=== PATIENT | female | born 1950 | race Caucasian/White ===

== ENCOUNTER 2016-09-12 06:23 | Day surgery (SDC) | payer MEDICARE ==
[2016-09-11 16:41] LABS: BASOPHILS 0.3 % (0.0-2.0); HEMATOCRIT 38.6 % (36.0-48.0); HEMOGLOBIN 12.9 g/dL (12-16); IMMATURE GRANULOCYTES 0.1 % (0-5); LYMPHOCYTES 25.6 % (15-50); MCH 30.5 pg (26.0-34.0); MCHC 33.4 g/dL (31.0-37.0); MCV 91.3 fL (80.0-100.0); MEAN PLATELET VOLUME 10.3 fL (7.4-10.4); MONOCYTES 8.1 % (2-11); NEUTROPHILS 63.9 % (40-80); PLATELET COUNT 200 10x3/uL (130-400); RBC 4.23 10x6/uL (4.00-5.40); RDW 13.9 % (11.5-14.5); WBC 8.6 10x3/uL (4.8-10.8)
[2016-09-11 16:49] LABS: ANION GAP 11.1 mmol/L (8-16); APTT 33.6 SECONDS (22.8-39.4); CALCIUM 8.8 mg/dL (8.5-10.1); CARBON DIOXIDE 30.8 mmol/L (21.0-32.0); CREATININE - SERUM 1.7 mg/dL (0.6-1.3); INR 1.04 (0.85-1.17); POTASSIUM - SERUM 3.9 mmol/L (3.5-5.1); PROTIME 13.5 SECONDS (11.6-15.0)
[~2016-09-12] VITALS: Ht 162.6 cm; Wt 61.7 kg
[2016-09-12] MEDS ORDERED: LIPITOR80 MG PO (09:09)
[2016-09-12] MEDS ORDERED: PENTOXIFYLLINE400 MG PO (09:09)
[2016-09-12] MEDS ORDERED: XANAX0.5 MG PO (09:10)
[2016-09-12] MEDS ORDERED: PRINIVIL20 MG PO (09:11)
[2016-09-12] MEDS ORDERED: COREG6.25 MG (09:11)
[2016-09-12] MEDS ORDERED: LANTUS INSULIN10 ML SC (09:12)
[2016-09-12] MEDS ORDERED: HYDROCODONE-APA1 TAB PO (09:12)
[2016-09-12] MEDS ORDERED: HUMALOG MIX 50/53 ML SC (09:13)
[2016-09-12] MEDS ORDERED: NEURONTIN600 MG PO (09:15)
[2016-09-12] MEDS ORDERED: FUROSEMIDE40 MG PO (09:16)
[2016-09-12] MEDS ORDERED: ISOSORBIDE DINI30 MG PO (09:16)
[2016-09-12 09:32] VITALS: Ht 162.6 cm; Wt 61.7 kg
--- NOTE | 2016-09-19 10:18 | OP ---
PATIENT NAME: BRI BEAN MEDICAL RECORD: [id number] :50 LOCATION:D.OPS ADMISSION DATE: SURGEON: SHARRON TREJO MD DATE OF OPERATION: 09/12/2016 REFERRING PHYSICIAN: Dr. Perez and Dr. Sands. POSTOPERATIVE DIAGNOSIS: Ischemic steal syndrome, left upper extremity secondary to a patent brachiocephalic AV fistula. POSTOPERATIVE DIAGNOSIS: Ischemic steal syndrome, left upper extremity secondary to a patent brachiocephalic AV fistula. OPERATION PERFORMED: Ultrasound-guided access times 1, fistulogram, retrograde brachial artery arteriogram, an open Glasgow banding procedure with placement of 2-0 Prolene ties spaced 1 cm apart, primary both tied around the cephalic vein over an endoluminal 4 mm diameter angioplasty balloon and also coiling of a large diverting tributary at the mid arm level. SURGEON: Sharron Trejo MD ANESTHESIA: General with LMA per DERRICK MAN. PREOPERATIVE NOTE: Ms. Bean is an unfortunate 65-year-old woman, who unfortunately addicted to tobacco and continues to smoke a pack of cigarettes daily. She had a left distal brachial artery to cephalic vein AV fistula created in May of another hospital and that fistula has remained patent and it is not being used and she has ischemic pain in the left hand and appears very diminished radial artery Doppler flow signals and ulnar artery flow signals, which do increase with occlusion of the AV fistula. The patient was brought to the operating room at this time with plans to do a fistulogram and retrograde brachial arteriogram and most likely a banding procedure, though I will possibly consider a major open revision by extending the arterial anastomosis proximally with the PTFE graft up on to the axillary artery. PROCEDURE IN DETAIL: Under general anesthesia in supine position, the patient was prepped and draped in sterile manner. The fistula was accessed near the shoulder directed in retrograde direction peripherally. This was done with ultrasound guidance and micropuncture technique and this led up to placement of a 6-Kuwaiti introducer. Contrast injection through the introducer with and without the fistula occluded proximally demonstrated a wide open fistula with no impairment to venous runoff and a large arterial anastomosis and essentially no flow distally into the forearm. I was then able to pass a guidewire and an angled glide catheter distally through the arterial anastomosis and then to the brachial artery and directing the catheter in a retrograde manner proximally in the brachial artery. I was unable to inject contrast and demonstrated the brachial artery and runoff anatomy with and without occlusion of the fistula and again, I demonstrated that there was very little flow into the forearm and hand with the fistula open and there is flow into the hand with the fistula occluded, although the vessels, radial and ulnar artery and palmar arches are very small. I noted that the arterial anastomosis was quite long relative to the arterial diameter and this is a pretty high flow fistula considering the size of the patient's vessels. I then made an incision just above the antecubital space and exposed the cephalic vein fistula and dissected it circumferentially. I placed a 4 mm diameter 4 cm long angioplasty balloon in that portion of the fistula OPERATIVE REPORT [id number] BRI BEAN over a Glidewire and I placed two 2-0 Prolene ligatures around the fistula and around the 4-mm diameter balloon. These were tied snugly and then the balloon removed. Repeat contrast studies demonstrated an approximately 2 cm length of the fistula to be narrowed to a diameter of 4 mm and a significant improvement inflow into the distal brachial and proximal radial and ulnar arteries. I also noted a large tributary about mid humeral level which seemed to be causing some significant diversion and I opted to go ahead and occlude that tributary with coils. I placed a 5 and the 6 tornado coil and then injected contrast, which demonstrated a complete occlusion of the tributary. At this point, I terminated the operation, removed the introducer sheath and obtained hemostasis with 4-0 Prolene [id number] suture. The incision exposing the fistula just above the antecubital space was irrigated with saline and infiltrated with 0.25% Marcaine without epinephrine. The skin incision was closed with running intracuticular 4-0 Monocryl and Dermabond glue and both sites were then dressed with Maxorb Ag, Tegaderm and Cavilon skin prep. There was an area has slight skin tear over the distal forearm and this area was carefully dressed also with a Tegaderm with some Cavilon skin prep. The patient's radial and ulnar arteries were again examined with Doppler and I found disappointingly that there did not seem to be a great deal of improvement nor significant improvement by then in the color and temperature of her hand. We went ahead then and awakened her and took her to the recovery room in stable condition. Blood loss during the procedure was insignificant and unreplaced and all sponges, instruments, and needles were accounted for. No drain was used and no surgical specimen was submitted for histopathology. The patient will be discharged home today. She will continue her home medications, which include topical verapamil cream b.i.d. to the base of the fingers on the left hand and Trental 400 mg p.o. t.i.d. She is again encouraged to abstain from the use of tobacco of all times. She will continue her other home medications, which I believe included a 10 mg hydrocodone tablets. I have not given her a prescription for any more narcotics today. I see her back in my office next week and we will decide whether additional surgery is necessary. I am hopeful that we are still be some clinical improvement in her pain symptoms from what we accomplish today. If not, I think the next option is to go ahead with a PTFE graft from the axillary artery proximally and tie it in probably in to in to the cephalic vein and the arm just above the area of the vein that are banded today. TRANSINT:[id number] Voice Confirmation ID: [id number] DOCUMENT ID: [id number] SHARRON TREJO MD at 1018 CC: ISABEL PEREZ MD, MARLENA UP and DEAN SANDS MD [id number] DICTATION DATE: 09/12/16 1259 CULINARY DIRECTOR: 09/12/16 194 [facility] 09/12/16 [facility] [address] [place] [address]
== END 2016-09-12 14:00 | disposition home or self-care (01) ==
LOC: D.OPS 06:23
PROVIDERS: Surgery
DX: T82.898A Other specified complication of vascular prosthetic devices, implants and grafts, initial encounter (principal); F17.219 Nicotine dependence, cigarettes, with unspecified nicotine-induced disorders

== ENCOUNTER → 2018-01-11 12:38 | Outpatient (CLI) | payer MEDICARE ==
[2016-09-12 09:32] VITALS: BMI 23.4
[~2018-01-11 12:38] MED LIST: COREG6.25 MG; FUROSEMIDE40 MG PO; HUMALOG MIX 50/53 ML SC; HYDROCODONE-APA1 TAB PO; ISOSORBIDE DINI30 MG PO; LANTUS INSULIN10 ML SC; LIPITOR80 MG PO; NEURONTIN600 MG PO; PENTOXIFYLLINE400 MG PO; PRINIVIL20 MG PO; XANAX0.5 MG PO
== END | disposition home or self-care (01) ==
LOC: D.CT 12:00
DX: G51.0 Bell's palsy (principal)

== ENCOUNTER → 2019-01-04 09:21 | Outpatient (CLI) | payer MEDICARE ==
[2016-09-12 09:32] VITALS: BMI 23.4
--- NOTE | 2019-01-10 15:03 | EC ---
PATIENT:BRI HERNANDEZ DATE OF SERVICE: 01/04/19 SEX: F MEDICAL RECORD: [id number] DATE OF : 50 LOCATION:D.FORMERLY [facility] AGE OF PATIENT: 68 ADMISSION DATE: 01/04/19 REFERRING PHYSICIAN: INTERPRETING PHYSICIAN: JAZZMINE HARVEY MD ECHOCARDIOGRAM REPORT ECHO CHARGES 4 ECHO COMPLETE Date: 01/04/19 CLINICAL DIAGNOSIS: CARDIOMYOPATHY/DYSPNEA H/O PVD/HTN ECHOCARDIOGRAPHIC MEASUREMENTS (adult normal given) AC root (d.<3.7cm) 2.7 cm LV Septum d (<1.2 cm> 1.2 cm Valve Excursion 1.8 cm LV Septum (systole) 1.4 cm Left Atria (s.<4.0cm> 5.3 cm LVPW d(<1.2cm) 1.0 cm RV (d.<2.3cm) 2.7 cm LVPW (sytole) 1.2 cm LV diastole(<5.6CM) 7.4 cm MV E-F(>70mm/sec) cm LV systole 6.3 cm LVOT Diameter 1.7 cm MV exc.(>10mm) cm Est.ejection fraction (50-75%) % DOPPLER: LVIT cm/sec A 172 cm/sec E 157 cm/sec LA cm/sec RVSP 47.0 mmHg LVOT 77.0 cm/sec AOP1/2T m/s Asc. Ao 152 cm/sec RVOT 52.0 cm/sec RA cm/sec PA 83.0 cm/sec AV Gradient Peak 9.2 mmHg AV Mean 4.5 mmHg AV Area 1.3 cm MV Gradient Peak 11.2 mmHg MV Mean 3.8 mmHg MV Area cm COMMENTS: OP - HC Event Planning Intern: 1 ISA LIS Stock Preparation Operator: 3 Dr. Diaz TAPE# PACS Pericardial Effusion N DATE OF SERVICE: Adequate 2D, color flow imaging, spectral Doppler, and M-Mode LVH is present. LV internal dimensions are dilated. LV is globally hypokinetic with reduced EF, estimated EF at 20% to 25%. Aortic valve sclerosis is without stenosis by Doppler interrogation. Left atrium is likewise dilated at 5.3 cm. Mitral valve shows no prolapse. Pjge-yw-qotlqghd MR. Right-sided chambers are grossly normal. Mild TR. ECHOCARDIOGRAM REPORT [id number] BRI HERNANDEZ TRANSINT:[id number] Voice Confirmation ID: [id number] DOCUMENT ID: [id number] JAZZMINE HARVEY MD at 1503 CC: [id number] DICTATION DATE: 01/06/19 1304 JAWBONE PULLER: 01/06/19 1343 DEP CLI 01/04/19 [place] [id number] [place] [id number]
== END | disposition home or self-care (01) ==
LOC: D.HCCARDIO 09:21
PROVIDERS: ATTEND Internal Medicine Interventional Cardiology
DX: I25.10 Atherosclerotic heart disease of native coronary artery without angina pectoris (principal)

== ENCOUNTER 2019-09-13 15:54 | Inpatient (IN) | payer MEDICARE ==
[~2019-09-13] VITALS: Ht 165.1 cm; Wt 77.6 kg
[~2019-09-13 15:54] MED LIST changes: -COREG6.25 MG; +COREG6.25 MG PO
[2019-09-13 17:24] VITALS: BP 122/71
[2019-09-13 17:33] VITALS: BP 122/71
[2019-09-13 17:33] LABS: HEMATOCRIT 37.3 % (36.0-48.0); HEMOGLOBIN 12.2 g/dL (12-16); MCH 30.7 pg (26.0-34.0); MCHC 32.7 g/dL (31.0-37.0); PLATELET COUNT 182 10x3/uL (130-400); RBC 3.97 10x6/uL (4.00-5.40); RDW 14.5 % (11.5-14.5)
[2019-09-13 17:50] LABS: CALCIUM 8.9 mg/dL (8.5-10.1); CARBON DIOXIDE 22.6 mmol/L (21.0-32.0); CREATININE - SERUM 3.8 mg/dL (0.6-1.3); POTASSIUM - SERUM 4.6 mmol/L (3.5-5.1)
[2019-09-13 17:56] LABS: LYMPHOCYTES 3 % (15-50); MONOCYTES 2 % (2-11); NEUTROPHILS 90 % (40-80); PLATELET ESTIMATE NORMAL
[2019-09-13 18:18] LABS: BILIRUBIN - TOTAL 1.01 mg/dL (0.2-1.3); MAGNESIUM - SERUM 1.8 mg/dL (1.8-2.4); PHOSPHOROUS 4.8 mg/dL (2.5-4.9)
--- NOTE | 2019-09-13 18:55 | NUR ---
I CONCUR WITH THE PEDIATRIC SOCIAL WORKER ASSESSMENT OF THIS PATIENT.
--- NOTE | 2019-09-13 19:26 | NUR ---
EVENING ROUNDS COMPLETE. PT LAYING IN BED. AROUSES TO VOICE. FAMILY AT BEDSIDE. NO SIGNS OF DISTRESS. PT DENIES ANY NEEDS AT THIS TIME. CL IN REACH, BED IN LOWEST POSITION.
[2019-09-13 20:00] VITALS: BP 133/73
--- NOTE | 2019-09-13 23:15 | NUR ---
THIS NURSE NOTED THAT PT WAS ONLY HAVING 4 BREATHS PER MINUTE. VSS STABLE WITH BP 148/75, HR 86, O2 SAT 98% ON 3 L NC.
--- NOTE | 2019-09-13 23:36 | NUR ---
FOLLOWED THROUGH WITH NARCAN ORDER DIRECTED. PT HAD NO RESPONSE TO NARCAN. PT IS STILL JUST LETHARGIC. WITH RESP AT 4 BPM. PAGED AMADO ADVERTISING STRATEGIST AT THIS TIME. ABG COMPLETE. PT APPEARS TO BE IN RESPIRATORY ACIDOSIS.
[2019-09-14] VITALS: BP 149/70
[2019-09-14 04:00] VITALS: BP 135/65
--- NOTE | 2019-09-14 04:10 | NUR ---
INCREASED FIO2 TO 60% PER ABG
--- NOTE | 2019-09-14 07:43 | NUR ---
REPORT RECIEVED. PT SITTING SEMI FOWLERS CURRENTLY WEARING BIPAP. PT IS CURRENTLY LETHARGIC. PT HAS A R FA PIV INFUSING NS @ 50. SHE IS A L ARM RESERVE DUE TO A L AV FISTULA. BED LOCKED AND IN LOWEST POSITION. WILL CTM
[2019-09-14 09:24] VITALS: BP 124/67
[2019-09-14 09:31] VITALS: BP 124/67
--- NOTE | 2019-09-14 13:16 | NUR ---
RIGHT LOWER LEG HAS 2CM X 4CM BLISTER AND NUMEROUS OTHER RUPTURED BLISTERS. THE LEG IS EDEMATOUS, RED AND SHINY. THERE IS A MODERATE SEROUS DRAINAGE WITHOUT ODOR. RECOMMENDED KEEPING CLEAN, DRY AND ELEVATED. WOUND CARE WILL MONITOR.
[2019-09-14 13:39] VITALS: Ht 165.1 cm; Wt 77.6 kg
--- NOTE | 2019-09-14 16:14 | NUR ---
RESP UL ON CONT PUSE OX SHOWS 97%. CALL LIGHT IN REACH. WILL MONITOR NEEDS.
--- NOTE | 2019-09-14 19:37 | NUR ---
EVENING ROUNDS COMPLETE. PT SITTING UP IN BED, ALERT. FAMILY AT BEDSIDE. PT C/O PAIN IN R LEG 05/05. PT DOES NOT APPEAR TO BE IN DISTRESS. WILL REVIEW EMAR. PT DENIES ANY OTHER NEEDS AT THIS TIME CL IN REACH, BED IN LOWEST POSITION.
[2019-09-14 20:00] VITALS: BP 135/64
[2019-09-15] VITALS (7 sets, daily range): BP systolic 135–150; BP diastolic 45–74
[2019-09-15 05:35] LABS: BASOPHILS 0.2 % (0-2); EOSINOPHILS 1.3 % (0-7); HEMATOCRIT 33.9 % (36.0-48.0); HEMOGLOBIN 10.8 g/dL (12-16); IMMATURE GRANULOCYTES 0.2 % (0-5); LYMPHOCYTES 10.6 % (15-50); MCH 30.4 pg (26.0-34.0); MCHC 31.9 g/dL (31.0-37.0); MCV 95.5 fL (80.0-100.0); MEAN PLATELET VOLUME 11.9 fL (7.4-10.4); MONOCYTES 5.1 % (2-11); NEUTROPHILS 82.6 % (40-80); PLATELET COUNT 172 10x3/uL (130-400); RBC 3.55 10x6/uL (4.00-5.40); RDW 14.8 % (11.5-14.5)
[2019-09-15 05:58] LABS: ALBUMIN 2.5 g/dL (3.4-5.0); ANION GAP 17.6 mmol/L (8-16); BILIRUBIN - TOTAL 0.62 mg/dL (0.2-1.3); CALCIUM 8.6 mg/dL (8.5-10.1); CARBON DIOXIDE 21.8 mmol/L (21.0-32.0); CREATININE - SERUM 4.1 mg/dL (0.6-1.3); POTASSIUM - SERUM 4.4 mmol/L (3.5-5.1); PROTEIN - SERUM 6.1 g/dL (6.4-8.2); VANCOMYCIN - RANDOM 19.3 ug/mL (10.0-20.0)
[2019-09-15 06:21] LABS: WBC 9.5 10x3/uL (4.8-10.8)
[2019-09-15 11:28] LABS: BILIRUBIN NEGATIVE (NEGATIVE); GLUCOSE NEGATIVE (NEGATIVE); KETONE NEGATIVE (NEGATIVE); NITRITE NEGATIVE (NEGATIVE); SPECIFIC GRAVITY 1.015 (1.005-1.020); UROBILINOGEN NORMAL (NORMAL)
[2019-09-15 11:29] LABS: BACTERIA MODERATE /hpf (NEGATIVE); EPITHELIAL CELLS 0-5 /hpf (0-5); RED CELLS - URINE 0-5 /hpf (0-5); TALC POWDER CRYSTALS 0-5 /hpf (NONE SEEN)
--- NOTE | 2019-09-15 19:40 | NUR ---
REPORT RECIEVED AND ROUNDIGN COMPLETE. PATIENT LATYING IN BED IN HIGH FOWLERS, PATIENT HAS EYES CLOSED BUT EASILY AROUSED. PATIENT IS WEARING NASAL CANNULA AT THIS TIME WITH O2 AT 3L. PATIENT STATES SHE HAS NO NEEDS AT THIS TIME. PATIENT HAS A RIGHT FOREARM PIV THAT IS RUNNING FLUIDS AT KVO, PIV IS PATENT AND SHOWS NO S/SX OF INFILTRATION OR INFECTION. PATIENT SHOWS NO S/SX OF DISTRESS AND STATES SHE HAS NO NEEDS, CALL LIGHT WITHIN REACH AND BED IN LOWEST LOCKED POSITION.
--- NOTE | 2019-09-15 23:52 | NUR ---
WHILE PUTTING PATIENT ON BED OWENS SHE COMPLAINED OF N/V, TREATED PER SEP.
[2019-09-16 01:18] VITALS: BP 135/68
--- NOTE | 2019-09-16 01:56 | NUR ---
TALKED WITH JENNI FROM RENAL ABOUT PAIN MEDICATION SHE SAID TO CHANGE ORDER WILL PUT NEW ORDER IN AND FOLLOW IT WITH PATIENT.
--- NOTE | 2019-09-16 03:45 | NUR ---
I have reviewed this patient and I concur with the Shift Assessment completed by the Licensed Practical Nurse today this shift.
[2019-09-16 04:21] LABS: BASOPHILS 0.2 % (0-2); EOSINOPHILS 0.4 % (0-7); HEMATOCRIT 35.3 % (36.0-48.0); HEMOGLOBIN 11.2 g/dL (12-16); IMMATURE GRANULOCYTES 0.2 % (0-5); LYMPHOCYTES 6.9 % (15-50); MCH 30.5 pg (26.0-34.0); MCHC 31.7 g/dL (31.0-37.0); MCV 96.2 fL (80.0-100.0); MEAN PLATELET VOLUME 11.4 fL (7.4-10.4); MONOCYTES 3.6 % (2-11); NEUTROPHILS 88.7 % (40-80); PLATELET COUNT 179 10x3/uL (130-400); RBC 3.67 10x6/uL (4.00-5.40); RDW 14.4 % (11.5-14.5); WBC 8.5 10x3/uL (4.8-10.8)
[2019-09-16 04:42] VITALS: BP 150/81
[2019-09-16 04:51] LABS: ALBUMIN 2.5 g/dL (3.4-5.0); ANION GAP 17.8 mmol/L (8-16); BILIRUBIN - TOTAL 0.78 mg/dL (0.2-1.3); CARBON DIOXIDE 22.8 mmol/L (21.0-32.0); CREATININE - SERUM 4.1 mg/dL (0.6-1.3); POTASSIUM - SERUM 4.6 mmol/L (3.5-5.1); PROTEIN - SERUM 6.8 g/dL (6.4-8.2)
--- NOTE | 2019-09-16 07:45 | NUR ---
AM ROUNDS COMPLETED. INTRODUCED MYSELF TO PT PRIMARY RN FOR TODAYS SHIFT. PT IS A&O SITTING UP IN BED RESTING QUIETLY. PT NEEDING TO USE BR. ASSISTED HER ONTO BEDPAN AND SHE ROLLED VERY WELL ON HER OWN AND DID NOT NEED ASSISTANCE. VOIDED 450ML CLEAR YELLOW URINE. REPOSITIONED PT UP IN BED FOR COMFORT AND WILL CPOC.
[2019-09-16 08:00] VITALS: BP 149/86
[2019-09-16] MEDS ORDERED: INSULIN LISPRO (10:01)
[2019-09-16] MEDS ORDERED: BUMEX2 MG PO (10:01)
[2019-09-16] MEDS ORDERED: LASIX80 MG PO (10:02)
--- NOTE | 2019-09-16 10:19 | NUR ---
PT IS VOMITING YELLOWISH WITH FOOD PARTICLES LIQUID. PROVIDED WASH CLOTHES AND EMESIS BAGS. ALREADY PROVIDED PT WITH SEYMOUR CLAY EARLIER, DISCUSSED WITH JAZMINE BRAUN AT BEDSIDE AND WILL GET SOMETHING EXTRA TO HELP.
[2019-09-16 12:00] VITALS: BP 134/74
--- NOTE | 2019-09-16 12:39 | NUR ---
PT CALLED NEEDING TO USE BEDPAN. ASSISTED PT AND SHE WAS ABLE TO VOID 350CC CLEAR YELLOW URINE. REPOSITIONED PT UP IN BED AND SAT HER UP SO SHE COULD EAT. PTS R.LEG IS WEEPING BUT ALSO REALLY DRY AND CRACKING ON HER FOOT SO I PROVIDED HER WITH SOME BARRIER SPRAY WITH SKIN HEALING PROPERTIES AND RUBBED IT ON HER ARMS WELL TO HELP WITH DRY SKIN. PT VOICED THANKS AND STATES IT ALREADY FEELS A LITTLE BETTER. PT STATES HER NAUSEA HAS WENT AWAY AFTER SHE VOMITED THAT ONE TIME. NO CURRENT NEEDS AT THIS TIME. CL IN REACH, BED IN LOWEST, SIDE RAILS X2. WILL CTM.
--- NOTE | 2019-09-16 13:29 | NUR ---
Nutrition Follow-up: Pt reports poor appetite. Observed small amt of lunch eaten. Vomited this AM but no N/V at time of visit. C/o dry mouth. Agreed to try Nepro. Diet: Renal ADA No new wt; last wt: 171# (09/14) Last BM: 09/11 per pt Labs noted: K+ 4.6, Glu 152, Alb 2.5 Meds noted: Pepcid, Bumex, Humalog, Zofran -Will send Nepro with dinner tonight for pt trial. - may consider appetite stimulant. -RD following.
[2019-09-16 16:00] VITALS: BP 144/77
--- NOTE | 2019-09-16 16:29 | NUR ---
FSBS 181 PROVIDED PT WITH INSULIN PER SS. PT SITTING UP IN BED RESTING QUIETLY AND STATES SHE IS FEELING PRETTY GOOD OVERALL AND HAS HAD A GOOD DAY. PT WAITING PATIENTLY ON DINNER. NO CURRENT NEEDS. WILL CTM.
--- NOTE | 2019-09-16 16:42 | NUR ---
Rehab Note- Acute Inpatient Rehab prescreen order received. The patient has [facility] insurance and will require a PreAuth prior to an inpatient acute rehab stay. The patient has a pending OT Eval that will be needed for the PreAUth process. Will follow at this time. Thank you for this referral! Lidia Chaudhari RN Clinical Liaison, [facility] Rehab
--- NOTE | 2019-09-16 18:45 | NUR ---
PT C/O PAIN REQUESTING PRN PAIN MEDICATION. WILL PROVIDE HER WITH ONE. PT STATES SHE HAD A GOOD DAY OVERALL. PT IS CURRENTLY RESTING WITH HER NC OFF AND PULSE OX IS 92%. PT DENIES ANY FURTHER NEEDS AT THIS TIME. WILL PASS ON IN SHIFT REPORT.
--- NOTE | 2019-09-16 18:53 | MORECARE ---
CASE MANAGEMENT DISCHARGE SUMMARY PATIENT: BRI HERNANDEZ UNIT: [id number] ADM DATE: 09/13/19 AGE: 68 : 50 SEX: F ROOM/BED: D.2103 AUTHOR: ISABELLE SANCHEZ PHYSICIAN: REFERRING PHYSICIAN: CRISTINO KNOTT MD DATE OF SERVICE: 09/16/19 Discharge Plan Patient Name: BRI HERNANDEZ Facility: [facility]:[place] : 1950 Planned Disposition: Inpatient Rehab Anticipated Discharge Date: 09/19/19 Discharge Date: Expected LOS: 6 Initial Reviewer: [email or web address] Initial Review Date: 09/16/2019 Generated: 09/16/19 7:53 pm DCPIA - Discharge Planning Initial Assessment Updated by [email or web address]: Angel George on 09/16/19 6:49 pm * Is the patient Alert and Oriented? Yes * How many steps to enter\exit or inside your home? NONE * PCP DR. RHOADES * Pharmacy [facility] * Preadmission Environment Home with Family * ADLs Independent * Equipment Bedside Commode Oxygen Rolling Walker Wheelchair * Other Equipment HOME OXYGEN ONLY [place] * List name and contact numbers for known caregivers / representatives who currently or will assist patient after discharge: KRISTIE HERNANDEZ, SPOUSE, * Verbal permission to speak to the caregivers and representatives has been obtained from the patient. N/A * Community resources currently utilized None * Please name any agencies selected above. NONE * Additional services required to return to the preadmission environment? No * Can the patient safely return to the preadmission environment? Yes * Has this patient been hospitalized within the prior 30 days at any hospital? No External Providers External Provider: [facility] Next Contact Date: 09/16/2019 Service Request Date: Service Type: Resolution: Reviewer: Comments: Patient Name: BRI HERNANDEZ Page [phone] at 1853 All edits/amendments must be made on the electronic document DICTATION DATE: 09/16/191852 PRODUCTION HARDENER: IRAM 09/16/191852 RPT#: [id number] DC DATE: STATUS: ADM IN [facility] [address] [place] [address] END OF REPORT
--- NOTE | 2019-09-16 19:07 | MORECARE ---
CASE MANAGEMENT DISCHARGE SUMMARY PATIENT: BRI HERNANDEZ UNIT: [id number] ADM DATE: 09/13/19 AGE: 68 : 50 SEX: F ROOM/BED: D.2103 AUTHOR: LAURA,DOC PHYSICIAN: REFERRING PHYSICIAN: CRISTINO KNOTT MD DATE OF SERVICE: 09/16/19 Discharge Plan Patient Name: BRI HERNANDEZ [facility] [facility] 1950 Planned Disposition: Inpatient Rehab Anticipated Discharge Date: 09/19/19 Discharge Date: Expected LOS: 6 Initial Reviewer: [email or web address] Initial Review Date: 09/16/2019 Generated: 09/16/19 8:06 pm Comments DCP- Discharge Planning Updated by [email or web address]: Angel George on 09/16/19 6:[address] Patient Name: BRI HERNANDEZ Admission Status: Urgent Accout number: [id number] Admission Date: 09-13-2019 : 1950 Admission Diagnosis: Attending: CRISTINO KNOTT Current LOS: 3 Anticipated DC Date: 09-19-2019 Planned Disposition: Inpatient Rehab Primary Insurance: [facility] MEDICARE SOLUTIONS PLANNED EXTERNAL PROVIDER: [facility] Discharge Planning Comments: CM RECEIVED ORDE FOR NIPPV AND OXYGEN TESTING. ORDER FOR WALK TESTING FOR HOME OXYGEN RECEIVED. CM MET WITH PT IN ROOM TO DISCUSS DISCHARGE PLANNING AND NEEDS. PT REPORTS LIVING AT HOME INDEPENDENTLY WITH HER SPOUSE. PT HAS BEDSIDE COMMODE, HOME OXYGEN FROM [facility], ROLLING WALKER AND SHOWER CHAIR. PT HAS NO OUTSIDE SERVICES ASSISTING IN THE HOME. CM DISCUSSED AVAILABILITY OF HOME HEALTH, REHAB SERVICES AND MEDICAL EQUIPMENT. PT WANTS REHAB AT [facility] AND IF DECLINED, [facility]. PT WANTS HER NIPPV FROM [facility]. CHOICE COMPLETED. CM OBTAINED ORDER FOR INPATIENT REHAB PRESCREENING. CM FAXED REFERRAL TO [facility] FOR NIPPV, FAX [phone]. CM WAITING INPATIENT REHAB PRESCREENING FOR [facility] IN[facility] WELL INSURANCE AUTHORIZATION FOR REHAB SERVICES. CM WAITING PROCESSING AND INSURANCE APPROVAL FOR NIPPV FROM [facility]. Spring Forger: Angel George DCPIA - Discharge Planning Initial Assessment Updated by [id number]: Angel George on 09/16/19 6:49 pm * Is the patient Alert and Oriented? Yes * How many steps to enter\exit or inside your home? NONE * PCP DR. RHOADES * Pharmacy [facility] * Preadmission Environment Home with Family * ADLs Independent * Equipment Bedside Commode Oxygen Rolling Walker Wheelchair * Other Equipment HOME OXYGEN ONLY [place] * List name and contact numbers for known caregivers / representatives who currently or will assist patient after discharge: KRISTIE HERNANDEZ, SPOUSE, * Verbal permission to speak to the caregivers and representatives has been obtained from the patient. N/A * Community resources currently utilized None * Please name any agencies selected above. NONE * Additional services required to return to the preadmission environment? No * Can the patient safely return to the preadmission environment? Yes * Has this patient been hospitalized within the prior 30 days at any hospital? No Coverage Notice Reviewer: [email or web address] - Angel George Notice Issued Date-Time: 09/16/2019 15:55 Notice Type: Patient Choice Letter Notice Delivered To: Patient Relationship to Patient: Power Saw Operator Name: Delivery Method: HAND - Hand Delivered Faye Days: Prior Verbal Notification: Recipient Understood Notice: Yes Recipient Signature: Yes Med Rec Note Co-signed by Attending: Coverage Notice Comment: OJSE E FOR DME 1-[facility] INPT [facility]HAB 2-[facility] Last DP export: 09/16/19 5:53 p Patient Name: BRI HERNANDEZ Page [phone] at 1907 All edits/amendments must be made on the electronic document DICTATION DATE: 09/16/191905 BUILDING CODE INSPECTOR: IRAM 09/16/191905 RPT#: [id number] DC DATE: STATUS: ADM IN [facility] [address] [place] [address] END OF REPORT
[2019-09-16 20:30] VITALS: BP 122/69
[2019-09-17 00:30] VITALS: BP 138/67
[2019-09-17 04:30] VITALS: BP 136/67
[2019-09-17 04:56] LABS: BASOPHILS 0.2 % (0-2); EOSINOPHILS 1.9 % (0-7); HEMATOCRIT 33.8 % (36.0-48.0); HEMOGLOBIN 10.8 g/dL (12-16); IMMATURE GRANULOCYTES 0.2 % (0-5); LYMPHOCYTES 12.5 % (15-50); MCH 30.3 pg (26.0-34.0); MCV 94.9 fL (80.0-100.0); MEAN PLATELET VOLUME 11.3 fL (7.4-10.4); MONOCYTES 6.3 % (2-11); NEUTROPHILS 78.9 % (40-80); PLATELET COUNT 183 10x3/uL (130-400); RBC 3.56 10x6/uL (4.00-5.40); RDW 14.2 % (11.5-14.5); WBC 8.2 10x3/uL (4.8-10.8)
[2019-09-17 05:26] LABS: ALBUMIN 2.3 g/dL (3.4-5.0); ANION GAP 14.7 mmol/L (8-16); BILIRUBIN - TOTAL 0.6 mg/dL (0.2-1.3); CALCIUM 8.7 mg/dL (8.5-10.1); CARBON DIOXIDE 23.3 mmol/L (21.0-32.0); CREATININE - SERUM 4.2 mg/dL (0.6-1.3); PROTEIN - SERUM 6.5 g/dL (6.4-8.2); VANCOMYCIN - RANDOM 28.5 ug/mL (10.0-20.0)
[2019-09-17 08:00] VITALS: BP 146/72
--- NOTE | 2019-09-17 09:24 | NUR ---
PT AWAKE AND ORIENTED, FALLS ASLEEP EASILY. UP TO SIDE SIDE OF BED WITH MINIMAL ASSIST, PT STATES SHE CAN'T SEEM TO BARE WEIGHT ON HER LEG/FOOT/ CL IN REACHH, SRX2.
--- NOTE | 2019-09-17 11:23 | NUR ---
I have reviewed this patient and I concur with the Shift Assessment completed by the Licensed Practical Nurse today this shift.
[2019-09-17 16:00] VITALS: BP 126/75
[2019-09-17 21:30] VITALS: BP 156/74
[2019-09-18 04:30] VITALS: BP 148/72
[2019-09-18 05:02] LABS: BASOPHILS 0.5 % (0-2); EOSINOPHILS 4.2 % (0-7); HEMATOCRIT 32.9 % (36.0-48.0); HEMOGLOBIN 10.5 g/dL (12-16); IMMATURE GRANULOCYTES 0.3 % (0-5); LYMPHOCYTES 16.2 % (15-50); MCH 30.3 pg (26.0-34.0); MCHC 31.9 g/dL (31.0-37.0); MCV 94.8 fL (80.0-100.0); MEAN PLATELET VOLUME 11.3 fL (7.4-10.4); MONOCYTES 9.4 % (2-11); NEUTROPHILS 69.4 % (40-80); PLATELET COUNT 174 10x3/uL (130-400); RBC 3.47 10x6/uL (4.00-5.40); RDW 14.5 % (11.5-14.5); WBC 6.5 10x3/uL (4.8-10.8)
[2019-09-18 05:30] LABS: ALBUMIN 2.3 g/dL (3.4-5.0); ANION GAP 13.3 mmol/L (8-16); BILIRUBIN - TOTAL 0.56 mg/dL (0.2-1.3); CALCIUM 8.4 mg/dL (8.5-10.1); CARBON DIOXIDE 25.7 mmol/L (21.0-32.0); CREATININE - SERUM 4.1 mg/dL (0.6-1.3); PROTEIN - SERUM 6.1 g/dL (6.4-8.2)
[2019-09-18 08:00] VITALS: BP 150/65
--- NOTE | 2019-09-18 09:27 | NUR ---
PT AWAKE AND OREINTED, USED BEDPAN. LEG LOOKS WORSE THAN YESTERDAY. SHINNY AND GREEN DRAINAGE IS MORE PRESENT. PT DOES STATE THAT THE LEG DOES NOT HURT MORE AND IS EASIER TO MOVE. CL IN REACH, SRX2, NO FAMILY AT BEDSIDE.
[2019-09-18 16:00] VITALS: BP 153/70
--- NOTE | 2019-09-18 19:22 | NUR ---
REPROT RECEIVED. PT UP IN BED WATCHING TV. ASSISTED PT TO PUT O2 BACK ON. RR EVEN AND UNLABORED. NO S/SX OF DISTRESS OBSERVED. PT DENIES NEEDS AT THIS TIME. SRX2, WILL CTM.
[2019-09-18 20:30] VITALS: BP 148/66
[2019-09-19 00:30] VITALS: BP 143/68
[2019-09-19 04:30] VITALS: BP 144/73
[2019-09-19 05:59] LABS: BASOPHILS 0.3 % (0-2); EOSINOPHILS 3.2 % (0-7); HEMATOCRIT 33.8 % (36.0-48.0); HEMOGLOBIN 10.9 g/dL (12-16); IMMATURE GRANULOCYTES 0.3 % (0-5); LYMPHOCYTES 13.3 % (15-50); MCH 30.2 pg (26.0-34.0); MCHC 32.2 g/dL (31.0-37.0); MCV 93.6 fL (80.0-100.0); MEAN PLATELET VOLUME 11.2 fL (7.4-10.4); MONOCYTES 8.7 % (2-11); NEUTROPHILS 74.2 % (40-80); PLATELET COUNT 177 10x3/uL (130-400); RBC 3.61 10x6/uL (4.00-5.40); RDW 14.3 % (11.5-14.5); WBC 6.5 10x3/uL (4.8-10.8)
[2019-09-19 06:41] LABS: ALBUMIN 2.5 g/dL (3.4-5.0); ANION GAP 15.3 mmol/L (8-16); BILIRUBIN - TOTAL 0.72 mg/dL (0.2-1.3); CARBON DIOXIDE 24.6 mmol/L (21.0-32.0); CREATININE - SERUM 3.6 mg/dL (0.6-1.3); POTASSIUM - SERUM 3.9 mmol/L (3.5-5.1); PROTEIN - SERUM 6.6 g/dL (6.4-8.2); VANCOMYCIN - RANDOM 21.8 ug/mL (10.0-20.0)
--- NOTE | 2019-09-19 07:35 | NUR ---
PT RESTING PEACEFULLY, EYES CLOSED, BREATHS EVEN REGULAR AND UNALBORED. NO SIGNS OR SYMPTOMS OF ACUTE DISTRESS NOTED AT THIS TIME. CL IN REACH, SRX2.
[2019-09-19 10:26] VITALS: BP 144/62
--- NOTE | 2019-09-19 10:29 | NUR ---
PT AWAKE AND ORIENTED, FALLS ASLEEP EASILY PER HER TYPICAL. AT BEDSIDE. CL IN REACH, SRX2. NO COMPLAINTS OR CONCERNS AT THIS TIME. RIGHT LEG LOOKS MUCH BETTER THAN PREVIOUS DAYS, LESS RED/SWELLING.
--- NOTE | 2019-09-19 11:42 | NUR ---
I have reviewed this patient and I concur with the Shift Assessment completed by the Licensed Practical Nurse today this shift.
--- NOTE | 2019-09-19 12:19 | NUR ---
PT AWAKE AND ORIENTED, SITTING IN RECLINER BY BEDSIDE. STATES SHE FEELS A LOT BETTER WHEN SHE GETS TO MOVE AROUND. AT BEDSIDE. NO COMPLAINTS OR CONCERNS AT THIS TIME. CL IN REACH, SRX2.
[2019-09-19 14:55] VITALS: BP 148/67
--- NOTE | 2019-09-19 15:32 | NUR ---
Rehab Note- PreAuth initiated and clinicals faxed in for review for possible inpatient acute rehab stay. Will continue to follow at this time. Thank you for this referral! Jennifer Chaudhari RN Clinical Liaison, [facility] Rehab
--- NOTE | 2019-09-19 17:33 | NUR ---
PT AWAKE AND ORIENTED, LYING IN BED EATING SUPPER. SON EXPRESSED CONCERNS ABOUT HER MENTAL STATE AND SOMEWHAT CHRONIC CONFUSION. THEY SPOKE TO DR. SMALL. ASSISTED PT WITH SITTING UP IN BED, THEN SHE SPILLED HER TEA. CLEAN AND DRY AT THIST IEM. CL IN REACH,S RX2.
--- NOTE | 2019-09-19 17:52 | NUR ---
OT NOTE: PT COMPLETED SUPINE TO SIT WITH MIN A. PT COMPLETED SIT TO STAND WITH MOD A. PT COMPLETED BED TO CHAIR TRANSFER WITH MOD A WITH RW. PT COMPLETED HAIR GROOMING WITH SETUP. [phone] THANK YOU, MUNIR ALBARRAN
--- NOTE | 2019-09-19 20:00 | NUR ---
INTRODUCE MYSELF TO PT. ASSIST PT ON A BED OWENS. LEFT AKA NOTED. PT ON RA. SPO2 94. VSS, AAOX3. PT DENIES ANY FURTHER NEEDS AT THIS TIME. CL WITHIN REACH.
[2019-09-19 20:36] VITALS: BP 144/71
[2019-09-20 00:28] VITALS: BP 155/75
[2019-09-20 05:36] LABS: BASOPHILS 0.4 % (0-2); EOSINOPHILS 2.2 % (0-7); HEMATOCRIT 33.2 % (36.0-48.0); HEMOGLOBIN 10.9 g/dL (12-16); IMMATURE GRANULOCYTES 0.3 % (0-5); LYMPHOCYTES 15.1 % (15-50); MCH 30.7 pg (26.0-34.0); MCHC 32.8 g/dL (31.0-37.0); MCV 93.5 fL (80.0-100.0); MEAN PLATELET VOLUME 11.5 fL (7.4-10.4); MONOCYTES 6.7 % (2-11); NEUTROPHILS 75.3 % (40-80); PLATELET COUNT 182 10x3/uL (130-400); RBC 3.55 10x6/uL (4.00-5.40); RDW 14.2 % (11.5-14.5); WBC 6.7 10x3/uL (4.8-10.8)
[2019-09-20 05:59] LABS: ALBUMIN 2.5 g/dL (3.4-5.0); ANION GAP 14.7 mmol/L (8-16); BILIRUBIN - TOTAL 0.63 mg/dL (0.2-1.3); CALCIUM 8.6 mg/dL (8.5-10.1); CARBON DIOXIDE 25.1 mmol/L (21.0-32.0); CREATININE - SERUM 3.4 mg/dL (0.6-1.3); POTASSIUM - SERUM 3.8 mmol/L (3.5-5.1); PROTEIN - SERUM 6.4 g/dL (6.4-8.2); VANCOMYCIN - RANDOM 17.5 ug/mL (10.0-20.0)
[2019-09-20 06:30] VITALS: BP 151/72
--- NOTE | 2019-09-20 06:45 | NUR ---
PT RECEIVED AWAKE AND ALERT IN BED. NO COMPLAINTS.
[2019-09-20 08:34] VITALS: BP 151/67
--- NOTE | 2019-09-20 10:45 | NUR ---
PT SITTING UP IN CHAIR. BED LINENS CHANGED. RLE WITH REDNESS AND WEEPING, SWELLING NOTED.
[2019-09-20 11:50] VITALS: BP 146/60
--- NOTE | 2019-09-20 13:12 | NUR ---
Nutrition Follow-up: Pt reports improvement in appetite/PO intake. Ate majority of breakfast this AM. Drinking Nepro PRN (~1/day). Pt and family report that she needs assistance sitting up to eat. Denies N/V. Reports last BM was 09/11. Diet: Renal ADA PO intake: 53% avg x 4 meals No new wt; last wt: 171# (09/14) Labs noted: K+ 3.8, Glu 144, Alb 2.5 Meds noted: Protonix, Pepcid, Humalog -Continue current diet as tolerated. -MD may consider GI motility agent; last BM 09/11 per pt. -Monitor wt. -Spoke with nurse child welfare manager Echo re: pt needing assistance sitting up to eat. -RD following.
[2019-09-20 16:04] VITALS: BP 119/56
--- NOTE | 2019-09-20 17:06 | NUR ---
OT NOTE: PT COMPLETED BED MOBILITY TASKS WITH MIN A. PT REQUIRED MIN A FOR SUPINE TO SIT. PT REQUIRED MOD/MAX A FOR BED TO CHAIR TRANSFER. PT COMPLETED HAIR GROOMING WITH SET UP AT EOB. PT IS ABLE TO SIT AT EOB WITH STATIC BALANCE WITH SBA. [phone] THANK YOU,MUNIR ALBARRAN
--- NOTE | 2019-09-20 19:20 | NUR ---
RESTING WITH EYES CLOSED O2 IN PLACE BED LOW AND LOCKED SR X2 AND CALL LIGHT IS WITH PT
--- NOTE | 2019-09-20 20:04 | NUR ---
ASSISTED WITH BED OWENS AND DID SAFTY CHECK
[2019-09-20 21:03] VITALS: BP 149/81
[2019-09-21 01:51] VITALS: BP 137/74
--- NOTE | 2019-09-21 02:10 | NUR ---
I have reviewed this patient and I concur with the Shift Assessment completed by the Licensed Practical Nurse today this shift.
[2019-09-21 05:21] LABS: BASOPHILS 0.6 % (0-2); EOSINOPHILS 2.6 % (0-7); HEMATOCRIT 33.6 % (36.0-48.0); HEMOGLOBIN 10.8 g/dL (12-16); IMMATURE GRANULOCYTES 0.7 % (0-5); LYMPHOCYTES 13.7 % (15-50); MCH 30.3 pg (26.0-34.0); MCHC 32.1 g/dL (31.0-37.0); MCV 94.4 fL (80.0-100.0); MEAN PLATELET VOLUME 11.2 fL (7.4-10.4); MONOCYTES 9.1 % (2-11); NEUTROPHILS 73.3 % (40-80); PLATELET COUNT 186 10x3/uL (130-400); RBC 3.56 10x6/uL (4.00-5.40); RDW 14.1 % (11.5-14.5); WBC 6.8 10x3/uL (4.8-10.8)
[2019-09-21 05:45] LABS: ALBUMIN 2.5 g/dL (3.4-5.0); BILIRUBIN - TOTAL 0.6 mg/dL (0.2-1.3); CALCIUM 8.6 mg/dL (8.5-10.1); CARBON DIOXIDE 23.5 mmol/L (21.0-32.0); CREATININE - SERUM 3.2 mg/dL (0.6-1.3); POTASSIUM - SERUM 3.5 mmol/L (3.5-5.1); PROTEIN - SERUM 6.4 g/dL (6.4-8.2); VANCOMYCIN - RANDOM 25.1 ug/mL (10.0-20.0)
[2019-09-21 06:34] VITALS: BP 132/78
--- NOTE | 2019-09-21 08:09 | NUR ---
RESTING IN BED, NO DISTRESS NOTED, SL IN PLACE, CONT TO MONITOR SUGARS, R LOWER LEG WITH REDDNESS AND WOUNDS CONTINUOUS WELD PIPE MILL SUPERVISOR
[2019-09-21 08:33] VITALS: BP 154/79
--- NOTE | 2019-09-21 09:30 | NUR ---
PT IN ISOLATION FOR ESBL IN URINE
[2019-09-21 11:37] VITALS: BP 144/73
[2019-09-21 15:39] VITALS: BP 144/74
--- NOTE | 2019-09-21 16:48 | NUR ---
Rehab Note- Received a call from Kristy with [facility] stating that the patient has approved for an acute inpatient rehab stay with clinical updates due 7 days after admit. Plan for admit on 09/22/2019, Auth #[id number]. CLinical update review will by Adriano Thorpe at [phone] Ext [phone]. Spoke with PHIL Muller. Thank you for this referral! Lidia Chaudhari RN Clinical Liaison, [facility] Rehab
--- NOTE | 2019-09-21 19:26 | NUR ---
OT NOTE: PT COMPLETED BED MOB TASKS WITH MIN/MOD A. PT COMPLETED BUE AROM EXS FOR INCREASED AX TOLERANCE WITH FUNCTIONAL AX . [phone] THANK YOU, MUNIR ALBARRAN
[2019-09-21 20:00] VITALS: BP 139/72
[2019-09-22] VITALS: BP 148/80
[2019-09-22 04:00] VITALS: BP 143/78
[2019-09-22 05:12] LABS: BASOPHILS 0.3 % (0-2); EOSINOPHILS 3.3 % (0-7); HEMATOCRIT 34.1 % (36.0-48.0); HEMOGLOBIN 10.7 g/dL (12-16); IMMATURE GRANULOCYTES 0.8 % (0-5); MCH 29.7 pg (26.0-34.0); MCHC 31.4 g/dL (31.0-37.0); MCV 94.7 fL (80.0-100.0); MEAN PLATELET VOLUME 11.4 fL (7.4-10.4); MONOCYTES 6.4 % (2-11); NEUTROPHILS 75.2 % (40-80); PLATELET COUNT 188 10x3/uL (130-400); RDW 14.4 % (11.5-14.5); WBC 6.6 10x3/uL (4.8-10.8)
[2019-09-22 05:35] LABS: ALBUMIN 2.7 g/dL (3.4-5.0); ANION GAP 13.6 mmol/L (8-16); BILIRUBIN - TOTAL 0.57 mg/dL (0.2-1.3); CALCIUM 8.7 mg/dL (8.5-10.1); CARBON DIOXIDE 25.2 mmol/L (21.0-32.0); CREATININE - SERUM 3.4 mg/dL (0.6-1.3); POTASSIUM - SERUM 3.8 mmol/L (3.5-5.1); PROTEIN - SERUM 6.6 g/dL (6.4-8.2)
--- NOTE | 2019-09-22 06:01 | NUR ---
BLOOD SUGAR 169. PER SLIDING SCALE, SHE WOULD GET 8 UNITS OF HUMALOG. SHE STATES SHE IS AFRAID THAT IS TOO MUCH AND HER SUGAR WILL DROP. SHE SAID SHE WOULD BE OK WITH 4 UNITS.
[2019-09-22 10:59] VITALS: BP 139/64
[2019-09-22] MEDS ORDERED: LEVOFLOXACIN500 MG PO (11:50)
--- NOTE | 2019-09-22 12:26 | MORECARE ---
CASE MANAGEMENT DISCHARGE SUMMARY PATIENT: BRI HERNANDEZ UNIT: [id number] ADM DATE: 09/13/19 AGE: 68 : 50 SEX: F ROOM/BED: D.2103 AUTHOR: LAURA,DOC PHYSICIAN: REFERRING PHYSICIAN: CRISTINO KNOTT MD DATE OF SERVICE: 09/22/19 Discharge Plan Patient Name: BRI HERNANDEZ [facility] [facility] 1950 Planned Disposition: Inpatient Rehab Anticipated Discharge Date: 09/19/19 Discharge Date: Expected LOS: 6 Initial Reviewer: [email or web address] Initial Review Date: 09/16/2019 Generated: 09/22/19 1:25 pm Comments DCP- Discharge Planning Updated by [id number]: Kamryn Bravo on 09/22/19 11:[address] INSURER HAS APPROVED 7 DAYS. PLAN TRANSFER TO ACUTE REHAB TODAY. DCP- Discharge Planning Updated by [id number]: Angel George on 09/16/19 6:[address] Patient Name: BRI HERNANDEZ Admission Status: Urgent Accout number: [id number] Admission Date: 09-13-2019 : 1950 Admission Diagnosis: Attending: CRISTINO KNOTT Current LOS: 3 Anticipated DC Date: 09-19-2019 Planned Disposition: Inpatient Rehab Primary Insurance: [facility] MEDICARE SOLUTIONS PLANNED EXTERNAL PROVIDER: [facility] INPATIENT REHAB Discharge Planning Comments: CM RECEIVED ORDE FOR NIPPV AND OXYGEN TESTING. ORDER FOR WALK TESTING FOR HOME OXYGEN RECEIVED. CM MET WITH PT IN ROOM TO DISCUSS DISCHARGE PLANNING AND NEEDS. PT REPORTS LIVING AT HOME INDEPENDENTLY WITH HER SPOUSE. PT HAS BEDSIDE COMMODE, HOME OXYGEN FROM [facility], ROLLING WALKER AND SHOWER CHAIR. PT HAS NO OUTSIDE SERVICES ASSISTING IN THE HOME. CM DISCUSSED AVAILABILITY OF HOME HEALTH, REHAB SERVICES AND MEDICAL EQUIPMENT. PT WANTS REHAB AT [facility] AND IF DECLINED, [facility]. PT WANTS HER NIPPV FROM [facility]. CHOICE COMPLETED. CM OBTAINED ORDER FOR INPATIENT REHAB PRESCREENING. CM FAXED REFERRAL TO [facility] FOR NIPPV, FAX [phone]. CM WAITING INPATIENT REHAB PRESCREENING FOR [facility] INPATIENT REHAB WELL INSURANCE AUTHORIZATION FOR REHAB SERVICES. CM WAITING PROCESSING AND INSURANCE APPROVAL FOR NIPPV FROM [facility]. Purchasing Specialist: Angel George DCPIA - Discharge Planning Initial Assessment Updated by [email or web address]: Angel George on 09/16/19 6:49 pm * Is the patient Alert and Oriented? Yes * How many steps to enter\exit or inside your home? NONE * PCP DR. RHOADES * Pharmacy [facility] * Preadmission Environment Home with Family * ADLs Independent * Equipment Bedside Commode Oxygen Rolling Walker Wheelchair * Other Equipment HOME OXYGEN ONLY [facility] * List name and contact numbers for known caregivers / representatives who currently or will assist patient after discharge: KRISTIE HERNANDEZ, SPOUSE, * Verbal permission to speak to the caregivers and representatives has been obtained from the patient. N/A * Community resources currently utilized None * Please name any agencies selected above. NONE * Additional services required to return to the preadmission environment? No * Can the patient safely return to the preadmission environment? Yes * Has this patient been hospitalized within the prior 30 days at any hospital? No Coverage Notice Reviewer: [id number] - Angel George Notice Issued Date-Time: 09/16/2019 15:55 Notice Type: Patient Choice Letter Notice Delivered To: Patient Relationship to Patient: Dairy Products Maker Name: Delivery Method: HAND - Hand Delivered Faye Days: Prior Verbal Notification: Recipient Understood Notice: Yes Recipient Signature: Yes Med Rec Note Co-signed by Attending: Coverage Notice Comment: JOSE E FOR DME 1-[facility] INPT REHAB 2-[facility] Last DP export: 09/16/19 6:07 p Patient Name: BRI HERNANDEZ Page [id number] at 1226 All edits/amendments must be made on the electronic document DICTATION DATE: 09/22/19 1225 WATER REGULATOR AND VALVE REPAIRER: IRAM 09/22/19 1225 RPT#: [id number] [place] DATE: STATUS: ADM IN [facility] [address] [place] [address] END OF REPORT
--- NOTE | 2019-09-22 17:46 | NUR ---
OT NOTE: PT COMPLETED SUPINE TO SIT WITH SBA. PT COMPLETED EOB SITTING BALANCE WITH SBA. PT COMPLETED BUE AROM EXS AT EOB WITH SBA. PT COMPLETED GROOMING TASKS WITH SET UP . [phone] THANK CONY SWAIN COTA
[2019-09-22 20:00] VITALS: BP 144/77
[2019-09-23] VITALS: BP 137/71
[2019-09-23 04:00] VITALS: BP 141/74
[2019-09-23 04:20] LABS: BASOPHILS 0.4 % (0-2); EOSINOPHILS 2.6 % (0-7); HEMATOCRIT 33.9 % (36.0-48.0); HEMOGLOBIN 10.7 g/dL (12-16); IMMATURE GRANULOCYTES 0.5 % (0-5); LYMPHOCYTES 15.6 % (15-50); MCH 30.1 pg (26.0-34.0); MCHC 31.6 g/dL (31.0-37.0); MCV 95.2 fL (80.0-100.0); MEAN PLATELET VOLUME 11.4 fL (7.4-10.4); MONOCYTES 6.8 % (2-11); NEUTROPHILS 74.1 % (40-80); PLATELET COUNT 187 10x3/uL (130-400); RBC 3.56 10x6/uL (4.00-5.40); RDW 14.2 % (11.5-14.5); WBC 5.7 10x3/uL (4.8-10.8)
[2019-09-23 04:44] LABS: ALBUMIN 2.5 g/dL (3.4-5.0); ANION GAP 14.3 mmol/L (8-16); BILIRUBIN - TOTAL 0.66 mg/dL (0.2-1.3); CALCIUM 8.8 mg/dL (8.5-10.1); CARBON DIOXIDE 24.7 mmol/L (21.0-32.0); CREATININE - SERUM 3.4 mg/dL (0.6-1.3); PROTEIN - SERUM 6.5 g/dL (6.4-8.2)
[2019-09-23 10:03] VITALS: BP 113/82; BP 151/72
--- NOTE | 2019-09-23 13:11 | NUR ---
PT NOT WANTING INFO REGARDING SOS TOBACCO LINE STATED ON ADMISSION.
--- NOTE | 2019-09-23 18:20 | MORECARE ---
CASE MANAGEMENT DISCHARGE SUMMARY PATIENT: BRI HERNANDEZ UNIT: [id number] ADM DATE: 09/13/19 AGE: 68 : 50 SEX: F ROOM/BED: D.2103 AUTHOR: LAURA,DOC PHYSICIAN: REFERRING PHYSICIAN: CRISTINO KNOTT MD DATE OF SERVICE: 09/23/19 Discharge Plan Patient Name: [facility]RI [facility]DE[facility] [facility] 1950 Planned Disposition: Inpatient Rehab Anticipated Discharge Date: 09/19/19 Discharge Date: 09/23/2019 Expected LOS: 6 Initial Reviewer: [email or web address] Initial Review Date: 09/16/2019 Generated: 09/23/19 7:19 pm Comments DCP- Discharge Planning Updated by [email or web address]: Kamryn Bravo on 09/22/19 11:[address] INSURER HAS APPROVED 7 DAYS. PLAN TRANSFER TO ACUTE REHAB TODAY. DCP- Discharge Planning Updated by [id number]: Angel George on 09/16/19 6:[address] Patient Name: BRI HERNANDEZ Admission Status: Urgent Accout number: [id number] Admission Date: 09-13-2019 : 1950 Admission Diagnosis: Attending: CRISTINO KNOTT Current LOS: 3 Anticipated DC Date: 09-19-2019 Planned Disposition: Inpatient Rehab Primary Insurance: [facility] MEDICARE SOLUTIONS PLANNED EXTERNAL PROVIDER: [facility] INPATIENT REHAB Discharge Planning Comments: CM RECEIVED ORDE FOR NIPPV AND OXYGEN TESTING. ORDER FOR WALK TESTING FOR HOME OXYGEN RECEIVED. CM MET WITH PT IN ROOM TO DISCUSS DISCHARGE PLANNING AND NEEDS. PT REPORTS LIVING AT HOME INDEPENDENTLY WITH HER SPOUSE. PT HAS BEDSIDE COMMODE, HOME OXYGEN FROM [facility], [place], ROLLING WALKER AND SHOWER CHAIR. PT HAS NO OUTSIDE SERVICES ASSISTING IN THE HOME. CM DISCUSSED AVAILABILITY OF HOME HEALTH, REHAB SERVICES AND MEDICAL EQUIPMENT. PT WANTS REHAB AT [facility] AND IF DECLINED, [facility]. PT WANTS HER NIPPV FROM [facility] [place]. CHOICE COMPLETED. CM OBTAINED ORDER FOR INPATIENT REHAB PRESCREENING. CM FAXED REFERRAL TO [facility] [place] FOR NIPPV, FAX [phone]. CM WAITING INPATIENT REHAB PRESCREENING FOR [facility] INPATIENT REHAB WELL INSURANCE AUTHORIZATION FOR REHAB SERVICES. CM WAITING PROCESSING AND INSURANCE APPROVAL FOR NIPPV FROM [facility] [place]. Computer Programmer Chief: Angel George DCPIA - Discharge Planning Initial Assessment Updated by [id number]: Angel George on 09/16/19 6:49 pm * Is the patient Alert and Oriented? Yes * How many steps to enter\exit or inside your home? NONE * PCP DR. RHOADES * Pharmacy [facility] * Preadmission Environment Home with Family * ADLs Independent * Equipment Bedside Commode Oxygen Rolling Walker Wheelchair * Other Equipment HOME OXYGEN ONLY [place] * List name and contact numbers for known caregivers / representatives who currently or will assist patient after discharge: KRISTIE HERNANDEZ, SPOUSE, * Verbal permission to speak to the caregivers and representatives has been obtained from the patient. N/A * Community resources currently utilized None * Please name any agencies selected above. NONE * Additional services required to return to the preadmission environment? No * Can the patient safely return to the preadmission environment? Yes * Has this patient been hospitalized within the prior 30 days at any hospital? No Coverage Notice Reviewer: [id number] - Angel George Notice Issued Date-Time: 09/16/2019 15:55 Notice Type: Patient Choice Letter Notice Delivered To: Patient Relationship to Patient: Lead Web Developer Name: Delivery Method: HAND - Hand Delivered Faye Days: Prior Verbal Notification: Recipient Understood Notice: Yes Recipient Signature: Yes Med Rec Note Co-signed by Attending: Coverage Notice Comment: JOSE E FOR DME 1-[facility] 2-[facility] Reviewer: [id number] Breanna Aldridge Notice Issued Date-Time: 09/23/2019 12:28 Notice Type: IM Discharge Notice Notice Delivered To: Patient Relationship to Patient: Lead Web Developer Name: Delivery Method: HAND - Hand Delivered Faye Days: Prior Verbal Notification: Recipient Understood Notice: Yes Recipient Signature: Yes Med Rec Note Co-signed by Attending: Coverage Notice Comment: Last DP export: 09/22/19 11:26 a Patient Name: BRI HERNANDEZ Page [id number] at 1820 All edits/amendments must be made on the electronic document DICTATION DATE: 09/23/191818 GANG BORE OPERATOR: IRAM 09/23/191818 RPT#: [id number] DC DATE:09/23/19 STATUS: DIS IN [facility] [address] [place] [address] END OF REPORT
--- NOTE | 2019-09-25 14:00 | NUR ---
OT NOTE: (DOS 09/23/19) PT COMPLETED SUPINE TO SIT WITH CGA/MIN A. PT COMPLETED SIT TO STAND WITH MIN/MOD USING RW FOR BALANCE ON LE. PT COMPLETED BUE AROM EXS AT EOB. 3--828 THANK YOU,MUNIR ALBARRAN
== END 2019-09-23 14:12 | DRG 637 ==
LOC: D.M2 15:54
PROVIDERS: Internal Medicine; ADMIT Family Medicine; ATTEND Family Medicine
DX: E11.628 Type 2 diabetes mellitus with other skin complications (principal); G93.41 Metabolic encephalopathy; L03.115 Cellulitis of right lower limb; I13.2 Hypertensive heart and chronic kidney disease with heart failure and with stage 5 chronic kidney disease, or end stage renal disease; I50.22 Chronic systolic (congestive) heart failure; F17.213 Nicotine dependence, cigarettes, with withdrawal; E87.1 Hypo-osmolality and hyponatremia; J44.1 Chronic obstructive pulmonary disease with (acute) exacerbation; N39.0 Urinary tract infection, site not specified; N18.6 End stage renal disease; E11.65 Type 2 diabetes mellitus with hyperglycemia; E11.51 Type 2 diabetes mellitus with diabetic peripheral angiopathy without gangrene; E11.22 Type 2 diabetes mellitus with diabetic chronic kidney disease; I25.10 Atherosclerotic heart disease of native coronary artery without angina pectoris; I08.1 Rheumatic disorders of both mitral and tricuspid valves; E78.5 Hyperlipidemia, unspecified; B96.89 Other specified bacterial agents as the cause of diseases classified elsewhere

== ENCOUNTER 2019-09-23 13:23 | Inpatient (IN) | payer MEDICARE ==
[~2019-09-23] VITALS: Ht 165.1 cm; Wt 77.1 kg
[~2019-09-23 13:23] MED LIST changes: +BUMEX2 MG PO; +INSULIN LISPRO; +LASIX80 MG PO; +LEVOFLOXACIN500 MG PO
--- NOTE | 2019-09-23 19:05 | NUR ---
BEDSIDE REPORT COMPLETE. PT SITTING UP IN W/C. ALERT AND ORIENTED X4. DENIES ANY NEEDS OR PAIN. NO SIGNS OF ACUTE DISTRESS NOTED. OLD LT AKA. LT UPPER ARM FISTULA THRILL AND BRUIT NOTED. CL IN REACH. RT LEG TIGHT AND SCALY. OPEN WOUNDS X2 WEEPING WILL CLEAN AND APPLY DRESSING. CL IN REACH. FALL PRECAUTIONS IN PLACE
--- NOTE | 2019-09-23 23:08 | NUR ---
PT LYING IN BED ON LEFT SIDE EYES CLOSED RESTING, RR EVEN AND UNLABORED. CL IN REACH
[2019-09-24 00:09] VITALS: BP 142/81; BMI 28.3
[2019-09-24 00:36] VITALS: BP 142/81
--- NOTE | 2019-09-24 03:15 | NUR ---
ASSISTED PT TO RESTROOM WITH MOD ASSIST. PT BACK IN BED, HOB 15 DEGREES. DENIES ANY NEEDS OR PAIN. CL IN REACH
[2019-09-24 07:15] LABS: BASOPHILS 0.5 % (0-2); EOSINOPHILS 2.8 % (0-7); HEMATOCRIT 34.1 % (36.0-48.0); HEMOGLOBIN 10.9 g/dL (12-16); IMMATURE GRANULOCYTES 0.3 % (0-5); LYMPHOCYTES 15.7 % (15-50); MCH 30.4 pg (26.0-34.0); MCV 95.3 fL (80.0-100.0); MONOCYTES 7.9 % (2-11); NEUTROPHILS 72.8 % (40-80); PLATELET COUNT 197 10x3/uL (130-400); RBC 3.58 10x6/uL (4.00-5.40); RDW 14.4 % (11.5-14.5); WBC 6.2 10x3/uL (4.8-10.8)
[2019-09-24 07:16] LABS: ANION GAP 14.4 mmol/L (8-16); CALCIUM 8.8 mg/dL (8.5-10.1); CARBON DIOXIDE 23.6 mmol/L (21.0-32.0); CREATININE - SERUM 3.4 mg/dL (0.6-1.3)
[2019-09-24 08:00] VITALS: BP 147/72
--- NOTE | 2019-09-24 09:25 | NUR ---
PHYSICAL THERAPIST HAS PATIENT OUT IN THE HALLWAY. PATIENT YELLING AT AMPARO, PHYSICAL THERAPIST, TELLING HIM THAT HE CAN NOT TELL HERE WHAT TO DO. AMPARO STATED THAT HE IS JUST TRYING TO KEEP HER SAFE AND THAT IS SHE DOES NOT WANT TO PARTICAPATE IN THERAPY HE WILL HELP HE BACK TO BED. THIS NURSE INTERVENED. TALKED TO PATIENT IN REGARDS TO THE NEED FOR THERAPY. PATIENT AGREED TO THERAPY AFTER SITTING UP IN HALLWAY FOR ABOUT TEN MINUTES.
--- NOTE | 2019-09-24 10:14 | NUR ---
PATIENT IS ALERT/ORIENT. REAMAINS IN CONTACT ISOLATION FOR ESVL IN CONTACT ISOLATION. SITTING UP IN A WHEELCHAIR AFTER WORKING WITH PHYSICAL THERAPIST. CALL LIGHT WITHIN REACH. VOICES NO NEEDS AT THIS TIME. WILL CONTINUE WITH PLAN OF CARE
[2019-09-24 11:42] VITALS: Ht 165.1 cm; Wt 77.1 kg
--- NOTE | 2019-09-24 13:53 | NUR ---
PATIENT DOWN IN REHAB ROOM. WORKING WITH PHYSICAL THERAPIST. DENIES ANY PAIN/DISC AT THIS TIME.
--- NOTE | 2019-09-24 15:56 | NUR ---
PAXTON MCDERMOTT APN. CALLED IN REGARDS OF PATIENT NOT HAVING A BOWEL MOVEMENT IN OVER A WEEK. PATIENT WAS ADMITTED TO REHAB UNIT LATE YESTERDAY. NEW ORDER FOR [facility]ONIA.
--- NOTE | 2019-09-24 18:58 | NUR ---
BEDSIDE REPORT COMPLETE. PT SITTING UP IN W/C ALERT AND ORIENTED X4. DENIES ANY NEEDS. C/O MILD DISCOMFORT LOWER BACK REQUEST TYLENOL INSTEAD OF NORCO WILL GET ORDER FOR TYLENOL. CL IN REACH. FALL PRECAUTIONS IN PLACE. WILL CONTINUE TO MONITOR
[2019-09-24 21:00] VITALS: BP 133/73
--- NOTE | 2019-09-25 00:34 | NUR ---
PT LYING IN BED EYES CLOSED RESTING. RR EVEN AND UNLABORED. CL IN REACH
--- NOTE | 2019-09-25 04:25 | NUR ---
PT STATES SHE IS FEELING NAUSEATED CHECKED FSBS 77, PT REPORTS WHEN BS GET BELOW 90'S IT MAKES HER FEEL NAUSEA. PT REQUESTED VANILLA WAFERS AND MILK.
--- NOTE | 2019-09-25 05:10 | NUR ---
PT REPORTS SHE IS FEELING BETTER. ASSISTED TO RESTROOM AND BACK TO BED WITH MOD ASSIST. CL IN REACH
[2019-09-25 08:00] VITALS: BP 134/69
--- NOTE | 2019-09-25 10:30 | NUR ---
PATIENT REMAINS IN CONTACT ISOLATION. SITTING UP IN BED WATCHING TV. CALL LIGHT WITHIN REACH. VOICES NO NEEDS AT THIS TIME. WILL CONTINUE WITH PLAN OF CARE
--- NOTE | 2019-09-25 18:45 | NUR ---
BEDSIDE REPORT COMPLETE. PT SITTING UP IN W/C WATCHING TV. DENIES ANY NEEDS OR PAIN. RR EVEN AND UNLABORED. CL IN REACH. FALL PRECAUTIONS IN PLACE. WILL CONTINUE TO MONITOR
[2019-09-25 20:00] VITALS: BP 133/70
--- NOTE | 2019-09-26 00:07 | NUR ---
PT LYING IN BED ON LEFT SIDE EYES CLOSED RESTING. RR EVEN AND UNLABORED. CL IN REACH
--- NOTE | 2019-09-26 03:21 | NUR ---
PT LYING IN BED ON RIGHT SIDE EYES CLOSED RESTING. NO SIGNS OF ACUTE DISTRESS NOTED. CL IN REACH
--- NOTE | 2019-09-26 06:15 | NUR ---
RT FOREARM SALINE LOCK REMOVED WITH CATH TIP INTACT. PRESSURE HELD AND BANDAID APPLIED.
[2019-09-26 06:43] LABS: BASOPHILS 0.4 % (0-2); EOSINOPHILS 1.8 % (0-7); HEMATOCRIT 31.9 % (36.0-48.0); HEMOGLOBIN 10.4 g/dL (12-16); IMMATURE GRANULOCYTES 0.2 % (0-5); LYMPHOCYTES 24.8 % (15-50); MCH 30.4 pg (26.0-34.0); MCHC 32.6 g/dL (31.0-37.0); MEAN PLATELET VOLUME 11.5 fL (7.4-10.4); NEUTROPHILS 61.8 % (40-80); RBC 3.42 10x6/uL (4.00-5.40); RDW 14.4 % (11.5-14.5); WBC 5.4 10x3/uL (4.8-10.8)
[2019-09-26 06:50] LABS: ANION GAP 14.5 mmol/L (8-16); CALCIUM 8.7 mg/dL (8.5-10.1); CARBON DIOXIDE 24.1 mmol/L (21.0-32.0); CREATININE - SERUM 3.6 mg/dL (0.6-1.3); MCV 93.3 fL (80.0-100.0); PLATELET COUNT 247 10x3/uL (130-400); POTASSIUM - SERUM 3.6 mmol/L (3.5-5.1)
--- NOTE | 2019-09-26 07:08 | NUR ---
POSITIONED ON BACK WITH EYES CLOSED AND RESP EVEN AND UNLAOBRED. NO APPARENT PAIN OR PROBLEMS. SIDERAILS UP X 2, BED IN LOW LOCKED POSITION AND CALL LIGHT WITHIN REACH.
[2019-09-26 09:48] VITALS: BP 142/72
--- NOTE | 2019-09-26 14:23 | NUR ---
PATIENT ADMITTED TO REHAB FROM ACUTE FLOOR. HER PCP IS DR. RHOADES. DME AT HOME IS BEDSIDE COMMODE, WALKER, WHEELCHAIR SHOWER CHAIR AND O2 FROM [facility]. DISCHARGE PLANS ARE FOR HER TO RETURN HOME. WILL CONTINUE TO FOLLOW WITH PATIENT.
--- NOTE | 2019-09-26 16:47 | RHP ---
PATIENT: BRI HERNANDEZ MEDICAL RECORD: [id number] ACCOUNT: [id number] LOCATION:[facility] D.1110 : [birth year] ADMISSION DATE: 09/23/19 REHABILITATION HISTORY AND PHYSICAL EXAMINATION POST ADMISSION PHYSICIAN EXAMINATION ADMITTING DIAGNOSIS: Uremic myopathy. HISTORY OF PRESENT ILLNESS: The patient was initially admitted to the [facility] from her PCP office Dr. Taylor with diabetes, hypertension, coronary artery disease, congestive heart failure, peripheral arterial disease with left yqkro-vxf-agmh amputation, chronic kidney disease. She had refused dialysis in the past. Dr. Bagley has placed a left upper extremity AV fistula at some point. Her baseline creatinine is 3.5. She continues to smoke, has osteoarthritis, anxiety disorder. She was admitted with right lower extremity cellulitis. She had a decreased level of consciousness. On admission, she has received Narcan and has been receiving Buprenex for pain control. The patient has also required some DuoNeb updrafts and budesonide. She has COPD with an acute exacerbation, got a history of UTI, ESBL sensitive. She has been on contact isolation, has peripheral neuropathy. The patient continues to smoke. The patient has chronic history of shortness of breath, dyspnea on exertion, and occasional wheezing. The patient has chronic rhinitis and sinus congestion during her acute stay. She was placed on DVT and GI prophylaxis, CHF treatment and nephrology consultation. She has got stage V renal disease according to nephrology. She has had a CTA to assess her peripheral vascular disease, she needs one actually to look at her peripheral vascular disease, but the patient has stage V kidney disease and her kidneys cannot handle the dye. The patient has wound cultures that showed Pseudomonas putida sensitive to Cipro. The patient has been on Ancef and vancomycin intermittently and Levaquin. She still refuses hemodialysis at this time. She is admitted to rehab on p.o. Levaquin and nephrology will continue her vancomycin and assist in the management of this prior to hospitalization. She was living with her spouse and was completely independent with ADLs and use a rolling walker for transfers. She is now mid-to-mod assist with ADLs, max assist for transfers [id number]. She has been monitored closely for her lab values. She has medication adjustments, monitoring her pain control. She has got decreased activity tolerance, balance deficits, decreased range of motion, decreased strength, impaired mobility, dyspnea on exertion. She is a high fall risk and self-care deficits. These are barriers to her discharge home. She will require intensive inpatient therapy with PT, OT, speech therapy to get her back to her prior level of functioning. COMORBIDITIES: Include coronary artery disease, cellulitis, chronic kidney disease, COPD, diabetes, end-stage renal disease, essential hypertension, hyperglycemia, neuropathy, peripheral vascular disease, safety awareness problems. She has got peripheral neuropathy. PAST MEDICAL HISTORY: Significant for neuropathy. She has got diabetes, known coronary artery disease, hypertension, EF of approximately 15%. She has got arthritis. She has got anxiety. PAST SURGICAL HISTORY: Includes gallbladder surgery. She has had a fistula placed, . She has had pptrt-szh-pnmr amputation and a tubal ligation. ALLERGIES: PRAVACHOL. HISTORY AND PHYSICAL [id number] BRI HERNANDEZ CURRENT MEDICATIONS: Include Bumex 2 mg daily, atorvastatin 80 mg daily, Zofran 4 mg every 4 hours p.r.n., she is on Lantus 10 units subQ at bedtime, Lasix 80 mg b.i.d., Coreg 3.125 mg b.i.d. with meals. She is on a high resistant sliding scale with Humalog. She is on Shawnee 10/325 one tab every 6 hours p.r.n. and Neurontin 600 mg t.i.d. HABITS: Does have a history of tobacco use. FAMILY HISTORY: Noncontributory. SOCIAL HISTORY: The patient hopes to return back home and get back to her prior level of functioning. REVIEW OF SYSTEMS: GENERAL: Does complain of weakness and fatigue. HEENT: Denies cold, cough, or congestion. CARDIOVASCULAR: Denies any chest pain. PHYSICAL EXAMINATION: VITAL SIGNS: Stable, afebrile. GENERAL: A somewhat obese female, in no acute distress upon exam. HEENT: Normocephalic and atraumatic. Mucosa moist. NECK: Supple. No lymphadenopathy. LUNGS: Clear in upper giraldo. No wheezing, rhonchi or rales. HEART: Regular rate and rhythm. No murmurs, rubs or gallops. ABDOMEN: Soft, benign and nontender, and positive bowel sounds times 4. EXTREMITIES: She is noted to have an mwjoj-xlm-vdza amputation on the left and she does have some noted changes consistent with cellulitis on the right. NEUROLOGIC: She does have some noted weakness. LABORATORY DATA: White count is 6.2, H&H of 10.9 and 34.1 and platelet count is 197. Her sodium is 135, potassium 4.0, BUN and creatinine of 65 and 3.4 and blood sugar is noted to be 125. ASSESSMENT: This is a 68-year-old female patient admitted to rehab with a working diagnosis of uremic myopathy. The patient has potential to make improvement. We instituted the following multidisciplinary therapies include, but not limited to physical, occupational, respiratory, speech, nutritional services, prosthetics and orthotics. Given her complex medical condition and risk for more complications, rehabilitation services cannot be provided at a low level of care such as snf facility. PLAN: 1. Admit to [facility] for intensive inpatient therapy to include the following disciplines; A. Physical therapy to improve gait, all transfer skills and bed mobility to a modified independent level. B. Occupational therapy to a modified independent level. C. Case management to assist with discharge planning and placement options. D. Nutrition to assist with nutritional needs. E. Rehabilitation nursing to assist in monitoring the patient's underlying medical condition and to assist with any type of bowel or bladder management. 2. The patient's current medication and medical care will be continued. 3. The patient will be placed on standard fall precautions. 4. We will watch her blood sugars closely and treat appropriately. HISTORY AND PHYSICAL [id number] BRI HERNANDEZ 5. We will see again in the a.m. either on Thursday or Thursday. TRANSINT:[id number] Voice Confirmation ID: [id number] DOCUMENT ID: [id number] BISMARK notes whether there has been none or any medical/functional change since admission: - No change since the PAS BISMARK attests patient continues to be appropriate for IRF: - Remains appropriate for the [facility] MD at 1647 CC: [id number] DICTATION DATE: 09/24/1959 RAIL TRACK MAINTAINER: 09/24/1955 ADM IN [place] [id number] [place] [id number]
--- NOTE | 2019-09-26 19:15 | NUR ---
GREETED PATIENTS AND INTRODUCED MYSELF HER NURSE. PATIENT IS RESTING IN BED AT THIS TIME. RESPIRATIONS EVEN. NO S/S OF DISTRESS. CALL LIGHT IN REACH. BEDSIDE SHIFT REPORT COMPLETE FROM OFF GOING NURSE.
[2019-09-26 20:41] VITALS: BP 165/60
--- NOTE | 2019-09-27 02:24 | NUR ---
PT. RESTING QUIETLY WITH EYES CLOSED. RESPIRATIONS EVEN. NO S/S OF DISTRESS. CALL LIGHT IN REACH.
[2019-09-27 15:02] VITALS: BP 126/66
--- NOTE | 2019-09-27 18:03 | NUR ---
PT SITTING UP IN WHEELCHAIR, DENIES NEEDS. WCTM.
--- NOTE | 2019-09-27 19:25 | NUR ---
GREETED PATIENT AND INTRODUCED MYSELF HER NURSE. PATIENT IS SITTING IN WHEELCHAIR AT THIS TIME WATCHING TV. RESPIRATIONS EVEN. NO S/S OF DISTRESS. DENIES ANY NEEDS AT THIS TIME. CALL LIGHT IN REACH.
--- NOTE | 2019-09-27 22:15 | NUR ---
REMOVED OLD DRESSING FROM RIGHT LOWER LEG. CLEANED WOUND AND REDRESSED WITH ADAPTIC, 4X4'S AND CURLIX. PT. TOLERATED PROCEDURE. REPOSITIONED FOR COMFORT. CALL LIGHT IN REACH.
[2019-09-28 00:07] VITALS: BP 145/70
--- NOTE | 2019-09-28 01:59 | NUR ---
PT. RESTING QUIETLY WITH EYES CLOSED. RESPIRATIONS EVEN. NO S/S OF DISTRESS. CALL LIGHT IN REACH.
[2019-09-28 08:54] LABS: BASOPHILS 0.7 % (0-2); HEMATOCRIT 33.5 % (36.0-48.0); HEMOGLOBIN 10.7 g/dL (12-16); IMMATURE GRANULOCYTES 0.2 % (0-5); LYMPHOCYTES 13.6 % (15-50); MCH 30.1 pg (26.0-34.0); MCHC 31.9 g/dL (31.0-37.0); MCV 94.1 fL (80.0-100.0); MEAN PLATELET VOLUME 11.3 fL (7.4-10.4); MONOCYTES 11.9 % (2-11); NEUTROPHILS 71.6 % (40-80); PLATELET COUNT 294 10x3/uL (130-400); RBC 3.56 10x6/uL (4.00-5.40); RDW 14.5 % (11.5-14.5)
[2019-09-28 09:00] LABS: ANION GAP 12.2 mmol/L (8-16); CALCIUM 8.7 mg/dL (8.5-10.1); CARBON DIOXIDE 26.3 mmol/L (21.0-32.0); CREATININE - SERUM 3.6 mg/dL (0.6-1.3); POTASSIUM - SERUM 3.5 mmol/L (3.5-5.1)
--- NOTE | 2019-09-28 16:02 | NUR ---
Nutrition Follow-up: Diet: Renal ADA PO intake: ~72% average x last 9 meals. She reports that she has not had a BM in almost 3 weeks. She feels that her decreased appetite is 2/2 constipation. States that she is getting Linzess but that she does not feel that it is helping. She would like to receive a protein supplement. Last BM: none recorded since admit. WT: 170# (09/24/19) Meds noted: linzess, bumex, lasix, lantus, SSI Labs noted: Glu 153(H), GFR 13(L), Cr 3.6(H), BUN 72(H) Will add Suplena renal (non-HD) oral nutrition supplement for added calories. Due to her low GFR she will need a low protein oral nutrition supplement at this time. Consider liberalizing diet to Cardiac/ADA if her K and PO4 remain WNL. Consider adding/increasing bowel regimen to help with BM regularity and hopefully help increase appetite. Encouraged patient to discuss this with MD. ENCARNACION following.
--- NOTE | 2019-09-28 16:28 | NUR ---
CARE TEAM MEETING: PATIENT IS PROGRESSING IN THERAPY , TENATIVE DISCHARGE DTAE IS 10/07/2019. WILL CONTINUE TO FOLLOW WITH PATIENT.
--- NOTE | 2019-09-28 18:51 | NUR ---
GREETED PATIENT AND INTRODUCE MYSELF HER NURSE. PATIENT IS CURRENTLY SITTING IN WHEELCHAIR WATCHING TV. DENIES ANY FURTHER NEEDS AT THIS TIME. RESPIRAITONS EVEN. NO S/S OF DISTRESS. CALL LIGHT IN REACH.
[2019-09-28 21:20] VITALS: BP 129/69
--- NOTE | 2019-09-29 01:23 | NUR ---
PT. RESTING QUIETLY WITH EYES CLOSED. RESPIRATIONS EVEN. NO S/S OF DISTRESS. CALL LIGHT IN REACH.
--- NOTE | 2019-09-29 04:06 | NUR ---
PT RESTING QUIETLY WITH EYES CLOSED. RESPIRATIONS EVEN. NO S/S OF DISTRESS. CALL LIGHT IN REACH.
--- NOTE | 2019-09-29 08:06 | NUR ---
PER PT REQUEST, NEURONTIN CHANGED TO 600 MG QHS.
--- NOTE | 2019-09-29 08:10 | NUR ---
PT AM MEDS ADMINISTERD. PT DENIES NEEDS. WCTM.
[2019-09-29 09:21] VITALS: BP 128/59
--- NOTE | 2019-09-29 14:53 | NUR ---
Pt has hx of cellulitis of right lower leg. There are 2 open areas on lateral side of right lower leg. They have no depth. Recommended applying betadine soaked adaptic, covering with 4x4s and securing with kerlix. Right heel has a scab that appears to be from her shoe rubbing. It is being protected with mepilex. Wound care continues to monitor.
--- NOTE | 2019-09-29 16:18 | NUR ---
CLINICAL UPDATES FAXED TO LAURA CABRERA AT [facility] , AUTH. # [id number] WITH CONFORMATION RECIEVED. WILL CONTINUE TO FOLLOW WITH PATIENT.
--- NOTE | 2019-09-29 17:57 | NUR ---
PT SITTING UP IN WHEELCHAIR EATING DINNER, DENIES NEEDS. WCTM.
[2019-09-29 22:57] VITALS: BP 143/74
--- NOTE | 2019-09-30 00:31 | NUR ---
PT RESTING QUIETLY WITH EYES CLOSED. RESPIRATIONS EVEN. NO S/S OF DISTRESS. CALL LIGHT IN REACH.
--- NOTE | 2019-09-30 03:31 | NUR ---
PT. RESTING QUIETLY WITH EYES CLOSED. RESPIRATIONS EVEN. NO S/S OF DISTRESS. CALL LIGHT IN REACH.
[2019-09-30 07:44] LABS: BASOPHILS 0.8 % (0-2); EOSINOPHILS 2.7 % (0-7); HEMATOCRIT 31.9 % (36.0-48.0); HEMOGLOBIN 10.3 g/dL (12-16); IMMATURE GRANULOCYTES 0.2 % (0-5); LYMPHOCYTES 19.4 % (15-50); MCH 30.3 pg (26.0-34.0); MCHC 32.3 g/dL (31.0-37.0); MCV 93.8 fL (80.0-100.0); MEAN PLATELET VOLUME 11.1 fL (7.4-10.4); MONOCYTES 12.7 % (2-11); NEUTROPHILS 64.2 % (40-80); PLATELET COUNT 261 10x3/uL (130-400); RDW 14.7 % (11.5-14.5); WBC 5.2 10x3/uL (4.8-10.8)
--- NOTE | 2019-09-30 08:00 | NUR ---
PATIENT SITTING UP IN A WHEELCHAIR BY BED TO EAT BREAKFAST. REAMAINS IN CONTACT ISOLATION FOR ESVL. CALL LIGHT WITHIN REACH. VOICES NO NEEDS AT THIS TIME. WILL CONTINUE WITH PLAN OF CARE
[2019-09-30 08:09] LABS: ANION GAP 13.8 mmol/L (8-16); CALCIUM 8.4 mg/dL (8.5-10.1); CARBON DIOXIDE 24.7 mmol/L (21.0-32.0); CREATININE - SERUM 3.6 mg/dL (0.6-1.3); POTASSIUM - SERUM 3.5 mmol/L (3.5-5.1)
[2019-09-30 09:52] VITALS: BP 130/65
--- NOTE | 2019-09-30 10:15 | NUR ---
PATIENT IS IN REHAB ROOM. WORKING WITH PHYSICAL THERAPIST. DENIES ANY PAIN/DISC AT THIS TIME.
--- NOTE | 2019-09-30 14:58 | NUR ---
TWO ASST FOR TRANSFER FROM WHEELCHAIR ONTO TOILET. PATIENT UNABLE TO PULL UP OR DOWN PANTS
--- NOTE | 2019-09-30 19:38 | NUR ---
PT IS RESTING IN BED WITH EYES OPEN. ALERT AND ORIENTED X 3. DENIES ACUTE DISCOMFORT AT THIS TIME. NO NEEDS VOICED. CONTACT ISOLATION OBSERVED. SR'S ARE UP X 2 IN BED. CALL LIGHT AND BEDSIDE TABLE ARE WITHIN EASY REACH.
--- NOTE | 2019-09-30 22:00 | NUR ---
PT RESTING IN BED WITH EYES OPEN. NO NEEDS VOICED.
--- NOTE | 2019-10-01 00:01 | NUR ---
RESTING IN BED WITH EYES CLOSED.
[2019-10-01 02:18] VITALS: BP 136/63
--- NOTE | 2019-10-01 02:18 | NUR ---
I have reviewed this patient and I concur with the Shift Assessment completed by the Licensed Practical Nurse today this shift.
--- NOTE | 2019-10-01 04:52 | NUR ---
RESTING IN BED WITH EYES CLOSED.
[2019-10-01 08:00] VITALS: BP 125/41
--- NOTE | 2019-10-01 09:00 | NUR ---
PATIENT REMAINS IN CONTACT ISOLATION. ALERT/ORIENT. SITTING UP IN BED TO EAT BREAKFAST. CALL LIGHT WITHIN REACH. VOICE NO NEEDS AT THIS TIME. WILL CONTINUE WITH PLAN OF CARE
--- NOTE | 2019-10-01 11:00 | NUR ---
I have reviewed this patient and I concur with the Shift Assessment completed by the Licensed Practical Nurse today this shift.
--- NOTE | 2019-10-01 18:52 | NUR ---
GREETED PATIENT AND INTRODUCED MYSELF HER PATIENT. IS CURRENTLY SITTING IN WHEELCHAIR AT THIS TIME. RESPIRATIONS EVEN. NO S/S OF DISTRESS. DENIES ANY NEEDS AT THIS TIME. CALL LIGHT IN REACH.
[2019-10-01 20:13] VITALS: BP 141/68
--- NOTE | 2019-10-02 01:13 | NUR ---
PT. RESTING QUIETLY WITH EYES CLOSED. RESPIRATIONS EVEN. NO S/S OF DISTRESS. CALL LIGHT IN REACH.
--- NOTE | 2019-10-02 08:50 | NUR ---
PT AM MEDS ADMINISTERED. PT DENIES NEEDS. WCTM.
[2019-10-02 15:44] VITALS: BP 122/47
--- NOTE | 2019-10-02 18:00 | NUR ---
GREETED PATIENT AND INTRODUCED MYSELF HER NURSE. PATIENT IS CURRENTLY SITTING IN WHEELCHAIR AT THIS TIME WATCHING TV. RESPIRATIONS EVEN. NO S/S OF DISTRESS. DENIES ANY NEEDS AT THIS TIME. CALL LIGHT IN REACH.
--- NOTE | 2019-10-02 18:18 | NUR ---
PTSITTING UP IN WHEELCHAIR, DENIES NEEDS. WCTM.
[2019-10-02 19:41] VITALS: BP 139/62
--- NOTE | 2019-10-02 23:57 | NUR ---
PT. RESTING QUIETLY WITH EYES CLOSED. RESPIRATIONS EVEN. NO S/S OF DISTRESS. CALL LIGHT IN REACH.
--- NOTE | 2019-10-03 03:40 | NUR ---
PT RESTING QUIETLY WITH EYES CLOSED. RESPIRATIONS EVEN. NO S/S OF DISTRESS. CALL LIGHT IN REACH.
[2019-10-03 06:48] LABS: BASOPHILS 0.6 % (0-2); EOSINOPHILS 3.4 % (0-7); HEMATOCRIT 32.8 % (36.0-48.0); HEMOGLOBIN 10.5 g/dL (12-16); IMMATURE GRANULOCYTES 0.2 % (0-5); LYMPHOCYTES 22.8 % (15-50); MCH 30.2 pg (26.0-34.0); MCV 94.3 fL (80.0-100.0); MEAN PLATELET VOLUME 11.5 fL (7.4-10.4); MONOCYTES 9.9 % (2-11); NEUTROPHILS 63.1 % (40-80); PLATELET COUNT 239 10x3/uL (130-400); RBC 3.48 10x6/uL (4.00-5.40); RDW 14.8 % (11.5-14.5); WBC 4.7 10x3/uL (4.8-10.8)
[2019-10-03 08:00] VITALS: BP 132/64
--- NOTE | 2019-10-03 08:00 | NUR ---
PT RESTING IN BED WITH EYES OPEN CALL LIGHT IN REACH WILL SANG
[2019-10-03 08:42] LABS: ANION GAP 15.4 mmol/L (8-16); CALCIUM 8.3 mg/dL (8.5-10.1); CARBON DIOXIDE 25.1 mmol/L (21.0-32.0); CREATININE - SERUM 3.7 mg/dL (0.6-1.3); PHOSPHOROUS 5.4 mg/dL (2.5-4.9); POTASSIUM - SERUM 3.5 mmol/L (3.5-5.1)
[2019-10-03 08:54] LABS: % SATURATION 17 % (15-55); IRON 42 ug/dl (35-150); TOTAL IRON BIND CAPACITY 246 ug/dl (260-445); UNSAT IRON BIND CAPACITY 204 ug/dl (150-375)
--- NOTE | 2019-10-03 16:40 | NUR ---
PT RESTING IN WHEELCHAIR BESIDE OF BED CALL LIGHT IN REACH WILL MONITER
[2019-10-03 19:00] VITALS: BP 137/69
--- NOTE | 2019-10-03 19:08 | NUR ---
GREETED PATIENT AND INTRODUCED MYSELF HER NURSE. PATIENT IS LAYING IN BED RESTING AT THIS TIME. RESPIRATIONS EVEN. NO S/S OF DISTRESS. CALL LIGHT IN REACH.
--- NOTE | 2019-10-04 01:06 | NUR ---
PT RESTING QUIETLY WITH EYES CLOSED. RESPIRATIONS EVEN. NO S/S OF DISTRESS. CALL LIGHT IN REACH.
--- NOTE | 2019-10-04 03:50 | NUR ---
PT AWAKE LAYING IN BED WATCHING TV. RESPIRATIONS EVEN. NO S/S OF DISTRESS. DENIES ANY NEEDS AT THIS TIME. CALL LIGHT IN REACH.
[2019-10-04 05:52] LABS: BASOPHILS 1.1 % (0-2); EOSINOPHILS 3.8 % (0-7); HEMATOCRIT 31.6 % (36.0-48.0); HEMOGLOBIN 10.2 g/dL (12-16); IMMATURE GRANULOCYTES 0.2 % (0-5); LYMPHOCYTES 23.1 % (15-50); MCH 29.9 pg (26.0-34.0); MCHC 32.3 g/dL (31.0-37.0); MCV 92.7 fL (80.0-100.0); MEAN PLATELET VOLUME 11.1 fL (7.4-10.4); MONOCYTES 10.3 % (2-11); NEUTROPHILS 61.5 % (40-80); PLATELET COUNT 216 10x3/uL (130-400); RBC 3.41 10x6/uL (4.00-5.40); RDW 14.6 % (11.5-14.5); WBC 4.5 10x3/uL (4.8-10.8)
[2019-10-04 06:28] LABS: CALCIUM 8.6 mg/dL (8.5-10.1); CARBON DIOXIDE 23.5 mmol/L (21.0-32.0); CREATININE - SERUM 3.8 mg/dL (0.6-1.3); POTASSIUM - SERUM 3.5 mmol/L (3.5-5.1)
[2019-10-04 08:03] VITALS: BP 135/60
--- NOTE | 2019-10-04 08:20 | NUR ---
PT AM MEDS ADMINISTERED. PT SITTING UP EATING BREAKFAST. PT STATES SHE HAS A HEADACHE AND IS NAUSEOUS. WILL PROVIDE PT WITH TYLENOL AND ZOFRAN.
--- NOTE | 2019-10-04 14:46 | NUR ---
Nutrition Follow-up: Diet: Renal ADA + Suplena TID PO intake: ~63% average x last 12 meals; She reports that her appetite is "not good." States that last BM was last Monday 08/28 getting laxative but states that "they had to stop the meds" because it was giving her diarrhea. She states that she is drinking the Suplena being sent on meal trays. Last BM: 10/03/19 (per nursing flowsheets). WT: 170# (09/24/19), no new WT Meds noted: bumex, lasix, lantus, SSI Labs noted: Na 135(L), BUN 68(H), Cr 3.8(H), GFR 12(L), POC Glu 238(H), PO4 5.4(H) Skin: blisters/reddened area to RLL. Left AKA amputation scar healed. Recommend continue current diet for low phos diet. Continue Suplena oral nutrition supplement. RD following.
--- NOTE | 2019-10-04 18:05 | NUR ---
PT SITTING UP IN WHEELCHAIR EATING DINNER, DENIES NEEDS. WCTM.
--- NOTE | 2019-10-04 18:52 | NUR ---
BEDSIDE REPORT COMPLETE. PT SITTING UP IN W/C WATCHING TV. ALERT AND ORIENTED X4. DENIES ANY NEEDS OR PAIN. RLE DRESSING C/D/I. CL AND WATER WITHIN REACH. FALL PRECAUTIONS IN PLACE. WILL CONTINUE TO MONITOR
[2019-10-04 20:16] VITALS: BP 135/62
--- NOTE | 2019-10-04 23:16 | NUR ---
PT LYING IN BED ON LEFT SIDE EYES CLOSED RESTING. RR EVEN AND UNLABORED. CL IN REACH
--- NOTE | 2019-10-05 01:18 | NUR ---
PT LYING IN BED ON RIGHT SIDE EYES CLOSED RESTING. RR EVEN AND UNLABORED. CL IN REACH
--- NOTE | 2019-10-05 03:00 | NUR ---
ASSISTED PT TO RESTROOM WITH MOD ASSIST. PT STILL CONTINUES TO C/O BEING NAUSEATED AND SICK TO HER STOMACH. OFFERED ZOFRAN PT DECLINED.
--- NOTE | 2019-10-05 04:25 | NUR ---
PT LYING IN BED SUPINE EYES CLOSED RESTING. CL IN REACH
--- NOTE | 2019-10-05 06:15 | NUR ---
REMOVED OLD DRESSING RLE, NO DRAINAGE NOTED. CLEANSED SITE WITH WOUND CLEANSER PATTED DRY WITH 4X4. APPLIED ADAPTIC WITH BETADINE, COVERED WITH 4X4 AND WRAPPED WITH KERLIX. TIME, DATE, AND INITIALED. PT TOLERATED WELL
[2019-10-05 07:52] LABS: BASOPHILS 0.6 % (0-2); HEMATOCRIT 32.3 % (36.0-48.0); HEMOGLOBIN 10.4 g/dL (12-16); IMMATURE GRANULOCYTES 0.2 % (0-5); LYMPHOCYTES 19.1 % (15-50); MCHC 32.2 g/dL (31.0-37.0); MCV 93.1 fL (80.0-100.0); MEAN PLATELET VOLUME 11.3 fL (7.4-10.4); MONOCYTES 11.3 % (2-11); NEUTROPHILS 65.8 % (40-80); PLATELET COUNT 215 10x3/uL (130-400); RBC 3.47 10x6/uL (4.00-5.40); RDW 14.5 % (11.5-14.5)
[2019-10-05 08:09] LABS: ANION GAP 15.8 mmol/L (8-16); CALCIUM 8.8 mg/dL (8.5-10.1); CARBON DIOXIDE 25.6 mmol/L (21.0-32.0); CREATININE - SERUM 3.9 mg/dL (0.6-1.3); POTASSIUM - SERUM 3.4 mmol/L (3.5-5.1)
--- NOTE | 2019-10-05 10:30 | NUR ---
CONTACT ISOLATION ESBL. NO C/O PAIN. RESP EVEN AND UNLABORED. ASSISTED TO WC. CL IN REACH.
--- NOTE | 2019-10-05 14:24 | NUR ---
CARE TEAM MEETING: PATIENT IS DOING WELL IN THERAPY. HER TENATIVE DISCHARGE DATE 09/08/19. SHE HAS CHOSEN [employer]. WILL CONTINUE TO FOLLOW WITH PATIENT.
--- NOTE | 2019-10-05 18:47 | NUR ---
BEDSIDE REPORT COMPLETE. PT SITTING UP IN W/C WATCHING TV. ALERT AND ORIENTED X4. DENIES ANY NEEDS OR PAIN. RLE DRESSING C/D/I. NO SIGNS OF ACUTE DISTRESS NOTED. CL IN REACH. FALL PRECAUTIONS IN PLACE. WILL CONTINUE TO MONITOR
[2019-10-05 21:00] VITALS: BP 135/62
--- NOTE | 2019-10-06 01:06 | NUR ---
PT LYING IN BED ON LEFT SIDE EYES CLOSED RESTING. RR EVEN AND UNLABORED. CL IN REACH
--- NOTE | 2019-10-06 04:34 | NUR ---
PT LYING IN BED ON RIGHT SIDE EYES CLOSED RESTING. RR EVEN AND UNLABORED. CL IN REACH
--- NOTE | 2019-10-06 05:15 | NUR ---
REMOVED OLD DRESSING FROM RLE NO DRAINAGE OR EXUDATE NOTED. CLEANSED EXTREMITY WITH WOUND CLEANSER AND PATTED DRY WITH 4X4. APPLIED ADAPTIC WITH BETADINE, 4X4 AND COVERED WITH KERLIX. APPLIED LOTION TO RIGHT FOOT D/T DRY AND SCALY. CLEAN SKID SOCK WAS PUT ON. PT RESTING COMFORTABLY. CL IN REACH
[2019-10-06 06:25] LABS: BASOPHILS 0.7 % (0-2); EOSINOPHILS 3.7 % (0-7); HEMATOCRIT 33.1 % (36.0-48.0); HEMOGLOBIN 10.6 g/dL (12-16); IMMATURE GRANULOCYTES 0.4 % (0-5); LYMPHOCYTES 15.8 % (15-50); MCH 29.7 pg (26.0-34.0); MCV 92.7 fL (80.0-100.0); MEAN PLATELET VOLUME 11.4 fL (7.4-10.4); MONOCYTES 11.5 % (2-11); NEUTROPHILS 67.9 % (40-80); PLATELET COUNT 220 10x3/uL (130-400); RBC 3.57 10x6/uL (4.00-5.40); RDW 14.4 % (11.5-14.5); WBC 5.4 10x3/uL (4.8-10.8)
[2019-10-06 06:47] LABS: ANION GAP 13.7 mmol/L (8-16); CALCIUM 8.8 mg/dL (8.5-10.1); CARBON DIOXIDE 25.9 mmol/L (21.0-32.0); POTASSIUM - SERUM 3.6 mmol/L (3.5-5.1)
[2019-10-06 07:37] VITALS: BP 129/62
--- NOTE | 2019-10-06 07:55 | NUR ---
PATIENT CONTINUES IN CONTACT ISOLATION. ALERT/ORIENT. SITTING UP IN WHEELCHAIR TO EAT BREAKFAST. CALL LIGHT WITHIN REACH. VOICES NO NEEDS. WILL CONTINUE WITH PLAN OF CARE
--- OUTSIDE RECORDS SUMMARY | 2019-10-06 10:45 | XMS Report ---
Demographics + + + | Address | [address] [place] [address] | | | [place] [phone] | + + + | Home Phone | [phone] | + + + | Preferred Language | Unknown | + + + | Marital Status | | + + + | Spiritism Affiliation | NO PREFERENCE | + + + | Race | White | + + + | Ethnic Group | Not or | + + + Author + + + | Author | [facility] | + + + | Organization | [facility] | + + + | Address | Unknown | + + + | Phone | Unavailable | + + + Support + + + + + | Name | Relationship | Address | Phone | + + + + + | KRISTIE BEAN | Next Of Jony | [place] | [phone] | | | | [place] | | | | | [phone] | | + + + + + | SMITH BEAN | Next Of Jony | [place] | [phone] | + + + + + Care Team Providers + + + + | Care State Game Protector Name | Role | Phone | + + + + Unavailable | Unavailable | + + + + Unavailable | Unavailable | + + + + Unavailable | Unavailable | + + + + Unavailable | Unavailable | + + + + Unavailable | Unavailable | + + + + Unavailable | Unavailable | + + + + Unavailable | Unavailable | + + + + Unavailable | Unavailable | + + + + Unavailable | Unavailable | + + + + Unavailable | Unavailable | + + + + Unavailable | Unavailable | + + + + Unavailable | Unavailable | + + + + Unavailable | Unavailable | + + + + Unavailable | Unavailable | + + + + Unavailable | Unavailable | + + + + Unavailable | Unavailable | + + + + Unavailable | Unavailable | + + + + Unavailable | Unavailable | + + + + Unavailable | Unavailable | + + + + Unavailable | Unavailable | + + + + Unavailable | Unavailable | + + + + Unavailable | Unavailable | + + + + Unavailable | Unavailable | + + + + Unavailable | Unavailable | + + + + Unavailable | Unavailable | + + + + Unavailable | Unavailable | + + + + Unavailable | Unavailable | + + + + Unavailable | Unavailable | + + + + Unavailable | Unavailable | + + + + Unavailable | Unavailable | + + + + Unavailable | Unavailable | + + + + Unavailable | Unavailable | + + + + Unavailable | Unavailable | + + + + Unavailable | Unavailable | + + + + Unavailable | Unavailable | + + + + Unavailable | Unavailable | + + + + Unavailable | Unavailable | + + + + Unavailable | Unavailable | + + + + Unavailable | Unavailable | + + + + Unavailable | Unavailable | + + + + Unavailable | Unavailable | + + + + Unavailable | Unavailable | + + + + Unavailable | Unavailable | + + + + Unavailable | Unavailable | + + + + Unavailable | Unavailable | + + + + Unavailable | Unavailable | + + + + Unavailable | Unavailable | + + + + Unavailable | Unavailable | + + + + Unavailable | Unavailable | + + + + Unavailable | Unavailable | + + + + Unavailable | Unavailable | + + + + Unavailable | Unavailable | + + + + Unavailable | Unavailable | + + + + Unavailable | Unavailable | + + + + Unavailable | Unavailable | + + + + Unavailable | Unavailable | + + + + Unavailable | Unavailable | + + + + Unavailable | Unavailable | + + + + Unavailable | Unavailable | + + + + Unavailable | Unavailable | + + + + Unavailable | Unavailable | + + + + Unavailable | Unavailable | + + + + Unavailable | Unavailable | + + + + Unavailable | Unavailable | + + + + Unavailable | Unavailable | + + + + Unavailable | Unavailable | + + + + Unavailable | Unavailable | + + + + Unavailable | Unavailable | + + + + Unavailable | Unavailable | + + + + Unavailable | Unavailable | + + + + Unavailable | Unavailable | + + + + Unavailable | Unavailable | + + + + Unavailable | Unavailable | + + + + Unavailable | Unavailable | + + + + Unavailable | Unavailable | + + + + Unavailable | Unavailable | + + + + Unavailable | Unavailable | + + + + Unavailable | Unavailable | + + + + Unavailable | Unavailable | + + + + Unavailable | Unavailable | + + + + Unavailable | Unavailable | + + + + Unavailable | Unavailable | + + + + Unavailable | Unavailable | + + + + Unavailable | Unavailable | + + + + Unavailable | Unavailable | + + + + Unavailable | Unavailable | + + + + Unavailable | Unavailable | + + + + Unavailable | Unavailable | + + + + Unavailable | Unavailable | + + + + Unavailable | Unavailable | + + + + Unavailable | Unavailable | + + + + Unavailable | Unavailable | + + + + Unavailable | Unavailable | + + + + Unavailable | Unavailable | + + + + Unavailable | Unavailable | + + + + Unavailable | Unavailable | + + + + Unavailable | Unavailable | + + + + Unavailable | Unavailable | + + + + Unavailable | Unavailable | + + + + Unavailable | Unavailable | + + + + Unavailable | Unavailable | + + + + Unavailable | Unavailable | + + + + Unavailable | Unavailable | + + + + Unavailable | Unavailable | + + + + Unavailable | Unavailable | + + + + Unavailable | Unavailable | + + + + Unavailable | Unavailable | + + + + Unavailable | Unavailable | + + + + Unavailable | Unavailable | + + + + Unavailable | Unavailable | + + + + Unavailable | Unavailable | + + + + Unavailable | Unavailable | + + + + Unavailable | Unavailable | + + + + Unavailable | Unavailable | + + + + Unavailable | Unavailable | + + + + Unavailable | Unavailable | + + + + Unavailable | Unavailable | + + + + Unavailable | Unavailable | + + + + Unavailable | Unavailable | + + + + Unavailable | Unavailable | + + + + Unavailable | Unavailable | + + + + Unavailable | Unavailable | + + + + Unavailable | Unavailable | + + + + Unavailable | Unavailable | + + + + Unavailable | Unavailable | + + + + Unavailable | Unavailable | + + + + Unavailable | Unavailable | + + + + Unavailable | Unavailable | + + + + Unavailable | Unavailable | + + + + Unavailable | Unavailable | + + + + Unavailable | Unavailable | + + + + Unavailable | Unavailable | + + + + Unavailable | Unavailable | + + + + Unavailable | Unavailable | + + + + Unavailable | Unavailable | + + + + Unavailable | Unavailable | + + + + Unavailable | Unavailable | + + + + Unavailable | Unavailable | + + + + Unavailable | Unavailable | + + + + Unavailable | Unavailable | + + + + Unavailable | Unavailable | + + + + Unavailable | Unavailable | + + + + Unavailable | Unavailable | + + + + Unavailable | Unavailable | + + + + Unavailable | Unavailable | + + + + Unavailable | Unavailable | + + + + Unavailable | Unavailable | + + + + Unavailable | Unavailable | + + + + Unavailable | Unavailable | + + + + Unavailable | Unavailable | + + + + Unavailable | Unavailable | + + + + Unavailable | Unavailable | + + + + Unavailable | Unavailable | + + + + Unavailable | Unavailable | + + + + Unavailable | Unavailable | + + + + Unavailable | Unavailable | + + + + Unavailable | Unavailable | + + + + Unavailable | Unavailable | + + + + Unavailable | Unavailable | + + + + Unavailable | Unavailable | + + + + Unavailable | Unavailable | + + + + Unavailable | Unavailable | + + + + Unavailable | Unavailable | + + + + Unavailable | Unavailable | + + + + Unavailable | Unavailable | + + + + Unavailable | Unavailable | + + + + Unavailable | Unavailable | + + + + Unavailable | Unavailable | + + + + Unavailable | Unavailable | + + + + Unavailable | Unavailable | + + + + Unavailable | Unavailable | + + + + Unavailable | Unavailable | + + + + Unavailable | Unavailable | + + + + Unavailable | Unavailable | + + + + Unavailable | Unavailable | + + + + Unavailable | Unavailable | + + + + Unavailable | Unavailable | + + + + Unavailable | Unavailable | + + + + Unavailable | Unavailable | + + + + Unavailable | Unavailable | + + + + Unavailable | Unavailable | + + + + Unavailable | Unavailable | + + + + Unavailable | Unavailable | + + + + Unavailable | Unavailable | + + + + Unavailable | Unavailable | + + + + Unavailable | Unavailable | + + + + Unavailable | Unavailable | + + + + Unavailable | Unavailable | + + + + Unavailable | Unavailable | + + + + Unavailable | Unavailable | + + + + Unavailable | Unavailable | + + + + Unavailable | Unavailable | + + + + Unavailable | Unavailable | + + + + Unavailable | Unavailable | + + + + Unavailable | Unavailable | + + + + Unavailable | Unavailable | + + + + Unavailable | Unavailable | + + + + Unavailable | Unavailable | + + + + Unavailable | Unavailable | + + + + Unavailable | Unavailable | + + + + Unavailable | Unavailable | + + + + Unavailable | Unavailable | + + + + Unavailable | Unavailable | + + + + Unavailable | Unavailable | + + + + Unavailable | Unavailable | + + + + Unavailable | Unavailable | + + + + Unavailable | Unavailable | + + + + Unavailable | Unavailable | + + + + Unavailable | Unavailable | + + + + Unavailable | Unavailable | + + + + Unavailable | Unavailable | + + + + Unavailable | Unavailable | + + + + Unavailable | Unavailable | + + + + | Jono Rhoades | PP | Unavailable | + + + + | MARLENA UP | PP | Unavailable | + + + + | Emeka GERBER MD | PP | Unavailable | + + + + | Shell CLARK | PP | Unavailable | | MD | | | + + + + Allergies and Adverse Reactions + + + + +--------+ + | Type | Descripti | Substance | Reaction | Status | Data | | | on | | | | Source(s) | + + + + +--------+ + | Drug | pravastat | pravastat | . U | | National | | allergy | in | in | | | [facility] | | | | | | | Medical | | | | | | | [place] | | | | | | | ([facility]) | | | | | | | Hospital | + + + + +--------+ + | Allergy | Allergy | pravastat | . Unknown | | National | | to | to | in | | | [facility] | | substance | substance | | | | Medical | | | | | | | Center | | | | | | | ([facility]) | | | | | | | Hospital | + + + + +--------+ + +---------+ | Unknown | +---------+ + + + +---+---+ + | Drug | No Known | No Known | | | National | | allergy | Allergies | Allergies | | | [facility] | | | | | | | Medical | | | | | | | Center | | | | | | | ([facility]) | | | | | | | Hospital | + + + +---+---+ + | Drug | NO KNOWN | NO KNOWN | | | [facility] | | Class_CIM | ALLERGIES | ALLERGIES | | | [facility] | | | | | | | Hot | | | | | | | [facility] | | | | | | | [facility] | + + + +---+---+ + | Allergy | Allergy | Allergy | | | National | | to | to | to | | | [facility] | | Substance | Substance | Substance | | | Medical | | | | | | | Center | | | | | | | (NP) | | | | | | | Hospital | + + + +---+---+ + | Allergy | Allergy | Allergy | | | National | | to | to | to | | | [facility] | | Substance | Substance | Substance | | | Medical | | | | | | | Center | | | | | | | (NP) | | | | | | | Hospital | + + + +---+---+ + | Drug | NO KNOWN | NO KNOWN | | | [facility] | | Class_CIM | ALLERGIES | ALLERGIES | | | [facility] | | | | | | Clinics | + + + +---+---+ + | Drug | NO KNOWN | NO KNOWN | | | [facility] | | Class_CIM | ALLERGIES | ALLERGIES | | | [facility] | | | | | | | Clinic | | | | | | | Family | | | | | | | Medicine | | | | | | | - | | | | | | | [facility] | | | | | | | raman | + + + +---+---+ + Encounters + + + + + + + | Encounter | Providers | Location | Date | Indicatio | Data | | | | | | ns | Source(s) | + + + + + + + | OUTPATIEN | Admitter: | [facility] | | T | SHARI | Family | 0 | | r | | | AALIYAH | Medicine | 10:07:00 | | Physician | | | | | AM CDT | | s Hot | | | | | | | [facility] | | | | | | | [place] | + + + + + + + | OUTPATIEN | Admitter: | [facility] | [facility] | | T | SHARI | Family | 0 | | r | | | AALIYAH | Medicine | 11:44:00 | | Physician | | | | | 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 | | s Hot | | | | | | | [facility] | | | | | | | [facility] | + + + + + + + | OUTPATIEN | | [facility] | | | National | | T | | paedic | 0 | | [facility] | | | | Center of | 02:27:00 | | Medical | | | | Hot | 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 | | Center | | | | [facility] | | | Clinics | + + + + + + + | OUTPATIEN | | [facility] | | | National | | T | | paedic | 0 | | [facility] | | | | Center of | 02:25:00 | | Medical | | | | Hot | 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 | | Center | | | | [facility] | | | Clinics | + + + + + + + | Inpatient | Attender: | | | | National | | | [place] | | 0 | | [facility] | | | [facility] | | 01:23:00 | | Medical | | | MDAdmitte | | 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 | | Center | | | r: [place] | | | | ([facility]) | | | [facility]OY[facility] | | | | Hospital | | | MDConsult | | | | | | | ant: | | | | | | | [facility]o | | | | | | | Jf | | | | | + + + + + + + | OUTPATIEN | Attender: | [facility] | | | National | | T | Roberto | paedic | 0 | | [facility] | | | [facility] | Center of | 03::00 | | Medical | | | | Hot | 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 | | Center | | | | [facility] | | | Clinics | + + + + + + + | OUTPATIEN | Attender: | [facility] | | | National | | T | Roberto | paedic | 0 | | [facility] | | | Ben | Center of | 03:27:00 | | Medical | | | | Hot | 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 | | Center | | | | [facility] | | | Clinics | + + + + + + + | OUTPATIEN | Attender: | [facility] | | | National | | T | Roberto | paedic | 0 | | [facility] | | | Ben | Center of | 03:27:00 | | Medical | | | | Hot | 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 | | Center | | | | [facility] | | | Clinics | + + + + + + + | OUTPATIEN | Attender: | [facility] | | | National | | T | Roberto | paedic | 0 | | [facility] | | | Ben | Center of | 03:19:00 | | Medical | | | | Hot | 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 | | Center | | | | [facility] | | | Clinics | + + + + + + + | OUTPATIEN | Attender: | [facility] | | | National | | T | Roberto | paedic | 0 | | [facility] | | | Ben | Center of | :19:00 | | Medical | | | | Hot | 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 | | Center | | | | [facility] | | | Clinics | + + + + + + + | OUTPATIEN | Attender: | [facility] | | | National | | T | Roberto | paedic | 0 | | Park | | | Ben | Center of | 03:19:00 | | Medical | | | | Hot | 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 | | Center | | | | [facility] | | | Clinics | + + + + + + + | OUTPATIEN | | [facility] | | | National | | T | | paedic | 0 | | [facility] | | | | Center of | : | | Medical | | | | Hot | 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 | | Center | | | | [facility] | | | Clinics | + + + + + + + | OUTPATIEN | Attender: | [facility] | [facility] | | T | [facility] | Family | 0 | | r | | | Annmarie PEDROZA | Medicine | : | | Physician | | | | | 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 | | s Hot | | | | | | | [facility] | | | | | | | [facility] | + + + + + + + | OUTPATIEN | Attender: | [facility] | [facility] | [facility] | | T | Hernán | Family | 0 | | r | | | Annmarie PEDROZA | Medicine | : | | Physician | | | | | 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 | | s Hot | | | | | | | [facility] | | | | | | | [facility] | + + + + + + + | OUTPATIEN | Attender: | [place] | | | [facility] | | T | Hernán | Family | 0 | | r | | | Annmarie PEDROZA | Medicine | 10:13:00 | | Physician | | | | | 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 | | s Hot | | | | | | | [facility] | | | | | | | [place] | + + + + + + + | OUTPATIEN | Attender: | [facility] | | | [facility] | | T | Hernán | Family | 0 | | r | | | Annmarie PEDROZA | Medicine | ::00 | | Physician | | | | | 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 | | s Hot | | | | | | | [facility] | | | | | | | [facility] | + + + + + + + | OUTPATIEN | Attender: | [facility] | | | [facility] | | T | Hernán | Family | 0 | | r | | | Annmarie PEDROZA | Medicine | 06:22:00 | | Physician | | | | | 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 | | s Hot | | | | | | | [facility] | | | | | | | [place] | + + + + + + + | OUTPATIEN | Admitter: | [place] | | | [facility] | | T | SHARI | Family | 0 | | r | | | AALIYAH | Medicine | 03:12:00 | | Physician | | | | | 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 | | s Hot | | | | | | | [facility] | | | | | | | [facility] | + + + + + + + | OUTPATIEN | Attender: | [facility] | | | [facility] | | T | Jono | Family | 0 | | r | | | Jf | Medicine | 01:36:00 | | Physician | | | | | 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 | | s Hot | | | | | | | [facility] | | | | | | | [place] | + + + + + + + | OUTPATIEN | Attender: | [facility] | | | [facility] | | T | Jono | Family | 0 | | r | | | Jf | Medicine | 01:36:00 | | Physician | | | | | 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 | | s Hot | | | | | | | [facility] | | | | | | | [place] | + + + + + + + | OUTPATIEN | Attender: | [facility] | | | [facility] | | T | Jono | Family | 0 | | r | | | Jf | Medicine | 06:00:00 | | Physician | | | | | 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 | | s Hot | | | | | | | [facility] | | | | | | | [place] | + + + + + + + | OUTPATIEN | Attender: | [place] | | | [facility] | | T | Jono | Family | 0 | | r | | | Jf | Medicine | 06:00:00 | | Physician | | | | | 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 | | s Hot | | | | | | | [facility] | | | | | | | [place] | + + + + + + + | Outpatien | | [facility] | | | [facility] t | | [facility] | 0 | | [facility] | | | | | 12:00:00 | | Hot | | | | | 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 | | [facility] | | | | | | | Hospital | + + + + + + + + + | AGE TIME PATIENT REPORTED: 68FACILITY / VISIT TYPE: [id number] | + + + + + + +---+ + | OUTPATIEN | Admitter: | [facility] | | | [facility] | | T | SHARI | Family | 0 | | r | | | [place] | [facility] | 04:24:00 | | Physician | | | | | 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 | | s Hot | | | | | | | [facility] | | | | | | | [place] | + + + + +---+ + | OUTPATIEN | Admitter: | [facility] | | | [facility] | | T | SHARI | Family | 0 | | r | | | [place] | [facility] | 04:24:00 | | Physician | | | | | 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 | | s Hot | | | | | | | [facility] | | | | | | | [place] | + + + + +---+ + | Inpatient | Attender: | -Surgical | | | | | | [facility] | Day Care | 0 | | [facility] | | | [place] | | 03:54:00 | | Medical | | | MDAdmitte | (EA)-D.M2 | 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 - | | Center | | | r: Hern[facility] | | | | ([facility]) | | | [place] | | 0 | | Hospital | | | MDReferre | | 02:12:00 | | | | | r: | | 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 | | | | | [facility]o | | | | | | | [facility] | | | | | | | sultant: | | | | | | | Jono | | | | | | | Jf | | | | | + + + + +---+ + | OUTPATIEN | Admitter: | [facility] | | | [facility] | | T | SHARI | Family | 0 | | r | | | [place] | [facility] | 01:58:00 | | Physician | | | | | 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 | | s Hot | | | | | | | [facility] | | | | | | | [facility] | + + + + +---+ + | OUTPATIEN | Admitter: | [facility] | | | [facility] | | T | SHARI | Family | 0 | | r | | | [place] | [facility] | 12:35:00 | | Physician | | | | | 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 | | s Hot | | | | | | | [facility] | | | | | | | [place] | + + + + +---+ + | Outpatien | Attender: | [facility] | | | [facility] | | t | Jono | Family | 0 | | r | | | JfAdm | Medicine | 11:35:00 | | Physician | | | itter: | | 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 - | | s Hot | | | [facility] | | | | [facility] | | | AALIYAH | | 0 | | [place] | | | | | 12:58:00 | | | | | | | 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 | | | + + + + +---+ + + + | PatientName : ANDIE BEAN (68yo, F) ID# [id number]. Date/Time : | | 09/13/2019 11:45AMDOB : 1Service Dept. : [facility] | | MedicineProvider : JONO RHOADES DOIshonnaMed Primary: UNITED | | HEALTHCARE (MEDICARE REPLACEMENT/ADVANTAGE - PPO)Insurance # : | | [id number]/Group # : [id number] : JONO RHOADESReferring Provider | | Name : JONO RHOADESPrescription: OPTUMRX - Member is eligible. | | detailsChief ComplaintFollowup: TremorPatient's Care TeamPrimary Care | | Provider (Primary Insurance): JONO RHOADES: [place], | | [place] [address], , Referring Provider | | (Primary Insurance): JONO RHOADES: [place] [address], | | , Nurse Practitioner: SHARI | | [facility]URHAMashe [facility] hospitalry Care Provider: Arthur SOFIA | | [facility] ([facility]): [address] [place] [address] [address], | | [place] [address], , VitalsHt:5 ft 5 | | in (165.1 cm) 09/13/2019 12:27 pmWt:173 lbs (78.47 kg) 09/13/2019 | | 12:27 pmBMI:28.8 09/13/2019 12:27 pmBP:122/76 sitting R arm 09/13/2019 | | 12:28 lwS6Guv:98% Room Air at Rest 09/13/2019 12:28 pmPulse:75 bpm | | regular 09/13/2019 12:28 pmRR:12 09/13/2019 12:28 pmT:99.4 F? ear | | (37.44 C) 09/13/2019 12:29 pmAllergiesReviewed AllergiesPRAVACHOL: | | Myalgias (muscle pain), Other - FatigueMedicationsReviewed | | MedicationsName: Adult Aspirin Regimen 81 mg tablet,delayed release | | Take 1 tablet(s) every day by oral route.Date: 09/03/18 | | enteredSource: Kathy Hopkins RT(R)(Ct)-MaName: Anoro Ellipta 62.5 | | mcg-25 mcg/actuation powder for inhalation INHALE 1 PUFF ONCE EACH DAY | | THANK YOU Date: 10/22/18 filledSource: PRESCRIPTION | | SOLUTIONSName: atorvastatin 40 mg tablet Take 1 tablet(s) every day by | | oral route. THANK YOU Date: 09/12/19 renewedSource: SHARI | | AALIYAH CNSName: carvediloL 3.125 mg tablet Take 1 tablet(s) twice a | | day by oral route.Date: 08/16/19 enteredSource: SHARI DURHAM, | | CNSName: clotrimazole-betamethasone 1 %-0.05 % topical creamDate: | | 08/24/19 filledSource: PRESCRIPTION SOLUTIONSName: furosemide 40 mg | | tabletDate: 08/31/19 filledSource: PRESCRIPTION SOLUTIONSName: | | furosemide 80 mg tablet Take 1 tablet(s) twice a day by oral | | route.Date: 08/16/19 filledSource: PRESCRIPTION SOLUTIONSName: | | gabapentin 600 mg dailyDate: 08/12/19 enteredSource: SHARI DURHAM, | | CNSName: insulin lispro (U-100) 100 unit/mL subcutaneous pen sliding | | scale with 5 units with mealsDate: 08/30/19 filledSource: | | PRESCRIPTION SOLUTIONSName: Lantus Solostar U-100 Insulin 100 unit/mL | | (3 mL) subcutaneous pen Inject 15 unit(s) every day by subcutaneous | | route.Date: 03/21/19 filledSource: PRESCRIPTION SOLUTIONSName: Lantus | | U-100 Insulin 100 unit/mL subcutaneous solutionDate: 04/20/19 | | filledSource: PRESCRIPTION SOLUTIONSName: omeprazole 20 mg | | capsule,delayed release Take 1 capsule(s) every day by oral route.Date: | | 08/31/19 filledSource: PRESCRIPTION SOLUTIONSName: ProAir HFA 90 | | mcg/actuation aerosol inhaler Inhale 2 puff(s) every 4 hours by | | inhalation route.Date: 08/17/19 filledSource: PRESCRIPTION | | SOLUTIONSName: Questran 4 gram oral powder Take 1 scoop(s) every day by | | oral route.Note: for diarrheaDate: 09/17/18 prescribedSource: | | Ellen SOFIA: TRUEplus Pen Needle 31 gauge x 10/09"Date: | | 03/03/17 filledSource: PRESCRIPTION SOLUTIONSName: Tums 2 - 400mg | | tabs with every mealDate: 04/12/19 enteredSource: Meghan Shoemaker | | Bsrt(R)-MaName: Vitamin D2 1,250 mcg (50,000 unit) capsule Take 1 | | capsule(s) every week by oral route.Date: 08/03/19 renewedSource: | | SHALA JAIN, CNPVaccinesVaccines not reviewed (last reviewed | | 05/24/2019)Vaccine Type: influenza, high dose seasonalDate: | | 04/12/19Amt.: 0.5 mLRoute: IntramuscularSite: Deltoid, RightNDC: | | [id number] #: [id number].: Sanofi PasteurExp. Date: 11/08/19Date on | | VIS: 03/10/19VIS Given: 04/12/19Vaccinator: Meghan Shoemaker | | BSRT(R)-MAVaccine Type: influenza, high dose seasonalDate: | | 04/21/18Amt.: 0.5 mLRoute: IntramuscularSite: Deltoid, RightNDC:Lot #: | | [id number].: Sanofi PasteurExp. Date: 10/23/18Date on VIS: 03/02/15VIS | | Given: 04/21/18Vaccinator: Sahri Durham CNSVaccine Type: influenza, | | high dose seasonalDate: 06/02/17mt.:Route:Site:NDC:Lot #:Mfr.:Exp. | | Date:Date on VIS:VIS Given:Account Solutions Analyst:Vaccine Type: influenza, | | injectable, quadrivalentDate: 06/02/17mt.:Route:Site: Deltoid, | | RightNDC:Lot #: [id number].: SeqirusExp. Date: 01/23/18Date on | | VIS:VIS Given: 06/02/17Vaccinator:Vaccine Type: pneumococcal conjugate | | PCV 13Date: 11/09/17Amt.: 0.5 mLRoute: IntramuscularSite: Deltoid, | | RightNDC:Lot #: [id number].: Other manufacturerExp. Date: 09/25/19Date | | on VIS: 05/31/15VIS Given: 11/09/17Vaccinator: Meghan Shoemaker | | BSRT(R)-MAVaccine Type: pneumococcal polysaccharide [id number]: | | 05/27/16Amt.:Route:Site:NDC:Lot #:Mfr.:Exp. Date:Date on VIS:VIS | | Given:Account Solutions Analyst:ProblemsReviewed Problems* Chronic kidney disease | | stage 5 - Onset: 08/12/2019* Tremor* Vitamin D deficiency - Onset: | | 06/16/2018* Hepatitis C antibody test positive - Onset: 12/28/2017* | | Essential hypertension* Postmenopausal osteoporosis* Lumbar | | radiculopathy* Diabetic neuropathy* Cardiomyopathy - Onset: 2017* | | Stasis dermatitis - Onset: 2017* Mixed hyperlipidemia - Onset: | | 10/03/2017* Tobacco user - Onset: 10/03/2017* Type II diabetes mellitus | | uncontrolled - Onset: 10/03/2017* Amputated below knee - Onset: | | 10/03/2017* Chronic obstructive lung disease - Onset: 08/27/2017Family | | HistoryFamily History not reviewed (last reviewed 05/24/2019)Brother- | | Heart disease- all 3 of this- Type 2 diabetes mellitusMother- | | Pulmonary emphysema- Disorder of thyroid glandPaternal Grandmother- | | Malignant tumor of breastSister- Malignant tumor of breast- Type 2 | | diabetes mellitusSocial HistorySocial History not reviewed (last | | reviewed 05/24/2019)Family Medicine and Medical Wellness Visit/IPPEAble | | to Care for Self: NLive alone or with others?: with othersAdvance | | directive: Marycruz you currently employed?: NEducation: 12Occupation: | | DisabledNumber of children: 3Guns present in home: NAlcohol intake: | | NoneCaffeine intake: OccasionalIllicit drugs: NODiet: DiabeticExercise | | level: NoneHard of hearing or deaf in one or both ears?: NLegally blind | | in one or both eyes?: NSexual orientation: HeterosexualSmoke alarm in | | home: YTobacco Smoking Status: Current every day smokerChewing tobacco: | | noneSmoker (1 /2 PPD)Has smoked since age: 25Tobacco-years of use: | | 25Passive smoke exposure?: YSeat belts used routinely: YSunscreen used | | routinely: NIs the patient ambulatory?: Yes: limited self-mobility with | | assistive device(s); generally relies on wheeled mobilityMost Recent | | Tobacco Use Screenin12/15/2018Tobacco cessation counseling provided | | date: 12/15/2018Single or multi-level home/work?: single level | | homeMarital status: MarriedSurgical HistorySurgical History not | | reviewed (last reviewed 05/24/2019)* Cholecystectomy* Amputation - | | 02/25/2016 - LT leg amputation above the knee* Colonoscopy - | | 02/24/2014* Stent - 07/27/2006 - cardiac stent* delivery - | | 07/27/1975GYN HistoryGYN History not reviewed (last reviewed | | 05/24/2019)Most Recent Mammogram: (Notes: never had).Obstetric | | HistoryObstetric History not reviewed (last reviewed 05/24/2019)TOTAL: | | 3FULL: 3PRE:AB. I:AB. S:ECTOPICS:MULTIPLE:LIVINPast Medical | | HistoryPast Medical History not reviewed (last reviewed | | 05/24/2019)Other: Y - Dialysis from 02/2016 to 10/2016 with fistula in | | LT armStent: Y - cardiac stentNotes: Broke LT leg on 01/21/2016 and had | | internal fixation performed but after she was discharged, she was | | admitted back into the hospital 2 weeks later with severe infection. | | Her LT leg (from knee down) amputated 03/03/2016 from severe infection | | while in [facility].HPICellulitisReported by | | patient.Location: right legsQuality: painful; red; raised; warm; | | drainingSeverity: severe; worseningDuration: has been seeing wound care | | for 3 months. She was unable to go to wound care for the last 2 weeks | | due to being sick, and states that her pain is unbearable now and new | | areas coming upSymptoms: fever; swellingROSConstitutional: | | Constitutional: fever.Cardiovascular: Cardiovascular: no chest | | pain.Respiratory: Respiratory: shortness of breath | | (BASELINE).Gastrointestinal: Gastrointestinal: no nausea, vomiting, | | constipation, diarrhea, or abdominal pain.Musculoskeletal: | | Musculoskeletal: RIGHT LEG PAIN.Integumentary: Skin: REDDNESS,WARMTH | | AND PAIN OF RIGHT LOWER LEG.Endocrine: Endocrine: no fatigue.Physical | | ExamPatient is a 68-year-old female.Constitutional: General Appearance: | | well-developed. Level of Distress: acutely ill and chronically ill. | | Ambulation: in wheelchair.Psychiatric: Mental Status: active and | | alert.Eyes: Pupils: PERRLA. EOM: EOMI.ENMT: Ears: no lesions on | | external ear and TMs clear. Hearing: no hearing loss.Lungs: | | Auscultation: decreased breath sounds.Cardiovascular: Heart | | Auscultation: RRR and CARLIE (3/6).Abdomen: Bowel Sounds: normal. | | Inspection and Palpation: soft and no tenderness. Liver: non-tender and | | no hepatomegaly. Spleen: non-tender.Musculoskeletal:: Extremities: | | left BKA, RLE WITH MARKED REDDNESS AND SWELLING.Neurologic: Sensation | | Right Foot: right facial weakness with + [place] sign-improved.Foot | | Exam:: Right Foot: right foot toes were examined and digital hair | | absent right; Marked swelling and loss of sensation. Left Foot: | | amputated.Assessment / Plan1. Cellulitis of lower limb -ADMIT [facility]. SHE | | ALREADY HAS A LEFT BKA. SHE MAY LOOSE RIGHT LEG. REFUSES DIALYSIS. | | PROGNOSIS IS POOR. CONT TO SMOKE. GIVE ONE DOSE OF VANC TODAY. CALLED | | AND NOTIFIED PIN DRAFTING MACHINE TENDER AND Julia BUTLER OF HOSPTIAL TEAM. ORDERS | | WRITTEN AND SENTL03.119: Cellulitis of unspecified part of limb* | | COMPLETE BLOOD COUNT W/DIFF -Specimen source: Blood venous2. Chronic | | kidney disease stage 5 -REFUSES FJRMBXAWQ07.5: Chronic kidney disease, | | stage 53. Dependence on wheel wvypoA20.3: Dependence on wheelchair4. | | Chronic obstructive lung disease -CONTINUES TO YWWSAO25.9: Chronic | | obstructive pulmonary disease, unspecified5. Cardiomyopathy -I42.9: | | Cardiomyopathy, unspecified6. Diabetic neuropathy -E11.40: Type 2 | | diabetes mellitus with diabetic neuropathy, unspecified7. Type II | | diabetes mellitus uncontrolled -E11.65: Type 2 diabetes mellitus with | | hyperglycemia8. Essential hypertension -I10: Essential (primary) | | hypertension9. Hepatitis C antibody test positive -Z86.19: Personal | | history of other infectious and parasitic uozjvpzq29. Mixed | | hyperlipidemia -E78.2: Mixed ndtxkupqgvzhua53. Postmenopausal | | osteoporosis -M81.0: Age-related osteoporosis without current | | pathological eyuoejgr61. Stasis dermatitis -I87.2: Venous insufficiency | | (chronic) (peripheral)13. Tobacco user -Z72.0: Tobacco use14. Tremor | | -R25.1: Tremor, eloghuoiznk80. Vitamin D deficiency -E55.9: Vitamin D | | deficiency, unspecifiedReturn to Office* to see TRAVIS OMALLEY for | | LAB 10 at [facility] on or around 09/23/2019* to see | | [facility] for ANY 15 at [facility] on or around | | 11/23/2019* to see [facility] for ANY 15 at [facility] | | on or around 11/24/2019* to see TRAVIS OMALLEY for Medicare | | Wellness at [facility] on or around 12/17/2019Encounter | | Sign-OffEncounter signed-off by JONO RHOADES DO, 09/13/2019. | + + + + + + +---+ + | OUTPATIEN | Admitter: | [facility] | | | National | | T | DR Thais Weaver | 0 | | Shirley | | | JAZZMINE | Cardiolog | 09:07:00 | | Medical | | | [facility] | y | 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 | | Center | | | | Associate | | | Clinics | | | | s | | | | + + + + +---+ + | Outpatien | Attender: | CLARISSA-SJZayda | | | [facility] | | t | [facility] | OPHYPWC | 0 | | Vincent | | | LILY | | 12:00:00 | | Hot | | | APNAdmitt | | 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 | | [facility] | | | er: | | | | Hospital | | | [facility] | | | | | | | LILY | | | | | | | APNReferr | | | | | | | er: | | | | | | | JESÚS | | | | | | | KLEINHENZ | | | | | + + + + +---+ + + + | AGE TIME PATIENT REPORTED: 68FACILITY / VISIT TYPE: [id number] | | COMPLAINT:FIND:PT:PATIENT:NOM:REPORTED: | + + + + + + +---+ + | OUTPATIEN | Admitter: | [place] | | | [facility] | | T | SHARI | Family | 0 | | r | | | AALIYAH | Medicine | 04:49:00 | | Physician | | | | | 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 | | s Hot | | | | | | | [facility] | | | | | | | Sadaf | + + + + +---+ + | OUTPATIEN | Attender: | [place] | | | [facility] | | T | SHARI | Family | 0 | | r | | | [facility] | Medicine | 04:45:00 | | Physician | | | | | 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 | | s Hot | | | | | | | [place] | | | | | | | [place] | + + + + +---+ + | OUTPATIEN | Attender: | [place] | | | [facility] | | T | SHARI | Family | 0 | | r | | | AALIYAH | Medicine | 04:56:00 | | Physician | | | | | 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 | | s Hot | | | | | | | [facility] | | | | | | | Sadaf | + + + + +---+ + | OUTPATIEN | Admitter: | [place] | | | [facility] | | T | SHARI | Family | 0 | | r | | | AALIYAH | Medicine | 03:06: | | Physician | | | | | 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 | | s Hot | | | | | | | [place] | | | | | | | [place] | + + + + +---+ + | OUTPATIEN | Attender: | [place] | | | [facility] | | T | SHARI | Family | 0 | | r | | | [facility] | Medicine | : | | Physician | | | | | 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 | | s Hot | | | | | | | [place] | | | | | | | Sadaf | + + + + +---+ + | OUTPATIEN | Attender: | [place] | | | [facility] | | T | SHARI | Family | 0 | | r | | | AALIYAH | Medicine | : | | Physician | | | | | 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 | | s Hot | | | | | | | [place] | | | | | | | [place] | + + + + +---+ + | OUTPATIEN | Attender: | [place] | | | [facility] | | T | SHARI | Family | 0 | | r | | | AALIYAH | Medicine | : | | Physician | | | | | 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 | | s Hot | | | | | | | [place] | | | | | | | [place] | + + + + +---+ + | OUTPATIEN | Attender: | [place] | | | [facility] | | T | SHARI | Family | 0 | | r | | | [facility] | Medicine | 03:43:00 | | Physician | | | | | 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 | | s Hot | | | | | | | [place] | | | | | | | [place] | + + + + +---+ + | OUTPATIEN | Admitter: | [facility] | | | [facility] | | T | SHARI | Family | 0 | | r | | | AALIYAH | Medicine | 03:40:00 | | Physician | | | | | 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 | | s Hot | | | | | | | [place] | | | | | | | Sad[facility] | + + + + +---+ + | OUTPATIEN | Admitter: | [facility] | | | [facility] | | T | SHARI | Family | 0 | | r | | | [facility] | Medicine | 02:50:00 | | Physician | | | | | 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 | | s Hot | | | | | | | [place] | | | | | | | Sadaf | + + + + +---+ + | OUTPATIEN | Admitter: | [facility] | | | [facility] | | T | SHARI | Family | 0 | | r | | | AALIYAH | Medicine | 02:49:00 | | Physician | | | | | 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 | | s Hot | | | | | | | [place] | | | | | | | [place] | + + + + +---+ + | Outpatien | Attender: | [place] | | | [facility] | | t | SHARI | Family | 0 | | r | | | [facility] Medicine | 01:50:00 | | Physician | | | dmitter: | | 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 - | | s Hot | | | SHARI | | | | [place] | | | AALIYAH | | 0 | | Sadaf | | | | | 02:40:00 | | | | | | | 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 | | | + + + + +---+ + + + | PatientName : DAVID ANDIE (68yo, F) ID# [id number]. Date/Time : | | 08/23/2019 02:00PMDOB : ervice Dept. : [facility] | | MedicineProvider : SHARI DURHAM CNSInsuranceMed Primary: UNITED | | HEALTHCARE (MEDICARE REPLACEMENT/ADVANTAGE - PPO)Insurance # : | | [id number]/Group # : [id number] : JONO RHOADESReferrdaniel Provider | | Name : JONO RHOADESPrescription: OPTUMRX - Member is eligible. | | detailsChief ComplaintFollow-UpPatient's Care TeamPrimary Care Provider | | (Primary Insurance): JONO RHOADES: [address], [place] [address], | | , Referring Provider (Primary | | Insurance): JONO RHOADES: [address], [place] [address], Ph [phone] | | [phone], Nurse Practitioner: SHARI DURHAM, | | CNSPrimary Care Provider: JONO RHOADES, [facility] | | [facility] ([facility]): [address] [place] [address] [address], [place] | | [phone], , VitalsHt:5 ft 5 in (165.1 | | cm) 08/23/2019 01:56 pmWt:Not Performed - Not tolerated 08/23/2019 | | 01:56 pmBP:104/66 sitting R arm 08/23/2019 01:58 hcX6Iwc:99% Room Air | | at Rest 08/23/2019 01:57 pmPulse:63 bpm 08/23/2019 01:57 | | pmAllergiesReviewed AllergiesPRAVACHOL: Myalgias (muscle pain), Other - | | FatigueMedicationsReviewed MedicationsName: Adult Aspirin Regimen 81 | | mg tablet,delayed release Take 1 tablet(s) every day by oral | | route.Date: 09/03/18 enteredSource: Kathy Hopkins RT(R)(Ct)-MaName: | | Anoro Ellipta 62.5 mcg-25 mcg/actuation powder for inhalation INHALE 1 | | PUFF ONCE EACH DAY THANK YOU Date: 10/22/18 filledSource: | | PRESCRIPTION SOLUTIONSName: atorvastatin 40 mg tablet Take 1 tablet(s) | | every day by oral route.Date: 03/14/19 filledSource: PRESCRIPTION | | SOLUTIONSName: carvediloL 3.125 mg tablet Take 1 tablet(s) twice a day | | by oral route.Date: 08/16/19 enteredSource: SHARI DURHAM, CNSName: | | furosemide 80 mg tablet Take 1 tablet(s) twice a day by oral | | route.Date: 08/16/19 prescribedSource: SHARI DURHAM CNSName: | | gabapentin 600 mg dailyDate: 08/12/19 enteredSource: SHARI DURHAM, | | CNSName: HumaLOG KwikPen (U-100) Insulin 100 unit/mL subcutaneous | | sliding scale with 5 units with mealsDate: 06/01/17 filledSource: | | PRESCRIPTION SOLUTIONSName: Lantus Solostar U-100 Insulin 100 unit/mL | | (3 mL) subcutaneous pen Inject 15 unit(s) every day by subcutaneous | | route.Date: 03/21/19 filledSource: PRESCRIPTION SOLUTIONSName: Lantus | | U-100 Insulin 100 unit/mL subcutaneous solutionDate: 04/20/19 | | filledSource: PRESCRIPTION SOLUTIONSName: omeprazole 20 mg | | capsule,delayed release Take 1 capsule(s) every day by oral route.Date: | | 08/04/19 filledSource: PRESCRIPTION SOLUTIONSName: ProAir HFA 90 | | mcg/actuation aerosol inhaler Inhale 2 puff(s) every 4 hours by | | inhalation route.Date: 08/17/19 changedSource: SHARI DURHAM, | | CNSName: Questran 4 gram oral powder Take 1 scoop(s) every day by oral | | route.Note: for diarrheaDate: 09/17/18 prescribedSource: JONO | | Ellen RHOADES: TRUEplus Pen Needle 31 gauge x 3/16"Date: 03/03/17 | | filledSource: PRESCRIPTION SOLUTIONSName: Tums 2 - 400mg tabs with | | every mealDate: 04/12/19 enteredSource: Meghan Shoemaker | | Bsrt(R)-MaName: Vitamin D2 1,250 mcg (50,000 unit) capsule Take 1 | | capsule(s) every week by oral route.Date: 08/03/19 renewedSource: | | SHALA JAIN, CNPVaccinesVaccines not reviewed (last reviewed | | 05/24/2019)Vaccine Type: influenza, high dose seasonalDate: | | 04/12/19Amt.: 0.5 mLRoute: IntramuscularSite: Deltoid, RightNDC: | | [id number] #: [id number].: Sanofi PasteurExp. Date: 11/08/19Date on | | VIS: 03/10/19VIS Given: 04/12/19Vaccinator: Meghan Shoemaker | | BSRT(R)-MAVaccine Type: influenza, high dose seasonalDate: | | 04/21/18Amt.: 0.5 mLRoute: IntramuscularSite: Deltoid, RightNDC:Lot #: | | [id number].: Sanofi PasteurExp. Date: 10/23/18Date on VIS: 03/02/15VIS | | Given: 04/21/18Vaccinator: TRAVIS OmalleyVaccine Type: influenza, | | high dose seasonalDate: 06/02/17mt.:Route:Site:[facility]:Lot #:[id number].:Exp. | | Date:Date on VIS:VIS Given:Account Solutions Analyst:Vaccine Type: influenza, | | injectable, quadrivalentDate: 06/02/17mt.:Route:Site: Deltoid, | | RightNDC:Lot #: [id number].: SeqirusExp. Date: 01/23/18Date on | | VIS:VIS Given: 06/02/17Vaccinator:Vaccine Type: pneumococcal conjugate | | PCV 13Date: 11/09/17Amt.: 0.5 mLRoute: IntramuscularSite: Deltoid, | | RightNDC:Lot #: [id number].: Other manufacturerExp. Date: 09/25/19Date | | on VIS: 05/31/15VIS Given: 11/09/17Vaccinator: Meghan Shoemaker | | BSRT(R)-MAVaccine Type: pneumococcal polysaccharide [id number]: | | 05/27/16Amt.:Route:Site:[facility]:Lot #:[id number].:Exp. Date:Date on VIS:VIS | | Given:Account Solutions Analyst:ProblemsReviewed Problems* Type II diabetes mellitus | | uncontrolled - Onset: 10/03/2017* Diabetic neuropathy* Vitamin D | | deficiency - Onset: 06/16/2018* Mixed hyperlipidemia - Onset: | | 10/03/2017* Tobacco user - Onset: 10/03/2017* Essential hypertension* | | Cardiomyopathy - Onset: 2017* Stasis dermatitis - Onset: | | 2017* Chronic obstructive lung disease - Onset: 08/27/2017* | | Chronic kidney disease stage 4 - Onset: 09/10/2018* Chronic kidney | | disease stage 5 - Onset: 08/12/2019* Lumbar radiculopathy* | | Postmenopausal osteoporosis* Tremor* Hepatitis C antibody test positive | | - Onset: 12/28/2017* Amputated below knee - Onset: 10/03/2017Family | | HistoryFamily History not reviewed (last reviewed 05/24/2019)Brother- | | Heart disease- all 3 of this- Type 2 diabetes mellitusMother- | | Pulmonary emphysema- Disorder of thyroid glandPaternal Grandmother- | | Malignant tumor of breastSister- Malignant tumor of breast- Type 2 | | diabetes mellitusSocial HistorySocial History not reviewed (last | | reviewed 05/24/2019)Family Medicine and Medical Wellness Visit/IPPEAble | | to Care for Self: NLive alone or with others?: with othersAdvance | | directive: Jose Antonioe you currently employed?: NEducation: 12Occupation: | | DisabledNumber of children: 3Guns present in home: NAlcohol intake: | | NoneCaffeine intake: OccasionalIllicit drugs: NODiet: DiabeticExercise | | level: NoneHard of hearing or deaf in one or both ears?: NLegally blind | | in one or both eyes?: NSexual orientation: HeterosexualSmoke alarm in | | home: YTobacco Smoking Status: Current every day smokerChewing tobacco: | | noneSmoker (1 07/28 PPD)Has smoked since age: 25Tobacco-years of use: | | 25Passive smoke exposure?: YSeat belts used routinely: YSunscreen used | | routinely: NIs the patient ambulatory?: Yes: limited self-mobility with | | assistive device(s); generally relies on wheeled mobilityMost Recent | | Tobacco Use Screenin12/15/2018Tobacco cessation counseling provided | | date: 12/15/2018Single or multi-level home/work?: single level | | homeMarital status: MarriedSurgical HistorySurgical History not | | reviewed (last reviewed 05/24/2019)* Cholecystectomy* Amputation - | | 02/25/2016 - LT leg amputation above the knee* Colonoscopy - | | 02/24/2014* Stent - 07/27/2006 - cardiac stent* delivery - | | 07/27/1975GYN HistoryGYN History not reviewed (last reviewed | | 05/24/2019)Most Recent Mammogram: (Notes: never had).Obstetric | | HistoryObstetric History not reviewed (last reviewed 05/24/2019)TOTAL: | | 3FULL: 3PRE:AB. I:AB. S:ECTOPICS:MULTIPLE:LIVINPast Medical | | HistoryPast Medical History not reviewed (last reviewed | | 05/24/2019)Other: Y - Dialysis from 02/2016 to 10/2016 with fistula in | | LT armStent: Y - cardiac stentNotes: Broke LT leg on 01/21/2016 and had | | internal fixation performed but after she was discharged, she was | | admitted back into the hospital 2 weeks later with severe infection. | | Her LT leg (from knee down) amputated 03/03/2016 from severe infection | | while in [facility].HPIEdemaReported by patient.Location: | | RLE, ABDDuration: constantOnset/Timing: started 3 months agoContext: | | prior history of edemaNotes:Pt states she believes her edema is | | improving. The weeping has improved. She just came from the wound | | clinic and had a new dressing applied.ROSPatient reports no chest pain | | and no palpitations; edema bilateral lowe rextremity- improving. She | | reports shortness of breath (baseline) but reports no cough, no | | wheezing, and no coughing up blood. She reports arthralgias/joint pain, | | back pain, and neck pain; left amputee- in wheelchair. Skin:: | | cellulitis right lower extremity- better and being treated at Wound | | Clinic. She reports tremor. She reports fatigue. She reports no fever, | | no significant weight gain, and no significant weight loss. She reports | | no abdominal pain, no nausea, no vomiting, no constipation, and no | | diarrhea. She reports no swollen glands.ROS as noted in the HPIPhysical | | ExamPatient is a 68-year-old female.Constitutional: General | | Appearance: well-nourished and well-developed. Level of Distress: | | chronically ill. Ambulation: in wheelchair.Psychiatric: Mental Status: | | active and alert.ENMT: Ears: EACs clear. Nose: nasal passages clear. | | Oropharynx: moist mucous membranes.Neck: Neck: supple. Lymph Nodes: no | | cervical LAD or supraclavicular LAD. Thyroid: non-tender and no | | enlargement.Lungs: Respiratory effort: dyspneic; basaeline. | | Auscultation: decreased breath sounds. Lungs: clear to auscultation | | bilaterally.Cardiovascular: Heart Auscultation: RRR. Right Pulses: | | diminished dorsalis pedis pulse and posterior tibial pulse.Abdomen: | | Bowel Sounds: normal bowel sounds and bowel sounds present. Inspection | | and Palpation: no tenderness or guarding and soft and non-distended. | | Liver: non-tender. Spleen: non-tender.Musculoskeletal:: Extremities: | | left BKA, RLE with edema 1+ with cellulitis.Skin: Lesion Type: | | location: RLE. Color: pink. Location/Description: well demarcated. | | Infectious signs: no warmth, fluctuance, or induration and erythema, | | swelling, and tenderness; weeping again and more tender to touch and | | more edema- not warm to touch.Foot Exam:: Right Foot: right foot toes | | were examined and digital hair absent right; Marked swelling and loss | | of sensation. Left Foot: amputated.Assessment / Plan1. Chronic kidney | | disease stage 5 -N18.5: Chronic kidney disease, stage 5* COMPREHENSIVE | | METABOLIC PANEL2. Congestive heart fgkvaasA24.9: Heart failure, | | unspecified3. Chronic obstructive lung disease -J44.9: Chronic | | obstructive pulmonary disease, unspecified4. Stasis dermatitis | | -followed by Wound FlhqrhH17.2: Venous insufficiency (chronic) | | (peripheral)5. Type II diabetes mellitus uncontrolled -E11.40: Type 2 | | diabetes mellitus with diabetic neuropathy, unspecified* HEMOGLOBIN | | A1C6. Essential hypertension -I10: Essential (primary) hypertension* | | COMPLETE BLOOD COUNT WITH AUTO DIFFPatient InstructionsCall for | | appointment or go to ER or FCW if symptoms worsenReturn to Office* to | | see TRAVIS OMALLEY for LAB 10 at [facility] on or | | around 09/23/2019* to see [place] [facility] for ANY 15 at [facility] on or around 11/23/2019* to see [facility] for ANY 15 at | | [facility] on or around 11/24/2019* to see SHARI | | TRAVIS DURHAM for Medicare Wellness at [facility] on or | | around 12/17/2019Encounter Sign-OffEncounter signed-off by SHARI | | TRAVIS DURHAM, 08/29/2019. | + + + + + + +---+ + | Outpatien | Attender: | [facility] | | | [facility] | | t | ANDREA | OPHYPWC | 0 | | Ever | | | ARMINEYAdmi | | 12:00:00 | | Hot | | | tter: | | 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 - | | Meg | | | ANDREA | | | | Hospital | | | RICKRefe | | 0 | | | | | rrer: | | 11:59:00 | | | | | MARLENA | | 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 | | | | | JEOVANNY | | | | | + + + + +---+ + + + | READMISSION RISK SCORE: 3AGE TIME PATIENT REPORTED: 68FACILITY / VISIT | | TYPE: [id number] COMPLAINT:FIND:PT:PATIENT:NOM:REPORTED: | + + + + + + +---+ + | OUTPATIEN | Admitter: | [facility] | | | [facility] | | T | SHARI | Family | 0 | | r | | | [facility] | [facility] | 02:53:00 | | Physician | | | | | 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 | | s Hot | | | | | | | Meg | | | | | | | [place] | + + + + +---+ + | OUTPATIEN | Attender: | [facility] | | | [facility] | | T | SHARI | Family | 0 | | r | | | AALIYAH | Medicine | 09:55:00 | | Physician | | | | | 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 | | s Hot | | | | | | | [facility] | | | | | | | [place] | + + + + +---+ + | Outpatien | Attender: | [facility] | | | [facility] | | t | [facility] | OPHYPWC | 0 | | Vincent | | | LILY | | 09:13:34 | | Hot | | | APNAdmitt | | 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 - | | [facility] | | | er: | | | | Hospital | | | [place] | | 0 | | | | | LILY | | 11:59:00 | | | | | APNReferr | | 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 | | | | | er: MARLENA | | | | | | | JEOVANNY | | | | | + + + + +---+ + + + | READMISSION RISK SCORE: 3AGE TIME PATIENT REPORTED: 68FACILITY / VISIT | | TYPE: [id number] COMPLAINT:FIND:PT:PATIENT:NOM:REPORTED: | + + + + + + +---+ + | OUTPATIEN | Admitter: | [place] | | | [facility] | | T | SHARI | Family | 0 | | r | | | AALIYAH | Medicine | 09:49:00 | | Physician | | | | | 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 | | s Hot | | | | | | | [place] | | | | | | | [place] | + + + + +---+ + | OUTPATIEN | Attender: | [place] | | | [facility] | | T | SHARI | Family | 0 | | r | | | AALIYAH | Medicine | 09:42:00 | | Physician | | | | | 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 | | s Hot | | | | | | | [place] | | | | | | | [place] | + + + + +---+ + | OUTPATIEN | Admitter: | [place] | | | [facility] | | T | SHARI | Family | 0 | | r | | | AALIYAH | Medicine | 04:42:00 | | Physician | | | | | 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 | | s Hot | | | | | | | [place] | | | | | | | Sadaf | + + + + +---+ + | OUTPATIEN | Admitter: | [place] | | | [facility] | | T | SHARI | Family | 0 | | r | | | AALIYAH | Medicine | 04:40:00 | | Physician | | | | | 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 | | s Hot | | | | | | | [place] | | | | | | | [place] | + + + + +---+ + | OUTPATIEN | Admitter: | [place] | | | [facility] | | T | SHARI | Family | 0 | | r | | | [place] [place] | Medicine | 03:36:00 | | Physician | | | | | 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 | | s Hot | | | | | | | [place] | | | | | | | [place] | + + + + +---+ + | OUTPATIEN | Admitter: | [place] | | | [facility] | | T | SHARI | Family | 0 | | r | | | AALIYAH | Medicine | 03:17:00 | | Physician | | | | | 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 | | s Hot | | | | | | | [facility] | | | | | | | Sadaf | + + + + +---+ + | OUTPATIEN | Admitter: | [place] [facility] | | T | SHARI | Family | 0 | | r | | | AALIYAH | Medicine | 02:16:00 | | Physician | | | | | 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 | | s Hot | | | | | | | [facility] | | | | | | | Sadaf | + + + + +---+ + | OUTPATIEN | Admitter: | [place] | | [facility] | | T | SHARI | Family | 0 | | r | | | AALIYAH | Medicine | 02:16:00 | | Physician | | | | | 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 Date/Time : | | 08/12/2019 01:15PMDOB : 1950[facility] | | MedicineProvider : SHARI DURHAM CNSInsuranceMed Primary: UNITED | | HEALTHCARE (MEDICARE REPLACEMENT/ADVANTAGE - PPO)Insurance # : | | [id number]/Group # : [id number] : JONO RHOADESRefkiki Provider | | Name : JONO RHOADESPrescription: OPTUMRX - Member is eligible. | | detailsChief ComplaintEdema, Care PlanPatient's Care TeamPrimary Care | | Provider (Primary Insurance): JONO RHOADES: [address], [place], | | [place] [address], , Referring Provider | | (Primary Insurance): JONO RHOADES: [address], [place] [address], | | , Nurse Practitioner: SHARI | | AALIYAH, [facility] Provider: JONO RHOADES DOPatient's | | [facility] ([facility]): [address] [place] [address] [address], | | [place] [address], , VitalsHt:5 ft 5 | | in (165.1 cm) 08/12/2019 01:20 pmWt:Not Performed - Not tolerated | | 08/12/2019 01:20 pmBP:112/68 sitting R arm 08/12/2019 01:22 zmK2Yre:99% | | Room Air at Rest 08/12/2019 01:21 pmPulse:64 bpm 08/12/2019 01:21 | | pmT:97.4 F? ear (36.33 C) 08/12/2019 01:21 pmAllergiesReviewed | | AllergiesPRAVACHOL: Myalgias (muscle pain), Other - | | FatigueMedicationsReviewed MedicationsName: Adult Aspirin Regimen 81 mg | | tablet,delayed release Take 1 tablet(s) every day by oral route.Date: | | 09/03/18 enteredSource: Kathy Hopkins RT(R)(Ct)-MaName: Anoro Ellipta | | 62.5 mcg-25 mcg/actuation powder for inhalation INHALE 1 PUFF ONCE | | EACH DAY THANK YOU Date: 10/22/18 filledSource: PRESCRIPTION | | SOLUTIONSName: atorvastatin 40 mg tablet Take 1 tablet(s) every day by | | oral route.Date: 03/14/19 filledSource: PRESCRIPTION SOLUTIONSName: | | carvediloL 3.125 mg tablet Take 1 tablet(s) twice a day by oral | | route.Date: 08/16/19 enteredSource: SHARI DURHAM, CNSName: | | furosemide 80 mg tablet Take 1 tablet(s) twice a day by oral | | route.Date: 08/16/19 prescribedSource: SHARI DURHAM, CNSName: | | gabapentin 600 mg dailyDate: 08/12/19 enteredSource: SHARI DURHAM, | | CNSName: HumaLOG KwikPen (U-100) Insulin 100 unit/mL subcutaneous | | sliding scale with 5 units with mealsDate: 06/01/17 filledSource: | | PRESCRIPTION SOLUTIONSName: Lantus Solostar U-100 Insulin 100 unit/mL | | (3 mL) subcutaneous pen Inject 15 unit(s) every day by subcutaneous | | route.Date: 03/21/19 filledSource: PRESCRIPTION SOLUTIONSName: Lantus | | U-100 Insulin 100 unit/mL subcutaneous solutionDate: 04/20/19 | | filledSource: PRESCRIPTION SOLUTIONSName: omeprazole 20 mg | | capsule,delayed release Take 1 capsule(s) every day by oral route.Date: | | 08/04/19 filledSource: PRESCRIPTION SOLUTIONSName: ProAir HFA 90 | | mcg/actuation aerosol inhaler Inhale 2 puff(s) every 4 hours by | | inhalation route.Date: 08/17/19 changedSource: SHARI DURHAM, | | CNSName: Questran 4 gram oral powder Take 1 scoop(s) every day by oral | | route.Note: for diarrheaDate: 09/17/18 prescribedSource: JONO | | Ellen RHOADES: TRUEplus Pen Needle 31 gauge x 10/09"Date: 03/03/17 | | filledSource: PRESCRIPTION SOLUTIONSName: Tums 2 - 400mg tabs with | | every mealDate: 04/12/19 enteredSource: Meghan Shoemaker | | Bsrt(R)-MaName: Vitamin D2 1,250 mcg (50,000 unit) capsule Take 1 | | capsule(s) every week by oral route.Date: 08/03/19 renewedSource: | | SHALA JAIN, CNPVaccinesVaccines not reviewed (last reviewed | | 05/24/2019)Vaccine Type: influenza, high dose seasonalDate: | | 04/12/19Amt.: 0.5 mLRoute: IntramuscularSite: Deltoid, RightNDC: | | [id number] #: [id number].: Sanofi PasteurExp. Date: 11/08/19Date on | | VIS: 03/10/19VIS Given: 04/12/19Vaccinator: Meghan Shoemaker | | BSRT(R)-MAVaccine Type: influenza, high dose seasonalDate: | | 04/21/18Amt.: 0.5 mLRoute: IntramuscularSite: Deltoid, RightNDC:Lot #: | | [id number].: Sanofi PasteurExp. Date: 10/23/18Date on VIS: 03/02/15VIS | | Given: 04/21/18Vaccinator: TRAVIS OmalleyVaccine Type: influenza, | | high dose seasonalDate: 06/02/17mt.:Route:Site:DCC:Lot #:Mfr.:Exp. | | Date:Date on VIS:VIS Given:Account Solutions Analyst:Vaccine Type: influenza, | | injectable, quadrivalentDate: 06/02/17mt.:Route:Site: Deltoid, | | RightNDC:Lot #: [id number].: SeqirusExp. Date: 01/23/18Date on | | VIS:VIS Given: 06/02/17Vaccinator:Vaccine Type: pneumococcal conjugate | | PCV 13Date: 11/09/17Amt.: 0.5 mLRoute: IntramuscularSite: Deltoid, | | RightNDC:Lot #: [id number].: Other manufacturerExp. Date: 09/25/19Date | | on VIS: 05/31/15VIS Given: 11/09/17Vaccinator: Meghan Shoemaker | | BSRT(R)-MAVaccine Type: pneumococcal polysaccharide IHR90Aqdw: | | 05/27/16Amt.:Route:Site:NDC:Lot #:Mfr.:Exp. Date:Date on VIS:VIS | | Given:Account Solutions Analyst:ProblemsReviewed Problems* Type II diabetes mellitus | | uncontrolled - Onset: 10/03/2017* Diabetic neuropathy* Vitamin D | | deficiency - Onset: 06/16/2018* Mixed hyperlipidemia - Onset: | | 10/03/2017* Tobacco user - Onset: 10/03/2017* Essential hypertension* | | Cardiomyopathy - Onset: 2017* Stasis dermatitis - Onset: | | 2017* Chronic obstructive lung disease - Onset: 08/27/2017* | | Chronic kidney disease stage 4 - Onset: 09/10/2018* Chronic kidney | | disease stage 5 - Onset: 08/12/2019* Lumbar radiculopathy* | | Postmenopausal osteoporosis* Tremor* Hepatitis C antibody test positive | | - Onset: 12/28/2017* Amputated below knee - Onset: 10/03/2017Family | | HistoryFamily History not reviewed (last reviewed 05/24/2019)Brother- | | Heart disease- all 3 of this- Type 2 diabetes mellitusMother- | | Pulmonary emphysema- Disorder of thyroid glandPaternal Grandmother- | | Malignant tumor of breastSister- Malignant tumor of breast- Type 2 | | diabetes mellitusSocial HistorySocial History not reviewed (last | | reviewed 05/24/2019)Family Medicine and Medical Wellness Visit/IPPEAble | | to Care for Self: NLive alone or with others?: with othersAdvance | | directive: NAre you currently employed?: NEducation: 12Occupation: | | DisabledNumber of children: 3Guns present in home: NAlcohol intake: | | NoneCaffeine intake: OccasionalIllicit drugs: NODiet: DiabeticExercise | | level: NoneHard of hearing or deaf in one or both ears?: NLegally blind | | in one or both eyes?: NSexual orientation: HeterosexualSmoke alarm in | | home: YTobacco Smoking Status: Current every day smokerChewing tobacco: | | noneSmoker (1 / PPD)Has smoked since age: 25Tobacco-years of use: | | 25Passive smoke exposure?: YSeat belts used routinely: YSunscreen used | | routinely: NIs the patient ambulatory?: Yes: limited self-mobility with | | assistive device(s); generally relies on wheeled mobilityMost Recent | | Tobacco Use Screenin12/15/2018Tobacco cessation counseling provided | | date: 12/15/2018Single or multi-level home/work?: single level | | homeMarital status: MarriedSurgical HistorySurgical History not | | reviewed (last reviewed 05/24/2019)* Cholecystectomy* Amputation - | | 02/25/2016 - LT leg amputation above the knee* Colonoscopy - | | 02/24/2014* Stent - 07/27/2006 - cardiac stent* delivery - | | 07/27/1975GYN HistoryGYN History not reviewed (last reviewed | | 05/24/2019)Most Recent Mammogram: (Notes: never had).Obstetric | | HistoryObstetric History not reviewed (last reviewed 05/24/2019)TOTAL: | | 3FULL: 3PRE:AB. I:AB. S:ECTOPICS:MULTIPLE:LIVINPast Medical | | HistoryPast Medical History not reviewed (last reviewed | | 05/24/2019)Other: Y - Dialysis from 02/2016 to 10/2016 with fistula in | | LT armStent: Y - cardiac stentNotes: Broke LT leg on 01/21/2016 and had | | internal fixation performed but after she was discharged, she was | | admitted back into the hospital 2 weeks later with severe infection. | | Her LT leg (from knee down) amputated 03/03/2016 from severe infection | | while in [facility].HPIEdemaReported by patient.Location: | | RLE, ABDDuration: constantOnset/Timing: started 3 months agoContext: | | prior history of edemaNotes:Getting some worse she thinks but she | | stopped her Bumex and restarted her furosemide and thinks it has helped | | and restarted her coreg at 6.25 mg bid and had been advised to | | decrease the dose.ROSPatient reports no chest pain and no palpitations; | | edema bilateral lowe rextremity. She reports shortness of breath | | (baseline) but reports no cough, no wheezing, and no coughing up blood. | | She reports arthralgias/joint pain, back pain, and neck pain; left | | amputee- in wheelchair. Skin:: cellulitis right lower extremity- better | | and [facility]. She reports tremor. She reports | | fatigue. She reports no fever, no significant weight gain, and no | | significant weight loss. She reports no abdominal pain, no nausea, no | | vomiting, no constipation, and no diarrhea. She reports no swollen | | glands.ROS as noted in the HPIPhysical ExamPatient is a 68-year-old | | female.Constitutional: General Appearance: well-nourished and | | well-developed. Level of Distress: chronically ill. Ambulation: in | | wheelchair.Psychiatric: Mental Status: active and alert.ENMT: Ears: | | EACs clear. Nose: nasal passages clear. Oropharynx: moist mucous | | membranes.Neck: Neck: supple. Lymph Nodes: no cervical LAD or | | supraclavicular LAD. Thyroid: non-tender and no enlargement.Lungs: | | Respiratory effort: dyspneic; basaeline. Auscultation: decreased breath | | sounds. Lungs: clear to auscultation bilaterally.Cardiovascular: Heart | | Auscultation: RRR. Right Pulses: diminished dorsalis pedis pulse and | | posterior tibial pulse.Abdomen: Bowel Sounds: normal bowel sounds and | | bowel sounds present. Inspection and Palpation: no tenderness or | | guarding and soft and distended. Liver: non-tender. Spleen: | | non-tender.Musculoskeletal:: Extremities: left BKA, RLE with edema 2+ | | with cellulitis.Skin: Lesion Type: location: RLE. Color: pink. | | Location/Description: well demarcated. Infectious signs: no warmth, | | fluctuance, or induration and erythema, swelling, and tenderness; | | weeping again and more tender to touch and more edema- not warm to | | touch.Foot Exam:: Right Foot: right foot toes were examined and digital | | hair absent right; Marked swelling and loss of sensation. Left Foot: | | amputated.Assessment / Plan1. Chronic kidney disease stage 5 -This care | | plan was designed by your provider to assist in improving your overall | | health and well being.Assessment: Chronic Kidney DiseaseCondition | | Status: StableGOALS for better health: achieve healthy weight, be more | | active, lower blood pressure, lower cholesterol, stress reduction, and | | modify eating habits. If you are a smoker, your physician highly | | recommends you to STOP smoking. If you need help with quitting and | | smoking cessation, talk to your physician in regards to the best | | options for you.WEIGHT should be monitored to achieve optimal | | health.EXERCISE is an important factor to attaining optimal | | health.CARDIO at low intensity. Examples of low intensity exercise | | include: walking, swimming, and stretching.NUTRITION Your provider | | advises lowering salt levels in your diet: limit packaged foods like | | pretzels, chips, pickled foods, cured meats like hawley and salami, | | canned soups, cheeses, and soy sauce. Limiting foods that taste sweet | | including: soda, candy, cake, pie, jam, canned fruit in syrup and | | cookies, limiting foods high in fat like processed meats (sausage), | | nuts, cheeses, butter, and packaged foods with hydrogenated oils. Limit | | foods high in carbs like baked goods, low fat packaged foods, | | potatoes, pizza, and sugary cereals.BLOOD PRESSURE your provider | | recommends 140 or below systolic and 90 or below diastolic as your goal | | BP. Be sure to check your BP with your home blood pressure monitor and | | record your readings in a journal to take to your doctor visits for | | them to be reviewed by your physician.REMINDERS: Check your body, | | especially legs/ankles for excess swelling (edema) and report it to | | your doctor, check your weight daily and record it in your journal to | | take with you to your doctor visits so it can be reviewed with you, | | perform routine monitoring of your blood pressure, decrease salt | | intake, regular exercise (at least 3-5 days per week and 30-45 mins per | | session), inform all physicians along with health career law clerk | | involved in your health care of your chronic kidney disease diagnosis, | | take all medications as prescribed, and try your best not to miss any | | doses. Continue to have fasting blood work performed every 3-6 months | | as directed by your physician and schedule any necessary follow up | | appointments. Report any new or worsening symptoms to your | | physician.Follow up: 3 segaleE53.5: Chronic kidney disease, stage 52. | | GwniuA17.9: Edema, unspecified* PRO BNP* [place], | | ECHOCARDIOGRAMAuthorization #: NO PA required per optum ID, case | | #[id number].Authorization Notes: This member's benefit plan did not | | require a prior authorization for this request.3. Congestive heart | | [id number]: Heart failure, unspecified4. Peripheral circulatory | | disorder associated with type 2 diabetes lymewhnsS62.9: Peripheral | | vascular disease, unspecified5. Dependence on wheel rwsiuV68.3: | | Dependence on wheelchair6. Stasis dermatitis -This Care Plan was | | designed by your provider to assist in your overall health & well | | being.Assessment: Stasis DermatitisCondition Status: stableGoals: Wear | | a wide-brimmed hat and long sleeves and pants if you are going to be | | outdoors for a long time.Avoid the sun between 10 a.m. and 4 p.m., | | which is the peak time for UV rays.Wear sunscreen on exposed skin. Make | | sure to use a broad-spectrum sunscreen that has a sun protection | | factor (SPF) of 30 or higher. Use it every day, even when it is | | cloudy.Do not use tanning booths or sunlamps.Use lip balm or cream that | | has sun protection factor (SPF) to protect your lips from getting | | sunburned.Wear sunglasses that block UV rays.Follow up: Yearly for skin | | bswroS14.2: Venous insufficiency (chronic) (peripheral)7. Amputated | | below knee -This care plan was designed by your provider to assist in | | improving your overall health and well being.Assessment: Amputated | | Below KneeCondition Status: StableGOALS for better health: achieve | | healthy weight, be more active, lower blood pressure, lower | | cholesterol, stress reduction, and modify eating habits.WEIGHT should | | be monitored to achieve optimal health.EXERCISE is an important factor | | to attaining optimal health.NUTRITION Your provider advises lowering | | salt levels in your diet: limit packaged foods like pretzels, chips, | | pickled foods, cured meats like hawley and salami, canned soups, | | cheeses, and soy sauce. Limiting foods that taste sweet including: | | soda, candy, cake, pie, jam, canned fruit in syrup and cookies, | | limiting foods high in fat like processed meats (sausage), nuts, | | cheeses, butter, and packaged foods with hydrogenated oils. Limit foods | | high in carbs like baked goods, low fat packaged foods, potatoes, | | pizza, and sugary cereals.BLOOD PRESSURE your provider recommends 140 | | or below systolic and 90 or below diastolic as your goal BP. Be sure to | | check your BP with your home blood pressure monitor and record your | | readings in a journal to take to your doctor visits for them to be | | reviewed by your physician.REMINDERS: Perform routine monitoring of | | your blood pressure, regular exercise, take all medications as | | prescribed, and try your best not to miss any doses. Continue to have | | fasting blood work performed every 3-6 months as directed by your | | physician and schedule any necessary follow up appointments. Report any | | new or worsening symptoms to your physician.Follow up: 6 | | [id number]: Acquired absence of left leg above knee8. Cardiomyopathy | | -This care plan was designed by your provider to assist in improving | | your overall health and well being.Assessment: CardiomyopathyCondition | | Status: StableGOALS for better health: achieve healthy weight, be more | | active, lower blood pressure, lower cholesterol, stress reduction, and | | modify eating habits.WEIGHT should be monitored to achieve optimal | | health.EXERCISE is an important factor to attaining optimal | | health.NUTRITION Your provider advises lowering salt levels in your | | diet: limit packaged foods like pretzels, chips, pickled foods, cured | | meats like hawley and salami, canned soups, cheeses, and soy sauce. | | Limiting foods that taste sweet including: soda, candy, cake, pie, jam, | | canned fruit in syrup and cookies, limiting foods high in fat like | | processed meats (sausage), nuts, cheeses, butter, and packaged foods | | with hydrogenated oils. Limit foods high in carbs like baked goods, low | | fat packaged foods, potatoes, pizza, and sugary cereals.BLOOD PRESSURE | | your provider recommends 140 or below systolic and 90 or below | | diastolic as your goal BP. Be sure to check your BP with your home | | blood pressure monitor and record your readings in a journal to take to | | your doctor visits for them to be reviewed by your | | physician.REMINDERS: Perform routine monitoring of your blood pressure, | | regular exercise, take all medications as prescribed, and try your | | best not to miss any doses. Continue to have fasting blood work | | performed every 3-6 months as directed by your physician and schedule | | any necessary follow up appointments. Report any new or worsening | | symptoms to your physician.Follow up: 6 sorzfoB62.9: Cardiomyopathy, | | unspecified9. Chronic obstructive lung disease -This care plan was | | designed by your provider to assist in improving your overall health | | and well being.Assessment: Chronic Obstructive Pulmonary Disease | | (COPD)Condition Status: StableGOALS for better health: achieve healthy | | weight, be more active, lower blood pressure, lower cholesterol, stress | | reduction, modify eating habits, and if you smoke, your physician | | highly advises you to QUIT SMOKING. If you need extra help with smoking | | cessation, talk to your physician regarding your options. COPD puts a | | heavy strain on your body which makes you more vulnerable to infections | | so it is of the utmost importance to stay current with your | | immunizations such as your yearly flu shot, pneumonia (Pneumo 23 & | | Prevnar 13), and shingles (Shingrix).WEIGHT should be monitored to | | achieve optimal health.EXERCISE is an important factor in obtaining | | your optimal health.NUTRITION Your provider advises a low sodium diet | | so it is very important to lower the salt levels in your diet. Limit | | packaged foods like pretzels, chips, pickled foods, cured meats like | | hawley and salami, canned soups, cheeses, and soy sauce. Excess sugar is | | not good for your overall health. Limit foods that taste sweet | | including: soda, candy, cake, pie, jam, canned fruit in syrup and | | cookies, limiting foods high in fat like processed meats (sausage), | | nuts, cheeses, butter, and packaged foods with hydrogenated oils. It is | | also very important to limit foods high in carbs like baked goods, low | | fat packaged foods, potatoes, pizza, and sugary cereals to obtain your | | optimal health.BLOOD PRESSURE your provider recommends 140 or below | | systolic and 90 or below diastolic as your goal BP. Be sure to check | | your BP with your home blood pressure monitor and record your readings | | in a journal to take to your doctor visits for them to be reviewed by | | your physician.REMINDERS: Try your best to avoid cold, hot, or humid | | weather and avoid breathing dust, fumes, perfumes/cologne and smoke | | because your COPD symptoms may be worsened (exacerbated). Exercise on a | | regular basis when your physically able to, take all your medication | | (including your inhalers and nebulizer treatments) as prescribed by | | your physician, and try your best not to miss any doses. Continue to | | have fasting blood work performed every 3-6 months as directed by your | | physician and schedule any necessary follow up appointments. Report any | | new or worsening symptoms to your physician.Follow up: 6 igjatzW12.9: | | Chronic obstructive pulmonary disease, [id number]. Diabetic | | neuropathy -This care plan was designed by your provider to assist in | | improving your overall health and well being.Assessment: Diabetic | | NeuropathyCondition Status: StableGOALS for better health: achieve | | healthy weight, be more active, improve mobility, lower blood pressure, | | lower cholesterol, and modify eating habits.WEIGHT should be monitored | | to achieve optimal health.EXERCISE is an important factor to attaining | | optimal health.CARDIO at low intensity. Examples of low intensity | | exercise include: walking, swimming, and stretching.NUTRITION Your | | provider advises lowering salt levels in your diet: limit packaged | | foods like pretzels, chips, pickled foods, cured meats like hawley and | | salami, canned soups, cheeses, and soy sauce. Limiting foods that taste | | sweet including: soda, candy, cake, pie, jam, canned fruit in syrup | | and cookies, limiting foods high in fat like processed meats (sausage), | | nuts, cheeses, butter, and packaged foods with hydrogenated oils. | | Limit foods high in carbs like baked goods, low fat packaged foods, | | potatoes, pizza, and sugary cereals.BLOOD PRESSURE your provider | | recommends 140 or below systolic and 90 or below diastolic as your goal | | BP.RECOMMENDATIONS: Instructed in the correct use of a glucometer, | | advised to check fasting glucose once daily, follow a low cholesterol | | diet, get yearly flu shots before flu season, stay current on your | | other immunizations such as pneumonia (Pneumo 23 and Prevnar 13) & | | shingles (Shingrix), perform routine monitoring of your blood pressure | | with your home blood pressure cuff, exercise regularly, take medication | | as prescribed, and try your best not to miss any medication doses. | | Continue to have your HgA1c checked every 3 months and fasting blood | | work performed every 3-6 months as directed by your physician and | | schedule any necessary follow up appointments.Follow up: 6 | | [id number]: Type 2 diabetes mellitus with diabetic neuropathy, | | [id number]. Essential hypertension -This care plan was designed by | | your provider to assist in improving your overall health and well | | being.Assessment: HypertensionCondition Status: StableGOALS for better | | health: achieve healthy weight, be more active, lower blood pressure, | | lower cholesterol, stress reduction, and modify eating habits.WEIGHT | | should be monitored to achieve optimal health.EXERCISE is an important | | factor to attaining optimal health.NUTRITION Your provider advises | | lowering salt levels in your diet: limit packaged foods like pretzels, | | chips, pickled foods, cured meats like hawley and salami, canned soups, | | cheeses, and soy sauce. Limiting foods that taste sweet including: | | soda, candy, cake, pie, jam, canned fruit in syrup and cookies, | | limiting foods high in fat like processed meats (sausage), nuts, | | cheeses, butter, and packaged foods with hydrogenated oils. Limit foods | | high in carbs like baked goods, low fat packaged foods, potatoes, | | pizza, and sugary cereals.BLOOD PRESSURE your provider recommends 140 | | or below systolic and 90 or below diastolic as your goal BP. Be sure to | | check your BP with your home blood pressure monitor and record your | | readings in a journal to take to your doctor visits for them to be | | reviewed by your physician.REMINDERS: Perform routine monitoring of | | your blood pressure, regular exercise, take all medications as | | prescribed, and try your best not to miss any doses. Continue to have | | fasting blood work performed every 3-6 months as directed by your | | physician and schedule any necessary follow up appointments. Report any | | new or worsening symptoms to your physician.Follow up: 6 iluvpsF91: | | Essential (primary) zhrgirjapsvh88. Hepatitis C antibody test positive | | -This Care Plan was designed by your Provider to assist in improving | | your overall health & well beingAssessment: Hepatitis CCondition | | Status: stableGOALS: Be safe with medicines. If your doctor prescribes | | antiviral medicine, take it exactly as prescribed. Call your doctor if | | you think you are having a problem with your medicine.Do not drink | | alcohol. Alcohol can damage the liver. Tell your doctor if you need | | help to quit. Counseling, support groups, and sometimes medicines can | | help you stay sober.Do not take drugs or herbal medicines. They can | | make liver problems worse.Make sure your doctor knows all of the | | medicines you take. Some medicines, such as acetaminophen (Tylenol), | | can make liver problems worse. Do not take any new medicines unless | | your doctor tells you to. This includes vhji-ros-upsncrr | | medicines.Maintain a healthy lifestyle. Get plenty of exercise if you | | feel up to it. Eat a healthy diet.Drink plenty of fluids, enough so | | that your urine is light yellow or clear like water. If you have | | kidney, heart, or liver disease and have to limit fluids, talk with | | your doctor before you increase the amount of fluids you drink.Get the | | vaccines (if you have not already) to protect yourself from hepatitis A | | and hepatitis B, influenza, and pneumococcus.The infection can make | | you itch. Keep cool and stay out of the sun. Try to wear cotton | | clothing. Talk to your doctor about using ibpj-mhg-fshdyvk medicines | | for itching. These include diphenhydramine (Benadryl) and | | chlorpheniramine (Chlor-Trimeton). Follow the instructions on the | | label.If you feel depressed, talk to your doctor about treatment. Many | | people who have long-term illnesses get depressed. Keep in mind that | | antiviral medicine can make depression worse.Follow up: 6 ooqlkfP95.19: | | Personal history of other infectious and parasitic grmthuiz98. Lumbar | | radiculopathy -This care plan was designed by your provider to assist | | in improving your overall health and well being.Assessment: lumbar | | radiculopathyCondition Status: StableGOALS for better health: achieve | | healthy weight, be more active, improve mobility, lower blood pressure, | | lower cholesterol, and modify eating habits.WEIGHT should be monitored | | to achieve optimal health.EXERCISE is an important factor to attaining | | optimal health.CARDIO at low intensity. Some examples of low intensity | | exercise include: walking, swimming, and stretching.NUTRITION Your | | provider advises staying hydrated. The [place] [employer] determined | | men need roughly 3 liters (about 13 cups) of total beverages per day | | and women need about 2.2 liters (about 9 cups) of total beverages per | | day. Your provider also advises lowering salt levels in your diet.BLOOD | | PRESSURE your provider recommends 140 or below systolic and 90 or | | below diastolic as your goal BP.REMINDERS: Alternate heat & ice as | | needed for pain, rest when necessary, try not to exceed your | | limitations, exercise when possible, and take medication as prescribed, | | try your best not to miss any doses. Try to get the recommended amount | | of sleep which is 7-8 hours per night.Follow up: 3 pqguloJ39.16: | | Radiculopathy, lumbar oviijf49. Mixed hyperlipidemia -This care plan | | was designed by your provider to assist in improving your overall | | health and well being.Assessment: HyperlipidemiaCondition Status: | | StableGOALS for better health: achieve healthy weight, be more active, | | lower blood pressure, lower cholesterol, and modify eating | | habits.WEIGHT should be monitored to achieve optimal health.EXERCISE is | | an important factor to attaining optimal health.NUTRITION Your | | provider advises lowering salt levels in your diet: limit packaged | | foods like pretzels, chips, pickled foods, cured meats like hawley and | | salami, canned soups, cheeses, and soy sauce. Limiting foods that taste | | sweet including: soda, candy, cake, pie, jam, canned fruit in syrup | | and cookies, limiting foods high in fat like processed meats (sausage), | | nuts, cheeses, butter, and packaged foods with hydrogenated oils. | | Limit foods high in carbs like backed goods, low fat packaged foods, | | potatoes, pizza, and sugary cereals.REMINDERS: Continue to have fasting | | blood work performed every 3-6 months as directed by your physician. | | Take your medications as directed by your physician trying your best | | not to miss any doses and schedule any necessary follow up | | appointments.Follow up: 6 yosieoK16.2: Mixed qgvqooyrycwdhq87. | | Postmenopausal osteoporosis -This care plan was designed by your | | provider to assist in improving your overall health and well | | being.Assessment: Postmenopausal OsteoporosisCondition Status: | | StableGOALS for better health: achieve healthy weight, be more active, | | lower blood pressure, lower cholesterol, and modify eating | | habits.WEIGHT should be monitored to achieve optimal health.EXERCISE is | | an important factor to attaining optimal health.NUTRITION Your | | provider advises lowering salt levels in your diet: limit packaged | | foods like pretzels, chips, pickled foods, cured meats like hawley and | | salami, canned soups, cheeses, and soy sauce. Limiting foods that taste | | sweet including: soda, candy, cake, pie, jam, canned fruit in syrup | | and cookies, limiting foods high in fat like processed meats (sausage), | | nuts, cheeses, butter, and packaged foods with hydrogenated oils. | | Limit foods high in carbs like baked goods, low fat packaged foods, | | potatoes, pizza, and sugary cereals.BLOOD PRESSURE your provider | | recommends 140 or below systolic and 90 or below diastolic as your goal | | BP.RECOMMENDATIONS given include: continue to have Bone Density test | | performed every 2 years, perform weight-bearing exercise (i.e. walking) | | 3-5 days a week for at least 30 mins at a time, Vitamin D | | supplementation, avoid alcohol, take medications as directed by your | | physician trying not to miss any doses, follow up with physician as | | directed, and report any new or worsening symptoms to your physician as | | soon as possible.Follow up: 6 qcfjjsV20.0: Age-related osteoporosis | | without current pathological psfazcby55. Tobacco userZ72.0: Tobacco | | use17. Tremor -This care plan was designed by your provider to assist | | in improving your overall health and well being.Assessment: | | TremorCondition Status: StableGOALS for better health: achieve healthy | | weight, be more active, lower blood pressure, lower cholesterol, and | | modify eating habits.WEIGHT should be monitored to achieve optimal | | health.EXERCISE is an important factor to attaining optimal | | health.NUTRITION Your provider advises lowering salt levels in your | | diet: limit packaged foods like pretzels, chips, pickled foods, cured | | meats like hawley and salami, canned soups, cheeses, and soy sauce. | | Limiting foods that taste sweet including: soda, candy, cake, pie, jam, | | canned fruit in syrup and cookies, limiting foods high in fat like | | processed meats (sausage), nuts, cheeses, butter, and packaged foods | | with hydrogenated oils. Limit foods high in carbs like backed goods, | | low fat packaged foods, potatoes, pizza, and sugary cereals.REMINDERS: | | Continue to have fasting blood work performed every 3-6 months as | | directed by your physician. Take your medications as directed by your | | physician trying your best not to miss any doses and schedule any | | necessary follow up appointments.Follow up: 6 cqlfzwQ65.1: Tremor, | | ddncbjutvpm00. Type II diabetes mellitus uncontrolled -This care plan | | was designed by your provider to assist in improving your overall | | health and well being.Assessment: Type 2 DMCondition Status: | | StableGOALS for better health: achieve healthy weight, be more active, | | improve mobility, lower blood pressure, lower cholesterol, and modify | | eating habits.WEIGHT should be monitored to achieve optimal | | health.EXERCISE is an important factor to attaining optimal | | health.CARDIO at low intensity. Examples of low intensity exercise | | include: walking, swimming, and stretching.NUTRITION Your provider | | advises lowering salt levels in your diet: limit packaged foods like | | pretzels, chips, pickled foods, cured meats like hawley and salami, | | canned soups, cheeses, and soy sauce. Limiting foods that taste sweet | | including: soda, candy, cake, pie, jam, canned fruit in syrup and | | cookies, limiting foods high in fat like processed meats (sausage), | | nuts, cheeses, butter, and packaged foods with hydrogenated oils. Limit | | foods high in carbs like baked goods, low fat packaged foods, | | potatoes, pizza, and sugary cereals.BLOOD PRESSURE your provider | | recommends 140 or below systolic and 90 or below diastolic as your goal | | BP.RECOMMENDATIONS: Instructed in the correct use of a glucometer, | | advised to check fasting glucose once daily, follow a low cholesterol | | diet, get yearly flu shots before flu season, stay current on your | | other immunizations such as pneumonia (Pneumo 23 and Prevnar 13) & | | shingles (Shingrix), perform routine monitoring of your blood pressure | | with your home blood pressure cuff, exercise regularly, take medication | | as prescribed, and try your best not to miss any medication doses. | | Continue to have your HgA1c checked every 3 months and fasting blood | | work performed every 3-6 months as directed by your physician and | | schedule any necessary follow up appointments.Follow up: 6 | | dfoatzK19.40: Type 2 diabetes mellitus with diabetic neuropathy, | | rixxbofredb40. Vitamin D deficiency -This care plan was designed by | | your provider to assist in improving your overall health and well | | being.Assessment: Vitamin DeficiencyCondition Status: StableGOALS for | | better health: achieve healthy weight, be more active, lower blood | | pressure, lower cholesterol, and modify eating habits.WEIGHT should be | | monitored to achieve optimal health.EXERCISE is an important factor to | | attaining optimal health.NUTRITION Your provider advises increases your | | intake of vitamin rich foods such as chicken liver, greens (such as | | beans, broccoli, etc). Limit foods high in carbs like baked goods, low | | fat packaged foods, potatoes, pizza, and sugary cereals.REMINDERS: | | Continue to have fasting blood work performed every 3-6 months as | | directed by your physician. Take your medications or OTC suppliments as | | directed by your physician trying your best not to miss any doses and | | schedule any necessary follow up appointments. Report any new or | | worsening symptoms to your doctor.Follow up: 6 ytpxlcY57.9: Vitamin D | | deficiency, unspecifiedPatient InstructionsCall for appointment or go | | to ER or [facility] if symptoms worsenReturn to Office* to see SHARI DURHAM, | | TRAVIS for Medicare Wellness at [facility] on or around | | 12/17/2019Amendment Sign-OffEncounter signed-off by SHARI DURHAM, | | TRAVIS, 08/17/2019. | + + + +---+ + +---+ + | Outpatien | | [facility] | | | [facility] | t | | [facility] | 0 | | [facility] | | | | | 12:00:00 | | Hot | | | | | 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 | | [facility] | | | | | | | Hospital | + +---+ + +---+ + + + | AGE TIME PATIENT REPORTED: 68FACILITY / VISIT TYPE: [id number] | + + + + + + +---+ + | OUTPATIEN | Admitter: | [facility] | | | National | | T | DR Thais Weaver | 0 | | [facility] | | | JAZZMINE | Cardiolog | 09:05:00 | | Medical | | | WES | y | 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 | | Center | | | | Associate | | | Clinics | | | | s | | | | + + + + +---+ + | Outpatien | Attender: | [facility] | | | [facility] | | t | JON[facility] | [facility] | 0 | | [facility] | | | HARDINAdm | | 12:00:00 | | Hot | | | itter: | | 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 - | | [facility] | | | JONO | | | | Hospital | | | HARDINRef | | 0 | | | | | errer: | | 11:59:00 | | | | | [place] | | 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 | | | | | [facility] | | | | | + + + + +---+ + + + | READMISSION RISK SCORE: 3AGE TIME PATIENT REPORTED: 68FACILITY / VISIT | | TYPE: [id number] COMPLAINT:FIND:PT:PATIENT:NOM:REPORTED: | + + + + + + +---+ + | Outpatien | Attender: | [facility] | | | [facility] | | t | JON[facility] | [facility] | 9 | | [facility] | | | HARDINAdm | | 12:00:00 | | Hot | | | itter: | | 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 - | | [facility] | | | JONO | | | | Hospital | | | HARDINRef | | 9 | | | | | errer: | | 11:59:00 | | | | | MARLENA | | 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 | | | | | JEOVANNY | | | | | + + + + +---+ + + + | READMISSION RISK SCORE: 3AGE TIME PATIENT REPORTED: 68FACILITY / VISIT | | TYPE: [id number] COMPLAINT:FIND:PT:PATIENT:NOM:REPORTED: | + + + + + + +---+ + | Outpatien | Attender: | [facility] | | | [facility] | | t | JON[facility] | [facility] | 9 | | [facility] | | | HARDINAdm | | 12:00:00 | | Hot | | | itter: | | 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 - | | [facility] | | | JONO | | | | Hospital | | | GARCIA | | 9 | | | | | | | 11:59:00 | | | | | | | 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 | | | + + + + +---+ + + + | READMISSION RISK SCORE: 3AGE TIME PATIENT REPORTED: 68FACILITY / VISIT | | TYPE: [id number] COMPLAINT:FIND:PT:PATIENT:NOM:REPORTED: | + + + + + + +---+ + | Outpatien | Attender: | [facility] | | | [facility] | | t | JON[facility] | [facility] | 9 | | [facility] | | | HARDINAdm | | 12:00:00 | | Hot | | | itter: | | 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 - | | [facility] | | | J[facility] | | | | Hospital | | | GARCIA | | 9 | | | | | | | 11:59:00 | | | | | | | 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 | | | + + + + +---+ + + + | READMISSION RISK SCORE: 3AGE TIME PATIENT REPORTED: 68FACILITY / VISIT | | TYPE: [id number] COMPLAINT:FIND:PT:PATIENT:NOM:REPORTED: | + + +-----+ + + +---+ + | 102 | Attender: | [phone] | | | [facility] | | | JONO | [phone] | 9 | | [facility] | | | HARDINAdm | 232 | 12:00:00 | | Hot | | | itter: | | ADENIKE SHEAR GRINDER OPERATOR - | | [facility] | | | JON[facility] | | | | Hospital | | | HARDINRef | | 9 | | | | | errer: | | 11:59:00 | | | | | MARLENA | | 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 | | | | | JEOVANNY | | | | | +-----+ + + +---+ + + + | [facility] [address] [place] [address] | | [place] [address]Nwlzwnm Name: ANDIE BEAN RCSN: [id number]: | | [id number]: 1Provider: ELVIE HerrmannOUND AND | | HYPERBARIC CLINIC NOTEDate of Service: 06/08/2019HISTORY:The patient | | is here for followup of chronic venous ulceration on right lowerleg. | | The patient's leg looks much better than it did last week. There is | | lesserythema.The patient's wound was debrided today with a #15 | | disposable scalpel goingthrough the epidermal and dermal layers, | | removing fibrinous exudate over an areaof 1.6 sq cm. The patient has | | numerous satellite lesions as well.PLAN:1. At this time is to continue | | to dress her wounds with mupirocin. The patientis to offload and | | elevate as much as possible.2. The patient is to follow up with us in 1 | | week. She is to call if she has anyconcerns in the | | meantime.Measurements and photographs are in the [employer] | | Record and Iagree with the nursing documentation from this date of | | service.DIAGNOSES:1. Chronic venous ulcer, right medial lower leg with | | multiple satellite lesions,limited to breakdown of skin.2. Chronic | | venous hypertension with secondary lymphedema and swelling, rightleg.3. | | Cellulitis, right leg.4. Status post left xnvjm-kzj-qmwi amputation.5. | | Congestive heart failure.6. Hypertension.7. Coronary artery disease.8. | | Myocardial infarction.9. Chronic obstructive pulmonary disease, | | requiring oxygen at night.10. Chronic kidney disease.11. Tobacco | | abuse.12. Diabetic peripheral neuropathy.13. Type 2 diabetes.Jono Zapata | | Alma MDmedq D: | | [id number] V: [id number] | + + + + + + +---+ + | OUTPATIEN | Admitter: | [facility] | | | [facility] | | T | SAHRI | [facility] | 9 | | r | | | [place] | [facility] | 06:06:00 | | Physician | | | | | 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 | | s Hot | | | | | | | [place] | | | | | | | [place] | + + + + +---+ + | OUTPATIEN | Admitter: | Owen | | | [facility] | | T | SHARI | Family | 9 | | r | | | AALIYAH | Medicine | 04:25:00 | | Physician | | | | | 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 | | s Hot | | | | | | | [place] | | | | | | | [place] | + + + + +---+ + | Outpatien | | [facility] | | | [facility] | | t | | [facility] | 9 | | [facility] | | | | | 12:00:00 | | Hot | | | | | 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 | | [facility] | | | | | | | Hospital | + + + + +---+ + + + | AGE TIME PATIENT REPORTED: 68FACILITY / VISIT TYPE: [id number] | + + + + + + +---+ + | OUTPATIEN | Admitter: | [facility] | | | [facility] | | T | SHARI | Family | 9 | | r | | | AALIYAH | Medicine | 12:48:00 | | Physician | | | | | PM CDT | | s Hot | | | | | | | [place] | | | | | | | [facility] | + + + + +---+ + | OUTPATIEN | Admitter: | [place] | | | [facility] | | T | SHARI | Family | 9 | | r | | | [place] | Medicine | 02:39:00 | | Physician | | | | | PM CDT | | s Hot | | | | | | | [place] | | | | | | | [place] | + + + + +---+ + | OUTPATIEN | Admitter: | [place] | | | [facility] | | T | SHARI | Family | 9 | | r | | | [place] | [facility] | 02:39:00 | | Physician | | | | | PM CDT | | s Hot | | | | | | | [place] | | | | | | | [facility] | + + + + +---+ + | OUTPATIEN | Admitter: | [place] | | | [facility] | | T | SHARI | Family | 9 | | r | | | [place] | [facility] | 02:27:00 | | Physician | | | | | PM CDT | | s Hot | | | | | | | [place] | | | | | | | [place] | + + + + +---+ + | Outpatien | Attender: | [facility] | | | [facility] | | t | JON[facility] | [facility] | 9 | | [facility] | | | HARDKRISTELdm | | 12:00:00 | | Hot | | | itter: | | ADENIKE WHITNEYT - | | Meg | | | JONO | | | | Hospital | | | HARDINRef | | 9 | | | | | errer: | | 11:59:00 | | | | | MARLENA | | PM CDT | | | | | [place]NY | | | | | + + + + +---+ + + + | READMISSION RISK SCORE: 3AGE TIME PATIENT REPORTED: 68FACILITY / VISIT | | TYPE: [id number] COMPLAINT:FIND:PT:PATIENT:NOM:REPORTED: | + + + + + + +---+ + | OUTPATIEN | Admitter: | [facility] | | | [place] | | T | SHARI | Family | 9 | | r | | | AALIYAH | Medicine | 12:29:00 | | Physician | | | | | PM CDT | | s Ezio | | | | | | | Meg | | | | | | | Sadaf | + + + + +---+ + | OUTPATIEN | Admitter: | [place] | | | [facility] | | T | SHARI | Family | 9 | | r | | | AALIYAH | Medicine | 12:28:00 | | Physician | | | | | PM CDT | | s Hot | | | | | | | [place] | | | | | | | [place] | + + + + +---+ + | OUTPATIEN | Admitter: | [place] | | | [facility] | | T | SHARI | Family | 9 | | r | | | [place] | [facility] | 12:07:00 | | Physician | | | | | PM CDT | | s Hot | | | | | | | [place] | | | | | | | Sadaf | + + + + +---+ + | OUTPATIEN | Admitter: | [place] | | | [facility] | | T | SHARI | Family | 9 | | r | | | AALIYAH | Medicine | 10:57:00 | | Physician | | | | | AM CDT | | s Hot | | | | | | | [place] | | | | | | | [place] | + + + + +---+ + | OUTPATIEN | Admitter: | [place] | | | [facility] | | T | SHARI | Family | 9 | | r | | | AALIYAH | Medicine | 10:57:00 | | Physician | | | | | AM CDT | | s Hot | | | | | | | [place] | | | | | | | [place] | + + + + +---+ + | OUTPATIEN | Admitter: | [place] | | | [facility] | | T | SHARI | Family | 9 | | r | | | [place] | Medicine | :01: | | Physician | | | | | AM CDT | | s Hot | | | | | | | [place] | | | | | | | [place] | + + + + +---+ + | OUTPATIEN | Admitter: | [place] | | | [facility] | | T | SHARI | Family | 9 | | r | | | [place] | Medicine | 09:05:00 | | Physician | | | | | AM CDT | | s Hot | | | | | | | [place] | | | | | | | Sadaf | + + + + +---+ + | Outpatien | Attender: | [place] | | | [facility] | | t | SHARI | Family | 9 | | r | | | [facility] | Medicine | 09:01:00 | | Physician | | | dmitter: | | AM CDT - | | s Hot | | | SHARI | | | | Meg | | | AALIYAH | | 9 | | Sadaf | | | | | 09:57:00 | | | | | | | AM CDT | | | + + + + +---+ + + + | PatientName : ANDIE BEAN (68yo, F) ID# [id number]. Date/Time : | | 05/24/2019 09:00AMDOB : [facility] : [facility] | | MedicineProvider : TRAVIS OMALLEYInsuranceMed Primary: UNITED | | HEALTHCARE (MEDICARE REPLACEMENT/ADVANTAGE - PPO)Insurance # : | | [id number]/Group # : [id number] : JONO RHOADESReferrdaniel Provider | | Name : JONO RHOADESPrescription: OPTUMRX - Member is eligible. | | detailsChief ComplaintRight leg pain, Follow-UpPatient's Care | | TeamPrimary Care Provider (Primary Insurance): JONO RHOADES: [address], [place] [address], , Fax ([phone] | | [phone] Provider (Primary Insurance): JONO RHOADES: [address], [place] [address], , Nurse | | Practitioner: SHARI DURHAM CNSPrimary Care Provider: JONO | | Adonis RHOADES's [facility] | | (ERX): [address], [place] [address], , Fax | | VitalsHt:5 ft 5 in (165.1 cm) 05/24/2019 09:08 amWt:Not | | Performed - Not tolerated 05/24/2019 09:08 amBP:126/78 sitting R arm | | 05/24/2019 09:09 muK4Dll:98% Room Air at Rest 05/24/2019 09:08 | | amPulse:85 bpm 05/24/2019 09:08 amAllergiesReviewed AllergiesPRAVACHOL: | | Myalgias (muscle pain), Other - FatigueMedicationsReviewed | | MedicationsName: Adult Aspirin Regimen 81 mg tablet,delayed release | | Take 1 tablet(s) every day by oral route.Date: 09/03/18 | | enteredSource: Kathy ConnerName: Anoro Ellipta 62.5 mcg-25 | | mcg/actuation powder for inhalation INHALE 1 PUFF ONCE EACH DAY | | THANK YOU Date: 10/22/18 filledSource: PRESCRIPTION SOLUTIONSName: | | atorvastatin 40 mg tablet Take 1 tablet(s) every day by oral | | route.Date: 03/14/19 filledSource: PRESCRIPTION SOLUTIONSName: | | Bactrim 400 mg-80 mg tablet Take 1 tablet(s) every 12 hours by oral | | route for 10 days.Date: 05/03/19 prescribedSource: SHARI DURHAM, | | CNSName: carvedilol 6.25 mg tablet Take 1 tablet(s) twice a day by oral | | route.Date: 04/26/19 filledSource: PRESCRIPTION SOLUTIONSName: | | ergocalciferol (vitamin D2) 50,000 unit capsule Take 1 capsule(s) every | | week by oral route.Date: 05/09/19 changedSource: SHALA JAIN, | | CNPName: furosemide 40 mg tablet Take 1 tablet(s) twice a day by oral | | route.Date: 05/09/19 filledSource: PRESCRIPTION SOLUTIONSName: | | gabapentin 600 mg tablet Take 2 tablet(s) 3 times a day by oral | | route.Date: 05/10/19 filledSource: PRESCRIPTION SOLUTIONSName: | | HumaLOG KwikPen (U-100) Insulin 100 unit/mL subcutaneous sliding scale | | with 5 units being most injected PRNDate: 06/01/17 filledSource: | | PRESCRIPTION SOLUTIONSName: Lantus Solostar U-100 Insulin 100 unit/mL | | (3 mL) subcutaneous pen Inject 15 unit(s) every day by subcutaneous | | route.Date: 03/21/19 filledSource: PRESCRIPTION SOLUTIONSName: Lantus | | U-100 Insulin 100 unit/mL subcutaneous solutionDate: 04/20/19 | | filledSource: PRESCRIPTION SOLUTIONSName: omeprazole 20 mg | | capsule,delayed release Take 1 capsule(s) every day by oral route.Date: | | 05/09/19 filledSource: PRESCRIPTION SOLUTIONSName: ProAir HFA 90 | | mcg/actuation aerosol inhaler Inhale 2 puff(s) every 4 hours by | | inhalation route.Date: 08/27/17 filledSource: PRESCRIPTION | | SOLUTIONSName: Questran 4 gram oral powder Take 1 scoop(s) every day by | | oral route.Note: for diarrheaDate: 09/17/18 prescribedSource: | | Ellen SOFIA: sodium bicarbonate 650 mg tablet Take 1 | | tablet(s) every day by oral route.Date: 04/12/19 enteredSource: | | Meghan MorillordName: sulfamethoxazole 800 mg-trimethoprim 160 mg | | tabletDate: 05/03/19 filledSource: PRESCRIPTION SOLUTIONSName: | | TRUEplus Pen Needle 31 gauge x 10/09"Date: 03/03/17 filledSource: | | PRESCRIPTION SOLUTIONSName: Tums 2 - 400mg tabs with every mealDate: | | 04/12/19 enteredSource: Meghan ShoemakerVaccinesReviewed | | VaccinesVaccine Type: influenza, high dose seasonalDate: 04/12/19Amt.: | | 0.5 mLRoute: IntramuscularSite: Deltoid, RightNDC: [id number] #: | | [id number].: Sanofi PasteurExp. Date: 11/08/19Date on VIS: 03/10/19VIS | | Given: 04/12/19Vaccinator: Meghan MolnairdVaccine Type: influenza, | | high dose seasonalDate: 04/21/18Amt.: 0.5 mLRoute: IntramuscularSite: | | Deltoid, RightNDC:Lot #: [id number].: Sanofi PasteurExp. Date: | | 10/23/18Date on VIS: 03/02/15VIS Given: 04/21/18Vaccinator: Shari | | Aaliyah, CNSVaccine Type: influenza, high dose seasonalDate: | | 06/02/17mt.:Route:Site:NDC:Lot #:[id number].:Exp. Date:Date on VIS:VIS | | Given:Account Solutions Analyst:Vaccine Type: influenza, injectable, quadrivalentDate: | | 06/02/17mt.:Route:Site: [facility], RightNDC:Lot #: [id number].: | | SeqirusExp. Date: 01/23/18Date on VIS:VIS Given: | | 06/02/17Vaccinator:Vaccine Type: pneumococcal conjugate PCV 13Date: | | 11/09/17Amt.: 0.5 mLRoute: IntramuscularSite: Deltoid, RightNDC:Lot #: | | [id number].: Other manufacturerExp. Date: 09/25/19Date on VIS: | | 05/31/15VIS Given: 11/09/17Vaccinator: Meghan MolnairdVaccine Type: | | pneumococcal polysaccharide [id number]: 05/27/16Amt.:Route:Site:NDC:Lot | | #:Mfr.:Exp. Date:Date on VIS:VIS Given:Account Solutions Analyst:ProblemsReviewed | | Problems* Type II diabetes mellitus uncontrolled - Onset: 10/03/2017* | | Diabetic neuropathy* Vitamin D deficiency - Onset: 06/16/2018* Mixed | | hyperlipidemia - Onset: 10/03/2017* Tobacco user - Onset: 10/03/2017* | | Essential hypertension* Cardiomyopathy - Onset: 2017* Stasis | | dermatitis - Onset: 2017* Chronic obstructive lung disease - | | Onset: 08/27/2017* Chronic kidney disease stage 4 - Onset: 09/10/2018* | | Lumbar radiculopathy* Postmenopausal osteoporosis* Tremor* Hepatitis C | | antibody test positive - Onset: 12/28/2017* Amputated below knee - | | Onset: 10/03/2017Family HistoryReviewed Family HistoryBrother- Heart | | disease- all 3 of this- Type 2 diabetes mellitusMother- Pulmonary | | emphysema- Disorder of thyroid glandPaternal Grandmother- Malignant | | tumor of breastSister- Malignant tumor of breast- Type 2 diabetes | | mellitusSocial HistoryDiscussed Social HistoryFamily Medicine and | | Medical Wellness Visit/IPPEAble to Care for Self: NLive alone or with | | others?: with othersAdvance directive: Marycruz you currently employed?: | | NEducation: 12Occupation: DisabledNumber of children: 3Guns present in | | home: NAlcohol intake: NoneCaffeine intake: OccasionalIllicit drugs: | | NODiet: DiabeticExercise level: NoneHard of hearing or deaf in one or | | both ears?: NLegally blind in one or both eyes?: NSexual orientation: | | HeterosexualSmoke alarm in home: YTobacco Smoking Status: Current every | | day smokerChewing tobacco: noneSmoker (1 /2 PPD)Has smoked since age: | | 25Tobacco-years of use: 25Passive smoke exposure?: YSeat belts used | | routinely: YSunscreen used routinely: NIs the patient ambulatory?: Yes: | | limited self-mobility with assistive device(s); generally relies on | | wheeled mobilityMost Recent Tobacco Use Screenin12/15/2018Tobacco | | cessation counseling provided date: 12/15/2018Single or multi-level | | home/work?: single level homeMarital status: MarriedSurgical | | HistoryReviewed Surgical History* Cholecystectomy* Amputation - | | 02/25/2016 - LT leg amputation above the knee* Colonoscopy - | | 02/24/2014* Stent - 07/27/2006 - cardiac stent* delivery - | | 07/27/1975GYN 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 I:AB. S:ECTOPICS:MULTIPLE:LIVINPast Medical | | HistoryReviewed Past Medical HistoryOther: Y - Dialysis from 02/2016 to | | 10/2016 with fistula in LT armStent: Y - cardiac stentNotes: Broke LT | | leg on 01/21/2016 and had internal fixation performed but after she was | | discharged, she was admitted back into the hospital 2 weeks later with | | severe infection. Her LT leg (from knee down) amputated 03/03/2016 | | from severe infection while in [place] | | Hospital.HPICellulitisReported by patient.Location: right legsQuality: | | painful; red; drainingSeverity: improvingDuration: [id number]: | | abrupt onsetAggravating factors: nothing makes it worseSymptoms: no | | fever; no nausea; no vomiting; swellingWandas swelling has improved but | | the sores on her leg have worsened and so has the pain. She is getting | | very little sleep at nightROSPatient reports shortness of breath | | (baseline). She reports arthralgias/joint pain, back pain, neck pain, | | and difficulty walking; left amputee. Skin:: cellulitis right lower | | extremity- a little less red and less weeping-but more painful to touch | | and slighly more edema. She reports tremor. She reports fatigue. She | | reports no fever, no significant weight gain, and no significant weight | | loss. She reports no chest pain. She reports no swollen glands.ROS as | | noted in the HPIPhysical ExamPatient is a 68-year-old | | female.Constitutional: General Appearance: well-nourished and | | well-developed. Level of Distress: chronically ill. Ambulation: in | | wheelchair.Psychiatric: Mental Status: active and alert.Lungs: | | Auscultation: decreased breath sounds.Cardiovascular: Heart | | Auscultation: RRR. Right Pulses: diminished dorsalis pedis pulse and | | posterior tibial pulse.Musculoskeletal:: Extremities: left BKA, RLE | | with edema 2+ with cellulitis.Neurologic: Sensation Right Foot: right | | facial weakness with + [place] sign-improved.Skin: Lesion Type: location: | | RLE. Color: pink. Location/Description: well demarcated. Infectious | | signs: no warmth, fluctuance, induration, or lymphangitic streaking and | | erythema, swelling, and tenderness; weeping again and more tender to | | touch and more edema- not warm to touch.Foot Exam:: Right Foot: right | | foot toes were examined and digital hair absent right; Marked swelling | | and loss of sensation. Left Foot: amputated.Assessment / Plan1. Pain in | | right lower limbM79.604: Pain in right leg* US, DUPLEX, VENOUS, | | EXTREMITY, UNILATERAL* WOUND CARE REFERRAL -Schedule Within: provider's | | discretion2. Poor peripheral uznqsdaamkxQ08.9: Peripheral vascular | | disease, unspecified* (DHARA) ANKLE BRACHIAL INDEXPatient | | Instructionssent for venous doppler now and DHARA in am as well as appt | | with Diabetic wound clinic in am- advised her to take her to | | FCW or ER if symptoms worsened before going to Wound ClinicReturn to | | Office* ultrasound for Ultrasound at [facility] on | | 06/01/2019 at 01:45 [facility] Sign-OffEncounter signed-off by SHARI | | TRAVIS DURHAM, 05/27/2019. | + + + + + + +---+ + | OUTPATIEN | Admitter: | [place] | | [facility] | | T | SHARI | Family | 9 | | r | | | [place] | Medicine | 09:20:00 | | Physician | | | | | AM CDT | | [facility] | | | | | | | [place] | | | | | | | [place] | + + + + +---+ + | OUTPATIEN | Admitter: | [place] | | | [facility] | | T | SHARI | Family | 9 | | r | | | [place] | Medicine | 04:35:00 | | Physician | | | | | PM CDT | | s Hot | | | | | | | [place] | | | | | | | [place] | + + + + +---+ + | OUTPATIEN | Admitter: | [place] | | | [facility] | | T | SHARI | Family | 9 | | r | | | [place] | Medicine | 11:25: | | Physician | | | | | AM CDT | | s Hot | | | | | | | [place] | | | | | | | [place] | + + + + +---+ + | OUTPATIEN | Admitter: | [place] | | | [facility] | | T | SHARI | Family | 9 | | r | | | [place] | Medicine | 10:33:00 | | Physician | | | | | AM CDT | | s Hot | | | | | | | [place] | | | | | | | [place] | + + + + +---+ + | OUTPATIEN | Admitter: | [place] | | | [facility] | | T | SHARI | Family | 9 | | r | | | [facility] | Medicine | :: | | Physician | | | | | AM CDT | | s Hot | | | | | | | [place] | | | | | | | [place] | + + + + +---+ + | OUTPATIEN | Admitter: | [place] | | | [facility] | | T | SHARI | Family | 9 | | r | | | [facility] | Medicine | :: | | Physician | | | | | AM CDT | | s Hot | | | | | | | [place] | | | | | | | [place] | + + + + +---+ + | Outpatien | Attender: | [place] | | | [facility] | | t | SHARI | Family | 9 | | r | | | [place] | Medicine | :31:00 | | Physician | | | dmitter: | | AM CDT - | | s Hot | | | SHARI | | | | [place] | | | AALIYAH | | 9 | | [place] | | | | | :: | | | | | | | AM CDT | | | + + + + +---+ + + + | PatientName : ANDIE BEAN (68yo, F) ID# [id number]. Date/Time : | | 05/12/2019 09:30AMDOB : 1Service Dept. : [facility] | | MedicineProvider : TRAVIS OMALLEYInsuranceMed Primary: UNITED | | HEALTHCARE (MEDICARE REPLACEMENT/ADVANTAGE - PPO)Insurance # : | | [id number]/Group # : [id number] : JONO RHOADESRefkiki Provider | | Name : JONO RHOADESPrescription: OPTUMRX - Member is eligible. | | detailsChief ComplaintFollow-Up, Right EdemaPatient's Care TeamPrimary | | Care Provider (Primary Insurance): JONO RHOADES: [address], | | [place] [address], , Referring | | Provider (Primary Insurance): JONO RHOADES: [address], [place], | | [place] [address], , Nurse Practitioner: | | TRAVIS OMALLEYPrimary Care Provider: JONO RHOADES DOPatient's | | [facility] [place] ([place]): [address] [place] [address] [address], | | [place] [address], , VitalsHt:5 ft 5 | | in (165.1 cm) 05/12/2019 09:49 amBP:118/66 sitting R arm 05/12/2019 | | 09:51 wpK3Dfn:98% Room Air at Rest 05/12/2019 09:50 amPulse:71 bpm | | 05/12/2019 09:50 amAllergiesReviewed AllergiesPRAVACHOL: Myalgias | | (muscle pain), Other - FatigueMedicationsReviewed MedicationsName: | | Adult Aspirin Regimen 81 mg tablet,delayed release Take 1 tablet(s) | | every day by oral route.Date: 09/03/18 enteredSource: Kathy | | ConnerName: Anoro Ellipta 62.5 mcg-25 mcg/actuation powder for | | inhalation INHALE 1 PUFF ONCE EACH DAY THANK YOU Date: 10/22/18 | | filledSource: PRESCRIPTION SOLUTIONSName: atorvastatin 40 mg tablet | | Take 1 tablet(s) every day by oral route.Date: 03/14/19 filledSource: | | PRESCRIPTION SOLUTIONSName: Bactrim 400 mg-80 mg tablet Take 1 | | tablet(s) every 12 hours by oral route for 10 days.Date: 05/03/19 | | prescribedSource: SHARI DURHAM CNSName: carvedilol 6.25 mg tablet | | Take 1 tablet(s) twice a day by oral route.Date: 04/26/19 | | filledSource: PRESCRIPTION SOLUTIONSName: ergocalciferol (vitamin D2) | | 50,000 unit capsule Take 1 capsule(s) every week by oral route.Date: | | 05/09/19 changedSource: SHALA JAIN CNPName: furosemide 40 mg | | tablet Take 1 tablet(s) twice a day by oral route.Date: 05/09/19 | | filledSource: PRESCRIPTION SOLUTIONSName: gabapentin 600 mg tablet Take | | 2 tablet(s) 3 times a day by oral route.Date: 05/10/19 | | renewedSource: SHALA JAIN CNPName: HumaLOG KwikPen (U-100) Insulin | | 100 unit/mL subcutaneous sliding scale with 5 units being most injected | | PRNDate: 06/01/17 filledSource: PRESCRIPTION SOLUTIONSName: Lantus | | Solostar U-100 Insulin 100 unit/mL (3 mL) subcutaneous pen Inject 15 | | unit(s) every day by subcutaneous route.Date: 03/21/19 filledSource: | | PRESCRIPTION SOLUTIONSName: Lantus U-100 Insulin 100 unit/mL | | subcutaneous solutionDate: 04/20/19 filledSource: PRESCRIPTION | | SOLUTIONSName: omeprazole 20 mg capsule,delayed release Take 1 | | capsule(s) every day by oral route.Date: 05/09/19 filledSource: | | PRESCRIPTION SOLUTIONSName: ProAir HFA 90 mcg/actuation aerosol inhaler | | Inhale 2 puff(s) every 4 hours by inhalation route.Date: 08/27/17 | | filledSource: PRESCRIPTION SOLUTIONSName: Questran 4 gram oral powder | | Take 1 scoop(s) every day by oral route.Note: for diarrheaDate: | | 09/17/18 prescribedSource: JONO RHOADES, DOName: sodium bicarbonate | | 650 mg tablet Take 1 tablet(s) every day by oral route.Date: 04/12/19 | | enteredSource: Meghan CrystalnairdName: sulfamethoxazole 800 | | mg-trimethoprim 160 mg tabletDate: 05/03/19 filledSource: | | PRESCRIPTION SOLUTIONSName: TRUEplus Pen Needle 31 gauge x 3/16"Date: | | 03/03/17 filledSource: PRESCRIPTION SOLUTIONSName: Tums 2 - 400mg | | tabs with every mealDate: 04/12/19 enteredSource: Meghan | | BonillanairdVaccinesReviewed VaccinesVaccine Type: influenza, high dose | | seasonalDate: 04/12/19Amt.: 0.5 mLRoute: IntramuscularSite: Deltoid, | | RightND: [id number] #: [id number].: Sanofi PasteurExp. Date: | | 11/08/19Date on VIS: 03/10/19VIS Given: 04/12/19Vaccinator: Meghan | | MolnairdVaccine Type: influenza, high dose seasonalDate: 04/21/18Amt.: | | 0.5 mLRoute: IntramuscularSite: Deltoid, RightNDC:Lot #: [id number].: | | Sanofi PasteurExp. Date: 10/23/18Date on VIS: 03/02/15VIS Given: | | 04/21/18Vaccinator: Shari [place], CNSVaccine Type: influenza, high | | dose seasonalDate: 06/02/17mt.:Route:Site:[facility]:Lot #:[id number].:Exp. | | Date:Date on VIS:VIS Given:Account Solutions Analyst:Vaccine Type: influenza, | | injectable, quadrivalentDate: 06/02/17mt.:Route:Site: [place], | | RightNDC:Lot #: [id number].: SeqirusExp. Date: 01/23/18Date on | | VIS:VIS Given: 06/02/17Vaccinator:Vaccine Type: pneumococcal conjugate | | PCV 13Date: 11/09/17Amt.: 0.5 mLRoute: IntramuscularSite: Deltoid, | | RightNDC:Lot #: [id number].: Other manufacturerExp. Date: 09/25/19Date | | on VIS: 05/31/15VIS Given: 11/09/17Vaccinator: Meghan MolnairdVaccine | | Type: pneumococcal polysaccharide [id number]: | | 05/27/16Amt.:Route:Site:[facility]:Lot #:[id number].:Exp. Date:Date on VIS:VIS | | Given:Account Solutions Analyst:ProblemsReviewed Problems* Type II diabetes mellitus | | uncontrolled - Onset: 10/03/2017* Diabetic neuropathy* Vitamin D | | deficiency - Onset: 06/16/2018* Mixed hyperlipidemia - Onset: | | 10/03/2017* Tobacco user - Onset: 10/03/2017* Essential hypertension* | | Cardiomyopathy - Onset: 2017* Stasis dermatitis - Onset: | | 2017* Chronic obstructive lung disease - Onset: 08/27/2017* | | Chronic kidney disease stage 4 - Onset: 09/10/2018* Lumbar | | radiculopathy* Postmenopausal osteoporosis* Tremor* Hepatitis C | | antibody test positive - Onset: 12/28/2017* Amputated below knee - | | Onset: 10/03/2017Family HistoryReviewed Family HistoryBrother- Heart | | disease- all 3 of this- Type 2 diabetes mellitusMother- Pulmonary | | emphysema- Disorder of thyroid glandPaternal Grandmother- Malignant | | tumor of breastSister- Malignant tumor of breast- Type 2 diabetes | | mellitusSocial HistoryReviewed Social HistoryFamily Medicine and | | Medical Wellness Visit/IPPEAble to Care for Self: NLive alone or with | | others?: with othersAdvance directive: Marycruz you currently employed?: | | NEducation: 12Occupation: DisabledNumber of children: 3Guns present in | | home: NAlcohol intake: NoneCaffeine intake: OccasionalIllicit drugs: | | NODiet: DiabeticExercise level: NoneHard of hearing or deaf in one or | | both ears?: NLegally blind in one or both eyes?: NSexual orientation: | | HeterosexualSmoke alarm in home: YTobacco Smoking Status: Current every | | day smokerChewing tobacco: noneSmoker (1 07/28 PPD)Has smoked since age: | | 25Tobacco-years of use: 25Passive smoke exposure?: YSeat belts used | | routinely: YSunscreen used routinely: NIs the patient ambulatory?: Yes: | | limited self-mobility with assistive device(s); generally relies on | | wheeled mobilityMost Recent Tobacco Use Screenin12/15/[facility] | | cessation counseling provided date: 12/15/2018Single or multi-level | | home/work?: single level homeMarital status: MarriedSurgical | | HistoryReviewed Surgical History* Cholecystectomy* Amputation - | | 02/25/2016 - LT leg amputation above the knee* Colonoscopy - | | 02/24/2014* Stent - 07/27/2006 - cardiac stent* delivery - | | 07/27/1975GYN 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 I:AB. S:ECTOPICS:MULTIPLE:LIVINPast Medical | | HistoryReviewed Past Medical HistoryOther: Y - Dialysis from 02/2016 to | | 10/2016 with fistula in LT armStent: Y - cardiac stentNotes: Broke LT | | leg on 01/21/2016 and had internal fixation performed but after she was | | discharged, she was admitted back into the hospital 2 weeks later with | | severe infection. Her LT leg (from knee down) amputated 03/03/2016 | | from severe infection while in [place] | | Hospital.HPICellulitisReported by patient.Location: right legsQuality: | | painful; redSeverity: improvingDuration: Pt was seen 05/03/2019 and | | started RX Bactrim.Onset: abrupt onsetAggravating factors: nothing | | makes it worseSymptoms: no fever; no nausea; no vomiting; swellingWanda | | is here today for a F/U on her cellulitis and danilo boot removal. Her | | swelling has improved.ROSPatient reports shortness of breath | | (baseline). She reports arthralgias/joint pain, back pain, neck pain, | | and difficulty walking; left amputee. Skin:: cellulitis right lower | | extremity- a little less red and less weeping- much better today. She | | reports tremor. She reports fatigue. She reports no fever, no | | significant weight gain, and no significant weight loss. She reports no | | chest pain. She reports no swollen glands.ROS as noted in the | | HPIPhysical ExamPatient is a 68-year-old female.Constitutional: General | | Appearance: well-nourished and well-developed. Level of Distress: | | chronically ill. Ambulation: in wheelchair.Psychiatric: Mental Status: | | active and alert.Lungs: Auscultation: decreased breath | | sounds.Cardiovascular: Heart Auscultation: RRR.Musculoskeletal:: | | Extremities: left BKA, RLE with edema 2+ with cellulitis.Neurologic: | | Sensation Right Foot: right facial weakness with + [place] | | sign-improved.Skin: Lesion Type: location: RLE. Color: pink. | | Location/Description: well demarcated. Infectious signs: no warmth, | | fluctuance, induration, or lymphangitic streaking and erythema, | | swelling, and tenderness; no more weeping- much improvement.Foot Exam:: | | Right Foot: right foot toes were examined and digital hair absent | | right; Marked swelling and loss of sensation. Left Foot: | | amputated.Assessment / Plan1. Cellulitis of lower limb | | -aqgumsbniZ42.119: Cellulitis of unspecified part of limb* APPLICATION | | OF UNNA BOOT WRAP (PROC)Patient Instructionshusband will remove in 3 | | days and follow up as needed.Return to OfficeNone recorded.Encounter | | Sign-OffEncounter signed-off by TRAVIS OMALLEY, 05/18/2019. | + + + + + + +---+ + | OUTPATIEN | Admitter: | [place] | | | [facility] | | T | SHARI [place] | 9 | | r | | | AALYIAH [facility] | 12:08:00 | | Physician | | | | | PM CDT | | s Hot | | | | | | | [place] | | | | | | | [place] | + + + + +---+ + | OUTPATIEN | Admitter: | [place] | | | [facility] | | T | SHARI [facility] | 9 | | r | | | AALIYAH | Medicine | 02:33:00 | | Physician | | | | | PM CDT | | s Hot | | | | | | | [place] | | | | | | | [place] | + + + + +---+ + | OUTPATIEN | Admitter: | [place] | | [facility] | | T | SHARI | Family | 9 | | r | | | [place] | Medicine | 12:47:00 | | Physician | | | | | PM CDT | | s Hot | | | | | | | [place] | | | | | | | [place] | + + + + +---+ + | OUTPATIEN | Admitter: | [place] | | | [facility] | | T | SHARI | Family | 9 | | r | | | AALIYAH | Medicine | 11:58:00 | | Physician | | | | | AM CDT | | s Hot | | | | | | | [place] | | | | | | | [place] | + + + + +---+ + | OUTPATIEN | Admitter: | [place] | | | [facility] | | T | SHARI | Family | 9 | | r | | | AALIYAH | Medicine | 11:53:00 | | Physician | | | | | AM CDT | | s Hot | | | | | | | [place] | | | | | | | [place] | + + + + +---+ + | OUTPATIEN | Admitter: | [place] | | | [facility] | | T | SHARI | Family | 9 | | r | | | AALIYAH | Medicine | 11:49:00 | | Physician | | | | | AM CDT | | s Hot | | | | | | | [place] | | | | | | | [place] | + + + + +---+ + | Outpatien | Attender: | [place] | | | [facility] | | t | SHARI | Family | 9 | | r | | | [place] | Medicine | 10:58:00 | | Physician | | | dmitter: | | AM CDT - | | s Hot | | | SHARI | | | | [place] | | | AALIYAH | | 9 | | [place] | | | | | 01:33:00 | | | | | | | PM CDT | | | + + + + +---+ + + + | PatientName : ANDIE BEAN (68yo, F) ID# [id number]. Date/Time : | | 05/10/2019 11:00AMDOB : [address] [place] [address] Dept. : [facility] | | MedicineProvider : TRAVIS OMALLEYInsuranceMed Primary: UNITED | | HEALTHCARE (MEDICARE REPLACEMENT/ADVANTAGE - PPO)Insurance # : | | [id number]/Group # : [id number] : JONO RHOADESReferrdaniel Provider | | Name : JONO RHOADESPrescription: OPTUMRX - Member is eligible. | | detailsChief ComplaintFollow-UpcellulitisPatient's Care TeamPrimary | | Care Provider (Primary Insurance): JONO RHOADES: [address], | | [facility] [place] [address], , Referring | | Provider (Primary Insurance): JONO RHOADES: [address], [place], | | [place] [address], , Nurse Practitioner: | | TRAVIS OMALLEYPrimary Care Provider: Adonis SOFIA'yolande | | [facility] [place] (ERX): [address] [place], [place] [address], | | [place] [address], , VitalsHt:5 ft 5 | | in (165.1 cm) 05/10/2019 11:24 amWt:Not Performed 05/10/2019 11:24 | | amBP:116/80 sitting R arm 05/10/2019 11:26 kfR5Pcy:99% Room Air at Rest | | 05/10/2019 11:25 amPulse:71 bpm 05/10/2019 11:25 amAllergiesReviewed | | AllergiesPRAVACHOL: Myalgias (muscle pain), Other - | | FatigueMedicationsReviewed MedicationsName: Adult Aspirin Regimen 81 mg | | tablet,delayed release Take 1 tablet(s) every day by oral route.Date: | | 09/03/18 enteredSource: Kathy ConnerName: Anoro Ellipta 62.5 mcg-25 | | mcg/actuation powder for inhalation INHALE 1 PUFF ONCE EACH DAY | | THANK YOU Date: 10/22/18 filledSource: PRESCRIPTION SOLUTIONSName: | | atorvastatin 40 mg tablet Take 1 tablet(s) every day by oral | | route.Date: 03/14/19 filledSource: PRESCRIPTION SOLUTIONSName: | | Bactrim 400 mg-80 mg tablet Take 1 tablet(s) every 12 hours by oral | | route for 10 days.Date: 05/03/19 prescribedSource: SHARI DURHAM, | | CNSName: carvedilol 6.25 mg tablet Take 1 tablet(s) twice a day by oral | | route.Date: 04/26/19 filledSource: PRESCRIPTION SOLUTIONSName: | | ergocalciferol (vitamin D2) 50,000 unit capsule Take 1 capsule(s) every | | week by oral route.Date: 05/09/19 changedSource: SHALA JAIN, | | CNPName: furosemide 40 mg tablet Take 1 tablet(s) twice a day by oral | | route.Date: 05/09/19 filledSource: PRESCRIPTION SOLUTIONSName: | | gabapentin 600 mg tablet Take 2 tablet(s) 3 times a day by oral | | route.Date: 05/10/19 renewedSource: SHALA JAIN, CNPName: HumaLOG | | KwikPen (U-100) Insulin 100 unit/mL subcutaneous sliding scale with 5 | | units being most injected PRNDate: 06/01/17 filledSource: | | PRESCRIPTION SOLUTIONSName: Lantus Solostar U-100 Insulin 100 unit/mL | | (3 mL) subcutaneous pen Inject 15 unit(s) every day by subcutaneous | | route.Date: 03/21/19 filledSource: PRESCRIPTION SOLUTIONSName: Lantus | | U-100 Insulin 100 unit/mL subcutaneous solutionDate: 04/20/19 | | filledSource: PRESCRIPTION SOLUTIONSName: omeprazole 20 mg | | capsule,delayed release Take 1 capsule(s) every day by oral route.Date: | | 05/09/19 filledSource: PRESCRIPTION SOLUTIONSName: ProAir HFA 90 | | mcg/actuation aerosol inhaler Inhale 2 puff(s) every 4 hours by | | inhalation route.Date: 08/27/17 filledSource: PRESCRIPTION | | SOLUTIONSName: Questran 4 gram oral powder Take 1 scoop(s) every day by | | oral route.Note: for diarrheaDate: 09/17/18 prescribedSource: | | EMIGDIO SOFIAame: sodium bicarbonate 650 mg tablet Take 1 | | tablet(s) every day by oral route.Date: 04/12/19 enteredSource: | | Meghan CrystalnairdName: sulfamethoxazole 800 mg-trimethoprim 160 mg | | tabletDate: 05/03/19 filledSource: PRESCRIPTION SOLUTIONSName: | | TRUEplus Pen Needle 31 gauge x /16"Date: 03/03/17 filledSource: | | PRESCRIPTION SOLUTIONSName: Tums 2 - 400mg tabs with every mealDate: | | 04/12/19 enteredSource: Meghan ShoemakerVaccinesReviewed | | VaccinesVaccine Type: influenza, high dose seasonalDate: 04/12/19Amt.: | | 0.5 mLRoute: IntramuscularSite: Deltoid, RightND: [id number] #: | | [id number].: Sanofi PasteurExp. Date: 11/08/19Date on VIS: 03/10/19VIS | | Given: 04/12/19Vaccinator: Meghan ShoemakerVaccine Type: influenza, | | high dose seasonalDate: 04/21/18Amt.: 0.5 mLRoute: IntramuscularSite: | | [facility], [facility]:Lot #: [id number].: Sanofi PasteurExp. Date: | | 10/23/18Date on VIS: 03/02/15VIS Given: 04/21/18Vaccinator: Shari | | Aaliyah CNSVaccine Type: influenza, high dose seasonalDate: | | 06/02/17mt.:Route:Site:NDC:Lot #:Mfr.:Exp. Date:Date on VIS:VIS | | Given:Account Solutions Analyst:Vaccine Type: influenza, injectable, quadrivalentDate: | | 06/02/17mt.:Route:Site: Deltoid, RightND:Lot #: [id number].: | | SeqirusExp. Date: 01/23/18Date on VIS:VIS Given: | | 06/02/17Vaccinator:Vaccine Type: pneumococcal conjugate PCV 13Date: | | 11/09/17Amt.: 0.5 mLRoute: IntramuscularSite: Deltoid, RightNDC:Lot #: | | [id number].: Other manufacturerExp. Date: 09/25/19Date on VIS: | | 05/31/15VIS Given: 11/09/17Vaccinator: Meghan MolnairdVaccine Type: | | pneumococcal polysaccharide [id number]: 05/27/16Amt.:Route:Site:NDC:Lot | | #:Mfr.:Exp. Date:Date on VIS:VIS Given:Account Solutions Analyst:ProblemsReviewed | | Problems* Type II diabetes mellitus uncontrolled - Onset: 10/03/2017* | | Diabetic neuropathy* Vitamin D deficiency - Onset: 06/16/2018* Mixed | | hyperlipidemia - Onset: 10/03/2017* Tobacco user - Onset: 10/03/2017* | | Essential hypertension* Cardiomyopathy - Onset: 2017* Stasis | | dermatitis - Onset: 2017* Chronic obstructive lung disease - | | Onset: 08/27/2017* Chronic kidney disease stage 4 - Onset: 09/10/2018* | | Lumbar radiculopathy* Postmenopausal osteoporosis* Tremor* Hepatitis C | | antibody test positive - Onset: 12/28/2017* Amputated below knee - | | Onset: 10/03/2017Family HistoryReviewed Family HistoryBrother- Heart | | disease- all 3 of this- Type 2 diabetes mellitusMother- Pulmonary | | emphysema- Disorder of thyroid glandPaternal Grandmother- Malignant | | tumor of breastSister- Malignant tumor of breast- Type 2 diabetes | | mellitusSocial HistoryReviewed Social HistoryFamily Medicine and | | Medical Wellness Visit/IPPEAble to Care for Self: NLive alone or with | | others?: with othersAdvance directive: Marycruz you currently employed?: | | NEducation: 12Occupation: DisabledNumber of children: 3Guns present in | | home: NAlcohol intake: NoneCaffeine intake: OccasionalIllicit drugs: | | NODiet: DiabeticExercise level: NoneHard of hearing or deaf in one or | | both ears?: NLegally blind in one or both eyes?: NSexual orientation: | | HeterosexualSmoke alarm in home: YTobacco Smoking Status: Current every | | day smokerChewing tobacco: noneSmoker (1 07/28 PPD)Has smoked since age: | | 25Tobacco-years of use: 25Passive smoke exposure?: YSeat belts used | | routinely: YSunscreen used routinely: NIs the patient ambulatory?: Yes: | | limited self-mobility with assistive device(s); generally relies on | | wheeled mobilityMost Recent Tobacco Use Screenin12/15/2018Tobacco | | cessation counseling provided date: 12/15/2018Single or multi-level | | home/work?: single level homeMarital status: MarriedSurgical | | HistoryReviewed Surgical History* Cholecystectomy* Amputation - | | 02/25/2016 - LT leg amputation above the knee* Colonoscopy - | | 02/24/2014* Stent - 07/27/2006 - cardiac stent* delivery - | | 07/27/1975GYN 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 I:AB. S:ECTOPICS:MULTIPLE:LIVINPast Medical | | HistoryReviewed Past Medical HistoryOther: Y - Dialysis from 02/2016 to | | 10/2016 with fistula in LT armStent: Y - cardiac stentNotes: Broke LT | | leg on 01/21/2016 and had internal fixation performed but after she was | | discharged, she was admitted back into the hospital 2 weeks later with | | severe infection. Her LT leg (from knee down) amputated 03/03/2016 | | from severe infection while in [place] | | [facility].HPICellulitisReported by patient.Location: right legsQuality: | | painful; red; drainingSeverity: improvingDuration: Pt was seen | | 05/03/2019 and was RX Bactrim. She is still taking it. She has 3 days | | leftOnset: abrupt onsetAggravating factors: nothing makes it | | worseSymptoms: no fever; no nausea; no vomiting; swellingWanda is here | | for a F/U on her cellulitis. Her edema has improved. It began to drain | | much more than before 2 days ago with less redness and painROSPatient | | reports no fever, no significant weight gain, and no significant weight | | loss; + drowsiness. She reports shortness of breath (baseline). She | | reports arthralgias/joint pain, back pain, neck pain, and difficulty | | walking; left amputee. Skin:: cellulitis right lower extremity- a | | little less red and less weeping. She reports tremor. She reports | | fatigue. She reports no chest pain. She reports no swollen glands.ROS | | as noted in the HPIPhysical ExamPatient is a 68-year-old | | female.Constitutional: General Appearance: well-nourished and | | well-developed. Level of Distress: chronically ill. Ambulation: in | | wheelchair.Psychiatric: Mental Status: active and alert.Lungs: | | Auscultation: decreased breath sounds.Cardiovascular: Heart | | Auscultation: RRR.Musculoskeletal:: Extremities: left BKA, RLE with | | edema 2+ with cellulitis.Neurologic: Sensation Right Foot: right facial | | weakness with + [place] sign-improved.Skin: Lesion Type: location: RLE. | | Color: pink. Location/Description: well demarcated. Infectious signs: | | no warmth, fluctuance, induration, or lymphangitic streaking and | | erythema, swelling, and tenderness; weaping- little improvement.Foot | | Exam:: Right Foot: right foot toes were examined and digital hair | | absent right; Marked swelling and loss of sensation. Left Foot: | | amputated.Assessment / Plan1. Cellulitis of lower limbL03.119: | | Cellulitis of unspecified part of limb* APPLICATION OF UNNA BOOT WRAP | | (PROC)Patient Instructionsadvised to continue same meds - elevate leg | | when possible - applied Unna Boot- will see back in 2 daysReturn to | | Office* TRAVIS OMALLEY for ANY 15 at [facility] on | | 05/12/2019 at 09:30 Heather Sign-OffEncounter signed-off by SHARI | | TRAVIS DURHAM, 05/12/2019. | + + + + + + +---+ + | OUTPATIEN | Admitter: | Owen | | | [facility] | | T | SHARI Dupont | 9 | | r | | | AALIYAH | [facility] | 01:50:00 | | Physician | | | | | PM CDT | | s Hot | | | | | | | [place] | | | | | | | Sadaf | + + + + +---+ + | OUTPATIEN | Admitter: | Owen | | | [facility] | | T | SHARI | [facility] | 9 | | r | | | [place] | [facility] | 10:39:00 | | Physician | | | | | AM CDT | | s Hot | | | | | | | [place] | | | | | | | Sadaf | + + + + +---+ + | OUTPATIEN | Admitter: | [place] | | | [facility] | | T | SHARI | Family | 9 | | r | | | AALIYAH | Medicine | 10:19:00 | | Physician | | | | | AM CDT | | s Hot | | | | | | | [place] | | | | | | | [place] | + + + + +---+ + | Outpatien | Attender: | Owen | | | [facility] | | t | SHARI | Family | 9 | | r | | | SHERI | Medicine | 09:19:00 | | Physician | | | dmitter: | | AM CDT - | | s Hot | | | SHARI | | | | [place] | | | AALIYAH | | 9 | | Sadaf | | | | | 12:50:00 | | | | | | | PM CDT | | | + + + + +---+ + + + | PatientName : SEBASTIAN BEANDA (68yo, F) ID# [id number]. Date/Time : | | 05/06/2019 09:15AMDOB : 1Service Dept. : Owen Dupont | | MedicineProvider : SHARI DURHAM CNSInsuranceMed Primary: UNITED | | HEALTHCARE (MEDICARE REPLACEMENT/ADVANTAGE - PPO)Insurance # : | | [id number]/Group # : [id number] : Wilbert RHOADES Provider | | Name : JF JONOPrescription: OPTUMRX - Member is eligible. | | detailsChief ComplaintFollow-Up, Right EdemaPatient's Care TeamPrimary | | Care Provider (Primary Insurance): JFJONO: [address], | | [place] [address], , Referring | | Provider (Primary Insurance): JONO RHOADES: [address], [facility] [place] | | [place] [address], , Nurse Practitioner: | | SHARI DURHAM CNSPrimary Care Provider: Adonis SOFIA'yolande | | [facility] [place] (ERX): [address] [place] [address] [address], | | [place] [address], , VitalsHt:5 ft 5 | | in (165.1 cm) 05/06/2019 09:27 amWt:Not Performed 05/06/2019 09:27 | | amBP:118/62 sitting R arm 05/06/2019 09:28 [id number]:99% Room Air at Rest | | 05/06/2019 09:27 amPulse:66 bpm 05/06/2019 09:28 amAllergiesReviewed | | AllergiesPRAVACHOL: Myalgias (muscle pain), Other - | | FatigueMedicationsReviewed MedicationsName: Adult Aspirin Regimen 81 mg | | tablet,delayed release Take 1 tablet(s) every day by oral route.Date: | | 09/03/18 enteredSource: Kathy ConnerName: Anoro Ellipta 62.5 mcg-25 | | mcg/actuation powder for inhalation INHALE 1 PUFF ONCE EACH DAY | | THANK YOU Date: 10/22/18 filledSource: PRESCRIPTION SOLUTIONSName: | | atorvastatin 40 mg tablet Take 1 tablet(s) every day by oral | | route.Date: 03/14/19 filledSource: PRESCRIPTION SOLUTIONSName: | | Bactrim 400 mg-80 mg tablet Take 1 tablet(s) every 12 hours by oral | | route for 10 days.Date: 05/03/19 prescribedSource: SHARI DURHAM, | | CNSName: carvedilol 6.25 mg tablet Take 1 tablet(s) twice a day by oral | | route.Date: 04/26/19 filledSource: PRESCRIPTION SOLUTIONSName: | | ergocalciferol (vitamin D2) 50,000 unit capsule Take 1 capsule(s) every | | week by oral route.Date: 05/09/19 changedSource: SHALA JAIN, | | CNPName: furosemide 40 mg tablet Take 1 tablet(s) twice a day by oral | | route.Date: 05/09/19 filledSource: PRESCRIPTION SOLUTIONSName: | | gabapentin 600 mg tablet Take 2 tablet(s) 3 times a day by oral | | route.Date: 05/10/19 renewedSource: SHALA JAIN, CNPName: HumaLOG | | KwikPen (U-100) Insulin 100 unit/mL subcutaneous sliding scale with 5 | | units being most injected PRNDate: 06/01/17 filledSource: | | PRESCRIPTION SOLUTIONSName: Lantus Solostar U-100 Insulin 100 unit/mL | | (3 mL) subcutaneous pen Inject 15 unit(s) every day by subcutaneous | | route.Date: 03/21/19 filledSource: PRESCRIPTION SOLUTIONSName: Lantus | | U-100 Insulin 100 unit/mL subcutaneous solutionDate: 04/20/19 | | filledSource: PRESCRIPTION SOLUTIONSName: omeprazole 20 mg | | capsule,delayed release Take 1 capsule(s) every day by oral route.Date: | | 05/09/19 filledSource: PRESCRIPTION SOLUTIONSName: ProAir HFA 90 | | mcg/actuation aerosol inhaler Inhale 2 puff(s) every 4 hours by | | inhalation route.Date: 08/27/17 filledSource: PRESCRIPTION | | SOLUTIONSName: Questran 4 gram oral powder Take 1 scoop(s) every day by | | oral route.Note: for diarrheaDate: 09/17/18 prescribedSource: | | Ellen SOFIA: sodium bicarbonate 650 mg tablet Take 1 | | tablet(s) every day by oral route.Date: 04/12/19 enteredSource: | | Meghan ShoemakerName: sulfamethoxazole 800 mg-trimethoprim 160 mg | | tabletDate: 05/03/19 filledSource: PRESCRIPTION SOLUTIONSName: | | TRUEplus Pen Needle 31 gauge x 10/09"Date: 03/03/17 filledSource: | | PRESCRIPTION SOLUTIONSName: Tums 2 - 400mg tabs with every mealDate: | | 04/12/19 enteredSource: Meghan ShoemakerVaccinesReviewed | | VaccinesVaccine Type: influenza, high dose seasonalDate: 04/12/19Amt.: | | 0.5 mLRoute: IntramuscularSite: Deltoid, [facility]: [id number] #: | | [id number].: Sanofi PasteurExp. Date: 11/08/19Date on VIS: 03/10/19VIS | | Given: 04/12/19Vaccinator: Meghan ShoemakerVaccine Type: influenza, | | high dose seasonalDate: 04/21/18Amt.: 0.5 mLRoute: IntramuscularSite: | | [facility]:Lot #: [id number].: Sanofi PasteurExp. Date: | | 10/23/18Date on VIS: 03/02/15VIS Given: 04/21/18Vaccinator: Shari | | Aaliyah, CNSVaccine Type: influenza, high dose seasonalDate: | | 06/02/17mt.:Route:Site:[facility]:Lot #:[id number].:Exp. Date:Date on VIS:VIS | | Given:Account Solutions Analyst:Vaccine Type: influenza, injectable, quadrivalentDate: | | 06/02/17mt.:Route:Site: Deltoid, [facility]:Lot #: [id number].: | | SeqirusExp. Date: 01/23/18Date on VIS:VIS Given: | | 06/02/17Vaccinator:Vaccine Type: pneumococcal conjugate PCV 13Date: | | 11/09/17Amt.: 0.5 mLRoute: IntramuscularSite: Deltoid, RightNDC:Lot #: | | [id number].: Other manufacturerExp. Date: 09/25/19Date on VIS: | | 05/31/15VIS Given: 11/09/17Vaccinator: Meghan ShoemakerVaccine Type: | | pneumococcal polysaccharide [id number]: 05/27/16Amt.:Route:Site:NDC:Lot | | #:Mfr.:Exp. Date:Date on VIS:VIS Given:Account Solutions Analyst:ProblemsReviewed | | Problems* Type II diabetes mellitus uncontrolled - Onset: 10/03/2017* | | Diabetic neuropathy* Vitamin D deficiency - Onset: 06/16/2018* Mixed | | hyperlipidemia - Onset: 10/03/2017* Tobacco user - Onset: 10/03/2017* | | Essential hypertension* Cardiomyopathy - Onset: 2017* Stasis | | dermatitis - Onset: 2017* Chronic obstructive lung disease - | | Onset: 08/27/2017* Chronic kidney disease stage 4 - Onset: 09/10/2018* | | Lumbar radiculopathy* Postmenopausal osteoporosis* Tremor* Hepatitis C | | antibody test positive - Onset: 12/28/2017* Amputated below knee - | | Onset: 10/03/2017Family HistoryReviewed Family HistoryBrother- Heart | | disease- all 3 of this- Type 2 diabetes mellitusMother- Pulmonary | | emphysema- Disorder of thyroid glandPaternal Grandmother- Malignant | | tumor of breastSister- Malignant tumor of breast- Type 2 diabetes | | mellitusSocial HistoryReviewed Social HistoryFamily Medicine and | | Medical Wellness Visit/IPPEAble to Care for Self: NLive alone or with | | others?: with othersAdvance directive: NAre you currently employed?: | | NEducation: 12Occupation: DisabledNumber of children: 3Guns present in | | home: NAlcohol intake: NoneCaffeine intake: OccasionalIllicit drugs: | | NODiet: DiabeticExercise level: NoneHard of hearing or deaf in one or | | both ears?: NLegally blind in one or both eyes?: NSexual orientation: | | HeterosexualSmoke alarm in home: YTobacco Smoking Status: Current every | | day smokerChewing tobacco: noneSmoker (1 07/28 PPD)Has smoked since age: | | 25Tobacco-years of use: 25Passive smoke exposure?: YSeat belts used | | routinely: YSunscreen used routinely: NIs the patient ambulatory?: Yes: | | limited self-mobility with assistive device(s); generally relies on | | wheeled mobilityMost Recent Tobacco Use Screenin12/15/2018Tobacco | | cessation counseling provided date: 12/15/2018Single or multi-level | | home/work?: single level homeMarital status: MarriedSurgical | | HistoryReviewed Surgical History* Cholecystectomy* Amputation - | | 02/25/2016 - LT leg amputation above the knee* Colonoscopy - | | 02/24/2014* Stent - 07/27/2006 - cardiac stent* delivery - | | 07/27/1975GYN 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 I:AB. S:ECTOPICS:MULTIPLE:LIVINPast Medical | | HistoryReviewed Past Medical HistoryOther: Y - Dialysis from 02/2016 to | | 10/2016 with fistula in LT armStent: Y - cardiac stentNotes: Broke LT | | leg on 01/21/2016 and had internal fixation performed but after she was | | discharged, she was admitted back into the hospital 2 weeks later with | | severe infection. Her LT leg (from knee down) amputated 03/03/2016 | | from severe infection while in [place] | | [facility].HPICellulitisReported by patient.Location: right legsQuality: | | painful; red; drainingSeverity: improvingDuration: Pt was seen | | 05/03/2019 and was RX Bactrim. She is still taking it.Onset: abrupt | | onsetAggravating factors: nothing makes it worseSymptoms: no fever; no | | nausea; no vomiting; swellingWanda is here for a F/U on her | | cellulitis.ROSPatient reports no fever, no significant weight gain, and | | no significant weight loss; + drowsiness. She reports shortness of | | breath (baseline). She reports arthralgias/joint pain, back pain, neck | | pain, and difficulty walking; left amputee. Skin:: cellulitis right | | lower extremity- a little less red and less weeping. She reports | | tremor. She reports fatigue. She reports no chest pain. She reports no | | swollen glands.ROS as noted in the HPIPhysical ExamPatient is a | | 68-year-old female.Constitutional: General Appearance: well-nourished | | and well-developed. Level of Distress: chronically ill. Ambulation: in | | wheelchair.Psychiatric: Mental Status: active and alert.Eyes: Pupils: | | PERRLA. EOM: EOMI.ENMT: Ears: no lesions on external ear and TMs clear. | | Hearing: no hearing loss.Lungs: Auscultation: decreased breath | | sounds.Cardiovascular: Heart Auscultation: RRR.Abdomen: Bowel Sounds: | | normal. Inspection and Palpation: soft and epigastric tenderness. | | Liver: non-tender and no hepatomegaly. Spleen: | | non-tender.Musculoskeletal:: Extremities: left BKA, RLE with edema 2+ | | with cellulitis.Neurologic: Sensation Right Foot: right facial weakness | | with + [place] sign-improved.Skin: Lesion Type: location: RLE. Color: | | pink. Location/Description: well demarcated. Infectious signs: no | | fluctuance, induration, or lymphangitic streaking and warmth, erythema, | | swelling, and tenderness; weaping- little improvement.Foot Exam:: | | Right Foot: right foot toes were examined and digital hair absent | | right; Marked swelling and loss of sensation. Left Foot: | | amputated.Assessment / Plan1. Cellulitis of lower limbL03.119: | | Cellulitis of unspecified part of limb2. Postmenopausal osteoporosis | | -This care plan was designed by your provider to assist in improving | | your overall health and well being.Assessment: Postmenopausal | | OsteoporosisCondition Status: StableGOALS for better health: achieve | | healthy weight, be more active, lower blood pressure, lower | | cholesterol, and modify eating habits.WEIGHT should be monitored to | | achieve optimal health.EXERCISE is an important factor to attaining | | optimal health.NUTRITION Your provider advises lowering salt levels in | | your diet: limit packaged foods like pretzels, chips, pickled foods, | | cured meats like hawley and salami, canned soups, cheeses, and soy | | sauce. Limiting foods that taste sweet including: soda, candy, cake, | | pie, jam, canned fruit in syrup and cookies, limiting foods high in fat | | like processed meats (sausage), nuts, cheeses, butter, and packaged | | foods with hydrogenated oils. Limit foods high in carbs like baked | | goods, low fat packaged foods, potatoes, pizza, and sugary | | cereals.BLOOD PRESSURE your provider recommends 140 or below systolic | | and 90 or below diastolic as your goal BP.RECOMMENDATIONS given | | include: continue to have Bone Density test performed every 2 years, | | perform weight-bearing exercise (i.e. walking) 3-5 days a week for at | | least 30 mins at a time, Vitamin D supplementation, avoid alcohol, take | | medications as directed by your physician trying not to miss any | | doses, follow up with physician as directed, and report any new or | | worsening symptoms to your physician as soon as possible.Follow up: 6 | | iblvtdF39.0: Age-related osteoporosis without current pathological | | fracture3. Tobacco userZ72.0: Tobacco use4. Lumbar radiculopathy -This | | care plan was designed by your provider to assist in improving your | | overall health and well being.Assessment: lumbar radiculopathyCondition | | Status: StableGOALS for better health: achieve healthy weight, be more | | active, improve mobility, lower blood pressure, lower cholesterol, and | | modify eating habits.WEIGHT should be monitored to achieve optimal | | health.EXERCISE is an important factor to attaining optimal | | health.CARDIO at low intensity. Some examples of low intensity exercise | | include: walking, swimming, and stretching.NUTRITION Your provider | | advises staying hydrated. The [place] of Medicine determined men need | | roughly 3 liters (about 13 cups) of total beverages per day and women | | need about 2.2 liters (about 9 cups) of total beverages per day. Your | | provider also advises lowering salt levels in your diet.BLOOD PRESSURE | | your provider recommends 140 or below systolic and 90 or below | | diastolic as your goal BP.REMINDERS: Alternate heat & ice as needed for | | pain, rest when necessary, try not to exceed your limitations, | | exercise when possible, and take medication as prescribed, try your | | best not to miss any doses. Try to get the recommended amount of sleep | | which is 7-8 hours per night.Follow up: 3 [id number]: Radiculopathy, | | lumbar region5. Chronic obstructive lung disease -This care plan was | | designed by your provider to assist in improving your overall health | | and well being.Assessment: Chronic Obstructive Pulmonary Disease | | (COPD)Condition Status: StableGOALS for better health: achieve healthy | | weight, be more active, lower blood pressure, lower cholesterol, stress | | reduction, modify eating habits, and if you smoke, your physician | | highly advises you to QUIT SMOKING. If you need extra help with smoking | | cessation, talk to your physician regarding your options. COPD puts a | | heavy strain on your body which makes you more vulnerable to infections | | so it is of the utmost importance to stay current with your | | immunizations such as your yearly flu shot, pneumonia (Pneumo 23 & | | Prevnar 13), and shingles (Shingrix).WEIGHT should be monitored to | | achieve optimal health.EXERCISE is an important factor in obtaining | | your optimal health.NUTRITION Your provider advises a low sodium diet | | so it is very important to lower the salt levels in your diet. Limit | | packaged foods like pretzels, chips, pickled foods, cured meats like | | hawley and salami, canned soups, cheeses, and soy sauce. Excess sugar is | | not good for your overall health. Limit foods that taste sweet | | including: soda, candy, cake, pie, jam, canned fruit in syrup and | | cookies, limiting foods high in fat like processed meats (sausage), | | nuts, cheeses, butter, and packaged foods with hydrogenated oils. It is | | also very important to limit foods high in carbs like baked goods, low | | fat packaged foods, potatoes, pizza, and sugary cereals to obtain your | | optimal health.BLOOD PRESSURE your provider recommends 140 or below | | systolic and 90 or below diastolic as your goal BP. Be sure to check | | your BP with your home blood pressure monitor and record your readings | | in a journal to take to your doctor visits for them to be reviewed by | | your physician.REMINDERS: Try your best to avoid cold, hot, or humid | | weather and avoid breathing dust, fumes, perfumes/cologne and smoke | | because your COPD symptoms may be worsened (exacerbated). Exercise on a | | regular basis when your physically able to, take all your medication | | (including your inhalers and nebulizer treatments) as prescribed by | | your physician, and try your best not to miss any doses. Continue to | | have fasting blood work performed every 3-6 months as directed by your | | physician and schedule any necessary follow up appointments. Report any | | new or worsening symptoms to your physician.Follow up: 6 wiffqrF05.9: | | Chronic obstructive pulmonary disease, unspecified6. Diabetic | | neuropathy -This care plan was designed by your provider to assist in | | improving your overall health and well being.Assessment: Diabetic | | NeuropathyCondition Status: StableGOALS for better health: achieve | | healthy weight, be more active, improve mobility, lower blood pressure, | | lower cholesterol, and modify eating habits.WEIGHT should be monitored | | to achieve optimal health.EXERCISE is an important factor to attaining | | optimal health.CARDIO at low intensity. Examples of low intensity | | exercise include: walking, swimming, and stretching.NUTRITION Your | | provider advises lowering salt levels in your diet: limit packaged | | foods like pretzels, chips, pickled foods, cured meats like hawley and | | salami, canned soups, cheeses, and soy sauce. Limiting foods that taste | | sweet including: soda, candy, cake, pie, jam, canned fruit in syrup | | and cookies, limiting foods high in fat like processed meats (sausage), | | nuts, cheeses, butter, and packaged foods with hydrogenated oils. | | Limit foods high in carbs like baked goods, low fat packaged foods, | | potatoes, pizza, and sugary cereals.BLOOD PRESSURE your provider | | recommends 140 or below systolic and 90 or below diastolic as your goal | | BP.RECOMMENDATIONS: Instructed in the correct use of a glucometer, | | advised to check fasting glucose once daily, follow a low cholesterol | | diet, get yearly flu shots before flu season, stay current on your | | other immunizations such as pneumonia (Pneumo 23 and Prevnar 13) & | | shingles (Shingrix), perform routine monitoring of your blood pressure | | with your home blood pressure cuff, exercise regularly, take medication | | as prescribed, and try your best not to miss any medication doses. | | Continue to have your HgA1c checked every 3 months and fasting blood | | work performed every 3-6 months as directed by your physician and | | schedule any necessary follow up appointments.Follow up: 6 | | [id number]: Type 2 diabetes mellitus with diabetic neuropathy, | | unspecified7. Tremor -This care plan was designed by your provider to | | assist in improving your overall health and well being.Assessment: | | TremorCondition Status: StableGOALS for better health: achieve healthy | | weight, be more active, lower blood pressure, lower cholesterol, and | | modify eating habits.WEIGHT should be monitored to achieve optimal | | health.EXERCISE is an important factor to attaining optimal | | health.NUTRITION Your provider advises lowering salt levels in your | | diet: limit packaged foods like pretzels, chips, pickled foods, cured | | meats like hawley and salami, canned soups, cheeses, and soy sauce. | | Limiting foods that taste sweet including: soda, candy, cake, pie, jam, | | canned fruit in syrup and cookies, limiting foods high in fat like | | processed meats (sausage), nuts, cheeses, butter, and packaged foods | | with hydrogenated oils. Limit foods high in carbs like backed goods, | | low fat packaged foods, potatoes, pizza, and sugary cereals.REMINDERS: | | Continue to have fasting blood work performed every 3-6 months as | | directed by your physician. Take your medications as directed by your | | physician trying your best not to miss any doses and schedule any | | necessary follow up appointments.Follow up: 6 tbaywsC16.1: Tremor, | | unspecified8. Mixed hyperlipidemia -This care plan was designed by your | | provider to assist in improving your overall health and well | | being.Assessment: HyperlipidemiaCondition Status: StableGOALS for | | better health: achieve healthy weight, be more active, lower blood | | pressure, lower cholesterol, and modify eating habits.WEIGHT should be | | monitored to achieve optimal health.EXERCISE is an important factor to | | attaining optimal health.NUTRITION Your provider advises lowering salt | | levels in your diet: limit packaged foods like pretzels, chips, pickled | | foods, cured meats like hawley and salami, canned soups, cheeses, and | | soy sauce. Limiting foods that taste sweet including: soda, candy, | | cake, pie, jam, canned fruit in syrup and cookies, limiting foods high | | in fat like processed meats (sausage), nuts, cheeses, butter, and | | packaged foods with hydrogenated oils. Limit foods high in carbs like | | backed goods, low fat packaged foods, potatoes, pizza, and sugary | | cereals.REMINDERS: Continue to have fasting blood work performed every | | 3-6 months as directed by your physician. Take your medications as | | directed by your physician trying your best not to miss any doses and | | schedule any necessary follow up appointments.Follow up: 6 lxnyuqF19.2: | | Mixed hyperlipidemia9. Amputated below knee -This care plan was | | designed by your provider to assist in improving your overall health | | and well being.Assessment: Amputated Below KneeCondition Status: | | StableGOALS for better health: achieve healthy weight, be more active, | | lower blood pressure, lower cholesterol, stress reduction, and modify | | eating habits.WEIGHT should be monitored to achieve optimal | | health.EXERCISE is an important factor to attaining optimal | | health.NUTRITION Your provider advises lowering salt levels in your | | diet: limit packaged foods like pretzels, chips, pickled foods, cured | | meats like hawley and salami, canned soups, cheeses, and soy sauce. | | Limiting foods that taste sweet including: soda, candy, cake, pie, jam, | | canned fruit in syrup and cookies, limiting foods high in fat like | | processed meats (sausage), nuts, cheeses, butter, and packaged foods | | with hydrogenated oils. Limit foods high in carbs like baked goods, low | | fat packaged foods, potatoes, pizza, and sugary cereals.BLOOD PRESSURE | | your provider recommends 140 or below systolic and 90 or below | | diastolic as your goal BP. Be sure to check your BP with your home | | blood pressure monitor and record your readings in a journal to take to | | your doctor visits for them to be reviewed by your | | physician.REMINDERS: Perform routine monitoring of your blood pressure, | | regular exercise, take all medications as prescribed, and try your | | best not to miss any doses. Continue to have fasting blood work | | performed every 3-6 months as directed by your physician and schedule | | any necessary follow up appointments. Report any new or worsening | | symptoms to your physician.Follow up: 6 [id number]: Acquired absence | | of left leg above knee10. Hepatitis C antibody test positive -This | | Care Plan was designed by your Provider to assist in improving your | | overall health & well beingAssessment: Hepatitis CCondition Status: | | stableGOALS: Be safe with medicines. If your doctor prescribes | | antiviral medicine, take it exactly as prescribed. Call your doctor if | | you think you are having a problem with your medicine.Do not drink | | alcohol. Alcohol can damage the liver. Tell your doctor if you need | | help to quit. Counseling, support groups, and sometimes medicines can | | help you stay sober.Do not take drugs or herbal medicines. They can | | make liver problems worse.Make sure your doctor knows all of the | | medicines you take. Some medicines, such as acetaminophen (Tylenol), | | can make liver problems worse. Do not take any new medicines unless | | your doctor tells you to. This includes vino-usc-msuqjzi | | medicines.Maintain a healthy lifestyle. Get plenty of exercise if you | | feel up to it. Eat a healthy diet.Drink plenty of fluids, enough so | | that your urine is light yellow or clear like water. If you have | | kidney, heart, or liver disease and have to limit fluids, talk with | | your doctor before you increase the amount of fluids you drink.Get the | | vaccines (if you have not already) to protect yourself from hepatitis A | | and hepatitis B, influenza, and pneumococcus.The infection can make | | you itch. Keep cool and stay out of the sun. Try to wear cotton | | clothing. Talk to your doctor about using igar-qnt-xymscgc medicines | | for itching. These include diphenhydramine (Benadryl) and | | chlorpheniramine (Chlor-Trimeton). Follow the instructions on the | | label.If you feel depressed, talk to your doctor about treatment. Many | | people who have long-term illnesses get depressed. Keep in mind that | | antiviral medicine can make depression worse.Follow up: 6 sytbgqA77.19: | | Personal history of other infectious and parasitic iugusxtg86. Vitamin | | D deficiency -This care plan was designed by your provider to assist | | in improving your overall health and well being.Assessment: Vitamin | | DeficiencyCondition Status: StableGOALS for better health: achieve | | healthy weight, be more active, lower blood pressure, lower | | cholesterol, and modify eating habits.WEIGHT should be monitored to | | achieve optimal health.EXERCISE is an important factor to attaining | | optimal health.NUTRITION Your provider advises increases your intake of | | vitamin rich foods such as chicken liver, greens (such as beans, | | broccoli, etc). Limit foods high in carbs like baked goods, low fat | | packaged foods, potatoes, pizza, and sugary cereals.REMINDERS: Continue | | to have fasting blood work performed every 3-6 months as directed by | | your physician. Take your medications or OTC suppliments as directed by | | your physician trying your best not to miss any doses and schedule any | | necessary follow up appointments. Report any new or worsening symptoms | | to your doctor.Follow up: 6 hnsftyC08.9: Vitamin D deficiency, | | [id number]. Stasis dermatitis -This Care Plan was designed by your | | provider to assist in your overall health & well being.Assessment: | | Stasis DermatitisCondition Status: stableGoals: Wear a wide-brimmed hat | | and long sleeves and pants if you are going to be outdoors for a long | | time.Avoid the sun between 10 a.m. and 4 p.m., which is the peak time | | for UV rays.Wear sunscreen on exposed skin. Make sure to use a | | broad-spectrum sunscreen that has a sun protection factor (SPF) of 30 | | or higher. Use it every day, even when it is cloudy.Do not use tanning | | booths or sunlamps.Use lip balm or cream that has sun protection factor | | (SPF) to protect your lips from getting sunburned.Wear sunglasses that | | block UV rays.Follow up: Yearly for skin ttvqcM38.2: Venous | | insufficiency (chronic) (peripheral)13. Chronic kidney disease stage 4 | | -This care plan was designed by your provider to assist in improving | | your overall health and well being.Assessment: Chronic Kidney | | DiseaseCondition Status: StableGOALS for better health: achieve healthy | | weight, be more active, lower blood pressure, lower cholesterol, | | stress reduction, and modify eating habits. If you are a smoker, your | | physician highly recommends you to STOP smoking. If you need help with | | quitting and smoking cessation, talk to your physician in regards to | | the best options for you.WEIGHT should be monitored to achieve optimal | | health.EXERCISE is an important factor to attaining optimal | | health.CARDIO at low intensity. Examples of low intensity exercise | | include: walking, swimming, and stretching.NUTRITION Your provider | | advises lowering salt levels in your diet: limit packaged foods like | | pretzels, chips, pickled foods, cured meats like hawley and salami, | | canned soups, cheeses, and soy sauce. Limiting foods that taste sweet | | including: soda, candy, cake, pie, jam, canned fruit in syrup and | | cookies, limiting foods high in fat like processed meats (sausage), | | nuts, cheeses, butter, and packaged foods with hydrogenated oils. Limit | | foods high in carbs like baked goods, low fat packaged foods, | | potatoes, pizza, and sugary cereals.BLOOD PRESSURE your provider | | recommends 140 or below systolic and 90 or below diastolic as your goal | | BP. Be sure to check your BP with your home blood pressure monitor and | | record your readings in a journal to take to your doctor visits for | | them to be reviewed by your physician.REMINDERS: Check your body, | | especially legs/ankles for excess swelling (edema) and report it to | | your doctor, check your weight daily and record it in your journal to | | take with you to your doctor visits so it can be reviewed with you, | | perform routine monitoring of your blood pressure, decrease salt | | intake, regular exercise (at least 3-5 days per week and 30-45 mins per | | session), inform all physicians along with health career law clerk | | involved in your health care of your chronic kidney disease diagnosis, | | take all medications as prescribed, and try your best not to miss any | | doses. Continue to have fasting blood work performed every 3-6 months | | as directed by your physician and schedule any necessary follow up | | appointments. Report any new or worsening symptoms to your | | physician.Follow up: 3 qtxnznD52.4: Chronic kidney disease, stage 4 | | (severe)14. Type II diabetes mellitus uncontrolled -This care plan was | | designed by your provider to assist in improving your overall health | | and well being.Assessment: Type 2 DMCondition Status: StableGOALS for | | better health: achieve healthy weight, be more active, improve | | mobility, lower blood pressure, lower cholesterol, and modify eating | | habits.WEIGHT should be monitored to achieve optimal health.EXERCISE is | | an important factor to attaining optimal health.CARDIO at low | | intensity. Examples of low intensity exercise include: walking, | | swimming, and stretching.NUTRITION Your provider advises lowering salt | | levels in your diet: limit packaged foods like pretzels, chips, pickled | | foods, cured meats like hawley and salami, canned soups, cheeses, and | | soy sauce. Limiting foods that taste sweet including: soda, candy, | | cake, pie, jam, canned fruit in syrup and cookies, limiting foods high | | in fat like processed meats (sausage), nuts, cheeses, butter, and | | packaged foods with hydrogenated oils. Limit foods high in carbs like | | baked goods, low fat packaged foods, potatoes, pizza, and sugary | | cereals.BLOOD PRESSURE your provider recommends 140 or below systolic | | and 90 or below diastolic as your goal BP.RECOMMENDATIONS: Instructed | | in the correct use of a glucometer, advised to check fasting glucose | | once daily, follow a low cholesterol diet, get yearly flu shots before | | flu season, stay current on your other immunizations such as pneumonia | | (Pneumo 23 and Prevnar 13) & shingles (Shingrix), perform routine | | monitoring of your blood pressure with your home blood pressure cuff, | | exercise regularly, take medication as prescribed, and try your best | | not to miss any medication doses. Continue to have your HgA1c checked | | every 3 months and fasting blood work performed every 3-6 months as | | directed by your physician and schedule any necessary follow up | | appointments.Follow up: 6 [id number]: Type 2 diabetes mellitus with | | diabetic neuropathy, [id number]. Essential hypertension -This care | | plan was designed by your provider to assist in improving your overall | | health and well being.Assessment: HypertensionCondition Status: | | StableGOALS for better health: achieve healthy weight, be more active, | | lower blood pressure, lower cholesterol, stress reduction, and modify | | eating habits.WEIGHT should be monitored to achieve optimal | | health.EXERCISE is an important factor to attaining optimal | | health.NUTRITION Your provider advises lowering salt levels in your | | diet: limit packaged foods like pretzels, chips, pickled foods, cured | | meats like hawley and salami, canned soups, cheeses, and soy sauce. | | Limiting foods that taste sweet including: soda, candy, cake, pie, jam, | | canned fruit in syrup and cookies, limiting foods high in fat like | | processed meats (sausage), nuts, cheeses, butter, and packaged foods | | with hydrogenated oils. Limit foods high in carbs like baked goods, low | | fat packaged foods, potatoes, pizza, and sugary cereals.BLOOD PRESSURE | | your provider recommends 140 or below systolic and 90 or below | | diastolic as your goal BP. Be sure to check your BP with your home | | blood pressure monitor and record your readings in a journal to take to | | your doctor visits for them to be reviewed by your | | physician.REMINDERS: Perform routine monitoring of your blood pressure, | | regular exercise, take all medications as prescribed, and try your | | best not to miss any doses. Continue to have fasting blood work | | performed every 3-6 months as directed by your physician and schedule | | any necessary follow up appointments. Report any new or worsening | | symptoms to your physician.Follow up: 6 [id number]: Essential (primary) | | [id number]. Cardiomyopathy -This care plan was designed by your | | provider to assist in improving your overall health and well | | being.Assessment: CardiomyopathyCondition Status: StableGOALS for | | better health: achieve healthy weight, be more active, lower blood | | pressure, lower cholesterol, stress reduction, and modify eating | | habits.WEIGHT should be monitored to achieve optimal health.EXERCISE is | | an important factor to attaining optimal health.NUTRITION Your | | provider advises lowering salt levels in your diet: limit packaged | | foods like pretzels, chips, pickled foods, cured meats like hawley and | | salami, canned soups, cheeses, and soy sauce. Limiting foods that taste | | sweet including: soda, candy, cake, pie, jam, canned fruit in syrup | | and cookies, limiting foods high in fat like processed meats (sausage), | | nuts, cheeses, butter, and packaged foods with hydrogenated oils. | | Limit foods high in carbs like baked goods, low fat packaged foods, | | potatoes, pizza, and sugary cereals.BLOOD PRESSURE your provider | | recommends 140 or below systolic and 90 or below diastolic as your goal | | BP. Be sure to check your BP with your home blood pressure monitor and | | record your readings in a journal to take to your doctor visits for | | them to be reviewed by your physician.REMINDERS: Perform routine | | monitoring of your blood pressure, regular exercise, take all | | medications as prescribed, and try your best not to miss any doses. | | Continue to have fasting blood work performed every 3-6 months as | | directed by your physician and schedule any necessary follow up | | appointments. Report any new or worsening symptoms to your | | physician.Follow up: 6 [id number]: Cardiomyopathy, unspecifiedPatient | | Instructionscontinue present treatment - go to ER or [facility] if symptoms | | worsenReturn to Office* TRAVIS OMALLEY for ANY 15 at [facility] | | [facility] on 05/12/2019 at 09:30 Heather Sign-OffEncounter | | signed-off by TRAVIS OMALLEY, 05/11/2019. | + + + + + + +---+ + | OUTPATIEN | Admitter: | DOMI_Hot | | | | | T | | Meg | 9 | | Shirley | | | JAZZMINE | Cardiolog | 12:06:00 | | Medical | | | [facility] | y | PM CDT | | Center | | | | Associate | | | Clinics | | | | s | | | | + + + + +---+ + | OUTPATIEN | Admitter: | [facility] | | | [facility] | | T | SHARI | | 9 | | r | | | AALIYAH | Medicine | 04:26:00 | | Physician | | | | | PM CDT | | s Hot | | | | | | | [facility] | | | | | | | [place] | + + + + +---+ + | OUTPATIEN | Admitter: | [facility] | | | [facility] | | T | SHARI | Family | 9 | | r | | | AALIYAH | Medicine | :30:00 | | Physician | | | | | PM CDT | | s Hot | | | | | | | [facility] | | | | | | | [place] | + + + + +---+ + | OUTPATIEN | Admitter: | [facility] | | | [facility] | | T | SHARI | Family | 9 | | r | | | [facility] | Medicine | :: | | Physician | | | | | PM CDT | | s Hot | | | | | | | [facility] | | | | | | | [place] | + + + + +---+ + | OUTPATIEN | Admitter: | [facility] | | | [facility] | | T | SHARI | Family | 9 | | r | | | AALIYAH | Medicine | :28: | | Physician | | | | | PM CDT | | s Hot | | | | | | | [facility] | | | | | | | [facility] | + + + + +---+ + | Outpatien | Attender: | [facility] | | | [facility] | | t | SHARI | Family | 9 | | r | | [facility] Medicine | 02:30:00 | | Physician | | | dmitter: | | PM CDT - | | s Hot | | | SHARI | | | | Meg | | | AALIYAH | | 9 | | [facility] | | | | | 03:26:00 | | | | | | | PM CDT | | | + + + + +---+ + + + | PatientName : ANDIE BEAN (68yo, F) ID# [id number]. Date/Time : | | 05/03/2019 02:30PMDOB : 1950ervice Dept. [facility] | | MedicineProvider : TRAVIS OMALLEYInsuranceMed Primary: UNITED | | HEALTHCARE (MEDICARE REPLACEMENT/ADVANTAGE - PPO)Insurance # : | | [id number]/Group # : [id number] : Wilbert RHOADES Provider | | Name : JONO RHOADESPrescription: OPTUMRX - Member is eligible. | | detailsChief ComplaintRight EdemaPatient's Care TeamPrimary Care | | Provider (Primary Insurance): JONO RHOADES: [address], [place], | | [place] [address], , Referring Provider | | (Primary Insurance): JONO RHOADES: [address], [place] [address], | | , Nurse Practitioner: SHARI | | AALIYAH CNSPrimary Care Provider: Neris SOFIAtient's | | [facility] [place] (ERX): [facility] [address], | | [place] [address], , VitalsHt:5 ft 5 | | in (165.1 cm) 05/03/2019 02:32 pmWt:Not Performed 05/03/2019 02:33 | | pmBP:132/60 sitting R arm 05/03/2019 02:34 dlS4Xur:99% Room Air at Rest | | 05/03/2019 02:33 pmPulse:82 bpm 05/03/2019 02:33 pmAllergiesReviewed | | AllergiesPRAVACHOL: Myalgias (muscle pain), Other - | | FatigueMedicationsReviewed MedicationsName: Adult Aspirin Regimen 81 mg | | tablet,delayed release Take 1 tablet(s) every day by oral route.Date: | | 09/03/18 enteredSource: Kathy ConnerName: Anoro Ellipta 62.5 mcg-25 | | mcg/actuation powder for inhalation INHALE 1 PUFF ONCE EACH DAY | | THANK YOU Date: 10/22/18 filledSource: PRESCRIPTION SOLUTIONSName: | | atorvastatin 40 mg tablet Take 1 tablet(s) every day by oral | | route.Date: 03/14/19 filledSource: PRESCRIPTION SOLUTIONSName: | | Bactrim 400 mg-80 mg tablet Take 1 tablet(s) every 12 hours by oral | | route for 10 days.Date: 05/03/19 prescribedSource: SHARI DURHAM, | | CNSName: carvedilol 6.25 mg tablet Take 1 tablet(s) twice a day by oral | | route.Date: 04/26/19 filledSource: PRESCRIPTION SOLUTIONSName: | | furosemide 40 mg tablet Take 1 tablet(s) twice a day by oral | | route.Date: 04/05/19 filledSource: PRESCRIPTION SOLUTIONSName: | | gabapentin 600 mg tablet Take 1 tablet(s) every day by oral route.Date: | | 12/15/18 enteredSource: Pilar Law: HumaLOG KwikPen (U-100) | | Insulin 100 unit/mL subcutaneous sliding scale with 5 units being most | | injected PRNDate: 06/01/17 filledSource: PRESCRIPTION SOLUTIONSName: | | Lantus Solostar U-100 Insulin 100 unit/mL (3 mL) subcutaneous pen | | Inject 15 unit(s) every day by subcutaneous route.Date: 03/21/19 | | filledSource: PRESCRIPTION SOLUTIONSName: Lantus U-100 Insulin 100 | | unit/mL subcutaneous solutionDate: 04/20/19 filledSource: | | PRESCRIPTION SOLUTIONSName: omeprazole 20 mg capsule,delayed release | | Take 1 capsule(s) every day by oral route.Date: 04/12/19 | | filledSource: PRESCRIPTION SOLUTIONSName: ProAir HFA 90 mcg/actuation | | aerosol inhaler Inhale 2 puff(s) every 4 hours by inhalation | | route.Date: 08/27/17 filledSource: PRESCRIPTION SOLUTIONSName: | | Questran 4 gram oral powder Take 1 scoop(s) every day by oral | | route.Note: for diarrheaDate: 09/17/18 prescribedSource: JONO | | Ellen RHOADES: sodium bicarbonate 650 mg tablet Take 1 tablet(s) every | | day by oral route.Date: 04/12/19 enteredSource: Meghan | | MolnairdName: sulfamethoxazole 800 mg-trimethoprim 160 mg tabletDate: | | 05/03/19 filledSource: PRESCRIPTION SOLUTIONSName: TRUEplus Pen | | Needle 31 gauge x 3/16"Date: 03/03/17 filledSource: PRESCRIPTION | | SOLUTIONSName: Tums 2 - 400mg tabs with every mealDate: 04/12/19 | | enteredSource: Meghan MolnairdName: Vitamin D2 50,000 unit capsule | | Take 1 capsule(s) every week by oral route.Date: 11/22/18 | | renewedSource: JONO RHOADES DOVaccinesReviewed VaccinesVaccine Type: | | influenza, high dose seasonalDate: 04/12/19Amt.: 0.5 mLRoute: | | IntramuscularSite: Deltoid, RightNDC: [id number] #: [id number].: | | Sanofi PasteurExp. Date: 11/08/19Date on VIS: 03/10/19VIS Given: | | 04/12/19Vaccinator: Meghan MolnairdVaccine Type: influenza, high dose | | seasonalDate: 04/21/18Amt.: 0.5 mLRoute: IntramuscularSite: Deltoid, | | RightNDC:Lot #: [id number].: Sanofi PasteurExp. Date: 10/23/18Date on | | VIS: 03/02/15VIS Given: 04/21/18Vaccinator: Shari Durham, CNSVaccine | | Type: influenza, high dose seasonalDate: | | 06/02/17mt.:Route:Site:NDC:Lot #:[id number].:Exp. Date:Date on VIS:VIS | | Given:Account Solutions Analyst:Vaccine Type: influenza, injectable, quadrivalentDate: | | 06/02/17mt.:Route:Site: Deltoid, RightNDC:Lot #: [id number].: | | SeqirusExp. Date: 01/23/18Date on VIS:VIS Given: | | 06/02/17Vaccinator:Vaccine Type: pneumococcal conjugate PCV 13Date: | | 11/09/17Amt.: 0.5 mLRoute: IntramuscularSite: Deltoid, RightDCC:Lot #: | | [id number].: Other manufacturerExp. Date: 09/25/19Date on VIS: | | 05/31/15VIS Given: 11/09/17Vaccinator: Meghan MolisrraelrdVaccine Type: | | pneumococcal polysaccharide [id number]: 05/27/16Amt.:Route:Site:NDC:Lot | | #:Mfr.:Exp. Date:Date on VIS:VIS Given:Account Solutions Analyst:ProblemsReviewed | | Problems* Type II diabetes mellitus uncontrolled - Onset: 10/03/2017* | | Diabetic neuropathy* Vitamin D deficiency - Onset: 06/16/2018* Mixed | | hyperlipidemia - Onset: 10/03/2017* Tobacco user - Onset: 10/03/2017* | | Essential hypertension* Cardiomyopathy - Onset: 2017* Stasis | | dermatitis - Onset: 2017* Chronic obstructive lung disease - | | Onset: 08/27/2017* Chronic kidney disease stage 4 - Onset: 09/10/2018* | | Lumbar radiculopathy* Postmenopausal osteoporosis* Tremor* Hepatitis C | | antibody test positive - Onset: 12/28/2017* Amputated below knee - | | Onset: 10/03/2017Family HistoryReviewed Family HistoryBrother- Heart | | disease- all 3 of this- Type 2 diabetes mellitusMother- Pulmonary | | emphysema- Disorder of thyroid glandPaternal Grandmother- Malignant | | tumor of breastSister- Malignant tumor of breast- Type 2 diabetes | | mellitusSocial HistoryDiscussed Social HistoryFamily Medicine and | | Medical Wellness Visit/IPPEAble to Care for Self: NLive alone or with | | others?: with othersAdvance directive: Marycruz you currently employed?: | | NEducation: 12Occupation: DisabledNumber of children: 3Guns present in | | home: NAlcohol intake: NoneCaffeine intake: OccasionalIllicit drugs: | | NODiet: DiabeticExercise level: NoneHard of hearing or deaf in one or | | both ears?: NLegally blind in one or both eyes?: NSexual orientation: | | HeterosexualSmoke alarm in home: YTobacco Smoking Status: Current every | | day smokerChewing tobacco: noneSmoker (1 07/28 PPD)Has smoked since age: | | 25Tobacco-years of use: 25Passive smoke exposure?: YSeat belts used | | routinely: YSunscreen used routinely: NIs the patient ambulatory?: Yes: | | limited self-mobility with assistive device(s); generally relies on | | wheeled mobilityMost Recent Tobacco Use Screenin12/15/2018Tobacco | | cessation counseling provided date: 12/15/2018Single or multi-level | | home/work?: single level homeMarital status: MarriedSurgical | | HistoryReviewed Surgical History* Cholecystectomy* Amputation - | | 02/25/2016 - LT leg amputation above the knee* Colonoscopy - | | 02/24/2014* Stent - 07/27/2006 - cardiac stent* delivery - | | 07/27/1975GYN 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 I:AB. S:ECTOPICS:MULTIPLE:LIVINPast Medical | | HistoryReviewed Past Medical HistoryOther: Y - Dialysis from 02/2016 to | | 10/2016 with fistula in LT armStent: Y - cardiac stentNotes: Broke LT | | leg on 01/21/2016 and had internal fixation performed but after she was | | discharged, she was admitted back into the hospital 2 weeks later with | | severe infection. Her LT leg (from knee down) amputated 03/03/2016 | | from severe infection while in [facility].HPIEdemaReported by | | patient.Location: right leg up to kneeQuality: painful (to | | stand)Duration: constantOnset/Timing: abrupt onset; started 1 weeks | | agoContext: no prior history of deep vein thrombosis; no new | | medications; normal salt intake; prior history of edemaModifying | | Factors: relieved by position (elevating legs)Associated Symptoms: no | | shortness of breath; no cough; red and weeping up to middle of lower | | leg.Notes:She was seen by Dr. Hillman this week and started her on Cipro - | | on 04-20-19 and was seen on 04-29-19 by Nephrology and was told to stop | | her abx. Lab done on 04-25-19 by Nephrology. SHe is end stage KD but | | refuses dialysisROSPatient reports no fever, no significant weight | | gain, and no significant weight loss; + drowsiness. She reports | | shortness of breath (baseline). She reports arthralgias/joint pain, | | back pain, neck pain, and difficulty walking; left amputee. Skin:: | | cellulitis right lower extremity. She reports tremor. She reports | | fatigue. She reports no chest pain. She reports no swollen glands.ROS | | as noted in the HPIPhysical ExamPatient is a 68-year-old | | female.Constitutional: General Appearance: well-nourished and | | well-developed. Level of Distress: chronically ill. Ambulation: in | | wheelchair.Psychiatric: Mental Status: active and alert.Eyes: Pupils: | | PERRLA. EOM: EOMI.ENMT: Ears: no lesions on external ear and TMs clear. | | Hearing: no hearing loss.Lungs: Auscultation: decreased breath | | sounds.Cardiovascular: Heart Auscultation: RRR.Abdomen: Bowel Sounds: | | normal. Inspection and Palpation: soft and epigastric tenderness. | | Liver: non-tender and no hepatomegaly. Spleen: | | non-tender.Musculoskeletal:: Extremities: left BKA, RLE with edema 2+ | | with cellulitis.Neurologic: Sensation Right Foot: right facial weakness | | with + [place] sign-improved.Skin: Lesion Type: location: RLE. Color: | | pink. Location/Description: well demarcated. Infectious signs: no | | fluctuance, induration, or lymphangitic streaking and warmth, erythema, | | swelling, and tenderness; weaping.Foot Exam:: Right Foot: right foot | | toes were examined and digital hair absent right; Marked swelling and | | loss of sensation. Left Foot: amputated.Assessment / Plan1. Cellulitis | | of lower limbL03.119: Cellulitis of unspecified part of limb* Bactrim | | 400 mg-80 mg tablet -Take 1 tablet(s) every 12 hours by oral route for | | 10 days. Qty: 20 tablet(s) Refills: 0 Pharmacy: [facility] | [facility] [place] [facility]Patient Instructionsadvised to elevate her foot - | | use warm compresses- take meds as prescribed- discussed plan and meds | | with Dr. Rhoades in light of her KFDiscussion Notesadvised to go to ER | | or FC[facility] or call for earlier appt if symptoms worsened. Discussed risk of | | treatment due to KFReturn to Office* to see TRAVIS OMALLEY at | | [facility] on or around 05/11/2019Encounter | | Sign-OffEncounter signed-off by TRAVIS OMALLEY, 05/08/2019. | + + + + + + +---+ + | OUTPATIEN | Admitter: | [facility] | | | [facility] | | T | SHARI | Family | 9 | | r | | | AALIYAH | Medicine | 05:04:00 | | Physician | | | | | PM CDT | | s Hot | | | | | | | [place] | | | | | | | Sadaf | + + + + +---+ + | OUTPATIEN | Attender: | Owen | | | [facility] | | T | Jono | Family | 9 | | r | | | Jf | Medicine | 03:50:00 | | Physician | | | | | PM CDT | | s Hot | | | | | | | [place] | | | | | | | [place] | + + + + +---+ + | OUTPATIEN | Attender: | [place] | | | [facility] | | T | Jono | Family | 9 | | r | | | Jf | Medicine | 03:50:00 | | Physician | | | | | PM CDT | | s Hot | | | | | | | [place] | | | | | | | Sadaf | + + + + +---+ + | OUTPATIEN | Attender: | [place] | | | [facility] | | T | Jono | Family | 9 | | r | | | Jf | Medicine | 03:50:00 | | Physician | | | | | PM CDT | | s Hot | | | | | | | [place] | | | | | | | [place] | + + + + +---+ + | OUTPATIEN | Attender: | Owen | | | [facility] | | T | Jono | Family | 9 | | r | | | Jf | Medicine | 03:50:00 | | Physician | | | | | PM CDT | | s Hot | | | | | | | [place] | | | | | | | Sadaf | + + + + +---+ + | OUTPATIEN | Attender: | [place] | | | [facility] | | T | Jono | Family | 9 | | r | | | Jf | Medicine | 08:55:00 | | Physician | | | | | PM CDT | | s Hot | | | | | | | [place] | | | | | | | Sadaf | + + + + +---+ + | OUTPATIEN | Attender: | [place] | | | [facility] | | T | Jono | Family | 9 | | r | | | Jf | Medicine | 08:53:00 | | Physician | | | | | PM CDT | | s Hot | | | | | | | [place] | | | | | | | [place] | + + + + +---+ + | OUTPATIEN | Attender: | [place] | | | [facility] | | T | Jono | Family | 9 | | r | | | Jf | Medicine | 08:53:00 | | Physician | | | | | PM CDT | | s Hot | | | | | | | [place] | | | | | | | [place] | + + + + +---+ + | OUTPATIEN | Admitter: | [place] | | | [facility] | | T | SHARI | Family | 9 | | r | | | AALIYAH | Medicine | :27:00 | | Physician | | | | | PM CDT | | s Hot | | | | | | | [place] | | | | | | | [place] | + + + + +---+ + | OUTPATIEN | Attender: | [facility] | | | [facility] | | T | Jono | Family | 9 | | r | | | Jf | Medicine | 01:04: | | Physician | | | | | PM CDT | | s Hot | | | | | | | [place] | | | | | | | [place] | + + + + +---+ + | OUTPATIEN | Admitter: | [facility] | | | [facility] | | T | SHARI | Family | 9 | | r | | | AALIYAH | Medicine | : | | Physician | | | | | PM CDT | | s Hot | | | | | | | [place] | | | | | | | Sadaf | + + + + +---+ + | OUTPATIEN | Admitter: | Owen | | | [facility] | | T | SHARI | Family | 9 | | r | | | AALIYAH | Medicine | : | | Physician | | | | | AM CDT | | s Hot | | | | | | | [place] | | | | | | | Sadaf | + + + + +---+ + | Outpatien | Attender: | [facility] | | | [facility] | | t | Jono | Family | 9 | | r | | | GlynneyAdm | Medicine | :46: | | Physician | | | itter: | | AM CDT - | | s Hot | | | SHARI | | | | [place] | | | AALIYAH | | 9 | | [place] | | | | | 12:27:00 | | | | | | | PM CDT | | | + + + + +---+ + + + | PatientName : ANDIE BEAN (68yo, F) ID# [id number]. Date/Time : | | 04/12/2019 10:30AMD[facility] : [facility] : [facility] | | MedicineProvider : Shea SOFIAcritical access hospitalMed Primary: [place] | | HEALTHCARE (MEDICARE REPLACEMENT/ADVANTAGE - PPO)Insurance # : | | [id number]/Group # : [id number]: [id number] - Member is | | eligible. detailsChief Complaintabdominal painFollowup: Type II | | diabetes mellitus uncontrolledFollowup: TremorPatient's Care TeamNurse | | Practitioner: SHARI DURHAM [facility] Care Provider: JONO RHOADES, | | DOPatient's PharmaciesCOPPER SPRINGS [facility] ([facility]): [address] | | [address] [place] [address], , Fax ([phone]) | | [phone]:5 ft 5 in (165.1 cm) 04/12/2019 11:17 amWt:151 lbs | | With clothes (68.49 kg) 04/12/2019 11:17 amBMI:25.1 04/12/2019 11:17 | | amBP:128/78 sitting R arm 04/12/2019 11:18 nuL8Sve:98% Room Air at Rest | | 04/12/2019 11:18 amPain Scale:8 04/12/2019 11:19 amPulse:70 bpm | | 04/12/2019 11:18 amRR:12 04/12/2019 11:18 amT:97.6 F? ear (36.44 C) | | 04/12/2019 11:19 amAllergiesReviewed AllergiesPRAVACHOL: Myalgias | | (muscle pain), Other - FatigueMedicationsReviewed MedicationsName: | | Adult Aspirin Regimen 81 mg tablet,delayed release Take 1 tablet(s) | | every day by oral route.Date: 09/03/18 enteredSource: Kathy | | ConnerName: Anoro Ellipta 62.5 mcg-25 mcg/actuation powder for | | inhalation INHALE 1 PUFF ONCE EACH DAY THANK YOU Date: 10/22/18 | | filledSource: PRESCRIPTION SOLUTIONSName: atorvastatin 40 mg tablet | | Take 1 tablet(s) every day by oral route.Date: 03/14/19 filledSource: | | PRESCRIPTION SOLUTIONSName: carvedilol 6.25 mg tablet Take 1 tablet(s) | | twice a day by oral route.Date: 03/29/19 filledSource: PRESCRIPTION | | SOLUTIONSName: furosemide 40 mg tablet Take 1 tablet(s) twice a day by | | oral route.Date: 04/05/19 filledSource: PRESCRIPTION SOLUTIONSName: | | gabapentin 600 mg tablet Take 1 tablet(s) every day by oral route.Date: | | 12/15/18 enteredSource: Pilar Law: HumaLOG KwsantaPen (U-100) | | Insulin 100 unit/mL subcutaneous sliding scale with 5 units being most | | injected PRNDate: 06/01/17 filledSource: PRESCRIPTION SOLUTIONSName: | | Lantus Solostar U-100 Insulin 100 unit/mL (3 mL) subcutaneous pen | | Inject 15 unit(s) every day by subcutaneous route.Date: 03/21/19 | | filledSource: PRESCRIPTION SOLUTIONSName: omeprazole 20 mg | | capsule,delayed release Take 1 capsule(s) every day by oral route.Date: | | 04/12/19 prescribedSource: Ellen SOFIA: ProAir HFA 90 | | mcg/actuation aerosol inhaler Inhale 2 puff(s) every 4 hours by | | inhalation route.Date: 08/27/17 filledSource: PRESCRIPTION | | SOLUTIONSName: Questran 4 gram oral powder Take 1 scoop(s) every day by | | oral route.Note: for diarrheaDate: 09/17/18 prescribedSource: | | Ellen SOFIA: sodium bicarbonate 650 mg tablet Take 1 | | tablet(s) every day by oral route.Date: 04/12/19 enteredSource: | | Meghan MolnairdName: TRUEplus Pen Needle 31 gauge x 10/09"Date: | | 03/03/17 filledSource: PRESCRIPTION SOLUTIONSName: Tums 2 - 400mg | | tabs with every mealDate: 04/12/19 enteredSource: Meghan | | MolnairdName: Vitamin D2 50,000 unit capsule Take 1 capsule(s) every | | week by oral route.Date: 11/22/18 renewedSource: JONO RHOADES, | | DOVaccinesReviewed VaccinesVaccine Type: influenza, high dose | | seasonalDate: 04/12/19Amt.: 0.5 mLRoute: IntramuscularSite: Deltoid, | | RightND: [id number] #: [id number].: Sanofi PasteurExp. Date: | | 11/08/19Date on VIS: 03/10/19VIS Given: 04/12/19Vaccinator: Meghan | | MolnairdVaccine Type: influenza, high dose seasonalDate: 04/21/18Amt.: | | 0.5 mLRoute: IntramuscularSite: Deltoid, RightNDC:Lot #: [id number].: | | Sanofi PasteurExp. Date: 10/23/18Date on VIS: 03/02/15VIS Given: | | 04/21/18Vaccinator: Shari Durham, CNSVaccine Type: influenza, high | | dose seasonalDate: 06/02/17mt.:Route:Site:[facility]:Lot #:[id number].:Exp. | | Date:Date on VIS:VIS Given:Account Solutions Analyst:Vaccine Type: influenza, | | injectable, quadrivalentDate: 06/02/17mt.:Route:Site: Deltoid, | | RightNDC:Lot #: [id number].: SeqirusExp. Date: 01/23/18Date on | | VIS:VIS Given: 06/02/17Vaccinator:Vaccine Type: pneumococcal conjugate | | PCV 13Date: 11/09/17Amt.: 0.5 mLRoute: IntramuscularSite: Deltoid, | | RightNDC:Lot #: [id number].: Other manufacturerExp. Date: 09/25/19Date | | on VIS: 05/31/15VIS Given: 11/09/17Vaccinator: Meghan MolnairdVaccine | | Type: pneumococcal polysaccharide [id number]: | | 05/27/16Amt.:Route:Site:NDC:Lot #:[id number].:Exp. Date:Date on VIS:VIS | | Given:Account Solutions Analyst:ProblemsReviewed Problems* Tremor* Vitamin D | | deficiency - Onset: 06/16/2018* Hepatitis C antibody test positive - | | Onset: 12/28/2017* Essential hypertension* Postmenopausal osteoporosis* | | Lumbar radiculopathy* Diabetic neuropathy* Cardiomyopathy - Onset: | | 2017* Stasis dermatitis - Onset: 2017* Mixed hyperlipidemia | | - Onset: 10/03/2017* Tobacco user - Onset: 10/03/2017* Type II | | diabetes mellitus uncontrolled - Onset: 10/03/2017* Amputated below | | knee - Onset: 10/03/2017* Chronic obstructive lung disease - Onset: | | 08/27/2017* Chronic kidney disease stage 4 - Onset: 09/10/2018Family | | HistoryReviewed Family HistoryBrother- Heart disease- all 3 of | | this- Type 2 diabetes mellitusMother- Pulmonary emphysema- Disorder of | | thyroid glandPaternal Grandmother- Malignant tumor of breastSister- | | Malignant tumor of breast- Type 2 diabetes mellitusSocial HistorySocial | | History not reviewed (last reviewed 12/15/2018)Family Medicine and | | Medical Wellness Visit/IPPEAble to Care for Self: NLive alone or with | | others?: with othersAdvance directive: Marycruz you currently employed?: | | NEducation: 12Occupation: DisabledNumber of children: 3Guns present in | | home: NAlcohol intake: NoneCaffeine intake: OccasionalIllicit drugs: | | NODiet: DiabeticExercise level: NoneHard of hearing or deaf in one or | | both ears?: NLegally blind in one or both eyes?: NSexual orientation: | | HeterosexualSmoke alarm in home: YTobacco Smoking Status: Current every | | day smokerChewing tobacco: noneSmoker (1 07/28 PPD)Has smoked since age: | | 25Tobacco-years of use: 25Passive smoke exposure?: YSeat belts used | | routinely: YSunscreen used routinely: NIs the patient ambulatory?: Yes: | | limited self-mobility with assistive device(s); generally relies on | | wheeled mobilityMost Recent Tobacco Use Screenin12/15/2018Tobacco | | cessation counseling provided date: 12/15/2018Single or multi-level | | home/work?: single level homeMarital status: MarriedSurgical | | HistoryReviewed Surgical History* Cholecystectomy* Amputation - | | 02/25/2016 - LT leg amputation above the knee* Colonoscopy - | | 02/24/2014* Stent - 07/27/2006 - cardiac stent* delivery - | | 07/27/1975GYN 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 I:AB. | | S:ECTOPICS:MULTIPLE:LIVINPast Medical HistoryPast Medical History | | not reviewed (last reviewed 12/15/2018)Other: Y - Dialysis from 02/2016 | | to 10/2016 with fistula in LT armStent: Y - cardiac stentNotes: Broke | | LT leg on 01/21/2016 and had internal fixation performed but after she | | was discharged, she was admitted back into the hospital 2 weeks later | | with severe infection. Her LT leg (from knee down) amputated 03/03/2016 | | from severe infection while in [facility].HPIAbdominal | | PainReported by patient.Location: epigastricQuality: pain; | | bloatingSeverity: moderateDuration: intermittentOnset/Timing: | | suddenAssociated Symptoms: no feverDiabetes F/UReported by | | patient.Review finger sticks: 180Labs: last A1C result: 9.5 on | | 01.10.2019Context: home blood sugar range highAssociated Symptoms: no | | dizziness; no headaches; no increased thirst; no increased | | urinationNotes:TremorsReported by patient.Hand Dominance: | | rightLocation: in changing locations (bilateral hands but not at same | | time)Quality: no patternsSeverity: mildDuration: started: (back about a | | month ago)Onset/Timing: worseAssociated Symptoms: fatiguePatient will | | be due A1c tomorrow.ROSConstitutional: Constitutional: no significant | | weight gain or loss and no fever; + drowsiness.Cardiovascular: | | Cardiovascular: no chest pain.Respiratory: Respiratory: shortness of | | breath (baseline).Musculoskeletal: Musculoskeletal: arthralgias/joint | | pain, back pain, neck pain, and difficulty walking.Neurologic: | | Neurologic: tremor.Endocrine: Endocrine: fatigue.ROS as noted in the | | HPIPhysical ExamPatient is a 68-year-old female.Constitutional: General | | Appearance: well-nourished and well-developed. Level of Distress: | | chronically ill. Ambulation: in wheelchair.Psychiatric: Mental Status: | | active and alert.Eyes: Pupils: PERRLA. EOM: EOMI.ENMT: Ears: no lesions | | on external ear and TMs clear. Hearing: no hearing loss.Lungs: | | Auscultation: decreased breath sounds.Cardiovascular: Heart | | Auscultation: RRR and CARLIE (3/6).Abdomen: Bowel Sounds: normal. | | Inspection and Palpation: soft and epigastric tenderness. Liver: | | non-tender and no hepatomegaly. Spleen: non-tender.Musculoskeletal:: | | Extremities: left BKA, RLE with 2+ edema up into thigh.Neurologic: | | Sensation Right Foot: right facial weakness with + [place] | | sign-improved.Skin: Lesion Type: location: RLE. Color: pink. | | Location/Description: well demarcated. Infectious signs: no warmth, | | swelling, tenderness, fluctuance, induration, or lymphangitic | | streaking; serous drainage.Foot Exam:: Right Foot: right foot toes were | | examined and digital hair absent right; Marked swelling and loss of | | sensation. Left Foot: amputated.Procedure DocumentationCare | | Coordination- Initial Visit:Per provider suggestion, patient received | | care coordination due to diagnosis identified.Assessment / Plan1. | | Abdominal pain -Abdominal Pain: Care InstructionsStableYour Care | | InstructionsAbdominal pain has many possible causes. Some aren't | | serious and get better on their own in a few days. Others need more | | testing and treatment. If your pain continues or gets worse, you need | | to be rechecked and may need more tests to find out what is wrong. You | | may need surgery to correct the problem. Don't ignore new symptoms, | | such as fever, nausea and vomiting, urination problems, pain that gets | | worse, and dizziness. These may be signs of a more serious problem. | | Your doctor may have recommended a follow-up visit in the next 8 to 12 | | hours. If you are not getting better, you may need more tests or | | treatment. The doctor has checked you carefully, but problems can | | develop later. If you notice any problems or new symptoms, get medical | | treatment right away.Follow-up care is a fung part of your treatment and | | safety. Be sure to make and go to all appointments, and call your | | doctor if you are having problems. It's also a good idea to know your | | test results and keep a list of the medicines you take.How can you care | | for yourself at home? Rest until you feel better. To prevent | | dehydration, drink plenty of fluids, enough so that your urine is light | | yellow or clear like water. Choose water and other caffeine-free clear | | liquids until you feel better. If you have kidney, heart, or liver | | disease and have to limit fluids, talk with your doctor before you | | increase the amount of fluids you drink. If your stomach is upset, eat | | mild foods, such as rice, dry toast or crackers, bananas, and | | applesauce. Try eating several small meals instead of two or three | | large ones. Wait until 48 hours after all symptoms have gone away | | before you have spicy foods, alcohol, and drinks that contain caffeine. | | Do not eat foods that are high in fat. Avoid | | anti-inflammatorymedicines such as aspirin, ibuprofen (Advil, Motrin), | | and naproxen (Aleve). These can cause stomach upset. Talk to your | | doctor if you take daily aspirin for another health problem.Follow uP 6 | | [id number]: Unspecified abdominal pain* XR, ABDOMEN* ABDOMINAL PAIN: | | CARE INSTRUCTIONS* COMPLETE BLOOD COUNT WITH AUTO DIFF* omeprazole 20 | | mg capsule,delayed release -Take 1 capsule(s) every day by oral route. | | Qty: 30 capsule(s) Refills: 5 Pharmacy: [facility] - | | OWEN* COMPREHENSIVE METABOLIC PANEL* AMYLASE* LIPASE2. Type II | | diabetes mellitus uncontrolled -This care plan was designed by your | | provider to assist in improving your overall health and well | | being.Assessment: Type 2 DMCondition Status: StableGOALS for better | | health: achieve healthy weight, be more active, improve mobility, lower | | blood pressure, lower cholesterol, and modify eating habits.WEIGHT | | should be monitored to achieve optimal health.EXERCISE is an important | | factor to attaining optimal health.CARDIO at low intensity. Examples of | | low intensity exercise include: walking, swimming, and | | stretching.NUTRITION Your provider advises lowering salt levels in your | | diet: limit packaged foods like pretzels, chips, pickled foods, cured | | meats like hawley and salami, canned soups, cheeses, and soy sauce. | | Limiting foods that taste sweet including: soda, candy, cake, pie, jam, | | canned fruit in syrup and cookies, limiting foods high in fat like | | processed meats (sausage), nuts, cheeses, butter, and packaged foods | | with hydrogenated oils. Limit foods high in carbs like baked goods, low | | fat packaged foods, potatoes, pizza, and sugary cereals.BLOOD PRESSURE | | your provider recommends 140 or below systolic and 90 or below | | diastolic as your goal BP.RECOMMENDATIONS: Instructed in the correct | | use of a glucometer, advised to check fasting glucose once daily, | | follow a low cholesterol diet, get yearly flu shots before flu season, | | stay current on your other immunizations such as pneumonia (Pneumo 23 | | and Prevnar 13) & shingles (Shingrix), perform routine monitoring of | | your blood pressure with your home blood pressure cuff, exercise | | regularly, take medication as prescribed, and try your best not to miss | | any medication doses. Continue to have your HgA1c checked every 3 | | months and fasting blood work performed every 3-6 months as directed by | | your physician and schedule any necessary follow up | | appointments.Follow up: 6 [id number]: Type 2 diabetes mellitus with | | hyperglycemia* TYPE 2 DIABETES: CARE INSTRUCTIONS3. Influenza | | [id number]: Encounter for immunization* INFLUENZA (FLU) VACCINE: | | CARE INSTRUCTIONS* FLUZONE HIGH-DOSE 2019-20 (PF) 180 MCG/0.5 ML | | INTRAMUSCULAR SYRINGE -.5ml IM injection x once influenza, high | | dose seasonal Site: Deltoid, Right Qty: 0.5 mL Administered | | 04/12/2019 Perform Date: 04/12/20194. Essential hypertension -This | | care plan was designed by your provider to assist in improving your | | overall health and well being.Assessment: HypertensionCondition Status: | | StableGOALS for better health: achieve healthy weight, be more active, | | lower blood pressure, lower cholesterol, stress reduction, and modify | | eating habits.WEIGHT should be monitored to achieve optimal | | health.EXERCISE is an important factor to attaining optimal | | health.NUTRITION Your provider advises lowering salt levels in your | | diet: limit packaged foods like pretzels, chips, pickled foods, cured | | meats like hawley and salami, canned soups, cheeses, and soy sauce. | | Limiting foods that taste sweet including: soda, candy, cake, pie, jam, | | canned fruit in syrup and cookies, limiting foods high in fat like | | processed meats (sausage), nuts, cheeses, butter, and packaged foods | | with hydrogenated oils. Limit foods high in carbs like baked goods, low | | fat packaged foods, potatoes, pizza, and sugary cereals.BLOOD PRESSURE | | your provider recommends 140 or below systolic and 90 or below | | diastolic as your goal BP. Be sure to check your BP with your home | | blood pressure monitor and record your readings in a journal to take to | | your doctor visits for them to be reviewed by your | | physician.REMINDERS: Perform routine monitoring of your blood pressure, | | regular exercise, take all medications as prescribed, and try your | | best not to miss any doses. Continue to have fasting blood work | | performed every 3-6 months as directed by your physician and schedule | | any necessary follow up appointments. Report any new or worsening | | symptoms to your physician.Follow up: 6 [id number]: Essential (primary) | | hypertension* HIGH BLOOD PRESSURE: CARE INSTRUCTIONS* LEARNING ABOUT | | HIGH BLOOD PRESSURE5. Tremor -Benign Essential Tremor: Care | | Instructions Your Care | | InstructionsBenign essential tremor is a medical term for shaking that | | you can't control. Your hand or fingers may shake when you lift a cup | | or point at something. Or your voice may shake when you speak. This | | type of tremor is not harmful. It is not caused by a stroke or | | Parkinson's disease.Some things can affect how much you shake. For | | example, drinking or eating something with caffeine may make tremors | | worse for a while. Some medicines also can increase tremors. These | | include antidepressants and too much thyroid replacement. Talk to your | | doctor if you think one of your medicines makes your tremors worse. If | | you are self-conscious about your tremors, there are some things you | | can do to reduce them or make them less noticeable. This includes | | taking medicine.Follow-up care is a fung part of your treatment and | | safety. Be sure to make and go to all appointments, and call your | | doctor if you are having problems. It's also a good idea to know your | | test results and keep a list of the medicines you take. How can you | | care for yourself at home? Take your medicines exactly as prescribed. | | Call your doctor if you think you are having a problem with your | | medicine. Some medicines that help control tremors have to be taken | | every day, even if you are not having tremors. You will get more | | details on the specific medicines your doctor prescribes. Get plenty of | | rest.* Eat a balanced, healthy diet.* Try to reduce stress. Regular | | exercise and massages may help. Limit alcohol. Heavy drinking can make | | your tremors worse. Avoid drinks or foods with caffeine if they make | | your tremors worse. These include tea, cola, coffee, and chocolate. | | Wear a heavy bracelet or watch. This adds a little weight to your hand. | | The extra weight may reduce tremors. Drink from cups or glasses that | | are only half full. You may also want to try drinking with a straw. | | When should you call for help?Watch closely for changes in your health, | | and be sure to contact your doctor if:* You notice your tremors are | | getting worse. You can't do your everyday activities because of your | | tremors.* You are sad and embarrassed about your shaking.R25.1: Tremor, | | unspecified6. Vitamin D deficiency -This care plan was designed by | | your provider to assist in improving your overall health and well | | being.Assessment: Vitamin DeficiencyCondition Status: StableGOALS for | | better health: achieve healthy weight, be more active, lower blood | | pressure, lower cholesterol, and modify eating habits.WEIGHT should be | | monitored to achieve optimal health.EXERCISE is an important factor to | | attaining optimal health.NUTRITION Your provider advises increases your | | intake of vitamin rich foods such as chicken liver, greens (such as | | beans, broccoli, etc). Limit foods high in carbs like baked goods, low | | fat packaged foods, potatoes, pizza, and sugary cereals.REMINDERS: | | Continue to have fasting blood work performed every 3-6 months as | | directed by your physician. Take your medications or OTC suppliments as | | directed by your physician trying your best not to miss any doses and | | schedule any necessary follow up appointments. Report any new or | | worsening symptoms to your doctor.Follow up: 6 [id number]: Vitamin D | | deficiency, unspecified7. Hepatitis C antibody test positive -This Care | | Plan was designed by your Provider to assist in improving your overall | | health & well beingAssessment: Hepatitis CCondition Status: | | stableGOALS: Be safe with medicines. If your doctor prescribes | | antiviral medicine, take it exactly as prescribed. Call your doctor if | | you think you are having a problem with your medicine.Do not drink | | alcohol. Alcohol can damage the liver. Tell your doctor if you need | | help to quit. Counseling, support groups, and sometimes medicines can | | help you stay sober.Do not take drugs or herbal medicines. They can | | make liver problems worse.Make sure your doctor knows all of the | | medicines you take. Some medicines, such as acetaminophen (Tylenol), | | can make liver problems worse. Do not take any new medicines unless | | your doctor tells you to. This includes bgpb-ttc-kfqonxf | | medicines.Maintain a healthy lifestyle. Get plenty of exercise if you | | feel up to it. Eat a healthy diet.Drink plenty of fluids, enough so | | that your urine is light yellow or clear like water. If you have | | kidney, heart, or liver disease and have to limit fluids, talk with | | your doctor before you increase the amount of fluids you drink.Get the | | vaccines (if you have not already) to protect yourself from hepatitis A | | and hepatitis B, influenza, and pneumococcus.The infection can make | | you itch. Keep cool and stay out of the sun. Try to wear cotton | | clothing. Talk to your doctor about using unue-ucx-oxadfnd medicines | | for itching. These include diphenhydramine (Benadryl) and | | chlorpheniramine (Chlor-Trimeton). Follow the instructions on the | | label.If you feel depressed, talk to your doctor about treatment. Many | | people who have long-term illnesses get depressed. Keep in mind that | | antiviral medicine can make depression worse.Follow up: 6 [id number]: | | Personal history of other infectious and parasitic diseases8. | | Postmenopausal osteoporosis -This care plan was designed by your | | provider to assist in improving your overall health and well | | being.Assessment: OsteoporosisCondition Status: StableGOALS for better | | health: achieve healthy weight, be more active, lower blood pressure, | | lower cholesterol, and modify eating habits.WEIGHT should be monitored | | to achieve optimal health.EXERCISE is an important factor to attaining | | optimal health.NUTRITION Your provider advises lowering salt levels in | | your diet: limit packaged foods like pretzels, chips, pickled foods, | | cured meats like hawley and salami, canned soups, cheeses, and soy | | sauce. Limiting foods that taste sweet including: soda, candy, cake, | | pie, jam, canned fruit in syrup and cookies, limiting foods high in fat | | like processed meats (sausage), nuts, cheeses, butter, and packaged | | foods with hydrogenated oils. Limit foods high in carbs like baked | | goods, low fat packaged foods, potatoes, pizza, and sugary | | cereals.BLOOD PRESSURE your provider recommends 140 or below systolic | | and 90 or below diastolic as your goal BP.RECOMMENDATIONS given | | include: continue to have Bone Density test performed every 2 years, | | perform weight-bearing exercise (i.e. walking) 3-5 days a week for at | | least 30 mins at a time, Vitamin D supplementation, avoid alcohol, take | | medications as directed by your physician trying not to miss any | | doses, follow up with physician as directed, and report any new or | | worsening symptoms to your physician as soon as possible.Follow up: 6 | | [id number]: Age-related osteoporosis without current pathological | | fracture9. Lumbar radiculopathy -This care plan was designed by your | | provider to assist in improving your overall health and well | | being.Assessment: Chronic Low Back PainCondition Status: StableGOALS | | for better health: achieve healthy weight, be more active, improve | | mobility, lower blood pressure, lower cholesterol, and modify eating | | habits.WEIGHT should be monitored to achieve optimal health.EXERCISE is | | an important factor to attaining optimal health.CARDIO at low | | intensity. Some examples of low intensity exercise include: walking, | | swimming, and stretching.NUTRITION Your provider advises staying | | hydrated. The [employer] [employer] determined men need roughly 3 | | liters (about 13 cups) of total beverages per day and women need about | | 2.2 liters (about 9 cups) of total beverages per day. Your provider | | also advises lowering salt levels in your diet: limit packaged foods | | like pretzels, chips, pickled foods, cured meats like hawley and salami, | | canned soups, cheeses, and soy sauce. Limiting foods that taste sweet | | including: soda, candy, cake, pie, jam, canned fruit in syrup and | | cookies, limiting foods high in fat like processed meats (sausage), | | nuts, cheeses, butter, and packaged foods with hydrogenated oils. Limit | | foods high in carbs like baked goods, low fat packaged foods, | | potatoes, pizza, and sugary cereals.BLOOD PRESSURE your provider | | recommends 140 or below systolic and 90 or below diastolic as your goal | | BP.REMINDERS: Alternate heat & ice as needed for pain, rest when | | necessary, try not to exceed your limitations, exercise when possible, | | and take medication as prescribed, try your best not to miss any doses. | | Try to get the recommended amount of sleep which is 7-8 hours per | | night.Follow up: 3 [id number]: Radiculopathy, lumbar [id number]. | | Diabetic neuropathy -Diabetic Neuropathy: Care | | Instructions Your Care | | InstructionsWhen you have diabetes, your blood sugar level may get too | | high. Over time, high blood sugar levels can damage nerves. This is | | called diabetic neuropathy. Nerve damage can cause pain, burning, | | tingling, and numbness and may leave you feeling weak. The feet are | | often affected. When you have nerve damage in your feet, you cannot | | feel your feet and toes as well as normal and may not notice cuts or | | sores. Even a small injury can lead to a serious infection. It is very | | important that you follow your doctor's advice on foot care.Sometimes | | diabetes damages nerves that help the body function. If this happens, | | your blood pressure, sweating, digestion, and urination might be | | affected. Your doctor may give you a target blood sugar level that is | | higher or lower than you are used to. Try to keep your blood sugar very | | close to this target level to prevent more damage.Follow-up care is a | | fung part of your treatment and safety. Be sure to make and go to all | | appointments, and call your doctor if you are having problems. It's | | also a good idea to know your test results and keep a list of the | | medicines you take.Take your medicines exactly as prescribed. Call your | | doctor if you think you are having a problem with your medicine. It is | | very important that you take your insulin or diabetes pills as your | | doctor tells you.* Eat a variety of healthy foods, with carbohydrate | | spread out in your meals. A dietitian can help you plan meals.* Try to | | get at least 30 minutes of exercise on most days.* Check your blood | | sugar as many times each day as your doctor recommends.Take pain | | medicines exactly as directed. If the doctor gave you a prescription | | medicine for pain, take it as prescribed. If you are not taking a | | prescription pain medicine, ask your doctor if you can take an | | fxpi-hxf-hemsmrw medicine. Do not smoke. Smoking can increase your | | chance for a heart attack or stroke. If you need help quitting, talk to | | your doctor about stop-smoking programs and medicines. These can | | increase your chances of quitting for good. Limit alcohol to 2 drinks a | | day for men and 1 drink a day for women. Too much alcohol can cause | | health problems. To care for your feet* Prevent injury by wearing shoes | | at all times, even when you are indoors. Do foot care as part of your | | daily routine. Wash your feet and then rub lotion on your feet, but not | | between your toes. Use a handheld mirror or magnifying mirror to | | inspect your feet for blisters, cuts, cracks, or sores.* Have your | | toenails trimmed and filed straight across.* Wear shoes and socks that | | fit well. Soft shoes that have good support and that fit well (such as | | tennis shoes) are best for your feet.* Check your shoes for any loose | | objects or rough edges before you put them on.* Ask your doctor to | | check your feet during each visit. Your doctor may notice a foot | | problem you have missed.* Get early treatment for any foot problem, | | even a minor one.E11.40: Type 2 diabetes mellitus with diabetic | | neuropathy, [id number]. Cardiomyopathy -Cardiomyopathy: Care | | Instructions Your Care | | InstructionsHypertrophic cardiomyopathy is a disease in which the heart | | muscle grows too thick. The thickened heart muscle can make it hard | | for the heart to pump blood well. This can cause shortness of breath, | | chest pain, dizziness, fainting, and fatigue. It also can affect the | | heart's electrical system. This increases the risk for life-threatening | | abnormal heartbeats. Your doctor may recommend a device called an ICD | | (implantable cardioverter-defibrillator) to stop these abnormal | | heartbeats.Good care at home can help you cope with symptoms and get | | the best results from your medications. It is very important that you | | follow up with your doctor.Follow-up care is a fung part of your | | treatment and safety. Be sure to make and go to all appointments, and | | call your doctor if you are having problems. It's also a good idea to | | know your test results and keep a list of the medicines you take.Take | | your medicines exactly as prescribed. Call your doctor if you think you | | are having a problem with your medicine. You will get more details on | | the specific medicines your doctor prescribes.Talk to your doctor about | | what level of exercise and what kinds of activities are safe for you. | | You may need to avoid too much strenuous activity.Have your family | | members tested for hypertrophic cardiomyopathy. The condition runs in | | families, and regular testing can identify it before it causes | | symptoms.* Do not smoke. Smoking can make this condition worse. If you | | need help quitting, talk to your doctor about stop-smoking programs and | | medicines. These can increase your chances of quitting for good.Call | | 911 anytime you think you may need emergency care. For example, call | | if:* You have symptoms of a heart attack. These may include:* Chest | | pain or pressure, or a strange feeling in the chest.* | | Sweating.Shortness of breath.* Nausea or vomiting.Pain, pressure, or a | | strange feeling in the back, neck, jaw, or upper belly or in one or | | both shoulders or arms. Lightheadedness or sudden weakness.ait for an | | ambulance. Do not try to drive yourself.* You have severe trouble | | breathing. You cough up pink, foamy mucus and you have trouble | | breathing. You passed out (lost consciousness).Call your doctor now or | | seek immediate medical care if:* You have new or increased shortness of | | breath. You are dizzy or lightheaded, or you feel like you may faint.* | | You have sudden weight gain, such as more than 2 to 3 pounds in a day | | or 5 pounds in a week. (Your doctor may suggest a different range of | | weight gain.) You have increased swelling in your legs, ankles, or | | feet. You have an ICD and you have signs of infection, such as: | | Increased pain, swelling, warmth, or redness. Red streaks leading from | | the cut (incision).You have a sudden episode of a skipping heartbeat or | | a very fast heartbeat.I42.9: Cardiomyopathy, [id number]. Stasis | | dermatitis -Dermatitis: Care | | Instructions Your Care | | InstructionsDermatitis is the general name used for any rash or | | inflammation of the skin. Different kinds of dermatitis cause different | | kinds of rashes. Common causes of a rash include new medicines, plants | | (such as poison oak or poison vielka), heat, and stress. Certain | | illnesses can also cause a rash.An allergic reaction to something that | | touches your skin, such as latex, nickel, or poison vielka, is called | | contact dermatitis. Contact dermatitis may also be caused by something | | that irritates the skin, such as bleach, a chemical, or soap. These | | types of rashes cannot be spread from person to person. How long your | | rash will last depends on what caused it. Rashes may last a few days or | | months. Follow-up care is a fung part of your treatment and safety. Be | | sure to make and go to all appointments, and call your doctor if you | | are having problems. It's also a good idea to know your test results | | and keep a list of the medicines you take. Do not scratch the rash. Cut | | your nails short, and file them smooth. Or wear gloves if this helps | | keep you from scratching. Wash the area with water only. Pat dry.* Put | | cold, wet cloths on the rash to reduce itching. Keep cool, and stay out | | of the sun.* Leave the rash open to the air as much as possible.* If | | the rash itches, use hydrocortisone cream. Follow the directions on the | | label. Calamine lotion may help for plant rashes. Take an | | fgtv-afl-vaqoslx antihistamine, such as diphenhydramine (Benadryl) or | | loratadine (Claritin), to help calm the itching. Read and follow all | | instructions on the label. If your doctor prescribed a cream, use it as | | directed. If your doctor prescribed medicine, take it exactly as | | directed. Call your doctor now or seek immediate medical care if: You | | have symptoms of infection, such as: Increased pain, swelling, warmth, | | or redness. Red streaks leading from the area. Pus draining from the | | area. A fever.* You have joint pain along with the rash. Watch closely | | for changes in your health, and be sure to contact your doctor if:* | | Your rash is changing or getting worse.I87.2: Venous insufficiency | | (chronic) (peripheral)13. Mixed hyperlipidemia -This care plan was | | designed by your provider to assist in improving your overall health | | and well being.Assessment: HyperlipidemiaCondition Status: StableGOALS | | for better health: achieve healthy weight, be more active, lower blood | | pressure, lower cholesterol, and modify eating habits.WEIGHT should be | | monitored to achieve optimal health.EXERCISE is an important factor to | | attaining optimal health.NUTRITION Your provider advises lowering salt | | levels in your diet: limit packaged foods like pretzels, chips, pickled | | foods, cured meats like hawley and salami, canned soups, cheeses, and | | soy sauce. Limiting foods that taste sweet including: soda, candy, | | cake, pie, jam, canned fruit in syrup and cookies, limiting foods high | | in fat like processed meats (sausage), nuts, cheeses, butter, and | | packaged foods with hydrogenated oils. Limit foods high in carbs like | | backed goods, low fat packaged foods, potatoes, pizza, and sugary | | cereals.REMINDERS: Continue to have fasting blood work performed every | | 3-6 months as directed by your physician. Take your medications as | | directed by your physician trying your best not to miss any doses and | | schedule any necessary follow up appointments.Follow up: 6 [id number]: | | Mixed [id number]. Tobacco user -Continues to smokeThis care plan | | was designed by your provider to assist in improving your overall | | health and well being. Assessment: Tobacco use Condition Status: Stable | | Cigarette smokers crave the nicotine in cigarettes. Giving it up is | | much harder than simply changing a habit. Your body has to stop craving | | the nicotine. It is hard to quit, but you can do it. There are many | | tools that people use to quit smoking. You may find that combining | | tools works best for you. There are several steps to quitting. After | | that, you learn new skills and behaviors to become a nonsmoker. For | | many people, a necessary step is getting and using medicine. Your | | doctor will help you set up the plan that best meets your needs. You | | may want to attend a smoking cessation program to help you quit | | smoking. Some of the changes you feel when you first quit tobacco are | | uncomfortable. Your body will miss the nicotine at first, and you may | | feel short-tempered. Set a quit date. Pick your date carefully so that | | it is not right in themiddle of a big deadline or stressful time. Once | | you quit, do not even take a puff. Get rid of all ashtrays and lighters | | after your last cigarette. Clean your house and your clothes so that | | they do not smell of smoke. Think about ways you can avoid those things | | that make you reach for a cigarette. Avoid situations that put you at | | greatest risk for smoking. For some people, it is hard to have a drink | | with friends without smoking. For others, they might skip a coffee | | break with coworkers who smoke. Change your daily routine. Take a | | different route to work or eat a meal in a different place. Cut down on | | stress. Calm yourself or release tension by doing an activity you | | enjoy, such as reading a book, taking a hot bath, or gardening. Talk to | | your doctor or pharmacist about nicotine replacement therapy, which | | replaces the nicotine in your body. You still get nicotine but you do | | not use tobacco. Nicotine replacement products help you slowly reduce | | the amount of nicotine you need. These productscome in several forms, | | many of them available [id number]-ohhlgcu: Nicotine patches Nicotine gum | | and lozenges Nicotine inhaler Ask your doctor about bupropion | | (Wellbutrin) or varenicline (Chantix), which are prescription | | medicines. They do not contain nicotine. They help you by reducing | | withdrawal symptoms, such as stress and anxiety. Some people find | | hypnosis, acupuncture, and massage helpful for ending the smoking | | habit. Eat a healthy diet and get regular exercise. Having healthy | | habits will help your body move past its craving for nicotine. Be | | prepared to keep trying. Most people are not successful the first few | | times they try to quit. Do not get mad at yourself if you smoke | | again.Z72.0: Tobacco use* STOPPING SMOKING: CARE [id number]. | | Amputated below knee -Preventing Falls: Care | | Instructions Your Care | | InstructionsGetting around your home safely can be a challenge if you | | have injuries or health problems that make it easy for you to fall. | | Loose rugs and furniture in walkways are among the dangers for many | | older people who have problems walking or who have poor eyesight. | | People who have conditions such as arthritis, osteoporosis, or dementia | | also have to be careful not to fall.You can make your home safer with | | a few simple measures.Follow-up care is a fung part of your treatment | | and safety. Be sure to make and go to all appointments, and call your | | doctor if you are having problems. It's also a good idea to know your | | test results and keep a list of the medicines you take. How can you | | care for yourself at home? Taking care of yourself. You may get dizzy | | if you do not drink enough water. To prevent dehydration, drink plenty | | of fluids, enough so that your urine is light yellow or clear like | | water. Choose water and other caffeine-free clear liquids. If you have | | kidney, heart, or liver disease and have to limit fluids, talk with | | your doctor before you increase the amount of fluids you drink.* | | Exercise regularly to improve your strength, muscle tone, and balance. | | Walk if you can. Swimming may be a good choice if you cannot walk | | easily.* Have your vision and hearing checked each year or any time you | | notice a change. If you have trouble seeing and hearing, you might not | | be able to avoid objects and could lose your balance. Know the side | | effects of the medicines you take. Ask your doctor or pharmacist | | whether the medicines you take can affect your balance. Sleeping pills | | or sedatives can affect your balance. Limit the amount of alcohol you | | drink. Alcohol can impair your balance and other senses. Ask Talk to | | your doctor if you have numbness in your feet. Preventing falls at | | home* Remove raised doorway thresholds, throw rugs, and clutter. Repair | | loose carpet or raised areas in the floor.* Move furniture and | | electrical cords to keep them out of walking paths. Use nonskid floor | | wax, and wipe up spills right away, especially on ceramic tile floors.* | | If you use a walker or cane, put rubber tips on it. If you use | | crutches, clean the bottoms of them regularly with an abrasive pad, | | such as steel wool. Keep your house well lit, especially stairways, | | porches, and outside walkways. Use night-lights in areas such as | | hallways and bathrooms. Install sturdy handrails on stairways.* Move | | items in your cabinets so that the things you use a lot are on the | | lower shelves (about waist level). Keep a cordless phone and a | | flashlight with new batteries by your bed. If possible, put a phone in | | each of the main rooms of your house, or carry a cell phone in case you | | fall and cannot reach a phone. Or, you can wear a device around your | | neck or wrist. You push a button that sends a signal for help. Wear | | low-heeled shoes that fit well and give your feet good support. Use | | footwear with nonskid soles. Check the heels and soles of your shoes | | for wear. Repair or replace worn heels or soles.* Do not wear socks | | without shoes on wood floors. Walk on the grass when the sidewalks are | | slippery. If you live in an area that gets snow and ice in the winter, | | sprinkle salt on slippery steps and sidewalks. Preventing falls in the | | bath* Install grab bars and nonskid mats inside and outside your shower | | or tub and near the toilet and sinks. Use shower chairs and bath | | benches.* Use a hand-held shower head that will allow you to sit while | | showering. Get into a tub or shower by putting the weaker leg in first. | | Get out of a tub or shower with your strong side first. Repair loose | | toilet seats and consider installing a raised toilet seat to make | | getting on and off the toilet easier. 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 Chronic | | obstructive lung disease -Stop smokingThis care plan was designed by | | your provider to assist in improving your overall health and well | | being.Assessment: Chronic Obstructive Pulmonary Disease (COPD)Condition | | Status: StableGOALS for better health: achieve healthy weight, be more | | active, lower blood pressure, lower cholesterol, stress reduction, | | modify eating habits, and if you smoke, your physician highly advises | | you to QUIT SMOKING. If you need extra help with smoking cessation, | | talk to your physician regarding your options. COPD puts a heavy strain | | on your body which makes you more vulnerable to infections so it is of | | the utmost importance to stay current with your immunizations such as | | your yearly flu shot, pneumonia (Pneumo 23 & Prevnar 13), and shingles | | (Shingrix).WEIGHT should be monitored to achieve optimal | | health.EXERCISE is an important factor in obtaining your optimal | | health.NUTRITION Your provider advises a low sodium diet so it is very | | important to lower the salt levels in your diet. Limit packaged foods | | like pretzels, chips, pickled foods, cured meats like hawley and salami, | | canned soups, cheeses, and soy sauce. Excess sugar is not good for | | your overall health. Limit foods that taste sweet including: soda, | | candy, cake, pie, jam, canned fruit in syrup and cookies, limiting | | foods high in fat like processed meats (sausage), nuts, cheeses, | | butter, and packaged foods with hydrogenated oils. It is also very | | important to limit foods high in carbs like baked goods, low fat | | packaged foods, potatoes, pizza, and sugary cereals to obtain your | | optimal health.BLOOD PRESSURE your provider recommends 140 or below | | systolic and 90 or below diastolic as your goal BP. Be sure to check | | your BP with your home blood pressure monitor and record your readings | | in a journal to take to your doctor visits for them to be reviewed by | | your physician.REMINDERS: Try your best to avoid cold, hot, or humid | | weather and avoid breathing dust, fumes, perfumes/cologne and smoke | | because your COPD symptoms may be worsened (exacerbated). Exercise on a | | regular basis when your physically able to, take all your medication | | (including your inhalers and nebulizer treatments) as prescribed by | | your physician, and try your best not to miss any doses. Continue to | | have fasting blood work performed every 3-6 months as directed by your | | physician and schedule any necessary follow up appointments. Report any | | new or worsening symptoms to your physician.Follow up: 6 kiktqtK05.9: | | Chronic obstructive pulmonary disease, [id number]. Chronic kidney | | disease stage 4 -This care plan was designed by your provider to assist | | in improving your overall health and well being.Assessment: Chronic | | Kidney DiseaseCondition Status: StableGOALS for better health: achieve | | healthy weight, be more active, lower blood pressure, lower | | cholesterol, stress reduction, and modify eating habits. If you are a | | smoker, your physician highly recommends you to STOP smoking. If you | | need help with quitting and smoking cessation, talk to your physician | | in regards to the best options for you.WEIGHT should be monitored to | | achieve optimal health.EXERCISE is an important factor to attaining | | optimal health.CARDIO at low intensity. Examples of low intensity | | exercise include: walking, swimming, and stretching.NUTRITION Your | | provider advises lowering salt levels in your diet: limit packaged | | foods like pretzels, chips, pickled foods, cured meats like hawley and | | salami, canned soups, cheeses, and soy sauce. Limiting foods that taste | | sweet including: soda, candy, cake, pie, jam, canned fruit in syrup | | and cookies, limiting foods high in fat like processed meats (sausage), | | nuts, cheeses, butter, and packaged foods with hydrogenated oils. | | Limit foods high in carbs like baked goods, low fat packaged foods, | | potatoes, pizza, and sugary cereals.BLOOD PRESSURE your provider | | recommends 140 or below systolic and 90 or below diastolic as your goal | | BP. Be sure to check your BP with your home blood pressure monitor and | | record your readings in a journal to take to your doctor visits for | | them to be reviewed by your physician.REMINDERS: Check your body, | | especially legs/ankles for excess swelling (edema) and report it to | | your doctor, check your weight daily and record it in your journal to | | take with you to your doctor visits so it can be reviewed with you, | | perform routine monitoring of your blood pressure, decrease salt | | intake, regular exercise (at least 3-5 days per week and 30-45 mins per | | session), inform all physicians along with health career law clerk | | involved in your health care of your chronic kidney disease diagnosis, | | take all medications as prescribed, and try your best not to miss any | | doses. Continue to have fasting blood work performed every 3-6 months | | as directed by your physician and schedule any necessary follow up | | appointments. Report any new or worsening symptoms to your | | physician.Follow up: 3 monthspatient will continue to have lab drawn to | | monitor kidney eeflfmfuE30.4: Chronic kidney disease, stage 4 | | (severe)Return to Office* to see JONO RHOADES DO at [facility] | | Medicine on or around 04/26/2019Encounter Sign-OffEncounter signed-off | | by JONO RHOADES DO, 04/12/2019. | + + + + + + +---+ + | OUTPATIEN | Admitter: | Owen | | | [facility] | | T | SHARI | Family | 9 | | r | | | [facility] [place] | Medicine | 09:06:00 | | Physician | | | | | PM CDT | | s Hot | | | | | | | [facility] | | | | | | | [place] | + + + + +---+ + | OUTPATIEN | Attender: | [facility] | [facility] SH[facility]I | Family | 9 | | r | | | AALIYAH | Medicine | 05:30:00 | | Physician | | | | | PM CDT | | s Hot | | | | | | | [facility] | | | | | | | [place] | + + + + +---+ + | OUTPATIEN | Admitter: | [facility] | | | National | | T | | Meg | 9 | | Park | | | JAZZMINE | Cardiolog | 12:42:00 | | Medical | | | [facility] | y | PM CDT | | Center | | | | Associate | | | Clinics | | | | s | | | | + + + + +---+ + | OUTPATIEN | Admitter: | [facility] | | | National | | T | DR | Meg | 9 | | [place] | | | JAZZMINE | Cardiolog | 12:33:00 | | Medical | | | [facility] | y | PM CDT | | Center | | | | Associate | | | Clinics | | | | s | | | | + + + + +---+ + | OUTPATIEN | Admitter: | [facility] | | | National | | T | DR | [facility] | 9 | | Park | | | JAZZMINE | Cardiolog | 12:33:00 | | Medical | | | W[facility] | y | PM CDT | | Center | | | | Associate | | | Clinics | | | | s | | | | + + + + +---+ + | OUTPATIEN | Admitter: | [facility] | | | National | | T | MRI | SPRINGS | 9 | | Park | | | | IMAGING | 12::00 | | Medical | | | | CENTER | PM CDT | | Center | | | | | | | Clinics | + + + + +---+ + | OUTPATIEN | Admitter: | [facility] | | | National | | T | MRI | SPRINGS | 9 | | Park | | | | IMAGING | 12:01:00 | | Medical | | | | CENTER | PM CDT | | Center | | | | | | | Clinics | + + + + +---+ + | OUTPATIEN | Admitter: | [facility] | | | National | | T | MRI | SPRINGS | 9 | | Park | | | | IMAGING | 12:01:00 | | Medical | | | | CENTER | PM CDT | | Center | | | | | | | Clinics | + + + + +---+ + | OUTPATIEN | Admitter: | [facility] | | | National | | T | MRI | SPRINGS | 9 | | Park | | | | IMAGING | 12:01:00 | | Medical | | | | CENTER | PM CDT | | Center | | | | | | | Clinics | + + + + +---+ + | OUTPATIEN | Admitter: | [facility] | | | National | | T | DR | Meg | 9 | | Park | | | JAZZMINE | Cardiolog | 11:57:00 | | Medical | | | W[facility] | y | AM CDT | | Center | | | | Associate | | | Clinics | | | | s | | | | + + + + +---+ + | Outpatien | Attender: | [facility] | | | National | | t | DR | Mge | 9 | | [place] | | | JAZZMINE | Cardiolog | 10:57:00 | | Medical | | | ST | y | AM CDT - | | Center | | | JOHNit | Associate | | | Clinics | | | ter: | s | 9 | | | | | JAZZMINE | | 11:34:00 | | | | | [facility] | | AM CDT | | | + + + + +---+ + + + | PatientName : ANDIE BEAN (68yo, F) ID# [id number]. Date/Time : | | 01/26/2019 11:15AMDOB : 1950ervice Dept. : [facility] | | Cardiology AssociatesProvider : JAZZMINE HARVEY MDInsuranceMed | | Primary: [facility] (MEDICARE REPLACEMENT/ADVANTAGE - | | PPO)Insurance # : [id number]/Group # : [id number] Name : | | UNKNOWNPrescription: [employer] - Member is eligible. detailsChief | | ComplaintCoronary artery diseasePatient's Care TeamPrimary Care | | Provider: JONO RHOADES DO: [address] , [facility] [place] [address], Ph | | , NPI: [id number] | | [facility] ([facility]): [address], | | [facility] [id number], , VitalsHt:5 ft | | 4.5 in 01/26/2019 11:02 amWt:141 lbs 01/26/2019 11:08 amBMI:23.8 | | 01/26/2019 11:08 amBP:112/60 01/26/2019 11:09 amPulse:75 bpm 01/26/2019 | | 11:09 amAllergiesReviewed AllergiesNKDAMedicationsReviewed | | MedicationsName: Anoro ElliptaDate: 01/26/19 enteredSource: Ann | | RostanName: Aspir-81Date: 01/26/19 enteredSource: Ann | | RostanName: atorvastatin 40 mg tablet Take 1 tablet(s) every day by | | oral route.Date: 01/26/19 enteredSource: Ann Watersme: Coreg | | 6.25mg bidDate: 11/02/17 enteredSource: Emeka HuddlestonName: gabapentin 600 | | mg tablet Take 2 tablet(s) 3 times a day by oral route.Date: 11/02/17 | | enteredSource: Emeka HuddlestonName: HumaLOG KwikPen InsulinDate: 01/26/19 | | enteredSource: Ann Watersme: HYDROcodone 10 mg-acetaminophen 325 | | mg tablet Take 1 tablet(s) as needed by oral route.Date: 11/02/17 | | enteredSource: Emeka HuddlestonName: Lantus U-100 InsulinDate: 01/26/19 | | enteredSource: Ann Watersme: Prevalite 4 gram oral powder Take 1 | | scoop(s) 3 times a day by oral route.Date: 01/26/19 enteredSource: | | Ann Schwab: ProAir HFADate: 01/26/19 enteredSource: Ann | | RostanName: Questran 4 gram oral powder Take 1 scoop(s) twice a day by | | oral route.Date: 01/26/19 enteredSource: Ann Watersme: | | Vitamin D2 50,000 unit capsule Take 1 capsule(s) every week by oral | | route.Date: 01/26/19 enteredSource: Ann FunezProblemsReviewed | | Problems* Peripheral vascular disease - Onset: 01/26/2019* Chronic | | obstructive lung disease - Onset: 01/26/2019* Essential hypertension - | | Onset: 01/26/2019* Coronary arteriosclerosis - Onset: 01/26/2019* Edema | | - Onset: 11/02/2017Family HistoryReviewed Family Historybrothers and | | sisterSocial HistoryReviewed Social HistorySmoking Status: Current | | every day smokerSmoker (1 2 PPD)Surgical HistoryReviewed Surgical | | HistoryPast Medical HistoryReviewed Past Medical HistoryAngioplasty | | (balloon): YCardiomyopathy: YHeart Disease: YHeart cath: YHeart stents: | | YHigh Blood Pressure: YHigh Cholesterol: YDocuments for | | DiscussionN/AScreeningNone recorded.HPINone recorded.ROSPatient reports | | shortness of breath when walking but reports no chest pain, no arm | | pain on exertion, no shortness of breath when lying down, no | | palpitations, and no known heart murmur. She reports no fever, no night | | sweats, no significant weight gain, no significant weight loss, and no | | exercise intolerance. She reports no dry eyes, no irritation, and no | | vision change. She reports no difficulty hearing and no ear pain. She | | reports no frequent nosebleeds and no nose/sinus problems. She reports | | no sore throat, no bleeding gums, no snoring, no dry mouth, no mouth | | ulcers, no oral abnormalities, and no teeth problems. She reports no | | jugular vein distension and no swollen glands. She reports no cough, no | | wheezing, no shortness of breath, and no coughing up blood. She | | reports no abdominal pain, no vomiting, normal appetite, no diarrhea, | | not vomiting blood, no nausea, and no constipation. She reports no | | incontinence, no difficulty urinating, no hematuria, and no increased | | frequency. She reportsno muscle aches, no muscle weakness, no | | arthralgias/joint pain, no back pain, and no swelling in the | | extremities. She reports no abnormal mole, no jaundice, and no rashes. | | She reports no loss of consciousness, no weakness, no numbness, no | | seizures, no dizziness, and no headaches. She reports no depression, no | | sleep disturbances, feeling safe in relationship, and no alcohol | | abuse. She reports no fatigue. She reports no swollen glands and no | | bruising. She reports no runny nose, no sinus pressure, no itching, no | | hives, and no frequent sneezing.ROS as noted in the HPIPhysical | | ExamPatient is a 68-year-old female.Constitutional: General Appearance: | | well-nourished, well-developed, and appears stated age. Level of | | Distress: comfortable.Psychiatric: Mental Status: alert and normal | | affect. Orientation: oriented to time, place, and person.Eyes: Lids and | | Conjunctivae: no discharge, pallor, xanthelasma, or arcus senilis and | | non-injected and anicteric.ENMT: Lips, Teeth, and Gums: normal | | dentition. Oropharynx: no cyanosis or pallor.Neck: Carotid Arteries: no | | bruits or thrills and bilateral normal upstroke. Jugular Veins: normal | | jugular venous pressure. Cervical Lymph Nodes: non tender or not | | enlarged. Thyroid: not enlarged, non tender, or no nodules.Lungs: | | Respiratory Effort: unlabored. Chest Exam: no thoracic deformity or | | chest wall tenderness and normal curvature. Percussion: resonant. | | Auscultation: no wheezing, rales, or rhonchi and clear.Cardiovascular: | | Precordial Exam: no heaves or precordial thrills and non displaced | | focal PMI. Rate And Rhythm: regular. Heart Sounds: no rub, gallop, or | | click and normal S1 and physiologically split S2. Systolic Murmur: | | grade 2/6 at the apex. Diastolic Murmur: not heard. Extremities: no | | cyanosis or edema.Peripheral Pulses: Pulses: full and equal in all | | extremities except if noted and no bruits appreciated.Abdomen: | | Inspection and Palpation: non distended or tender, no bruit or masses, | | and soft and normal aorta. Liver: non tender or no hepatomegaly. | | Spleen: non tender or no splenomegaly.Musculoskeletal: Inspection: no | | joint tenderness or swelling and no erythema.Neurologic: Gait: normal | | gait. Motor: normal strength and tone.Skin: Inspection and Palpation: | | warm and dry. Nails: no clubbing.Assessment / Plan1. Coronary | | arteriosclerosis in [place] gzfdwaS15.10: Atherosclerotic heart disease | | of [place] coronary artery without angina pectoris* CORONARY ARTERY | | DISEASE: CARE INSTRUCTIONS2. Primary fcvxjnjpavanybI08.9: | | Cardiomyopathy, unspecified3. Essential fkikdljikarmI72: Essential | | (primary) hypertension* HIGH BLOOD PRESSURE: CARE INSTRUCTIONS* | | LEARNING ABOUT HIGH BLOOD PRESSURE4. XwzyngajbpdcfsO39.5: | | Hyperlipidemia, unspecified* HIGH CHOLESTEROL: CARE INSTRUCTIONSReturn | | to Office* JAZZMINE HARVEY MD for Office Visit 15 at [facility] | | [facility] on 06/01/2019 at 10:45 AMEncounter | | Sign-OffEncounter signed-off by JAZZMINE HARVEY MD, 01/26/2019. | + + + + + + +---+ + | OUTPATIEN | Admitter: | Owen | | | [facility] | | T | SHARI | Family | 9 | | r | | | AALIYAH | Medicine | 06:11:00 | | Physician | | | | | PM CDT | | s Hot | | | | | | | [place] | | | | | | | [facility] | + + + + +---+ + | OUTPATIEN | Admitter: | Owen | | | [facility] | | T | SHARI | Family | 9 | | r | | | AALIYAH | Medicine | 03:58:00 | | Physician | | | | | PM CDT | | s Hot | | | | | | | [place] | | | | | | | [facility] | + + + + +---+ + | OUTPATIEN | Attender: | [place] | | | [facility] | | T | Jono | Family | 9 | | r | | | Jf | Medicine | 02:46:00 | | Physician | | | | | PM CDT | | s Hot | | | | | | | [place] | | | | | | | [place] | + + + + +---+ + | OUTPATIEN | Attender: | Owen | | | [facility] | | T | Jono | Family | 9 | | r | | | Jf | Medicine | 02:46:00 | | Physician | | | | | PM CDT | | s Hot | | | | | | | [place] | | | | | | | [facility] | + + + + +---+ + | OUTPATIEN | Attender: | Owen | | | [facility] | | T | Jono | Family | 9 | | r | | | Jf | Medicine | 02:46:00 | | Physician | | | | | PM CDT | | s Hot | | | | | | | [facility] | | | | | | | [place] | + + + + +---+ + | OUTPATIEN | Attender: | Owen | | | [facility] | | T | Jono | Family | 9 | | r | | | Jf | Medicine | 02:44:00 | | Physician | | | | | PM CDT | | s Hot | | | | | | | [place] | | | | | | | [facility] | + + + + +---+ + | OUTPATIEN | Attender: | [place] | | | [facility] | | T | Jono | Family | 9 | | r | | | Jf | Medicine | 08:04: | | Physician | | | | | AM CDT | | s Hot | | | | | | | [place] | | | | | | | [facility] | + + + + +---+ + | OUTPATIEN | Attender: | [place] | | | [facility] | | T | Jono | Family | 9 | | r | | | Jf | Medicine | 08:03:00 | | Physician | | | | | AM CDT | | s Hot | | | | | | | [facility] | | | | | | | [place] | + + + + +---+ + | OUTPATIEN | Attender: | [place] | | | [facility] | | T | Jono | Family | 9 | | r | | | Jf | Medicine | 08:02:00 | | Physician | | | | | AM CDT | | s Hot | | | | | | | [facility] | | | | | | | [place] | + + + + +---+ + | OUTPATIEN | Admitter: | [facility] | | | National | | T | DR | Meg | 9 | | Park | | | JAZZMINE | Cardiolog | 09:01:00 | | Medical | | | [facility] | y | AM CDT | | Center | | | | Associate | | | Clinics | | | | s | | | | + + + + +---+ + | OUTPATIEN | Attender: | [facility] | | | [facility] | | T | Jono | Family | 9 | | r | | | Jf | Medicine | 06:56:00 | | Physician | | | | | PM CDT | | s Hot | | | | | | | [place] | | | | | | | [place] | + + + + +---+ + | OUTPATIEN | Admitter: | Owen | | | [facility] | | T | SHARI | Family | 9 | | r | | | AALIYAH | Medicine | 06:49:00 | | Physician | | | | | PM CDT | | s Hot | | | | | | | [place] | | | | | | | [place] | + + + + +---+ + | OUTPATIEN | Admitter: | [place] | | | [facility] | | T | SHARI | Family | 9 | | r | | | AALIYAH | Medicine | 06:14:00 | | Physician | | | | | PM CDT | | s Hot | | | | | | | [place] | | | | | | | [place] | + + + + +---+ + | OUTPATIEN | Admitter: | [place] | | | [facility] | | T | SHARI | Family | 9 | | r | | | AALIYAH | Medicine | 05:30:00 | | Physician | | | | | PM CDT | | s Hot | | | | | | | [facility] | | | | | | | [place] | + + + + +---+ + | Outpatien | Attender: | Owen | | | [facility] | | t | Jono | Family | 9 | | r | | | [place] | Medicine | 04:30:00 | | Physician | | | itter: | | PM CDT - | | s Hot | | | SHARI | | | | [facility] | | | AALIYAH | | 9 | | [place] | | | | | 05:49:00 | | | | | | | PM CDT | | | + + + + +---+ + + + | PatientName : ANDIE BEAN (68yo, F) ID# [id number]. Date/Time : | | 01/10/2019 04:30PMDOB : 1950ervice Dept. : [facility] | | MedicineProvider : JONO RHOADES [facility] Primary: [employer] | | [employer] (MEDICARE REPLACEMENT/ADVANTAGE - PPO)Insurance # : | | [id number]/Group # : [id number]: [employer] - Member is | | eligible. detailsChief Complaintconsult for new prosthesisPatient's | | Care TeamNurse Practitioner: SHARI DURHAM [facility]Pr[facility]al[facility] Care Provider: | | JONO RHOADES [facility] - | | [place] ([place]): [address] [place] [address] [address] [place] [place] [id number], , | | VitalsHt:5 ft 5 in (165.1 cm) 01/10/2019 05:25 | | pmWt:151 lbs (68.49 kg) 01/10/2019 05:26 pmBMI:25.1 01/10/2019 05:26 | | pmBP:150/80 sitting R arm 01/10/2019 05:26 ddC2Pjz:98% Room Air at Rest | | 01/10/2019 05:26 pmPulse:72 bpm 01/10/2019 05:26 pmRR:18 01/10/2019 | | 05:26 pmT:97.5 F? ear (36.39 C) 01/10/2019 05:26 pmAllergiesReviewed | | AllergiesPRAVACHOL: Myalgias (muscle pain), Other - | | FatigueMedicationsReviewed MedicationsName: Adult Aspirin Regimen 81 mg | | tablet,delayed release Take 1 tablet(s) every day by oral route.Date: | | 09/03/18 enteredSource: Kathy ConnerName: Anoro Ellipta 62.5 mcg-25 | | mcg/actuation powder for inhalation INHALE 1 PUFF ONCE EACH DAY | | THANK YOU Date: 10/22/18 filledSource: PRESCRIPTION SOLUTIONSName: | | atorvastatin 40 mg tablet Take 1 tablet(s) every day by oral | | route.Date: 12/09/18 filledSource: PRESCRIPTION SOLUTIONSName: | | carvedilol 6.25 mg tablet Take 1 tablet(s) twice a day by oral | | route.Date: 12/23/18 filledSource: PRESCRIPTION SOLUTIONSName: | | furosemide 40 mg tablet Take 1 tablet(s) twice a day by oral | | route.Date: 12/08/18 filledSource: PRESCRIPTION SOLUTIONSName: | | gabapentin 600 mg tablet Take 1 tablet(s) every day by oral route.Date: | | 12/15/18 enteredSource: Pilar Law: HumaLOG KwikPen (U-100) | | Insulin 100 unit/mL subcutaneous sliding scale with 5 units being most | | injected PRNDate: 06/01/17 filledSource: PRESCRIPTION SOLUTIONSName: | | Lantus U-100 Insulin 100 unit/mL subcutaneous solution Inject 15 | | unit(s) every day by subcutaneous route.Date: 01/12/19 enteredSource: | | Ellen SOFIA: Prevalite 4 gram oral powderDate: 09/17/18 | | filledSource: PRESCRIPTION SOLUTIONSName: ProAir HFA 90 mcg/actuation | | aerosol inhaler Inhale 2 puff(s) every 4 hours by inhalation | | route.Date: 08/27/17 filledSource: PRESCRIPTION SOLUTIONSName: | | Questran 4 gram oral powder Take 1 scoop(s) every day by oral | | route.Note: for diarrheaDate: 09/17/18 prescribedSource: JONO | | Ellen RHOADES: TRUEplus Pen Needle 31 gauge x 10/09"Date: 03/03/17 | | filledSource: PRESCRIPTION SOLUTIONSName: Vitamin D2 50,000 unit | | capsule Take 1 capsule(s) every week by oral route.Date: 11/22/18 | | renewedSource: JONO RHOADES, DOVaccinesVaccines not reviewed (last | | reviewed 12/15/2018)Vaccine Type: influenza, high dose seasonalDate: | | 04/21/18Amt.: 0.5 mLRoute: IntramuscularSite: Deltoid, RightNDC:Lot #: | | [id number].: Sanofi PasteurExp. Date: 10/23/18Date on VIS: 03/02/15VIS | | Given: 04/21/18Vaccinator: SAMANTHA OmalleyPVaccine Type: influenza, | | high dose seasonalDate: 06/02/17mt.:Route:Site:[facility]:Lot #:Mfr.:Exp. | | Date:Date on VIS:VIS Given:Account Solutions Analyst:Vaccine Type: influenza, | | injectable, quadrivalentDate: 06/02/17mt.:Route:Site: Deltoid, | | RightNDC:Lot #: [id number].: SeqirusExp. Date: 01/23/18Date on | | VIS:VIS Given: 06/02/17Vaccinator:Vaccine Type: pneumococcal conjugate | | PCV 13Date: 11/09/17Amt.: 0.5 mLRoute: IntramuscularSite: Deltoid, | | RightNDC:Lot #: [id number].: Other manufacturerExp. Date: 09/25/19Date | | on VIS: 05/31/15VIS Given: 11/09/17Vaccinator: Meghan MolnairdVaccine | | Type: pneumococcal polysaccharide [id number]: | | 05/27/16Amt.:Route:Site:NDC:Lot #:Mfr.:Exp. Date:Date on VIS:VIS | | Given:Account Solutions Analyst:ProblemsReviewed Problems* Vitamin D deficiency - | | Onset: 06/16/2018* Hepatitis C antibody test positive - Onset: | | 12/28/2017* Essential hypertension* Postmenopausal osteoporosis* Lumbar | | radiculopathy* Diabetic neuropathy* Cardiomyopathy - Onset: | | 2017* Stasis dermatitis - Onset: 2017* Mixed hyperlipidemia | | - Onset: 10/03/2017* Tobacco user - Onset: 10/03/2017* Type II | | diabetes mellitus uncontrolled - Onset: 10/03/2017* Amputated below | | knee - Onset: 10/03/2017* Chronic obstructive lung disease - Onset: | | 08/27/2017* Chronic kidney disease stage 4 - Onset: 09/10/2018Family | | HistoryReviewed Family HistoryBrother- Heart disease- all 3 of | | this- Type 2 diabetes mellitusMother- Pulmonary emphysema- Disorder of | | thyroid glandPaternal Grandmother- Malignant tumor of breastSister- | | Malignant tumor of breast- Type 2 diabetes mellitusSocial HistorySocial | | History not reviewed (last reviewed 12/15/2018)Family Medicine and | | Medical Wellness Visit/IPPEAble to Care for Self: NLive alone or with | | others?: with othersAdvance directive: Marycruz you currently employed?: | | NEducation: 12Occupation: DisabledNumber of children: 3Guns present in | | home: NAlcohol intake: NoneCaffeine intake: OccasionalIllicit drugs: | | NODiet: DiabeticExercise level: NoneHard of hearing or deaf in one or | | both ears?: NLegally blind in one or both eyes?: NSexual orientation: | | HeterosexualSmoke alarm in home: YSmoking Status: Current every day | | smokerChewing tobacco: noneSmoker (1 07/28 PPD)Has smoked since age: | | 25Tobacco-years of use: 25Passive smoke exposure?: YSeat belts used | | routinely: YSunscreen used routinely: NIs the patient ambulatory?: Yes: | | limited self-mobility with assistive device(s); generally relies on | | wheeled mobilityTobacco cessation counseling provided?: YSingle or | | multi-level home/work?: single level homeMarital status: | | MarriedSurgical HistorySurgical History not reviewed (last reviewed | | 12/15/2018)* Cholecystectomy* Amputation - 02/25/2016 - LT leg | | amputation above the knee* Colonoscopy - 02/24/2014* Stent - 07/27/2006 | | - cardiac stent* delivery - 07/27/1975GYN HistoryGYN History | | not reviewed (last reviewed 12/15/2018)Most Recent Mammogram: (Notes: | | never had).Obstetric HistoryObstetric History not reviewed (last | | reviewed 12/15/2018)TOTAL: 3FULL: 3PRE:AB. I:AB. | | S:ECTOPICS:MULTIPLE:LIVINPast Medical HistoryPast Medical History | | not reviewed (last reviewed 12/15/2018)Other: Y - Dialysis from 02/2016 | | to 10/2016 with fistula in LT armStent: Y - cardiac stentNotes: Broke | | LT leg on 01/21/2016 and had internal fixation performed but after she | | was discharged, she was admitted back into the hospital 2 weeks later | | with severe infection. Her LT leg (from knee down) amputated 03/03/2016 | | from severe infection while in [facility].HPIHxo Left AKA. | | pt requesting a consult for new prosthesisthe one she currently has is | | causing right hip pain .ROSConstitutional: Constitutional: no | | significant weight gain or loss and no fever; + | | drowsiness.Cardiovascular: Cardiovascular: no chest pain.Respiratory: | | Respiratory: shortness of breath (baseline).Musculoskeletal: | | Musculoskeletal: arthralgias/joint pain, back pain, neck pain, and | | difficulty walking.Neurologic: Neurologic: tremor.Endocrine: Endocrine: | | fatigue.Physical ExamPatient is a 68-year-old female.Constitutional: | | General Appearance: well-nourished and well-developed. Level of | | Distress: chronically ill. Ambulation: in wheelchair.Psychiatric: | | Mental Status: active and alert.Eyes: Pupils: PERRLA. EOM: EOMI.ENMT: | | Ears: no lesions on external ear and TMs clear. Hearing: no hearing | | loss.Lungs: Auscultation: decreased breath sounds.Cardiovascular: Heart | | Auscultation: RRR and CARLIE (3/6).Abdomen: Bowel Sounds: normal. | | Inspection and Palpation: soft.Musculoskeletal:: Extremities: left BKA, | | RLE with 2+ edema up into thigh.Neurologic: Sensation Right Foot: | | right facial weakness with + [place] sign-improved.Skin: Lesion Type: | | location: RLE. Color: pink. Location/Description: well demarcated. | | Infectious signs: no warmth, swelling, tenderness, fluctuance, | | induration, or lymphangitic streaking; serous drainage.Foot Exam:: | | Right Foot: right foot toes were examined and digital hair absent | | right; Marked swelling and loss of sensation. Left Foot: | | amputated.Assessment / Plan1. Amputated above knee - Left -Pt is | | experiencing a rash with her prosethesis. She is also having a hard | | time getting it on and it takes her an hour and 1/2 to get it on by | | herself. When she is able to get it on, it causes her right leg (good | | leg) to hurt Her prosthesis needs pvdayumkhdclT86.612: Acquired absence | | of left leg above knee2. Body mass index 25-29 - ewqaqahqpkG15.26: | | Body mass index (BMI) 26.0-26.9, adult* LEARNING ABOUT HEALTHY WEIGHT3. | | Type II diabetes mellitus uncontrolled -Medications are reviewed with | | patient. Any issues where discussed. No current changes are made at | | this timeE11.65: Type 2 diabetes mellitus with hyperglycemia* TYPE 2 | | DIABETES: CARE INSTRUCTIONS* HEMOGLOBIN A1C* COMPREHENSIVE METABOLIC | | PANEL* COMPLETE BLOOD COUNT WITH AUTO DIFF* LIPID PANEL4. Chronic | | kidney disease stage 4 -N18.4: Chronic kidney disease, stage 4 | | (severe)5. Chronic obstructive lung disease -Stop tyzzuciW31.9: Chronic | | obstructive pulmonary disease, unspecified6. Tobacco user -Continues | | to oofqoM93.0: Tobacco use* STOPPING SMOKING: CARE INSTRUCTIONS7. Mixed | | hyperlipidemia -E78.2: Mixed hyperlipidemia8. Cardiomyopathy -I42.9: | | Cardiomyopathy, unspecified9. Diabetic neuropathy -E11.40: Type 2 | | diabetes mellitus with diabetic neuropathy, qnlvqtdekyt48. Essential | | hypertension -I10: Essential (primary) hypertension* HIGH BLOOD | | PRESSURE: CARE INSTRUCTIONS* LEARNING ABOUT HIGH BLOOD | | PRESSUREGoalsReturn to Office* to see JONO RHOADES DO at [place] | | Family Medicine on or around 04/12/2019Encounter Sign-OffEncounter | | signed-off by JONO RHOADES DO, 01/14/2019. | + + + + + + +---+ + | Outpatien | Attender: | | | | National | | t | | | 9 | | [facility] | | | JAZZMINE | | 10:00:00 | | Medical | | | ST | | AM CDT - | | Center | | | JOHNAtten | | | | ([facility]) | | | kelsie: | | 9 | | Hospital | | | JAZZMINE | | 09:21:00 | | | | | ST [facility] | | AM CDT | | | | | MDConsult | | | | | | | ant: | | | | | | | Jono | | | | | | | Jf | | | | | + + + + +---+ + | OUTPATIEN | Admitter: | NPC_Hot | | | National | | T | DR Thais Weaver | 9 | | [facility] | | | JAZZMINE | Cardiolog | 04:31:00 | | Medical | | | ST [facility] | y | PM CDT | | Center | | | | Associate | | | Clinics | | | | s | | | | + + + + +---+ + | OUTPATIEN | Admitter: | Owen | | | [facility] | | T | SHARI | Family | 9 | | r | | | AALIYAH | Medicine | 06:01:00 | | Physician | | | | | PM CDT | | s Hot | | | | | | | [place] | | | | | | | Sadaf | + + + + +---+ + | OUTPATIEN | Admitter: | NPC_[facility] | | | National | | T | | Meg | 9 | | Park | | | JAZZMINE | Cardiolog | :52:00 | | Medical | | | WES | y | AM CDT | | Center | | | | Associate | | | Clinics | | | | s | | | | + + + + +---+ + | OUTPATIEN | Admitter: | [facility] | | | National | | T | | Meg | 9 | | Park | | | JAZZMINE | Cardiolog | 09:52:00 | | Medical | | | ST [facility] | y | AM CDT | | Center | | | | Associate | | | Clinics | | | | s | | | | + + + + +---+ + | OUTPATIEN | Admitter: | NPC_[facility] | | | National | | T | DR | Regan | 9 | | Park | | | JAZZMINE | Cardiolog | :52:00 | | Medical | | | ST [facility] | y | AM CDT | | Center | | | | Associate | | | Clinics | | | | s | | | | + + + + +---+ + | OUTPATIEN | Admitter: | NPC_Hot | | | National | | T | DR | Regan | 9 | | Park | | | JAZZMINE | Cardiolog | : | | Medical | | | WES | y | AM CDT | | Center | | | | Associate | | | Clinics | | | | s | | | | + + + + +---+ + | OUTPATIEN | Admitter: | Owen | | | [facility] | | T | SHARI | Family | 9 | | r | | | [place] | Medicine | 11:55:00 | | Physician | | | | | AM CDT | | s Hot | | | | | | | [place] | | | | | | | [place] | + + + + +---+ + | OUTPATIEN | Admitter: | Owen | | | [facility] | | T | SHARI | Family | 9 | | r | | | AALIYAH | Medicine | 10:24:00 | | Physician | | | | | AM CDT | | s Hot | | | | | | | [place] | | | | | | | [place] | + + + + +---+ + | OUTPATIEN | Admitter: | [place] | | | [facility]sta | | T | SHARI | Family | 9 | | r | | | AALIYAH | Medicine | 10:24:00 | | Physician | | | | | AM CDT | | s Hot | | | | | | | [place] | | | | | | | [place] | + + + + +---+ + | Outpatien | Attender: | [place] | | | [facility] | | t | SHARI | Family | 9 | | r | | | MORELANDA | Medicine | 09:24:00 | | Physician | | | dmitter: | | AM CDT - | | s Hot | | | SHARI | | | | [place] | | | AALIYAH | | 9 | | [place] | | | | | 10:55:00 | | | | | | | AM CDT | | | + + + + +---+ + + + | PatientName : ANDIE BEAN (68yo, F) ID# [id number]. Date/Time : | | 12/15/2018 09:30AMDOB : 1950ervice Dept. : [facility] | | MedicineProvider : TRAVIS OMALLEYInsuranceMed Primary: UNITED | | HEALTHCARE (MEDICARE REPLACEMENT/ADVANTAGE - PPO)Insurance # : | | [id number]/Group # : [id number]: [id number] - Member is | | eligible. detailsChief ComplaintMedicare annual wellness visit- | | femaleMsEssence Bean is here for a Medicare Wellness Visit. Over the last 4 | | weeks she states that things have been going pretty good, rates her | | health as very good and is very confident that he can control or manage | | most of her health problems. She is at minimal risk for falls with no | | falls in the last 12 months. Her physical and emotional health do not | | affect her activites of daily living. No hospitalizations, ER or urgent | | care clinic visits in the last 12 months.Patient's Care TeamNurse | | Practitioner: TRAVIS OMALLEYPrbaptist medical center south Care Provider: JONO RHOADES, | | [facility] ([facility]): [phone] | | [facility] [address] [place] [address], , Fax [phone] | | [phone]:5 ft 5 in (165.1 cm) 12/15/2018 09:37 amWt:151 lbs | | (68.49 kg) 12/15/2018 09:38 amBMI:25.1 12/15/2018 09:38 amBP:140/82 | | sitting R arm 12/15/2018 09:39 am136/84 sitting L arm 12/22/2018 02:25 | | meX9Hdx:98% Room Air at Rest 12/15/2018 09:38 amPulse:79 bpm 12/15/2018 | | 09:38 amT:96.9 F? ear (36.06 C) 12/15/2018 09:38 amAllergiesReviewed | | AllergiesPRAVACHOL: Myalgias (muscle pain), Other - | | FatigueMedicationsReviewed MedicationsName: Adult Aspirin Regimen 81 mg | | tablet,delayed release Take 1 tablet(s) every day by oral route.Date: | | 09/03/18 enteredSource: Kathy ConnerName: Anoro Ellipta 62.5 mcg-25 | | mcg/actuation powder for inhalation INHALE 1 PUFF ONCE EACH DAY | | THANK YOU Date: 10/22/18 filledSource: PRESCRIPTION SOLUTIONSName: | | atorvastatin 40 mg tablet Take 1 tablet(s) every day by oral | | route.Date: 12/09/18 filledSource: PRESCRIPTION SOLUTIONSName: | | carvedilol 6.25 mg tablet Take 1 tablet(s) twice a day by oral | | route.Date: 11/30/18 filledSource: PRESCRIPTION SOLUTIONSName: | | furosemide 40 mg tablet Take 1 tablet(s) twice a day by oral | | route.Date: 12/08/18 filledSource: PRESCRIPTION SOLUTIONSName: | | gabapentin 600 mg tablet Take 1 tablet(s) every day by oral route.Date: | | 12/15/18 enteredSource: Pilar Mendezame: HumaLOG KwikPen (U-100) | | Insulin 100 unit/mL subcutaneous sliding scale with 5 units being most | | injected PRNDate: 06/01/17 filledSource: PRESCRIPTION SOLUTIONSName: | | Lantus U-100 Insulin 100 unit/mL subcutaneous solution 10 UNITS | | SUBCUTANEOUSLY ONCE EACH DAYInternal Note: pt states taking per sliding | | scale.Date: 12/14/18 renewedSource: Ellen SOFIA: | | Prevalite 4 gram oral powderDate: 09/17/18 filledSource: PRESCRIPTION | | SOLUTIONSName: ProAir HFA 90 mcg/actuation aerosol inhaler Inhale 2 | | puff(s) every 4 hours by inhalation route.Date: 08/27/17 | | filledSource: PRESCRIPTION SOLUTIONSName: Questran 4 gram oral powder | | Take 1 scoop(s) every day by oral route.Note: for diarrheaDate: | | 09/17/18 prescribedSource: Ellen SOFIA: TRUEplus Pen | | Needle 31 gauge x 10/09"Date: 03/03/17 filledSource: PRESCRIPTION | | SOLUTIONSName: Vitamin D2 50,000 unit capsule Take 1 capsule(s) every | | week by oral route.Date: 11/22/18 renewedSource: JONO RHOADES, | | DOVaccinesReviewed VaccinesVaccine Type: influenza, high dose | | seasonalDate: 04/21/18Amt.: 0.5 mLRoute: IntramuscularSite: Deltoid, | | RightND:Lot #: [id number].: Sanofi PasteurExp. Date: 10/23/18Date on | | VIS: 03/02/15VIS Given: 04/21/18Vaccinator: SAMANTHA OmalleyPVvelia | | Type: influenza, high dose seasonalDate: | | 06/02/17mt.:Route:Site:DCC:Lot #:Mfr.:Exp. Date:Date on VIS:VIS | | Given:Account Solutions Analyst:Vaccine Type: influenza, injectable, quadrivalentDate: | | 06/02/17mt.:Route:[facility], RightNDC:Lot #: [id number].: | | SeqirusExp. Date: 01/23/18Date on VIS:VIS Given: | | 06/02/17Vaccinator:Vaccine Type: pneumococcal conjugate PCV 13Date: | | 11/09/17Amt.: 0.5 mLRoute: IntramuscularSite: Deltoid, RightNDC:Lot #: | | [id number].: Other manufacturerExp. Date: 09/25/19Date on VIS: | | 05/31/15VIS Given: 11/09/17Vaccinator: Meghan MolnairdVaccine Type: | | pneumococcal polysaccharide [id number]: 05/27/16Amt.:Route:Site:NDC:Lot | | #:Mfr.:Exp. Date:Date on VIS:VIS Given:Account Solutions Analyst:ProblemsReviewed | | Problems* Type II diabetes mellitus uncontrolled - Onset: 10/03/2017* | | Diabetic neuropathy* Vitamin D deficiency - Onset: 06/16/2018* Mixed | | hyperlipidemia - Onset: 10/03/2017* Tobacco user - Onset: 10/03/2017* | | Essential hypertension* Cardiomyopathy - Onset: 2017* Stasis | | dermatitis - Onset: 2017* Chronic obstructive lung disease - | | Onset: 08/27/2017* Chronic kidney disease stage 4 - Onset: 09/10/2018* | | Lumbar radiculopathy* Postmenopausal osteoporosis* Hepatitis C antibody | | test positive - Onset: 12/28/2017* Amputated below knee - Onset: | | 10/03/2017Family HistoryReviewed Family HistoryBrother- Heart disease- | | all 3 of this- Type 2 diabetes mellitusMother- Pulmonary | | emphysema- Disorder of thyroid glandPaternal Grandmother- Malignant | | tumor of breastSister- Malignant tumor of breast- Type 2 diabetes | | mellitusSocial HistoryReviewed Social HistoryFamily Medicine and | | Medical Wellness Visit/IPPEAble to Care for Self: NLive alone or with | | others?: with othersAdvance directive: Marycruz you currently employed?: | | NEducation: 12Occupation: DisabledNumber of children: 3Guns present in | | home: NAlcohol intake: NoneCaffeine intake: OccasionalIllicit drugs: | | NODiet: DiabeticExercise level: NoneHard of hearing or deaf in one or | | both ears?: NLegally blind in one or both eyes?: NSexual orientation: | | HeterosexualSmoke alarm in home: YSmoking Status: Current every day | | smokerChewing tobacco: noneSmoker (1 07/28 PPD)Has smoked since age: | | 25Tobacco-years of use: 25Passive smoke exposure?: YSeat belts used | | routinely: YSunscreen used routinely: NIs the patient ambulatory?: Yes: | | limited self-mobility with assistive device(s); generally relies on | | wheeled mobilityTobacco cessation counseling provided?: YSingle or | | multi-level home/work?: single level homeMarital status: | | MarriedSurgical HistoryReviewed Surgical History* Cholecystectomy* | | Amputation - 02/25/2016 - LT leg amputation above the knee* Colonoscopy | | - 02/24/2014* Stent - 07/27/2006 - cardiac stent* delivery - | | 07/27/1975GYN 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 I:AB. S:ECTOPICS:MULTIPLE:LIVINPast Medical | | HistoryReviewed Past Medical HistoryOther: Y - Dialysis from 02/2016 to | | 10/2016 with fistula in LT armStent: Y - cardiac stentNotes: Broke LT | | leg on 01/21/2016 and had internal fixation performed but after she was | | discharged, she was admitted back into the hospital 2 weeks later with | | severe infection. Her LT leg (from knee down) amputated 03/03/2016 | | from severe infection while in [place] | [facility].ScreeningHPIMedicare Annual Wellness VisitReported by | | patient.Diet and Nutrition: healthy diet; discussed portion | | controlFracture Risk: no history of fractures; no recent explained | | fracture; no sudden unexplained fractures; no previous musculoskeletal | | injuriesPhysical Activity: does not exercise on a regular basis; poor | | physical conditionDepression Risk: never feels sad, empty, or | | tearfulOrientation: no disorientation to time; no disorientation to | | date; no disorientation to placeConcentration and Memory: no decreased | | concentrating ability; no memory lapses or loss; does not forget | | wordsSpeech/Motor difficulties: no speech difficulties; no difficulty | | expressing formulated concepts; no difficulty with fine manipulative | | tasks; no difficulty writing/copying; no slowed reaction timeHearing: | | no loss of hearingVision: no vision problemsActivities of Daily Living: | | able to bathe with limited or no assistance; able to contol urination | | and bowels; able to dress with limited or no assistance; able to feed | | self with limited or no assistance; able to get out of chair or bed | | with limited or no assistance; able to groom with limited or no | | assistance; able to toilet with limited or no assistanceInstrumental | | Activities of Daily Living: able to do house work with limited or no | | assistance; able to manage medications with limited or no assistance; | | able to manage money with limited or no assistance; able to prepare | | meals with limited or no assistance; able to use the phone with limited | | or no assistance; unable to grocery shop without assistance; pt is a | | below the knee amputee, states she is able to some pad cutter | | while using her walker but tires out quickly.Falls Risk Assessment: | | fall(s) in the past year 2Home Safety: no unsafe dustin hazzards; no | | unsafe stairs; working smoke/CO detectors; use of seatbelts; no vision | | or hearing loss while driving; has hand bars in the bathroom/shower; | | good lighting in the homeNotes:living will on fileROSPatient reports | | muscle aches, muscle weakness, arthralgias/joint pain, and back pain | | but reports no cramps. She reports no incontinence, no difficulty | | urinating, no hematuria, and no increased frequency.Physical | | ExamPatient is a 68-year-old female.Skin: Right Lower Extremity: | | callus(es) and corns.Vascular:: Right Pulses: normal dorsalis pedis | | pulse and posterior tibial pulse and no varicosities.Neurological:: | | Gait And Stance abnormal gait and stance; amputee left. Motor Right: | | normal motor strength. Sensation Right Foot: no pain/temperature | | decrease on the lateral leg and dorsum of foot (L5), the dorsum of the | | foot, or the sole of the foot; no pain/temperature decrease of the | | toes; no tactile decrease on the lateral leg and dorsum of the foot | | (L5), the sole of the foot, or the sole of the foot and posterior leg | | (S1); no vibration-perception threshold decrease; sensation | | diminished/absent, abnormal monofilament wire test, decreased sensation | | on the dorsum of the foot, and loss of protective sensation; and | | normal tuning fork test and ankle reflex intact. Sensation Left Foot: | | no pain/temperature decrease on the lateral leg and dorsum of foot | | (L5), the dorsum of the foot, or the sole of the foot; no | | pain/temperature decrease of the toes; no tactile decrease on the | | lateral leg and dorsum of the foot (L5), the sole of the foot, or the | | sole of the foot and posterior leg (S1); novibration-perception | | threshold decrease; and normal tuning fork test and ankle reflex | | intact.Assessment / Plan1. Adult health examination -Z00.00: Encounter | | for general adult medical examination without abnormal findings* | | WELLNESS EDUCATION2. Alcohol consumption screening - 8 min screening | | and discussion completed with wyzwmjqK41.89: Encounter for screening | | for other disorder3. Depression screening - 8 min screening and | | discussion completed with aophchdR55.89: Encounter for screening for | | other disorder4. Advance care planning - 16 min ACP discussion | | completed with patient. Discussed living will and POA. Packet provided | | and questions answered. If desired may return completed forms to PCP | | for discussion and to scan in EHR.Z71.89: Other specified counseling* | | ADVANCE DIRECTIVE EDUCATION* ADVANCE CARE PLANNING: CARE INSTRUCTIONS5. | | Screening for malignant neoplasm of fjjnpI63.11: Encounter for | | screening for malignant neoplasm of colon6. Postmenopausal pekleI75.0: | | Asymptomatic menopausal state7. Screening for disorder -after | | 12-19Z13.9: Encounter for screening, unspecified* BONE DENSITY8. | | Advance directive discussed with nbyystoM65.89: Other specified | | counseling* ADVANCE DIRECTIVE EDUCATION* ADVANCE DIRECTIVES: CARE | | INSTRUCTIONS9. Body mass index 25-29 - dytdfedvbxX02.25: Body mass | | index (BMI) 25.0-25.9, adult10. Cigarette hmiryaY52.210: Nicotine | | dependence, cigarettes, uncomplicated* SMOKING CESSATION COUNSELING, | | 3-10 IQATQHI53. Type II diabetes mellitus rfmgvtiwkpqxA13.40: Type 2 | | diabetes mellitus with diabetic neuropathy, . Chronic | | obstructive lung cweenkuK52.9: Chronic obstructive pulmonary disease, | | wqnhjpinjxg91. Amputated below kneeZ89.612: Acquired absence of left | | leg above kneeGoalsDiscussion NotesMedications reviewed. No changes to | | medications. List of medications given to patient. Counseling was | | provided today re: healthy eating habits and regular exercises, alcohol | | and tobacco use. Goals for better health discussed. Immunizations | | reviewed. Screenings discussed. Discussed Advanced Directives. Copy | | given to patient today. Results of cognitive exam, fall screen, | | incontinence screen, and pain severity discussed with patient. All most | | recent labs reviewed. Discussed recent systolic and diastolic blood | | pressure readings. Questions answered and provided patient with a copy | | of all current screenings and services.Return to Office* JONO | | DO JF for Established Patient 15 at [facility] on | | 01/10/2019 at 04:30 [facility] Sign-OffEncounter signed-off by SHARI | | TRAVIS DURHAM, 01/04/2019. 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 | | s Hot | | | | | | | [place] | | | | | | | [place] | + + + + +---+ + | OUTPATIEN | Admitter: | [place] | | | [facility] | | T | SHARI | [facility] | 9 | | r | | | [facility] | 05:17:00 | | Physician | | | | | 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 | | s Hot | | | | | | | [place] | | | | | | | [place] | + + + + +---+ + | OUTPATIEN | Admitter: | [place] | | | [facility] | | T | SHARI | Family | 9 | | r | | | [place] | Medicine | 02:44:00 | | Physician | | | | | 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 | | s Hot | | | | | | | [place] | | | | | | | [place] | + + + + +---+ + | OUTPATIEN | Admitter: | [place] | | | [facility] | | T | SHARI | Family | 9 | | r | | | [place] | Medicine | 12:36:00 | | Physician | | | | | 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 | | s Hot | | | | | | | [place] | | | | | | | [place] | + + + + +---+ + | Outpatien | Attender: | [facility] | | | [facility] | | t | Jono | Family | 9 | | r | | | [facility] | Medicine | 11:36:00 | | Physician | | | itter: | | 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 - | | s Hot | | | SHARI | | | | [place] | | | AALIYAH | | 9 | | [place] | | | | | 01:44:00 | | | | | | | 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 | | | + + + + +---+ + + + | PatientName : ANDIE BEAN (67yo, F) ID# [id number]. Date/Time : | | 09/17/2018 10:30AMD[facility] : 1950[facility] Dept[facility] : [facility] | | MedicineProvider : [facility] Primary: UNITED | | HEALTHCARE (MEDICARE REPLACEMENT/ADVANTAGE - PPO)Insurance # : | | [id number]/Group # : [id number]: ORX - Member is eligible. | | detailsChief ComplaintRight Knee PainFollow up Tremors.Patient's Care | | TeamNurse Practitioner: SHARI DURHAM CNSPrimary Care Provider: | | JONO RHOADES [facility] - | | [place] ([place]): [address] [place] [address] [address], [place] [address], , | | VitalsHt:5 ft 5 in (165.1 cm) 09/17/2018 11:41 | | amWt:160 lbs (72.57 kg) 09/17/2018 11:41 amBMI:26.6 09/17/2018 11:41 | | amBP:138/66 sitting L arm 09/17/2018 11:42 hkN9Kcv:97% Room Air at Rest | | 09/17/2018 11:42 amPulse:79 bpm regular 09/17/2018 11:42 | | amAllergiesAllergies not reviewed (last reviewed 07/06/2018)PRAVACHOL: | | Myalgias (muscle pain), Other - FatigueMedicationsReviewed | | MedicationsName: Adult Aspirin Regimen 81 mg tablet,delayed release | | Take 1 tablet(s) every day by oral route.Date: 09/03/18 | | enteredSource: Kathy ConnerName: Anoro Ellipta 62.5 mcg-25 | | mcg/actuation powder for inhalation PRNDate: 10/19/17 filledSource: | | PRESCRIPTION SOLUTIONSName: atorvastatin 40 mg tablet Take 1 tablet(s) | | every day by oral route.Date: 09/13/18 filledSource: PRESCRIPTION | | SOLUTIONSName: carvedilol 6.25 mg tablet Take 1 tablet(s) twice a day | | by oral route.Date: 09/13/18 filledSource: PRESCRIPTION | | SOLUTIONSName: furosemide 40 mg tablet Take 1 tablet(s) twice a day by | | oral route.Date: 09/08/18 filledSource: PRESCRIPTION SOLUTIONSName: | | gabapentin 600 mg tablet Take 2 tablet(s) 3 times a day by oral | | route.Date: 06/01/18 filledSource: PRESCRIPTION SOLUTIONSName: | | HumaLOG KwikPen (U-100) Insulin 100 unit/mL subcutaneous sliding scale | | with 5 units being most injected PRNDate: 06/01/17 filledSource: | | PRESCRIPTION SOLUTIONSName: Lantus U-100 Insulin 100 unit/mL | | subcutaneous solution 10 units subq dailyDate: 05/10/18 filledSource: | | PRESCRIPTION SOLUTIONSName: ProAir HFA 90 mcg/actuation aerosol | | inhaler Inhale 2 puff(s) every 4 hours by inhalation route.Date: | | 08/27/17 filledSource: PRESCRIPTION SOLUTIONSName: Questran 4 gram | | oral powder Take 1 scoop(s) every day by oral route.Note: for | | diarrheaDate: 09/17/18 prescribedSource: Ellen SOFIA: | | TRUEplus Pen Needle 31 gauge x 10/09"Date: 03/03/17 filledSource: | | PRESCRIPTION SOLUTIONSName: Vitamin D2 50,000 unit capsule Take 1 | | capsule(s) every week by oral route.Date: 06/16/18 prescribedSource: | | JONO RHOADES DOVaccinesVaccines not reviewed (last reviewed | | 09/03/2018)Vaccine Type: influenza, high dose seasonalDate: | | 04/21/18Amt.: 0.5 mLRoute: IntramuscularSite: Deltoid, RightNDC:Lot #: | | [id number].: Sanofi PasteurExp. Date: 10/23/18Date on VIS: 03/02/15VIS | | Given: 04/21/18Vaccinator: Shari Durham, CNSVaccine Type: influenza, | | high dose seasonalDate: 06/02/17mt.:Route:Site:[facility]:Lot #:Mfr.:Exp. | | Date:Date on VIS:VIS Given:Account Solutions Analyst:Vaccine Type: influenza, | | injectable, quadrivalentDate: 06/02/17mt.:Route:Site: Deltoid, | | RightNDC:Lot #: [id number].: SeqirusExp. Date: 01/23/18Date on | | VIS:VIS Given: 06/02/17Vaccinator:Vaccine Type: pneumococcal conjugate | | PCV 13Date: 11/09/17Amt.: 0.5 mLRoute: IntramuscularSite: Deltoid, | | RightNDC:Lot #: [id number].: Other manufacturerExp. Date: 09/25/19Date | | on VIS: 05/31/15VIS Given: 11/09/17Vaccinator: Meghan MolnairdVaccine | | Type: pneumococcal polysaccharide [id number]: | | 05/27/16Amt.:Route:Site:[facility]:Lot #:Mfr.:Exp. Date:Date on VIS:VIS | | Given:Account Solutions Analyst:ProblemsReviewed Problems* Vitamin D deficiency - | | Onset: 06/16/2018* Hepatitis C antibody test positive - Onset: | | 12/28/2017* Essential hypertension* Postmenopausal osteoporosis* Lumbar | | radiculopathy* Diabetic neuropathy* Cardiomyopathy - Onset: | | 2017* Stasis dermatitis - Onset: 2017* Mixed hyperlipidemia | | - Onset: 10/03/2017* Tobacco user - Onset: 10/03/2017* Type II | | diabetes mellitus uncontrolled - Onset: 10/03/2017* Amputated below | | knee - Onset: 10/03/2017* Chronic obstructive lung disease - Onset: | | 08/27/2017* Chronic kidney disease stage 4 - Onset: 09/10/2018Family | | HistoryFamily History not reviewed (last reviewed 04/21/2018)Brother- | | Heart disease- all 3 of this- Type 2 diabetes mellitusMother- | | Pulmonary emphysema- Disorder of thyroid glandPaternal Grandmother- | | Malignant tumor of breastSister- Malignant tumor of breast- Type 2 | | diabetes mellitusSocial HistorySocial History not reviewed (last | | reviewed 04/21/2018)Family Medicine and Medical Wellness Visit/IPPEAble | | to Care for Self: NLive alone or with others?: with othersAdvance | | directive: NAre you currently employed?: NEducation: 12Occupation: | | DisabledNumber of children: 3Guns present in home: NAlcohol intake: | | NoneCaffeine intake: OccasionalIllicit drugs: NODiet: DiabeticExercise | | level: NoneHard of hearing or deaf in one or both ears?: NLegally blind | | in one or both eyes?: NSexual orientation: HeterosexualSmoke alarm in | | home: YSmoking Status: Current every day smokerChewing tobacco: | | noneSmoker (1 1/2 PPD)Has smoked since age: 25Tobacco-years of use: | | 25Passive smoke exposure?: YSeat belts used routinely: YSunscreen used | | routinely: NIs the patient ambulatory?: Yes: limited self-mobility with | | assistive device(s); generally relies on wheeled mobilityTobacco | | cessation counseling provided?: YSingle or multi-level home/work?: | | single level homeMarital status: MarriedSurgical HistorySurgical | | History not reviewed (last reviewed 04/21/2018)* Cholecystectomy* | | Amputation - 02/25/2016 - LT leg amputation above the knee* Colonoscopy | | - 02/24/2014* Stent - 07/27/2006 - cardiac stent* delivery - | | 07/27/1975GYN HistoryGYN History not reviewed (last reviewed | | 04/21/2018)Most Recent Mammogram: (Notes: never had).Obstetric | | HistoryObstetric History not reviewed (last reviewed 04/21/2018)TOTAL: | | 3FULL: 3PRE:AB. I:AB. S:ECTOPICS:MULTIPLE:LIVINPast Medical | | HistoryPast Medical History not reviewed (last reviewed | | 04/21/2018)Other: Y - Dialysis from 02/2016 to 10/2016 with fistula in | | LT armStent: Y - cardiac stentNotes: Broke LT leg on 01/21/2016 and had | | internal fixation performed but after she was discharged, she was | | admitted back into the hospital 2 weeks later with severe infection. | | Her LT leg (from knee down) amputated 03/03/2016 from severe infection | | while in [facility].HPIExtremity Pain/InjuryReported by | | patient.Location: right kneeTiming: intermittentContext: | | overuseAssociated Symptoms: weak limbsNotes:Andie states that her knee | | has to do so much twisting having to get on the toilet often that it | | has started locking/giving away with her causing her to fall. She would | | like to discuss options for a brace.TremorsReported by patient.Hand | | Dominance: rightLocation: She states that since her last visit she has | | not had another episode of tremors.Onset/Timing: gone | | nowROSConstitutional: Constitutional: no significant weight gain or | | loss and no fever.ENMT: Ears: no difficulty hearing. Nose: no sinus | | problems.Cardiovascular: Cardiovascular: no chest pain.Respiratory: | | Respiratory: no cough or shortness of breath.Gastrointestinal: | | Gastrointestinal: frequent diarrhea.Genitourinary: Genitourinary: no | | incontinence or difficulty urinating; no dysuria.Musculoskeletal: | | Musculoskeletal: Right anterior knee pain left about knee | | amputation.Integumentary: Skin: no rashes.Neurologic: Neurologic: no | | weakness, numbness, or headaches.Psychiatric: Psych: no | | depression.Endocrine: Endocrine: no fatigue.Hematologic/Lymphatic: | | Hematologic/Lymphatic no swollen glands.ROS as noted in the HPIPhysical | | ExamPatient is a 67-year-old female.Constitutional: General | | Appearance: well-nourished and well-developed. Level of Distress: | | chronically ill. Ambulation: in wheelchair.Psychiatric: Mental Status: | | active and alert.Lungs: Auscultation: decreased breath | | sounds.Cardiovascular: Heart Auscultation: RRR and CARLIE (/).Abdomen: | | Bowel Sounds: normal. Inspection and Palpation: soft.Musculoskeletal:: | | Extremities: left BKA, RLE With mild edema. Separation over anterior | | patella Tenderness along joint line.Procedure DocumentationJoint | | Injection - Major Joint:After discussion of the risks and benefits, the | | patient elected to proceed with a kenalog injection into the right | | knee. Informed consent was obtained. Confirmed that the patient does | | not have history of prior adverse reactions, active infections, or | | relevant allergies. There was no effusion, erythema, or warmth, and the | | skin was clear.The skin was prepped in the sterile fashion. Topical | | anesthesia was achieved with ethyl chloride. A 22 gauge needle was | | inserted into the joint via a approach. The site was injected with a | | mixture of 40 mg Kenalog and 1% lidocaine. The injection was completed | | without complication, and a bandage was applied. The patient tolerated | | the procedure well and was instructed to avoid strenuous activity for | | the next 24-48 hours and to use ice, NSAIDs, or Tylenol for pain as | | needed. The patient will call immediately with any signs of infection | | or allergic reaction.The patient will return as needed.Assessment / | | Plan1. Diarrhea -R19.7: Diarrhea, unspecified* Questran 4 gram oral | | powder -Take 1 scoop(s) every day by oral route. Qty: 1 378 gm can(s) | | Refills: 0 Pharmacy: [facility] [place]. Knee pain - | | Right -Arthrotcentesis--see note Discuss strengthening of right leg | | muscles.Discuss standing up out of chair with help of Walker. Go to do | | 10 reps twice today X-ray reveals no obvious fracture Surprisingly only | | minimal arthritic change in medial compartment of kneeM25.561: Pain in | | right knee* XR, KNEE, 1 OR 2 VIEW3. Diabetic neuropathy -E11.40: Type | | 2 diabetes mellitus with diabetic neuropathy, unspecified4. | | Cardiomyopathy -I42.9: Cardiomyopathy, unspecified5. Type II diabetes | | mellitus uncontrolled -Horned blood pressure may go up after | | ohzviodcpI33.65: Type 2 diabetes mellitus with hyperglycemia* TYPE 2 | | DIABETES: CARE INSTRUCTIONS6. Amputated below knee -Z89.519: Acquired | | absence of unspecified leg below kneeGoalsDiscussion NotesFollow up | | with know better one weekReturn to OfficeNone recorded.Encounter | | Sign-OffEncounter signed-off by JONO RHOADES DO, 09/18/2018. | + + + + + + +---+ + | OUTPATIEN | Attender: | [place] | | | [facility] | | T | Jono | | 9 | | r | | | Jf | Medicine | 12:27:00 | | Physician | | | | | 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 | | s Hot | | | | | | | [place] | | | | | | | [place] | + + + + +---+ + | OUTPATIEN | Attender: | [place] | | | [facility] | | T | [facility] [place] | 9 | | r | | | Jf | Medicine | 07:02:00 | | Physician | | | | | 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 | | s Hot | | | | | | | [place] | | | | | | | [place] | + + + + +---+ + | OUTPATIEN | Attender: | [place] | | | [facility] | | T | Jono | Family | 9 | | r | | | Jf | Medicine | 10:45:00 | | Physician | | | | | 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 | | s Hot | | | | | | | [place] | | | | | | | [place] | + + + + +---+ + | OUTPATIEN | Attender: | [place] | | | [facility] | | T | Jono | Family | 9 | | r | | | Jf | Medicine | 10:45:00 | | Physician | | | | | 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 | | s Hot | | | | | | | [place] | | | | | | | [place] | + + + + +---+ + | OUTPATIEN | Attender: | [place] | | | [facility] | | T | Jono | Family | 9 | | r | | | Jf | Medicine | 10:45:00 | | Physician | | | | | 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 | | s Hot | | | | | | | [place] | | | | | | | [place] | + + + + +---+ + | OUTPATIEN | Attender: | [place] | | | [facility] | | T | Jono | Family | 9 | | r | | | Jf | Medicine | 10:45:00 | | Physician | | | | | 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 | | s Hot | | | | | | | [place] | | | | | | | [place] | + + + + +---+ + | OUTPATIEN | Attender: | [place] | | | [facility] | | T | Jono | Family | 9 | | r | | | Jf | Medicine | 10:45:00 | | Physician | | | | | 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 | | s Hot | | | | | | | [place] | | | | | | | [place] | + + + + +---+ + | OUTPATIEN | Attender: | [place] | | | [facility] | | T | Jono | Family | 9 | | r | | | Jf | Medicine | 10:45:00 | | Physician | | | | | 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 | | s Hot | | | | | | | [place] | | | | | | | [place] | + + + + +---+ + | OUTPATIEN | Attender: | [place] | | | [facility] | | T | Jono | Family | 9 | | r | | | Jf | Medicine | 10:45:00 | | Physician | | | | | 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 | | s Hot | | | | | | | [place] | | | | | | | [place] | + + + + +---+ + | OUTPATIEN | Attender: | [place] | | | [facility] | | T | Jono | Family | 9 | | r | | | Jf | Medicine | 10:45:00 | | Physician | | | | | 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 | | s Hot | | | | | | | [place] | | | | | | | [place] | + + + + +---+ + | OUTPATIEN | Attender: | [place] | | | [facility] | | T | Jono | Family | 9 | | r | | | Fj | Medicine | 07:59:00 | | Physician | | | | | 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 | | s Hot | | | | | | | [place] | | | | | | | [place] | + + + + +---+ + | OUTPATIEN | Attender: | [place] | | | [facility] | | T | Jono | Family | 9 | | r | | | Jf | Medicine | 07:59:00 | | Physician | | | | | 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 | | s Hot | | | | | | | [place] | | | | | | | [place] | + + + + +---+ + | OUTPATIEN | Attender: | [place] | | | [facility] | | T | Jono | Family | 9 | | r | | | Jf | Medicine | 07:59:00 | | Physician | | | | | 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 | | s Hot | | | | | | | [place] | | | | | | | [place] | + + + + +---+ + | OUTPATIEN | Attender: | [place] | | | [facility] | | T | Jono | Family | 9 | | r | | | Jf | Medicine | 10:19:00 | | Physician | | | | | 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 | | s Hot | | | | | | | [place] | | | | | | | [place] | + + + + +---+ + | OUTPATIEN | Attender: | [place] | | | [facility] | | T | Jono | Family | 9 | | r | | | Jf | Medicine | 09:49:00 | | Physician | | | | | 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 | | s Hot | | | | | | | [place] | | | | | | | [place] | + + + + +---+ + | OUTPATIEN | Attender: | [place] | | | [facility] | | T | Jono | Family | 9 | | r | | | Jf | Medicine | 09:12:00 | | Physician | | | | | 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 | | s Hot | | | | | | | [place] | | | | | | | [place] | + + + + +---+ + | OUTPATIEN | Attender: | [place] | | | [facility] | | T | Jono | Family | 9 | | r | | | Jf | Medicine | 08:52:00 | | Physician | | | | | 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 | | s Hot | | | | | | | [place] | | | | | | | [place] | + + + + +---+ + | OUTPATIEN | Attender: | [place] | | | [facility] | | T | Jono | Family | 9 | | r | | | Jf | Medicine | 08:52:00 | | Physician | | | | | 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 | | s Hot | | | | | | | [place] | | | | | | | [place] | + + + + +---+ + | OUTPATIEN | Attender: | [place] | | | [facility] | | T | Jono | Family | 9 | | r | | | Jf | Medicine | 06:10:00 | | Physician | | | | | 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 | | s Hot | | | | | | | [place] | | | | | | | [place] | + + + + +---+ + | OUTPATIEN | Admitter: | [place] | | | [facility] | | T | SHARI | Family | 9 | | r | | | AALIYAH | Medicine | 05:23:00 | | Physician | | | | | 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 | | s Hot | | | | | | | [place] | | | | | | | [place] | + + + + +---+ + | OUTPATIEN | Attender: | [place] | | | [facility] | | T | Jono | Family | 9 | | r | | | Jf | Medicine | 05:16:00 | | Physician | | | | | 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 | | s Hot | | | | | | | [place] | | | | | | | [place] | + + + + +---+ + | OUTPATIEN | Admitter: | [place] | | | [facility] | | T | SHARI | Family | 9 | | r | | | AALIYAH | Medicine | 05:07:00 | | Physician | | | | | 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 | | s Hot | | | | | | | [place] | | | | | | | [place] | + + + + +---+ + | OUTPATIEN | Admitter: | [place] | | | [facility] | | T | SHARI | Family | 9 | | r | | | [place] | [facility] | 05:07:00 | | Physician | | | | | 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 | | s Hot | | | | | | | [place] | | | | | | | [place] | + + + + +---+ + | OUTPATIEN | Admitter: | [place] | | | [facility] | | T | SHARI | Family | 9 | | r | | | [place] | [facility] | 03:49:00 | | Physician | | | | | 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 | | s Hot | | | | | | | [place] | | | | | | | [place] | + + + + +---+ + | OUTPATIEN | Admitter: | [place] | | | [facility] | | T | SHARI | Family | 9 | | r | | | [place] | [facility] | 03:47:00 | | Physician | | | | | 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 | | s Hot | | | | | | | [place] | | | | | | | [place] | + + + + +---+ + | OUTPATIEN | Admitter: | [place] | | | [facility] | | T | SHARI | Family | 9 | | r | | | AALIYAH | Medicine | 03:43:00 | | Physician | | | | | 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 | | s Hot | | | | | | | [place] | | | | | | | [place] | + + + + +---+ + | Outpatien | Attender: | [place] | | | [facility] | | t | Jono | | 9 | | r | | | JfAdm | Medicine | 02:43:00 | | Physician | | | itter: | | 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 - | | s Hot | | | [place]AR[place] | | | | [place] | | | [place]AH | | 9 | | [place] | | | | | 04:23:00 | | | | | | | 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 | | | + + + + +---+ + + + | PatientName : ANDIE BEAN (67yo, F) ID# [id number]. Date/Time : | | 09/10/2018 02:45PMDOB : 1Service Dept. : [facility] | | MedicineProvider : JONO RHOADES, [facility] Primary: UNITED | | HEALTHCARE (MEDICARE REPLACEMENT/ADVANTAGE - PPO)Insurance # : | | [id number]/Group # : [id number]: ORX - Member is eligible. | | detailsChief ComplainttremorsPatient's Care TeamNurse Practitioner: | | SHARI DURHAM, CNSPrimary Care Provider: Arthur SOFIA | | [facility] ([place]): [facility] [address], | | [place] [address], , VitalsHt:5 ft 5 | | in (165.1 cm) 09/10/2018 03:13 pmWt:160 lbs (72.57 kg) 09/10/2018 | | 03:13 pmBMI:26.6 09/10/2018 03:13 pmBP:98/60 sitting L arm 09/10/2018 | | 03:14 pgZ0Ttw:96% Room Air at Rest 09/10/2018 03:14 pmPulse:79 bpm | | regular 09/10/2018 03:14 pmAllergiesAllergies not reviewed (last | | reviewed 07/06/2018)PRAVACHOL: Myalgias (muscle pain), Other - | | FatigueMedicationsReviewed MedicationsName: Adult Aspirin Regimen 81 mg | | tablet,delayed release Take 1 tablet(s) every day by oral route.Date: | | 09/03/18 enteredSource: Kathy ConnerName: Anoro Ellipta 62.5 mcg-25 | | mcg/actuation powder for inhalation PRNDate: 10/19/17 filledSource: | | PRESCRIPTION SOLUTIONSName: atorvastatin 40 mg tablet Take 1 tablet(s) | | every day by oral route.Date: 09/13/18 filledSource: PRESCRIPTION | | SOLUTIONSName: carvedilol 6.25 mg tablet Take 1 tablet(s) twice a day | | by oral route.Date: 09/13/18 filledSource: PRESCRIPTION | | SOLUTIONSName: furosemide 40 mg tablet Take 1 tablet(s) twice a day by | | oral route.Date: 09/08/18 filledSource: PRESCRIPTION SOLUTIONSName: | | gabapentin 600 mg tablet Take 2 tablet(s) 3 times a day by oral | | route.Date: 06/01/18 filledSource: PRESCRIPTION SOLUTIONSName: | | HumaLOG KwikPen (U-100) Insulin 100 unit/mL subcutaneous sliding scale | | with 5 units being most injected PRNDate: 06/01/17 filledSource: | | PRESCRIPTION SOLUTIONSName: Lantus U-100 Insulin 100 unit/mL | | subcutaneous solution 10 units subq dailyDate: 05/10/18 filledSource: | | PRESCRIPTION SOLUTIONSName: ProAir HFA 90 mcg/actuation aerosol | | inhaler Inhale 2 puff(s) every 4 hours by inhalation route.Date: | | 08/27/17 filledSource: PRESCRIPTION SOLUTIONSName: Questran 4 gram | | oral powder Take 1 scoop(s) every day by oral route.Note: for | | diarrheaDate: 09/17/18 prescribedSource: Ellen SOFIA: | | TRUEplus Pen Needle 31 gauge x 10/09"Date: 03/03/17 filledSource: | | PRESCRIPTION SOLUTIONSName: Vitamin D2 50,000 unit capsule Take 1 | | capsule(s) every week by oral route.Date: 06/16/18 prescribedSource: | | JONO RHOADES, DOVaccinesVaccines not reviewed (last reviewed | | 09/03/2018)Vaccine Type: influenza, high dose seasonalDate: | | 04/21/18Amt.: 0.5 mLRoute: IntramuscularSite: Deltoid, RightNDC:Lot #: | | [id number].: Sanofi PasteurExp. Date: 10/23/18Date on VIS: 03/02/15VIS | | Given: 04/21/18Vaccinator: TRAVIS OmalleyVaccine Type: influenza, | | high dose seasonalDate: 06/02/17mt.:Route:Site:NDC:Lot #:Mfr.:Exp. | | Date:Date on VIS:VIS Given:Account Solutions Analyst:Vaccine Type: influenza, | | injectable, quadrivalentDate: 06/02/17mt.:Route:Site: Deltoid, | | RightNDC:Lot #: [id number].: SeqirusExp. Date: 01/23/18Date on | | VIS:VIS Given: 06/02/17Vaccinator:Vaccine Type: pneumococcal conjugate | | PCV 13Date: 11/09/17Amt.: 0.5 mLRoute: IntramuscularSite: Deltoid, | | RightNDC:Lot #: [id number].: Other manufacturerExp. Date: 09/25/19Date | | on VIS: 05/31/15VIS Given: 11/09/17Vaccinator: Meghan MolnairdVaccine | | Type: pneumococcal polysaccharide [id number]: | | 05/27/16Amt.:Route:Site:[facility]:Lot #:Mfr.:Exp. Date:Date on VIS:VIS | | Given:Account Solutions Analyst:ProblemsReviewed Problems* Vitamin D deficiency - | | Onset: 06/16/2018* Hepatitis C antibody test positive - Onset: | | 12/28/2017* Essential hypertension* Postmenopausal osteoporosis* Lumbar | | radiculopathy* Diabetic neuropathy* Cardiomyopathy - Onset: | | 2017* Stasis dermatitis - Onset: 2017* Mixed hyperlipidemia | | - Onset: 10/03/2017* Tobacco user - Onset: 10/03/2017* Type II | | diabetes mellitus uncontrolled - Onset: 10/03/2017* Amputated below | | knee - Onset: 10/03/2017* Chronic obstructive lung disease - Onset: | | 08/27/2017* Chronic kidney disease stage 4 - Onset: 09/10/2018Family | | HistoryReviewed Family HistoryBrother- Heart disease- all 3 of | | this- Type 2 diabetes mellitusMother- Pulmonary emphysema- Disorder of | | thyroid glandPaternal Grandmother- Malignant tumor of breastSister- | | Malignant tumor of breast- Type 2 diabetes mellitusSocial HistorySocial | | History not reviewed (last reviewed 04/21/2018)Family Medicine and | | Medical Wellness Visit/IPPEAble to Care for Self: NLive alone or with | | others?: with othersAdvance directive: Marycruz you currently employed?: | | NEducation: 12Occupation: DisabledNumber of children: 3Guns present in | | home: NAlcohol intake: NoneCaffeine intake: OccasionalIllicit drugs: | | NODiet: DiabeticExercise level: NoneHard of hearing or deaf in one or | | both ears?: NLegally blind in one or both eyes?: NSexual orientation: | | HeterosexualSmoke alarm in home: YSmoking Status: Current every day | | smokerChewing tobacco: noneSmoker (1 /2 PPD)Has smoked since age: | | 25Tobacco-years of use: 25Passive smoke exposure?: YSeat belts used | | routinely: YSunscreen used routinely: NIs the patient ambulatory?: Yes: | | limited self-mobility with assistive device(s); generally relies on | | wheeled mobilityTobacco cessation counseling provided?: YSingle or | | multi-level home/work?: single level homeMarital status: | | MarriedSurgical HistorySurgical History not reviewed (last reviewed | | 04/21/2018)* Cholecystectomy* Amputation - 02/25/2016 - LT leg | | amputation above the knee* Colonoscopy - 02/24/2014* Stent - 07/27/2006 | | - cardiac stent* delivery - 07/27/1975GYN HistoryGYN History | | not reviewed (last reviewed 04/21/2018)Most Recent Mammogram: (Notes: | | never had).Obstetric HistoryObstetric History not reviewed (last | | reviewed 04/21/2018)TOTAL: 3FULL: 3PRE:AB. I:AB. | | S:ECTOPICS:MULTIPLE:LIVINPast Medical HistoryPast Medical History | | not reviewed (last reviewed 04/21/2018)Other: Y - Dialysis from 02/2016 | | to 10/2016 with fistula in LT armStent: Y - cardiac stentNotes: Broke | | LT leg on 01/21/2016 and had internal fixation performed but after she | | was discharged, she was admitted back into the hospital 2 weeks later | | with severe infection. Her LT leg (from knee down) amputated 03/03/2016 | | from severe infection while in [facility].HPITremorsReported | | by patient.Hand Dominance: rightLocation: entire bodySeverity: | | severeDuration: Happened yesterday for 1.5 hours. Has not had any | | sinceOnset/Timing: gone nowROSConstitutional: Constitutional: no | | significant weight gain or loss and no fever; + | | drowsiness.Cardiovascular: Cardiovascular: no chest pain.Respiratory: | | Respiratory: shortness of breath (baseline).Neurologic: Neurologic: | | tremor.Endocrine: Endocrine: fatigue.ROS as noted in the HPIPhysical | | ExamPatient is a 67-year-old female.Constitutional: General Appearance: | | well-nourished and well-developed. Level of Distress: chronically ill. | | Ambulation: in wheelchair.Psychiatric: Mental Status: active and | | alert.Eyes: Pupils: PERRLA. EOM: EOMI.ENMT: Ears: no lesions on | | external ear and TMs clear. Hearing: no hearing loss.Lungs: | | Auscultation: decreased breath sounds.Cardiovascular: Heart | | Auscultation: RRR and CARLIE (09/29).Abdomen: Bowel Sounds: normal. | | Inspection and Palpation: soft.Musculoskeletal:: Extremities: left BKA, | | RLE with 2+ edema up into thigh.Neurologic: Sensation Right Foot: | | right facial weakness with + [place] sign-improved.Skin: Lesion Type: | | location: RLE. Color: pink. Location/Description: well demarcated. | | Infectious signs: no warmth, swelling, tenderness, fluctuance, | | induration, or lymphangitic streaking; serous drainage.Foot Exam:: | | Right Foot: right foot toes were examined and digital hair absent | | right; Marked swelling and loss of sensation. Left Foot: | | amputated.Assessment / Plan1. Hypersomnia -Decrease gabapentin to 600mg | | BID--has only been taking 1200mg BIDG47.10: Hypersomnia, unspecified* | | COMPREHENSIVE METABOLIC PANEL2. ZlggnzP83.1: Tremor, unspecified3. Body | | mass index 25-29 - zvtgrabedgP25.26: Body mass index (BMI) 26.0-26.9, | | adult* LEARNING ABOUT HEALTHY WEIGHT4. Chronic obstructive lung disease | | -J44.9: Chronic obstructive pulmonary disease, unspecified* OVERNIGHT | | PULSE OXIMETRY REFERRAL -Schedule Within: provider's discretion5. | | VgebqteK60.83: Other fatigue* TSH* COMPLETE BLOOD COUNT WITH AUTO | | DIFF6. Type II diabetes mellitus uncontrolled -E11.65: Type 2 diabetes | | mellitus with hyperglycemia* TYPE 2 DIABETES: CARE INSTRUCTIONS7. | | Amputated below knee -added to note due to risk score gapZ89.519: | | Acquired absence of unspecified leg below knee8. Chronic kidney disease | | stage 4 -N18.4: Chronic kidney disease, stage 4 (severe)* PHOSPHORUS* | | MAGNESIUM* VITAMIN D, 25 HYDROXYGoalsReturn to OfficeNone | | recorded.Encounter Sign-OffEncounter signed-off by JONO RHOADES DO, | | 09/19/2018. | + + + + + + +---+ + | OUTPATIEN | Attender: | [facility] | | | [facility] | | T | Jono | | 9 | | r | | | Jf | Medicine | 02:34:00 | | Physician | | | | | 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 | | s Hot | | | | | | | [place] | | | | | | | Sadaf | + + + + +---+ + | OUTPATIEN | Attender: | [facility] | | | [facility] | | T | [facility]o [facility] | 9 | | r | | | Jf | Medicine | 02:34:00 | | Physician | | | | | 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 | | s Hot | | | | | | | [place] | | | | | | | Sadaf | + + + + +---+ + | OUTPATIEN | Attender: | [facility] | | | [facility] | | T | Jono | Family | 9 | | r | | | Jf | Medicine | 02:34:00 | | Physician | | | | | 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 | | s Hot | | | | | | | [place] | | | | | | | Sadaf | + + + + +---+ + | OUTPATIEN | Attender: | [place] | | | [facility] | | T | Jono | Family | 9 | | r | | | Jf | Medicine | 11:23:00 | | Physician | | | | | 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 | | s Hot | | | | | | | [place] | | | | | | | [place] | + + + + +---+ + | OUTPATIEN | Attender: | [place] | | | [facility] | | T | Jono | Family | 9 | | r | | | Jf | Medicine | 09:50:00 | | Physician | | | | | 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 | | s Hot | | | | | | | [place] | | | | | | | Sadaf | + + + + +---+ + | OUTPATIEN | Attender: | [place] | | | [facility] | | T | Jono | Family | 9 | | r | | | Jf | Medicine | 09:50:00 | | Physician | | | | | 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 | | s Hot | | | | | | | [place] | | | | | | | [place] | + + + + +---+ + | OUTPATIEN | Attender: | [place] | | | [facility] | | T | Jono | Family | 9 | | r | | | Jf | Medicine | 08:36:00 | | Physician | | | | | 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 | | s Hot | | | | | | | [place] | | | | | | | Sadaf | + + + + +---+ + | OUTPATIEN | Attender: | [place] | | | [facility] | | T | Jono | Family | 9 | | r | | | Jf | Medicine | 10:39:00 | | Physician | | | | | 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 | | s Hot | | | | | | | [place] | | | | | | | [place] | + + + + +---+ + | OUTPATIEN | Attender: | [place] | | | [facility] | | T | Jono | Family | 9 | | r | | | Jf | Medicine | 08:08:00 | | Physician | | | | | 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 | | s Hot | | | | | | | [place] | | | | | | | [place] | + + + + +---+ + | OUTPATIEN | Admitter: | [place] | | | [facility] | | T | SHARI | Family | 9 | | r | | | AALIYAH | Medicine | 12:50:00 | | Physician | | | | | 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 | | s Hot | | | | | | | [place] | | | | | | | [place] | + + + + +---+ + | OUTPATIEN | Admitter: | [place] | | | [facility] | | T | SHARI | Family | 9 | | r | | | AALIYAH | Medicine | 12:25:00 | | Physician | | | | | 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 | | s Hot | | | | | | | [place] | | | | | | | [place] | + + + + +---+ + | OUTPATIEN | Admitter: | [place] | | | [facility] | | T | SHARI | Family | 9 | | r | | | AALIYAH | Medicine | 12:39:00 | | Physician | | | | | 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 | | s Hot | | | | | | | [place] | | | | | | | Sadaf | + + + + +---+ + | OUTPATIEN | Admitter: | [place] | | | [facility] | | T | SHARI | Family | 9 | | r | | | AALIYAH | Medicine | 12:06:00 | | Physician | | | | | 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 | | s Hot | | | | | | | [place] | | | | | | | [place] | + + + + +---+ + | Outpatien | Attender: | [place] | | | [facility] | | t | OWEN | Family | 9 | | r | | | | Medicine | 11:06:00 | | Physician | | | LABAdmitt | | 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 | | s Hot | | | er: SHARI | | | | [place] | | | AALIYAH | | | | Sadaf | + + + + +---+ + + + | PatientName : ANDIE BEAN (67yo, Katya) ID# [id number]. Date/Time : | | 09/06/2018 11:00AMDOB : [address] [place] [address] Dept. : [facility] | | MedicineProvider : Shea SOFIAcritical access hospitalMed Primary: [place] | | HEALTHCARE (MEDICARE REPLACEMENT/ADVANTAGE - PPO)Insurance # : | | [id number]/Group # : [id number]: ORX - Member is eligible. | | detailsChief ComplaintLabPatient's Care TeamNurse Practitioner: SHARI | | TRAVIS DURHAMPrimary Care Provider: Tanner SOFIAnt's | | [facility] ([facility]): [facility] [address], | | [place] [address], , VitalsNone | | recorded.AllergiesAllergies not reviewed (last reviewed | | 07/06/2018)PRAVACHOL: Myalgias (muscle pain), Other - | | FatigueMedicationsReviewed MedicationsName: Adult Aspirin Regimen 81 mg | | tablet,delayed release Take 1 tablet(s) every day by oral route.Date: | | 09/03/18 enteredSource: Kathy ConnerName: Anoro Ellipta 62.5 mcg-25 | | mcg/actuation powder for inhalation PRNDate: 10/19/17 filledSource: | | PRESCRIPTION SOLUTIONSName: atorvastatin 40 mg tablet Take 1 tablet(s) | | every day by oral route.Date: 06/28/18 filledSource: PRESCRIPTION | | SOLUTIONSName: carvedilol 6.25 mg tablet Take 1 tablet(s) twice a day | | by oral route.Date: 08/20/18 filledSource: PRESCRIPTION | | SOLUTIONSName: furosemide 40 mg tablet Take 1 tablet(s) twice a day by | | oral route.Date: 08/16/18 filledSource: PRESCRIPTION SOLUTIONSName: | | gabapentin 600 mg tablet Take 2 tablet(s) 3 times a day by oral | | route.Date: 06/01/18 filledSource: PRESCRIPTION SOLUTIONSName: | | HumaLOG KwikPen (U-100) Insulin 100 unit/mL subcutaneous sliding scale | | with 5 units being most injected PRNDate: 06/01/17 filledSource: | | PRESCRIPTION SOLUTIONSName: HYDROcodone 10 mg-acetaminophen 325 mg | | tablet 1/2 -1 po TID prn painDate: 12/28/17 filledSource: | | PRESCRIPTION SOLUTIONSName: Lantus U-100 Insulin 100 unit/mL | | subcutaneous solution 10 units subq dailyDate: 05/10/18 filledSource: | | PRESCRIPTION SOLUTIONSName: ProAir HFA 90 mcg/actuation aerosol | | inhaler Inhale 2 puff(s) every 4 hours by inhalation route.Date: | | 08/27/17 filledSource: PRESCRIPTION SOLUTIONSName: TRUEplus Pen | | Needle 31 gauge x 10/09"Date: 03/03/17 filledSource: PRESCRIPTION | | SOLUTIONSName: Vitamin D2 50,000 unit capsule Take 1 capsule(s) every | | week by oral route.Date: 06/16/18 prescribedSource: JONO RHOADES, | | DOVaccinesVaccines not reviewed (last reviewed 09/03/2018)Vaccine Type: | | influenza, high dose seasonalDate: 04/21/18Amt.: 0.5 mLRoute: | | IntramuscularSite: Deltoid, RightNDC:Lot #: [id number].: Sanofi | | PasteurExp. Date: 10/23/18Date on VIS: 03/02/15VIS Given: | | 04/21/18Vaccinator: TRAVIS OmalleyVaccine Type: influenza, high | | dose seasonalDate: 06/02/17mt.:Route:Site:NDC:Lot #:[id number].:Exp. | | Date:Date on VIS:VIS Given:Account Solutions Analyst:Vaccine Type: influenza, | | injectable, quadrivalentDate: 06/02/17mt.:Route:Site: Deltoid, | | RightNDC:Lot #: [id number].: SeqirusExp. Date: 01/23/18Date on | | VIS:VIS Given: 06/02/17Vaccinator:Vaccine Type: pneumococcal conjugate | | PCV 13Date: 11/09/17Amt.: 0.5 mLRoute: IntramuscularSite: Deltoid, | | RightNDC:Lot #: [id number].: Other manufacturerExp. Date: 09/25/19Date | | on VIS: 05/31/15VIS Given: 04/16/18Vaccinator: Meghan Cliffordlakia | | Type: pneumococcal polysaccharide [id number]: | | 05/27/16Amt.:Route:Site:[facility]:Lot #:Mfr.:Exp. Date:Date on VIS:VIS | | Given:Account Solutions Analyst:ProblemsReviewed Problems* Vitamin D deficiency - | | Onset: 06/16/2018* Hepatitis C antibody test positive - Onset: | | 12/28/2017* Essential hypertension* Postmenopausal osteoporosis* Lumbar | | radiculopathy* Diabetic neuropathy* Cardiomyopathy - Onset: | | 2017* Stasis dermatitis - Onset: 2017* Mixed hyperlipidemia | | - Onset: 10/03/2017* Tobacco user - Onset: 10/03/2017* Type II | | diabetes mellitus uncontrolled - Onset: 10/03/2017* Amputated below | | knee - Onset: 10/03/2017* Chronic obstructive lung disease - Onset: | | 08/27/2017Family HistoryFamily History not reviewed (last reviewed | | 04/21/2018)Brother- Heart disease- all 3 of this- Type 2 diabetes | | mellitusMother- Pulmonary emphysema- Disorder of thyroid glandPaternal | | Grandmother- Malignant tumor of breastSister- Malignant tumor of | | breast- Type 2 diabetes mellitusSocial HistorySocial History not | | reviewed (last reviewed 04/21/2018)Family Medicine and Medical Wellness | | Visit/IPPEAble to Care for Self: NLive alone or with others?: with | | othersAdvance directive: Jose Antonioe you currently employed?: NEducation: | | 12Occupation: DisabledNumber of children: 3Guns present in home: | | NAlcohol intake: NoneCaffeine intake: OccasionalIllicit drugs: NODiet: | | DiabeticExercise level: NoneHard of hearing or deaf in one or both | | ears?: NLegally blind in one or both eyes?: NSexual orientation: | | HeterosexualSmoke alarm in home: YSmoking Status: Current every day | | smokerChewing tobacco: noneSmoker (07/28 PPD)Has smoked since age: | | 25Tobacco-years of use: 25Passive smoke exposure?: YSeat belts used | | routinely: YSunscreen used routinely: NIs the patient ambulatory?: Yes: | | limited self-mobility with assistive device(s); generally relies on | | wheeled mobilityTobacco cessation counseling provided?: YSingle or | | multi-level home/work?: single level homeMarital status: | | MarriedSurgical HistorySurgical History not reviewed (last reviewed | | 04/21/2018)* Cholecystectomy* Amputation - 02/25/2016 - LT leg | | amputation above the knee* Colonoscopy - 02/24/2014* Stent - 07/27/2006 | | - cardiac stent* delivery - 07/27/1975GYN HistoryGYN History | | not reviewed (last reviewed 04/21/2018)Most Recent Mammogram: (Notes: | | never had).Obstetric HistoryObstetric History not reviewed (last | | reviewed 04/21/2018)TOTAL: 3FULL: 3PRE:AB. I:AB. | | S:ECTOPICS:MULTIPLE:LIVINPast Medical HistoryPast Medical History | | not reviewed (last reviewed 04/21/2018)Other: Y - Dialysis from 02/2016 | | to 10/2016 with fistula in LT armStent: Y - cardiac stentNotes: Broke | | LT leg on 01/21/2016 and had internal fixation performed but after she | | was discharged, she was admitted back into the hospital 2 weeks later | | with severe infection. Her LT leg (from knee down) amputated 03/03/2016 | | from severe infection while in [facility].Assessment / | | Plan1. Diarrhea -R19.7: Diarrhea, unspecified* STOOL CULTURE -Specimen | | source: StoolSpecimen Type: STOOL* OVA & PARASITES -Specimen source: | | StoolSource: STOOL* CLOSTRIDIUM DIFFICILE TOXIN -Specimen source: | | Stool2. Diabetic neuropathy -added to note due to risk score gapE11.40: | | Type 2 diabetes mellitus with diabetic neuropathy, unspecified3. | | Cardiomyopathy -added to note due to risk score gapI42.9: | | Cardiomyopathy, unspecified4. Peripheral circulatory disorder | | associated with type 2 diabetes mellitus -added to note due to risk | | score gapE11.51: Type 2 diabetes mellitus with diabetic peripheral | | angiopathy without gangrene5. Acute exacerbation of chronic obstructive | | airways disease -added to note due to risk score gapJ44.1: Chronic | | obstructive pulmonary disease with (acute) exacerbation6. Chronic | | kidney disease stage 5 -added to note due to risk score gapN18.5: | | Chronic kidney disease, stage 57. Amputated below knee -added to note | | due to risk score gapZ89.519: Acquired absence of unspecified leg below | | kneeGoalsReturn to Office* JONO RHOADES DO for Established Patient | | [facility] at [facility] on 09/17/2018 at 10:30 AMEncounter | | Sign-OffEncounter signed-off by JONO RHOADES DO, 09/06/2018. | + + + + + + +---+ + | OUTPATIEN | Admitter: | [place] | | | [facility] | | T | SHARI | [facility] | 9 | | r | | | [place] | [facility] | 11:33:00 | | Physician | | | | | 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 | | s Hot | | | | | | | [place] | | | | | | | [place] | + + + + +---+ + | OUTPATIEN | Admitter: | [place] | | | [facility] | | T | SHARI | [facility] | 9 | | r | | | [place] | [facility] | 05:28:00 | | Physician | | | | | 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 | | s Hot | | | | | | | [place] | | | | | | | [place] | + + + + +---+ + | OUTPATIEN | Admitter: | [facility] | | | [facility] | | T | SHARI | Family | 9 | | r | | | AALIYAH | Medicine | 05:27:00 | | Physician | | | | | 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 | | s Hot | | | | | | | [place] | | | | | | | [place] | + + + + +---+ + | OUTPATIEN | Admitter: | [place] | | | [facility] | | T | SHARI | Family | 9 | | r | | | AALIYAH | Medicine | 05:06:00 | | Physician | | | | | 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 | | s Hot | | | | | | | [place] | | | | | | | Sadaf | + + + + +---+ + | OUTPATIEN | Admitter: | [place] | | | [facility] | | T | SHARI | Family | 9 | | r | | | AALIYAH | Medicine | 05:04:00 | | Physician | | | | | 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 | | s Hot | | | | | | | [place] | | | | | | | Sadaf | + + + + +---+ + | OUTPATIEN | Admitter: | [place] | | | [facility] | | T | SHARI | Family | 9 | | r | | | [place] | [facility] | 05:04:00 | | Physician | | | | | 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 | | s Hot | | | | | | | [place] | | | | | | | [place] | + + + + +---+ + | OUTPATIEN | Admitter: | [place] | | | [facility] | | T | SHARI | Family | 9 | | r | | | [place] | [facility] | 05:03:00 | | Physician | | | | | 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 | | s Hot | | | | | | | [place] | | | | | | | [place] | + + + + +---+ + | OUTPATIEN | Admitter: | [facility] | | | [facility] | | T | SHARI | Family | 9 | | r | | | [place] | [facility] | 05:03:00 | | Physician | | | | | 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 | | s Hot | | | | | | | [place] | | | | | | | [place] | + + + + +---+ + | OUTPATIEN | Admitter: | [place] | | | [facility] | | T | SHARI | Family | 9 | | r | | | AALIYAH | Medicine | 05:03:00 | | Physician | | | | | 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 | | s Hot | | | | | | | [place] | | | | | | | Sadaf | + + + + +---+ + | Outpatien | Attender: | [facility] | | | [facility] | | t | Jono | Family | 9 | | r | | | JfAdm | Medicine | 10:03:00 | | Physician | | | itter: | | 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 - | | s Hot | | | SHARI | | | | [place] | | | AALIYAH | | 9 | | Sadaf | | | | | 12:04:00 | | | | | | | 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 | | | + + + + +---+ + + + | PatientName : ANDIE BEAN (67yo, F) ID# [id number]. Date/Time : | | 09/03/2018 10:15AMDOB : 1950ervice Dept. : [facility] | | MedicineProvider : JONO RHOADES, BurkeMed Primary: [place] | | HEALTHCARE (MEDICARE REPLACEMENT/ADVANTAGE - PPO)Insurance # : | | [id number]/Group # : [id number]: ORX - Member is eligible. | | detailsChief ComplaintdiarrheaPatient's Care TeamNurse Practitioner: | | SHARI DURHAM, CNSPrimary Care Provider: Arthur SOFIA | | [facility] [place] ([place]): [address], | | [place] [address], , VitalsHt:5 ft 5 | | in (165.1 cm) 09/03/2018 10:22 amWt:160 lbs (72.57 kg) 09/03/2018 | | 10:23 amBMI:26.6 09/03/2018 10:23 amBP:138/78 sitting L arm 09/03/2018 | | 10:23 dtY1Vub:97% Room Air at Rest 09/03/2018 10:23 amPulse:70 bpm | | regular 09/03/2018 10:23 amAllergiesAllergies not reviewed (last | | reviewed 07/06/2018)PRAVACHOL: Myalgias (muscle pain), Other - | | FatigueMedicationsReviewed MedicationsName: Adult Aspirin Regimen 81 mg | | tablet,delayed release Take 1 tablet(s) every day by oral route.Date: | | 09/03/18 enteredSource: Kathy ConnerName: Anoro Ellipta 62.5 mcg-25 | | mcg/actuation powder for inhalation PRNDate: 10/19/17 filledSource: | | PRESCRIPTION SOLUTIONSName: atorvastatin 40 mg tablet Take 1 tablet(s) | | every day by oral route.Date: 06/28/18 filledSource: PRESCRIPTION | | SOLUTIONSName: carvedilol 6.25 mg tablet Take 1 tablet(s) twice a day | | by oral route.Date: 08/20/18 filledSource: PRESCRIPTION | | SOLUTIONSName: furosemide 40 mg tablet Take 1 tablet(s) twice a day by | | oral route.Date: 08/16/18 filledSource: PRESCRIPTION SOLUTIONSName: | | gabapentin 600 mg tablet Take 2 tablet(s) 3 times a day by oral | | route.Date: 06/01/18 filledSource: PRESCRIPTION SOLUTIONSName: | | HumaLOG KwikPen (U-100) Insulin 100 unit/mL subcutaneous sliding scale | | with 5 units being most injected PRNDate: 06/01/17 filledSource: | | PRESCRIPTION SOLUTIONSName: HYDROcodone 10 mg-acetaminophen 325 mg | | tablet 1/2 -1 po TID prn painDate: 12/28/17 filledSource: | | PRESCRIPTION SOLUTIONSName: Lantus U-100 Insulin 100 unit/mL | | subcutaneous solution 10 units subq dailyDate: 05/10/18 filledSource: | | PRESCRIPTION SOLUTIONSName: ProAir HFA 90 mcg/actuation aerosol | | inhaler Inhale 2 puff(s) every 4 hours by inhalation route.Date: | | 08/27/17 filledSource: PRESCRIPTION SOLUTIONSName: TRUEplus Pen | | Needle 31 gauge x 10/09"Date: 03/03/17 filledSource: PRESCRIPTION | | SOLUTIONSName: Vitamin D2 50,000 unit capsule Take 1 capsule(s) every | | week by oral route.Date: 06/16/18 prescribedSource: JONO RHOADES, | | DOVaccinesReviewed VaccinesVaccine Type: influenza, high dose | | seasonalDate: 04/21/18Amt.: 0.5 mLRoute: IntramuscularSite: Deltoid, | | RightND:Lot #: [id number].: Sanofi PasteurExp. Date: 10/23/18Date on | | VIS: 03/02/15VIS Given: 04/21/18Vaccinator: Mukul Omalley | | Type: influenza, high dose seasonalDate: | | 06/02/17mt.:Route:Site:[facility]:Lot #:Mfr.:Exp. Date:Date on VIS:VIS | | Given:Account Solutions Analyst:Vaccine Type: influenza, injectable, quadrivalentDate: | | 06/02/17mt.:Route:Site: Deltoid, RightNDC:Lot #: [id number].: | | SeqirusExp. Date: 01/23/18Date on VIS:VIS Given: | | 06/02/17Vaccinator:Vaccine Type: pneumococcal conjugate PCV 13Date: | | 11/09/17Amt.: 0.5 mLRoute: IntramuscularSite: Deltoid, RightNDC:Lot #: | | [id number].: Other manufacturerExp. Date: 09/25/19Date on VIS: | | 05/31/15VIS Given: 11/09/17Vaccinator: Meghan NavidVaccine Type: | | pneumococcal polysaccharide [id number]: 05/27/16Amt.:Route:Site:NDC:Lot | | #:Mfr.:Exp. Date:Date on VIS:VIS Given:Account Solutions Analyst:ProblemsReviewed | | Problems* Vitamin D deficiency - Onset: 06/16/2018* Hepatitis C | | antibody test positive - Onset: 12/28/2017* Essential hypertension* | | Postmenopausal osteoporosis* Lumbar radiculopathy* Diabetic neuropathy* | | Cardiomyopathy - Onset: 2017* Stasis dermatitis - Onset: | | 2017* Mixed hyperlipidemia - Onset: 10/03/2017* Tobacco user - | | Onset: 10/03/2017* Type II diabetes mellitus uncontrolled - Onset: | | 10/03/2017* Amputated below knee - Onset: 10/03/2017* Chronic kidney | | disease stage 4 - Onset: 10/03/2017* Chronic obstructive lung disease - | | Onset: 08/27/2017Family HistoryFamily History not reviewed (last | | reviewed 04/21/2018)Brother- Heart disease- all 3 of this- Type 2 | | diabetes mellitusMother- Pulmonary emphysema- Disorder of thyroid | | glandPaternal Grandmother- Malignant tumor of breastSister- Malignant | | tumor of breast- Type 2 diabetes mellitusSocial HistorySocial History | | not reviewed (last reviewed 04/21/2018)Family Medicine and Medical | | Wellness Visit/IPPEAble to Care for Self: NLive alone or with others?: | | with othersAdvance directive: Marycruz you currently employed?: NEducation: | | 12Occupation: DisabledNumber of children: 3Guns present in home: | | NAlcohol intake: NoneCaffeine intake: OccasionalIllicit drugs: NODiet: | | DiabeticExercise level: NoneHard of hearing or deaf in one or both | | ears?: NLegally blind in one or both eyes?: NSexual orientation: | | HeterosexualSmoke alarm in home: YSmoking Status: Current every day | | smokerChewing tobacco: noneSmoker (1 1/2 PPD)Has smoked since age: | | 25Tobacco-years of use: 25Passive smoke exposure?: YSeat belts used | | routinely: YSunscreen used routinely: NIs the patient ambulatory?: Yes: | | limited self-mobility with assistive device(s); generally relies on | | wheeled mobilityTobacco cessation counseling provided?: YSingle or | | multi-level home/work?: single level homeMarital status: | | MarriedSurgical HistorySurgical History not reviewed (last reviewed | | 04/21/2018)* Cholecystectomy* Amputation - 02/25/2016 - LT leg | | amputation above the knee* Colonoscopy - 02/24/2014* Stent - 07/27/2006 | | - cardiac stent* delivery - 07/27/1975GYN HistoryGYN History | | not reviewed (last reviewed 04/21/2018)Most Recent Mammogram: (Notes: | | never had).Obstetric HistoryObstetric History not reviewed (last | | reviewed 04/21/2018)TOTAL: 3FULL: 3PRE:AB. I:AB. | | S:ECTOPICS:MULTIPLE:LIVINPast Medical HistoryPast Medical History | | not reviewed (last reviewed 04/21/2018)Other: Y - Dialysis from 02/2016 | | to 10/2016 with fistula in LT armStent: Y - cardiac stentNotes: Broke | | LT leg on 01/21/2016 and had internal fixation performed but after she | | was discharged, she was admitted back into the hospital 2 weeks later | | with severe infection. Her LT leg (from knee down) amputated 03/03/2016 | | from severe infection while in [place] [facility].HPIDiarrheaReported by patient.Quality: frequent; watery (if | | she doesn't take pepto); looseSeverity: severeDuration: | | chronicOnset/Timing: worse in the morning; worse in the evening; worse | | in the afternoon; worse with meals; nocturnal diarrheaContext: no one | | else with similar symptomsAlleviating Factors: OTC medication | | (Pepto)Associated Symptoms: abdominal pain; crampingNotes:She states | | immodium causes her to be constipated. She states there is no in | | between and she can't leave the house due to frequent | | accidents.ROSConstitutional: Constitutional: no significant weight gain | | or loss and no fever.ENMT: Ears: no difficulty hearing. Nose: no sinus | | problems.Cardiovascular: Cardiovascular: no chest pain.Respiratory: | | Respiratory: no cough or shortness of breath.Gastrointestinal: | | Gastrointestinal: nausea, vomiting, constipation, abdominal pain, | | change in appetite, and frequent diarrhea.Genitourinary: Genitourinary: | | no incontinence or difficulty urinating; no dysuria.Musculoskeletal: | | Musculoskeletal: no muscle aches.Integumentary: Skin: no | | rashes.Neurologic: Neurologic: no weakness, numbness, or | | headaches.Psychiatric: Psych: no depression.Endocrine: Endocrine: no | | fatigue.Hematologic/Lymphatic: Hematologic/Lymphatic no swollen | | glands.ROS as noted in the HPIPhysical ExamPatient is a 67-year-old | | female.Constitutional: General Appearance: well-nourished and | | well-developed. Level of Distress: chronically ill. Ambulation: in | | wheelchair.Psychiatric: Mental Status: active and alert.Lungs: | | Auscultation: decreased breath sounds.Cardiovascular: Heart | | Auscultation: RRR and CARLIE (3/6).Abdomen: Bowel Sounds: normal. | | Inspection and Palpation: soft.Musculoskeletal:: Extremities: left BKA, | | RLE with 2+ edema up into thigh.Assessment / Plan1. Diarrhea -Stool | | hllmfslB80.7: Diarrhea, unspecified* DIARRHEA: CARE INSTRUCTIONS* XR, | | ABDOMEN2. Body mass index 25-29 - kbkatdljnaG25.26: Body mass index | | (BMI) 26.0-26.9, adult3. Diabetic neuropathy -E11.40: Type 2 diabetes | | mellitus with diabetic neuropathy, unspecified4. Cardiomyopathy -I42.9: | | Cardiomyopathy, unspecified5. Peripheral circulatory disorder | | associated with type 2 diabetes ibcnolsjA06.51: Type 2 diabetes | | mellitus with diabetic peripheral angiopathy without gangrene6. Acute | | exacerbation of chronic obstructive airways disease -J44.1: Chronic | | obstructive pulmonary disease with (acute) exacerbation7. Chronic | | kidney disease stage 5N18.5: Chronic kidney disease, stage 5* CHRONIC | | KIDNEY DISEASE: CARE INSTRUCTIONS* END-STAGE RENAL DISEASE: CARE | | INSTRUCTIONS8. Amputated below knee -Z89.519: Acquired absence of | | unspecified leg below knee9. Chronic kidney disease stage 4 -N18.4: | | Chronic kidney disease, stage 4 (severe)10. Constipation -K59.00: | | Constipation, mattsqzbftm15. Hepatitis C antibody test positive | | -Z86.19: Personal history of other infectious and parasitic nkuolodn83. | | Essential hypertension -I10: Essential (primary) dnvwejjvdpjc13. | | Postmenopausal osteoporosis -M81.0: Age-related osteoporosis without | | current pathological . Lumbar radiculopathy -M54.16: | | Radiculopathy, lumbar . Mixed hyperlipidemia -E78.2: Mixed | | vhvoohgztkkczk47. Tobacco user -Continues to qoabmG59.0: Tobacco use* | | STOPPING SMOKING: CARE GGPLLIBXCKAL50. Type II diabetes mellitus | | uncontrolled -E11.65: Type 2 diabetes mellitus with zxghjdowwkwyt29. | | Chronic obstructive lung disease -J44.9: Chronic obstructive pulmonary | | disease, unspecifiedGoalsReturn to Office* to see JONO RHOADES DO at | | [facility] on or around 09/17/2018Encounter | | Sign-OffEncounter signed-off by JONO RHOADES DO, 09/05/2018. | + + + + + + +---+ + | OUTPATIEN | Admitter: | [place] | | [facility] | | T | SHARI | Family | 9 | | r | | | [facility] | Medicine | 01:06:00 | | Physician | | | | | 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 | | s Hot | | | | | | | [place] | | | | | | | [place] | + + + + +---+ + | OUTPATIEN | Admitter: | [facility] | | | National | | T | DR | [facility] | 8 | | Park | | | [facility] | Cardiolog | 08:36:00 | | Medical | | | [facility] | y | 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 | | Center | | | | Associate | | | Clinics | | | | s | | | | + + + + +---+ + | OUTPATIEN | Admitter: | [place] | | | [facility] | | T | SHARI | Family | 8 | | r | | | [facility] [place] | [facility] | 12:39:00 | | Physician | | | | | 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 | | s Hot | | | | | | | [place] | | | | | | | [facility] | + + + + +---+ + | OUTPATIEN | Admitter: | [place] | | | [facility] | | T | SHARI | Family | 8 | | r | | | [place] [place] | Medicine | 12:34:00 | | Physician | | | | | 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 | | s Hot | | | | | | | [place] | | | | | | | [place] | + + + + +---+ + | OUTPATIEN | Admitter: | [place] | | | [facility] | | T | SHARI | Family | 8 | | r | | | [facility] | Medicine | 01:18:00 | | Physician | | | | | 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 | | s Hot | | | | | | | [place] | | | | | | | [place] | + + + + +---+ + | Outpatien | Attender: | [facility] | | | [facility] | | t | Jono | Family | 8 | | r | | | [facility] | Medicine | 12:18:00 | | Physician | | | itter: | | 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 | | s Hot | | | [facility] | | | | [place] | | | [facility] | | | | [facility] | + + + + +---+ + + + | PatientName : ANDIE BEAN (67yo, F) ID# [id number]. Date/Time : | | 07/06/2018 11:15AMDOB : 1950ervice Dept. : [facility] | | MedicineProvider : Sagrario SOFIA Primary: [place] | | HEALTHCARE (MEDICARE REPLACEMENT/ADVANTAGE - PPO)Insurance # : | | [id number]/Group # : [id number]: [facility] MEDICAID | | ADMINISTRATION - Member is ineligible. Patient found on payor's files, | | but not covered on date of inquiry. detailsPrescription: ORX - Member | | is eligible. detailsChief ComplaintRight Edema, sinus symptomsPatient's | | Care TeamNurse Practitioner: TRAVIS OMALLEYPrashe memorial hospitalalaina Care Provider: | | Adonis SOFIA'yolande [facility] - | | [place] (ERX): [address] [place] [address] [address], [place] [address], , | | VitalsHt:5 ft 5 in (165.1 cm) 07/06/2018 11:37 | | amWt:160 lbs (72.57 kg) 07/06/2018 11:39 amBMI:26.6 07/06/2018 11:39 | | amBP:110/74 sitting R arm 07/06/2018 11:39 amAllergiesReviewed | | AllergiesPRAVACHOL: Myalgias (muscle pain), Other - | | FatigueMedicationsReviewed MedicationsName: Anoro Ellipta 62.5 mcg-25 | | mcg/actuation powder for inhalation PRNDate: 10/19/17 filledSource: | | PRESCRIPTION SOLUTIONSName: aspirin 325 mg tablet Take 1 tablet(s) | | every day by oral route in the morning.Date: 11/09/17 enteredSource: | | Irais ColulaName: atorvastatin 40 mg tablet Take 1 tablet(s) every day by | | oral route.Date: 06/28/18 filledSource: PRESCRIPTION SOLUTIONSName: | | betamethasone acetate and sodium phos 6 mg/mL suspension for injection | | imDate: 07/06/18 administeredSource: EMIGDIO SOFIAame: | | carvedilol 6.25 mg tablet Take 1 tablet(s) twice a day by oral | | route.Date: 06/01/18 filledSource: PRESCRIPTION SOLUTIONSName: | | cefUROXime axetil 250 mg tablet Take 1 tablet(s) every 12 hours by oral | | route.Date: 07/06/18 prescribedSource: Ellen SOFIA: | | furosemide 40 mg tablet Take 1 tablet(s) twice a day by oral | | route.Date: 06/28/18 filledSource: PRESCRIPTION SOLUTIONSName: | | gabapentin 600 mg tablet Take 2 tablet(s) 3 times a day by oral | | route.Date: 06/01/18 filledSource: PRESCRIPTION SOLUTIONSName: | | HumaLOG KwikPen (U-100) Insulin 100 unit/mL subcutaneous sliding scale | | with 5 units being most injected PRNDate: 06/01/17 filledSource: | | PRESCRIPTION SOLUTIONSName: HYDROcodone 10 mg-acetaminophen 325 mg | | tablet 1/2 -1 po TID prn painDate: 12/28/17 filledSource: | | PRESCRIPTION SOLUTIONSName: Lantus U-100 Insulin 100 unit/mL | | subcutaneous solution 10 units subq dailyDate: 05/10/18 filledSource: | | PRESCRIPTION SOLUTIONSName: ProAir HFA 90 mcg/actuation aerosol | | inhaler Inhale 2 puff(s) every 4 hours by inhalation route.Date: | | 08/27/17 filledSource: PRESCRIPTION SOLUTIONSName: TRUEplus Pen | | Needle 31 gauge x 10/09"Date: 03/03/17 filledSource: PRESCRIPTION | | SOLUTIONSName: Vitamin D2 50,000 unit capsule Take 1 capsule(s) every | | week by oral route.Date: 06/16/18 prescribedSource: JONO RHOADES, | | DOVaccinesReviewed VaccinesVaccine Type: influenza, high dose | | seasonalDate: 04/21/18Amt.: 0.5 mLRoute: IntramuscularSite: Deltoid, | | RightNDC:Lot #: [id number].: Sanofi PasteurExp. Date: 10/23/18Date on | | VIS: 03/02/15VIS Given: 04/21/18Vaccinator: Shari Durham, CNSVaccine | | Type: influenza, high dose seasonalDate: | | 06/02/17mt.:Route:Site:ND:Lot #:Mfr.:Exp. Date:Date on VIS:VIS | | Given:Account Solutions Analyst:Vaccine Type: influenza, injectable, quadrivalentDate: | | 06/02/17mt.:Route:Site: Deltoid, RightNDC:Lot #: [id number].: | | SeqirusExp. Date: 01/23/18Date on VIS:VIS Given: | | 06/02/17Vaccinator:Vaccine Type: pneumococcal conjugate PCV 13Date: | | 11/09/17Amt.: 0.5 mLRoute: IntramuscularSite: Deltoid, RightND:Lot #: | | [id number].: Other manufacturerExp. Date: 09/25/19Date on VIS: | | 05/31/15VIS Given: 11/09/17Vaccinator: Meghan MolnairdVaccine Type: | | pneumococcal polysaccharide RFC12Etun: 05/27/16Amt.:Route:Site:NDC:Lot | | #:Mfr.:Exp. Date:Date on VIS:VIS Given:Account Solutions Analyst:ProblemsReviewed | | Problems* Vitamin D deficiency - Onset: 06/16/2018* Hepatitis C | | antibody test positive - Onset: 12/28/2017* Essential hypertension* | | Postmenopausal osteoporosis* Lumbar radiculopathy* Diabetic neuropathy* | | Low back pain* Cardiomyopathy - Onset: 2017* Stasis dermatitis - | | Onset: 2017* Mixed hyperlipidemia - Onset: 10/03/2017* Tobacco | | user - Onset: 10/03/2017* Type II diabetes mellitus uncontrolled - | | Onset: 10/03/2017* Amputated below knee - Onset: 10/03/2017* Chronic | | kidney disease stage 4 - Onset: 10/03/2017* Chronic obstructive lung | | disease - Onset: 08/27/2017Family HistoryFamily History not reviewed | | (last reviewed 04/21/2018)Brother- Heart disease- all 3 of this- | | Type 2 diabetes mellitusMother- Pulmonary emphysema- Disorder of | | thyroid glandPaternal Grandmother- Malignant tumor of breastSister- | | Malignant tumor of breast- Type 2 diabetes mellitusSocial HistorySocial | | History not reviewed (last reviewed 04/21/2018)Family Medicine and | | Medical Wellness Visit/IPPEAble to Care for Self: NLive alone or with | | others?: with othersAdvance directive: NAre you currently employed?: | | NEducation: 12Occupation: DisabledNumber of children: 3Guns present in | | home: NAlcohol intake: NoneCaffeine intake: OccasionalIllicit drugs: | | NODiet: DiabeticExercise level: NoneHard of hearing or deaf in one or | | both ears?: NLegally blind in one or both eyes?: NSexual orientation: | | HeterosexualSmoke alarm in home: YSmoking Status: Current every day | | smokerSmoker (1 07/28 PPD)Has smoked since age: 25Passive smoke | | exposure?: YChewing tobacco: noneTobacco-years of use: 25Seat belts | | used routinely: YSunscreen used routinely: NIs the patient ambulatory?: | | Yes: limited self-mobility with assistive device(s); generally relies | | on wheeled mobilityTobacco cessation counseling provided?: YSingle or | | multi-level home/work?: single level homeMarital status: | | MarriedSurgical HistorySurgical History not reviewed (last reviewed | | 04/21/2018)* Cholecystectomy* Amputation - 02/25/2016 - LT leg | | amputation above the knee* Colonoscopy - 02/24/2014* Stent - 07/27/2006 | | - cardiac stent* delivery - 07/27/1975GYN HistoryGYN History | | not reviewed (last reviewed 04/21/2018)Most Recent Mammogram: (Notes: | | never had).Obstetric HistoryObstetric History not reviewed (last | | reviewed 04/21/2018)TOTAL: 3FULL: 3PRE:AB. I:AB. | | S:ECTOPICS:MULTIPLE:LIVINPast Medical HistoryPast Medical History | | not reviewed (last reviewed 04/21/2018)Other: Y - Dialysis from 02/2016 | | to 10/2016 with fistula in LT armStent: Y - cardiac stentNotes: Broke | | LT leg on 01/21/2016 and had internal fixation performed but after she | | was discharged, she was admitted back into the hospital 2 weeks later | | with severe infection. Her LT leg (from knee down) amputated 03/03/2016 | | from severe infection while in [facility].HPIEdemaReported | | by patient.Location: RLEQuality: right after she drinks her coffee of a | | morning the swelling begins in her RLE and does not stop until she | | goes to bed at nightSeverity: moderateDuration: constantOnset/Timing: | | started 2 weeks agoContext: prior history of edema; recent travel | | (Vitamin D only)Modifying Factors: nothing gives relief; nothing makes | | it worseAssociated Symptoms: no shortness of breath; no shortness of | | breath during exertion; no nocturia; no significant weight gain; no | | cough; no chest pain; swelling in lower legs only (RT lower leg | | only)SinusitisReported by patient.Location: maxillary; | | frontalOnset/Timing: initially started 3weeks ago; progressively worse | | over last 3daysQuality: throbbing; worseningSeverity: | | moderateAssociated Symptoms: nasal discharge from both nostrils; | | headache forehead; facial pain bilaterally; sinus pain cheek; sore | | throat (intermittently but gargling Scope helps); pain behind the | | eyesROSConstitutional: Constitutional: no significant weight gain or | | loss and no fever.ENMT: Nose: sinus problems.Cardiovascular: | | Cardiovascular: no chest pain; Edema of the right leg.Respiratory: | | Respiratory: no shortness of breath.Neurologic: Neurologic: facial | | weakness has resolved.ROS as noted in the HPIPhysical ExamPatient is a | | 67-year-old female.Constitutional: General Appearance: well-nourished | | and well-developed. Level of Distress: chronically ill. Ambulation: in | | wheelchair.Psychiatric: Mental Status: active and alert.ENMT: Ears: no | | lesions on external ear and TMs clear. Hearing: no hearing loss. Nose: | | sinus tenderness and nasal discharge.Lungs: Auscultation: decreased | | breath sounds.Cardiovascular: Heart Auscultation: RRR and CARLIE | | (09/29).Abdomen: Bowel Sounds: normal. Inspection and Palpation: | | soft.Musculoskeletal:: Extremities: left BKA, RLE with 2+ edema up into | | thigh.Neurologic: Sensation Right Foot: right facial weakness with + | | [place] sign-improved.Foot Exam:: Right Foot: right foot toes were | | examined and digital hair absent right; Marked swelling and loss of | | sensation. Left Foot: amputated.Assessment / Plan1. Acute sinusitis | | -Follow up if no better in 4-5 days or worsening cskxvswG07.90: Acute | | sinusitis, unspecified* cefuroxime axetil 250 mg tablet -Take 1 | | tablet(s) every 12 hours by oral route. Qty: 20 tablet(s) Refills: 0 | | Pharmacy: [facility]* betamethasone acetate | | and sodium phos 6 mg/mL suspension for injection -im Quantity: 6 mg Lot | | #: [id number] Route: Injection Site: Buttock, Right Stock Raiser: BELGIAN | | REGENT Exp Date: 03/25/2020 Administered2. Edema of lower | | drpjtixvvU34.0: Localized edema* LEG AND ANKLE EDEMA: CARE | | INSTRUCTIONS* GRADED SUPPORT HOSE -Use as directed. Qty: 1 Unit | | Refills: 0 Supplier: N/A3. Body mass index 25-29 - ckpqlkmxabK87.26: | | Body mass index (BMI) 26.0-26.9, adult* LEARNING ABOUT HEALTHY WEIGHT4. | | Vitamin D ueuectpdtuY54.9: Vitamin D deficiency, unspecified5. | | Essential hypertension -This care plan was designed by your provider to | | assist in improving your overall health and well being.Assessment: | | HypertensionCondition Status: StableGOALS for better health: achieve | | healthy weight, be more active, lower blood pressure, lower | | cholesterol, stress reduction, and modify eating habits.WEIGHT should | | be monitored to achieve optimal health.EXERCISE is an important factor | | to attaining optimal health.NUTRITION Your provider advises lowering | | salt levels in your diet: limit packaged foods like pretzels, chips, | | pickled foods, cured meats like hawley and salami, canned soups, | | cheeses, and soy sauce. Limiting foods that taste sweet including: | | soda, candy, cake, pie, jam, canned fruit in syrup and cookies, | | limiting foods high in fat like processed meats (sausage), nuts, | | cheeses, butter, and packaged foods with hydrogenated oils. Limit foods | | high in carbs like baked goods, low fat packaged foods, potatoes, | | pizza, and sugary cereals.BLOOD PRESSURE your provider recommends 140 | | or below systolic and 90 or below diastolic as your goal BP. Be sure to | | check your BP with your home blood pressure monitor and record your | | readings in a journal to take to your doctor visits for them to be | | reviewed by your physician.REMINDERS: Perform routine monitoring of | | your blood pressure, regular exercise, take all medications as | | prescribed, and try your best not to miss any doses. Continue to have | | fasting blood work performed every 3-6 months as directed by your | | physician and schedule any necessary follow up appointments. Report any | | new or worsening symptoms to your physician.Follow up: 6 unmdujP66: | | Essential (primary) hypertension6. Postmenopausal osteoporosis -This | | care plan was designed by your provider to assist in improving your | | overall health and well being.Assessment: Postmenopausal | | OsteoporosisCondition Status: StableGOALS for better health: achieve | | healthy weight, be more active, lower blood pressure, lower | | cholesterol, and modify eating habits.WEIGHT should be monitored to | | achieve optimal health.EXERCISE is an important factor to attaining | | optimal health.NUTRITION Your provider advises lowering salt levels in | | your diet: limit packaged foods like pretzels, chips, pickled foods, | | cured meats like hawley and salami, canned soups, cheeses, and soy | | sauce. Limiting foods that taste sweet including: soda, candy, cake, | | pie, jam, canned fruit in syrup and cookies, limiting foods high in fat | | like processed meats (sausage), nuts, cheeses, butter, and packaged | | foods with hydrogenated oils. Limit foods high in carbs like baked | | goods, low fat packaged foods, potatoes, pizza, and sugary | | cereals.BLOOD PRESSURE your provider recommends 140 or below systolic | | and 90 or below diastolic as your goal BP.RECOMMENDATIONS given | | include: continue to have Bone Density test performed every 2 years, | | perform weight-bearing exercise (i.e. walking) 3-5 days a week for at | | least 30 mins at a time, Vitamin D supplementation, avoid alcohol, take | | medications as directed by your physician trying not to miss any | | doses, follow up with physician as directed, and report any new or | | worsening symptoms to your physician as soon as possible.Follow up: 6 | | fedcmvH10.0: Age-related osteoporosis without current pathological | | fracture7. Lumbar radiculopathy -This care plan was designed by your | | provider to assist in improving your overall health and well | | being.Assessment: Lumbar RadiculopathyCondition Status: StableGOALS for | | better health: achieve healthy weight, be more active, improve | | mobility, lower blood pressure, lower cholesterol, and modify eating | | habits.WEIGHT should be monitored to achieve optimal health.EXERCISE is | | an important factor to attaining optimal health.CARDIO at low | | intensity. Some examples of low intensity exercise include: walking, | | swimming, and stretching.NUTRITION Your provider advises staying | | hydrated. The [place] of Medicine determined men need roughly 3 | | liters (about 13 cups) of total beverages per day and women need about | | 2.2 liters (about 9 cups) of total beverages per day. Your provider | | also advises lowering salt levels in your diet: limit packaged foods | | like pretzels, chips, pickled foods, cured meats like hawley and salami, | | canned soups, cheeses, and soy sauce. Limiting foods that taste sweet | | including: soda, candy, cake, pie, jam, canned fruit in syrup and | | cookies, limiting foods high in fat like processed meats (sausage), | | nuts, cheeses, butter, and packaged foods with hydrogenated oils. Limit | | foods high in carbs like baked goods, low fat packaged foods, | | potatoes, pizza, and sugary cereals.BLOOD PRESSURE your provider | | recommends 140 or below systolic and 90 or below diastolic as your goal | | BP.REMINDERS: Alternate heat & ice as needed for pain, rest when | | necessary, try not to exceed your limitations, exercise when possible, | | and take medication as prescribed, try your best not to miss any doses. | | Try to get the recommended amount of sleep which is 7-8 hours per | | night.Follow up: 3 jxsnszS59.16: Radiculopathy, lumbar region8. | | Diabetic neuropathy -This care plan was designed by your provider to | | assist in improving your overall health and well being.Assessment: | | Diabetic NeuropathyCondition Status: StableGOALS for better health: | | achieve healthy weight, be more active, lower blood pressure, lower | | cholesterol, and modify eating habits. Many things can cause numbness | | or tingling. Swelling may put pressure on a nerve. This could cause you | | to lose feeling or have a oosm-dsv-lmvwbfp sensation on part of your | | body. Nerves may be damaged from trauma, toxins, or diseases, such as | | diabetes or multiple sclerosis (MS). Sometimes, though, the cause is | | not clear. If there is no clear reason for your symptoms, and you are | | not having any other symptoms, your doctor may suggest watching and | | waiting for a while to see if the numbness or tingling goes away on its | | own. Your doctor may want you to have blood or nerve tests to find the | | cause of your symptoms.WEIGHT should be monitored to achieve optimal | | health.EXERCISE is an important factor to attaining optimal | | health.NUTRITION Your provider advises lowering salt levels in your | | diet: limit packaged foods like pretzels, chips, pickled foods, cured | | meats like hawley and salami, canned soups, cheeses, and soy sauce. | | Limiting foods that taste sweet including: soda, candy, cake, pie, jam, | | canned fruit in syrup and cookies, limiting foods high in fat like | | processed meats (sausage), nuts, cheeses, butter, and packaged foods | | with hydrogenated oils. Limit foods high in carbs like backed goods, | | low fat packaged foods, potatoes, pizza, and sugary cereals.REMINDERS: | | Follow-up care is a fung part of your treatment and safety. Be sure to | | make and go to all appointments, and call your doctor if you are having | | problems. It's also a good idea to know your test results and keep a | | list of the medicines you take.If your doctor prescribes medicine, take | | it exactly as directed. Call your doctor if you think you are having a | | problem with your medicine. If you have any swelling, put ice or a | | cold pack on the area for 10 to 20 minutes at a time. Put a thin cloth | | between the ice and your skin. Continue to have fasting blood work | | performed every 3-6 months as directed by your physician.Follow up: 6 | | adpfjnK73.40: Type 2 diabetes mellitus with diabetic neuropathy, | | unspecified9. Low back pain -This care plan was designed by your | | provider to assist in improving your overall health and well | | being.Assessment: Chronic Low Back PainCondition Status: StableGOALS | | for better health: achieve healthy weight, be more active, improve | | mobility, lower blood pressure, lower cholesterol, and modify eating | | habits.WEIGHT should be monitored to achieve optimal health.EXERCISE is | | an important factor to attaining optimal health.CARDIO at low | | intensity. Some examples of low intensity exercise include: walking, | | swimming, and stretching.NUTRITION Your provider advises staying | | hydrated. The [place] of Medicine determined men need roughly 3 | | liters (about 13 cups) of total beverages per day and women need about | | 2.2 liters (about 9 cups) of total beverages per day. Your provider | | also advises lowering salt levels in your diet: limit packaged foods | | like pretzels, chips, pickled foods, cured meats like hawley and salami, | | canned soups, cheeses, and soy sauce. Limiting foods that taste sweet | | including: soda, candy, cake, pie, jam, canned fruit in syrup and | | cookies, limiting foods high in fat like processed meats (sausage), | | nuts, cheeses, butter, and packaged foods with hydrogenated oils. Limit | | foods high in carbs like baked goods, low fat packaged foods, | | potatoes, pizza, and sugary cereals.BLOOD PRESSURE your provider | | recommends 140 or below systolic and 90 or below diastolic as your goal | | BP.REMINDERS: Alternate heat & ice as needed for pain, rest when | | necessary, try not to exceed your limitations, exercise when possible, | | and take medication as prescribed, try your best not to miss any doses. | | Try to get the recommended amount of sleep which is 7-8 hours per | | night.Follow up: 3 khqbdnF09.5: Low back pain* BACK CARE AND PREVENTING | | INJURIES: CARE INSTRUCTIONS* GETTING BACK TO NORMAL AFTER LOW BACK | | PAIN: CARE INSTRUCTIONS* LEARNING ABOUT RELIEF FOR BACK PAIN10. | | Cardiomyopathy -I42.9: Cardiomyopathy, acueckooaaa32. Stasis | | iptuakgkcdM70.2: Venous insufficiency (chronic) (peripheral)12. Mixed | | hyperlipidemia -E78.2: Mixed ughkolohcvhlns43. Tobacco user -Continues | | to proihT14.0: Tobacco use* STOPPING SMOKING: CARE EPLWEGOVWETD78. Type | | II diabetes mellitus uncontrolled -E11.65: Type 2 diabetes mellitus | | with pbsltbdjsouka74. Amputated below knee -This care plan was designed | | by your provider to assist in improving your overall health and well | | being.Assessment: Amputated Below kneeCondition Status: StableGOALS for | | better health: achieve healthy weight, be more active, lower blood | | pressure, lower cholesterol, and modify eating habits.WEIGHT should be | | monitored to achieve optimal health.EXERCISE is an important factor to | | attaining optimal health.NUTRITION Your provider advises lowering salt | | levels in your diet: limit packaged foods like pretzels, chips, pickled | | foods, cured meats like hawley and salami, canned soups, cheeses, and | | soy sauce. Limiting foods that taste sweet including: soda, candy, | | cake, pie, jam, canned fruit in syrup and cookies, limiting foods high | | in fat like processed meats (sausage), nuts, cheeses, butter, and | | packaged foods with hydrogenated oils. Limit foods high in carbs like | | backed goods, low fat packaged foods, potatoes, pizza, and sugary | | cereals.REMINDERS: Continue to have fasting blood work performed every | | 3-6 months as directed by your physician. Take your medications as | | directed by your physician trying your best not to miss any doses and | | schedule any necessary follow up appointments.Follow up: 6 | | yhwvxuV50.519: Acquired absence of unspecified leg below knee16. | | Chronic kidney disease stage 4 -N18.4: Chronic kidney disease, stage 4 | | (severe)17. Chronic obstructive lung disease -This care plan was | | designed by your provider to assist in improving your overall health | | and well being.Assessment: Chronic Obstructive Pulmonary Disease | | (COPD)Condition Status: StableGOALS for better health: achieve healthy | | weight, be more active, lower blood pressure, lower cholesterol, stress | | reduction, modify eating habits, and if you smoke, your physician | | highly advises you to QUIT SMOKING. If you need extra help with smoking | | cessation, talk to your physician regarding your options. COPD puts a | | heavy strain on your body which makes you more vulnerable to infections | | so it is of the utmost importance to stay current with your | | immunizations such as your yearly flu shot, pneumonia (Pneumo 23 & | | Prevnar 13), and shingles (Shingrix).WEIGHT should be monitored to | | achieve optimal health.EXERCISE is an important factor in obtaining | | your optimal health.NUTRITION Your provider advises a low sodium diet | | so it is very important to lower the salt levels in your diet. Limit | | packaged foods like pretzels, chips, pickled foods, cured meats like | | hawley and salami, canned soups, cheeses, and soy sauce. Excess sugar is | | not good for your overall health. Limit foods that taste sweet | | including: soda, candy, cake, pie, jam, canned fruit in syrup and | | cookies, limiting foods high in fat like processed meats (sausage), | | nuts, cheeses, butter, and packaged foods with hydrogenated oils. It is | | also very important to limit foods high in carbs like baked goods, low | | fat packaged foods, potatoes, pizza, and sugary cereals to obtain your | | optimal health.BLOOD PRESSURE your provider recommends 140 or below | | systolic and 90 or below diastolic as your goal BP. Be sure to check | | your BP with your home blood pressure monitor and record your readings | | in a journal to take to your doctor visits for them to be reviewed by | | your physician.REMINDERS: Try your best to avoid cold, hot, or humid | | weather and avoid breathing dust, fumes, perfumes/cologne and smoke | | because your COPD symptoms may be worsened (exacerbated). Exercise on a | | regular basis when your physically able to, take all your medication | | (including your inhalers and nebulizer treatments) as prescribed by | | your physician, and try your best not to miss any doses. Continue to | | have fasting blood work performed every 3-6 months as directed by your | | physician and schedule any necessary follow up appointments. Report any | | new or worsening symptoms to your physician.Follow up: 6 qvhzwtP37.9: | | Chronic obstructive pulmonary disease, unspecified* CHRONIC OBSTRUCTIVE | | PULMONARY DISEASE (COPD): CARE INSTRUCTIONS* LEARNING ABOUT COPD AND | | HOW TO PREVENT LUNG INFECTIONSReturn to OfficeNone recorded.Encounter | | Sign-OffEncounter signed-off by JONO RHOADES DO, 07/09/2018. | + + + + + + +---+ + | OUTPATIEN | Admitter: | [facility] | | | National | | T | DR Thais Weaver | 8 | | Shirley | | | JAZZMINE | Cardiolog | 03:46:00 | | Medical | | | [facility] | y | 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 | | Center | | | | Associate | | | Clinics | | | | s | | | | + + + + +---+ + | OUTPATIEN | Admitter: | [facility] | | | National | | T | DR | [facility] | 8 | | Park | | | JAZZMINE | Cardiolog | 12:36:00 | | Medical | | | W[facility] | y | 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 | | Center | | | | Associate | | | Clinics | | | | s | | | | + + + + +---+ + | OUTPATIEN | Admitter: | [facility] | | | National | | T | DR | [facility]an | 8 | | Park | | | JAZZMINE | Cardiolog | 1236:00 | | Medical | | | W[facility] | y | 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 | | Center | | | | Associate | | | Clinics | | | | s | | | | + + + + +---+ + | OUTPATIEN | Admitter: | [facility] | | | National | | T | DR | Regan | 8 | | Park | | | JAZZMINE | Cardiolog | 12:11:00 | | Medical | | | W[facility] | y | 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 | | Center | | | | Associate | | | Clinics | | | | s | | | | + + + + +---+ + | OUTPATIEN | Admitter: | [facility] | | | National | | T | DR | Meg | 8 | | Park | | | JAZZMINE | Cardiolog | 12::00 | | Medical | | | [facility] | y | 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 | | Center | | | | Associate | | | Clinics | | | | s | | | | + + + + +---+ + | OUTPATIEN | Admitter: | [facility] | | | National | | T | DR | Meg | 8 | | Park | | | JAZZMINE | Cardiolog | 12:08:00 | | Medical | | | [facility] | y | 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 | | Center | | | | Associate | | | Clinics | | | | s | | | | + + + + +---+ + | Outpatien | Attender: | [facility] | | | National | | t | | Meg | 8 | | Park | | | JAZZMINE | Cardiolog | 11:09:00 | | Medical | | | ST | y | 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 - | | Center | | | JOHNAdmit | Associate | | | Clinics | | | ter: | s | 8 | | | | | JAZZMINE | | 11:36:00 | | | | | [facility] | | 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 | | | + + + + +---+ + + + | PatientName : ANDIE BEAN (67yo, F) ID# [id number]. Date/Time : | | 06/29/2018 10:15AMDOB : 1950ervice Dept. : [facility] | | Cardiology AssociatesProvider : JAZZMINE HARVEY MDInsuranceMed | | Primary: [facility] (MEDICARE | | REPLACEMENT/ADVANTAGE - PPO)Insurance # : [id number]/Group # : | | [id number] : JONO RHOADESReferrdaniel Provider Name : JF, | | JONOEmployer Name : UNKNOWNPrescription: ORX - Member is eligible. | | detailsChief ComplaintFollowup: EdemaPatient's Care TeamPrimary Care | | Provider (Primary Insurance): JONO RHOADES: VALERIE, [address] | | [facility], [place] [address], , Fax [phone] | | [phone] Provider (Primary Insurance): JONO RHOADES: | | [facility], [address], [place] [address], Ph [phone] | | [phone], Patient's [facility] | | PHARMACY - [place] (ERX): [address] [place] [address] [address], [place] [address], Ph | | , VitalsHt:5 ft 4.5 in 06/29/2018 10:11 | | amWt:141 lbs 06/29/2018 10:13 amBMI:23.8 06/29/2018 10:13 amBP:116/62 | | sitting 06/29/2018 10:14 amPulse:76 bpm 06/29/2018 10:14 | | amAllergiesReviewed AllergiesNKDAMedicationsReviewed MedicationsName: | | atorvastatinDate: 11/02/17 enteredSource: Emeka HuddlestonName: Coreg 6.25mg | | bidDate: 11/02/17 enteredSource: Emeka HuddlestonName: gabapentin 600 mg | | tablet Take 2 tablet(s) 3 times a day by oral route.Date: 11/02/17 | | enteredSource: Emeka HuddlestonName: HYDROcodone 10 mg-acetaminophen 325 mg | | tablet Take 1 tablet(s) as needed by oral route.Date: 11/02/17 | | enteredSource: Emeka HuddlestonName: Lasix 10 bidDate: 11/02/17 | | enteredSource: Emeka HuddlestonProblemsReviewed Problems* Edema - Onset: | | 11/02/2017Family HistoryReviewed Family Historybrothers and | | sisterSocial HistoryReviewed Social HistorySmoking Status: Current | | every day smokerSmoker (1 /2 PPD)Surgical HistoryReviewed Surgical | | HistoryPast Medical HistoryReviewed Past Medical HistoryAngioplasty | | (balloon): YCardiomyopathy: YHeart Disease: YHeart cath: YHeart stents: | | YHigh Blood Pressure: YHigh Cholesterol: YDocuments for | | DiscussionN/AScreeningNone recorded.HPINone recorded.ROSPatient reports | | no fever, no night sweats, no significant weight gain, no significant | | weight loss, and no exercise intolerance. She reports no dry eyes, no | | irritation, and no vision change. She reports no difficulty hearing and | | no ear pain. She reports no frequent nosebleeds and no nose/sinus | | problems. She reports no sore throat, no bleeding gums, no snoring, no | | dry mouth, no mouth ulcers, no oral abnormalities, and no teeth | | problems. She reports no jugular vein distension and no swollen glands. | | She reports no chest pain, no arm pain on exertion, no shortness of | | breath when walking, no shortness of breath when lying down, no | | palpitations, and no known heart murmur. She reports no cough, no | | wheezing, no shortness of breath, and no coughing up blood. She reports | | no abdominal pain, no vomiting, normal appetite, no diarrhea, not | | vomiting blood, no nausea, and no constipation. She reports no | | incontinence, no difficulty urinating, no hematuria, and no increased | | frequency. She reports nomuscle aches, no muscle weakness, no | | arthralgias/joint pain, no back pain, and no swelling in the | | extremities. She reports no abnormal mole, no jaundice, and no rashes. | | She reports no loss of consciousness, no weakness, no numbness, no | | seizures, no dizziness, and no headaches. She reports no depression, no | | sleep disturbances, feeling safe in relationship, and no alcohol | | abuse. She reports no fatigue. She reports no swollen glands and no | | bruising. She reports no runny nose, no sinus pressure, no itching, no | | hives, and no frequent sneezing.ROS as noted in the HPIPhysical | | ExamPatient is a 67-year-old female.Constitutional: General Appearance: | | well-nourished, well-developed, and appears stated age. Level of | | Distress: comfortable.Psychiatric: Mental Status: alert and normal | | affect. Orientation: oriented to time, place, and person.Eyes: Lids and | | Conjunctivae: no discharge, pallor, xanthelasma, or arcus senilis and | | non-injected and anicteric.ENMT: Lips, Teeth, and Gums: normal | | dentition. Oropharynx: no cyanosis or pallor.Neck: Carotid Arteries: no | | bruits or thrills and bilateral normal upstroke. Jugular Veins: normal | | jugular venous pressure. Cervical Lymph Nodes: non tender or not | | enlarged. Thyroid: not enlarged, non tender, or no nodules.Lungs: | | Respiratory Effort: unlabored. Chest Exam: no thoracic deformity or | | chest wall tenderness and normal curvature. Percussion: resonant. | | Auscultation: no wheezing, rales, or rhonchi and clear.Cardiovascular: | | Precordial Exam: no heaves or precordial thrills and non displaced | | focal PMI. Rate And Rhythm: regular. Heart Sounds: no rub, gallop, or | | click and normal S1 and physiologically split S2. Systolic Murmur: not | | heard. Diastolic Murmur: not heard. Extremities: no cyanosis or | | edema.Peripheral Pulses: Pulses: full and equal in all extremities | | except if noted and no bruits appreciated.Abdomen: Inspection and | | Palpation: non distended or tender, no bruit or masses, and soft and | | normal aorta. Liver: non tender or no hepatomegaly. Spleen: non tender | | or no splenomegaly.Musculoskeletal: Inspection: no joint tenderness or | | swelling and no erythema.Neurologic: Gait: normal gait. Motor: normal | | strength and tone.Skin: Inspection and Palpation: warm and dry. Nails: | | no clubbing.Assessment / PlanSee additional documentation for this date | | of service-1. OrketR74.9: Edema, unspecified* LEG AND ANKLE EDEMA: | | CARE INSTRUCTIONS2. Coronary arteriosclerosis in [place] qkheasD36.10: | | Atherosclerotic heart disease of [place] coronary artery without angina | | pectoris3. Essential unjfutbdrkshV18: Essential (primary) hypertension* | | HIGH BLOOD PRESSURE: CARE INSTRUCTIONS* LEARNING ABOUT HIGH BLOOD | | PRESSURE4. Chronic obstructive lung qhstfzsY37.9: Chronic obstructive | | pulmonary disease, unspecified* CHRONIC OBSTRUCTIVE PULMONARY DISEASE | | (COPD): CARE INSTRUCTIONS* LEARNING ABOUT COPD AND HOW TO PREVENT LUNG | | INFECTIONS5. Peripheral vascular zwyyzdgI16.9: Peripheral vascular | | disease, unspecified* PERIPHERAL ARTERIAL DISEASE OF THE LEG: CARE | | INSTRUCTIONSReturn to Office* ECHO-CAROTID for Test 30 at [facility] | [facility] on 01/04/2019 at 10:00 AM* JAZZMINE NAVARRETE | | MD VIRGINIE for Office Visit 15 at [facility] | | on 01/04/2019 at 11:00 AMEncounter Sign-OffEncounter signed-off by | | JAZZMINE HARVEY MD, 06/29/2018. | + + + + + + +---+ + | OUTPATIEN | Attender: | [facility] | | | [facility] | | T | Jono | Family | 8 | | r | | | Jf | Medicine | 07:53:00 | | Physician | | | | | 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 | | s Hot | | | | | | | [place] | | | | | | | [place] | + + + + +---+ + | OUTPATIEN | Attender: | [place] | | | [facility] | | T | Jono | Family | 8 | | r | | | Jf | Medicine | 07:53:00 | | Physician | | | | | 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 | | s Hot | | | | | | | [place] | | | | | | | [place] | + + + + +---+ + | OUTPATIEN | Admitter: | [facility] | | | [facility] | | T | SHARI | Family | 8 | | r | | | [place] | [facility] | 03:57:00 | | Physician | | | | | 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 | | s Hot | | | | | | | [place] | | | | | | | [place] | + + + + +---+ + | OUTPATIEN | Admitter: | [place] | | | [facility] | | T | SHARI | Family | 8 | | r | | | [place] | Medicine | 03:56:00 | | Physician | | | | | 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 | | s Hot | | | | | | | [place] | | | | | | | [place] | + + + + +---+ + | OUTPATIEN | Admitter: | [facility] | | | National | | T | DR | Meg | 8 | | Park | | | JAZZMINE | Cardiolog | :: | | Medical | | | [facility] | y | 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 | | Center | | | | Associate | | | Clinics | | | | s | | | | + + + + +---+ + | OUTPATIEN | Admitter: | [place] | | | [facility] | | T | SHARI | Family | 8 | | r | | | [place] | [facility] | 04:54:00 | | Physician | | | | | 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 | | s Hot | | | | | | | [place] | | | | | | | [place] | + + + + +---+ + | OUTPATIEN | Attender: | [place] | | | [facility] | | T | Jono | Family | 8 | | r | | | Jf | Medicine | 06:56:00 | | Physician | | | | | 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 | | s Hot | | | | | | | [place] | | | | | | | [place] | + + + + +---+ + | OUTPATIEN | Attender: | [facility] | | | [facility] | | T | Jono | Family | 8 | | r | | | Jf | Medicine | 06:56:00 | | Physician | | | | | 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 | | s Hot | | | | | | | [place] | | | | | | | [place] | + + + + +---+ + | OUTPATIEN | Admitter: | [place] | | | [facility] | | T | SHARI | Family | 8 | | r | | | AALIYAH | Medicine | :31: | | Physician | | | | | 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 | | s Hot | | | | | | | [place] | | | | | | | [place] | + + + + +---+ + | OUTPATIEN | Admitter: | [place] | | | [facility] | | T | SHARI | Family | 8 | | r | | | AALIYAH | Medicine | :31: | | Physician | | | | | 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 | | s Hot | | | | | | | [place] | | | | | | | [place] | + + + + +---+ + | OUTPATIEN | Attender: | [place] | | | [facility] | | T | Jono | | 8 | | r | | | Jf | Medicine | 10:30:51 | | Physician | | | | | 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 - | | s Hot | | | | | | | [place] | | | | | 8 | | [place] | | | | | 03:57:42 | | | | | | | 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 | | | + + + + +---+ + | Outpatien | Attender: | [facility] | | | [facility] | | t | OWEN | | 8 | | r | | | | Medicine | 09:31:00 | | Physician | | | LABAdmitt | | 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 | | s Hot | | | er: SHARI | | | | [place] | | | AALIYAH | | | | Sadaf | + + + + +---+ + + + | PatientName : ANDIE BEAN (67yo, F) ID# [id number]. Date/Time : | | 06/15/2018 08:30AMDOB : [address] [place] [address] Dept. : [facility] | | MedicineProvider : Burke SOFIAMed Primary: [employer] | | [employer] (MEDICARE REPLACEMENT/ADVANTAGE - PPO)Insurance # : | | [id number]/Group # : [id number]: ORX - Member is eligible. | | detailsChief ComplaintLabPatient's Care TeamNurse Practitioner: SHARI | | [place], [facility] Care Provider: Neris SOFIAtient's | | [facility]Y - [place] ([facility]): [address] [place] [address] [address], | | [place] [address], , VitalsNone | | recorded.AllergiesAllergies not reviewed (last reviewed | | 04/21/2018)PRAVACHOL: Myalgias (muscle pain), Other - | | FatigueMedicationsMedications not reviewed (last reviewed | | 04/21/2018)Name: Anoro Ellipta 62.5 mcg-25 mcg/actuation powder for | | inhalation PRNDate: 10/19/17 filledSource: PRESCRIPTION | | SOLUTIONSName: aspirin 325 mg tablet Take 1 tablet(s) every day by oral | | route in the morning.Date: 11/09/17 enteredSource: Irais ColulaName: | | atorvastatin 40 mg tablet Take 1 tablet(s) every day by oral | | route.Date: 04/21/18 enteredSource: Frances VaughnName: carvedilol 6.25 | | mg tablet Take 1 tablet(s) twice a day by oral route.Date: 06/01/18 | | filledSource: PRESCRIPTION SOLUTIONSName: furosemide 40 mg tablet Take | | 1 tablet(s) twice a day by oral route.Date: 05/31/18 filledSource: | | PRESCRIPTION SOLUTIONSName: gabapentin 600 mg tablet Take 2 tablet(s) 3 | | times a day by oral route.Date: 06/01/18 filledSource: PRESCRIPTION | | SOLUTIONSName: HumaLOG KwikPen (U-100) Insulin 100 unit/mL subcutaneous | | sliding scale with 5 units being most injected PRNDate: 06/01/17 | | filledSource: PRESCRIPTION SOLUTIONSName: HYDROcodone 10 | | mg-acetaminophen 325 mg tablet 1/2 -1 po TID prn painDate: 12/28/17 | | filledSource: PRESCRIPTION SOLUTIONSName: Lantus U-100 Insulin 100 | | unit/mL subcutaneous solution 10 units subq dailyDate: 05/10/18 | | filledSource: PRESCRIPTION SOLUTIONSName: ProAir HFA 90 mcg/actuation | | aerosol inhaler Inhale 2 puff(s) every 4 hours by inhalation | | route.Date: 08/27/17 filledSource: PRESCRIPTION SOLUTIONSName: silver | | sulfadiazine 1 % topical creamDate: 08/13/17 filledSource: | | PRESCRIPTION SOLUTIONSName: TRUEplus Pen Needle 31 gauge x 10/09"Date: | | 03/03/17 filledSource: PRESCRIPTION SOLUTIONSName: Vitamin D2 50,000 | | unit capsule Take 1 capsule(s) every week by oral route.Date: 06/16/18 | | prescribedSource: JONO RHOADES, DOVaccinesVaccines not reviewed | | (last reviewed 04/21/2018)Vaccine Type: influenza, high dose | | seasonalDate: 04/21/18Amt.: 0.5 mLRoute: IntramuscularSite: Deltoid, | | RightLot #: [id number].: Sanofi PasteurExp. Date: 10/23/18Date on VIS: | | 03/02/15VIS Given: 04/21/18Vaccinator: TRAVIS OmalleyVaccine Type: | | influenza, high dose seasonalDate: 06/02/17mt.:Route:Site:Lot | | #:Mfr.:Exp. Date:Date on VIS:VIS Given:Account Solutions Analyst:Vaccine Type: | | influenza, injectable, quadrivalentDate: 06/02/17mt.:Route:Site: | | Deltoid, RightLot #: [id number].: SeqirusExp. Date: 01/23/18Date on | | VIS:VIS Given: 06/02/17Vaccinator:Vaccine Type: pneumococcal conjugate | | PCV 13Date: 11/09/17Amt.: 0.5 mLRoute: IntramuscularSite: Deltoid, | | RightLot #: [id number].: Other manufacturerExp. Date: 09/25/19Date on | | VIS: 05/31/15VIS Given: 11/09/17Vaccinator: Meghan CrystalbriseidaVacclakia | | Type: pneumococcal polysaccharide [id number]: | | 05/27/16Amt.:Route:Site:Lot #:Mfr.:Exp. Date:Date on VIS:VIS | | Given:Account Solutions Analyst:ProblemsReviewed Problems* Vitamin D deficiency - | | Onset: 06/16/2018* Hepatitis C antibody test positive - Onset: | | 12/28/2017* Essential hypertension* Postmenopausal osteoporosis* Lumbar | | radiculopathy* Diabetic neuropathy* Low back pain* Cardiomyopathy - | | Onset: 2017* Stasis dermatitis - Onset: 2017* Mixed | | hyperlipidemia - Onset: 10/03/2017* Tobacco user - Onset: 10/03/2017* | | Type II diabetes mellitus uncontrolled - Onset: 10/03/2017* Amputated | | below knee - Onset: 10/03/2017* Chronic kidney disease stage 4 - Onset: | | 10/03/2017* Chronic obstructive lung disease - Onset: 08/27/2017Family | | HistoryFamily History not reviewed (last reviewed 04/21/2018)Brother- | | Heart disease- all 3 of this- Type 2 diabetes mellitusMother- | | Pulmonary emphysema- Disorder of thyroid glandPaternal Grandmother- | | Malignant tumor of breastSister- Malignant tumor of breast- Type 2 | | diabetes mellitusSocial HistorySocial History not reviewed (last | | reviewed 04/21/2018)Family Medicine and Medical Wellness Visit/IPPEAble | | to Care for Self: NLive alone or with others?: with othersAdvance | | directive: NAre you currently employed?: NEducation: 12Occupation: | | DisabledNumber of children: 3Guns present in home: NAlcohol intake: | | NoneCaffeine intake: OccasionalIllicit drugs: NODiet: DiabeticExercise | | level: NoneHard of hearing or deaf in one or both ears?: NLegally blind | | in one or both eyes?: NSexual orientation: HeterosexualSmoke alarm in | | home: YSmoking Status: Current every day smokerSmoker (1 07/28 PPD)Has | | smoked since age: 25Passive smoke exposure?: YChewing tobacco: | | noneTobacco-years of use: 25Seat belts used routinely: YSunscreen used | | routinely: NIs the patient ambulatory?: Yes: limited self-mobility with | | assistive device(s); generally relies on wheeled mobilityTobacco | | cessation counseling provided?: YSingle or multi-level home/work?: | | single level homeMarital status: MarriedSurgical HistorySurgical | | History not reviewed (last reviewed 04/21/2018)* Cholecystectomy* | | Amputation - 02/25/2016 - LT leg amputation above the knee* Colonoscopy | | - 02/24/2014* Stent - 07/27/2006 - cardiac stent* delivery - | | 07/27/1975GYN HistoryGYN History not reviewed (last reviewed | | 04/21/2018)Most Recent Mammogram: (Notes: never had).Obstetric | | HistoryObstetric History not reviewed (last reviewed 04/21/2018)TOTAL: | | 3FULL: 3PRE:AB. I:AB. S:ECTOPICS:MULTIPLE:LIVINPast Medical | | HistoryPast Medical History not reviewed (last reviewed | | 04/21/2018)Other: Y - Dialysis from 02/2016 to 10/2016 with fistula in | | LT armStent: Y - cardiac stentNotes: Broke LT leg on 01/21/2016 and had | | internal fixation performed but after she was discharged, she was | | admitted back into the hospital 2 weeks later with severe infection. | | Her LT leg (from knee down) amputated 03/03/2016 from severe infection | | while in [facility].Assessment / Plan1. Type II diabetes | | mellitus uncontrolled -E11.65: Type 2 diabetes mellitus with | | hyperglycemia* HBA1C (HEMOGLOBIN A1C), BLOOD* CBC* | | MICROALBUMIN:CREATININE RATIO, URINE2. Chronic kidney disease stage 4 | | -N18.4: Chronic kidney disease, stage 4 (severe)* CMP WITH ESTIMATED | | GFR,CALCULATED -Specimen source: Blood venous3. Mixed hyperlipidemia | | -E78.2: Mixed hyperlipidemia* LIPID PANEL, BLOOD4. Deficiency of | | vitamin D3E55.9: Vitamin D deficiency, unspecified* VITAMIN D (25-OH) | | -Specimen source: Blood gsfijgEES0L (HEMOGLOBIN A1C), BLOOD* Result:- | | HGB A1C: 7.4%CBC* Results:- WBC: 7.1k/ul- RBC: 3.77m/ul- HB.6g/dl- | | HCT: 35.9%- MCV: 95.2fl- MCH: 30.8pg- MCHC: 32.3g/dl- PLT: 179k/ul- | | LYM%: 24.8%- MXD%: 6.8%- NEUT%: 68.4%- LYM#: 1.8k/ul- MXD#: 0.5k/ul- | | NEUT#: 4.8k/ul- RDW-SD: 51.3fl- RDW-CV: 14.6%- MPV: | | 10.9flMICROALBUMIN:CREATININE RATIO, URINE* Results:- MICROALBUMIN: | | 150mg/l- CREATININE: 100mg/dl- A/C RATIO: >300LIPID PANEL, BLOOD* | | Results:- TC: <100mg/dl- HDL: 32mg/dl- TRmg/dl- LDL: N/Amg/dl- | | NON-HDL: N/Amg/dl- TC/HDL: N/AReturn to OfficeNone recorded.Encounter | | Sign-OffEncounter signed-off by JONO RHOADES DO, 06/18/2018. | + + + + + + +---+ + | OUTPATIEN | Admitter: | Owen | | | [facility] | | T | SHARI | Family | 8 | | r | | | [facility] | Medicine | 09:49:00 | | Physician | | | | | AM CDT | | s Hot | | | | | | | [facility] | | | | | | | Sadaf | + + + + +---+ + | OUTPATIEN | Admitter: | [facility] | | | National | | T | | Meg | 8 | | Shirley | | | JAZZMINE | Cardiolog | 07: | | Medical | | | [facility] | y | AM CDT | | Center | | | | Associate | | | Clinics | | | | s | | | | + + + + +---+ + | OUTPATIEN | Admitter: | [place] | | | [facility] | | T | SHARI | Family | 8 | | r | | | [facility] | Medicine | 18: | | Physician | | | | | PM CDT | | s Hot | | | | | | | [place] | | | | | | | [place] | + + + + +---+ + | OUTPATIEN | Admitter: | [facility] | | | National | | T | DR | Meg | 8 | | Shirley | | | JAZZMINE | Cardiolog | 05:47:00 | | Medical | | | [facility] | y | PM CDT | | Center | | | | Associate | | | Clinics | | | | s | | | | + + + + +---+ + | OUTPATIEN | Admitter: | Owen | | | [facility] | | T | SHARI | Family | 8 | | r | | | AALIYAH | Medicine | 04:: | | Physician | | | | | AM CDT | | s Hot | | | | | | | [place] | | | | | | | [place] | + + + + +---+ + | OUTPATIEN | Admitter: | Owen | | | [facility] | | T | SHARI | Family | 8 | | r | | | [facility] | Medicine | :: | | Physician | | | | | PM CDT | | s Hot | | | | | | | [place] | | | | | | | [place] | + + + + +---+ + | OUTPATIEN | Admitter: | Owen | | | [facility] | | T | SHARI | Family | 8 | | r | | | AALIYAH | Medicine | :: | | Physician | | | | | PM CDT | | s Hot | | | | | | | [place] | | | | | | | [place] | + + + + +---+ + | OUTPATIEN | Admitter: | [place] | | | [facility] | | T | SHARI | Family | 8 | | r | | | [facility] | Medicine | :21:00 | | Physician | | | | | PM CDT | | s Hot | | | | | | | [place] | | | | | | | [facility] | + + + + +---+ + | OUTPATIEN | Admitter: | Owen | | | [facility] | | T | SHARI | Family | 8 | | r | | | [facility] [place] | [facility] | :20:00 | | Physician | | | | | PM CDT | | s Hot | | | | | | | [place] | | | | | | | Sadaf | + + + + +---+ + | OUTPATIEN | Admitter: | Owen | | | [facility] | | T | SHARI | Family | 8 | | r | | | [place] | [facility] | :19:00 | | Physician | | | | | PM CDT | | s Hot | | | | | | | [place] | | | | | | | [facility] | + + + + +---+ + | Outpatien | Attender: | Owen | | | [facility] | | t | SHARI | Family | 8 | | r | | | SHERI | Medicine | 12:20:00 | | Physician | | | dmitter: | | PM CDT - | | s Hot | | | SHARI | | | | Meg | | | AALIYAH | | 8 | | Sadaf | | | | | 01:17:00 | | | | | | | PM CDT | | | + + + + +---+ + + + | PatientName : DAVID ANDIE (67yo, F) ID# [id number]. Date/Time : | | 04/21/2018 11:30AMDOB : 1950ervice Dept. : [facility] | | MedicineProvider : TRAVIS OMALLEYInsuranceMed Primary: UNITED | | HEALTHCARE (MEDICARE REPLACEMENT/ADVANTAGE - PPO)Insurance # : | | [id number]/Group # : [id number]: ORX - Member is eligible. | | detailsChief ComplaintMedicare annual wellness visit- [facility] | | WellnessPatient's Care TeamNurse Practitioner: SHARI DURHAM, | | CNSPrimary Care Provider: Adonis [facility]acies[facility] | | [facility] ([facility]): [address] [place] [address] [address], [place] | | [id number], , VitalsHt:5 ft 5 in (165.1 | | cm) 04/21/2018 11:35 amWt:145 lbs (65.77 kg) 04/21/2018 11:35 | | amBMI:24.1 04/21/2018 11:35 amBP:110/72 sitting R arm 04/21/2018 11:38 | | wiX8Fwi:97% Room Air at Rest 04/21/2018 11:38 amPulse:86 bpm 04/21/2018 | | 11:38 amT:97.3 F? ear (36.28 C) 04/21/2018 11:38 amAllergiesReviewed | | AllergiesPRAVACHOL: Myalgias (muscle pain), Other - | | FatigueMedicationsReviewed MedicationsName: Anoro Ellipta 62.5 mcg-25 | | mcg/actuation powder for inhalation PRNDate: 10/19/17 filledSource: | | PRESCRIPTION SOLUTIONSName: aspirin 325 mg tablet Take 1 tablet(s) | | every day by oral route in the morning.Date: 11/09/17 enteredSource: | | Irais ColulaName: atorvastatin 40 mg tablet Take 1 tablet(s) every day by | | oral route.Date: 04/21/18 enteredSource: Frances VaughnName: carvedilol | | 6.25 mg tablet Take 1 tablet(s) twice a day by oral route.Date: | | 04/05/18 filledSource: PRESCRIPTION SOLUTIONSName: furosemide 40 mg | | tablet Take 1 tablet(s) twice a day by oral route.Date: 04/15/18 | | filledSource: PRESCRIPTION SOLUTIONSName: gabapentin 600 mg tablet Take | | 2 tablet(s) 3 times a day by oral route.Date: 04/12/18 filledSource: | | PRESCRIPTION SOLUTIONSName: HumaLOG KwikPen (U-100) Insulin 100 | | unit/mL subcutaneous sliding scale with 5 units being most injected | | PRNDate: 06/01/17 filledSource: PRESCRIPTION SOLUTIONSName: | | HYDROcodone 10 mg-acetaminophen 325 mg tablet 1/2 -1 po TID prn | | painDate: 12/28/17 filledSource: PRESCRIPTION SOLUTIONSName: Lantus | | U-100 Insulin 100 unit/mL subcutaneous solution 10 units subq | | dailyDate: 02/22/18 filledSource: PRESCRIPTION SOLUTIONSName: ProAir | | HFA 90 mcg/actuation aerosol inhaler Inhale 2 puff(s) every 4 hours by | | inhalation route.Date: 08/27/17 filledSource: PRESCRIPTION | | SOLUTIONSName: silver sulfadiazine 1 % topical creamDate: 08/13/17 | | filledSource: PRESCRIPTION SOLUTIONSName: TRUEplus Pen Needle 31 gauge | | x 10/09"Date: 03/03/17 filledSource: PRESCRIPTION | | SOLUTIONSVaccinesReviewed VaccinesInfluenzaVaccine Type: influenza, | | high dose seasonalDate: 04/21/18Amt.: 0.5 mLRoute: IntramuscularSite: | | Deltoid, RightLot #: [id number].: Sanofi PasteurExp. Date: 10/23/18Date | | on VIS: 03/02/15VIS Given: 04/21/18Vaccinator: Shari Durham, | | CNSVaccine Type: influenza, high dose seasonalDate: | | 06/02/17mt.:Route:Site:Lot #:Mfr.:Exp. Date:Date on VIS:VIS | | Given:Account Solutions Analyst:Vaccine Type: influenza, injectable, quadrivalentDate: | | 06/02/17mt.:Route:Site: Deltoid, RightLot #: [id number].: | | SeqirusExp. Date: 01/23/18Date on VIS:VIS Given: | | 06/02/17Vaccinator:PneumococcalVaccine Type: pneumococcal conjugate PCV | | 13Date: 11/09/17Amt.: 0.5 mLRoute: IntramuscularSite: Deltoid, | | RightLot #: [id number].: Other manufacturerExp. Date: 09/25/19Date on | | VIS: 05/31/15VIS Given: 11/09/17Vaccinator: Meghan MolnairdVaccine | | Type: pneumococcal polysaccharide WVV08Ogpo: | | 05/27/16Amt.:Route:Site:Lot #:[id number].:Exp. Date:Date on VIS:VIS | | Given:Account Solutions Analyst:ProblemsReviewed Problems* Type II diabetes mellitus | | uncontrolled - Onset: 10/03/2017* Diabetic neuropathy* Mixed | | hyperlipidemia - Onset: 10/03/2017* Tobacco user - Onset: 10/03/2017* | | Essential hypertension* Cardiomyopathy - Onset: 2017* Stasis | | dermatitis - Onset: 2017* Chronic obstructive lung disease - | | Onset: 08/27/2017* Chronic kidney disease stage 4 - Onset: 10/03/2017* | | Low back pain* Lumbar radiculopathy* Postmenopausal osteoporosis* | | Hepatitis C antibody test positive - Onset: 12/28/2017* Amputated below | | knee - Onset: 10/03/2017Family HistoryReviewed Family HistoryBrother- | | Heart disease- all 3 of this- Type 2 diabetes mellitusMother- | | Pulmonary emphysema- Disorder of thyroid glandPaternal Grandmother- | | Malignant tumor of breastSister- Malignant tumor of breast- Type 2 | | diabetes mellitusSocial HistoryReviewed Social HistoryFamily Medicine | | and Medical Wellness Visit/IPPEAble to Care for Self: NLive alone or | | with others?: with othersAdvance directive: Marycruz you currently | | employed?: NEducation: 12Occupation: DisabledGeneral stress level: | | MediumNumber of children: 3Guns present in home: NAlcohol intake: | | NoneCaffeine intake: OccasionalIllicit drugs: NODiet: DiabeticExercise | | level: NoneHard of hearing or deaf in one or both ears?: NLegally blind | | in one or both eyes?: NSexual orientation: HeterosexualSmoke alarm in | | home: YSmoking Status: Current every day smokerSmoker (07/28 PPD)Has | | smoked since age: 25Passive smoke exposure?: YChewing tobacco: | | noneTobacco-years of use: 25Seat belts used routinely: YSunscreen used | | routinely: NIs the patient ambulatory?: Yes: limited self-mobility with | | assistive device(s); generally relies on wheeled mobilityTobacco | | cessation counseling provided?: YSingle or multi-level home/work?: | | single level homeMarital status: MarriedSurgical HistoryReviewed | | Surgical History* Cholecystectomy* Amputation - 02/25/2016 - LT leg | | amputation above the knee* Colonoscopy - 02/24/2014* Stent - 07/27/2006 | | - cardiac stent* delivery - 07/27/1975GYN HistoryReviewed 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 I:AB. | | S:ECTOPICS:MULTIPLE:LIVINPast Medical HistoryReviewed Past Medical | | HistoryOther: Y - Dialysis from 02/2016 to 10/2016 with fistula in LT | | armStent: Y - cardiac stentNotes: Broke LT leg on 01/21/2016 and had | | internal fixation performed but after she was discharged, she was | | admitted back into the hospital 2 weeks later with severe infection. | | Her LT leg (from knee down) amputated 03/03/2016 from severe infection | | while in [facility].ScreeningHPIMedicare Annual Wellness | | VisitReported by patient.Diet and Nutrition: healthy dietFracture Risk: | | no history of fractures; no recent explained fracture; no sudden | | unexplained fractures; no previous musculoskeletal injuriesPhysical | | Activity: does not exercise on a regular basis; poor physical | | conditionDepression Risk: never feels sad, empty, or tearful; no loss | | of interest in activities; no significant changes in weight; no sleep | | disturbances or insomnia; no agitation; no loss of energy; no feelings | | of worthlessness or guilt; no thoughts of suicide; no history of | | depression; no history of mood disordersOrientation: no disorientation | | to time; no disorientation to date; no disorientation to | | placeConcentration and Memory: no decreased concentrating ability; no | | memory lapses or loss; does not forget wordsSpeech/Motor difficulties: | | no speech difficulties; no difficulty expressing formulated concepts; | | no difficulty with fine manipulative tasks; no difficulty | | writing/copying; no slowed reaction time; does not knock things over | | when trying to pick them upHearing: no loss of hearingVision: no vision | | problemsActivities of Daily Living: able to bathe with limited or no | | assistance; able to contol urination and bowels; able to dress with | | limited or no assistance; able to feed self with limited or no | | assistance; able to get out of chair or bed with limited or no | | assistance; able to groom with limited or no assistance; able to toilet | | with limited or no assistanceInstrumental Activities of Daily Living: | | able to do house work with limited or no assistance; able to grocery | | shop with limited or no assistance; able to manage medications with | | limited or no assistance; able to manage money with limited or no | | assistance; able to prepare meals with limited or no assistance; able | | to use the phone with limited or no assistanceFalls Risk Assessment: Pt | | in a wheel chiar. Left leg amputatedHome Safety: no unsafe dustin | | hazzards; no unsafe stairs; no unsafe gas appliances; working smoke/CO | | detectors; wears protective head gear for biking/high velocity; use of | | seatbelts; practicing 'safer sex'; no vision or hearing loss while | | driving; no fire arms; has hand bars in the bathroom/shower; good | | lighting in the homeMrsEssence Bean is here for a Medicare Annual Wellness | | Visit. Over the last 4 weeks she states that things have been going | | "good and bad parts about equal", rates her health as "good" and | | is very confident that she can control or manage most of her health | | problems. She is at moderate risk for falls with falls in the last 12 | | months. Her physical and emotional health moderately affects her | | activities of daily living. Nohospitalizations, ER, or urgent care | | clinic visits in the last 12 months.ROSMusculoskeletal:: Kendra 03/05. | | Patient reports no incontinence, no difficulty urinating, no | | hematuria, and no increased frequency.Procedure DocumentationFlu | | Vaccine High-Dose:Influenza vaccine given intramuscularly to left | | side.Administered by: Luli #: [id number] date: | | 10/23/2018Assessment / Plan1. Adult health jvysxtxzhqrB73.00: Encounter | | for general adult medical examination without abnormal findings2. | | Depression heyxjbqppT68.89: Encounter for screening for other | | disorder3. Screening for mtvzvkmzJ37.9: Encounter for screening, | | unspecified4. Advance care vpxpsfglF91.89: Other specified counseling* | | ADVANCE CARE PLANNING: CARE INSTRUCTIONS5. Advance directive discussed | | with wmzfwphU60.89: Other specified counseling* ADVANCE DIRECTIVE | | EDUCATION* ADVANCE DIRECTIVES: CARE INSTRUCTIONS6. Screening for | | malignant neoplasm of bfhnbeS40.31: Encounter for screening mammogram | | for malignant neoplasm of breast* MAMMO, SCREENING, DIGITAL, | | BILATERAL7. Alcohol consumption epormcvevB55.89: Encounter for | | screening for other disorder8. Body mass index 20-24 - xpkveiR78.24: | | Body mass index (BMI) 24.0-24.9, adult9. Influenza qvojkwjurzbF05: | | Encounter for immunization* FLUZONE HIGH-DOSE [id number] (PF) 180 | | MCG/0.5 ML INTRAMUSCULAR SYRINGE -influenza, high dose seasonal | | Site: Deltoid, Right Qty: 0.5 mL Administered 04/21/2018 | | Perform Date: 04/21/2018Discussion NotesMedications reviewed. No | | changes to medications. List of medications given to patient. | | Counseling was provided today re: healthy eating habits and regular | | exercises, alcohol and tobacco use. Goals for better health discussed. | | Immunizations reviewed. Screenings discussed. Discussed Advanced | | Directives. Copy given to patient today. Results of cognitive exam, | | fall screen, incontinence screen, and pain severity discussed with | | patient. All most recent labs reviewed. Discussed recent systolic and | | diastolic blood pressure readings. Questions answered and provided | | patient with a copy of all current screenings and services.Return to | | OfficeNone recorded.Encounter Sign-OffEncounter signed-off by SHARI | | TRAVIS DURHAM, 04/27/2018. | + + + + + + +---+ + | OUTPATIEN | Admitter: | [facility] | | | National | | T | DR | Meg | 8 | | Park | | | JAZZMINE | Cardiolog | 08:38:00 | | Medical | | | [facility] | y | PM CDT | | Center | | | | Associate | | | Clinics | | | | s | | | | + + + + +---+ + | OUTPATIEN | Admitter: | Owen | | | [facility] | | T | SHARI | Family | 8 | | r | | | [facility] | [facility] | :31:00 | | Physician | | | | | PM CDT | | s Hot | | | | | | | [place] | | | | | | | [place] | + + + + +---+ + | OUTPATIEN | Admitter: | Owen | | | [facility] | | T | SHARI | Family | 8 | | r | | | [facility] [place] | [facility] | 01:30:00 | | Physician | | | | | PM CDT | | s Hot | | | | | | | [place] | | | | | | | [place] | + + + + +---+ + | OUTPATIEN | Admitter: | Owen | | | [facility] | | T | SHARI | Family | 8 | | r | | | [facility] | Medicine | 05:54:00 | | Physician | | | | | PM CDT | | s Hot | | | | | | | [facility] | | | | | | | [facility] | + + + + +---+ + | Outpatien | | HF IM-HF | | | [facility] | | t | | Ortho | 8 | | [facility] | | | | | 10:11:25 | | Clinics | | | | | AM CDT | | | + + + + +---+ + + + | AGE TIME PATIENT REPORTED: 67FACILITY / VISIT TYPE: [id number] | | COMPLAINT:FIND:PT:PATIENT:NOM:REPORTED:[id number]: | + + + + + + +---+ + | OUTPATIEN | Admitter: | [facility] | | | National | | T | DR | [facility] | 8 | | Park | | | JAZZMINE | Cardiolog | 11:34:00 | | Medical | | | [facility] | y | AM CDT | | Center | | | | Associate | | | Clinics | | | | s | | | | + + + + +---+ + | OUTPATIEN | Admitter: | [facility] | | | National | | T | DR | Meg | 8 | | Park | | | JAZZMINE | Cardiolog | :59:00 | | Medical | | | [facility] | y | AM CDT | | Center | | | | Associate | | | Clinics | | | | s | | | | + + + + +---+ + | OUTPATIEN | Admitter: | NPC[facility] | | | National | | T | DR | Meg | 8 | | Park | | | JAZZMINE | Cardiolog | 10:59:00 | | Medical | | | [facility] | y | AM CDT | | Center | | | | Associate | | | Clinics | | | | s | | | | + + + + +---+ + | OUTPATIEN | Admitter: | NPC[facility] | | | National | | T | DR | [facility] | 8 | | Park | | | JAZZMINE | Cardiolog | 10:02:00 | | Medical | | | [facility] | y | AM CDT | | Center | | | | Associate | | | Clinics | | | | s | | | | + + + + +---+ + | Outpatien | Attender: | DOMI_Ezio | | | National | | t | DR Thais Weaver | 8 | | Park | | | JAZZMINE | Cardiolog | 09:02:00 | | Medical | | | ST | y | AM CDT - | | Center | | | JOHNAdmit | Associate | | | Clinics | | | ter: | yolande | 8 | | | | Thais DOVER | | 09:59:00 | | | | | [facility] | | AM CDT | | | + + + + +---+ + + + | PatientName : ANDIE BAEN (67yo, F) ID# [id number]. Date/Time : | | 03/08/2018 09:15AMDOB : 1950ervice Dept. : [facility] | | Cardiology AssociatesProvider : JAZZMINE HARVEY MDInsuranceMed | | Primary: [facility] - CARE IMPROVEMENT PLUS (MEDICARE | | REPLACEMENT/ADVANTAGE - PPO)Insurance # : [id number]/Group # : | | [id number] : Wilbert RHOADES Provider Name : JF, | | JONOEmployer Name : UNKNOWNPrescription: ORX - Member is eligible. | | detailsChief ComplaintFollowup: EdemaPatient's Care TeamPrimary Care | | Provider (Primary Insurance): JFJONO HARTMAN: [address], [address] | | [facility], [place] [address], , Fax [phone] | | [phone] Provider (Primary Insurance): JFJONO HARTMAN: | | DEQUANSTAR, [address] [facility], [place] [address], Ph ([phone]) | | [phone], Patient's Pharmacies[facility] - [place] ([facility]): [address] [place] [address] [address], [place] [address], Ph | | , VitalsHt:5 ft 4.5 in 03/08/2018 08:41 | | amWt:141 lbs 03/08/2018 08:46 amBMI:23.8 03/08/2018 08:46 amBP:116/64 | | 03/08/2018 08:47 amPulse:76 bpm 03/08/2018 08:47 amAllergiesReviewed | | AllergiesNKDAMedicationsReviewed MedicationsName: atorvastatinDate: | | 11/02/17 enteredSource: Emeka LeeName: Coreg 6.25mg bidDate: 11/02/17 | | enteredSource: Emeka HuddlestonName: gabapentin 600 mg tablet Take 2 | | tablet(s) 3 times a day by oral route.Date: 11/02/17 enteredSource: | | Emeka HuddlestonName: HYDROcodone 10 mg-acetaminophen 325 mg tablet Take 1 | | tablet(s) as needed by oral route.Date: 11/02/17 enteredSource: Emeka | | LeeName: Lasix 10 bidDate: 11/02/17 enteredSource: Emeka | | LeeProblemsReviewed Problems* Edema - Onset: 11/02/2017Family | | HistoryReviewed Family Historybrothers and sisterSocial HistoryReviewed | | Social HistorySmoking Status: Current every day smokerSmoker (07/28 | | PPD)Surgical HistoryReviewed Surgical HistoryPast Medical | | HistoryReviewed Past Medical HistoryAngioplasty (balloon): | | YCardiomyopathy: YHeart Disease: YHeart cath: YHeart stents: YHigh | | Blood Pressure: YHigh Cholesterol: YDocuments for | | DiscussionN/AScreeningNone recorded.HPINone recorded.ROSPatient reports | | shortness of breath when walking but reports no chest pain, no arm | | pain on exertion, no shortness of breath when lying down, no | | palpitations, and no known heart murmur. She reports no fever, no night | | sweats, no significant weight gain, no significant weight loss, and no | | exercise intolerance. She reports no dry eyes, no irritation, and no | | vision change. She reports no difficulty hearing and no ear pain. She | | reports no frequent nosebleeds and no nose/sinus problems. She reports | | no sore throat, no bleeding gums, no snoring, no dry mouth, no mouth | | ulcers, no oral abnormalities, and no teeth problems. She reports no | | jugular vein distension and no swollen glands. She reports no cough, no | | wheezing, no shortness of breath, and no coughing up blood. She | | reports no abdominal pain, no vomiting, normal appetite, no diarrhea, | | not vomiting blood, no nausea, and no constipation. She reports no | | incontinence, no difficulty urinating, no hematuria, and no increased | | frequency. She reportsno muscle aches, no muscle weakness, no | | arthralgias/joint pain, no back pain, and no swelling in the | | extremities. She reports no abnormal mole, no jaundice, and no rashes. | | She reports no loss of consciousness, no weakness, no numbness, no | | seizures, no dizziness, and no headaches. She reports no depression, no | | sleep disturbances, feeling safe in relationship, and no alcohol | | abuse. She reports no fatigue. She reports no swollen glands and no | | bruising. She reports no runny nose, no sinus pressure, no itching, no | | hives, and no frequent sneezing.ROS as noted in the HPIPhysical | | ExamPatient is a 67-year-old female.Constitutional: General Appearance: | | well-nourished, well-developed, and appears stated age. Level of | | Distress: comfortable.Psychiatric: Mental Status: alert and normal | | affect. Orientation: oriented to time, place, and person.Eyes: Lids and | | Conjunctivae: no discharge, pallor, xanthelasma, or arcus senilis and | | non-injected and anicteric.ENMT: Lips, Teeth, and Gums: normal | | dentition. Oropharynx: no cyanosis or pallor.Neck: Carotid Arteries: no | | bruits or thrills and bilateral normal upstroke. Jugular Veins: normal | | jugular venous pressure. Cervical Lymph Nodes: non tender or not | | enlarged. Thyroid: not enlarged, non tender, or no nodules.Lungs: | | Respiratory Effort: unlabored. Chest Exam: no thoracic deformity or | | chest wall tenderness and normal curvature. Percussion: resonant. | | Auscultation: no rales or rhonchi and expiratory | | wheezing.Cardiovascular: Precordial Exam: no heaves or precordial | | thrills and non displaced focal PMI. Rate And Rhythm: regular. Heart | | Sounds: no rub, gallop, or click and normal S1 and physiologically | | split S2. Systolic Murmur: not heard. Diastolic Murmur: not heard. | | Extremities: no cyanosis or edema.Peripheral Pulses: Pulses: full and | | equal in all extremities except if noted and no bruits | | appreciated.Abdomen: Inspection and Palpation: non distended or tender, | | no bruit or masses, and soft and normal aorta. Liver: non tender or no | | hepatomegaly. Spleen: non tender or no splenomegaly.Musculoskeletal: | | Inspection: no joint tenderness or swelling and no erythema.Neurologic: | | Gait: normal gait. Motor: normal strength and tone.Skin: Inspection | | and Palpation: warm and dry. Nails: no clubbing.Assessment / PlanSee | | additional documentation for this date of service-1. TldyxD71.9: Edema, | | unspecified* LEG AND ANKLE EDEMA: CARE INSTRUCTIONS2. Coronary | | arteriosclerosis in [place] ueqkkvT95.10: Atherosclerotic heart disease | | of [place] coronary artery without angina pectoris3. Primary | | cugyzcrcydmdbdY45.9: Cardiomyopathy, unspecified4. Essential | | dwreoacsjyjnK95: Essential (primary) hypertension* HIGH BLOOD PRESSURE: | | CARE INSTRUCTIONS* LEARNING ABOUT HIGH BLOOD PRESSURE5. Peripheral | | vascular boycafsB86.9: Peripheral vascular disease, unspecified* | | PERIPHERAL ARTERIAL DISEASE OF THE LEG: CARE INSTRUCTIONSReturn to | | Office* JAZZMINE HARVEY MD for Office Visit 15 at [facility] | [facility] on 07/01/2018 at 10:15 AMEncounter | | Sign-OffEncounter signed-off by JAZZMINE HARVEY MD, 03/10/2018. | + + + + + + +---+ + | OUTPATIEN | Admitter: | [facility] | | | [facility] | | T | SHARI | Family | 8 | | r | | | [place] | [facility] | 12:55:00 | | Physician | | | | | PM CDT | | s Hot | | | | | | | [place] | | | | | | | Sadaf | + + + + +---+ + | OUTPATIEN | Admitter: | Owen | | | [facility] | | T | SHARI | Family | 8 | | r | | | [place] | [facility] | 12:53:00 | | Physician | | | | | PM CDT | | s Hot | | | | | | | [place] | | | | | | | Sadaf | + + + + +---+ + | OUTPATIEN | Attender: | [place] | | | [facility] | | T | Jono | Family | 8 | | r | | | Jf | Medicine | :: | | Physician | | | | | PM CDT | | s Hot | | | | | | | [place] | | | | | | | Sadaf | + + + + +---+ + | OUTPATIEN | Attender: | [place] | | | [facility] | | T | Jono | Family | 8 | | r | | | Jf | Medicine | :55: | | Physician | | | | | AM CDT | | s Hot | | | | | | | [place] | | | | | | | Sadaf | + + + + +---+ + | OUTPATIEN | Admitter: | Owen | | | [facility] | | T | SHARI | Family | 8 | | r | | | AALIYAH | Medicine | :09:00 | | Physician | | | | | PM CDT | | s Hot | | | | | | | [place] | | | | | | | Sadaf | + + + + +---+ + | OUTPATIEN | Attender: | Owen | | | [facility] | | T | Jono | | 8 | | r | | | Jf | Medicine | 01:08:59 | | Physician | | | | | PM CDT | | s Hot | | | | | | | [place] | | | | | | | Sadaf | + + + + +---+ + | Outpatien | Attender: | Owen | | | [facility] | | t | Jono | | 8 | | r | | | GlynneyAdm | Medicine | 12:09:00 | | Physician | | | itter: | | PM CDT | | s Hot | | | SHARI | | | | [place] | | | AALIYAH | | | | [place] | + + + + +---+ + + + | PatientName : ANDIE BEAN (67yo, F) ID# [id number]. Date/Time : | | 02/16/2018 11:15AMDOB : ervice Dept. : [facility] | | MedicineProvider : JONO RHOADES, Sheacritical access hospitalMed Primary: UNITED | | HEALTHCARE (MEDICARE REPLACEMENT/ADVANTAGE - PPO)Insurance # : | | [id number]/Group # : [id number]: [id number] - Member is eligible. | | detailsChief ComplaintFollow-UpFollowup: Type II diabetes mellitus | | uncontrolledPatient's Care TeamNurse Practitioner: SHARI DURHAM, | | CNSPrimary Care Provider: Adonis SOFIA's PharmaciesPHIL[facility] | | [facility] ([place]): [facility] [address], [place] | | [address], , VitalsHt:5 ft 5 in (165.1 | | cm) 02/16/2018 11:16 amWt:237 lbs (107.5 kg) 02/16/2018 11:16 | | amBMI:39.4 02/16/2018 11:16 amBP:106/60 sitting L arm 02/16/2018 11:16 | | smU5Xrv:98% Room Air at Rest 02/16/2018 11:16 amPulse:66 bpm regular | | 02/16/2018 11:17 amAllergiesReviewed AllergiesPRAVACHOL: Myalgias | | (muscle pain), Other - FatigueMedicationsReviewed MedicationsName: | | Anoro Ellipta 62.5 mcg-25 mcg/actuation powder for inhalation PRNDate: | | 10/19/17 filledSource: PRESCRIPTION SOLUTIONSName: aspirin 325 mg | | tablet Take 1 tablet(s) every day by oral route in the morning.Date: | | 11/09/17 enteredSource: Irais ColulaName: atorvastatin 20 mg tablet | | Take 1 tablet(s) every day by oral route., start 08/27/2017Date: | | 08/27/17 filledSource: PADMINI ALLEN CNPName: carvedilol 6.25 mg | | tablet Take 1 tablet(s) twice a day by oral route.Date: 01/22/18 | | filledSource: PRESCRIPTION SOLUTIONSName: cefUROXime axetil 250 mg | | tablet Take 1 tablet(s) every 12 hours by oral route.Date: 02/16/18 | | prescribedSource: EMIGDIO SOFIAame: furosemide 40 mg tablet Take | | 1 tablet(s) twice a day by oral route.Date: 01/20/18 filledSource: | | PRESCRIPTION SOLUTIONSName: gabapentin 600 mg tablet Take 2 tablet(s) 3 | | times a day by oral route.Date: 01/28/18 filledSource: PRESCRIPTION | | SOLUTIONSName: HumaLOG KwikPen (U-100) Insulin 100 unit/mL subcutaneous | | sliding scale with 5 units being most injected PRNDate: 06/01/17 | | filledSource: PRESCRIPTION SOLUTIONSName: HYDROcodone 10 | | mg-acetaminophen 325 mg tablet 1/2 -1 po TID prn painDate: 12/28/17 | | filledSource: PRESCRIPTION SOLUTIONSName: Lantus U-100 Insulin 100 | | unit/mL subcutaneous solution 10 units subq dailyDate: 12/08/17 | | filledSource: PRESCRIPTION SOLUTIONSName: Miacalcin 200 unit/Actuation | | nasal soln Take by nasal route.Date: 11/09/17 enteredSource: Irais | | ColulaName: ProAir HFA 90 mcg/actuation aerosol inhaler Inhale 2 | | puff(s) every 4 hours by inhalation route.Date: 08/27/17 | | filledSource: PRESCRIPTION SOLUTIONSName: silver sulfadiazine 1 % | | topical creamDate: 08/13/17 filledSource: PRESCRIPTION SOLUTIONSName: | | TRUEplus Pen Needle 31 gauge x 10/09"Date: 03/03/17 filledSource: | | PRESCRIPTION SOLUTIONSVaccinesReviewed VaccinesInfluenzaVaccine Type: | | influenza, high dose seasonalDate: 06/02/17mt.:Route:Site:Lot | | #:Mfr.:Exp. Date:Date on VIS:VIS Given:Account Solutions Analyst:Vaccine Type: | | influenza, injectable, quadrivalentDate: 06/02/17mt.:Route:Site: | | Deltoid, RightLot #: [id number].: SeqirusExp. Date: 01/23/18Date on | | VIS:VIS Given: 06/02/17Vaccinator:PneumococcalVaccine Type: | | pneumococcal conjugate PCV 13Date: 11/09/17Amt.: 0.5 mLRoute: | | IntramuscularSite: Deltoid, RightLot #: [id number].: Other | | manufacturerExp. Date: 09/25/19Date on VIS: 05/31/15VIS Given: | | 11/09/17Vaccinator: Meghan NavidVaccine Type: pneumococcal | | polysaccharide [id number]: 05/27/16Amt.:Route:Site:Lot #:Mfr.:Exp. | | Date:Date on VIS:VIS Given:Account Solutions Analyst:ProblemsReviewed Problems* | | Hepatitis C antibody test positive - Onset: 12/28/2017* Essential | | hypertension* Postmenopausal osteoporosis* Lumbar radiculopathy* | | Diabetic neuropathy* Low back pain* Cardiomyopathy - Onset: 2017* | | Stasis dermatitis - Onset: 2017* Mixed hyperlipidemia - Onset: | | 10/03/2017* Tobacco user - Onset: 10/03/2017* Type II diabetes mellitus | | uncontrolled - Onset: 10/03/2017* Amputated below knee - Onset: | | 10/03/2017* Chronic kidney disease stage 4 - Onset: 10/03/2017* Chronic | | obstructive lung disease - Onset: 08/27/2017Family HistoryFamily | | History not reviewed (last reviewed 01/11/2018)Brother- Heart disease- | | all 3 of this- Type 2 diabetes mellitusMother- Pulmonary | | emphysema- Disorder of thyroid glandPaternal Grandmother- Malignant | | tumor of breastSister- Malignant tumor of breast- Type 2 diabetes | | mellitusSocial HistorySocial History not reviewed (last reviewed | | 01/11/2018)Family MedicineAdvance directive: NEducation: 12Occupation: | | DisabledGeneral stress level: MediumGuns present in home: NAlcohol | | intake: NoneCaffeine intake: OccasionalIllicit drugs: NODiet: | | DiabeticExercise level: NoneHard of hearing or deaf in one or both | | ears?: NLegally blind in one or both eyes?: NSexual orientation: | | HeterosexualSmoke alarm in home: YSmoking Status: Current every day | | smokerSmoker (1 / PPD)Has smoked since age: 25Passive smoke | | exposure?: YChewing tobacco: noneTobacco-years of use: 25Seat belts | | used routinely: YSunscreen used routinely: NIs the patient ambulatory?: | | Yes: limited self-mobility with assistive device(s); generally relies | | on wheeled mobilityTobacco cessation counseling provided?: YSurgical | | HistorySurgical History not reviewed (last reviewed 01/11/2018)* | | Cholecystectomy* Amputation - 02/25/2016 - LT leg amputation above the | | knee* Colonoscopy - 02/24/2014* Stent - 07/27/2006 - cardiac stent* | | delivery - 07/27/1975GYN HistoryGYN History not reviewed (last | | reviewed 01/11/2018)Most Recent Mammogram: (Notes: never | | had).Obstetric HistoryObstetric History not reviewed (last reviewed | | 01/11/2018)TOTAL: 3FULL: 3PRE:AB. I:AB. S:ECTOPICS:MULTIPLE:LIVING: | | 3Past Medical HistoryPast Medical History not reviewed (last reviewed | | 01/11/2018)Other: Y - Dialysis from 02/2016 to 10/2016 with fistula in | | LT armStent: Y - cardiac stentNotes: Broke LT leg on 01/21/2016 and had | | internal fixation performed but after she was discharged, she was | | admitted back into the hospital 2 weeks later with severe infection. | | Her LT leg (from knee down) amputated 03/03/2016 from severe infection | | while in [facility].HPIBell's PalsyReported by | | patient.Location: no active infectionQuality: without painDuration: | | resolvedOnset/Timing: gone nowDiabetes F/UReported by patient.Review | | finger sticks: 190-400Context: home blood sugar range highAssociated | | Symptoms: no dizziness; no headaches; no increased thirst; no increased | | urinationNotes:Andie states that after the last round of steroid she | | has not been able to get her sugar under control.SinusitisReported by | | patient.Onset/Timing: initially started 3weeks agoQuality: congested; | | productive coughSeverity: mildAssociated Symptoms: nasal discharge from | | nostrils; headache ; facial pain ; sinus painROSConstitutional: | | Constitutional: no significant weight gain or loss and no | | fever.Cardiovascular: Cardiovascular: no chest pain.Respiratory: | | Respiratory: no shortness of breath.Neurologic: Neurologic: facial | | weakness has resolved.ROS as noted in the HPIPhysical ExamPatient is a | | 67-year-old female.Constitutional: General Appearance: well-nourished | | and well-developed. Level of Distress: chronically ill. Ambulation: in | | wheelchair.Psychiatric: Mental Status: active and alert.Eyes: Pupils: | | PERRLA. EOM: EOMI.ENMT: Ears: no lesions on external ear and TMs clear. | | Hearing: no hearing loss.Lungs: Auscultation: decreased breath | | sounds.Cardiovascular: Heart Auscultation: RRR and CARLIE (3/6).Abdomen: | | Bowel Sounds: normal. Inspection and Palpation: soft.Musculoskeletal:: | | Extremities: left BKA, RLE with 2+ edema up into thigh.Neurologic: | | Sensation Right Foot: right facial weakness with + [place] | | sign-improved.Skin: Lesion Type: location: RLE. Color: pink. | | Location/Description: well demarcated. Infectious signs: no warmth, | | swelling, tenderness, fluctuance, induration, or lymphangitic | | streaking; serous drainage.Foot Exam:: Right Foot: right foot toes were | | examined and digital hair absent right; Marked swelling and loss of | | sensation. Left Foot: amputated.Assessment / Plan1. Type II diabetes | | mellitus uncontrolled -Medications are reviewed with patient. Any | | issues where discussed. No current changes are made at this timeE11.65: | | Type 2 diabetes mellitus with hyperglycemia* HBA1C (HEMOGLOBIN A1C), | | BLOOD2. 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 Chronic | | kidney disease stage 4 -N18.4: Chronic kidney disease, stage 4 | | (severe)* BASIC METABOLIC PANEL -Specimen source: Blood venous4. | | Tobacco user -Z72.0: Tobacco use* STOPPING SMOKING: CARE INSTRUCTIONS5. | | Acute qjrmdlhogG38.90: Acute sinusitis, unspecified* cefuroxime axetil | | 250 mg tablet -Take 1 tablet(s) every 12 hours by oral route. Qty: 20 | | tablet(s) Refills: 0 [facility] [place]. | | Acute exacerbation of chronic obstructive airways disease -see | | puiipC56.1: Chronic obstructive pulmonary disease with (acute) | | exacerbation7. Cardiomyopathy -I42.9: Cardiomyopathy, prcdnlpxgwzJQM7P | | (HEMOGLOBIN A1C), BLOOD* Result:- HGB A1C: 7.9%Return to Office* SHARI | | TRAVIS DURHAM for Wellness Visit 30 at [facility] on | | 03/31/2018 at 10:00 AMEncounter Sign-OffEncounter signed-off by JONO | | DO JF, 02/19/2018. | + + + + + + +---+ + | OUTPATIEN | Admitter: | Owen | | | [facility] | | T | SHARI [facility] | 8 | | r | | [facility] | 01:07[facility] | | Physician | | | | | AM CDT | | s Hot | | | | | | | [place] | | | | | | | [place] | + + + + +---+ + | OUTPATIEN | Admitter: | Owen | | | [facility] | | T | SHARI | Family | 8 | | r | | | AALIYAH | Medicine | 11:51:00 | | Physician | | | | | AM CDT | | s Hot | | | | | | | [place] | | | | | | | [place] | + + + + +---+ + | Outpatien | Attender: | Owen | | | [facility] | | t | | Family | 8 | | r | | | [facility] | Medicine | 10:51:00 | | Physician | | | R | | AM CDT | | s Hot | | | NURSEAdmi | | | | [place] | | | tter: | | | | [place] | | | SHARI | | | | | | | AALIYAH | | | | | + + + + +---+ + + + | PatientName : ANDIE BEAN (67yo, F) ID# [id number]. Date/Time : | | 02/01/2018 10:15AMDOB : ervice Dept. : [facility] | | MedicineProvider : Sagrario SOFIA Primary: [employer] | | HEALTHCARE (MEDICARE REPLACEMENT/ADVANTAGE - PPO)Insurance # : | | [id number]/Group # : [id number]: [id number] - Member is eligible. | | detailsChief ComplaintNone recorded.Patient's Care TeamNurse | | Practitioner: SHARI DURHAM CNSPrimary Care Provider: JONO RHOADES, | | DOPatient's [facility] ([place]): [address] | | [address], [place] [address], , Fax ([phone]) | | [phone] recorded.AllergiesAllergies not reviewed (last | | reviewed 01/18/2018)PRAVACHOL: Myalgias (muscle pain), Other - | | FatigueMedicationsMedications not reviewed (last reviewed | | 01/18/2018)Name: Anoro Ellipta 62.5 mcg-25 mcg/actuation powder for | | inhalation PRNDate: 10/19/17 filledSource: PRESCRIPTION | | SOLUTIONSName: aspirin 325 mg tablet Take 1 tablet(s) every day by oral | | route in the morning.Date: 11/09/17 enteredSource: Irais ColulaName: | | atorvastatin 20 mg tablet Take 1 tablet(s) every day by oral route., | | start 08/27/2017Date: 08/27/17 filledSource: PADMINI ALLEN CNPName: | | carvedilol 6.25 mg tablet Take 1 tablet(s) twice a day by oral | | route.Date: 01/22/18 filledSource: PRESCRIPTION SOLUTIONSName: | | cefUROXime axetil 250 mg tablet Take 1 tablet(s) every 12 hours by oral | | route.Date: 02/16/18 prescribedSource: EMIGDIO SOFIAame: | | furosemide 40 mg tablet Take 1 tablet(s) twice a day by oral | | route.Date: 02/25/18 renewedSource: PADMINI ALLEN CNPName: | | gabapentin 600 mg tablet Take 2 tablet(s) 3 times a day by oral | | route.Date: 01/28/18 filledSource: PRESCRIPTION SOLUTIONSName: | | HumaLOG KwikPen (U-100) Insulin 100 unit/mL subcutaneous sliding scale | | with 5 units being most injected PRNDate: 06/01/17 filledSource: | | PRESCRIPTION SOLUTIONSName: HYDROcodone 10 mg-acetaminophen 325 mg | | tablet 1/2 -1 po TID prn painDate: 12/28/17 filledSource: | | PRESCRIPTION SOLUTIONSName: Lantus U-100 Insulin 100 unit/mL | | subcutaneous solution 10 units subq dailyDate: 12/08/17 filledSource: | | PRESCRIPTION SOLUTIONSName: Miacalcin 200 unit/Actuation nasal soln | | Take by nasal route.Date: 11/09/17 enteredSource: Irais ColulaName: | | ProAir HFA 90 mcg/actuation aerosol inhaler Inhale 2 puff(s) every 4 | | hours by inhalation route.Date: 08/27/17 filledSource: PRESCRIPTION | | SOLUTIONSName: silver sulfadiazine 1 % topical creamDate: 08/13/17 | | filledSource: PRESCRIPTION SOLUTIONSName: TRUEplus Pen Needle 31 gauge | | x 10/09"Date: 03/03/17 filledSource: PRESCRIPTION | | SOLUTIONSVaccinesVaccines not reviewed (last reviewed | | 01/11/2018)InfluenzaVaccine Type: influenza, high dose seasonalDate: | | 06/02/17mt.:Route:Site:Lot #:Mfr.:Exp. Date:Date on VIS:VIS | | Given:Account Solutions Analyst:Vaccine Type: influenza, injectable, quadrivalentDate: | | 06/02/17mt.:Route:Site: Deltoid, RightLot #: [id number].: | | SeqirusExp. Date: 01/23/18Date on VIS:VIS Given: | | 06/02/17Vaccinator:PneumococcalVaccine Type: pneumococcal conjugate PCV | | 13Date: 11/09/17Amt.: 0.5 mLRoute: IntramuscularSite: Deltoid, | | RightLot #: [id number].: Other manufacturerExp. Date: 09/25/19Date on | | VIS: 05/31/15VIS Given: 11/09/17Vaccinator: Meghan MolnairdVaccine | | Type: pneumococcal polysaccharide APK16Gvcy: | | 05/27/16Amt.:Route:Site:Lot #:Mfr.:Exp. Date:Date on VIS:VIS | | Given:Account Solutions Analyst:ProblemsReviewed Problems* Hepatitis C antibody test | | positive - Onset: 12/28/2017* Essential hypertension* Postmenopausal | | osteoporosis* Lumbar radiculopathy* Diabetic neuropathy* Low back pain* | | Cardiomyopathy - Onset: 2017* Stasis dermatitis - Onset: | | 2017* Mixed hyperlipidemia - Onset: 10/03/2017* Tobacco user - | | Onset: 10/03/2017* Type II diabetes mellitus uncontrolled - Onset: | | 10/03/2017* Amputated below knee - Onset: 10/03/2017* Chronic kidney | | disease stage 4 - Onset: 10/03/2017* Chronic obstructive lung disease - | | Onset: 08/27/2017Family HistoryFamily History not reviewed (last | | reviewed 01/11/2018)Brother- Heart disease- all 3 of this- Type 2 | | diabetes mellitusMother- Pulmonary emphysema- Disorder of thyroid | | glandPaternal Grandmother- Malignant tumor of breastSister- Malignant | | tumor of breast- Type 2 diabetes mellitusSocial HistorySocial History | | not reviewed (last reviewed 01/11/2018)Family MedicineAdvance | | directive: NEducation: 12Occupation: DisabledGeneral stress level: | | MediumGuns present in home: NAlcohol intake: NoneCaffeine intake: | | OccasionalIllicit drugs: NODiet: DiabeticExercise level: NoneHard of | | hearing or deaf in one or both ears?: NLegally blind in one or both | | eyes?: NSexual orientation: HeterosexualSmoke alarm in home: YSmoking | | Status: Current every day smokerSmoker (1 07/28 PPD)Has smoked since age: | | 25Passive smoke exposure?: YChewing tobacco: noneTobacco-years of use: | | 25Seat belts used routinely: YSunscreen used routinely: NIs the | | patient ambulatory?: Yes: limited self-mobility with assistive | | device(s); generally relies on wheeled mobilityTobacco cessation | | counseling provided?: YSurgical HistorySurgical History not reviewed | | (last reviewed 01/11/2018)* Cholecystectomy* Amputation - 02/25/2016 - | | LT leg amputation above the knee* Colonoscopy - 02/24/2014* Stent - | | 07/27/2006 - cardiac stent* delivery - 07[birth year]27/1975GYN | | HistoryGYN History not reviewed (last reviewed 01/11/2018)Most Recent | | Mammogram: (Notes: never had).Obstetric HistoryObstetric History not | | reviewed (last reviewed 01/11/2018)TOTAL: 3FULL: 3PRE:AB. I:AB. | | S:ECTOPICS:MULTIPLE:LIVINPast Medical HistoryPast Medical History | | not reviewed (last reviewed 01/11/2018)Other: Y - Dialysis from 02/2016 | | to 10/2016 with fistula in LT armStent: Y - cardiac stentNotes: Broke | | LT leg on 01/21/2016 and had internal fixation performed but after she | | was discharged, she was admitted back into the hospital 2 weeks later | | with severe infection. Her LT leg (from knee down) amputated 03/03/2016 | | from severe infection while in [facility].Assessment / | | PlanNone recorded.Return to Office* TRAVIS OMALLEY for Wellness | | Visit 30 at [facility] on 04/21/2018 at 11:30 AMEncounter | | Sign-OffEncounter signed-off by JONO RHOADES DO, 03/26/2018. | + + + + + + +---+ + | OUTPATIEN | Admitter: | Owen | | | [facility] | | T | SHARI [facility] | 8 | | r | | | AALIYAH [facility] | 03:19:00 | | Physician | | | | | PM CDT | | s Hot | | | | | | | [place] | | | | | | | [place] | + + + + +---+ + | OUTPATIEN | Admitter: | Owen | | | [facility] | | T | SHARI | Family | 8 | | r | | | AALIYAH | Medicine | 07:06: | | Physician | | | | | PM CDT | | s Hot | | | | | | | [place] | | | | | | | [place] | + + + + +---+ + | OUTPATIEN | Admitter: | [place] | | | [facility] | | T | SHARI | Family | 8 | | r | | | AALIYAH | Medicine | 07:05:00 | | Physician | | | | | PM CDT | | s Hot | | | | | | | [place] | | | | | | | [place] | + + + + +---+ + | OUTPATIEN | Admitter: | [place] | | | [facility] | | T | SHARI | Family | 8 | | r | | | AALIYAH | Medicine | 05:44:00 | | Physician | | | | | PM CDT | | s Hot | | | | | | | [place] | | | | | | | [place] | + + + + +---+ + | Outpatien | Attender: | Owen | | | Moisés | | t | Jono | | 8 | | r | | | GlynneyAdm | Medicine | 04:44:00 | | Physician | | | itter: | | PM CDT - | | s Hot | | | SHARI | | | | Meg | | | AALIYAH | | 8 | | Sadaf | | | | | 06:06:00 | | | | | | | PM CDT | | | + + + + +---+ + + + | PatientName : ANDIE BEAN (67yo, F) ID# [id number]. Date/Time : | | 01/18/2018 03:45PMDOB : [facility] | | MedicineProvider : Burke SOFIAMed Primary: UNITED | | HEALTHCARE (MEDICARE REPLACEMENT/ADVANTAGE - PPO)Insurance # : | | [id number]/Group # : [id number]: [id number] - Member is eligible. | | detailsChief ComplaintFollow up Ocasio's PalsyPatient's Care TeamNurse | | Practitioner: SHARI DURHAM, CNSPrimary Care Provider: JONO RHOADES, | | DOPatient's PharmaciesCOPPER SPRINGS [facility] [facility] [address] [place] [address], , Fax ([phone]) | | [phone]:5 ft 5 in (165.1 cm) 01/18/2018 04:17 pmWt:237.6 lbs | | (107.77 kg) 01/18/2018 04:17 pmBMI:39.5 01/18/2018 04:17 wsD0Mtj:98% | | Room Air at Rest 01/18/2018 04:18 pmPulse:62 bpm regular 01/18/2018 | | 04:18 pmAllergiesReviewed AllergiesPRAVACHOL: Myalgias (muscle pain), | | Other - FatigueMedicationsReviewed MedicationsName: Anoro Ellipta 62.5 | | mcg-25 mcg/actuation powder for inhalation PRNDate: 10/19/17 | | filledSource: PRESCRIPTION SOLUTIONSName: aspirin 325 mg tablet Take 1 | | tablet(s) every day by oral route in the morning.Date: 11/09/17 | | enteredSource: Irais ColulaName: atorvastatin 20 mg tablet Take 1 | | tablet(s) every day by oral route., start 08/27/2017Date: 08/27/17 | | filledSource: PADMINI ALLEN CNPName: Coreg 6.25 mg tablet Take 1 | | tablet(s) twice a day by oral route.Date: 10/20/17 renewedSource: | | Ellen SOFIA: furosemide 40 mg tablet Take 1 tablet(s) twice | | a day by oral route.Date: 12/28/17 filledSource: PRESCRIPTION | | SOLUTIONSName: gabapentin 600 mg tablet Take 2 tablet(s) 3 times a day | | by oral route.Date: 12/30/17 filledSource: PRESCRIPTION | | SOLUTIONSName: HumaLOG KwikPen (U-100) Insulin 100 unit/mL subcutaneous | | sliding scale with 5 units being most injected PRNDate: 06/01/17 | | filledSource: PRESCRIPTION SOLUTIONSName: HYDROcodone 10 | | mg-acetaminophen 325 mg tablet 1/2 -1 po TID prn painDate: 12/28/17 | | filledSource: PRESCRIPTION SOLUTIONSName: Lantus U-100 Insulin 100 | | unit/mL subcutaneous solution 10 units subq dailyDate: 12/08/17 | | filledSource: PRESCRIPTION SOLUTIONSName: Miacalcin 200 unit/Actuation | | nasal soln Take by nasal route.Date: 11/09/17 enteredSource: Irais | | ColulaName: ProAir HFA 90 mcg/actuation aerosol inhaler Inhale 2 | | puff(s) every 4 hours by inhalation route.Date: 08/27/17 | | filledSource: PRESCRIPTION SOLUTIONSName: silver sulfadiazine 1 % | | topical creamDate: 08/13/17 filledSource: PRESCRIPTION SOLUTIONSName: | | TRUEplus Pen Needle 31 gauge x 10/09"Date: 03/03/17 filledSource: | | PRESCRIPTION SOLUTIONSVaccinesVaccines not reviewed (last reviewed | | 01/11/2018)InfluenzaVaccine Type: influenza, high dose seasonalDate: | | 06/02/17mt.:Route:Site:Lot #:Mfr.:Exp. Date:Date on VIS:VIS | | Given:Account Solutions Analyst:Vaccine Type: influenza, injectable, quadrivalentDate: | | 06/02/17mt.:Route:Site: Deltoid, RightLot #: [id number].: | | SeqirusExp. Date: 01/23/18Date on VIS:VIS Given: | | 06/02/17Vaccinator:PneumococcalVaccine Type: pneumococcal conjugate PCV | | 13Date: 11/09/17Amt.: 0.5 mLRoute: IntramuscularSite: Deltoid, | | RightLot #: [id number].: Other manufacturerExp. Date: 09/25/19Date on | | VIS: 05/31/15VIS Given: 11/09/17Vaccinator: Meghan MolnairdVaccine | | Type: pneumococcal polysaccharide [id number]: | | 05/27/16Amt.:Route:Site:Lot #:Mfr.:Exp. Date:Date on VIS:VIS | | Given:Account Solutions Analyst:ProblemsReviewed Problems* Hepatitis C antibody test | | positive - Onset: 12/28/2017* Essential hypertension* Postmenopausal | | osteoporosis* Lumbar radiculopathy* Diabetic neuropathy* Low back pain* | | Cardiomyopathy - Onset: 2017* Stasis dermatitis - Onset: | | 2017* Mixed hyperlipidemia - Onset: 10/03/2017* Tobacco user - | | Onset: 10/03/2017* Type II diabetes mellitus uncontrolled - Onset: | | 10/03/2017* Amputated below knee - Onset: 10/03/2017* Chronic kidney | | disease stage 4 - Onset: 10/03/2017* Chronic obstructive lung disease - | | Onset: 08/27/2017Family HistoryFamily History not reviewed (last | | reviewed 01/11/2018)Brother- Heart disease- all 3 of this- Type 2 | | diabetes mellitusMother- Pulmonary emphysema- Disorder of thyroid | | glandPaternal Grandmother- Malignant tumor of breastSister- Malignant | | tumor of breast- Type 2 diabetes mellitusSocial HistorySocial History | | not reviewed (last reviewed 01/11/2018)Family MedicineAdvance | | directive: NEducation: 12Occupation: DisabledGeneral stress level: | | MediumGuns present in home: NAlcohol intake: NoneCaffeine intake: | | OccasionalIllicit drugs: NODiet: DiabeticExercise level: NoneHard of | | hearing or deaf in one or both ears?: NLegally blind in one or both | | eyes?: NSexual orientation: HeterosexualSmoke alarm in home: YSmoking | | Status: Current every day smokerSmoker (1 07/28 PPD)Has smoked since age: | | 25Passive smoke exposure?: YChewing tobacco: noneTobacco-years of use: | | 25Seat belts used routinely: YSunscreen used routinely: NIs the | | patient ambulatory?: Yes: limited self-mobility with assistive | | device(s); generally relies on wheeled mobilityTobacco cessation | | counseling provided?: YSurgical HistorySurgical History not reviewed | | (last reviewed 01/11/2018)* Cholecystectomy* Amputation - 02/25/2016 - | | LT leg amputation above the knee* Colonoscopy - 02/24/2014* Stent - | | 07/27/2006 - cardiac stent* delivery - 07/27/1975GYN | | HistoryGYN History not reviewed (last reviewed 01/11/2018)Most Recent | | Mammogram: (Notes: never had).Obstetric HistoryObstetric History not | | reviewed (last reviewed 01/11/2018)TOTAL: 3FULL: 3PRE:AB. I:AB. | | S:ECTOPICS:MULTIPLE:LIVINPast Medical HistoryPast Medical History | | not reviewed (last reviewed 01/11/2018)Other: Y - Dialysis from 02/2016 | | to 10/2016 with fistula in LT armStent: Y - cardiac stentNotes: Broke | | LT leg on 01/21/2016 and had internal fixation performed but after she | | was discharged, she was admitted back into the hospital 2 weeks later | | with severe infection. Her LT leg (from knee down) amputated 03/03/2016 | | from severe infection while in [facility].HPIBell's | | PalsyReported by patient.Location: no active infectionDuration: Andie | | states that her symptoms lasted a week before improving-still a little | | right sided facial weaknessOnset/Timing: gone nowContext: not related | | to traumaModifying Factors: medicationROSConstitutional: | | Constitutional: no significant weight gain or loss and no | | fever.Cardiovascular: Cardiovascular: no chest pain.Respiratory: | | Respiratory: no shortness of breath.Integumentary: Skin: see | | hpi.Neurologic: Neurologic: weakness (right face).ROS as noted in the | | HPIPhysical ExamPatient is a 67-year-old female.Constitutional: General | | Appearance: well-nourished and well-developed. Level of Distress: | | chronically ill. Ambulation: in wheelchair.Psychiatric: Mental Status: | | active and alert.Eyes: Pupils: PERRLA. EOM: EOMI.ENMT: Ears: no lesions | | on external ear and TMs clear. Hearing: no hearing loss.Lungs: | | Auscultation: decreased breath sounds.Cardiovascular: Heart | | Auscultation: RRR and CARLIE (3/6).Abdomen: Bowel Sounds: normal. | | Inspection and Palpation: soft.Musculoskeletal:: Extremities: left BKA, | | RLE with 2+ edema up into thigh.Neurologic: Sensation Right Foot: | | right facial weakness with + [place] sign-improved.Skin: Lesion Type: | | location: RLE. Color: pink. Location/Description: well demarcated. | | Infectious signs: no warmth, swelling, tenderness, fluctuance, | | induration, or lymphangitic streaking; serous drainage.Foot Exam:: | | Right Foot: right foot toes were examined and digital hair absent | | right; Marked swelling and loss of sensation. Left Foot: | | amputated.Assessment / Plan1. Ocasio's palsy -improved. Has finashed | | meds. Cont to patch eye at night and artificial umqedD58.0: Ocasio's | | palsy2. Fracture of mandible -S02.609A: Fracture of mandible, | | unspecified, initial encounter for closed fractureReturn to Office* | | NURSE for Eye exam at [facility] on 02/01/2018 at 10:15 | | AM* JONO RHOADES DO for ANY 15 at [facility] on | | 02/16/2018 at 11:15 AM* to see JONO RHOADES DO at [facility] on or around 02/17/2018* TRAVIS OMALLEY for Wellness | | Visit 30 at [facility] on 03/31/2018 at 10:00 AMEncounter | | Sign-OffEncounter signed-off by JONO RHOADES DO, 01/20/2018. | + + + + + + +---+ + | OUTPATIEN | Admitter: | [place] | | | [facility] | | T | SHARI | Family | 8 | | r | | | AALIYAH | Medicine | 12:20:00 | | Physician | | | | | PM CDT | | s [facility] | | | | | | | [place] | | | | | | | [place] | + + + + +---+ + | Outpatien | Attender: | [facility] | [facility] | Jono | | 8 | | r | | | JfAdm | Medicine | 11:09:00 | | Physician | | | itter: | | AM CDT - | | s Hot | | | SHARI | | | | [place] | | | AALIYAH | | 8 | | [place] | | | | | 01:13:00 | | | | | | | PM CDT | | | + + + + +---+ + + + | PatientName : ANDIE BEAN (67yo, F) ID# [id number]. Date/Time : | | 01/11/2018 10:15AMDOB : ervice Dept. : [facility] | | MedicineProvider : Burke SOFIAMed Primary: UNITED | | HEALTHCARE (MEDICARE REPLACEMENT/ADVANTAGE - PPO)Insurance # : | | [id number]/Group # : [id number]: [id number] - Member is eligible. | | detailsChief ComplaintPatient presents with RT sided weakness.Patient's | | Care TeamNurse Practitioner: SHARI DURHAM CNSPrimary Care Provider: | | JONO RHOADES [facility] - | | [place] ([place]): [address], [place] [address], , | | VitalsHt:5 ft 5 in (165.1 cm) 01/11/2018 10:30 | | amWt:237.6 lbs (107.77 kg) 01/11/2018 10:30 amBMI:39.5 01/11/2018 10:30 | | amBP:122/68 sitting R arm 01/11/2018 10:30 [id number]:96% Room Air at | | Rest 01/11/2018 10:30 amPain Scale:5 01/11/2018 10:31 amPulse:75 bpm | | 01/11/2018 10:31 amRR:12 01/11/2018 10:31 amT:97.8 F? ear (36.56 C) | | 01/11/2018 10:31 amAllergiesReviewed AllergiesPRAVACHOL: Myalgias | | (muscle pain), Other - FatigueMedicationsReviewed MedicationsName: | | acyclovir 800 mg tablet Take 1 tablet(s) 5 times a day by oral route | | for 10 days.Date: 01/11/18 prescribedSource: Ellen SOFIA: | | Anoro Ellipta 62.5 mcg-25 mcg/actuation powder for inhalation PRNDate: | | 10/19/17 filledSource: PRESCRIPTION SOLUTIONSName: aspirin 325 mg | | tablet Take 1 tablet(s) every day by oral route in the morning.Date: | | 11/09/17 enteredSource: Irais ColulaName: atorvastatin 20 mg tablet | | Take 1 tablet(s) every day by oral route., start 08/27/2017Date: | | 08/27/17 filledSource: PADMINI ALLEN CNPName: Coreg 6.25 mg tablet | | Take 1 tablet(s) twice a day by oral route.Date: 10/20/17 | | renewedSource: Ellen SOFIA: furosemide 40 mg tablet Take 1 | | tablet(s) twice a day by oral route.Date: 12/28/17 filledSource: | | PRESCRIPTION SOLUTIONSName: gabapentin 600 mg tablet Take 2 tablet(s) 3 | | times a day by oral route.Date: 12/30/17 filledSource: PRESCRIPTION | | SOLUTIONSName: HumaLOG KwikPen (U-100) Insulin 100 unit/mL subcutaneous | | sliding scale with 5 units being most injected PRNDate: 06/01/17 | | filledSource: PRESCRIPTION SOLUTIONSName: HYDROcodone 10 | | mg-acetaminophen 325 mg tablet 1/2 -1 po TID prn painDate: 12/28/17 | | filledSource: PRESCRIPTION SOLUTIONSName: Lantus U-100 Insulin 100 | | unit/mL subcutaneous solution 10 units subq dailyDate: 12/08/17 | | filledSource: PRESCRIPTION SOLUTIONSName: Medrol (Brown) 4 mg tablets in | | a dose pack Take 1 dose pk(s) by oral route.Date: 01/11/18 | | prescribedSource: Ellen SOFIA: Miacalcin 200 unit/Actuation | | nasal soln Take by nasal route.Date: 11/09/17 enteredSource: Irais | | ColulaName: ProAir HFA 90 mcg/actuation aerosol inhaler Inhale 2 | | puff(s) every 4 hours by inhalation route.Date: 08/27/17 | | filledSource: PRESCRIPTION SOLUTIONSName: silver sulfadiazine 1 % | | topical creamDate: 08/13/17 filledSource: PRESCRIPTION SOLUTIONSName: | | TRUEplus Pen Needle 31 gauge x 10/09"Date: 03/03/17 filledSource: | | PRESCRIPTION SOLUTIONSVaccinesReviewed VaccinesInfluenzaVaccine Type: | | influenza, high dose seasonalDate: 06/02/17mt.:Route:Site:Lot | | #:Mfr.:Exp. Date:Date on VIS:VIS Given:Account Solutions Analyst:Vaccine Type: | | influenza, injectable, quadrivalentDate: 06/02/17mt.:Route:Site: | | Deltoid, RightLot #: [id number].: SeqirusExp. Date: 01/23/18Date on | | VIS:VIS Given: 06/02/17Vaccinator:PneumococcalVaccine Type: | | pneumococcal conjugate PCV 13Date: 11/09/17Amt.: 0.5 mLRoute: | | IntramuscularSite: Deltoid, RightLot #: [id number].: Other | | manufacturerExp. Date: 09/25/19Date on VIS: 05/31/15VIS Given: | | 11/09/17Vaccinator: Meghan MolnairdVaccine Type: pneumococcal | | polysaccharide [id number]: 05/27/16Amt.:Route:Site:Lot #:Mfr.:Exp. | | Date:Date on VIS:VIS Given:Account Solutions Analyst:ProblemsReviewed Problems* | | Hepatitis C antibody test positive - Onset: 12/28/2017* Essential | | hypertension* Postmenopausal osteoporosis* Lumbar radiculopathy* | | Diabetic neuropathy* Low back pain* Cardiomyopathy - Onset: 2017* | | Stasis dermatitis - Onset: 2017* Mixed hyperlipidemia - Onset: | | 10/03/2017* Tobacco user - Onset: 10/03/2017* Type II diabetes mellitus | | uncontrolled - Onset: 10/03/2017* Amputated below knee - Onset: | | 10/03/2017* Chronic kidney disease stage 4 - Onset: 10/03/2017* Chronic | | obstructive lung disease - Onset: 08/27/2017Family HistoryReviewed | | Family HistoryBrother- Heart disease- all 3 of this- Type 2 | | diabetes mellitusMother- Pulmonary emphysema- Disorder of thyroid | | glandPaternal Grandmother- Malignant tumor of breastSister- Malignant | | tumor of breast- Type 2 diabetes mellitusSocial HistoryReviewed Social | | HistoryFamily MedicineAdvance directive: NEducation: 12Occupation: | | DisabledGeneral stress level: MediumGuns present in home: NAlcohol | | intake: NoneCaffeine intake: OccasionalIllicit drugs: NODiet: | | DiabeticExercise level: NoneHard of hearing or deaf in one or both | | ears?: NLegally blind in one or both eyes?: NSexual orientation: | | HeterosexualSmoke alarm in home: YSmoking Status: Current every day | | smokerSmoker (1 07/28 PPD)Has smoked since age: 25Passive smoke | | exposure?: YChewing tobacco: noneTobacco-years of use: 25Seat belts | | used routinely: YSunscreen used routinely: NIs the patient ambulatory?: | | Yes: limited self-mobility with assistive device(s); generally relies | | on wheeled mobilityTobacco cessation counseling provided?: YSurgical | | HistoryReviewed Surgical History* Cholecystectomy* Amputation - | | 02/25/2016 - LT leg amputation above the knee* Colonoscopy - | | 02/24/2014* Stent - 07/27/2006 - cardiac stent* delivery - | | 07/27/1975GYN 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 I:AB. S:ECTOPICS:MULTIPLE:LIVINPast Medical | | HistoryReviewed Past Medical HistoryOther: Y - Dialysis from 02/2016 to | | 10/2016 with fistula in LT armStent: Y - cardiac stentNotes: Broke LT | | leg on 01/21/2016 and had internal fixation performed but after she was | | discharged, she was admitted back into the hospital 2 weeks later with | | severe infection. Her LT leg (from knee down) amputated 03/03/2016 | | from severe infection while in [facility].HPIFallReported by | | patient.Location of Injury: head (RT side of head)Severity of Pain: | | moderateOnset/Timin weeks agoContext: fell from standing position | | (and hit pew at [place]); lost balance (due to prosthetic leg)Associated | | Symptoms: no loss of consciousness; no memory loss; no | | numbness/tingling; hit head (on RT side); facial numbness/weakness; | | muscle weakness; headache; visual disturbance/loss right; | | aphasiaAlleviating Factors: nothing gives reliefAggravating Factors: | | nothing makes it worsePatient presents with RT sided weakness affecting | | face only. The RT side of her mouth is drooping, RT sided headache, | | cannot close her RT eye, and her speech is slurred. She fell 2 weeks | | ago but these symptoms did not appear until 1 week | | ago.ROSConstitutional: Constitutional: no significant weight gain or | | loss and no fever.Cardiovascular: Cardiovascular: no chest | | pain.Respiratory: Respiratory: no shortness of breath.Integumentary: | | Skin: see hpi.Neurologic: Neurologic: weakness (right face).ROS as | | noted in the HPIPhysical ExamPatient is a 67-year-old | | female.Constitutional: General Appearance: well-nourished and | | well-developed. Level of Distress: chronically ill. Ambulation: in | | wheelchair.Psychiatric: Mental Status: active and alert.Eyes: Pupils: | | PERRLA. EOM: EOMI.ENMT: Ears: no lesions on external ear and TMs clear. | | Hearing: no hearing loss.Lungs: Auscultation: decreased breath | | sounds.Cardiovascular: Heart Auscultation: RRR and CARLIE (3/).Abdomen: | | Bowel Sounds: normal. Inspection and Palpation: soft.Musculoskeletal:: | | Extremities: left BKA, RLE with 2+ edema up into thigh.Neurologic: | | Sensation Right Foot: right facial weakness with + [place] sign.Skin: | | Lesion Type: location: RLE. Color: pink. Location/Description: well | | demarcated. Infectious signs: no warmth, swelling, tenderness, | | fluctuance, induration, or lymphangitic streaking; serous drainage.Foot | | Exam:: Right Foot: right foot toes were examined and digital hair | | absent right; Marked swelling and loss of sensation. Left Foot: | | amputated.Procedure DocumentationCare Coordination- Initial Visit:Per | | provider suggestion, patient received care coordination due to | | diagnosis identified.Assessment / Plan1. Ocasio's palsy -Started on | | Acyclovir 800mg tab & sent straight from clinic to [facility] for CT Head w/o | | contrast.Follow up x 1 week. Tape eye shut at night. Artificil | | tearsNot a chronic problem at this time so not included in Care | | PlanG51.0: Ocasio's palsy* OCASIO'S PALSY: CARE INSTRUCTIONS* Medrol (Brown) | | 4 mg tablets in a dose pack -Take 1 dose pk(s) by oral route. Qty: 1 | | dose pk(s) Refills: 0 Pharmacy: [facility]* | | acyclovir 800 mg tablet -Take 1 tablet(s) 5 times a day by oral route | | for 10 days. Qty: 25 tablet(s) Refills: 0 Pharmacy: [facility] [place] [facility]* CT, HEAD, W/O CONTRAST -Note to Imaging Facility: | | Keep & Call Results to Dr Rhoades @ [phone]. Essential | | hypertension -This care plan was designed by your provider to assist in | | improving your overall health and well being.Assessment: | | HypertensionCondition Status: StableGOALS for better health: achieve | | healthy weight, be more active, lower blood pressure, lower | | cholesterol, stress reduction, and modify eating habits.WEIGHT should | | be monitored to achieve optimal health.EXERCISE is an important factor | | to attaining optimal health.NUTRITION Your provider advises lowering | | salt levels in your diet: limit packaged foods like pretzels, chips, | | pickled foods, cured meats like hawley and salami, canned soups, | | cheeses, and soy sauce. Limiting foods that taste sweet including: | | soda, candy, cake, pie, jam, canned fruit in syrup and cookies, | | limiting foods high in fat like processed meats (sausage), nuts, | | cheeses, butter, and packaged foods with hydrogenated oils. Limit foods | | high in carbs like baked goods, low fat packaged foods, potatoes, | | pizza, and sugary cereals.BLOOD PRESSURE your provider recommends 140 | | or below systolic and 90 or below diastolic as your goal BP. Be sure to | | check your BP with your home blood pressure monitor and record your | | readings in a journal to take to your doctor visits for them to be | | reviewed by your physician.REMINDERS: Perform routine monitoring of | | your blood pressure, regular exercise, take all medications as | | prescribed, and try your best not to miss any doses. Continue to have | | fasting blood work performed every 3-6 months as directed by your | | physician and schedule any necessary follow up appointments. Report any | | new or worsening symptoms to your physician.Follow up: 6 [id number]: | | Essential (primary) hypertension* HIGH BLOOD PRESSURE: CARE | | INSTRUCTIONS* LEARNING ABOUT HIGH BLOOD PRESSURE3. Postmenopausal | | osteoporosis -This care plan was designed by your provider to assist in | | improving your overall health and well being.Assessment: | | Postmenopausal OsteoporosisCondition Status: StableGOALS for better | | health: achieve healthy weight, be more active, lower blood pressure, | | lower cholesterol, and modify eating habits.WEIGHT should be monitored | | to achieve optimal health.EXERCISE is an important factor to attaining | | optimal health.NUTRITION Your provider advises lowering salt levels in | | your diet: limit packaged foods like pretzels, chips, pickled foods, | | cured meats like hawley and salami, canned soups, cheeses, and soy | | sauce. Limiting foods that taste sweet including: soda, candy, cake, | | pie, jam, canned fruit in syrup and cookies, limiting foods high in fat | | like processed meats (sausage), nuts, cheeses, butter, and packaged | | foods with hydrogenated oils. Limit foods high in carbs like baked | | goods, low fat packaged foods, potatoes, pizza, and sugary | | cereals.BLOOD PRESSURE your provider recommends 140 or below systolic | | and 90 or below diastolic as your goal BP.RECOMMENDATIONS given | | include: continue to have Bone Density test performed every 2 years, | | perform weight-bearing exercise (i.e. walking) 3-5 days a week for at | | least 30 mins at a time, Vitamin D supplementation, avoid alcohol, take | | medications as directed by your physician trying not to miss any | | doses, follow up with physician as directed, and report any new or | | worsening symptoms to your physician as soon as possible.Follow up: 6 | | kxspdkK00.0: Age-related osteoporosis without current pathological | | fracture4. Lumbar radiculopathy -This care plan was designed by your | | provider to assist in improving your overall health and well | | being.Assessment: Lumbar RadiculopathyCondition Status: StableGOALS for | | better health: achieve healthy weight, be more active, improve | | mobility, lower blood pressure, lower cholesterol, and modify eating | | habits.WEIGHT should be monitored to achieve optimal health.EXERCISE is | | an important factor to attaining optimal health.CARDIO at low | | intensity. Some examples of low intensity exercise include: walking, | | swimming, and stretching.NUTRITION Your provider advises staying | | hydrated. The [place] of Medicine determined men need roughly 3 | | liters (about 13 cups) of total beverages per day and women need about | | 2.2 liters (about 9 cups) of total beverages per day. Your provider | | also advises lowering salt levels in your diet: limit packaged foods | | like pretzels, chips, pickled foods, cured meats like hawley and salami, | | canned soups, cheeses, and soy sauce. Limiting foods that taste sweet | | including: soda, candy, cake, pie, jam, canned fruit in syrup and | | cookies, limiting foods high in fat like processed meats (sausage), | | nuts, cheeses, butter, and packaged foods with hydrogenated oils. Limit | | foods high in carbs like baked goods, low fat packaged foods, | | potatoes, pizza, and sugary cereals.BLOOD PRESSURE your provider | | recommends 140 or below systolic and 90 or below diastolic as your goal | | BP.REMINDERS: Alternate heat & ice as needed for pain, rest when | | necessary, try not to exceed your limitations, exercise when possible, | | and take medication as prescribed, try your best not to miss any doses. | | Try to get the recommended amount of sleep which is 7-8 hours per | | night.Follow up: 3 [id number]: Radiculopathy, lumbar region5. | | Diabetic neuropathy -This care plan was designed by your provider to | | assist in improving your overall health and well being.Assessment: | | Diabetic NeuropathyCondition Status: StableGOALS for better health: | | achieve healthy weight, be more active, lower blood pressure, lower | | cholesterol, and modify eating habits. Many things can cause numbness | | or tingling. Swelling may put pressure on a nerve. This could cause you | | to lose feeling or have a njdv-mml-tlgaojo sensation on part of your | | body. Nerves may be damaged from trauma, toxins, or diseases, such as | | diabetes or multiple sclerosis (MS). Sometimes, though, the cause is | | not clear. If there is no clear reason for your symptoms, and you are | | not having any other symptoms, your doctor may suggest watching and | | waiting for a while to see if the numbness or tingling goes away on its | | own. Your doctor may want you to have blood or nerve tests to find the | | cause of your symptoms.WEIGHT should be monitored to achieve optimal | | health.EXERCISE is an important factor to attaining optimal | | health.NUTRITION Your provider advises lowering salt levels in your | | diet: limit packaged foods like pretzels, chips, pickled foods, cured | | meats like hawley and salami, canned soups, cheeses, and soy sauce. | | Limiting foods that taste sweet including: soda, candy, cake, pie, jam, | | canned fruit in syrup and cookies, limiting foods high in fat like | | processed meats (sausage), nuts, cheeses, butter, and packaged foods | | with hydrogenated oils. Limit foods high in carbs like backed goods, | | low fat packaged foods, potatoes, pizza, and sugary cereals.REMINDERS: | | Follow-up care is a fung part of your treatment and safety. Be sure to | | make and go to all appointments, and call your doctor if you are having | | problems. It's also a good idea to know your test results and keep a | | list of the medicines you take.If your doctor prescribes medicine, take | | it exactly as directed. Call your doctor if you think you are having a | | problem with your medicine. If you have any swelling, put ice or a | | cold pack on the area for 10 to 20 minutes at a time. Put a thin cloth | | between the ice and your skin. Continue to have fasting blood work | | performed every 3-6 months as directed by your physician.Follow up: 6 | | [id number]: Type 2 diabetes mellitus with diabetic neuropathy, | | unspecified6. Low back pain -This care plan was designed by your | | provider to assist in improving your overall health and well | | being.Assessment: Chronic Low Back PainCondition Status: StableGOALS | | for better health: achieve healthy weight, be more active, improve | | mobility, lower blood pressure, lower cholesterol, and modify eating | | habits.WEIGHT should be monitored to achieve optimal health.EXERCISE is | | an important factor to attaining optimal health.CARDIO at low | | intensity. Some examples of low intensity exercise include: walking, | | swimming, and stretching.NUTRITION Your provider advises staying | | hydrated. The [place] [employer] determined men need roughly 3 | | liters (about 13 cups) of total beverages per day and women need about | | 2.2 liters (about 9 cups) of total beverages per day. Your provider | | also advises lowering salt levels in your diet: limit packaged foods | | like pretzels, chips, pickled foods, cured meats like hawley and salami, | | canned soups, cheeses, and soy sauce. Limiting foods that taste sweet | | including: soda, candy, cake, pie, jam, canned fruit in syrup and | | cookies, limiting foods high in fat like processed meats (sausage), | | nuts, cheeses, butter, and packaged foods with hydrogenated oils. Limit | | foods high in carbs like baked goods, low fat packaged foods, | | potatoes, pizza, and sugary cereals.BLOOD PRESSURE your provider | | recommends 140 or below systolic and 90 or below diastolic as your goal | | BP.REMINDERS: Alternate heat & ice as needed for pain, rest when | | necessary, try not to exceed your limitations, exercise when possible, | | and take medication as prescribed, try your best not to miss any doses. | | Try to get the recommended amount of sleep which is 7-8 hours per | | night.Follow up: 3 xviqesI75.5: Low back pain* BACK CARE AND PREVENTING | | INJURIES: CARE INSTRUCTIONS* GETTING BACK TO NORMAL AFTER LOW BACK | | PAIN: CARE INSTRUCTIONS* LEARNING ABOUT RELIEF FOR BACK PAIN7. | | Cardiomyopathy -This care plan was designed by your provider to assist | | in improving your overall health and well being.Assessment: | | CardiomyopathyCondition Status: StableGOALS for better health: achieve | | healthy weight, be more active, lower blood pressure, lower | | cholesterol, stress reduction, and modify eating habits.WEIGHT should | | be monitored to achieve optimal health.EXERCISE is an important factor | | to attaining optimal health.CARDIO at low intensity. Examples of low | | intensity exercise include: walking, swimming, and stretching.NUTRITION | | Your provider advises lowering salt levels in your diet: limit | | packaged foods like pretzels, chips, pickled foods, cured meats like | | hawley and salami, canned soups, cheeses, and soy sauce. Limiting foods | | that taste sweet including: soda, candy, cake, pie, jam, canned fruit | | in syrup and cookies, limiting foods high in fat like processed meats | | (sausage), nuts, cheeses, butter, and packaged foods with hydrogenated | | oils. Limit foods high in carbs like baked goods, low fat packaged | | foods, potatoes, pizza, and sugary cereals.BLOOD PRESSURE your provider | | recommends 140 or below systolic and 90 or below diastolic as your | | goal BP. Be sure to check your BP with your home blood pressure monitor | | and record your readings in a journal to take to your doctor visits | | for them to be reviewed by your physician.REMINDERS: Perform routine | | monitoring of your blood pressure, regular exercise, take all | | medications as prescribed, and try your best not to miss any doses. | | Continue to have fasting blood work performed every 3-6 months as | | directed by your physician and schedule any necessary follow up | | appointments. Report any new or worsening symptoms to your | | physician.Follow up: 6 [id number]: Cardiomyopathy, unspecified8. Mixed | | hyperlipidemia -Medications are reviewed with patient. Any issues | | where discussed. No current changes are made at this timeThis care plan | | was designed by your provider to assist in improving your overall | | health and well being.Assessment: HyperlipidemiaCondition Status: | | StableGOALS for better health: achieve healthy weight, be more active, | | lower blood pressure, lower cholesterol, and modify eating | | habits.WEIGHT should be monitored to achieve optimal health.EXERCISE is | | an important factor to attaining optimal health.NUTRITION Your | | provider advises lowering salt levels in your diet: limit packaged | | foods like pretzels, chips, pickled foods, cured meats like hawley and | | salami, canned soups, cheeses, and soy sauce. Limiting foods that taste | | sweet including: soda, candy, cake, pie, jam, canned fruit in syrup | | and cookies, limiting foods high in fat like processed meats (sausage), | | nuts, cheeses, butter, and packaged foods with hydrogenated oils. | | Limit foods high in carbs like backed goods, low fat packaged foods, | | potatoes, pizza, and sugary cereals.REMINDERS: Continue to have fasting | | blood work performed every 3-6 months as directed by your physician. | | Take your medications as directed by your physician trying your best | | not to miss any doses and schedule any necessary follow up | | appointments.Follow up: 6 tvizgeE41.2: Mixed hyperlipidemia9. Tobacco | | user -This care plan was designed by your provider to assist in | | improving your overall health and well being.Assessment: | | HyperlipidemiaCondition Status: StableGOALS for better health: achieve | | healthy weight, be more active, lower blood pressure, lower | | cholesterol, and modify eating habits.WEIGHT should be monitored to | | achieve optimal health.EXERCISE is an important factor to attaining | | optimal health.NUTRITION Your provider advises lowering salt levels in | | your diet: limit packaged foods like pretzels, chips, pickled foods, | | cured meats like hawley and salami, canned soups, cheeses, and soy | | sauce. Limiting foods that taste sweet including: soda, candy, cake, | | pie, jam, canned fruit in syrup and cookies, limiting foods high in fat | | like processed meats (sausage), nuts, cheeses, butter, and packaged | | foods with hydrogenated oils. Limit foods high in carbs like backed | | goods, low fat packaged foods, potatoes, pizza, and sugary cereals.How | | can you care for yourself at home?* Ask your family, friends, and | | coworkers for support. You have a better chance of quitting if you have | | help and support.* Join a support group, such as Nicotine Anonymous, | | for people who are trying to quit smoking.* Consider signing up for a | | smoking cessation program, such as the [place] [employer]'s | | [place] from Smoking program.* Set a quit date. Pick your date | | carefully so that it is not right in the middle of a big deadline or | | stressful time. Once you quit, do not even take a puff. Get rid of all | | ashtrays and lighters after your last cigarette. Clean your house and | | your clothes so that they do not smell of smoke.* Learn how to be a | | nonsmoker. Think about ways you can avoid those things that make you | | reach for a cigarette.* Avoid situations that put you at greatest risk | | for smoking. For some people, it is hard to have a drink with friends | | without smoking. For others, they might skip a coffee break with | | coworkers who smoke.* Change your daily routine. Take a different route | | to work or eat a meal in a different place.* Cut down on stress. Calm | | yourself or release tension by doing an activity you enjoy, such as | | reading a book, taking a hot bath, or gardening.* Talk to your doctor | | or pharmacist about nicotine replacement therapy, which replaces the | | nicotine in your body. You still get nicotine but you do not use | | tobacco. Nicotine replacement products help you slowly reduce the | | amount of nicotine you need. These products come in several forms, many | | of them available [id number]:* Nicotine patches* Nicotine gum | | and lozenges* Nicotine inhaler* Ask your doctor about bupropion | | (Wellbutrin) or varenicline (Chantix), which are prescription | | medicines. They do not contain nicotine. They help you by reducing | | withdrawal symptoms, such as stress and anxiety.* Some people find | | hypnosis, acupuncture, and massage helpful for ending the smoking | | habit.* Eat a healthy diet and get regular exercise. Having healthy | | habits will help your body move past its craving for nicotine.* Be | | prepared to keep trying. Most people are not successful the first few | | times they try to quit. Do not get mad at yourself if you smoke again. | | Make a list of things you learned and think about when you want to try | | again, such as next week, next month, or next year.* * REMINDERS: | | Continue to have fasting blood work performed every 3-6 months as | | directed by your physician. Take your medications as directed by your | | physician trying your best not to miss any doses and schedule any | | necessary follow up appointments.Follow up: 6 ojtdpzH12.0: Tobacco use* | | STOPPING SMOKING: CARE [id number]. Type II diabetes mellitus | | uncontrolled -Medications are reviewed with patient. Any issues where | | discussed. No current changes are made at this timeThis care plan was | | designed by your provider to assist in improving your overall health | | and well being.Assessment: Type 2 DM, UncontrolledCondition Status: | | StableGOALS for better health: achieve healthy weight, be more active, | | improve mobility, lower blood pressure, lower cholesterol, and modify | | eating habits.WEIGHT should be monitored to achieve optimal | | health.EXERCISE is an important factor to attaining optimal | | health.CARDIO at low intensity. Examples of low intensity exercise | | include: walking, swimming, and stretching.NUTRITION Your provider | | advises lowering salt levels in your diet: limit packaged foods like | | pretzels, chips, pickled foods, cured meats like hawley and salami, | | canned soups, cheeses, and soy sauce. Limiting foods that taste sweet | | including: soda, candy, cake, pie, jam, canned fruit in syrup and | | cookies, limiting foods high in fat like processed meats (sausage), | | nuts, cheeses, butter, and packaged foods with hydrogenated oils. Limit | | foods high in carbs like baked goods, low fat packaged foods, | | potatoes, pizza, and sugary cereals.BLOOD PRESSURE your provider | | recommends 140 or below systolic and 90 or below diastolic as your goal | | BP.RECOMMENDATIONS: Instructed in the correct use of a glucometer, | | advised to check fasting glucose once daily, follow a low cholesterol | | diet, get yearly flu shots before flu season, stay current on your | | other immunizations such as pneumonia (Pneumo 23 and Prevnar 13) & | | shingles (Shingrix), perform routine monitoring of your blood pressure | | with your home blood pressure cuff, exercise regularly, take medication | | as prescribed, and try your best not to miss any medication doses. | | Continue to have your HgA1c checked every 3 months and fasting blood | | work performed every 3-6 months as directed by your physician and | | schedule any necessary follow up appointments.Follow up: 6 | | tlospbD27.65: Type 2 diabetes mellitus with hyperglycemia* TYPE 2 | | DIABETES: CARE [id number]. Amputated below knee -This care plan was | | designed by your provider to assist in improving your overall health | | and well being.Assessment: Amputated Below kneeCondition Status: | | StableGOALS for better health: achieve healthy weight, be more active, | | lower blood pressure, lower cholesterol, and modify eating | | habits.WEIGHT should be monitored to achieve optimal health.EXERCISE is | | an important factor to attaining optimal health.NUTRITION Your | | provider advises lowering salt levels in your diet: limit packaged | | foods like pretzels, chips, pickled foods, cured meats like hawley and | | salami, canned soups, cheeses, and soy sauce. Limiting foods that taste | | sweet including: soda, candy, cake, pie, jam, canned fruit in syrup | | and cookies, limiting foods high in fat like processed meats (sausage), | | nuts, cheeses, butter, and packaged foods with hydrogenated oils. | | Limit foods high in carbs like backed goods, low fat packaged foods, | | potatoes, pizza, and sugary cereals.REMINDERS: Continue to have fasting | | blood work performed every 3-6 months as directed by your physician. | | Take your medications as directed by your physician trying your best | | not to miss any doses and schedule any necessary follow up | | appointments.Follow up: 6 [id number]: Acquired absence of | | unspecified leg below knee12. Chronic kidney disease stage 4 -This care | | plan was designed by your provider to assist in improving your overall | | health and well being.Assessment: Chronic Kidney Disease Stage | | 4Condition Status: StableGOALS for better health: achieve healthy | | weight, be more active, lower blood pressure, lower cholesterol, stress | | reduction, and modify eating habits. If you are a smoker, your | | physician highly recommends you to STOP smoking. If you need help with | | quitting and smoking cessation, talk to your physician in regards to | | the best options for you.WEIGHT should be monitored to achieve optimal | | health.EXERCISE is an important factor to attaining optimal | | health.CARDIO at low intensity. Examples of low intensity exercise | | include: walking, swimming, and stretching.NUTRITION Your provider | | advises lowering salt levels in your diet: limit packaged foods like | | pretzels, chips, pickled foods, cured meats like hawley and salami, | | canned soups, cheeses, and soy sauce. Limiting foods that taste sweet | | including: soda, candy, cake, pie, jam, canned fruit in syrup and | | cookies, limiting foods high in fat like processed meats (sausage), | | nuts, cheeses, butter, and packaged foods with hydrogenated oils. Limit | | foods high in carbs like baked goods, low fat packaged foods, | | potatoes, pizza, and sugary cereals.BLOOD PRESSURE your provider | | recommends 140 or below systolic and 90 or below diastolic as your goal | | BP. Be sure to check your BP with your home blood pressure monitor and | | record your readings in a journal to take to your doctor visits for | | them to be reviewed by your physician.REMINDERS: Check your body, | | especially legs/ankles for excess swelling (edema) and report it to | | your doctor, check your weight daily and record it in your journal to | | take with you to your doctor visits so it can be reviewed with you, | | perform routine monitoring of your blood pressure, decrease salt | | intake, regular exercise (at least 3-5 days per week and 30-45 mins per | | session), inform all physicians along with health career law clerk | | involved in your health care of your chronic kidney disease diagnosis, | | take all medications as prescribed, and try your best not to miss any | | doses. Continue to have fasting blood work performed every 3-6 months | | as directed by your physician and schedule any necessary follow up | | appointments. Report any new or worsening symptoms to your | | physician.Follow up: 3 butfibY97.4: Chronic kidney disease, stage 4 | | (severe)13. Chronic obstructive lung disease -This care plan was | | designed by your provider to assist in improving your overall health | | and well being.Assessment: Chronic Obstructive Pulmonary Disease | | (COPD)Condition Status: StableGOALS for better health: achieve healthy | | weight, be more active, lower blood pressure, lower cholesterol, stress | | reduction, modify eating habits, and if you smoke, your physician | | highly advises you to QUIT SMOKING. If you need extra help with smoking | | cessation, talk to your physician regarding your options. COPD puts a | | heavy strain on your body which makes you more vulnerable to infections | | so it is of the utmost importance to stay current with your | | immunizations such as your yearly flu shot, pneumonia (Pneumo 23 & | | Prevnar 13), and shingles (Shingrix).WEIGHT should be monitored to | | achieve optimal health.EXERCISE is an important factor in obtaining | | your optimal health.NUTRITION Your provider advises a low sodium diet | | so it is very important to lower the salt levels in your diet. Limit | | packaged foods like pretzels, chips, pickled foods, cured meats like | | hawley and salami, canned soups, cheeses, and soy sauce. Excess sugar is | | not good for your overall health. Limit foods that taste sweet | | including: soda, candy, cake, pie, jam, canned fruit in syrup and | | cookies, limiting foods high in fat like processed meats (sausage), | | nuts, cheeses, butter, and packaged foods with hydrogenated oils. It is | | also very important to limit foods high in carbs like baked goods, low | | fat packaged foods, potatoes, pizza, and sugary cereals to obtain your | | optimal health.BLOOD PRESSURE your provider recommends 140 or below | | systolic and 90 or below diastolic as your goal BP. Be sure to check | | your BP with your home blood pressure monitor and record your readings | | in a journal to take to your doctor visits for them to be reviewed by | | your physician.REMINDERS: Try your best to avoid cold, hot, or humid | | weather and avoid breathing dust, fumes, perfumes/cologne and smoke | | because your COPD symptoms may be worsened (exacerbated). Exercise on a | | regular basis when your physically able to, take all your medication | | (including your inhalers and nebulizer treatments) as prescribed by | | your physician, and try your best not to miss any doses. Continue to | | have fasting blood work performed every 3-6 months as directed by your | | physician and schedule any necessary follow up appointments. Report any | | new or worsening symptoms to your physician.Follow up: 6 brqgtfF43.9: | | Chronic obstructive pulmonary disease, unspecified* CHRONIC OBSTRUCTIVE | | PULMONARY DISEASE (COPD): CARE INSTRUCTIONS* LEARNING ABOUT COPD AND | | HOW TO PREVENT LUNG [id number]. Fracture of mandible -Radiologist | | called with Ct head report--brain ok but she has a non disolaced | | fracture of right mandible. She is not having any pain hereS02.609A: | | Fracture of mandible, unspecified, initial encounter for closed | | fractureReturn to Office* JONO RHOADES DO for FOLLOW UP 15 at | | [facility] on 01/18/2018 at 03:45 PM* JONO RHOADES DO | | for ANY 15 at [facility] on 02/08/2018 at 10:00 | | AMEncounter Sign-OffEncounter signed-off by JONO RHOADES DO, | | 01/13/2018. | + + + +---+ + +---+ + | Inpatient | | [id number] | | | [facility] | | | | [phone] | 8 | | [facility] | | | | 325 | 03:38:08 | | Clinic | | | | | PM CDT | | Family | | | | | | | Medicine | | | | | | | - | | | | | | | [place] | | | | | | | [facility]aman | + +---+ + +---+ + + + | Called pharmacy---states pt has been seeing Dr Rhoades and zoe this | | filled athis office | + + + +---+ + +---+ + | Outpatien | | [facility] | | | [facility] | | t | | [facility]- | 7 | | [facility] | | | | [facility] | 05:14:09 | | Clinic | | | | [facility] | PM CDT | | Family | | | | | | | Medicine | | | | | | | - | | | | | | | [place] | | | | | | | raman | + +---+ + +---+ + + + | AGE TIME PATIENT REPORTED: 66FACILITY / VISIT TYPE: [id number] | + + + + + + +---+ + | Outpatien | Referrer: | [facility] | | | [facility] | | t | DR MENDEZ | [facility]- | 7 | | [facility] | | | ARTI PEDROZA | [phone] | 06:05:10 | | Clinic | | | | 5 | PM CDT | | Family | | | | | | | Medicine | | | | | | | - | | | | | | | [place] | | | | | | | raman | + + + + +---+ + + + | AGE TIME PATIENT REPORTED: 66FACILITY / VISIT TYPE: [id number] | | COMPLAINT:FIND:PT:PATIENT:NOM:REPORTED:[id number]: CHIEF | | COMPLAINT:FIND:PT:PATIENT:NOM:REPORTED: N18.6 | + + + +---+ + +---+ + | Outpatien | | [facility] | | | [facility] | | t | | [facility]- | 7 | | [facility] | | | | [facility] | 09:50:30 | | Clinic | | | | [facility] | AM CDT | | Family | | | | | | | Medicine | | | | | | | - | | | | | | | [place] | | | | | | | raman | + +---+ + +---+ + + + | AGE TIME PATIENT REPORTED: 66FACILITY / VISIT TYPE: [id number] | + + + +---+ + +---+ + | Outpatien | | [facility] | | | [facility] | | t | | [facility]- | 7 | | [facility] | | | | [facility] | 12:16:34 | | Clinic | | | | [facility] | PM CDT | | Family | | | | | | | Medicine | | | | | | | - | | | | | | | [place] | | | | | | | raman | + +---+ + +---+ + + + | AGE TIME PATIENT REPORTED: 66FACILITY / VISIT TYPE: [id number] | + + + + + + +---+ + | Outpatien | Attender: | [id number] | | | [facility] | | t | [facility] | [phone] | 7 | | [facility] | | | MARTIN[facility] | 325 | 04:53:17 | | Hot | | | errer: | | PM CDT | | [facility] | | | [facility] | | | | [facility] | | | [facility] | | | | | + + + + +---+ + | Outpatien | Referrer: | [facility] | | | [facility] | | t | [place] | [facility]- | 7 | | [facility] | | | JE[facility] | [facility] | 09:02:31 | | Clinic | | | | [facility] | AM CDT | | Family | | | | | | | Medicine | | | | | | | - | | | | | | | [place] | | | | | | | raman | + + + + +---+ + + + | AGE TIME PATIENT REPORTED: 66FACILITY / VISIT TYPE: [id number] | | COMPLAINT:FIND:PT:PATIENT:NOM:REPORTED:[id number]: CHIEF | | COMPLAINT:FIND:PT:PATIENT:NOM:REPORTED:[id number]: CHIEF | | COMPLAINT:FIND:PT:PATIENT:NOM:REPORTED:[id number]: CHIEF | | COMPLAINT:FIND:PT:PATIENT:NOM:REPORTED: G54.6CHIEF | | COMPLAINT:FIND:PT:PATIENT:NOM:REPORTED: M79.602CHIEF | | COMPLAINT:FIND:PT:PATIENT:NOM:REPORTED: [id number] | | COMPLAINT:FIND:PT:PATIENT:NOM:REPORTED: N18.4CHIEF | | COMPLAINT:FIND:PT:PATIENT:NOM:REPORTED: Z79.4CHIEF | | COMPLAINT:FIND:PT:PATIENT:NOM:REPORTED: E11.40 | + + + +---+ + +---+ + | Inpatient | | [id number] | | | [facility] | | | | [phone] | 7 | | [facility] | | | | 325 | 02:43:40 | | Hot | | | | | PM CDT | | [facility] | | [facility] | + +---+ + +---+ + | Inpatient | | [id number] | | | [facility] | | | | [phone] | 7 | | [facility] | | | | 325 | 01:06:30 | | Hot | | | | | PM CDT | | [facility] | | | | | [facility] | + +---+ + +---+ + | Outpatien | | [facility] | | | [facility] | | t | | [facility]- | 7 | | [facility] | | | | [facility] | 01:16:27 | | Clinic | | | | [facility] | PM CDT | | Family | | | | | | | Medicine | | | | | | | - | | | | | | | [place] | | | | | | | raman | + +---+ + +---+ + + + | AGE TIME PATIENT REPORTED: 66FACILITY / VISIT TYPE: [id number] | | COMPLAINT:FIND:PT:PATIENT:NOM:REPORTED:[id number]: | + + + +---+ + +---+ + | Outpatien | | [facility] | | | [facility] | | t | | [facility]- | 7 | | [facility] | | | | [facility] | 03:29:23 | | Clinic | | | | [facility] | PM CDT | | Family | | | | | | | Medicine | | | | | | | - | | | | | | | [facility] | | | | | | | raman | + +---+ + +---+ + + + | AGE TIME PATIENT REPORTED: 66FACILITY / VISIT TYPE: [id number] | | COMPLAINT:FIND:PT:PATIENT:NOM:REPORTED:25782: | + + + + + + +---+ + | Outpatien | Referrer: | [facility] | | | [facility] | | t | [place] | [facility]- | 7 | | Ever | | | [place] | [facility] | 11:01:35 | | Clinic | | | | MURKEVIN | AM CDT | | Family | | | | | | | Medicine | | | | | | | - | | | | | | | [place] | | | | | | | raman | + + + + +---+ + + + | AGE TIME PATIENT REPORTED: 66FACILITY / VISIT TYPE: [id number] | | COMPLAINT:FIND:PT:PATIENT:NOM:REPORTED:48018: CHIEF | | COMPLAINT:FIND:PT:PATIENT:NOM:REPORTED:93285: CHIEF | | COMPLAINT:FIND:PT:PATIENT:NOM:REPORTED: [id number] | | COMPLAINT:FIND:PT:PATIENT:NOM:REPORTED: Z79.4CHIEF | | COMPLAINT:FIND:PT:PATIENT:NOM:REPORTED: E11.40CHIEF | | COMPLAINT:FIND:PT:PATIENT:NOM:REPORTED: M79.602CHIEF | | COMPLAINT:FIND:PT:PATIENT:NOM:REPORTED: F41.1CHIEF | | COMPLAINT:FIND:PT:PATIENT:NOM:REPORTED: E78.00 | + + + + + + +---+ + | Inpatient | Referrer: | [phone] | | | [facility] | | | [place] | [phone] | 7 | | [facility] | | | [place] | 325 | 11:01:35 | | Hot | | | | | AM CDT | | [facility] | | | | | | [facility] | + + + + +---+ + | Outpatien | | [facility] | | | [facility] | | t | | [facility]- | 7 | | [facility] | | | | [facility] | 10:34:03 | | Clinic | | | | M[facility]FS[facility] | AM CDT | | Family | | | | | | | Medicine | | | | | | | - | | | | | | | [place] | | | | | | | raman | + + + + +---+ + + + | AGE TIME PATIENT REPORTED: 65FACILITY / VISIT TYPE: [id number] | + + + +---+ + +---+ + | Outpatien | | [facility] | | | [facility] | | t | | [facility]- | 7 | | [facility] | | | | [facility] | 12:35:33 | | Clinic | | | | [facility] | PM CDT | | Family | | | | | | | Medicine | | | | | | | - | | | | | | | [place] | | | | | | | raman | + +---+ + +---+ + + + | AGE TIME PATIENT REPORTED: 65FACILITY / VISIT TYPE: [id number] | + + + +---+ + +---+ + | Outpatien | | [facility] | | | [facility] | | t | | [facility]- | 7 | | [facility] | | | | [facility] | 04:30:01 | | Clinic | | | | [facility] | PM CDT | | Family | | | | | | | Medicine | | | | | | | - | | | | | | | [place] | | | | | | | raman | + +---+ + +---+ + + + | AGE TIME PATIENT REPORTED: 65FACILITY / VISIT TYPE: [id number] | + + + +---+ + +---+ + | Outpatien | | [facility] | | | [facility] | | t | | [facility]- | 7 | | [facility] | | | | [facility] | 05:22:29 | | Clinic | | | | [facility] | 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 | | Family | | | | | | | Medicine | | | | | | | - | | | | | | | [place] | | | | | | | raman | + +---+ + +---+ + + + | AGE TIME PATIENT REPORTED: 65FACILITY / VISIT TYPE: [id number] | + + + +---+ + +---+ + | Inpatient | | [id number] | | | [facility] | | | | [phone] | 7 | | [facility] | | | | 325 | 05:40:37 | | Hot | | | | | 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 | | [facility] | + +---+ + +---+ + | Outpatien | | [facility] | | | [facility] | | t | | [facility]- | 7 | | [facility] | | | | [facility] | 03:55:07 | | Clinic | | | | [facility]FS[facility] | 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 | | Family | | | | | | | Medicine | | | | | | | - | | | | | | | [place] | | | | | | | raman | + +---+ + +---+ + + + | AGE TIME PATIENT REPORTED: 65FACILITY / VISIT TYPE: [id number] | + + + +---+ + +---+ + | Outpatien | | [facility] | | | [facility] | | t | | [facility]- | 7 | | [facility] | | | | [facility] | 03:26:17 | | Clinic | | | | [facility]FS[facility] | 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 | | Family | | | | | | | Medicine | | | | | | | - | | | | | | | [place] | | | | | | | raman | + +---+ + +---+ + + + | AGE TIME PATIENT REPORTED: 65FACILITY / VISIT TYPE: [id number] | + + + +---+ + +---+ + | Outpatien | | [facility] | | | [facility] | | t | | [facility]- | 7 | | [facility] | | | | [facility] | 03:11:30 | | Clinic | | | | [facility] | 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 | | Family | | | | | | | Medicine | | | | | | | - | | | | | | | [place] | | | | | | | raman | + +---+ + +---+ + + + | AGE TIME PATIENT REPORTED: 65FACILITY / VISIT TYPE: [id number] | + + + +---+ + +---+ + | Outpatien | | [facility] | | | [facility] | | t | | [facility]- | 7 | | [facility] | | | | [facility] | 03:46:05 | | Clinic | | | | [facility]FS[facility] | 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 | | Family | | | | | | | Medicine | | | | | | | - | | | | | | | [place] | | | | | | | raman | + +---+ + +---+ + + + | AGE TIME PATIENT REPORTED: 65FACILITY / VISIT TYPE: [id number] | + + + +---+ + +---+ + | Outpatien | | [facility] | | | [facility] | | t | | [facility]- | 7 | | [facility] | | | | [facility] | 03:45:06 | | Clinic | | | | [facility]FS[facility]O | 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 | | Family | | | | | | | Medicine | | | | | | | - | | | | | | | [place] | | | | | | | raman | + +---+ + +---+ + + + | AGE TIME PATIENT REPORTED: 65FACILITY / VISIT TYPE: [id number] | + + + +---+ + +---+ + | Outpatien | | [facility] | | | [facility] | | t | | [facility] | 7 | | [facility] | | | | C [facility] | 03:46:55 | | Clinics | | | | | 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 | | | + +---+ + +---+ + + + | AGE TIME PATIENT REPORTED: 65FACILITY / VISIT TYPE: [id number] | + + + +---+ + +---+ + | Outpatien | | [facility] | | | [facility] | | t | | [facility] | 7 | | [facility] | | | | C [facility] | 12:21:29 | | Clinics | | | | | 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 | | | + +---+ + +---+ + + + | AGE TIME PATIENT REPORTED: 65FACILITY / VISIT TYPE: [id number] | + + + + + + +---+ + | Outpatien | Referrer: | [facility] | | | [facility] | | t | CHELITA | [facility] | 7 | | [facility] | | | [facility] | [facility] | 10:13:44 | | Clinics | | | MD | | 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 | | | + + + + +---+ + + + | AGE TIME PATIENT REPORTED: 65FACILITY / VISIT TYPE: [id number] | | COMPLAINT:FIND:PT:PATIENT:NOM:REPORTED:16830: CHIEF | | COMPLAINT:FIND:PT:PATIENT:NOM:REPORTED: M79.602 | + + + + + + +---+ + | Outpatien | Referrer: | [facility] | | | [facility] | | t | DR MENDEZ | [facility]- | 7 | | Ever | | | ARTI PEDROZA | [facility] | 10:20:53 | | Clinic | | | | [facility] | 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 | | Family | | | | | | | Medicine | | | | | | | - | | | | | | | [place] | | | | | | | raman | + + + + +---+ + + + | AGE TIME PATIENT REPORTED: 65FACILITY / VISIT TYPE: [id number] | | COMPLAINT:FIND:PT:PATIENT:NOM:REPORTED:79162: CHIEF | | COMPLAINT:FIND:PT:PATIENT:NOM:REPORTED:10467: CHIEF | | COMPLAINT:FIND:PT:PATIENT:NOM:REPORTED: N39.46CHIEF | | COMPLAINT:FIND:PT:PATIENT:NOM:REPORTED: Z89.612CHIEF | | COMPLAINT:FIND:PT:PATIENT:NOM:REPORTED: N18.6CHIEF | | COMPLAINT:FIND:PT:PATIENT:NOM:REPORTED: M79.602CHIEF | | COMPLAINT:FIND:PT:PATIENT:NOM:REPORTED: F41.1 | + + + + + + +---+ + | Outpatien | Referrer: | [facility] | | | [facility] | | t | [facility] | [facility]-MM | 6 | | [facility] | | | [facility] | C GENS[facility] | 10:48:22 | | Clinics | | | MD | | 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 | | | + + + + +---+ + + + | AGE TIME PATIENT REPORTED: 65FACILITY / VISIT TYPE: [id number] | | COMPLAINT:FIND:PT:PATIENT:NOM:REPORTED:05100: CHIEF | | COMPLAINT:FIND:PT:PATIENT:NOM:REPORTED: N18.6CHIEF | | COMPLAINT:FIND:PT:PATIENT:NOM:REPORTED: I77.9 | + + + + + + +---+ + | Outpatien | Referrer: | [facility] | | | [facility] | | t | [facility] | Ortho | 6 | | [facility] | | | [facility] | | 01:00:00 | | Clinics | | | MD | | 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 | | | + + + + +---+ + + + | AGE TIME PATIENT REPORTED: 66FACILITY / VISIT TYPE: [id number] | | COMPLAINT:FIND:PT:PATIENT:NOM:REPORTED:99303: | + + + + + + +---+ + | Emergency | Attender: | CLARISSA-GLORIA | | | [facility] | | | [facility] | ED | 6 | | [facility] | | | [facility] | | 10:13:20 | | Hot | | | ""Admitte | | 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 - | | [facility] | | | r: | | | | Hospital | | | LEO | | 6 | | | | | LUIS | | 02:59:00 | | | | | ""Referre | | 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 | | | | | r: | | | | | | | LEO | | | | | | | LUIS | | | | | | | "" | | | | | + + + + +---+ + + + | TRIAGE NOTE:FIND:PT:EMERGENCY DEPARTMENT:DOC: Pt in room ED22. Pt alert | | and oriented x4. Pt c/o of R flank pain. Worse with palpation and | | movement. Pt states she has been using her right arm more, due to | | having recent surgery on L arm for dialysis cath. Pt denies any recent | | trauma. Pt c/o of nausea a this morning. Pt is due for dialysis | | today. VSS. NAD noted at this time. Pt denies any changes in urination. | | Pt states she urinates 1x daily and she has already urinated today. | | Will cont to monitor. Pt C/O back pain and vomitingAGE TIME PATIENT | | REPORTED: 65ACUITY ASSESSMENT AT FIRST ENCOUNTER: 3FACILITY / VISIT | | TYPE: [id number] COMPLAINT:FIND:PT:PATIENT:NOM:REPORTED:85903: | | CHIEF COMPLAINT:FIND:PT:PATIENT:NOM:REPORTED: CHIEF | | COMPLAINT:FIND:PT:PATIENT:NOM:REPORTED: K59.00 | + + + + + + +---+ + | Surgical | Attender: | [facility] | | | [facility] | | OP/Extend | DR | POR | 6 | | [facility] | | ed Care | Mark Anthony | | 09:28:00 | | Hot | | | LarrimerA | | 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 | | [facility] | | | dmitter: | | | | Hospital | | | DR | | | | | | | Mark Anthony | | | | | | | L[facility]imerC | | | | | | | onsultant | | | | | | | : | | | | | | | Mark Anthony | | | | | | | L[facility] | | | | | + + + + +---+ + + + | AGE TIME PATIENT REPORTED: 65FACILITY / VISIT TYPE: [id number] | | OR INJURY ONSET DATE AND TIME:TMSTP:PT:PATIENT:QN: [id number] | + + + +---+ + +---+ + | Outpatien | | [facility] | | | [facility] | | t | | POR | 6 | | [facility] | | | | | 10:52:12 | | Hot | | | | | 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 | | [facility] | | [facility] | + +---+ + +---+ + + + | AGE TIME PATIENT REPORTED: 65 | + + + +---+ + +---+ + | Outpatien | | [facility] | | | [facility] | | t | | [facility] | 6 | | [facility] | | | | C GENSUR | 10:51:56 | | Clinics | | | | | 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 | | | + +---+ + +---+ + + + | AGE TIME PATIENT REPORTED: 65FACILITY / VISIT TYPE: [id number] | + + + + + + +---+ + | Outpatien | Referrer: | [facility] | | | [facility] | | t | CHEL[facility] | GENSUR-MM | 6 | | [facility] | | | ZABRINA | C GENSUR | 10:06:21 | | Clinics | | | MD | | 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 | | | + + + + +---+ + + + | AGE TIME PATIENT REPORTED: 65FACILITY / VISIT TYPE: [id number] | | COMPLAINT:FIND:PT:PATIENT:NOM:REPORTED:00723: CHIEF | | COMPLAINT:FIND:PT:PATIENT:NOM:REPORTED: I77.9CHIEF | | COMPLAINT:FIND:PT:PATIENT:NOM:REPORTED: N18.6 | + + + + + + +---+ + | Outpatien | Referrer: | [facility] | | | [facility] | | t | CHEL[facility] | GENSUR-MM | 6 | | [facility] | | | [facility] | C GENSUR | 04:21:30 | | Clinics | | | MD | | 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 | | | + + + + +---+ + + + | AGE TIME PATIENT REPORTED: 66FACILITY / VISIT TYPE: [id number] | | COMPLAINT:FIND:PT:PATIENT:NOM:REPORTED:29582: CHIEF | | COMPLAINT:FIND:PT:PATIENT:NOM:REPORTED: N18.6 | + + + +---+ + +---+ + | Outpatien | | [facility] | | | [facility] | | t | | [facility]-MM | 6 | | [facility] | | | | C GENSUR | 03:11:55 | | Clinics | | | | | 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 | | | + +---+ + +---+ + + + | AGE TIME PATIENT REPORTED: 65FACILITY / VISIT TYPE: [id number] | + + + + + + +---+ + | Observati | Attender: | CLARISSA-SJM | | | [facility] | | on | DR | 4W | 6 | | [facility] | | | Mark Anthony | | 01:35:00 | | Hot | | | LarrimerA | | 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 - | | [facility] | | | dmitter: | | | | Hospital | | | DR | | 6 | | | | | Mark Anthony | | 02:31:00 | | | | | [facility] | | 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 | | | | | onsultant | | | | | | | : | | | | | | | Mark Anthony | | | | | | | L[facility]imerC | | | | | | | onsultant | | | | | | | : | | | | | | | Jennifer | | | | | | | Singapuri | | | | | + + + + +---+ + + + | AGE TIME PATIENT REPORTED: 65FACILITY / VISIT TYPE: [id number] | | OR INJURY ONSET DATE AND TIME:TMSTP:PT:PATIENT:QN: [id number] | | COMPLAINT:FIND:PT:PATIENT:NOM:REPORTED: N18.6 | + + Functional Status Immunizations + +------+ + + + | Vaccine | Date | Status | Description | Data | | | | | | Source(s) | + +------+ + + + | Year: | | completed | | [facility] | | [facility] | + +------+ + + + | Pneumonia | | completed | | [facility] | | [facility]ine: | | | [facility] | | | [facility] | + +------+ + + + | Year: | | completed | | [facility] | | | | [facility] | | [facility] | | | | | | [facility] | + +------+ + + + | Pneumonia | | completed | | [facility] | | [facility]ine: | | | [facility] | | [facility] | | | | | | [facility] | [facility] | + +------+ + + + Medications +----+----+----+----+----+----+----+----+----+----+----+----+----+ | Me | Br | St | Pr | Do | Ro | Ad | Ph | St | In | Re | De | Da | | di | an | ar | od | se | ut | mi | ar | at | di | ac | sc | ta | | ca | d | t | uc | | e | ni | ma | us | ca | ti | ri | | | ti | Na | Da | t | | | st | cy | | ti | on | pt | So | | on | me | te | Fo | | | ra | | | on | | io | ur | | | | | rm | | | ti | In | | s | | n | ce | | | | | | | | ve | st | | | | | (s | | | | | | | | | ru | | | | | ) | | | | | | | | In | ct | | | | | | | | | | | | | st | io | | | | | | | | | | | | | ru | ns | | | | | | | | | | | | | ct | | | | | | | | | | | | | | io | | | | | | | | | | | | | | ns | | | | | | | +----+----+----+----+----+----+----+----+----+----+----+----+----+ | Ga | | | | 60 | | | | co | | | TH | Na | | ba | | | | 0 | | | | mp | | | RE | ti | | pe | | | | mg | | | | le | | | E | on | | nt | | | | | | | | te | | | TI | al | | in | | | | | | | | d | | | ME | | | | | | | | | | | | | | S | Pa | | (N | | | | | | | | | | | A | rk | | eu | | | | | | | | | | | DA | | | ro | | | | | | | | | | | Y | Me | | nt | | | | | | | | | | | | di | | in | | | | | | | | | | | | ca | | ) | | | | | | | | | | | | l | | 60 | | | | | | | | | | | | Ce | | 0 | | | | | | | | | | | | nt | | MG | | | | | | | | | | | | er | | | | | | | | | | | | | | | | TA | | | | | | | | | | | | (N | | BL | | | | | | | | | | | | PM | | ET | | | | | | | | | | | | C) | | | | | | | | | | | | | | | | | | | | | | | | | | | | Ho | | | | | | | | | | | | | | sp | | | | | | | | | | | | | | it | | | | | | | | | | | | | | al | +----+----+----+----+----+----+----+----+----+----+----+----+----+ | Pe | | | | 40 | | | | co | | | DA | Na | | nt | | | | 0 | | | | mp | | | IL | ti | | ox | | | | mg | | | | le | | | Y | on | | if | | | | | | | | te | | | 09 | al | | yl | | | | | | | | d | | | 00 | | | li | | | | | | | | | | | | Pa | | ne | | | | | | | | | | | | rk | | | | | | | | | | | | | | | | (T | | | | | | | | | | | | Me | | re | | | | | | | | | | | | di | | nt | | | | | | | | | | | | ca | | al | | | | | | | | | | | | l | | ) | | | | | | | | | | | | Ce | | 40 | | | | | | | | | | | | nt | | 0 | | | | | | | | | | | | er | | MG | | | | | | | | | | | | | | | | | | | | | | | | | | (N | | TA | | | | | | | | | | | | PM | | BL | | | | | | | | | | | | C) | | ET | | | | | | | | | | | | | | .S | | | | | | | | | | | | Ho | | A | | | | | | | | | | | | sp | | | | | | | | | | | | | | it | | | | | | | | | | | | | | al | +----+----+----+----+----+----+----+----+----+----+----+----+----+ | Fu | | | | 40 | | | | co | | | DA | Na | | ro | | | | | | | | mp | | | IL | ti | | se | | | | mg | | | | le | | | Y | on | | mi | | | | | | | | te | | | 09 | al | | de | | | | | | | | d | | | 00 | | | | | | | | | | | | | | | Pa | | 40 | | | | | | | | | | | | rk | | | | | | | | | | | | | | | | MG | | | | | | | | | | | | Me | | | | | | | | | | | | | | di | | TA | | | | | | | | | | | | ca | | BL | | | | | | | | | | | | l | | ET | | | | | | | | | | | | Ce | | | | | | | | | | | | | | nt | | | | | | | | | | | | | | er | | | | | | | | | | | | | | | | | | | | | | | | | | | | (N | | | | | | | | | | | | | | PM | | | | | | | | | | | | | | C) | | | | | | | | | | | | | | | | | | | | | | | | | | | | Ho | | | | | | | | | | | | | | sp | | | | | | | | | | | | | | it | | | | | | | | | | | | | | al | +----+----+----+----+----+----+----+----+----+----+----+----+----+ | Hy | | | | 1 | | | | co | | | EV | Na | | dr | | | | {t | | | | mp | | | ER | ti | | oc | | | | bl | | | | le | | | Y | on | | od | | | | } | | | | te | | | 6 | al | | on | | | | | | | | d | | | HO | | | e | | | | | | | | | | | UR | Pa | | Bi | | | | | | | | | | | S | rk | | t/ | | | | | | | | | | | | | | Ac | | | | | | | | | | | | Me | | et | | | | | | | | | | | NE | di | | am | | | | | | | | | | | ED | ca | | in | | | | | | | | | | | ED | l | | op | | | | | | | | | | | | Ce | | he | | | | | | | | | | | as | nt | | n | | | | | | | | | | | | er | | 10 | | | | | | | | | | | ne | | | -3 | | | | | | | | | | | ed | (N | | 25 | | | | | | | | | | | ed | PM | | | | | | | | | | | | | | C) | | (N | | | | | | | | | | | fo | | | or | | | | | | | | | | | r | Ho | | co | | | | | | | | | | | PA | sp | | | | | | | | | | | | | IN | it | | 10 | | | | | | | | | | | | al | | -3 | | | | | | | | | | | | | | 25 | | | | | | | | | | | | | | | | | | | | | | | | | | | | Ta | | | | | | | | | | | | | | bl | | | | | | | | | | | | | | et | | | | | | | | | | | | | | ) | | | | | | | | | | | | | | 1 | | | | | | | | | | | | | | TA | | | | | | | | | | | | | | B | | | | | | | | | | | | | | TA | | | | | | | | | | | | | | BL | | | | | | | | | | | | | | ET | | | | | | | | | | | | | +----+----+----+----+----+----+----+----+----+----+----+----+----+ | At | | | | 80 | | | | co | | | AT | Na | | or | | | | | | | | mp | | | | ti | | va | | | | mg | | | | le | | | BE | on | | st | | | | | | | | te | | | DT | al | | at | | | | | | | | d | | | IM | | | in | | | | | | | | | | | E | Pa | | | | | | | | | | | | | | rk | | (L | | | | | | | | | | | | | | ip | | | | | | | | | | | | Me | | it | | | | | | | | | | | | di | | or | | | | | | | | | | | | ca | | ) | | | | | | | | | | | | l | | 80 | | | | | | | | | | | | Ce | | | | | | | | | | | | | | nt | | MG | | | | | | | | | | | | er | | | | | | | | | | | | | | | | TA | | | | | | | | | | | | (N | | BL | | | | | | | | | | | | PM | | ET | | | | | | | | | | | | C) | | | | | | | | | | | | | | | | | | | | | | | | | | | | Ho | | | | | | | | | | | | | | sp | | | | | | | | | | | | | | it | | | | | | | | | | | | | | al | +----+----+----+----+----+----+----+----+----+----+----+----+----+ | Is | | | | 30 | | | | co | | | DA | Na | | os | | | | | | | | mp | | | IL | ti | | or | | | | mg | | | | le | | | Y | on | | bi | | | | | | | | te | | | 09 | al | | de | | | | | | | | d | | | 00 | | | | | | | | | | | | | | | Pa | | Di | | | | | | | | | | | | rk | | ni | | | | | | | | | | | | | | tr | | | | | | | | | | | | Me | | at | | | | | | | | | | | | di | | e | | | | | | | | | | | | ca | | 30 | | | | | | | | | | | | l | | | | | | | | | | | | | | Ce | | MG | | | | | | | | | | | | nt | | | | | | | | | | | | | | er | | TA | | | | | | | | | | | | | | BL | | | | | | | | | | | | (N | | ET | | | | | | | | | | | | PM | | | | | | | | | | | | | | C) | | | | | | | | | | | | | | | | | | | | | | | | | | | | Ho | | | | | | | | | | | | | | sp | | | | | | | | | | | | | | it | | | | | | | | | | | | | | al | +----+----+----+----+----+----+----+----+----+----+----+----+----+ | Pe | | | | 40 | | | | co | | | DA | Na | | nt | | | | 0 | | | | mp | | | IL | ti | | ox | | | | mg | | | | le | | | Y | on | | if | | | | | | | | te | | | 09 | al | | yl | | | | | | | | d | | | 00 | | | li | | | | | | | | | | | | Pa | | ne | | | | | | | | | | | | rk | | | | | | | | | | | | | | | | (T | | | | | | | | | | | | Me | | re | | | | | | | | | | | | di | | nt | | | | | | | | | | | | ca | | al | | | | | | | | | | | | l | | ) | | | | | | | | | | | | Ce | | 40 | | | | | | | | | | | | nt | | 0 | | | | | | | | | | | | er | | MG | | | | | | | | | | | | | | | | | | | | | | | | | | (N | | TA | | | | | | | | | | | | PM | | BL | | | | | | | | | | | | C) | | ET | | | | | | | | | | | | | | .S | | | | | | | | | | | | Ho | | A | | | | | | | | | | | | sp | | | | | | | | | | | | | | it | | | | | | | | | | | | | | al | +----+----+----+----+----+----+----+----+----+----+----+----+----+ | Li | | | | 20 | | | | co | | | TW | Na | | si | | | | | | | | mp | | | IC | ti | | no | | | | mg | | | | le | | | E | on | | pr | | | | | | | | te | | | A | al | | il | | | | | | | | d | | | DA | | | | | | | | | | | | | | Y | Pa | | (P | | | | | | | | | | | fo | rk | | ri | | | | | | | | | | | r | | | ni | | | | | | | | | | | OF | Me | | vi | | | | | | | | | | | F | di | | l) | | | | | | | | | | | FO | ca | | | | | | | | | | | | | R | l | | 20 | | | | | | | | | | | NO | Ce | | | | | | | | | | | | | W | nt | | MG | | | | | | | | | | | | er | | | | | | | | | | | | | | | | TA | | | | | | | | | | | | (N | | BL | | | | | | | | | | | | PM | | ET | | | | | | | | | | | | C) | | | | | | | | | | | | | | | | | | | | | | | | | | | | Ho | | | | | | | | | | | | | | sp | | | | | | | | | | | | | | it | | | | | | | | | | | | | | al | +----+----+----+----+----+----+----+----+----+----+----+----+----+ | In | | | | 10 | | | | co | | | AT | Na | | kenney | | | | | | | | mp | | | | ti | | li | | | | | | | | le | | | BE | on | | n | | | | | | | | te | | | DT | al | | Gl | | | | | | | | d | | | IM | | | ar | | | | | | | | | | | E | Pa | | gi | | | | | | | | | | | | rk | | ne | | | | | | | | | | | | | | ,H | | | | | | | | | | | | Me | | um | | | | | | | | | | | | di | | .r | | | | | | | | | | | | ca | | ec | | | | | | | | | | | | l | | .a | | | | | | | | | | | | Ce | | nl | | | | | | | | | | | | nt | | og | | | | | | | | | | | | er | | | | | | | | | | | | | | | | (L | | | | | | | | | | | | (N | | AN | | | | | | | | | | | | PM | | TU | | | | | | | | | | | | C) | | S) | | | | | | | | | | | | | | | | | | | | | | | | | | Ho | | 10 | | | | | | | | | | | | sp | | 0 | | | | | | | | | | | | it | | UN | | | | | | | | | | | | al | | IT | | | | | | | | | | | | | | S/ | | | | | | | | | | | | | | ML | | | | | | | | | | | | | | | | | | | | | | | | | | | | UN | | | | | | | | | | | | | | IT | | | | | | | | | | | | | +----+----+----+----+----+----+----+----+----+----+----+----+----+ | Li | | | | 20 | | | | co | | | TW | Na | | si | | | | | | | | mp | | | IC | ti | | no | | | | mg | | | | le | | | E | on | | pr | | | | | | | | te | | | A | al | | il | | | | | | | | d | | | DA | | | | | | | | | | | | | | Y | Pa | | (P | | | | | | | | | | | fo | rk | | ri | | | | | | | | | | | r | | | ni | | | | | | | | | | | OF | Me | | vi | | | | | | | | | | | F | di | | l) | | | | | | | | | | | FO | ca | | | | | | | | | | | | | R | l | | 20 | | | | | | | | | | | NO | Ce | | | | | | | | | | | | | W | nt | | MG | | | | | | | | | | | | er | | | | | | | | | | | | | | | | TA | | | | | | | | | | | | (N | | BL | | | | | | | | | | | | PM | | ET | | | | | | | | | | | | C) | | | | | | | | | | | | | | | | | | | | | | | | | | | | Ho | | | | | | | | | | | | | | sp | | | | | | | | | | | | | | it | | | | | | | | | | | | | | al | +----+----+----+----+----+----+----+----+----+----+----+----+----+ | At | | | | 80 | | | | co | | | AT | Na | | or | | | | | | | | mp | | | | ti | | va | | | | mg | | | | le | | | BE | on | | st | | | | | | | | te | | | DT | al | | at | | | | | | | | d | | | IM | | | in | | | | | | | | | | | E | Pa | | | | | | | | | | | | | | rk | | (L | | | | | | | | | | | | | | ip | | | | | | | | | | | | Me | | it | | | | | | | | | | | | di | | or | | | | | | | | | | | | ca | | ) | | | | | | | | | | | | l | | 80 | | | | | | | | | | | | Ce | | | | | | | | | | | | | | nt | | MG | | | | | | | | | | | | er | | | | | | | | | | | | | | | | TA | | | | | | | | | | | | (N | | BL | | | | | | | | | | | | PM | | ET | | | | | | | | | | | | C) | | | | | | | | | | | | | | | | | | | | | | | | | | | | Ho | | | | | | | | | | | | | | sp | | | | | | | | | | | | | | it | | | | | | | | | | | | | | al | +----+----+----+----+----+----+----+----+----+----+----+----+----+ | AL | | | | 0. | | | | co | | | EV | Na | | ID | | | | 5 | | | | mp | | | ER | ti | | [place] | | | | mg | | | | le | | | Y | on | | ol | | | | | | | | te | | | 12 | al | | am | | | | | | | | d | | | | | | | | | | | | | | | | | HO | Pa | | (X | | | | | | | | | | | UR | rk | | an | | | | | | | | | | | S | | | ax | | | | | | | | | | | | Me | | ) | | | | | | | | | | | | di | | 0. | | | | | | | | | | | NE | ca | | 5 | | | | | | | | | | | ED | l | | MG | | | | | | | | | | | ED | Ce | | | | | | | | | | | | | | nt | | TA | | | | | | | | | | | as | er | | BL | | | | | | | | | | | | | | ET | | | | | | | | | | | ne | (N | | | | | | | | | | | | | ed | PM | | | | | | | | | | | | | ed | C) | | | | | | | | | | | | | | | | | | | | | | | | | | | fo | Ho | | | | | | | | | | | | | r | sp | | | | | | | | | | | | | WH | it | | | | | | | | | | | | | EN | al | | | | | | | | | | | | | | | | | | | | | | | | | | | GO | | | | | | | | | | | | | | ES | | | | | | | | | | | | | | | | | | | | | | | | | | | | TO | | | | | | | | | | | | | | | | | | | | | | | | | | | | DI | | | | | | | | | | | | | | AL | | | | | | | | | | | | | | YS | | | | | | | | | | | | | | IS | | +----+----+----+----+----+----+----+----+----+----+----+----+----+ | In | | | | 10 | | | | co | | | AT | Na | | kenney | | | | | | | | mp | | | | ti | | li | | | | | | | | le | | | BE | on | | n | | | | | | | | te | | | DT | al | | Gl | | | | | | | | d | | | IM | | | ar | | | | | | | | | | | E | Pa | | gi | | | | | | | | | | | | rk | | ne | | | | | | | | | | | | | | ,H | | | | | | | | | | | | Me | | um | | | | | | | | | | | | di | | .r | | | | | | | | | | | | ca | | ec | | | | | | | | | | | | l | | .a | | | | | | | | | | | | Ce | | nl | | | | | | | | | | | | nt | | og | | | | | | | | | | | | er | | | | | | | | | | | | | | | | (L | | | | | | | | | | | | (N | | AN | | | | | | | | | | | | PM | | TU | | | | | | | | | | | | C) | | S) | | | | | | | | | | | | | | | | | | | | | | | | | | Ho | | 10 | | | | | | | | | | | | sp | | 0 | | | | | | | | | | | | it | | UN | | | | | | | | | | | | al | | IT | | | | | | | | | | | | | | S/ | | | | | | | | | | | | | | ML | | | | | | | | | | | | | | | | | | | | | | | | | | | | UN | | | | | | | | | | | | | | IT | | | | | | | | | | | | | +----+----+----+----+----+----+----+----+----+----+----+----+----+ | In | | | | | | | | co | | | TH | Na | | kenney | | | | | | | | mp | | | RE | ti | | li | | | | | | | | le | | | E | on | | n | | | | | | | | te | | | TI | al | | Li | | | | | | | | d | | | ME | | | sp | | | | | | | | | | | S | Pa | | ro | | | | | | | | | | | DA | rk | | | | | | | | | | | | | IL | | | Pr | | | | | | | | | | | Y | Me | | t/ | | | | | | | | | | | BE | di | | Li | | | | | | | | | | | FO | ca | | sp | | | | | | | | | | | RE | l | | ro | | | | | | | | | | | | Ce | | | | | | | | | | | | | ME | nt | | (H | | | | | | | | | | | AL | er | | um | | | | | | | | | | | S | | | aL | | | | | | | | | | | fo | (N | | OG | | | | | | | | | | | r | PM | | | | | | | | | | | | | SS | C) | | 50 | | | | | | | | | | | | | | /5 | | | | | | | | | | | | Ho | | 0 | | | | | | | | | | | | sp | | Kw | | | | | | | | | | | | it | | ik | | | | | | | | | | | | al | | pe | | | | | | | | | | | | | | n) | | | | | | | | | | | | | | 3 | | | | | | | | | | | | | | | | | | | | | | | | | | | | ML | | | | | | | | | | | | | | | | | | | | | | | | | | | | IN | | | | | | | | | | | | | | KENNEY | | | | | | | | | | | | | | LN | | | | | | | | | | | | | | .P | | | | | | | | | | | | | | EN | | | | | | | | | | | | | +----+----+----+----+----+----+----+----+----+----+----+----+----+ | Ca | | | | | | | | co | | | | Na | | rv | | | | | | | | mp | | | | ti | | ed | | | | | | | | le | | | | on | | il | | | | | | | | te | | | | al | | ol | | | | | | | | d | | | | | | | | | | | | | | | | | | Pa | | (C | | | | | | | | | | | | rk | | or | | | | | | | | | | | | | | eg | | | | | | | | | | | | Me | | ) | | | | | | | | | | | | di | | 6. | | | | | | | | | | | | ca | | 25 | | | | | | | | | | | | l | | | | | | | | | | | | | | Ce | | MG | | | | | | | | | | | | nt | | | | | | | | | | | | | | er | | TA | | | | | | | | | | | | | | BL | | | | | | | | | | | | (N | | ET | | | | | | | | | | | | PM | | | | | | | | | | | | | | C) | | | | | | | | | | | | | | | | | | | | | | | | | | | | Ho | | | | | | | | | | | | | | sp | | | | | | | | | | | | | | it | | | | | | | | | | | | | | al | +----+----+----+----+----+----+----+----+----+----+----+----+----+ | AL | | | | 0. | | | | co | | | EV | Na | | ID | | | | 5 | | | | mp | | | ER | ti | | [place] | | | | mg | | | | le | | | Y | on | | ol | | | | | | | | te | | | 12 | al | | am | | | | | | | | d | | | | | | | | | | | | | | | | | HO | Pa | | (X | | | | | | | | | | | UR | rk | | an | | | | | | | | | | | S | | | ax | | | | | | | | | | | | Me | | ) | | | | | | | | | | | | di | | 0. | | | | | | | | | | | NE | ca | | 5 | | | | | | | | | | | ED | l | | MG | | | | | | | | | | | ED | Ce | | | | | | | | | | | | | | nt | | TA | | | | | | | | | | | as | er | | BL | | | | | | | | | | | | | | ET | | | | | | | | | | | ne | (N | | | | | | | | | | | | | ed | PM | | | | | | | | | | | | | ed | C) | | | | | | | | | | | | | | | | | | | | | | | | | | | fo | Ho | | | | | | | | | | | | | r | sp | | | | | | | | | | | | | WH | it | | | | | | | | | | | | | EN | al | | | | | | | | | | | | | | | | | | | | | | | | | | | GO | | | | | | | | | | | | | | ES | | | | | | | | | | | | | | | | | | | | | | | | | | | | TO | | | | | | | | | | | | | | | | | | | | | | | | | | | | DI | | | | | | | | | | | | | | AL | | | | | | | | | | | | | | YS | | | | | | | | | | | | | | IS | | +----+----+----+----+----+----+----+----+----+----+----+----+----+ | Is | | | | 30 | | | | co | | | DA | Na | | os | | | | | | | | mp | | | IL | ti | | or | | | | mg | | | | le | | | Y | on | | bi | | | | | | | | te | | | 09 | al | | de | | | | | | | | d | | | 00 | | | | | | | | | | | | | | | Pa | | Di | | | | | | | | | | | | rk | | ni | | | | | | | | | | | | | | tr | | | | | | | | | | | | Me | | at | | | | | | | | | | | | di | | e | | | | | | | | | | | | ca | | 30 | | | | | | | | | | | | l | | | | | | | | | | | | | | Ce | | MG | | | | | | | | | | | | nt | | | | | | | | | | | | | | er | | TA | | | | | | | | | | | | | | BL | | | | | | | | | | | | (N | | ET | | | | | | | | | | | | PM | | | | | | | | | | | | | | C) | | | | | | | | | | | | | | | | | | | | | | | | | | | | Ho | | | | | | | | | | | | | | sp | | | | | | | | | | | | | | it | | | | | | | | | | | | | | al | +----+----+----+----+----+----+----+----+----+----+----+----+----+ | Ca | | | | | | | | co | | | | Na | | rv | | | | | | | | mp | | | | ti | | ed | | | | | | | | le | | | | on | | il | | | | | | | | te | | | | al | | ol | | | | | | | | d | | | | | | | | | | | | | | | | | | Pa | | (C | | | | | | | | | | | | rk | | or | | | | | | | | | | | | | | eg | | | | | | | | | | | | Me | | ) | | | | | | | | | | | | di | | 6. | | | | | | | | | | | | ca | | 25 | | | | | | | | | | | | l | | | | | | | | | | | | | | Ce | | MG | | | | | | | | | | | | nt | | | | | | | | | | | | | | er | | TA | | | | | | | | | | | | | | BL | | | | | | | | | | | | (N | | ET | | | | | | | | | | | | PM | | | | | | | | | | | | | | C) | | | | | | | | | | | | | | | | | | | | | | | | | | | | Ho | | | | | | | | | | | | | | sp | | | | | | | | | | | | | | it | | | | | | | | | | | | | | al | +----+----+----+----+----+----+----+----+----+----+----+----+----+ | Hy | | | | 1 | | | | co | | | EV | Na | | dr | | | | {t | | | | mp | | | ER | ti | | oc | | | | bl | | | | le | | | Y | on | | od | | | | } | | | | te | | | 6 | al | | on | | | | | | | | d | | | HO | | | e | | | | | | | | | | | UR | Pa | | Bi | | | | | | | | | | | S | rk | | t/ | | | | | | | | | | | | | | Ac | | | | | | | | | | | | Me | | et | | | | | | | | | | | NE | di | | am | | | | | | | | | | | ED | ca | | in | | | | | | | | | | | ED | l | | op | | | | | | | | | | | | Ce | | he | | | | | | | | | | | as | nt | | n | | | | | | | | | | | | er | | 10 | | | | | | | | | | | ne | | | -3 | | | | | | | | | | | ed | (N | | 25 | | | | | | | | | | | ed | PM | | | | | | | | | | | | | | C) | | (N | | | | | | | | | | | fo | | | or | | | | | | | | | | | r | Ho | | co | | | | | | | | | | | PA | sp | | | | | | | | | | | | | IN | it | | 10 | | | | | | | | | | | | al | | -3 | | | | | | | | | | | | | | 25 | | | | | | | | | | | | | | | | | | | | | | | | | | | | Ta | | | | | | | | | | | | | | bl | | | | | | | | | | | | | | et | | | | | | | | | | | | | | ) | | | | | | | | | | | | | | 1 | | | | | | | | | | | | | | TA | | | | | | | | | | | | | | B | | | | | | | | | | | | | | TA | | | | | | | | | | | | | | BL | | | | | | | | | | | | | | ET | | | | | | | | | | | | | +----+----+----+----+----+----+----+----+----+----+----+----+----+ | In | | | | | | | | co | | | TH | Na | | kenney | | | | | | | | mp | | | RE | ti | | li | | | | | | | | le | | | E | on | | n | | | | | | | | te | | | TI | al | | Li | | | | | | | | d | | | ME | | | sp | | | | | | | | | | | S | Pa | | ro | | | | | | | | | | | DA | rk | | | | | | | | | | | | | IL | | | Pr | | | | | | | | | | | Y | Me | | t/ | | | | | | | | | | | BE | di | | Li | | | | | | | | | | | FO | ca | | sp | | | | | | | | | | | RE | l | | ro | | | | | | | | | | | | Ce | | | | | | | | | | | | | ME | nt | | (H | | | | | | | | | | | AL | er | | um | | | | | | | | | | | S | | | aL | | | | | | | | | | | fo | (N | | OG | | | | | | | | | | | r | PM | | | | | | | | | | | | | SS | C) | | 50 | | | | | | | | | | | | | | /5 | | | | | | | | | | | | Ho | | 0 | | | | | | | | | | | | sp | | Kw | | | | | | | | | | | | it | | ik | | | | | | | | | | | | al | | pe | | | | | | | | | | | | | | n) | | | | | | | | | | | | | | 3 | | | | | | | | | | | | | | | | | | | | | | | | | | | | ML | | | | | | | | | | | | | | | | | | | | | | | | | | | | IN | | | | | | | | | | | | | | [facility] | | | | | | | | | | | | | | LN | | | | | | | | | | | | | | .P | | | | | | | | | | | | | | EN | | | | | | | | | | | | | +----+----+----+----+----+----+----+----+----+----+----+----+----+ | Fu | | | | 40 | | | | co | | | DA | Na | | ro | | | | | | | | mp | | | IL | ti | | se | | | | mg | | | | le | | | Y | on | | mi | | | | | | | | te | | | 09 | al | | de | | | | | | | | d | | | 00 | | | | | | | | | | | | | | | Pa | | 40 | | | | | | | | | | | | rk | | | | | | | | | | | | | | | | MG | | | | | | | | | | | | Me | | | | | | | | | | | | | | di | | TA | | | | | | | | | | | | ca | | BL | | | | | | | | | | | | l | | ET | | | | | | | | | | | | Ce | | | | | | | | | | | | | | nt | | | | | | | | | | | | | | er | | | | | | | | | | | | | | | | | | | | | | | | | | | | (N | | | | | | | | | | | | | | PM | | | | | | | | | | | | | | C) | | | | | | | | | | | | | | | | | | | | | | | | | | | | Ho | | | | | | | | | | | | | | sp | | | | | | | | | | | | | | it | | | | | | | | | | | | | | al | +----+----+----+----+----+----+----+----+----+----+----+----+----+ | Ga | | | | 60 | | | | co | | | TH | Na | | ba | | | | 0 | | | | mp | | | RE | ti | | pe | | | | mg | | | | le | | | E | on | | nt | | | | | | | | te | | | TI | al | | in | | | | | | | | d | | | ME | | | | | | | | | | | | | | S | Pa | | (N | | | | | | | | | | | A | rk | | eu | | | | | | | | | | | DA | | | ro | | | | | | | | | | | Y | Me | | nt | | | | | | | | | | | | di | | in | | | | | | | | | | | | ca | | ) | | | | | | | | | | | | l | | 60 | | | | | | | | | | | | Ce | | 0 | | | | | | | | | | | | nt | | MG | | | | | | | | | | | | er | | | | | | | | | | | | | | | | TA | | | | | | | | | | | | (N | | BL | | | | | | | | | | | | PM | | ET | | | | | | | | | | | | C) | | | | | | | | | | | | | | | | | | | | | | | | | | | | Ho | | | | | | | | | | | | | | sp | | | | | | | | | | | | | | it | | | | | | | | | | | | | | al | +----+----+----+----+----+----+----+----+----+----+----+----+----+ Insurance Providers +---------+---------+---------+---------+---------+---------+---------+ | Payer | Policy | Policy | Covered | Covered | Policy | Plan | | name | type / | ID | constitution party | | Clark | Informa | | | Coverag | | ID | constitution party's | | tion | | | e type | | | | | | | | | | | relatio | | | | | | | | nship | | | | | | | | to | | | | | | | | clark | | | +---------+---------+---------+---------+---------+---------+---------+ | UHC - | | [id number] | | Self | | [id number] | | AARP - | | 05 | | | | 05 | | MEDICAR | | | | | | | | E | | | | | | | | SOLUTIO | | | | | | | | NS - | | | | | | | | MEDICAR | | | | | | | | E | | | | | | | | COMPLET | | | | | | | | E | | | | | | | | (MEDICA | | | | | | | | RE | | | | | | | | REPLACE | | | | | | | | MENT | | | | | | | | PPO) | | | | | | | +---------+---------+---------+---------+---------+---------+---------+ | UHC | | [id number] | | 01 | | [id number] | | MCARE | | 05 | | | | 05 | | SOLUTIO | | | | | | | | NS | | | | | | | | REHAB | | | | | | | +---------+---------+---------+---------+---------+---------+---------+ | UHC | | [id number] | | 01 | | [id number] | | MEDICAR | | 05 | | | | 05 | | E | | | | | | | | SOLUTIO | | | | | | | | NS | | | | | | | +---------+---------+---------+---------+---------+---------+---------+ | U[facility] - | | [id number] | | Self | | [id number] | | AARP - | | 05 | | | | 05 | | MEDICAR | | | | | | | | E | | | | | | | | SOLUTIO | | | | | | | | NS - | | | | | | | | MEDICAR | | | | | | | | E | | | | | | | | COMPLET | | | | | | | | E | | | | | | | | (MEDICA | | | | | | | | RE | | | | | | | | REPLACE | | | | | | | | MENT | | | | | | | | PPO) | | | | | | | +---------+---------+---------+---------+---------+---------+---------+ | [facility] | 18 | [id number] | | | | [id number] | | HEALTHC | | 05 | | | | 05 | | ARE | | | | | | | +---------+---------+---------+---------+---------+---------+---------+ | UHC | | [id number] | | 01 | | [id number] | | MEDICAR | | 0500 | | | | 0500 | | E | | | | | | | | SOLUTIO | | | | | | | | NS | | | | | | | +---------+---------+---------+---------+---------+---------+---------+ | [facility] | 18 | [id number] | | | | [id number] | | HEALTHC | | 05 | | | | 05 | | ARE | | | | | | | +---------+---------+---------+---------+---------+---------+---------+ | U[facility] - | | [id number] | | Self | | [id number] | | AARP - | | 05 | | | | 05 | | MEDICAR | | | | | | | | E | | | | | | | | SOLUTIO | | | | | | | | NS - | | | | | | | | MEDICAR | | | | | | | | E | | | | | | | | COMPLET | | | | | | | | E | | | | | | | | (MEDICA | | | | | | | | RE | | | | | | | | REPLACE | | | | | | | | MENT | | | | | | | | PPO) | | | | | | | +---------+---------+---------+---------+---------+---------+---------+ | UHC - | | [id number] | | Self | | [id number] | | AARP - | | 05 | | | | 05 | | MEDICAR | | | | | | | | E | | | | | | | | SOLUTIO | | | | | | | | NS - | | | | | | | | MEDICAR | | | | | | | | E | | | | | | | | COMPLET | | | | | | | | E | | | | | | | | (MEDICA | | | | | | | | RE | | | | | | | | REPLACE | | | | | | | | MENT | | | | | | | | PPO) | | | | | | | +---------+---------+---------+---------+---------+---------+---------+ | UHC | | [id number] | | Self | | [id number] | | MEDICAR | | [id number] | | | | [id number] | | E | | [id number] | | | | [id number] | | SOLUTIO | | 21-0050 | | | | 21-0050 | | NS | | [id number] | | | | [id number] | | | | 7 | | | | 7 | +---------+---------+---------+---------+---------+---------+---------+ | UHC | | [id number] | | Self | | [id number] | | MEDICAR | | [id number] | | | | [id number] | | E | | [id number] | | | | [id number] | | SOLUTIO | | 21-0050 | | | | 21-0050 | | NS | | [id number] | | | | [id number] | | | | 7 | | | | 7 | +---------+---------+---------+---------+---------+---------+---------+ | UHC | | [id number] | | 01 | | [id number] | | MEDICAR | | 0500 | | | | 0500 | | E | | | | | | | | SOLUTIO | | | | | | | | NS | | | | | | | +---------+---------+---------+---------+---------+---------+---------+ | [facility] | | [id number] | | Self | | [id number] | | HEALTHC | | 05 | | | | 05 | | ARE - | | | | | | | | CARE | | | | | | | | IMPROVE | | | | | | | | MENT | | | | | | | | PLUS - | | | | | | | | REGIONA | | | | | | | | L | | | | | | | | (MEDICA | | | | | | | | RE | | | | | | | | REPLACE | | | | | | | | MENT | | | | | | | | PPO) | | | | | | | +---------+---------+---------+---------+---------+---------+---------+ | [facility] | 18 | [id number] | | | | [id number] | | HEALTHC | | 05 | | | | 05 | | ARE | | | | | | | +---------+---------+---------+---------+---------+---------+---------+ | [facility] | 18 | [id number] | | | | [id number] | | HEALTHC | | 05 | | | | 05 | | ARE | | | | | | | +---------+---------+---------+---------+---------+---------+---------+ | MEDICAI | 6 | [id number] | | | | [id number] | | D | | 001 | | | | 001 | +---------+---------+---------+---------+---------+---------+---------+ | MEDICAI | 6 | [id number] | | | | [id number] | | D | | 001 | | | | 001 | +---------+---------+---------+---------+---------+---------+---------+ | MEDICAI | 6 | [id number] | | | | [id number] | | D | | 001 | | | | 001 | +---------+---------+---------+---------+---------+---------+---------+ Problems, Conditions, and Diagnoses + + + + + + + | Code | Display | Descripti | Problem | Effective | Data | | | Name | on | Type | Dates | Source(s) | + + + + + + + | [id number] | Chronic | Chronic | | | [facility] | | | kidney | kidney | | 0 | r | | | disease | disease | | 09:49:07 | Physician | | | stage 5 | stage 5 | | 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 | [facility] | | | | | | | [facility] | | | | | | | [place] | + + + + + + + | [id number] | Tremor | Tremor | | | [facility] | | | | | | 9 | r | | | | | | 12:20:26 | Physician | | | | | | PM CDT | s [facility] | | | | | | | [facility] | | | | | | | [place] | + + + + + + + | [id number] | Periphera | Periphera | | | National | | | l | l | | 9 | Park | | | vascular | vascular | | 12:02:02 | Medical | | | disease | disease | | PM CDT | Center | | | | | | | Clinics | + + + + + + + | [id number] | Chronic | Chronic | | | National | | | obstructi | obstructi | | 9 | Park | | | ve lung | ve lung | | 12:01:57 | Medical | | | disease | disease | | PM CDT | Center | | | | | | | Clinics | + + + + + + + | [id number] | Essential | Essential | | | National | | | | | | 9 | Park | | | hypertens | hypertens | | 12:01:52 | Medical | | | ion | ion | | PM CDT | Center | | | | | | | Clinics | + + + + + + + | [phone] | Coronary | Coronary | | | National | | | arteriosc | arteriosc | | 9 | Park | | | lerosis | lerosis | | 12:01:44 | Medical | | | | | | PM CDT | Center | | | | | | | Clinics | + + + + + + + | [id number] | Chronic | Chronic | | | [facility] | | | kidney | kidney | | 9 | r | | | disease | disease | | 05:07:03 | Physician | | | stage 4 | stage 4 | | 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 - | s [facility] | | | | | | | [facility] | | | | | | 0 | [place] | | | | | | 12:00:00 | | | | | | | 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 | | + + + + + + + | [phone] | Vitamin D | Vitamin D | | | Health[facility] | | | | | | 8 | r | | | deficienc | deficienc | | 04:54:49 | Physician | | | y | y | | 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 | [facility] | | | | | | | [facility] | | | | | | | [facility] | + + + + + + + | [phone] | Low back | Low back | | | Health[facility] | | | pain | pain | | 8 | r | | | | | | 08:57:37 | Physician | | | | | | AM CDT - | s [facility] | | | | | | | [facility] | | | | | | 9 | [place] | | | | | | 12:00:00 | | | | | | | 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 | | + + + + + + + | [phone] | Chronic | Chronic | | | [facility] | | | kidney | kidney | | 8 | r | | | disease | disease | | 10:32:41 | Physician | | | stage 4 | stage 4 | | 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 - | s Hot | | | | | | | [facility] | | | | | | 9 | [facility] | | | | | | 12:00:00 | | | | | | | 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 | | + + + + + + + | 250.40 | Stage 4 | Stage 4 | Problem | | National | | | chronic | chronic | | | Park | | | kidney | kidney | | | Medical | | | disease | disease | | | Center | | | due to | due to | | | (NP) | | | type 2 | type 2 | | | Hospital | | | diabetes | diabetes | | | | | | mellitus | mellitus | | | | + + + + + + + | 250.00 | 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) | | | emia | emia | | | Hospital | + + + + + + + | [phone] | Coronary | Coronary | Problem | | National | | | artery | artery | | | [facility] | | | disease | disease | | | Medical | | | | | | | Center | | | | | | | ([facility]) | | | | | | | Hospital | + + + + + + + | 428.0 | Congestiv | Congestiv | Problem | | National | | | e heart | e heart | | | [facility] | | | failure | failure | | | Medical | | | | | | | Center | | | | | | | ([facility]) | | | | | | | Hospital | + + + + + + + | 401.9 | Hypertens | Hypertens | Problem | | [facility] | | | ion | ion | | | [facility] | | | | | | | Center | | | | | | | (NP) | | | | | | | Hospital | + + + + + + + | 585.6 | End-stage | End-stage | Problem | | National | | | renal | renal | | | [facility] | | | disease | disease | | | Medical | | | | | | | Center | | | | | | | (NP) | | | | | | | Hospital | + + + + + + + | 682.6 | Celluliti | Celluliti | Problem | | National | | | s of | s of | | | [facility] | | | right | right | | | Medical | | | lower | lower | | | Center | | | extremity | extremity | | | (NP) | | | | | | | Hospital | + + + + + + + | | | | | | National | | | | | | | [facility] | [facility] | | | | | | | Center | | | | | | | (NP) | | | | | | | Hospital | + + + + + + + | | | | | | National | | | | | | | [facility] | [facility] | [facility] | | | | | | | Center | | | | | | | ([facility]) | | | | | | | Hospital | + + + + + + + | 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 | | [facility] | | abetes_me | diabetes | diabetes | | | r | | llitus_wi | mellitus | mellitus | | | Physician | | th_other_ | with | with | | | s Hot | | skin_comp | other | other | | | [facility] | | lications | skin | skin | | | Sadaf | | | complicat | complicat | | | | | | ions | ions | | | | + + + + + + + | CHRONIC_O | CHRONIC | CHRONIC | Diagnosis | | National | | BSTRUCTIV | OBSTRUCTI | OBSTRUCTI | | | [facility] | | E_PULMONA | VE | VE | | | Medical | | RY_DISEAS | PULMONARY | PULMONARY | | | Center | | E,_U | DISEASE, | DISEASE, | | | ([facility]) | | | U | U | | | Hospital | + + + + + + + | DEPENDENC | DEPENDENC | DEPENDENC | Diagnosis | | National | | E_ON_RENA | E ON | E ON | | | [facility] | | L_DIALYSI | RENAL | RENAL | | | Medical | | S | DIALYSIS | DIALYSIS | | | Center | | | | | | | ([facility]) | | | | | | | Hospital | + + + + + + + | HYPERTENS | HYPERTENS | HYPERTENS | Diagnosis | | National | | IVE_CHRON | ANDREA | ANDREA | | | [facility] | | IC_KIDNEY | CHRONIC | CHRONIC | | | Medical | | _DISEASE_ | KIDNEY | KIDNEY | | | Center | | W_ST | DISEASE W | DISEASE W | | | ([facility]) | | | ST | ST | | | Hospital | + + + + + + + | OTH_DIABE | OTH | OTH | Diagnosis | | National | | TES_MELLI | DIABETES | DIABETES | | | [facility] | | TUS_WITH_ | MELLITUS | MELLITUS | | | Medical | | DIABETIC_ | WITH | WITH | | | Center | | CABLE INSTALLER REPAIRER HELPER | DIABETIC | DIABETIC | | | ([facility]) | | | CABLE INSTALLER REPAIRER HELPER | CABLE INSTALLER REPAIRER HELPER | | | Hospital | + + + + + + + | CELLULITI | CELLULITI | CELLULITI | Diagnosis | | National | | S_OF_RIGH | S OF | S OF | | | [facility] | | T_LOWER_L | RIGHT | RIGHT | | | Medical | | IMB | LOWER | LOWER | | | Center | | | LIMB | LIMB | | | ([facility]) | | | | | | | Hospital | + + + + + + + | CELLULITI | CELLULITI | CELLULITI | Diagnosis | | National | | S_OF_LEFT | S OF LEFT | S OF LEFT | | | [facility] | | _LOWER_LI | LOWER | LOWER | | | Medical | | MB | LIMB | LIMB | | | Center | | | | | | | ([facility]) | | | | | | | Hospital | + + + + + + + | END_STAGE | END STAGE | END STAGE | Diagnosis | | National | | _RENAL_DI | RENAL | RENAL | | | [facility] | | SEASE | DISEASE | DISEASE | | | Medical | | | | | | | Center | | | | | | | ([facility]) | | | | | | | Hospital | + + + + + + + | OTHER_SPE | OTHER | OTHER | Diagnosis | | National | | CIFIED_MY | SPECIFIED | SPECIFIED | | | [facility] | | OPATHIES | | | | | Medical | | | MYOPATHIE | MYOPATHIE | | | Center | | | S | S | | | ([facility]) | | | | | | | Hospital | + + + + + + + | MYOPATHY, | MYOPATHY, | MYOPATHY, | Diagnosis | | National | | _UNSPECIF | | | | | [facility] | | IED | UNSPECIFI | UNSPECIFI | | | Medical | | | ED | ED | | | Center | | | | | | | ([facility]) | | | | | | | Hospital | + + + + + + + | OTH_BACTE | OTH | OTH | Diagnosis | | National | | RIAL_AGEN | BACTERIAL | BACTERIAL | | | [facility] | | TS_AS_THE | AGENTS | AGENTS | | | Medical | | _CAUSE_OF | THE | THE | | | Center | | _DIS | CAUSE OF | CAUSE OF | | | ([facility]) | | | DIS | DIS | | | Hospital | + + + + + + + | HYPERLIPI | HYPERLIPI | HYPERLIPI | Diagnosis | | National | | DEMIA,_UN | DEMIA, | DEMIA, | | | [facility] | | SPECIFIED | UNSPECIFI | UNSPECIFI | | | Medical | | | ED | ED | | | Center | | | | | | | ([facility]) | | | | | | | [facility] | + + + + + + + | RHEUMATIC | RHEUMATIC | RHEUMATIC | Diagnosis | | National | | _DISORDER | | | | | [facility] | | S_OF_BOTH | DISORDERS | DISORDERS | | | Medical | | _MITRAL_A | OF BOTH | OF BOTH | | | Center | | ND_T | MITRAL | MITRAL | | | ([facility]) | | | AND T | AND T | | | Hospital | + + + + + + + | ATHSCL_HE | ATHSCL | ATHSCL | Diagnosis | | National | | ART_DISEA | HEART | HEART | | | [facility] | | SE_OF_NAT | DISEASE | DISEASE | | | Medical | | IVE_CORON | [place] | | | Center | | VICKY | CORONARY | CORONARY | | | (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) | | | E | E | | | Hospital | + + + + + + + | URINARY_T | URINARY | URINARY | Diagnosis | | National | | RACT_INFE | TRACT | TRACT | | | [facility] | | CTION,_SI | INFECTION | INFECTION | | | Medical | | TE_NOT_SP | , SITE | , SITE | | | Center | | ECIF | NOT | NOT | | | ([facility]) | | | SPECIF | SPECIF | | | Hospital | + + + + + + + | CHRONIC_O | CHRONIC | CHRONIC | Diagnosis | | National | | BSTRUCTIV | OBSTRUCTI | OBSTRUCTI | | | [facility] | | E_PULMONA | VE | VE | | | Medical | | RY_DISEAS | PULMONARY | PULMONARY | | | Center | | E_W | DISEASE | DISEASE | | | ([facility]) | | | W | W | | | Hospital | + + + + + + + | HYPO-OSMO | HYPO-OSMO | HYPO-OSMO | Diagnosis | | National | | LALITY_AN | LALITY | LALITY | | | [facility] | | D_HYPONAT | AND | AND | | | Medical | | REMIA | HYPONATRE | HYPONATRE | | | Center | | | DANA | DANA | | | ([facility]) | | | | | | | Hospital | + + + + + + + | NICOTINE_ | NICOTINE | NICOTINE | Diagnosis | | National | | DEPENDENC | DEPENDENC | DEPENDENC | | | [facility] | | E,_CIGARE | E, | E, | | | Medical | | TTES,_WIT | CIGARETTE | CIGARETTE | | | Center | | H_[place] | S, WITH | S, WITH | | | ([facility]) | | | [place] | [place] | | | Hospital | + + + + + + + | CHRONIC_S | CHRONIC | CHRONIC | Diagnosis | | National | | YSTOLIC_( | SYSTOLIC | SYSTOLIC | | | [facility] | | CONGESTIV | (CONGESTI | (CONGESTI | | | Medical | | E)_HEART_ | VE) HEART | VE) HEART | | | Center | | FAIL | FAIL | FAIL | | | ([facility]) | | | | | | | Hospital | + + + + + + + | HYP_HRT__ | HYP HRT | HYP HRT | Diagnosis | | National | | _CHR_KDNY | CHR KDNY | CHR KDNY | | | [facility] | | _DIS_W_HR | DIS W | DIS W | | | Medical | | T_FAIL_AN | HRT FAIL | HRT FAIL | | | Center | | D_W | AND W | AND W | | | ([facility]) | | | | | | | Hospital | + + + + + + + | METABOLIC | METABOLIC | METABOLIC | Diagnosis | | National | | _ENCEPHAL | | | | | [facility] | | OPATHY | ENCEPHALO | ENCEPHALO | | | Medical | | | TANK | TANK | | | Center | | | | | | | (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) | | | SKIN | SKIN | | | Hospital | + + + + + + + | [phone] | Celluliti | [phone] | Diagnosis | | National | | | s of | | | | [facility] | | | right | | | | Medical | | | lower | | | | Center | | | limb | | | | ([facility]) | | | | | | | Hospital | + + + + + + + | Altered_m | Altered | Altered | Diagnosis | | National | | ental_sta | mental | mental | | | [facility] | | tus,_unsp | status, | status, | | | Medical | | ecified | unspecifi | unspecifi | | | Center | | | ed | ed | | | Clinics | + + + + + + + | no_curren | no | no | Diagnosis | | National | | t_diagnos | current | current | | | [facility] | | is | diagnosis | diagnosis | | | Medical | | | | | | | Center | | | | | | | Clinics | + + + + + + + | Celluliti | Celluliti | Celluliti | Diagnosis | | [facility] | | s_of_unsp | s of | s of | | | r | | ecified_p | unspecifi | unspecifi | | | Physician | | art_of_li | ed part | ed part | | | s [facility] | | mb | of limb | of limb | | | [facility] | | | | | | | [place] | + + + + + + + | w_care | w care | w care | Diagnosis | | [facility] | | | | | | [facility] | | [facility] | | | | [facility] | | | | | | | [facility] | | | | | | [facility] | + + + + + + + | Chronic_k | Chronic | Chronic | Diagnosis | | [facility] | | idney_dis | kidney | kidney | | | r | | ease,_sta | disease, | disease, | | | Physician | | ge_5 | stage 5 | stage 5 | | | s [facility] | | | | | | | [facility] | | | | | | | [facility] | + + + + + + + | Athscl_he | Athscl | Athscl | Diagnosis | | National | | art_disea | heart | heart | | | [facility] | | se_of_nat | disease | disease | | | Medical | | ive_coron | [facility] [place] | | | Center | | ary_arter | coronary | coronary | | | Clinics | | y_w/o_ang | artery | artery | | | | | _pctrs | w/o ang | w/o ang | | | | | | pctrs | pctrs | | | | + + + + + + + | wc | wc | wc | Diagnosis | | [facility] 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 | | | | | | | [facility] | | | | | | | [facility] | | | | | | | [facility] | | | | | | [facility] | + + + + + + + | Other_spe | Other | Other | Diagnosis | | [facility] | | cified_di | specified | specified | | | [facility] | | sorders_o | | | | | [facility] | | f_arterie | disorders | disorders | | | [facility] | | s_and_art | of | of | | | Hospital | | erioles | arteries | arteries | | | | | | and | and | | | | | | arteriole | arteriole | | | | | | s | s | | | | + + + + + + + | Other_acu | Other | Other | Diagnosis | | [facility] | | te_postpr | acute | acute | | | [facility] | | ocedural_ | postproce | postproce | | | [facility] | | pain | dural | dural | | | [facility] | | | pain | pain | | | Hospital | + + + + + + + | End_stage | End stage | End stage | Diagnosis | | [facility] | | _renal_di | renal | renal | | | [facility] | | sease | disease | disease | | | [facility] | | | | | | | [facility] | | | | | | | [facility] | + + + + + + + | Mixed_hyp | Mixed | Mixed | Diagnosis | | [facility] | | erlipidem | hyperlipi | hyperlipi | | | [facility] | | ia | demia | demia | | | [facility] | | | | | | | [facility] | | | | | | | [facility] | + + + + + + + | Acquired_ | Acquired | Acquired | Diagnosis | | [facility] | | absence_o | absence | absence | | | [facility] | | f_unspeci | of | of | | | [facility] | | fied_leg_ | unspecifi | unspecifi | | | [facility] | | above_kne | ed leg | ed leg | | | Hospital | | e | above | above | | | | | | knee | knee | | | | + + + + + + + | Gangrene, | Gangrene, | Gangrene, | Diagnosis | | [facility] | | _not_else | not | not | | | [facility] | | where_cla | elsewhere | elsewhere | | | [facility] | | ssified | | | | | [facility] | | | classifie | classifie | | | Hospital | | | d | d | | | | + + + + + + + | Resistanc | Resistanc | Resistanc | Diagnosis | | [facility] | | e_to_mult | e to | e to | | | [facility] | | iple_anti | multiple | multiple | | | [facility] | | biotics | antibioti | antibioti | | | [facility] | | | cs | cs | | | Hospital | + + + + + + + | Bacterial | Bacterial | Bacterial | Diagnosis | | [facility] | | _infectio | | | | | [facility] | | n,_unspec | infection | infection | | | [facility] | | ified | , | , | | | [facility] | | | unspecifi | unspecifi | | | Hospital | | | ed | ed | | | | + + + + + + + | Other_dis | Other | Other | Diagnosis | | [facility] | | orders_of | disorders | disorders | | | [facility] | | _electrol | of | of | | | [facility] | | yte_and_f | electroly | electroly | | | [facility] | | luid_bala | te and | te and | | | Hospital | | nce,_not_ | fluid | fluid | | | | | elsewhere | balance, | balance, | | | | | _classifi | not | not | | | | | ed | elsewhere | elsewhere | | | | | | | | | | | | | classifie | classifie | | | | | | d | d | | | | + + + + + + + | Transient | Transient | Transient | Diagnosis | | [facility] | | _alterati | | | | | [facility] | | on_of_awa | alteratio | alteratio | | | [facility] | | reness | n of | n of | | | [facility] | | | awareness | awareness | | | Hospital | + + + + + + + | Hematuria | Hematuria | Hematuria | Diagnosis | | [facility] | | ,_unspeci | , | , | | | [facility] | | fied | unspecifi | unspecifi | | | [facility] | | | ed | ed | | | [facility] | | | | | | | [facility] | + + + + + + + | Urinary_t | Urinary | Urinary | Diagnosis | | [facility] | | ract_infe | tract | tract | | | [facility] | | ction,_si | infection | infection | | | [facility] | | te_not_sp | , site | , site | | | [facility] | | ecified | not | not | | | Hospital | | | specified | specified | | | | + + + + + + + | Sepsis,_u | Sepsis, | Sepsis, | Diagnosis | | [facility] | | nspecifie | unspecifi | unspecifi | | | [facility] | | d_organis | ed | ed | | | [facility] | | m | organism | organism | | | [facility] | | | | | | | [facility] | + + + + + + + | Anemia,_u | Anemia, | Anemia, | Diagnosis | | [facility] | | nspecifie | unspecifi | unspecifi | | | [facility] | | d | ed | ed | | | Hot | | | | | | | [facility] | | | | | | | [facility] | + + + + + + + | Chronic_k | Chronic | Chronic | Diagnosis | | [facility] | | idney_dis | kidney | kidney | | | [facility] | | ease,_uns | disease, | disease, | | | [facility] | | pecified | unspecifi | unspecifi | | | [facility] | | | ed | ed | | | Hospital | + + + + + + + | Acute_kid | Acute | Acute | Diagnosis | | [facility] | | ney_failu | kidney | kidney | | | [facility] | | re,_unspe | failure, | failure, | | | [facility] | | cified | unspecifi | unspecifi | | | [facility] | | | ed | ed | | | Hospital | + + + + + + + | Local_inf | Local | Local | Diagnosis | | [facility] | | ection_of | infection | infection | | | [facility] | | _the_skin | of the | of the | | | [facility] | | _and_subc | skin and | skin and | | | [facility] | | utaneous_ | subcutane | subcutane | | | Hospital | | tissue,_u | ous | ous | | | | | nspecifie | tissue, | tissue, | | | | | d | unspecifi | unspecifi | | | | | | ed | ed | | | | + + + + + + + | Other_inj | Other | Other | Diagnosis | | [facility] | | ury_of_un | injury of | injury of | | | [facility] | | specified | | | | | [facility] | | _body_reg | unspecifi | unspecifi | | | [facility] | | ion,_init | ed body | ed body | | | Hospital | | ial_encou | region, | region, | | | | | nter | initial | initial | | | | | | encounter | encounter | | | | + + + + + + + | Displaced | Displaced | Displaced | Diagnosis | | [facility] | | _bicondyl | | | | | [facility] | | ar_fractu | bicondyla | bicondyla | | | [facility] | | re_of_uns | r | r | | | [facility] | | pecified_ | fracture | fracture | | | Hospital | | tibia,_in | of | of | | | | | itial_enc | unspecifi | unspecifi | | | | | ounter_fo | ed tibia, | ed tibia, | | | | | r_closed | initial | initial | | | | | | encounter | encounter | | | | | | for | for | | | | | | closed | closed | | | | | | fracture | fracture | | | | + + + + + + + | Chronic_k | Chronic | Chronic | Diagnosis | | [facility] | | idney_dis | kidney | kidney | | | [facility] | | ease,_sta | disease, | disease, | | | [facility] | | ge_3_(mod | stage 3 | stage 3 | | | [facility] | | erate) | (moderate | (moderate | | | Hospital | | | ) | ) | | | | + + + + + + + | Hypertens | Hypertens | Hypertens | Diagnosis | | [facility] | | ive_chron | andrea | andrea | | | [facility] | | ic_kidney | chronic | chronic | | | [facility] | | _disease_ | kidney | kidney | | | [facility] | | with_stag | disease | disease | | | Hospital | | e_1_throu | with | with | | | | | gh_stage_ | stage 1 | stage 1 | | | | | 4_chronic | through | through | | | | | _kidney | stage 4 | stage 4 | | | | | | chronic | chronic | | | | | | kidney | kidney | | | | | | disease, | disease, | | | | | | or | or | | | | | | unspecifi | unspecifi | | | | | | ed | ed | | | | | | chronic | chronic | | | | | | kidney | kidney | | | | | | disease | disease | | | | + + + + + + + | Chronic_c | Chronic | Chronic | Diagnosis | | [facility] | | ombined_s | combined | combined | | | [facility] | | ystolic_( | systolic | systolic | | | [facility] | | congestiv | (congesti | (congesti | | | [facility] | | e)_and_di | ve) and | ve) and | | | Hospital | | astolic_( | diastolic | diastolic | | | | | congestiv | | | | | | | e)_heart_ | (congesti | (congesti | | | | | failure | ve) heart | ve) heart | | | | | | failure | failure | | | | + + + + + + + | Hypo-osmo | Hypo-osmo | Hypo-osmo | Diagnosis | | [facility] 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 | | abetes_me | diabetes | diabetes | | | [facility] | | llitus_wi | mellitus | mellitus | | | [facility] | | th_hyperg | with | with | | | [facility] | | lycemia | hyperglyc | hyperglyc | | | Hospital | | | emia | emia | | | | + + + + + + + | Other_fra | Other | Other | Diagnosis | | [facility] | | cture_of_ | fracture | fracture | | | [facility] | | upper_and | of upper | of upper | | | [facility] | | _lower_en | and lower | and lower | | | [facility] | | d_of_left | end of | end of | | | Hospital | | _fibula,_ | left | left | | | | | initial_e | fibula, | fibula, | | | | | ncounter_ | initial | initial | | | | | for_clos | encounter | encounter | | | | | | for | for | | | | | | closed | closed | | | | | | fracture | fracture | | | | + + + + + + + | Unspecifi | Unspecifi | Unspecifi | Diagnosis | | [facility] | | ed_fractu | ed | ed | | | [facility] | | re_of_upp | fracture | fracture | | | [facility] | | er_end_of | of upper | of upper | | | [facility] | | _left_tib | end of | end of | | | Hospital | | ia,_initi | left | left | | | | | al_encoun | tibia, | tibia, | | | | | ter_for_c | initial | initial | | | | | losed_fr | encounter | encounter | | | | | | for | for | | | | | | closed | closed | | | | | | fracture | fracture | | | | + + + + + + + | Nicotine_ | Nicotine | Nicotine | Diagnosis | | [facility] 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 | | abetes_me | diabetes | diabetes | | | [facility] | | llitus_wi | mellitus | mellitus | | | [facility] | | thout_com | without | without | | | [facility] | | plication | complicat | complicat | | | Hospital | | s | ions | ions | | | | + + + + + + + | Chest_pai | Chest | Chest | Diagnosis | | [facility] | | n,_unspec | pain, | pain, | | | [facility] | | ified | unspecifi | unspecifi | | | [facility] | | | ed | ed | | | [facility] | | | | | | | [facility] | + + + + + + + | Nicotine_ | Nicotine | Nicotine | Diagnosis | | [facility] | | dependenc | dependenc | dependenc | | | [facility] | | e,_cigare | e, | e, | | | [facility] | | ttes,_unc | cigarette | cigarette | | | [facility] | | omplicate | s, | s, | | | Hospital | | d | uncomplic | uncomplic | | | | | | ated | ated | | | | + + + + + + + | Tobacco_u | Tobacco | Tobacco | Diagnosis | | [facility] | | se | use | use | | | [facility] | | | | | | | [facility] | | | | | | | [facility] | | | | | | | [facility] | + + + + + + + | Hyperlipi | Hyperlipi | Hyperlipi | Diagnosis | | [facility] | | demia,_un | demia, | demia, | | | [facility] | | specified | unspecifi | unspecifi | | | [facility] | | | ed | ed | | | [facility] | | | | | | | [facility] | + + + + + + + | Essential | Essential | Essential | Diagnosis | | [facility] 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 | | abetes_me | diabetes | diabetes | | | [facility] | | llitus_wi | mellitus | mellitus | | | [facility] | | th_diabet | with | with | | | [facility] | | ic_neurop | diabetic | diabetic | | | Hospital | | athy,_uns | neuropath | neuropath | | | | | pecified | y, | y, | | | | | | unspecifi | unspecifi | | | | | | ed | ed | | | | + + + + + + + | Edema,_un | Edema, | Edema, | Diagnosis | | [facility] | | specified | unspecifi | unspecifi | | | r | | | ed | ed | | | Physician | | | | | | | s Hot | | | | | | | [facility] | | | | | | | [place] | + + + + + + + | Periphera | Periphera | Periphera | Diagnosis | | [facility] | | l_vascula | l | l | | | r | | r_disease | vascular | vascular | | | Physician | | ,_unspeci | disease, | disease, | | | s [facility] | | fied | unspecifi | unspecifi | | | [facility] | | | ed | ed | | | [place] | + + + + + + + | Pain_in_r | Pain in | Pain in | Diagnosis | | [facility] | | ight_leg | right leg | right leg | | | r | | | | | | | Physician | | | | | | | s Hot | | | | | | | [facility] | | | | | | | [place] | + + + + + + + | Unspecifi | Unspecifi | Unspecifi | Diagnosis | | [facility] | | ed_abdomi | ed | ed | | | r | | nal_pain | abdominal | abdominal | | | Physician | | | pain | pain | | | s Hot | | | | | | | [facility] | | | | | | | [facility] | + + + + + + + | 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 | | [facility] | | abetes_me | diabetes | diabetes | | | r | | llitus_wi | mellitus | mellitus | | | Physician | | th_hyperg | with | with | | | s [facility] | | lycemia | hyperglyc | hyperglyc | | | [facility] | | | emia | emia | | | [place] | + + + + + + + | Rheumatic | Rheumatic | Rheumatic | Diagnosis | | [facility] | | _disorder | | | | [facility] | | s_of_both | disorders | disorders | | | [facility] | | _mitral_a | of both | of both | | | Center | | nd_tricus | mitral | mitral | | | Clinics | | pid_valve | and | and | | | | | s | tricuspid | tricuspid | | | | | | valves | valves | | | | + + + + + + + | Encntr_fo | Encntr | Encntr | Diagnosis | | [facility] | | r_general | for | for | | | r | | _adult_me | general | general | | | Physician | | dical_exa | adult | adult | | | s [facility] | | m_w/o_abn | medical | medical | | | [facility] | | ormal_fin | exam w/o | exam w/o | | | [place] | | dings | abnormal | abnormal | | | | | | findings | findings | | | | + + + + + + + | Edema,_un | Edema, | Edema, | Diagnosis | | [facility] | | specified | unspecifi | unspecifi | | | [facility] | | | ed | ed | | | Medical | | | | | | | Center | | | | | | | Clinics | + + + + + + + | Diarrhea, | Diarrhea, | Diarrhea, | Diagnosis | | [facility] | | _unspecif | | | | | r | | ied | unspecifi | unspecifi | | | Physician | | | ed | ed | | | s Hot | | | | | | | [facility] | | | | | | | [place] | + + + + + + + | Hypersomn | Hypersomn | Hypersomn | Diagnosis | | [facility] | | ia,_unspe | ia, | ia, | | | r | | cified | unspecifi | unspecifi | | | Physician | | | ed | ed | | | s Hot | | | | | | | [facility] | | | | | | | [place] | + + + + + + + | Chronic_k | Chronic | Chronic | Diagnosis | | [facility] | | idney_dis | kidney | kidney | | | r | | ease,_sta | disease, | disease, | | | Physician | | ge_4_(sev | stage 4 | stage 4 | | | s [facility] | | ere) | (severe) | (severe) | | | [facility] | | | | | | | [place] | + + + + + + + | Other_fat | Other | Other | Diagnosis | | [facility] | | igue | fatigue | fatigue | | | r | | | | | | | Physician | | | | | | | s Hot | | | | | | | [facility] | | | | | | | [facility] | + + + + + + + | Acute_sin | Acute | Acute | Diagnosis | | [facility] | | usitis,_u | sinusitis | sinusitis | | | r | | nspecifie | , | , | | | Physician | | d | unspecifi | unspecifi | | | s [facility] | | | ed | ed | | | [facility] | | | | | | | [place] | + + + + + + + | Mixed_hyp | Mixed | Mixed | Diagnosis | | [facility] | | erlipidem | hyperlipi | hyperlipi | | | r | | ia | demia | demia | | | Physician | | | | | | | s Hot | | | | | | | [facility] | | | | | | | [facility] | + + + + + + + | Ocasio's_pa | Ocasio's | Ocasio's | Diagnosis | | [facility] | | lsy | palsy | palsy | | | r | | | | | | | Physician | | | | | | | s Hot | | | | | | | [facility] | | | | | | | [facility] | + + + + + + + | End_stage | End stage | End stage | Diagnosis | | [facility] | | _renal_di | renal | renal | | | [facility] | | sease | disease | disease | | | Clinic | | | | | | | Family | | | | | | | Medicine | | | | | | | - | | | | | | | [facility] | | | | | | | [facility] | + + + + + + + | End_stage | End stage | End stage | Diagnosis | | [facility] | | _renal_di | renal | renal | | | [facility] | | sease | disease | disease | | | Clinics | + + + + + + + | Phantom_l | Phantom | Phantom | Diagnosis | | [facility] | | imb_syndr | limb | limb | | | [facility] | | ome_with_ | syndrome | syndrome | | | Clinic | | pain | with pain | with pain | | | Family | | | | | | | Medicine | | | | | | | - | | | | | | | [facility] | | | | | | | [facility] | + + + + + + + | Pain_in_l | Pain in | Pain in | Diagnosis | | [facility] | | eft_arm | left arm | left arm | | | [facility] | | | | | | | Clinic | | | | | | | Family | | | | | | | Medicine | | | | | | | - | | | | | | | [facility] | | | | | | | [facility] | + + + + + + + | Essential | Essential | Essential | Diagnosis | | [facility] | | _(primary | | | | | [facility] | | )_hyperte | (primary) | (primary) | | | Clinic | | nsion | | | | | Family | | | hypertens | hypertens | | | Medicine | | | ion | ion | | | - | | | | | | | [facility] | | | | | | | [facility]aman | + + + + + + + | Chronic_k | Chronic | Chronic | Diagnosis | | [facility] 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 | | abetes_me | diabetes | diabetes | | | [facility] | | llitus_wi | mellitus | mellitus | | | Clinic | | th_diabet | with | with | | | Family | | ic_neurop | diabetic | diabetic | | | Medicine | | athy,_uns | neuropath | neuropath | | | - | | pecified | y, | y, | | | [facility] | | | unspecifi | unspecifi | | | [facility]aman | | | ed | ed | | | | + + + + + + + | Pain_In_L | Pain In | Pain In | Diagnosis | | [facility] | | eft_Arm | Left Arm | Left Arm | | | [facility] | | | | | | | [facility] | | | | | | | Family | | | | | | | Medicine | | | | | | | - | | | | | | | [facility] | | | | | | | raman | + + + + + + + | Generaliz | Generaliz | Generaliz | Diagnosis | | [facility] | | ed_anxiet | ed | ed | | | [facility] | | y_disorde | anxiety | anxiety | | | Clinic | | r | disorder | disorder | | | Family | | | | | | | Medicine | | | | | | | - | | | | | | | [facility] | | | | | | | [facility]aman | + + + + + + + | Pure_hype | Pure | Pure | Diagnosis | | [facility] | | rcholeste | hyperchol | hyperchol | | | [facility] | | rolemia,_ | esterolem | esterolem | | | Clinic | | unspecifi | ia, | ia, | | | Family | | ed | unspecifi | unspecifi | | | Medicine | | | ed | ed | | | - | | | | | | | [facility] | | | | | | | raman | + + + + + + + | Pain_In_L | Pain In | Pain In | Diagnosis | | [facility] | | eft_Arm | Left Arm | Left Arm | | | [facility] | | | | | | [facility]ics | + + + + + + + | Mixed_inc | Mixed | Mixed | Diagnosis | | [facility] | | ontinence | incontine | incontine | | | [facility] | | | nce | nce | | | Clinic | | | | | | | Family | | | | | | | Medicine | | | | | | | - | | | | | | | [place] | | | | | | | raman | + + + + + + + | Acquired_ | Acquired | Acquired | Diagnosis | | [facility] | | absence_o | absence | absence | | | [facility] | | f_left_le | of left | of left | | | Clinic | | g_above_k | leg above | leg above | | | Family | | nee | knee | knee | | | Medicine | | | | | | | - | | | | | | | [place] | | | | | | | raman | + + + + + + + | Disorder_ | Disorder | Disorder | Diagnosis | | [facility] | | of_arteri | of | of | | | [facility] | | es_and_ar | arteries | arteries | | | Clinics | | terioles, | and | and | | | | | _unspecif | arteriole | arteriole | | | | | ied | s, | s, | | | | | | unspecifi | unspecifi | | | | | | ed | ed | | | | + + + + + + + | Constipat | Constipat | Constipat | Diagnosis | | [facility] | | ion,_unsp | ion, | ion, | | | [facility] | | ecified | unspecifi | unspecifi | | | Hot | | | ed | ed | | | [facility] | | | | | [facility] | + + + + + + + | Constipat | Constipat | Constipat | Diagnosis | | [facility] | | ion,_unsp | ion, | ion, | | | [facility] | | ecified_c | unspecifi | unspecifi | | | Hot | | onstipati | ed | ed | | | [facility] | | on_type | constipat | constipat | | | Hospital | | | ion type | ion type | | | | + + + + + + + | Back_and_ | Back and | Back and | Diagnosis | | [facility] | | Side_Pain | Side | Side | | | [facility] | | .... | Pain.... | Pain.... | | | Hot | | | | | | | [facility] | | [facility] | | [facility] | + + + + + + + | [phone] | [phone] | [id number] | Diagnosis | | [facility] | | | | | | | [facility] | | | | | | | [facility] | | | | | | | [facility] | + + + + + + + | [id number] | [id number] | [id number] | Diagnosis | | [facility] | | | | | | | [facility] | | | | | | | [facility] | | | | | | | [facility] | + + + + + + + | [id number] | [phone] | [phone] | Diagnosis | | [facility] | | | | | | | [facility] | | | | | | | [facility] | | | | | | | [facility] | + + + + + + + | [id number] | [id number] | [phone] | Diagnosis | | [facility] | | | | | | | [facility] | | | | | | | [facility] | | | | | | | [facility] | + + + + + + + | [id number] | [id number] | [phone] | Diagnosis | | [facility] | | | | | | | [facility] | | | | | | | [facility] | | | | | | | [facility] | + + + + + + + | [id number] | [id number] | [id number] | Diagnosis | | [facility] | | | | | | | [facility] | | | | | | | [facility] | | | | | | | [facility] | + + + + + + + | [phone] | [id number] | [id number] | Diagnosis | | [facility] | | | | | | | [facility] | | | | | | | [facility] | | | | | | | [facility] | + + + + + + + | [phone] | [id number] | [phone] | Diagnosis | | [facility] | | | | | | | [facility] | | | | | | | [facility] | | | | | | | [facility] | + + + + + + + | [id number] | [id number] | [phone] | Diagnosis | | [facility] | | | | | | | [facility] | | | | | | [facility] | | | | | | | [facility] | + + + + + + + | [id number] | [phone] | [phone] | Diagnosis | | [facility] | | | | | | | [facility] | | | | | | [facility] | | | | | | | [facility] | + + + + + + + | [id number] | [phone] | [phone] | Diagnosis | | [facility] | | | | | | | [facility] | | | | | | [facility] | | | | | | | [facility] | + + + + + + + | [id number] | [id number] | [phone] | Diagnosis | | [facility] | | | | | | [facility] | | | | | | [facility] | | | | | | | [facility] | + + + + + + + | [id number] | [id number] | [phone] | Diagnosis | | [facility] | | | | | | | [facility] | | | | | | | [facility] | | | | | | | [facility] | + + + + + + + | [id number] | [id number] | [phone] | Diagnosis | | [facility] | | | | | | | [facility] | | | | | | | [facility] | | | | | | | [facility] | + + + + + + + | [id number] | [phone] | [id number] | Diagnosis | | [facility] | | | | | | | [facility] | | | | | | | [facility] | | | | | | | [facility] | + + + + + + + | [id number] | [phone] | [phone] | Diagnosis | | [facility] | | | | | | | [facility] | | | | | | | [facility] | | | | | | | [facility] | + + + + + + + | [id number] | [id number] | [phone] | Diagnosis | | [facility] | | | | | | | [facility] | | | | | | [facility] | | | | | | | [facility] | + + + + + + + | [id number] | [id number] | [phone] | Diagnosis | | [facility] | | | | | | | [facility] | | | | | | | [facility] | | | | | | | [facility] | + + + + + + + | [id number] | [phone] | [phone] | Diagnosis | | [facility] | | | | | | | [facility] | | | | | | | [facility] | | | | | | | [facility] | + + + + + + + | [id number] | [id number] | [phone] | Diagnosis | | [facility] | | | | | | [facility] | | | | | | [facility] | | | | | | | [facility] | + + + + + + + | [id number] | [phone] | [phone] | Diagnosis | | [facility] | | | | | | | [facility] | | | | | | [facility] | | | | | | | [facility] | + + + + + + + | [id number] | [id number] | [phone] | Diagnosis | | [facility] | | | | | | | [facility] | | | | | | | [facility] | | | | | | | [facility] | + + + + + + + | [phone] | [id number] | [phone] | Diagnosis | | [facility] | | | | | | | [facility] | | | | | | [facility] | | | | | | | [facility] | + + + + + + + | [id number] | 35780943 | [phone] | Diagnosis | | [facility] | | | [facility] | | | | | | [facility] | | | | | | | [facility] | + + + + + + + | [id number] | [id number] | [phone] | Diagnosis | | [facility] | | | | [facility] | | | | | | [facility] | | | | | | | [facility] | + + + + + + + | [phone] | [phone] | [phone] | Diagnosis | | [facility] | | | [facility] | | | | | | [facility] | | | | | | | [facility] | + + + + + + + | [phone] | [id number] | [phone] | Diagnosis | | [facility] | | | | | [facility] | | | | | | [facility] | | | | | | | [facility] | + + + + + + + | 53408192 | [id number] | [phone] | Diagnosis | | [facility] | | | | | | [facility] | | | | | | [facility] | | | | | | | [facility] | + + + + + + + | [phone] | [phone] | [phone] | Diagnosis | | [facility] | | | [facility] | [facility] | | | | [facility] | | | | | | | [facility] | + + + + + + + | [id number] | [id number] | [phone] | Diagnosis | | [facility] | | | | | [facility] | | | | | | [facility] | | | | | | | [facility] | + + + + + + + | [id number] | [id number] | [phone] | Diagnosis | | [facility] | | | [facility] | | | | | | [facility] | | | | | | | [facility] | + + + + + + + | [phone] | [phone] | [phone] | Diagnosis | | [facility] | | [facility] | | | | | [facility] | | | | | | | [facility] | + + + + + + + | [phone] | [id number] | [phone] | Diagnosis | | [facility] | [facility] | | | | | | [facility] | | | | | | | [facility] | + + + + + + + | [id number] | [id number] | [phone] | Diagnosis | | [facility] | + + + + + + + | [phone] | [phone] | [phone] | Diagnosis | | [facility] | + + + + + + + | [phone] | [phone] | [phone] | Diagnosis | | [facility] | + + + + + + + | [phone] | [phone] | [phone] | Diagnosis | | [facility] | + + + + + + + | [phone] | [phone] | [phone] | Diagnosis | | [facility] | + + + + + + + | [phone] | [phone] | [id number] | Diagnosis | | [facility] | + + + + + + + | [phone] | [phone] | [phone] | Diagnosis | | [facility] | + + + + + + + | [phone] | [phone] | [phone] | Diagnosis | | [facility] | + + + + + + + | [phone] | [id number] | [phone] | Diagnosis | | [facility] | + + + + + + + | [phone] | [phone] | [phone] | Diagnosis | | [facility] | + + + + + + + | [id number] | [phone] | [phone] | Diagnosis | | [facility] | + + + + + + + | [id number] | [phone] | [phone] | Diagnosis | | [facility] | + + + + + + + | [phone] | [phone] | [phone] | Diagnosis | | [facility] | + + + + + + + | [phone] | [phone] | [phone] | Diagnosis | | [facility] | + + + + + + + | [phone] | [phone] | [phone] | Diagnosis | | [facility] | + + + + + + + | [phone] | [phone] | [phone] | Diagnosis | | [facility] | + + + + + + + | [phone] | [phone] | [phone] | Diagnosis | | [facility] | + + + + + + + | [phone] | [phone] | [phone] | Diagnosis | | [facility] | + + + + + + + | [phone] | [phone] | [phone] | Diagnosis | | [facility] | + + + + + + + | [phone] | [phone] | [phone] | Diagnosis | | [facility] | + + + + + + + | [id number] | [phone] | [phone] | Diagnosis | | [facility] | + + + + + + + | [phone] | [phone] | [phone] | Diagnosis | | [facility] | + + + + + + + | [phone] | [phone] | [phone] | Diagnosis | | [facility] | + + + + + + + | [phone] | [phone] | [phone] | Diagnosis | | [facility] | + + + + + + + | [phone] | [phone] | [phone] | Diagnosis | | [facility] | + + + + + + + | [phone] | [phone] | [phone] | Diagnosis | | [facility] | + + + + + + + | [phone] | [phone] | [phone] | Diagnosis | | [facility] | + + + + + + + | [phone] | [id number] | [phone] | Diagnosis | | [facility] | + + + + + + + | [phone] | [phone] | [phone] | Diagnosis | | [facility] | + + + + + + + | [phone] | [phone] | [phone] | Diagnosis | | [facility] | + + + + + + + | [phone] | [phone] | [phone] | Diagnosis | | [facility] | + + + + + + + | [phone] | [phone] | [phone] | Diagnosis | | [facility] | [facility] | + + + + + + + Surgeries/Procedures + + + + + + | Procedure | Description | Date | Indications | Data | | | | | | Source(s) | + + + + + + | | | 09/18/2019 | | National | | | | 12:00:00 AM | | [facility] | | | | SHEAR GRINDER OPERATOR | | Medical | | | | | | Center | | | | | | ([facility]) | | | | | | Hospital | + + + + + + | | | 09/13/2019 | | National | | | | 12:00:00 AM | | [facility] | | | | SHEAR GRINDER OPERATOR | | Medical | | | | | | Center | | | | | | (NP) | | | | | | Hospital | + + + + + + | | | | | National | | | | | | Park | | | | | | Medical | | | | | | Center | | | | | | ([facility]) | | | | | | Hospital | + + + + + + | | | | | National | | | | | | [facility] | | | | | | Medical | | | | | | Center | | | | | | (NP) | | | | | | Hospital | + + + + + + Results + + + + | ID | Date | Data Source | + + + + | [id number] | 09/23/2019 02:13:00 | [facility] | | [id number] | 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) | | | | Hospital | + + + + +---------+---------+-------+---------+---------+---------+---------+ | Name | Value | Range | Interpr | Descrip | Data | Support | | | | | etation | tion | Source( | ing | | | | | Code | | s) | Documen | | | | | | | | t(s) | +---------+---------+-------+---------+---------+---------+---------+ | Blood | [facility] | | | | [facility] | | | Culture | AND | | | | [facility] | | | | [facility] | | | | Medical | | | | IC | | | | Center | | | | BOTTLES | | | | ([facility]) | | | | :NO | | | | | | | | GROWTH | | | | Hospita | | | | AT FIVE | | | | l | | | | (5) | | | | | | | | DAYS. | | | | | | +---------+---------+-------+---------+---------+---------+---------+ + + + + | ID | Date | Data Source | + + + + | [id number] | 09/23/2019 02:13:00 | [facility] | | [id number] | 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) | | | | Hospital | + + + + +---------+---------+-------+---------+---------+---------+---------+ | Name | Value | Range | Interpr | Descrip | Data | Support | | | | | etation | tion | Source( | ing | | | | | Code | | s) | Documen | | | | | | | | t(s) | +---------+---------+-------+---------+---------+---------+---------+ | Blood | [facility] | | | | [facility] | | | Culture | AND | | | | [facility] [place] | | | | ANAEROB | | | | Medical | | | | IC | | | | Center | | | | BOTTLES | | | | ([facility]) | | | | :NO | | | | | | | | GROWTH | | | | Hospita | | | | AT FIVE | | | | l | | | | (5) | | | | | | | | DAYS. | | | | | | +---------+---------+-------+---------+---------+---------+---------+ + + + + | ID | Date | Data Source | + + + + | [id number] | 09/23/2019 02:13:00 | [facility] | | [id number] | 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) | | | | Hospital | + + + + +---------+---------+-------+---------+---------+---------+---------+ | Name | Value | Range | Interpr | Descrip | Data | Support | | | | | etation | tion | Source( | ing | | | | | Code | | s) | Documen | | | | | | | | t(s) | +---------+---------+-------+---------+---------+---------+---------+ | Anaerob | NO | | | | [facility] | | | ic | GROWTH | | | | [facility] | | | Culture | AT 5 | | | | Medical | | | | DAYS. | | | | Center | | | | | | | | ([facility]) | | | | | | | | | | | | | | | | Hospita | | | | | | | | l | | +---------+---------+-------+---------+---------+---------+---------+ + + + + | ID | Date | Data Source | + + + + | [id number] | 09/23/2019 02:13:00 | [facility] | | [id number] | 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) | | | | Hospital | + + + + +---------+---------+-------+---------+---------+---------+---------+ | Name | Value | Range | Interpr | Descrip | Data | Support | | | | | etation | tion | Source( | ing | | | | | Code | | s) | Documen | | | | | | | | t(s) | +---------+---------+-------+---------+---------+---------+---------+ | Bacteri | PSEUDOM | | | | [facility] | | | a | ONAS | | | | [facility] | | | identif | PUTIDA | | | | Medical | | | ied in | | | | | Center | | | Wound | | | | | ([facility]) | | | by | | | | | | | | [facility] | | | | | Hospita | | | culture | | | | | l | | +---------+---------+-------+---------+---------+---------+---------+ + + + + | ID | Date | Data Source | + + + + | [id number] | 09/23/2019 02:13:00 | [facility] | | [id number] | 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) | | | | Hospital | + + + + +---------+---------+-------+---------+---------+---------+---------+ | Name | Value | Range | Interpr | Descrip | Data | Support | | | | | etation | tion | Source( | ing | | | | | Code | | s) | Documen | | | | | | | | t(s) | +---------+---------+-------+---------+---------+---------+---------+ | Bacteri | CITROBA | | | | [facility] | | | a | CTER | | | | [facility] | | | identif | YOUNGAE | | | | Medical | | | ied in | | | | | Center | | | Urine | | | | | ([facility]) | | | by | | | | | | | | Culture | | | | | Hospita | | | | | | | | l | | +---------+---------+-------+---------+---------+---------+---------+ | Bacteri | E. COLI | | | | [facility] | | | a | | | | | [facility] | | | identif | | | | | Medical | | | ied in | | | | | Center | | | Urine | | | | | ([facility]) | | | by | | | | | | | | Culture | | | | | Hospita | | | | | | | | l | | +---------+---------+-------+---------+---------+---------+---------+ + + + + | ID | Date | Data Source | + + + + | [id number] | 09/23/2019 02:13:00 | [facility] | | [id number] | 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) | | | | Hospital | + + + + +---------+-------+-------+---------+---------+---------+---------+ | Name | Value | Range | Interpr | Descrip | Data | Support | | | | | etation | tion | Source( | ing | | | | | Code | | s) | Documen | | | | | | | | t(s) | +---------+-------+-------+---------+---------+---------+---------+ | Bedside | 251 | | | | [facility] | | | | | | | | [facility] | | | Glucose | | | | | Medical | | | | | | | | [place] | | | | | | | | ([facility]) | | | | | | | | | | | | | | | | Hospita | | | | | | | | l | | +---------+-------+-------+---------+---------+---------+---------+ + + + + | ID | Date | Data Source | + + + + | [id number] | 09/23/2019 02:13:00 | [facility] | | [id number] | 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) | | | | Hospital | + + + + +---------+-------+-------+---------+---------+---------+---------+ | Name | Value | Range | Interpr | Descrip | Data | Support | | | | | etation | tion | Source( | ing | | | | | Code | | s) | Documen | | | | | | | | t(s) | +---------+-------+-------+---------+---------+---------+---------+ | Vancomy | 25.1 | | | | [facility] | | | paty | | | | | [facility] | | | [Mass/v | | | | | Medical | | | olume] | | | | | Center | | | in | | | | | ([facility]) | | | Serum | | | | | | | | or | | | | | Hospita | | | Plasma | | | | | l | | +---------+-------+-------+---------+---------+---------+---------+ + + + + | ID | Date | Data Source | + + + + | [id number] | 09/23/2019 02:13:00 | [facility] | | [id number] | 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) | | | | Hospital | + + + + +------+-------+-------+---------+---------+---------+---------+ | Name | Value | Range | Interpr | Descrip | Data | Support | | | | | etation | tion | Source( | ing | | | | | Code | | s) | Documen | | | | | | | | t(s) | +------+-------+-------+---------+---------+---------+---------+ | FiO2 | 40 | | | | [facility] | | | | | | | | [facility] | | | | | | | | Medical | | | | | | | | Center | | | | | | | | ([facility]) | | | | | | | | | | | | | | | | Hospita | | | | | | | | l | | +------+-------+-------+---------+---------+---------+---------+ + + + + | ID | Date | Data Source | + + + + | [id number] | 09/23/2019 02:13:00 | [facility] | | [id number] | 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) | | | | Hospital | + + + + +---------+-------+-------+---------+---------+---------+---------+ | Name | Value | Range | Interpr | Descrip | Data | Support | | | | | etation | tion | Source( | ing | | | | | Code | | s) | Documen | | | | | | | | t(s) | +---------+-------+-------+---------+---------+---------+---------+ | FiO2/Li | 3.00 | | | | [facility] | | | ters | | | | | [facility] | | | per | | | | | Medical | | | Minute | | | | | [place] | | | | | | | | ([facility]) | | | | | | | | | | | | | | | | Hospita | | | | | | | | l | | +---------+-------+-------+---------+---------+---------+---------+ + + + + | ID | Date | Data Source | + + + + | [id number] | 09/23/2019 02:13:00 | [facility] | | [id number] | 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) | | | | Hospital | + + + + +---------+---------+-------+---------+---------+---------+---------+ | Name | Value | Range | Interpr | Descrip | Data | Support | | | | | etation | tion | Source( | ing | | | | | Code | | s) | Documen | | | | | | | | t(s) | +---------+---------+-------+---------+---------+---------+---------+ | Arteria | Positiv | | | | [facility] | | | l | e | | | | [facility] | | | patency | | | | | Medical | | | Wrist | | | | | Center | | | artery | | | | | ([facility]) | | | --pre | | | | | | | | arteria | | | | | Hospita | | | l | | | | | l | | | punctur | | | | | | | | e | | | | | | | +---------+---------+-------+---------+---------+---------+---------+ + + + + | ID | Date | Data Source | + + + + | [id number] | 09/23/2019 02:13:00 | [facility] | | [id number] | 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) | | | | Hospital | + + + + +---------+---------+-------+---------+---------+---------+---------+ | Name | Value | Range | Interpr | Descrip | Data | Support | | | | | etation | tion | Source( | ing | | | | | Code | | s) | Documen | | | | | | | | t(s) | +---------+---------+-------+---------+---------+---------+---------+ | Blood | R Brach | | | | [facility] | | | Gas | | | | | [facility] | | | Sample | | | | | Medical | | | Site | | | | | Center | | | | | | | | ([facility]) | | | | | | | | | | | | | | | | Hospita | | | | | | | | l | | +---------+---------+-------+---------+---------+---------+---------+ + + + + | ID | Date | Data Source | + + + + | [id number] | 09/23/2019 02:13:00 | [facility] | | [id number] | 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) | | | | Hospital | + + + + +---------+---------+-------+---------+---------+---------+---------+ | Name | Value | Range | Interpr | Descrip | Data | Support | | | | | etation | tion | Source( | ing | | | | | Code | | s) | Documen | | | | | | | | t(s) | +---------+---------+-------+---------+---------+---------+---------+ | Oxygen | Cannula | | | | [facility] | | | Deliver | | | | | [facility] | | | y | | | | | Medical | | | Device | | | | | Center | | | | | | | | ([facility]) | | | | | | | | | | | | | | | | Hospita | | | | | | | | l | | +---------+---------+-------+---------+---------+---------+---------+ + + + + | ID | Date | Data Source | + + + + | [id number] | 09/23/2019 02:13:00 | [facility] | | [id number] | 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) | | | | Hospital | + + + + +---------+-------+-------+---------+---------+---------+---------+ | Name | Value | Range | Interpr | Descrip | Data | Support | | | | | etation | tion | Source( | ing | | | | | Code | | s) | Documen | | | | | | | | t(s) | +---------+-------+-------+---------+---------+---------+---------+ | Lactate | 0.51 | | | | [facility] | | | | | | | | [facility] | | | [[facility] | | | | | Medical | | | olume] | | | | | Center | | | in | | | | | ([facility]) | | | [facility] | | | | | | | | l blood | | | | | Hospita | | | | | | | | l | | +---------+-------+-------+---------+---------+---------+---------+ + + + + | ID | Date | Data Source | + + + + | [id number] | 09/23/2019 02:13:00 | [facility] | | [id number] | 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) | | | | Hospital | + + + + +---------+-------+-------+---------+---------+---------+---------+ | Name | Value | Range | Interpr | Descrip | Data | Support | | | | | etation | tion | Source( | ing | | | | | Code | | s) | Documen | | | | | | | | t(s) | +---------+-------+-------+---------+---------+---------+---------+ | Glucose | 163 | | | | [facility] | | | | | | | | [facility] [place] | | | [[facility] | | | | | Medical | | | olume] | | | | | Center | | | in | | | | | ([facility]) | | | [facility] | | | | | | | | l blood | | | | | Hospita | | | | | | | | l | | +---------+-------+-------+---------+---------+---------+---------+ + + + + | ID | Date | Data Source | + + + + | [id number] | 09/23/2019 02:13:00 | [facility] | | [id number] | 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) | | | | Hospital | + + + + +---------+-------+-------+---------+---------+---------+---------+ | Name | Value | Range | Interpr | Descrip | Data | Support | | | | | etation | tion | Source( | ing | | | | | Code | | s) | Documen | | | | | | | | t(s) | +---------+-------+-------+---------+---------+---------+---------+ | Hematoc | 34 | | | | [facility] | | | rit | | | | | [facility] [place] | | | [Volume | | | | | Medical | | | | | | | | Center | | | Fractio | | | | | ([facility]) | | | n] of | | | | | | | | [place] | | | | | Hospita | | | l blood | | | | | l | | +---------+-------+-------+---------+---------+---------+---------+ + + + + | ID | Date | Data Source | + + + + | [id number] | 09/23/2019 02:13:00 | [facility] | | [id number] | 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) | | | | Hospital | + + + + +---------+-------+-------+---------+---------+---------+---------+ | Name | Value | Range | Interpr | Descrip | Data | Support | | | | | etation | tion | Source( | ing | | | | | Code | | s) | Documen | | | | | | | | t(s) | +---------+-------+-------+---------+---------+---------+---------+ | Blood | 11.7 | | | | [facility] | | | Gas | | | | | [facility] | | | Hemoglo | | | | | Medical | | | bin | | | | | Center | | | | | | | | ([facility]) | | | | | | | | | | | | | | | | Hospita | | | | | | | | l | | +---------+-------+-------+---------+---------+---------+---------+ + + + + | ID | Date | Data Source | + + + + | [id number] | 09/23/2019 02:13:00 | [facility] | | [id number] | SHEAR GRINDER OPERATOR | Center ([facility]) | | | | Hospital | + + + + +---------+-------+-------+---------+---------+---------+---------+ | Name | Value | Range | Interpr | Descrip | Data | Support | | | | | etation | tion | Source( | ing | | | | | Code | | s) | Documen | | | | | | | | t(s) | +---------+-------+-------+---------+---------+---------+---------+ | Calcium | 1.20 | | | | [facility] | | | .ionize | | | | | [facility] [place] | | | d | | | | | Medical | | | [Mass/v | | | | | Center | | | olume] | | | | | ([facility]) | | | in | | | | | | | | [place] | | | | | Hospita | | | l blood | | | | | l | | +---------+-------+-------+---------+---------+---------+---------+ + + + + | ID | Date | Data Source | + + + + | [id number] | 09/23/2019 02:13:00 | [facility] | | [id number] | 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) | | | | Hospital | + + + + +---------+-------+-------+---------+---------+---------+---------+ | Name | Value | Range | Interpr | Descrip | Data | Support | | | | | etation | tion | Source( | ing | | | | | Code | | s) | Documen | | | | | | | | t(s) | +---------+-------+-------+---------+---------+---------+---------+ | Potassi | 3.8 | | | | [facility] | | | um | | | | | [facility] [place] | | | [Moles/ | | | | | Medical | | | volume] | | | | | Center | | | in | | | | | ([facility]) | | | [place] | | | | | | | | l blood | | | | | Hospita | | | | | | | | l | | +---------+-------+-------+---------+---------+---------+---------+ + + + + | ID | Date | Data Source | + + + + | [id number] | 09/23/2019 02:13:00 | [facility] | | [id number] | 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) | | | | Hospital | + + + + +---------+-------+-------+---------+---------+---------+---------+ | Name | Value | Range | Interpr | Descrip | Data | Support | | | | | etation | tion | Source( | ing | | | | | Code | | s) | Documen | | | | | | | | t(s) | +---------+-------+-------+---------+---------+---------+---------+ | Sodium | 139 | | | | [facility] | | | [Moles/ | | | | | [facility] [place] | | | volume] | | | | | Medical | | | in | | | | | Center | | | [place] | | | | | (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) | | | | Hospital | + + + + +---------+-------+-------+---------+---------+---------+---------+ | Name | Value | Range | Interpr | Descrip | Data | Support | | | | | etation | tion | Source( | ing | | | | | Code | | s) | Documen | | | | | | | | t(s) | +---------+-------+-------+---------+---------+---------+---------+ | Oxygen | 98.2 | | | | [facility] | | | saturat | | | | | [facility] | | | ion in | | | | | Medical | | | [place] | | | | | Center | | | l blood | | | | | ([facility]) | | | | | | | | | | | | | | | | Hospita | | | | | | | | l | | +---------+-------+-------+---------+---------+---------+---------+ + + + + | ID | Date | Data Source | + + + + | [id number] | 09/23/2019 02:13:00 | [facility] | | [id number] | PM [facility] | Center ([facility]) | | | | Hospital | + + + + +---------+-------+-------+---------+---------+---------+---------+ | Name | Value | Range | Interpr | Descrip | Data | Support | | | | | etation | tion | Source( | ing | | | | | Code | | s) | Documen | | | | | | | | t(s) | +---------+-------+-------+---------+---------+---------+---------+ | [place] | 26.0 | | | | [facility] | | | l Blood | | | | | [facility] | | | Total | | | | | Medical | | | CO2 | | | | | Center | | | | | | | | ([facility]) | | | | | | | | | | | | | | | | Hospita | | | | | | | | l | | +---------+-------+-------+---------+---------+---------+---------+ + + + + | ID | Date | Data Source | + + + + | [id number] | 09/23/2019 02:13:00 | [facility] | | [id number] | 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) | | | | Hospital | + + + + +---------+-------+-------+---------+---------+---------+---------+ | Name | Value | Range | Interpr | Descrip | Data | Support | | | | | etation | tion | Source( | ing | | | | | Code | | s) | Documen | | | | | | | | t(s) | +---------+-------+-------+---------+---------+---------+---------+ | Bicarbo | 24.7 | | | | [facility] | | | lauren | | | | | [facility] | | | [Moles/ | | | | | Medical | | | volume] | | | | | Center | | | in | | | | | ([facility]) | | | [place] | | | | | | | | l blood | | | | | Hospita | | | | | | | | l | | +---------+-------+-------+---------+---------+---------+---------+ + + + + | ID | Date | Data Source | + + + + | [id number] | 09/23/2019 02:13:00 | [facility] | | [id number] | 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) | | | | Hospital | + + + + +---------+-------+-------+---------+---------+---------+---------+ | Name | Value | Range | Interpr | Descrip | Data | Support | | | | | etation | tion | Source( | ing | | | | | Code | | s) | Documen | | | | | | | | t(s) | +---------+-------+-------+---------+---------+---------+---------+ | Base | -0.7 | | | | [facility] | | | excess | | | | | [facility] | | | in | | | | | Medical | | | [place] | | | | | Center | | | l blood | | | | | ([facility]) | | | by | | | | | | | | calcula | | | | | Hospita | | | tion | | | | | l | | +---------+-------+-------+---------+---------+---------+---------+ + + + + | ID | Date | Data Source | + + + + | [id number] | 09/23/2019 02:13:00 | [facility] | | [id number] | 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) | | | | Hospital | + + + + +---------+-------+-------+---------+---------+---------+---------+ | Name | Value | Range | Interpr | Descrip | Data | Support | | | | | etation | tion | Source( | ing | | | | | Code | | s) | Documen | | | | | | | | t(s) | +---------+-------+-------+---------+---------+---------+---------+ | Oxygen | 112 | | | | [facility] | | | [Partia | | | | | [facility] | | | l | | | | | Medical | | | pressur | | | | | Center | | | e] in | | | | | ([facility]) | | | Blood | | | | | | | | | | | | | Hospita | | | | | | | | l | | +---------+-------+-------+---------+---------+---------+---------+ + + + + | ID | Date | Data Source | + + + + | [id number] | 09/23/2019 02:13:00 | [facility] | | [id number] | 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) | | | | Hospital | + + + + +---------+-------+-------+---------+---------+---------+---------+ | Name | Value | Range | Interpr | Descrip | Data | Support | | | | | etation | tion | Source( | ing | | | | | Code | | s) | Documen | | | | | | | | t(s) | +---------+-------+-------+---------+---------+---------+---------+ | Carbon | 42.8 | | | | [facility] | | | dioxide | | | | | [facility] | | | | | | | | Medical | | | [Partia | | | | | Center | | | l | | | | | ([facility]) | | | pressur | | | | | | | | e] in | | | | | Hospita | | | Blood | | | | | l | | +---------+-------+-------+---------+---------+---------+---------+ + + + + | ID | Date | Data Source | + + + + | [id number] | 09/23/2019 02:13:00 | [facility] | | [id number] | 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) | | | | Hospital | + + + + +---------+--------+-------+---------+---------+---------+---------+ | Name | Value | Range | Interpr | Descrip | Data | Support | | | | | etation | tion | Source( | ing | | | | | Code | | s) | Documen | | | | | | | | t(s) | +---------+--------+-------+---------+---------+---------+---------+ | pH of | 7.370 | | | | [facility] | | | [place] | | | | | [facility] [place] | | | l blood | | | | | Medical | | | | | | | | Center | | | | | | | | ([facility]) | | | | | | | | | | | | | | | | Hospita | | | | | | | | l | | +---------+--------+-------+---------+---------+---------+---------+ + + + + | ID | Date | Data Source | + + + + | [id number] | 09/23/2019 02:13:00 | [facility] | | [id number] | [facility] ([facility]) | | | | Hospital | + + + + + + | Phenotype Population A-1-AT Concentration | | Incidence % Reference Interval MM 86.5% | | 96 - 189 MS 8.0% 83 - 161 | | MZ 3.9% 60 - 111 FM 0.4% | | 93 - 191 SZ 0.3% 42 - | | 75 SS 0.1% 62 - 119 ZZ | | 0.05% 16 - 38 FS 0.05% | | 70 - 128 FZ Unknown 44 - 88 FF | | Unknown UnknownPerformed At: [facility] | | [id number] [facility] [address] [place], [place] [id number] CN MD | | Ph:[phone] At: [facility] [address] | | [place], [place] [id number] Galvan MD Ph:[phone] | + + +---------+-------+-------+---------+---------+---------+---------+ | Name | Value | Range | Interpr | Descrip | Data | Support | | | | | etation | tion | Source( | ing | | | | | Code | | s) | Documen | | | | | | | | t(s) | +---------+-------+-------+---------+---------+---------+---------+ | Alpha 1 | MM | | | | [facility] | | | | | | | | [facility] | | | antitry | | | | | Medical | | | psin | | | | | Center | | | phenoty | | | | | ([facility]) | | | ping | | | | | | | | [Identi | | | | | Hospita | | | fier] | | | | | l | | | in | | | | | | | | Serum | | | | | | | | or | | | | | | | | Plasma | | | | | | | | by | | | | | | | | Immunof | | | | | | | | ixation | | | | | | | +---------+-------+-------+---------+---------+---------+---------+ + + + + | ID | Date | Data Source | + + + + | [id number] | 09/23/2019 02:13:00 | [facility] | | [id number] | 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) | | | | Hospital | + + + + +---------+-------+-------+---------+---------+---------+---------+ | Name | Value | Range | Interpr | Descrip | Data | Support | | | | | etation | tion | Source( | ing | | | | | Code | | s) | Documen | | | | | | | | t(s) | +---------+-------+-------+---------+---------+---------+---------+ | Alpha-1 | 239 | | | | [facility] | | | -Antitr | | | | | [facility] | | | ypsin | | | | | Medical | | | | | | | | Center | | | | | | | | ([facility]) | | | | | | | | | | | | | | | | Hospita | | | | | | | | l | | +---------+-------+-------+---------+---------+---------+---------+ + + + + | ID | Date | Data Source | + + + + | [id number] | 09/23/2019 02:13:00 | [facility] | | [id number] | 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) | | | | Hospital | + + + + +---------+-------+-------+---------+---------+---------+---------+ | Name | Value | Range | Interpr | Descrip | Data | Support | | | | | etation | tion | Source( | ing | | | | | Code | | s) | Documen | | | | | | | | t(s) | +---------+-------+-------+---------+---------+---------+---------+ | Vitamin | 42.4 | | | | [facility] | | | D | | | | | [facility] | | | Level | | | | | Medical | | | | | | | | Center | | | | | | | | ([facility]) | | | | | | | | | | | | | | | | Hospita | | | | | | | | l | | +---------+-------+-------+---------+---------+---------+---------+ + + + + | ID | Date | Data Source | + + + + | [id number] | 09/23/2019 02:13:00 | [facility] | | [id number] | 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) | | | | Hospital | + + + + +---------+-------+-------+---------+---------+---------+---------+ | Name | Value | Range | Interpr | Descrip | Data | Support | | | | | etation | tion | Source( | ing | | | | | Code | | s) | Documen | | | | | | | | t(s) | +---------+-------+-------+---------+---------+---------+---------+ | Ammonia | 11 | | | | [facility] | | | | | | | | [facility] | | | [Moles/ | | | | | Medical | | | volume] | | | | | Center | | | in | | | | | ([facility]) | | | Plasma | | | | | | | | | | | | | Hospita | | | | | | | | l | | +---------+-------+-------+---------+---------+---------+---------+ + + + + | ID | Date | Data Source | + + + + | [id number] | 09/23/2019 02:13:00 | [facility] | | [id number] | 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) | | | | Hospital | + + + + +---------+-------+-------+---------+---------+---------+---------+ | Name | Value | Range | Interpr | Descrip | Data | Support | | | | | etation | tion | Source( | ing | | | | | Code | | s) | Documen | | | | | | | | t(s) | +---------+-------+-------+---------+---------+---------+---------+ | Glomeru | 14 | | | | [facility] | | | lar | | | | | [facility] [place] | | | filtrat | | | | | Medical | | | ion | | | | | Center | | | rate/1. | | | | | ([facility]) | | | [address] sq [address] | | | | | | | | | | | | | Hospita | | | predict | | | | | l | | | ed | | | | | | | | among | | | | | | | | non-richard | | | | | | | | cks | | | | | | | | [Volume | | | | | | | | | | | | | | | | Rate/Ar | | | | | | | | ea] in | | | | | | | | Serum | | | | | | | | or | | | | | | | | Plasma | | | | | | | | by | | | | | | | | Creatin | | | | | | | | ine-bas | | | | | | | | ed | | | | | | | | formula | | | | | | | | (MDRD) | | | | | | | +---------+-------+-------+---------+---------+---------+---------+ + + + + | ID | Date | Data Source | + + + + | [id number] | 09/23/2019 02:13:00 | [facility] | | [id number] | 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) | | | | Hospital | + + + + +---------+-------+-------+---------+---------+---------+---------+ | Name | Value | Range | Interpr | Descrip | Data | Support | | | | | etation | tion | Source( | ing | | | | | Code | | s) | Documen | | | | | | | | t(s) | +---------+-------+-------+---------+---------+---------+---------+ | Glomeru | 17 | | | | [facility] | | | lar | | | | | [facility] [place] | | | filtrat | | | | | Medical | | | ion | | | | | Center | | | rate/1. | | | | | ([facility]) | | | 73 sq M | | | | | | | | | | | | | Hospita | | | predict | | | | | l | | | ed | | | | | | | | among | | | | | | | | blacks | | | | | | | | [Volume | | | | | | | | | | | | | | | | Rate/Ar | | | | | | | | ea] in | | | | | | | | Serum | | | | | | | | or | | | | | | | | Plasma | | | | | | | | by | | | | | | | | Creatin | | | | | | | | ine-bas | | | | | | | | ed | | | | | | | | formula | | | | | | | | (MDRD) | | | | | | | +---------+-------+-------+---------+---------+---------+---------+ + + + + | ID | Date | Data Source | + + + + | [id number] | 09/23/2019 02:13:00 | [facility] | | [id number] | 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) | | | | Hospital | + + + + +---------+-------+-------+---------+---------+---------+---------+ | Name | Value | Range | Interpr | Descrip | Data | Support | | | | | etation | tion | Source( | ing | | | | | Code | | s) | Documen | | | | | | | | t(s) | +---------+-------+-------+---------+---------+---------+---------+ | Globuli | 4.0 | | | | [facility] | | | n | | | | | [facility] [place] | | | [Mass/v | | | | | Medical | | | olume] | | | | | Center | | | in | | | | | ([facility]) | | | Serum | | | | | | | | by | | | | | Hospita | | | calcula | | | | | l | | | tion | | | | | | | +---------+-------+-------+---------+---------+---------+---------+ + + + + | ID | Date | Data Source | + + + + | [id number] | 09/23/2019 02:13:00 | [facility] | | [id number] | 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 | Center ([facility]) | | | | Hospital | + + + + +---------+-------+-------+---------+---------+---------+---------+ | Name | Value | Range | Interpr | Descrip | Data | Support | | | | | etation | tion | Source( | ing | | | | | Code | | s) | Documen | | | | | | | | t(s) | +---------+-------+-------+---------+---------+---------+---------+ | Albumin | 2.5 | | | | [facility] | | | | | | | | l [place] | | | | | | | | Medical | | | | | | | | Center | | | | | | | | ([facility]) | | | | | | | | | | | | | | | | Hospita | | | | | | | | l | | +---------+-------+-------+---------+---------+---------+---------+ + + + + | ID | Date | Data Source | + + + + | [id number] | 09/23/2019 02:13:00 | [facility] | | [id number] | 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) | | | | Hospital | + + + + +---------+-------+-------+---------+---------+---------+---------+ | Name | Value | Range | Interpr | Descrip | Data | Support | | | | | etation | tion | Source( | ing | | | | | Code | | s) | Documen | | | | | | | | t(s) | +---------+-------+-------+---------+---------+---------+---------+ | Protein | 6.5 | | | | [facility] | | | | | | | | [facility] [place] | | | [Mass/v | | | | | Medical | | | olume] | | | | | Center | | | in | | | | | ([facility]) | | | Serum | | | | | | | | or | | | | | Hospita | | | Plasma | | | | | l | | +---------+-------+-------+---------+---------+---------+---------+ + + + + | ID | Date | Data Source | + + + + | [id number] | 09/23/2019 02:13:00 | [facility] | | [id number] | 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) | | | | Hospital | + + + + +---------+-------+-------+---------+---------+---------+---------+ | Name | Value | Range | Interpr | Descrip | Data | Support | | | | | etation | tion | Source( | ing | | | | | Code | | s) | Documen | | | | | | | | t(s) | +---------+-------+-------+---------+---------+---------+---------+ | Total | 0.66 | | | | [facility] | | | Bilirub | | | | | [facility] [place] | | | in | | | | | Medical | | | | | | | | Center | | | | | | | | ([facility]) | | | | | | | | | | | | | | | | Hospita | | | | | | | | l | | +---------+-------+-------+---------+---------+---------+---------+ + + + + | ID | Date | Data Source | + + + + | [id number] | 09/23/2019 02:13:00 | [facility] | | [id number] | 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) | | | | Hospital | + + + + +---------+-------+-------+---------+---------+---------+---------+ | Name | Value | Range | Interpr | Descrip | Data | Support | | | | | etation | tion | Source( | ing | | | | | Code | | s) | Documen | | | | | | | | t(s) | +---------+-------+-------+---------+---------+---------+---------+ | Alkalin | 98 | | | | [facility] | | | e | | | | | [facility] [place] | | | phospha | | | | | Medical | | | tase | | | | | Center | | | [[facility]zyma | | | | | ([facility]) | | | tic | | | | | | | | activit | | | | | Hospita | | | y/volum | | | | | l | | | e] in | | | | | | | | Serum | | | | | | | | or | | | | | | | | Plasma | | | | | | | +---------+-------+-------+---------+---------+---------+---------+ + + + + | ID | Date | Data Source | + + + + | [id number] | 09/23/2019 02:13:00 | [facility] | | [id number] | 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) | | | | Hospital | + + + + +---------+-------+-------+---------+---------+---------+---------+ | Name | Value | Range | Interpr | Descrip | Data | Support | | | | | etation | tion | Source( | ing | | | | | Code | | s) | Documen | | | | | | | | t(s) | +---------+-------+-------+---------+---------+---------+---------+ | Alanine | 7 | | | | [facility] | | | | | | | | [facility] [place] | | | aminotr | | | | | Medical | | | ansfera | | | | | Center | | | se | | | | | ([facility]) | | | [[facility] | | | | | | | | tic | | | | | Hospita | | | activit | | | | | l | | | y/volum | | | | | | | | e] in | | | | | | | | Serum | | | | | | | | or | | | | | | | | Plasma | | | | | | | +---------+-------+-------+---------+---------+---------+---------+ + + + + | ID | Date | Data Source | + + + + | [id number] | 09/23/2019 02:13:00 | [facility] | | [id number] | 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) | | | | Hospital | + + + + +---------+-------+-------+---------+---------+---------+---------+ | Name | Value | Range | Interpr | Descrip | Data | Support | | | | | etation | tion | Source( | ing | | | | | Code | | s) | Documen | | | | | | | | t(s) | +---------+-------+-------+---------+---------+---------+---------+ | [place] [facility] | | | [facility] | [facility] | | | | | [facility] | | | Transf | | | | | Center | | | (AST/SG | | | | | ([facility]) | | | OT) | | | | | | | | | | | | | Hospita | | | | | | | | l | | +---------+-------+-------+---------+---------+---------+---------+ + + + + | ID | Date | Data Source | + + + + | [id number] | 09/23/2019 02:13:00 | [facility] | | [id number] | 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) | | | | Hospital | + + + + +---------+-------+-------+---------+---------+---------+---------+ | Name | Value | Range | Interpr | Descrip | Data | Support | | | | | etation | tion | Source( | ing | | | | | Code | | s) | Documen | | | | | | | | t(s) | +---------+-------+-------+---------+---------+---------+---------+ | [facility] | [facility] | | | | [facility] | | | [facility] | | | | | [facility] | | | Serum | | | | | Medical | | | or | | | | | Center | | | Plasma | | | | | ([facility]) | | | by | | | | | | | | calcula | | | | | Hospita | | | tion | | | | | l | | +---------+-------+-------+---------+---------+---------+---------+ + + + + | ID | Date | Data Source | + + + + | [id number] | 09/23/2019 02:13:00 | [facility] | | [id number] | 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) | | | | Hospital | + + + + +---------+--------+-------+---------+---------+---------+---------+ | Name | Value | Range | Interpr | Descrip | Data | Support | | | | | etation | tion | Source( | ing | | | | | Code | | s) | Documen | | | | | | | | t(s) | +---------+--------+-------+---------+---------+---------+---------+ | Anion | 14.30 | | | | [facility] | | | gap in | | | | | [facility] | | | Serum | | | | | Medical | | | or | | | | | Center | | | Plasma | | | | | (NP) | | | | | | | | | | | | | | | | Hospita | | | | | | | | l | | +---------+--------+-------+---------+---------+---------+---------+ + + + + | ID | Date | Data Source | + + + + | [id number] | 09/23/2019 02:13:00 | [facility] | | [id number] | 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) | | | | Hospital | + + + + +---------+-------+-------+---------+---------+---------+---------+ | Name | Value | Range | Interpr | Descrip | Data | Support | | | | | etation | tion | Source( | ing | | | | | Code | | s) | Documen | | | | | | | | t(s) | +---------+-------+-------+---------+---------+---------+---------+ | Calcium | 8.8 | | | | [facility] | | | | | | | | [place] | | | [Mass/v | | | | | Medical | | | olume] | | | | | Center | | | in | | | | | ([facility]) | | | Serum | | | | | | | | or | | | | | Hospita | | | Plasma | | | | | l | | +---------+-------+-------+---------+---------+---------+---------+ + + + + | ID | Date | Data Source | + + + + | [id number] | 09/23/2019 02:13:00 | [facility] | | [id number] | 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) | | | | Hospital | + + + + +---------+-------+-------+---------+---------+---------+---------+ | Name | Value | Range | Interpr | Descrip | Data | Support | | | | | etation | tion | Source( | ing | | | | | Code | | s) | Documen | | | | | | | | t(s) | +---------+-------+-------+---------+---------+---------+---------+ | Carbon | 24.7 | | | | [facility] | | | dioxide | | | | | [place] | | | , total | | | | | Medical | | | | | | | | Center | | | [Moles/ | | | | | ([facility]) | | | volume] | | | | | | | | in | | | | | Hospita | | | Serum | | | | | l | | | or | | | | | | | | Plasma | | | | | | | +---------+-------+-------+---------+---------+---------+---------+ + + + + | ID | Date | Data Source | + + + + | [id number] | 09/23/2019 02:13:00 | [facility] | | [id number] | 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) | | | | Hospital | + + + + +---------+-------+-------+---------+---------+---------+---------+ | Name | Value | Range | Interpr | Descrip | Data | Support | | | | | etation | tion | Source( | ing | | | | | Code | | s) | Documen | | | | | | | | t(s) | +---------+-------+-------+---------+---------+---------+---------+ | Chlorid | 101 | | | | [facility] | | | e | | | | | [place] | | | [Moles/ | | | | | Medical | | | volume] | | | | | Center | | | in | | | | | ([facility]) | | | Serum | | | | | | | | or | | | | | Hospita | | | Plasma | | | | | l | | +---------+-------+-------+---------+---------+---------+---------+ + + + + | ID | Date | Data Source | + + + + | [id number] | 09/23/2019 02:13:00 | [facility] | | [id number] | 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) | | | | Hospital | + + + + +---------+-------+-------+---------+---------+---------+---------+ | Name | Value | Range | Interpr | Descrip | Data | Support | | | | | etation | tion | Source( | ing | | | | | Code | | s) | Documen | | | | | | | | t(s) | +---------+-------+-------+---------+---------+---------+---------+ | Potassi | 4.0 | | | | [facility] | | | um | | | | | [place] | | | [Moles/ | | | | | Medical | | | volume] | | | | | Center | | | in | | | | | ([facility]) | | | Serum | | | | | | | | or | | | | | Hospita | | | Plasma | | | | | l | | +---------+-------+-------+---------+---------+---------+---------+ + + + + | ID | Date | Data Source | + + + + | [id number] | 09/23/2019 02:13:00 | [facility] | | [id number] | 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) | | | | Hospital | + + + + +---------+-------+-------+---------+---------+---------+---------+ | Name | Value | Range | Interpr | Descrip | Data | Support | | | | | etation | tion | Source( | ing | | | | | Code | | s) | Documen | | | | | | | | t(s) | +---------+-------+-------+---------+---------+---------+---------+ | Sodium | 136 | | | | [facility] | | | [Moles/ | | | | | [place] | | | volume] | | | | | Medical | | | in | | | | | Center | | | Serum | | | | | (NP) | | | or | | | | | | | | Plasma | | | | | Hospita | | | | | | | | l | | +---------+-------+-------+---------+---------+---------+---------+ + + + + | ID | Date | Data Source | + + + + | [id number] | 09/23/2019 02:13:00 | [facility] | | [id number] | 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) | | | | Hospital | + + + + +---------+-------+-------+---------+---------+---------+---------+ | Name | Value | Range | Interpr | Descrip | Data | Support | | | | | etation | tion | Source( | ing | | | | | Code | | s) | Documen | | | | | | | | t(s) | +---------+-------+-------+---------+---------+---------+---------+ | BUN/Cre | 19 | | | | [facility] | | | atinine | | | | | [place] | | | Ratio | | | | | Medical | | | | | | | | Center | | | | | | | | ([facility]) | | | | | | | | | | | | | | | | Hospita | | | | | | | | l | | +---------+-------+-------+---------+---------+---------+---------+ + + + + | ID | Date | Data Source | + + + + | [id number] | 09/23/2019 02:13:00 | [facility] | | [id number] | 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) | | | | Hospital | + + + + +---------+-------+-------+---------+---------+---------+---------+ | Name | Value | Range | Interpr | Descrip | Data | Support | | | | | etation | tion | Source( | ing | | | | | Code | | s) | Documen | | | | | | | | t(s) | +---------+-------+-------+---------+---------+---------+---------+ | Creatin | 3.4 | | | | [facility] | | | ine | | | | | [place] | | | [Mass/v | | | | | Medical | | | olume] | | | | | Center | | | in | | | | | (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) | | | | Hospital | + + + + +---------+-------+-------+---------+---------+---------+---------+ | Name | Value | Range | Interpr | Descrip | Data | Support | | | | | etation | tion | Source( | ing | | | | | Code | | s) | Documen | | | | | | | | t(s) | +---------+-------+-------+---------+---------+---------+---------+ | Urea | 66 | | | | [facility] | | | nitroge | | | | | [place] | | | n | | | | | Medical | | | [Mass/v | | | | | Center | | | olume] | | | | | (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) | | | | Hospital | + + + + +---------+-------+-------+---------+---------+---------+---------+ | Name | Value | Range | Interpr | Descrip | Data | Support | | | | | etation | tion | Source( | ing | | | | | Code | | s) | Documen | | | | | | | | t(s) | +---------+-------+-------+---------+---------+---------+---------+ | Glucose | 110 | | | | [facility] | | | | | | | | [place] | | | [Mass/v | | | | | Medical | | | olume] | | | | | Center | | | in | | | | | ([facility]) | | | Serum | | | | | | | | or | | | | | Hospita | | | Plasma | | | | | l | | +---------+-------+-------+---------+---------+---------+---------+ + + + + | ID | Date | Data Source | + + + + | [id number] | 09/23/2019 02:13:00 | [facility] | | [id number] | 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) | | | | Hospital | + + + + +---------+-------+-------+---------+---------+---------+---------+ | Name | Value | Range | Interpr | Descrip | Data | Support | | | | | etation | tion | Source( | ing | | | | | Code | | s) | Documen | | | | | | | | t(s) | +---------+-------+-------+---------+---------+---------+---------+ | Phospho | 6.0 | | | | [facility] | | | amaya | | | | | [place] | | | Level | | | | | Medical | | | | | | | | Center | | | | | | | | ([facility]) | | | | | | | | | | | | | | | | Hospita | | | | | | | | l | | +---------+-------+-------+---------+---------+---------+---------+ + + + + | ID | Date | Data Source | + + + + | [id number] | 09/23/2019 02:13:00 | [facility] | | [id number] | 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) | | | | Hospital | + + + + +---------+-------+-------+---------+---------+---------+---------+ | Name | Value | Range | Interpr | Descrip | Data | Support | | | | | etation | tion | Source( | ing | | | | | Code | | s) | Documen | | | | | | | | t(s) | +---------+-------+-------+---------+---------+---------+---------+ | Magnesi | 1.8 | | | | [facility] | | | um | | | | | [place] | | | [Mass/v | | | | | Medical | | | olume] | | | | | Center | | | in | | | | | ([facility]) | | | Serum | | | | | | | | or | | | | | Hospita | | | Plasma | | | | | l | | +---------+-------+-------+---------+---------+---------+---------+ + + + + | ID | Date | Data Source | + + + + | [id number] | 09/23/2019 02:13:00 | [facility] | | [id number] | 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) | | | | Hospital | + + + + +---------+-------+-------+---------+---------+---------+---------+ | Name | Value | Range | Interpr | Descrip | Data | Support | | | | | etation | tion | Source( | ing | | | | | Code | | s) | Documen | | | | | | | | t(s) | +---------+-------+-------+---------+---------+---------+---------+ | Starch | 0-5 | | | | [facility] | | | granule | | | | | [place] | | | s | | | | | Medical | | | [Presen | | | | | Center | | | ce] in | | | | | ([facility]) | | | Urine | | | | | | | | sedimen | | | | | Hospita | | | t by | | | | | l | | | Light | | | | | | | | microsc | | | | | | | | opy | | | | | | | +---------+-------+-------+---------+---------+---------+---------+ + + + + | ID | Date | Data Source | + + + + | [id number] | 09/23/2019 02:13:00 | [facility] | | [id number] | 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) | | | | Hospital | + + + + +---------+-------+-------+---------+---------+---------+---------+ | Name | Value | Range | Interpr | Descrip | Data | Support | | | | | etation | tion | Source( | ing | | | | | Code | | s) | Documen | | | | | | | | t(s) | +---------+-------+-------+---------+---------+---------+---------+ | Mucus | <1+ | | | | [facility] | | | [Presen | | | | | [place] | | | ce] in | | | | | Medical | | | Urine | | | | | Center | | | sedimen | | | | | ([facility]) | | | t by | | | | | | | | Light | | | | | Hospita | | | microsc | | | | | l | | | opy | | | | | | | +---------+-------+-------+---------+---------+---------+---------+ + + + + | ID | Date | Data Source | + + + + | [id number] | 09/23/2019 02:13:00 | [facility] | | [id number] | 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) | | | | Hospital | + + + + +---------+---------+-------+---------+---------+---------+---------+ | Name | Value | Range | Interpr | Descrip | Data | Support | | | | | etation | tion | Source( | ing | | | | | Code | | s) | Documen | | | | | | | | t(s) | +---------+---------+-------+---------+---------+---------+---------+ | Bacteri | MODERAT | | | | [facility] | | | a | E | | | | [place] | | | [Presen | | | | | Medical | | | ce] in | | | | | Center | | | Urine | | | | | ([facility]) | | | sedimen | | | | | | | | t by | | | | | Hospita | | | Light | | | | | l | | | microsc | | | | | | | | opy | | | | | | | +---------+---------+-------+---------+---------+---------+---------+ + + + + | ID | Date | Data Source | + + + + | [id number] | 09/23/2019 02:13:00 | [facility] | | [id number] | 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) | | | | Hospital | + + + + +---------+-------+-------+---------+---------+---------+---------+ | Name | Value | Range | Interpr | Descrip | Data | Support | | | | | etation | tion | Source( | ing | | | | | Code | | s) | Documen | | | | | | | | t(s) | +---------+-------+-------+---------+---------+---------+---------+ | Epithel | 0-5 | | | | [facility] | | | ial | | | | | [place] | | | cells | | | | | Medical | | | [#/area | | | | | Center | | | ] in | | | | | ([facility]) | | | Urine | | | | | | | | sedimen | | | | | Hospita | | | t by | | | | | l | | | Microsc | | | | | | | | opy | | | | | | | | high | | | | | | | | power | | | | | | | | field | | | | | | | +---------+-------+-------+---------+---------+---------+---------+ + + + + | ID | Date | Data Source | + + + + | [id number] | 09/23/2019 02:13:00 | [facility] | | [id number] | SHEAR GRINDER OPERATOR | Center ([facility]) | | | | Hospital | + + + + +---------+-------+-------+---------+---------+---------+---------+ | Name | Value | Range | Interpr | Descrip | Data | Support | | | | | etation | tion | Source( | ing | | | | | Code | | s) | Documen | | | | | | | | t(s) | +---------+-------+-------+---------+---------+---------+---------+ | Erythro | 0-5 | | | | [facility] | | | cytes | | | | | [place] | | | [#/area | | | | | Medical | | | ] in | | | | | Center | | | Urine | | | | | ([facility]) | | | sedimen | | | | | | | | t by | | | | | Hospita | | | Microsc | | | | | l | | | opy | | | | | | | | high | | | | | | | | power | | | | | | | | field | | | | | | | +---------+-------+-------+---------+---------+---------+---------+ + + + + | ID | Date | Data Source | + + + + | [id number] | 09/23/2019 02:13:00 | [facility] | | [id number] | 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) | | | | Hospital | + + + + +---------+-------+-------+---------+---------+---------+---------+ | Name | Value | Range | Interpr | Descrip | Data | Support | | | | | etation | tion | Source( | ing | | | | | Code | | s) | Documen | | | | | | | | t(s) | +---------+-------+-------+---------+---------+---------+---------+ | Leukocy | 10-25 | | | | [facility] | | | tracie | | | | | [place] | | | [#/area | | | | | Medical | | | ] in | | | | | Center | | | Urine | | | | | ([facility]) | | | sedimen | | | | | | | | t by | | | | | Hospita | | | Microsc | | | | | l | | | opy | | | | | | | | high | | | | | | | | power | | | | | | | | field | | | | | | | +---------+-------+-------+---------+---------+---------+---------+ + + + + | ID | Date | Data Source | + + + + | [id number] | 09/23/2019 02:13:00 | [facility] | | [id number] | 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) | | | | Hospital | + + + + +--------+-------+-------+---------+---------+---------+---------+ | Name | Value | Range | Interpr | Descrip | Data | Support | | | | | etation | tion | Source( | ing | | | | | Code | | s) | Documen | | | | | | | | t(s) | +--------+-------+-------+---------+---------+---------+---------+ | Urine | TRACE | | | | [facility] | | | Blood | | | | | [facility] [place] | | | | | | | | Medical | | | | | | | | Center | | | | | | | | ([facility]) | | | | | | | | | | | | | | | | Hospita | | | | | | | | l | | +--------+-------+-------+---------+---------+---------+---------+ + + + + | ID | Date | Data Source | + + + + | [id number] | 09/23/2019 02:13:00 | [facility] | | [id number] | 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) | | | | Hospital | + + + + +---------+---------+-------+---------+---------+---------+---------+ | Name | Value | Range | Interpr | Descrip | Data | Support | | | | | etation | tion | Source( | ing | | | | | Code | | s) | Documen | | | | | | | | t(s) | +---------+---------+-------+---------+---------+---------+---------+ | Bilirub | NEGATIV | | | | [facility] | | | in.tota | E | | | | [place] | | | l | | | | | Medical | | | [Mass/v | | | | | Center | | | olume] | | | | | ([facility]) | | | in | | | | | | | | Urine | | | | | Hospita | | | by Test | | | | | l | | | strip | | | | | | | +---------+---------+-------+---------+---------+---------+---------+ + + + + | ID | Date | Data Source | + + + + | [id number] | 09/23/2019 02:13:00 | [facility] | | [id number] | 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) | | | | Hospital | + + + + +---------+--------+-------+---------+---------+---------+---------+ | Name | Value | Range | Interpr | Descrip | Data | Support | | | | | etation | tion | Source( | ing | | | | | Code | | s) | Documen | | | | | | | | t(s) | +---------+--------+-------+---------+---------+---------+---------+ | Urobili | NORMAL | | | | [facility] | | | nogen | | | | | [place] | | | [Mass/v | | | | | Medical | | | olume] | | | | | Center | | | in | | | | | ([facility]) | | | Urine | | | | | | | | by Test | | | | | Hospita | | | strip | | | | | l | | +---------+--------+-------+---------+---------+---------+---------+ + + + + | ID | Date | Data Source | + + + + | [id number] | 09/23/2019 02:13:00 | [facility] | | [id number] | 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) | | | | Hospital | + + + + +---------+---------+-------+---------+---------+---------+---------+ | Name | Value | Range | Interpr | Descrip | Data | Support | | | | | etation | tion | Source( | ing | | | | | Code | | s) | Documen | | | | | | | | t(s) | +---------+---------+-------+---------+---------+---------+---------+ | Ketones | NEGATIV | | | | [facility] | | | | E | | | | [place] | | | [Mass/v | | | | | Medical | | | olume] | | | | | Center | | | in | | | | | ([facility]) | | | Urine | | | | | | | | by Test | | | | | Hospita | | | strip | | | | | l | | +---------+---------+-------+---------+---------+---------+---------+ + + + + | ID | Date | Data Source | + + + + | [id number] | 09/23/2019 02:13:00 | [facility] | | [id number] | 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) | | | | Hospital | + + + + +---------+---------+-------+---------+---------+---------+---------+ | Name | Value | Range | Interpr | Descrip | Data | Support | | | | | etation | tion | Source( | ing | | | | | Code | | s) | Documen | | | | | | | | t(s) | +---------+---------+-------+---------+---------+---------+---------+ | Glucose | NEGATIV | | | | [facility] | | | | E | | | | [place] | | | [Mass/v | | | | | Medical | | | olume] | | | | | Center | | | in | | | | | ([facility]) | | | Urine | | | | | | | | by Test | | | | | Hospita | | | strip | | | | | l | | +---------+---------+-------+---------+---------+---------+---------+ + + + + | ID | Date | Data Source | + + + + | [id number] | 09/23/2019 02:13:00 | [facility] | | [id number] | 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) | | | | Hospital | + + + + +---------+-------+-------+---------+---------+---------+---------+ | Name | Value | Range | Interpr | Descrip | Data | Support | | | | | etation | tion | Source( | ing | | | | | Code | | s) | Documen | | | | | | | | t(s) | +---------+-------+-------+---------+---------+---------+---------+ | Urine | 2+ | | | | [facility] | | | Protein | | | | | [facility] [place] | | | | | | | | Medical | | | | | | | | [place] | | | | | | | | ([facility]) | | | | | | | | | | | | | | | | Hospita | | | | | | | | l | | +---------+-------+-------+---------+---------+---------+---------+ + + + + | ID | Date | Data Source | + + + + | [id number] | 09/23/2019 02:13:00 | [facility] | | [id number] | 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) | | | | Hospital | + + + + +---------+---------+-------+---------+---------+---------+---------+ | Name | Value | Range | Interpr | Descrip | Data | Support | | | | | etation | tion | Source( | ing | | | | | Code | | s) | Documen | | | | | | | | t(s) | +---------+---------+-------+---------+---------+---------+---------+ | Nitrite | NEGATIV | | | | [facility] | | | | E | | | | [place] | | | [Presen | | | | | Medical | | | ce] in | | | | | Center | | | Urine | | | | | ([facility]) | | | by Test | | | | | | | | strip | | | | | Hospita | | | | | | | | l | | +---------+---------+-------+---------+---------+---------+---------+ + + + + | ID | Date | Data Source | + + + + | [id number] | 09/23/2019 02:13:00 | [facility] | | [id number] | 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) | | | | Hospital | + + + + +---------+-------+-------+---------+---------+---------+---------+ | Name | Value | Range | Interpr | Descrip | Data | Support | | | | | etation | tion | Source( | ing | | | | | Code | | s) | Documen | | | | | | | | t(s) | +---------+-------+-------+---------+---------+---------+---------+ | Leukocy | TRACE | | | | [facility] | | | te | | | | | [place] | | | esteras | | | | | Medical | | | e | | | | | Center | | | [Presen | | | | | ([facility]) | | | ce] in | | | | | | | | Urine | | | | | Hospita | | | by Test | | | | | l | | | strip | | | | | | | +---------+-------+-------+---------+---------+---------+---------+ + + + + | ID | Date | Data Source | + + + + | [id number] | 09/23/2019 02:13:00 | [facility] | | [id number] | 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) | | | | Hospital | + + + + +--------+-------+-------+---------+---------+---------+---------+ | Name | Value | Range | Interpr | Descrip | Data | Support | | | | | etation | tion | Source( | ing | | | | | Code | | s) | Documen | | | | | | | | t(s) | +--------+-------+-------+---------+---------+---------+---------+ | pH of | 5.0 | | | | [facility] | | | Urine | | | | | [facility] | | | | | | | | [facility] | | | | | | | | [place] | | | | | | | | ([facility]) | | | | | | | | | | | | | | | | Hospita | | | | | | | | l | | +--------+-------+-------+---------+---------+---------+---------+ + + + + | ID | Date | Data Source | + + + + | [id number] | 09/23/2019 02:13:00 | [facility] | | [id number] | 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) | | | | Hospital | + + + + +---------+--------+-------+---------+---------+---------+---------+ | Name | Value | Range | Interpr | Descrip | Data | Support | | | | | etation | tion | Source( | ing | | | | | Code | | s) | Documen | | | | | | | | t(s) | +---------+--------+-------+---------+---------+---------+---------+ | Specifi | 1.015 | | | | [facility] | | | [facility] | | | | | [facility] | | | gravity | | | | | Medical | | | of | | | | | Center | | | Urine | | | | | ([facility]) | | | | | | | | | | | | | | | | Hospita | | | | | | | | l | | +---------+--------+-------+---------+---------+---------+---------+ + + + + | ID | Date | Data Source | + + + + | [id number] | 09/23/2019 02:13:00 | [facility] | | [id number] | 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 | Center ([facility]) | | | | Hospital | + + + + +---------+-------+-------+---------+---------+---------+---------+ | Name | Value | Range | Interpr | Descrip | Data | Support | | | | | etation | tion | Source( | ing | | | | | Code | | s) | Documen | | | | | | | | t(s) | +---------+-------+-------+---------+---------+---------+---------+ | Appeara | HAZY | | | | [facility] [place] | | | Urine | | | | | Medical | | | | | | | | Center | | | | | | | | ([facility]) | | | | | | | | | | | | | | | | Hospita | | | | | | | | l | | +---------+-------+-------+---------+---------+---------+---------+ + + + + | ID | Date | Data Source | + + + + | [id number] | 09/23/2019 02:13:00 | [facility] | | [id number] | 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) | | | | Hospital | + + + + +--------+--------+-------+---------+---------+---------+---------+ | Name | Value | Range | Interpr | Descrip | Data | Support | | | | | etation | tion | Source( | ing | | | | | Code | | s) | Documen | | | | | | | | t(s) | +--------+--------+-------+---------+---------+---------+---------+ | Color | YELLOW | | | | [facility] | | | of | | | | | [facility] [place] | | | Urine | | | | | Medical | | | | | | | | Center | | | | | | | | ([facility]) | | | | | | | | | | | | | | | | Hospita | | | | | | | | l | | +--------+--------+-------+---------+---------+---------+---------+ + + + + | ID | Date | Data Source | + + + + | [id number] | 09/23/2019 02:13:00 | [facility] | | [id number] | 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) | | | | Hospital | + + + + +---------+-------+-------+---------+---------+---------+---------+ | Name | Value | Range | Interpr | Descrip | Data | Support | | | | | etation | tion | Source( | ing | | | | | Code | | s) | Documen | | | | | | | | t(s) | +---------+-------+-------+---------+---------+---------+---------+ | Absolut | 4.22 | | | | [facility] | | | e | | | | | [facility] [place] | | | Neutrop | | | | | Medical | | | hil | | | | | [place] | | | | | | | | ([facility]) | | | | | | | | | | | | | | | | Hospita | | | | | | | | l | | +---------+-------+-------+---------+---------+---------+---------+ + + + + | ID | Date | Data Source | + + + + | [id number] | 09/23/2019 02:13:00 | [facility] | | [id number] | 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) | | | | Hospital | + + + + +---------+-------+-------+---------+---------+---------+---------+ | Name | Value | Range | Interpr | Descrip | Data | Support | | | | | etation | tion | Source( | ing | | | | | Code | | s) | Documen | | | | | | | | t(s) | +---------+-------+-------+---------+---------+---------+---------+ | Lymphoc | 0.89 | | | | [facility] | | | ytes | | | | | [facility] [place] | | | [#/volu | | | | | Medical | | | me] in | | | | | Center | | | Unspeci | | | | | ([facility]) | | | fied | | | | | | | | specime | | | | | Hospita | | | n by | | | | | l | | | Automat | | | | | | | | ed | | | | | | | | count | | | | | | | +---------+-------+-------+---------+---------+---------+---------+ + + + + | ID | Date | Data Source | + + + + | [id number] | 09/23/2019 02:13:00 | [facility] | | [id number] | 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) | | | | Hospital | + + + + +---------+-------+-------+---------+---------+---------+---------+ | Name | Value | Range | Interpr | Descrip | Data | Support | | | | | etation | tion | Source( | ing | | | | | Code | | s) | Documen | | | | | | | | t(s) | +---------+-------+-------+---------+---------+---------+---------+ | Band | 5 | | | | [facility] | | | Neutrop | | | | | [facility] [place] | | | hils % | | | | | Medical | | | | | | | | Center | | | | | | | | ([facility]) | | | | | | | | | | | | | | | | Hospita | | | | | | | | l | | +---------+-------+-------+---------+---------+---------+---------+ + + + + | ID | Date | Data Source | + + + + | [id number] | 09/23/2019 02:13:00 | [facility] | | [id number] | 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) | | | | Hospital | + + + + +---------+-------+-------+---------+---------+---------+---------+ | Name | Value | Range | Interpr | Descrip | Data | Support | | | | | etation | tion | Source( | ing | | | | | Code | | s) | Documen | | | | | | | | t(s) | +---------+-------+-------+---------+---------+---------+---------+ | Immatur | 0.5 | | | | [facility] | | | e | | | | | [facility] [place] | | | granulo | | | | | Medical | | | cytes | | | | | Center | | | [Presen | | | | | (NP) | | | ce] in | | | | | | | | Blood | | | | | Hospita | | | by | | | | | l | | | Automat | | | | | | | | ed | | | | | | | | count | | | | | | | +---------+-------+-------+---------+---------+---------+---------+ + + + + | ID | Date | Data Source | + + + + | [id number] | 09/23/2019 02:13:00 | [facility] | | [id number] | 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) | | | | Hospital | + + + + +---------+-------+-------+---------+---------+---------+---------+ | Name | Value | Range | Interpr | Descrip | Data | Support | | | | | etation | tion | Source( | ing | | | | | Code | | s) | Documen | | | | | | | | t(s) | +---------+-------+-------+---------+---------+---------+---------+ | Basophi | 0.4 | | | | [facility] | | | ls/100 | | | | | [place] | | | leukocy | | | | | Medical | | | tracie in | | | | | Center | | | Unspeci | | | | | ([facility]) | | | fied | | | | | | | | specime | | | | | Hospita | | | n | | | | | l | | +---------+-------+-------+---------+---------+---------+---------+ + + + + | ID | Date | Data Source | + + + + | [id number] | 09/23/2019 02:13:00 | [facility] | | [id number] | 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) | | | | Hospital | + + + + +---------+-------+-------+---------+---------+---------+---------+ | Name | Value | Range | Interpr | Descrip | Data | Support | | | | | etation | tion | Source( | ing | | | | | Code | | s) | Documen | | | | | | | | t(s) | +---------+-------+-------+---------+---------+---------+---------+ | Eosinop | 2.6 | | | | [facility] | | | hils % | | | | | [facility] [place] | | | | | | | | Medical | | | | | | | | Center | | | | | | | | ([facility]) | | | | | | | | | | | | | | | | Hospita | | | | | | | | l | | +---------+-------+-------+---------+---------+---------+---------+ + + + + | ID | Date | Data Source | + + + + | [id number] | 09/23/2019 02:13:00 | [facility] | | [id number] | 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) | | | | Hospital | + + + + +---------+-------+-------+---------+---------+---------+---------+ | Name | Value | Range | Interpr | Descrip | Data | Support | | | | | etation | tion | Source( | ing | | | | | Code | | s) | Documen | | | | | | | | t(s) | +---------+-------+-------+---------+---------+---------+---------+ | Monocyt | 6.8 | | | | [facility] | | | es % | | | | | [facility] [place] | | | | | | | | Medical | | | | | | | | Center | | | | | | | | (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) | | | | Hospital | + + + + +---------+-------+-------+---------+---------+---------+---------+ | Name | Value | Range | Interpr | Descrip | Data | Support | | | | | etation | tion | Source( | ing | | | | | Code | | s) | Documen | | | | | | | | t(s) | +---------+-------+-------+---------+---------+---------+---------+ | Lymphoc | 15.6 | | | | [facility] | | | ytes/10 | | | | | [facility] [place] | | | 0 | | | | | Medical | | | leukocy | | | | | Center | | | tracie in | | | | | (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) | | | | Hospital | + + + + +---------+-------+-------+---------+---------+---------+---------+ | Name | Value | Range | Interpr | Descrip | Data | Support | | | | | etation | tion | Source( | ing | | | | | Code | | s) | Documen | | | | | | | | t(s) | +---------+-------+-------+---------+---------+---------+---------+ | Neutrop | 74.1 | | | | [facility] | | | hils/10 | | | | | [facility] [place] | | | 0 | | | | | Medical | | | leukocy | | | | | Center | | | tracie in | | | | | (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) | | | | Hospital | + + + + +---------+--------+-------+---------+---------+---------+---------+ | Name | Value | Range | Interpr | Descrip | Data | Support | | | | | etation | tion | Source( | ing | | | | | Code | | s) | Documen | | | | | | | | t(s) | +---------+--------+-------+---------+---------+---------+---------+ | Platele | NORMAL | | | | [facility] | | | t | | | | | [facility] [place] | | | adequac | | | | | Medical | | | y | | | | | Center | | | [Presen | | | | | ([facility]) | | | ce] in | | | | | | | | Blood | | | | | Hospita | | | by | | | | | l | | | Light | | | | | | | | microsc | | | | | | | | opy | | | | | | | +---------+--------+-------+---------+---------+---------+---------+ + + + + | ID | Date | Data Source | + + + + | [id number] | 09/23/2019 02:13:00 | [facility] | | [id number] | 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) | | | | Hospital | + + + + +---------+-------+-------+---------+---------+---------+---------+ | Name | Value | Range | Interpr | Descrip | Data | Support | | | | | etation | tion | Source( | ing | | | | | Code | | s) | Documen | | | | | | | | t(s) | +---------+-------+-------+---------+---------+---------+---------+ | Mean | 11.4 | | | | [facility] | | | Platele | | | | | [facility] [place] | | | t | | | | | Medical | | | Volume | | | | | Center | | | | | | | | ([facility]) | | | | | | | | | | | | | | | | Hospita | | | | | | | | l | | +---------+-------+-------+---------+---------+---------+---------+ + + + + | ID | Date | Data Source | + + + + | [id number] | 09/23/2019 02:13:00 | [facility] | | [id number] | [facility] | Center ([facility]) | | | | Hospital | + + + + +---------+-------+-------+---------+---------+---------+---------+ | Name | Value | Range | Interpr | Descrip | Data | Support | | | | | etation | tion | Source( | ing | | | | | Code | | s) | Documen | | | | | | | | t(s) | +---------+-------+-------+---------+---------+---------+---------+ | Platele | 187 | | | | [facility] | | | ts | | | | | [facility] [place] | | | [#/volu | | | | | Medical | | | me] in | | | | | Center | | | Blood | | | | | (NP) | | | by | | | | | | | | Automat | | | | | Hospita | | | ed | | | | | l | | | count | | | | | | | +---------+-------+-------+---------+---------+---------+---------+ + + + + | ID | Date | Data Source | + + + + | [id number] | 09/23/2019 02:13:00 | [facility] | | [id number] | 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) | | | | Hospital | + + + + +---------+-------+-------+---------+---------+---------+---------+ | Name | Value | Range | Interpr | Descrip | Data | Support | | | | | etation | tion | Source( | ing | | | | | Code | | s) | Documen | | | | | | | | t(s) | +---------+-------+-------+---------+---------+---------+---------+ | Erythro | 14.2 | | | | [facility] | | | cyte | | | | | [facility] [place] | | | distrib | | | | | Medical | | | ution | | | | | Center | | | width | | | | | ([facility]) | | | [Ratio] | | | | | | | | by | | | | | Hospita | | | Automat | | | | | l | | | ed | | | | | | | | count | | | | | | | +---------+-------+-------+---------+---------+---------+---------+ + + + + | ID | Date | Data Source | + + + + | [id number] | 09/23/2019 02:13:00 | [facility] | | [id number] | 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) | | | | Hospital | + + + + +---------+-------+-------+---------+---------+---------+---------+ | Name | Value | Range | Interpr | Descrip | Data | Support | | | | | etation | tion | Source( | ing | | | | | Code | | s) | Documen | | | | | | | | t(s) | +---------+-------+-------+---------+---------+---------+---------+ | Erythro | 31.6 | | | | [facility] | | | cyte | | | | | [facility] [place] | | | mean | | | | | Medical | | | corpusc | | | | | Center | | | ular | | | | | ([facility]) | | | hemoglo | | | | | | | | bin | | | | | Hospita | | | concent | | | | | l | | | ration | | | | | | | | [Mass/v | | | | | | | | olume] | | | | | | | | by | | | | | | | | Automat | | | | | | | | ed | | | | | | | | count | | | | | | | +---------+-------+-------+---------+---------+---------+---------+ + + + + | ID | Date | Data Source | + + + + | [id number] | 09/23/2019 02:13:00 | [facility] | | [id number] | 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) | | | | Hospital | + + + + +---------+-------+-------+---------+---------+---------+---------+ | Name | Value | Range | Interpr | Descrip | Data | Support | | | | | etation | tion | Source( | ing | | | | | Code | | s) | Documen | | | | | | | | t(s) | +---------+-------+-------+---------+---------+---------+---------+ | Mean | 30.1 | | | | [facility] | | | Corpusc | | | | | [facility] [place] | | | ular | | | | | Medical | | | Hemoglo | | | | | Center | | | bin | | | | | ([facility]) | | | | | | | | | | | | | | | | Hospita | | | | | | | | l | | +---------+-------+-------+---------+---------+---------+---------+ + + + + | ID | Date | Data Source | + + + + | [id number] | 09/23/2019 02:13:00 | [facility] | | [id number] | 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) | | | | Hospital | + + + + +---------+-------+-------+---------+---------+---------+---------+ | Name | Value | Range | Interpr | Descrip | Data | Support | | | | | etation | tion | Source( | ing | | | | | Code | | s) | Documen | | | | | | | | t(s) | +---------+-------+-------+---------+---------+---------+---------+ | Mean | 95.2 | | | | [facility] | | | Corpusc | | | | | [facility] [place] | | | ular | | | | | Medical | | | Volume | | | | | Center | | | | | | | | ([facility]) | | | | | | | | | | | | | | | | Hospita | | | | | | | | l | | +---------+-------+-------+---------+---------+---------+---------+ + + + + | ID | Date | Data Source | + + + + | [id number] | 09/23/2019 02:13:00 | [facility] | | [id number] | 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) | | | | Hospital | + + + + +---------+-------+-------+---------+---------+---------+---------+ | Name | Value | Range | Interpr | Descrip | Data | Support | | | | | etation | tion | Source( | ing | | | | | Code | | s) | Documen | | | | | | | | t(s) | +---------+-------+-------+---------+---------+---------+---------+ | Hematoc | 33.9 | | | | [facility] | | | rit | | | | | [facility] [place] | | | [Volume | | | | | Medical | | | | | | | | Center | | | Fractio | | | | | ([facility]) | | | n] of | | | | | | | | Blood | | | | | Hospita | | | by | | | | | l | | | Automat | | | | | | | | ed | | | | | | | | count | | | | | | | +---------+-------+-------+---------+---------+---------+---------+ + + + + | ID | Date | Data Source | + + + + | [id number] | 09/23/2019 02:13:00 | [facility] | | [id number] | 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) | | | | Hospital | + + + + +---------+-------+-------+---------+---------+---------+---------+ | Name | Value | Range | Interpr | Descrip | Data | Support | | | | | etation | tion | Source( | ing | | | | | Code | | s) | Documen | | | | | | | | t(s) | +---------+-------+-------+---------+---------+---------+---------+ | Hemoglo | 10.7 | | | | [facility] | | | bin | | | | | [facility] [place] | | | | | | | | Medical | | | | | | | | Center | | | | | | | | (NP) | | | | | | | | | | | | | | | | Hospita | | | | | | | | l | | +---------+-------+-------+---------+---------+---------+---------+ + + + + | ID | Date | Data Source | + + + + | [id number] | 09/23/2019 02:13:00 | [facility] | | [id number] | SHEAR GRINDER OPERATOR | Center ([facility]) | | | | Hospital | + + + + +---------+-------+-------+---------+---------+---------+---------+ | Name | Value | Range | Interpr | Descrip | Data | Support | | | | | etation | tion | Source( | ing | | | | | Code | | s) | Documen | | | | | | | | t(s) | +---------+-------+-------+---------+---------+---------+---------+ | Erythro | 3.56 | | | | [facility] | | | cytes | | | | | [facility] [place] | | | [#/volu | | | | | Medical | | | me] in | | | | | Center | | | Blood | | | | | ([facility]) | | | by | | | | | | | | Automat | | | | | Hospita | | | ed | | | | | l | | | count | | | | | | | +---------+-------+-------+---------+---------+---------+---------+ + + + + | ID | Date | Data Source | + + + + | [id number] | 09/23/2019 02:13:00 | [facility] | | [id number] | 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) | | | | Hospital | + + + + +--------+-------+-------+---------+---------+---------+---------+ | Name | Value | Range | Interpr | Descrip | Data | Support | | | | | etation | tion | Source( | ing | | | | | Code | | s) | Documen | | | | | | | | t(s) | +--------+-------+-------+---------+---------+---------+---------+ | White | 5.7 | | | | [facility] | | | Blood | | | | | [facility] [place] | | | Count | | | | | Medical | | | | | | | | Center | | | | | | | | ([facility]) | | | | | | | | | | | | | | | | Hospita | | | | | | | | l | | +--------+-------+-------+---------+---------+---------+---------+ + + + + | ID | Date | Data Source | + + + + | [id number] | 09/17/2019 03:40:00 | [facility] | | [id number] | PM SHEAR GRINDER OPERATOR | Center Clinics | + + + + +---------+-------+-------+---------+---------+---------+---------+ | Name | Value | Range | Interpr | Descrip | Data | Support | | | | | etation | tion | Source( | ing | | | | | Code | | s) | Documen | | | | | | | | t(s) | +---------+-------+-------+---------+---------+---------+---------+ | Amikaci | 2 | | Suscept | | [facility] | | | n | | | ible | | [facility] | | | [Suscep | | | | | Medical | | | tibilit | | | | | Center | | | y] by | | | | | | | | Minimum | | | | | Clinics | | | | | | | | | | | inhibit | | | | | | | | ory | | | | | | | | concent | | | | | | | | ration | | | | | | | | ([facility]) | | | | | | | +---------+-------+-------+---------+---------+---------+---------+ | Ceftazi | 16 | | Interme | | [facility] | | | dime | | | diate | | [facility] | | | [Suscep | | | | | Medical | | | tibilit | | | | | Center | | | y] by | | | | | | | | Minimum | | | | | Clinics | | | | | | | | | | | inhibit | | | | | | | | ory | | | | | | | | concent | | | | | | | | ration | | | | | | | | ([facility]) | | | | | | | +---------+-------+-------+---------+---------+---------+---------+ | Ciprofl | 1 | | Suscept | | [facility] | | | oxacin | | | ible | | [facility] | | | [Suscep | | | | | Medical | | | tibilit | | | | | Center | | | y] by | | | | | | | | Minimum | | | | | Clinics | | | | | | | | | | | inhibit | | | | | | | | ory | | | | | | | | concent | | | | | | | | ration | | | | | | | | ([facility]) | | | | | | | +---------+-------+-------+---------+---------+---------+---------+ | Cefepim | 64 | | Resista | | [facility] | | | e+Clavu | | | nt | | [facility] | | | lanate | | | | | Medical | | | [Suscep | | | | | Center | | | tibilit | | | | | | | | y] by | | | | | Clinics | | | Minimum | | | | | | | | | | | | | | | | inhibit | | | | | | | | ory | | | | | | | | concent | | | | | | | | ration | | | | | | | | ([facility]) | | | | | | | +---------+-------+-------+---------+---------+---------+---------+ | Gentami | 4 | | Suscept | | [facility] | | | paty | | | ible | | [facility] | | | [Suscep | | | | | Medical | | | tibilit | | | | | Center | | | y] by | | | | | | | | Minimum | | | | | Clinics | | | | | | | | | | | inhibit | | | | | | | | ory | | | | | | | | concent | | | | | | | | ration | | | | | | | | ([facility]) | | | | | | | +---------+-------+-------+---------+---------+---------+---------+ | Levoflo | 2 | | Suscept | | [facility] | | | xacin | | | ible | | [facility] | | | [Suscep | | | | | Medical | | | tibilit | | | | | Center | | | y] by | | | | | | | | Minimum | | | | | Clinics | | | | | | | | | | | inhibit | | | | | | | | ory | | | | | | | | concent | | | | | | | | ration | | | | | | | | ([facility]) | | | | | | | +---------+-------+-------+---------+---------+---------+---------+ | Meropen | 8 | | Interme | | [facility] | | | em | | | diate | | [facility] | | | [Suscep | | | | | Medical | | | tibilit | | | | | Center | | | y] by | | | | | | | | Minimum | | | | | Clinics | | | | | | | | | | | inhibit | | | | | | | | ory | | | | | | | | concent | | | | | | | | ration | | | | | | | | ([facility]) | | | | | | | +---------+-------+-------+---------+---------+---------+---------+ | Tobramy | 1 | | Suscept | | [facility] | | | paty | | | ible | | [facility] | | | [Suscep | | | | | Medical | | | tibilit | | | | | Center | | | y] | | | | | | | | | | | | | Clinics | | +---------+-------+-------+---------+---------+---------+---------+ | [facility] | 32 | | Interme | | [facility] | | | illin+T | | | diate | | [facility] | | | azobact | | | | | Medical | | | am | | | | | Center | | | [Suscep | | | | | | | | tibilit | | | | | Clinics | | | y] by | | | | | | | | Minimum | | | | | | | | | | | | | | | | inhibit | | | | | | | | ory | | | | | | | | concent | | | | | | | | ration | | | | | | | | (MECHELLE) | | | | | | | +---------+-------+-------+---------+---------+---------+---------+ + + + + | ID | Date | Data Source | + + + + | [id number] | 09/17/2019 03:40:00 | [facility] | | [id number] | [facility] [employer] | [facility] | + + + + +---------+---------+-------+---------+---------+---------+---------+ | Name | Value | Range | Interpr | Descrip | Data | Support | | | | | etation | tion | Source( | ing | | | | | Code | | s) | Documen | | | | | | | | t(s) | +---------+---------+-------+---------+---------+---------+---------+ | Bacteri | Pseudom | | | | [facility] | | | a | [facility]as | | | | [facility] | | | identif | putida | | | | Medical | | | ied in | | | | | Center | | | Wound | | | | | | | | by | | | | | Clinics | | | Aerobe | | | | | | | | culture | | | | | | | +---------+---------+-------+---------+---------+---------+---------+ + + + + | ID | Date | Data Source | + + + + | [id number] | 09/17/2019 03:40:00 | [facility] | | [id number] | [facility] [employer] | [facility] | + + + + +---------+-------+-------+---------+---------+---------+---------+ | Name | Value | Range | Interpr | Descrip | Data | Support | | | | | etation | tion | Source( | ing | | | | | Code | | s) | Documen | | | | | | | | t(s) | +---------+-------+-------+---------+---------+---------+---------+ | Bacteri | [id number] | | | | [facility] | | | a | | | | | [facility] | | | identif | | | | | Medical | | | ied in | | | | | Center | | | Unspeci | | | | | | | | fied | | | | | Clinics | | | specime | | | | | | | | n by | | | | | | | | Anaerob | | | | | | | | e | | | | | | | | culture | | | | | | | +---------+-------+-------+---------+---------+---------+---------+ + + | NO GROWTH AT 5 DAYS. | + + + + + + | ID | Date | Data Source | + + + + | [id number] | 09/17/2019 03:40:00 | [facility] | | [id number] | PM SHEAR GRINDER OPERATOR | [facility] | + + + + +---------+-------+-------+---------+---------+---------+---------+ | Name | Value | Range | Interpr | Descrip | Data | Support | | | | | etation | tion | Source( | ing | | | | | Code | | s) | Documen | | | | | | | | t(s) | +---------+-------+-------+---------+---------+---------+---------+ | Amikaci | 2 | | Suscept | | [facility] | | | n | | | ible | | [place] | | | [Suscep | | | | | Medical | | | tibilit | | | | | Center | | | y] by | | | | | | | | Minimum | | | | | Clinics | | | | | | | | | | | inhibit | | | | | | | | ory | | | | | | | | concent | | | | | | | | ration | | | | | | | | (MECHELLE) | | | | | | | +---------+-------+-------+---------+---------+---------+---------+ | Ceftazi | 16 | | Interme | | [facility] | | | dime | | | diate | | [place] | | | [Suscep | | | | | Medical | | | tibilit | | | | | Center | | | y] by | | | | | | | | Minimum | | | | | Clinics | | | | | | | | | | | inhibit | | | | | | | | ory | | | | | | | | concent | | | | | | | | ration | | | | | | | | (MECHELLE) | | | | | | | +---------+-------+-------+---------+---------+---------+---------+ | Ciprofl | 1 | | Suscept | | [facility] | | | oxacin | | | ible | | [place] | | | [Suscep | | | | | Medical | | | tibilit | | | | | Center | | | y] by | | | | | | | | Minimum | | | | | Clinics | | | | | | | | | | | inhibit | | | | | | | | ory | | | | | | | | concent | | | | | | | | ration | | | | | | | | (MECHELLE) | | | | | | | +---------+-------+-------+---------+---------+---------+---------+ | Cefepim | 64 | | Resista | | [facility] | | | e+Clavu | | | nt | | [place] | | | lanate | | | | | Medical | | | [Suscep | | | | | Center | | | tibilit | | | | | | | | y] by | | | | | Clinics | | | Minimum | | | | | | | | | | | | | | | | inhibit | | | | | | | | ory | | | | | | | | concent | | | | | | | | ration | | | | | | | | (MECHELLE) | | | | | | | +---------+-------+-------+---------+---------+---------+---------+ | Gentami | 4 | | Suscept | | [facility] | | | paty | | | ible | | [place] | | | [Suscep | | | | | Medical | | | tibilit | | | | | Center | | | y] by | | | | | | | | Minimum | | | | | Clinics | | | | | | | | | | | inhibit | | | | | | | | ory | | | | | | | | concent | | | | | | | | ration | | | | | | | | (MECHELLE) | | | | | | | +---------+-------+-------+---------+---------+---------+---------+ | Levoflo | 2 | | Suscept | | [facility] | | | xacin | | | ible | | [place] | | | [Suscep | | | | | Medical | | | tibilit | | | | | Center | | | y] by | | | | | | | | Minimum | | | | | Clinics | | | | | | | | | | | inhibit | | | | | | | | ory | | | | | | | | concent | | | | | | | | ration | | | | | | | | (MECHELLE) | | | | | | | +---------+-------+-------+---------+---------+---------+---------+ | Meropen | 8 | | Interme | | [facility] | | | em | | | diate | | [place] | | | [Suscep | | | | | Medical | | | tibilit | | | | | Center | | | y] by | | | | | | | | Minimum | | | | | Clinics | | | | | | | | | | | inhibit | | | | | | | | ory | | | | | | | | concent | | | | | | | | ration | | | | | | | | (MECHELLE) | | | | | | | +---------+-------+-------+---------+---------+---------+---------+ | Tobramy | 1 | | Suscept | | [facility] | | | paty | | | ible | | [place] | | | [Suscep | | | | | Medical | | | tibilit | | | | | Center | | | y] | | | | | | | | | | | | | Clinics | | +---------+-------+-------+---------+---------+---------+---------+ | Piperac | 32 | | Interme | | [facility] | | | illin+T | | | diate | | [place] | | | azobact | | | | | Medical | | | am | | | | | Center | | | [Suscep | | | | | | | | tibilit | | | | | Clinics | | | y] by | | | | | | | | Minimum | | | | | | | | | | | | | | | | inhibit | | | | | | | | ory | | | | | | | | concent | | | | | | | | ration | | | | | | | | (MECHELLE) | | | | | | | +---------+-------+-------+---------+---------+---------+---------+ + + + + | ID | Date | Data Source | + + + + | [id number] | 09/17/2019 03:40:00 | [facility] | | [id number] | PM SHEAR GRINDER OPERATOR | [facility] | + + + + +---------+---------+-------+---------+---------+---------+---------+ | Name | Value | Range | Interpr | Descrip | Data | Support | | | | | etation | tion | Source( | ing | | | | | Code | | s) | Documen | | | | | | | | t(s) | +---------+---------+-------+---------+---------+---------+---------+ | Bacteri | Pseudom | | | | [facility] | | | a | onas | | | | [place] | | | identif | putida | | | | Medical | | | ied in | | | | | Center | | | Wound | | | | | | | | by | | | | | Clinics | | | Aerobe | | | | | | | | culture | | | | | | | +---------+---------+-------+---------+---------+---------+---------+ + + + + | ID | Date | Data Source | + + + + | [id number] | 09/17/2019 03:40:00 | [facility] | | [id number] | PM SHEAR GRINDER OPERATOR | [facility] | + + + + +---------+-------+-------+---------+---------+---------+---------+ | Name | Value | Range | Interpr | Descrip | Data | Support | | | | | etation | tion | Source( | ing | | | | | Code | | s) | Documen | | | | | | | | t(s) | +---------+-------+-------+---------+---------+---------+---------+ | Bacteri | MNG5 | | | | [facility] | | | a | | | | | [place] | | | identif | | | | | Medical | | | ied in | | | | | Center | | | Unspeci | | | | | | | | fied | | | | | Clinics | | | specime | | | | | | | | n by | | | | | | | | Anaerob | | | | | | | | e | | | | | | | | culture | | | | | | | +---------+-------+-------+---------+---------+---------+---------+ + + | NO GROWTH AT 5 DAYS. | + + + + + + | ID | Date | Data Source | + + + + | [id number] | 09/15/2019 08:10:00 | [facility] | | [id number] | 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 | [place] | + + + + +---------+-------+-------+---------+---------+---------+---------+ | Name | Value | Range | Interpr | Descrip | Data | Support | | | | | etation | tion | Source( | ing | | | | | Code | | s) | Documen | | | | | | | | t(s) | +---------+-------+-------+---------+---------+---------+---------+ | Amikaci | 2 | | Suscept | | Healths | | | n | | | ible | | tar | | | [Suscep | | | | | Physici | | | tibilit | | | | | ans Hot | | | y] by | | | | | | | | Minimum | | | | | Regan | | | | | | | | [place] | | | inhibit | | | | | | | | ory | | | | | | | | concent | | | | | | | | ration | | | | | | | | (MECHELLE) | | | | | | | +---------+-------+-------+---------+---------+---------+---------+ | Ceftazi | 1 | | Suscept | | Healths | | | dime | | | ible | | tar | | | [Suscep | | | | | Physici | | | tibilit | | | | | ans Hot | | | y] by | | | | | | | | Minimum | | | | | Regan | | | | | | | | [place] | | | inhibit | | | | | | | | ory | | | | | | | | concent | | | | | | | | ration | | | | | | | | (MECHELLE) | | | | | | | +---------+-------+-------+---------+---------+---------+---------+ | Ciprofl | 2 | | Interme | | Healths | | | oxacin | | | diate | | tar | | | [Suscep | | | | | Physici | | | tibilit | | | | | ans Hot | | | y] by | | | | | | | | Minimum | | | | | Regan | | | | | | | | [place] | | | inhibit | | | | | | | | ory | | | | | | | | concent | | | | | | | | ration | | | | | | | | (MECHELLE) | | | | | | | +---------+-------+-------+---------+---------+---------+---------+ | Ceftria | 1 | | Suscept | | Healths | | | xone | | | ible | | tar | | | [Suscep | | | | | Physici | | | tibilit | | | | | ans Hot | | | y] by | | | | | | | | Minimum | | | | | Regan | | | | | | | | [place] | | | inhibit | | | | | | | | ory | | | | | | | | concent | | | | | | | | ration | | | | | | | | (MECHELLE) | | | | | | | +---------+-------+-------+---------+---------+---------+---------+ | Cefazol | 64 | | Resista | | Healths | | | in | | | nt | | tar | | | [Suscep | | | | | Physici | | | tibilit | | | | | ans Hot | | | y] by | | | | | | | | Minimum | | | | | Regan | | | | | | | | [place] | | | inhibit | | | | | | | | ory | | | | | | | | concent | | | | | | | | ration | | | | | | | | (MECHELLE) | | | | | | | +---------+-------+-------+---------+---------+---------+---------+ | Cefepim | 1 | | Suscept | | Healths | | | e+Clavu | | | ible | | tar | | | lanate | | | | | Physici | | | [Suscep | | | | | ans Hot | | | tibilit | | | | | | | | y] by | | | | | Regan | | | Minimum | | | | | Sadaf | | | | | | | | | | | inhibit | | | | | | | | ory | | | | | | | | concent | | | | | | | | ration | | | | | | | | (MECHELLE) | | | | | | | +---------+-------+-------+---------+---------+---------+---------+ | Cefoxit | 64 | | Resista | | Healths | | | in | | | nt | | tar | | | [Suscep | | | | | Physici | | | tibilit | | | | | ans Hot | | | y] by | | | | | | | | Minimum | | | | | Regan | | | | | | | | Sadaf | | | inhibit | | | | | | | | ory | | | | | | | | concent | | | | | | | | ration | | | | | | | | (MECHELLE) | | | | | | | +---------+-------+-------+---------+---------+---------+---------+ | Nitrofu | 64 | | Interme | | Healths | | | rantoin | | | diate | | tar | | | | | | | | Physici | | | [Suscep | | | | | ans Hot | | | tibilit | | | | | | | | y] by | | | | | Regan | | | Minimum | | | | | [place] | | | | | | | | | | | inhibit | | | | | | | | ory | | | | | | | | concent | | | | | | | | ration | | | | | | | | (MECHELLE) | | | | | | | +---------+-------+-------+---------+---------+---------+---------+ | Gentami | 16 | | Resista | | Healths | | | paty | | | nt | | tar | | | [Suscep | | | | | Physici | | | tibilit | | | | | ans Hot | | | y] by | | | | | | | | Minimum | | | | | Regan | | | | | | | | [place] | | | inhibit | | | | | | | | ory | | | | | | | | concent | | | | | | | | ration | | | | | | | | (MECHELLE) | | | | | | | +---------+-------+-------+---------+---------+---------+---------+ | Levoflo | 4 | | Interme | | Healths | | | xacin | | | diate | | tar | | | [Suscep | | | | | Physici | | | tibilit | | | | | ans Hot | | | y] by | | | | | | | | Minimum | | | | | Regan | | | | | | | | [place] | | | inhibit | | | | | | | | ory | | | | | | | | concent | | | | | | | | ration | | | | | | | | (MECHELLE) | | | | | | | +---------+-------+-------+---------+---------+---------+---------+ | Meropen | 0.25 | | Suscept | | Healths | | | em | | | ible | | tar | | | [Suscep | | | | | Physici | | | tibilit | | | | | ans Hot | | | y] by | | | | | | | | Minimum | | | | | Regan | | | | | | | | [place] | | | inhibit | | | | | | | | ory | | | | | | | | concent | | | | | | | | ration | | | | | | | | (MECHELLE) | | | | | | | +---------+-------+-------+---------+---------+---------+---------+ | Trimeth | 320 | | Resista | | Healths | | | oprim+S | | | nt | | tar | | | ulfamet | | | | | Physici | | | hoxazol | | | | | ans Hot | | | e | | | | | | | | [Suscep | | | | | Regan | | | tibilit | | | | | Sadaf | | | y] by | | | | | | | | Minimum | | | | | | | | | | | | | | | | inhibit | | | | | | | | ory | | | | | | | | concent | | | | | | | | ration | | | | | | | | (MECHELLE) | | | | | | | +---------+-------+-------+---------+---------+---------+---------+ | Tobramy | 4 | | Suscept | | Healths | | | paty | | | ible | | tar | | | [Suscep | | | | | Physici | | | tibilit | | | | | ans Hot | | | y] | | | | | | | | | | | | | Regan | | | | | | | | [place] | | +---------+-------+-------+---------+---------+---------+---------+ + + + + | ID | Date | Data Source | + + + + | [id number] | 09/15/2019 08:10:00 | [facility] | | [id number] | 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 | [place] | + + + + +---------+-------+-------+---------+---------+---------+---------+ | Name | Value | Range | Interpr | Descrip | Data | Support | | | | | etation | tion | Source( | ing | | | | | Code | | s) | Documen | | | | | | | | t(s) | +---------+-------+-------+---------+---------+---------+---------+ | Ampicil | 32 | | Resista | | Healths | | | [place] | | | nt | | tar | | | [Suscep | | | | | Physici | | | tibilit | | | | | ans Hot | | | y] by | | | | | | | | Minimum | | | | | Regan | | | | | | | | [place] | | | inhibit | | | | | | | | ory | | | | | | | | concent | | | | | | | | ration | | | | | | | | (MECHELLE) | | | | | | | +---------+-------+-------+---------+---------+---------+---------+ | Amikaci | 2 | | Suscept | | Healths | | | n | | | ible | | tar | | | [Suscep | | | | | Physici | | | tibilit | | | | | ans Hot | | | y] by | | | | | | | | Minimum | | | | | Regan | | | | | | | | [place] | | | inhibit | | | | | | | | ory | | | | | | | | concent | | | | | | | | ration | | | | | | | | ([place]ECHELLE) | | | | | | | +---------+-------+-------+---------+---------+---------+---------+ | Ceftazi | | | Resista | | Healths | | | dime | | | nt | | tar | | | [Suscep | | | | | Physici | | | tibilit | | | | | ans Hot | | | y] by | | | | | | | | Minimum | | | | | Regan | | | | | | | | Sadaf | | | inhibit | | | | | | | | ory | | | | | | | | concent | | | | | | | | ration | | | | | | | | (MECHELLE) | | | | | | | +---------+-------+-------+---------+---------+---------+---------+ | Ciprofl | 0.25 | | Suscept | | Healths | | | oxacin | | | ible | | tar | | | [Suscep | | | | | Physici | | | tibilit | | | | | ans Hot | | | y] by | | | | | | | | Minimum | | | | | Regan | | | | | | | | [place] | | | inhibit | | | | | | | | ory | | | | | | | | concent | | | | | | | | ration | | | | | | | | (MECHELLE) | | | | | | | +---------+-------+-------+---------+---------+---------+---------+ | Ceftria | 64 | | Resista | | Healths | | | xone | | | nt | | tar | | | [Suscep | | | | | Physici | | | tibilit | | | | | ans Hot | | | y] by | | | | | | | | Minimum | | | | | Regan | | | | | | | | Sadaf | | | inhibit | | | | | | | | ory | | | | | | | | concent | | | | | | | | ration | | | | | | | | (MECHELLE) | | | | | | | +---------+-------+-------+---------+---------+---------+---------+ | Cefazol | 64 | | Resista | | Healths | | | in | | | nt | | tar | | | [Suscep | | | | | Physici | | | tibilit | | | | | ans Hot | | | y] by | | | | | | | | Minimum | | | | | Regan | | | | | | | | [place] | | | inhibit | | | | | | | | ory | | | | | | | | concent | | | | | | | | ration | | | | | | | | (MECHELLE) | | | | | | | +---------+-------+-------+---------+---------+---------+---------+ | Beta | | | Positiv | | Healths | | | lactama | | | e | | tar | | | se.exte | | | | | Physici | | | nded | | | | | ans Hot | | | spectru | | | | | | | | m | | | | | Regan | | | [Suscep | | | | | Sadaf | | | tibilit | | | | | | | | y] | | | | | | | +---------+-------+-------+---------+---------+---------+---------+ | Cefepim | | | Resista | | Healths | | | e+Clavu | | | nt | | tar | | | lanate | | | | | Physici | | | [Suscep | | | | | ans Hot | | | tibilit | | | | | | | | y] by | | | | | Regan | | | Minimum | | | | | [place] | | | | | | | | | | | inhibit | | | | | | | | ory | | | | | | | | concent | | | | | | | | ration | | | | | | | | (MECHELLE) | | | | | | | +---------+-------+-------+---------+---------+---------+---------+ | Cefoxit | 4 | | Suscept | | Healths | | | in | | | ible | | tar | | | [Suscep | | | | | Physici | | | tibilit | | | | | ans Hot | | | y] by | | | | | | | | Minimum | | | | | Regan | | | | | | | | [place] | | | inhibit | | | | | | | | ory | | | | | | | | concent | | | | | | | | ration | | | | | | | | (MECHELLE) | | | | | | | +---------+-------+-------+---------+---------+---------+---------+ | Nitrofu | 16 | | Suscept | | Healths | | | rantoin | | | ible | | tar | | | | | | | | Physici | | | [Suscep | | | | | ans Hot | | | tibilit | | | | | | | | y] by | | | | | Regan | | | Minimum | | | | | Sadaf | | | | | | | | | | | inhibit | | | | | | | | ory | | | | | | | | concent | | | | | | | | ration | | | | | | | | (MECHELLE) | | | | | | | +---------+-------+-------+---------+---------+---------+---------+ | Gentami | 1 | | Suscept | | Healths | | | paty | | | ible | | tar | | | [Suscep | | | | | Physici | | | tibilit | | | | | ans Hot | | | y] by | | | | | | | | Minimum | | | | | Regan | | | | | | | | Sadaf | | | inhibit | | | | | | | | ory | | | | | | | | concent | | | | | | | | ration | | | | | | | | (MECHELLE) | | | | | | | +---------+-------+-------+---------+---------+---------+---------+ | Levoflo | 0.12 | | Suscept | | Healths | | | xacin | | | ible | | tar | | | [Suscep | | | | | Physici | | | tibilit | | | | | ans Hot | | | y] by | | | | | | | | Minimum | | | | | Regan | | | | | | | | [place] | | | inhibit | | | | | | | | ory | | | | | | | | concent | | | | | | | | ration | | | | | | | | (MECHELLE) | | | | | | | +---------+-------+-------+---------+---------+---------+---------+ | Meropen | 0.25 | | Suscept | | Healths | | | em | | | ible | | tar | | | [Suscep | | | | | Physici | | | tibilit | | | | | ans Hot | | | y] by | | | | | | | | Minimum | | | | | Regan | | | | | | | | [place] | | | inhibit | | | | | | | | ory | | | | | | | | concent | | | | | | | | ration | | | | | | | | (MECHELLE) | | | | | | | +---------+-------+-------+---------+---------+---------+---------+ | Ampicil | 4 | | Suscept | | Healths | | | flor[place]+Sul | | | ible | | tar | | | bactam | | | | | Physici | | | [Suscep | | | | | ans Hot | | | tibilit | | | | | | | | y] by | | | | | Regan | | | Minimum | | | | | [place] | | | | | | | | | | | inhibit | | | | | | | | ory | | | | | | | | concent | | | | | | | | ration | | | | | | | | ([place]ECHELLE) | | | | | | | +---------+-------+-------+---------+---------+---------+---------+ | Trimeth | 20 | | Suscept | | Healths | | | oprim+S | | | ible | | tar | | | ulfamet | | | | | Physici | | | hoxazol | | | | | ans Hot | | | e | | | | | | | | [Suscep | | | | | Regan | | | tibilit | | | | | [place] | | | y] by | | | | | | | | Minimum | | | | | | | | | | | | | | | | inhibit | | | | | | | | ory | | | | | | | | concent | | | | | | | | ration | | | | | | | | (MECHELLE) | | | | | | | +---------+-------+-------+---------+---------+---------+---------+ | Tobramy | 1 | | Suscept | | Healths | | | paty | | | ible | | tar | | | [Suscep | | | | | Physici | | | tibilit | | | | | ans Hot | | | y] | | | | | | | | | | | | | Regan | | | | | | | | Sadaf | | +---------+-------+-------+---------+---------+---------+---------+ | Piperac | 4 | | Suscept | | Healths | | | illin+T | | | ible | | tar | | | azobact | | | | | Physici | | | am | | | | | ans Hot | | | [Suscep | | | | | | | | tibilit | | | | | Regan | | | y] by | | | | | [place] | | | Minimum | | | | | | | | | | | | | | | | inhibit | | | | | | | | ory | | | | | | | | concent | | | | | | | | ration | | | | | | | | (MECHELLE) | | | | | | | +---------+-------+-------+---------+---------+---------+---------+ + + + + | ID | Date | Data Source | + + + + | [id number] | 09/15/2019 08:10:00 | [facility] | | [id number] | 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 | [place] | + + + + +---------+-------+-------+---------+---------+---------+---------+ | Name | Value | Range | Interpr | Descrip | Data | Support | | | | | etation | tion | Source( | ing | | | | | Code | | s) | Documen | | | | | | | | t(s) | +---------+-------+-------+---------+---------+---------+---------+ | Bacteri | | | | | Healths | | | a | | | | | tar | | | identif | | | | | Physici | | | ied in | | | | | ans Hot | | | Urine | | | | | | | | by | | | | | Regan | | | Culture | | | | | [place] | | +---------+-------+-------+---------+---------+---------+---------+ + + | Extended Spectrum Beta-Lactamase (ESBL) Positive | | Contact Isolation is Required This organism is an | | extended-spectrum beta-lactamse (ESBL)theater company producer. Despite apparent in | | vitro susceptibility topenicillins and cephalosporins, this organism | | may beclinically resistant to therapy with these agents and, perthe | | [facility] (formerly [facility]), we have changed the results toindicate this. | | .brSBL can inactivate most beta-lactamase antimicrobials,including | | penicillins, cephalosporins, cephamycins, mono-bactams, and | | carbapenems. 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 | [place] | + + + + +---------+--------+-------+---------+---------+---------+---------+ | Name | Value | Range | Interpr | Descrip | Data | Support | | | | | etation | tion | Source( | ing | | | | | Code | | s) | Documen | | | | | | | | t(s) | +---------+--------+-------+---------+---------+---------+---------+ | CULTURE | [id number] | | | | Healths | | | , BLOOD | | | | | tar | | | X 2 | | | | | Physici | | | | | | | | ans Hot | | | | | | | | | | | | | | | | Regan | | | | | | | | Sadaf | | +---------+--------+-------+---------+---------+---------+---------+ + + | AEROBIC AND ANAEROBIC BOTTLES:NO GROWTH AT FIVE (5) DAYS. 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 | [place] | + + + + +---------+--------+-------+---------+---------+---------+---------+ | Name | Value | Range | Interpr | Descrip | Data | Support | | | | | etation | tion | Source( | ing | | | | | Code | | s) | Documen | | | | | | | | t(s) | +---------+--------+-------+---------+---------+---------+---------+ | CULTURE | [id number] | | | | Healths | | | , BLOOD | | | | | tar | | | X 2 | | | | | Physici | | | | | | | | ans Hot | | | | | | | | | | | | | | | | [place] | | | | | | | | [place] | | +---------+--------+-------+---------+---------+---------+---------+ + + | AEROBIC AND ANAEROBIC BOTTLES:NO GROWTH AT FIVE (5) DAYS. | + + + + + + | ID | Date | Data Source | + + + + | [id number] | 09/13/2019 12:34:00 | [facility] | | [id number] | PM [employer] | [place] [facility] | + + + + +---------+---------+---------+---------+---------+---------+---------+ | Name | Value | Range | Interpr | Descrip | Data | Support | | | | | etation | tion | Source( | ing | | | | | Code | | s) | Documen | | | | | | | | t(s) | +---------+---------+---------+---------+---------+---------+---------+ | Leukocy | 22.4 | 4.0-11. | High | | Healths | | | tracie | K/uL | 0 | | | tar | | | [#/volu | | | | | Physici | | | me] in | | | | | ans Hot | | | Blood | | | | | | | | by | | | | | [facility] | | | Automat | | | | | [facility] | | | ed | | | | | | | | count | | | | | | | +---------+---------+---------+---------+---------+---------+---------+ | Erythro | 3.97 | 4.00-5. | Low | | Healths | | | cytes | M/uL | 50 | | | tar | | | [#/volu | | | | | Physici | | | me] in | | | | | ans Hot | | | Blood | | | | | | | | by | | | | | [facility] | | | Automat | | | | | [place] | | | ed | | | | | | | | count | | | | | | | +---------+---------+---------+---------+---------+---------+---------+ | Hemoglo | 12.3 | 12.0-16 | | | Healths | | | bin | g/dL | .0 | | | tar | | | [Mass/v | | | | | Physici | | | olume] | | | | | ans Hot | | | in | | | | | | | | Blood | | | | | [facility] | | | | | | | | [facility] | | +---------+---------+---------+---------+---------+---------+---------+ | Hematoc | 36.7 % | 36.0-48 | | | Healths | | | rit | | .0 | | | tar | | | [Volume | | | | | Physici | | | | | | | | ans Hot | | | Fractio | | | | | | | | n] of | | | | | [facility] | | | Blood | | | | | [place] | | +---------+---------+---------+---------+---------+---------+---------+ | Erythro | 92.4 fL | 78.0-10 | | | Healths | | | cyte | | 2.0 | | | tar | | | mean | | | | | Physici | | | corpusc | | | | | ans Hot | | | ular | | | | | | | | volume | | | | | [facility] | | | [Entiti | | | | | [facility] | | | c | | | | | | | | volume] | | | | | | | | by | | | | | | | | Automat | | | | | | | | ed | | | | | | | | count | | | | | | | +---------+---------+---------+---------+---------+---------+---------+ | Erythro | 31.0 pg | 25.0-35 | | | Healths | | | cyte | | .0 | | | tar | | | mean | | | | | Physici | | | corpusc | | | | | [facility] | | | ular | | | | | | | | hemoglo | | | | | [facility] | | | bin | | | | | [place] | | | [Entiti | | | | | | | | c mass] | | | | | | | | by | | | | | | | | Automat | | | | | | | | ed | | | | | | | | count | | | | | | | +---------+---------+---------+---------+---------+---------+---------+ | Erythro | 33.5 | 30.0-38 | | | Healths | | | cyte | g/dL | .0 | | | tar | | | mean | | | | | Physici | | | corpusc | | | | | ans Hot | | | ular | | | | | | | | hemoglo | | | | | [facility] | | | bin | | | | | [place] | | | concent | | | | | | | | ration | | | | | | | | [Mass/v | | | | | | | | olume] | | | | | | | | by | | | | | | | | Automat | | | | | | | | ed | | | | | | | | count | | | | | | | +---------+---------+---------+---------+---------+---------+---------+ | Erythro | 12.7 % | 11.5-16 | | | Healths | | | cyte | | .0 | | | tar | | | distrib | | | | | Physici | | | ution | | | | | ans Hot | | | width | | | | | | | | [Ratio] | | | | | [facility] | | | by | | | | | [facility] | | | Automat | | | | | | | | ed | | | | | | | | count | | | | | | | +---------+---------+---------+---------+---------+---------+---------+ | Platele | 193 | 150-450 | | | Healths | | | ts | K/uL | | | | tar | | | [#/volu | | | | | Physici | | | me] in | | | | | ans Hot | | | Blood | | | | | | | | by | | | | | [facility] | | | Automat | | | | | [place] | | | ed | | | | | | | | count | | | | | | | +---------+---------+---------+---------+---------+---------+---------+ | Segment | 20.7 | 1.8-7.0 | High | | Healths | | | ed | K/uL | | | | tar | | | neutrop | | | | | Physici | | | hils | | | | | ans Hot | | | [#/volu | | | | | | | | me] in | | | | | [facility] | | | Blood | | | | | [facility] | | +---------+---------+---------+---------+---------+---------+---------+ | Lymphoc | 0.6 | 1.0-4.0 | Low | | Healths | | | ytes | K/uL | | | | tar | | | [#/volu | | | | | Physici | | | me] in | | | | | ans Hot | | | Blood | | | | | | | | by | | | | | [facility] | | | Automat | | | | | [place] | | | ed | | | | | | | | count | | | | | | | +---------+---------+---------+---------+---------+---------+---------+ | Monocyt | 0.7 | 0.1-1.1 | | | Healths | | | es | K/uL | | | | tar | | | [#/volu | | | | | Physici | | | me] in | | | | | ans Hot | | | Blood | | | | | | | | by | | | | | [facility] | | | Automat | | | | | [facility] | | | ed | | | | | | | | count | | | | | | | +---------+---------+---------+---------+---------+---------+---------+ | Eosinop | 0.0 | 0.0-0.5 | | | Healths | | | hils | K/uL | | | | tar | | | [#/volu | | | | | Physici | | | me] in | | | | | ans Hot | | | Blood | | | | | | | | by | | | | | [facility] | | | Automat | | | | | [place] | | | ed | | | | | | | | count | | | | | | | +---------+---------+---------+---------+---------+---------+---------+ | Basophi | 0.1 | 0.0-0.3 | | | Healths | | | ls | K/uL | | | | tar | | | [#/volu | | | | | Physici | | | me] in | | | | | ans Hot | | | Blood | | | | | | | | | | | | | [facility] | | | | | | | | [facility] | | +---------+---------+---------+---------+---------+---------+---------+ | Band | 0.2 | <0.1 | High | | Healths | | | form | K/uL | | | | tar | | | neutrop | | | | | Physici | | | hils | | | | | ans Hot | | | [#/volu | | | | | | | | me] in | | | | | [facility] | | | Blood | | | | | [facility] | | | by | | | | | | | | Automat | | | | | | | | ed | | | | | | | | count | | | | | | | +---------+---------+---------+---------+---------+---------+---------+ | Segment | 92.6 % | | | | Healths | | | ed | | | | | tar | | | neutrop | | | | | Physici | | | hils/10 | | | | | ans Hot | | | 0 | | | | | | | | leukocy | | | | | [facility] | | | tracie in | | | | | [place] | | | Blood | | | | | | | +---------+---------+---------+---------+---------+---------+---------+ | Lymphoc | 2.8 % | | | | Healths | | | ytes/10 | | | | | tar | | | 0 | | | | | Physici | | | leukocy | | | | | ans Hot | | | tracie in | | | | | | | | Blood | | | | | [facility] | | | | | | | | [facility] | | +---------+---------+---------+---------+---------+---------+---------+ | Monocyt | 3.3 % | | | | Healths | | | es/100 | | | | | tar | | | leukocy | | | | | Physici | | | tracie in | | | | | ans Hot | | | Blood | | | | | | | | | | | | | [facility] | | | | | | | | [facility] | | +---------+---------+---------+---------+---------+---------+---------+ | Eosinop | 0.0 % | | | | Healths | | | hils/10 | | | | | tar | | | 0 | | | | | Physici | | | leukocy | | | | | ans Hot | | | tracie in | | | | | | | | Blood | | | | | [facility] | | | | | | | | [place] | | +---------+---------+---------+---------+---------+---------+---------+ | Basophi | 0.4 % | | | | Healths | | | ls/100 | | | | | tar | | | leukocy | | | | | Physici | | | tracie in | | | | | ans Hot | | | Blood | | | | | | | | | | | | | [facility] | | | | | | | | [place] | | +---------+---------+---------+---------+---------+---------+---------+ | Band | 0.9 % | | | | Healths | | | form | | | | | tar | | | neutrop | | | | | Physici | | | hils/10 | | | | | ans Hot | | | 0 | | | | | | | | leukocy | | | | | [facility] | | | tracie in | | | | | [facility] | | | Blood | | | | | | | | by | | | | | | | | Manual | | | | | | | | count | | | | | | | +---------+---------+---------+---------+---------+---------+---------+ + + + + | ID | Date | Data Source | + + + + | [id number] | 09/13/2019 12:34:00 | [facility] | | [id number] | 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 | [place] | + + + + +--------+-------+-------+---------+---------+---------+---------+ | Name | Value | Range | Interpr | Descrip | Data | Support | | | | | etation | tion | Source( | ing | | | | | Code | | s) | Documen | | | | | | | | t(s) | +--------+-------+-------+---------+---------+---------+---------+ | BLOOD | See | | | | Healths | | | FILM | Note | | | | tar | | | FOR | | | | | Physici | | | REVIEW | | | | | ans Hot | | | | | | | | | | | | | | | | [facility] | | | | | | | | [place] | | +--------+-------+-------+---------+---------+---------+---------+ + + | Comments on Lab Id:[id number] RBC Morphology: Elliptocytes +, | | Poikilocytosis +++, [place] Cells +++ Platelets Normal | + + + + + + | ID | Date | Data Source | + + + + | [id number] | 09/13/2019 12:34:00 | [facility] | | [id number] | 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 | [place] | + + + + +--------+-------+-------+---------+---------+---------+---------+ | Name | Value | Range | Interpr | Descrip | Data | Support | | | | | etation | tion | Source( | ing | | | | | Code | | s) | Documen | | | | | | | | t(s) | +--------+-------+-------+---------+---------+---------+---------+ | BLOOD | See | | | | Healths | | | FILM | Note | | | | tar | | | FOR | | | | | Physici | | | REVIEW | | | | | ans Hot | | | | | | | | | | | | | | | | [facility] | | | | | | | | [facility] | | +--------+-------+-------+---------+---------+---------+---------+ + + | Comments on Lab Id:[id number] RBC Morphology: Elliptocytes +, | | Poikilocytosis +++, [place] Cells +++ Platelets Normal | + + + + + + | ID | Date | Data Source | + + + + | [id number] | 09/13/2019 12:34:00 | [facility] | | [id number] | 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 | High | | Healths | | | tracie | K/uL | 0 | | | tar | | | [#/volu | | | | | Physici | | | me] in | | | | | ans Hot | | | Blood | | | | | | | | by | | | | | [facility] | | | Automat | | | | | [place] | | | ed | | | | | | | | count | | | | | | | +---------+---------+---------+---------+---------+---------+---------+ | Erythro | 3.97 | 4.00-5. | Low | | Healths | | | cytes | M/uL | 50 | | | tar | | | [#/volu | | | | | Physici | | | me] in | | | | | ans Hot | | | Blood | | | | | | | | by | | | | | [facility] | | | Automat | | | | | [place] | | | ed | | | | | | | | count | | | | | | | +---------+---------+---------+---------+---------+---------+---------+ | Hemoglo | 12.3 | 12.0-16 | | | Healths | | | bin | g/dL | .0 | | | tar | | | [Mass/v | | | | | Physici | | | olume] | | | | | ans Hot | | | in | | | | | | | | Blood | | | | | [facility] | | | | | | | | [place] | | +---------+---------+---------+---------+---------+---------+---------+ | Hematoc | 36.7 % | 36.0-48 | | | Healths | | | rit | | .0 | | | tar | | | [Volume | | | | | Physici | | | | | | | | ans Hot | | | Fractio | | | | | | | | n] of | | | | | [facility] | | | Blood | | | | | [place] | | +---------+---------+---------+---------+---------+---------+---------+ | Erythro | 92.4 fL | 78.0-10 | | | Healths | | | cyte | | 2.0 | | | tar | | | mean | | | | | Physici | | | corpusc | | | | | ans Hot | | | ular | | | | | | | | volume | | | | | [facility] | | | [Entiti | | | | | [place] | | | c | | | | | | | | volume] | | | | | | | | by | | | | | | | | Automat | | | | | | | | ed | | | | | | | | count | | | | | | | +---------+---------+---------+---------+---------+---------+---------+ | Erythro | 31.0 pg | 25.0-35 | | | Healths | | | cyte | | .0 | | | tar | | | mean | | | | | Physici | | | corpusc | | | | | ans Hot | | | ular | | | | | | | | hemoglo | | | | | [facility] | | | bin | | | | | [facility] | | | [Entiti | | | | | | | | c mass] | | | | | | | | by | | | | | | | | Automat | | | | | | | | ed | | | | | | | | count | | | | | | | +---------+---------+---------+---------+---------+---------+---------+ | Erythro | 33.5 | 30.0-38 | | | Healths | | | cyte | g/dL | .0 | | | tar | | | mean | | | | | Physici | | | corpusc | | | | | ans Hot | | | ular | | | | | | | | hemoglo | | | | | [facility] | | | bin | | | | | [place] | | | concent | | | | | | | | ration | | | | | | | | [Mass/v | | | | | | | | olume] | | | | | | | | by | | | | | | | | Automat | | | | | | | | ed | | | | | | | | count | | | | | | | +---------+---------+---------+---------+---------+---------+---------+ | Erythro | 12.7 % | 11.5-16 | | | Healths | | | cyte | | .0 | | | tar | | | distrib | | | | | Physici | | | ution | | | | | ans Hot | | | width | | | | | | | | [Ratio] | | | | | [facility] | | | by | | | | | [place] | | | Automat | | | | | | | | ed | | | | | | | | count | | | | | | | +---------+---------+---------+---------+---------+---------+---------+ | Platele | 193 | 150-450 | | | Healths | | | ts | K/uL | | | | tar | | | [#/volu | | | | | Physici | | | me] in | | | | | ans Hot | | | Blood | | | | | | | | by | | | | | [facility] | | | Automat | | | | | [facility] | | | ed | | | | | | | | count | | | | | | | +---------+---------+---------+---------+---------+---------+---------+ | Segment | 20.7 | 1.8-7.0 | High | | Healths | | | ed | K/uL | | | | tar | | | neutrop | | | | | Physici | | | hils | | | | | ans Hot | | | [#/volu | | | | | | | | me] in | | | | | [facility] | | | Blood | | | | | [place] | | +---------+---------+---------+---------+---------+---------+---------+ | Lymphoc | 0.6 | 1.0-4.0 | Low | | Healths | | | ytes | K/uL | | | | tar | | | [#/volu | | | | | Physici | | | me] in | | | | | ans Hot | | | Blood | | | | | | | | by | | | | | [facility] | | | Automat | | | | | [facility] | | | ed | | | | | | | | count | | | | | | | +---------+---------+---------+---------+---------+---------+---------+ | Monocyt | 0.7 | 0.1-1.1 | | | Healths | | | es | K/uL | | | | tar | | | [#/volu | | | | | Physici | | | me] in | | | | | ans Hot | | | Blood | | | | | | | | by | | | | | [facility] | | | Automat | | | | | [facility] | | | ed | | | | | | | | count | | | | | | | +---------+---------+---------+---------+---------+---------+---------+ | Eosinop | 0.0 | 0.0-0.5 | | | Healths | | | hils | K/uL | | | | tar | | | [#/volu | | | | | Physici | | | me] in | | | | | ans Hot | | | Blood | | | | | | | | by | | | | | [facility] | | | Automat | | | | | [place] | | | ed | | | | | | | | count | | | | | | | +---------+---------+---------+---------+---------+---------+---------+ | Basophi | 0.1 | 0.0-0.3 | | | Healths | | | ls | K/uL | | | | tar | | | [#/volu | | | | | Physici | | | me] in | | | | | ans Hot | | | Blood | | | | | | | | | | | | | [facility] | | | | | | | | [facility] | | +---------+---------+---------+---------+---------+---------+---------+ | Band | 0.2 | <0.1 | High | | Healths | | | form | K/uL | | | | tar | | | neutrop | | | | | Physici | | | hils | | | | | ans Hot | | | [#/volu | | | | | | | | me] in | | | | | [facility] | | | Blood | | | | | [facility] | | | by | | | | | | | | Automat | | | | | | | | ed | | | | | | | | count | | | | | | | +---------+---------+---------+---------+---------+---------+---------+ | Segment | 92.6 % | | | | Healths | | | ed | | | | | tar | | | neutrop | | | | | Physici | | | hils/10 | | | | | ans Hot | | | 0 | | | | | | | | leukocy | | | | | [facility] | | | tracie in | | | | | [place] | | | Blood | | | | | | | +---------+---------+---------+---------+---------+---------+---------+ | Lymphoc | 2.8 % | | | | Healths | | | ytes/10 | | | | | tar | | | 0 | | | | | Physici | | | leukocy | | | | | ans Hot | | | tracie in | | | | | | | | Blood | | | | | [facility] | | | | | | | | [place] | | +---------+---------+---------+---------+---------+---------+---------+ | Monocyt | 3.3 % | | | | Healths | | | es/100 | | | | | tar | | | leukocy | | | | | Physici | | | tracie in | | | | | ans Hot | | | Blood | | | | | | | | | | | | | [facility] | | | | | | | | [place] | | +---------+---------+---------+---------+---------+---------+---------+ | Eosinop | 0.0 % | | | | Healths | | | hils/10 | | | | | tar | | | 0 | | | | | Physici | | | leukocy | | | | | ans Hot | | | tracie in | | | | | | | | Blood | | | | | [facility] | | | | | | | | [place] | | +---------+---------+---------+---------+---------+---------+---------+ | Basophi | 0.4 % | | | | Healths | | | ls/100 | | | | | tar | | | leukocy | | | | | Physici | | | tracie in | | | | | ans Hot | | | Blood | | | | | | | | | | | | | [facility] | | | | | | | | [place] | | +---------+---------+---------+---------+---------+---------+---------+ | Band | 0.9 % | | | | Healths | | | form | | | | | tar | | | neutrop | | | | | Physici | | | hils/10 | | | | | ans Hot | | | 0 | | | | | | | | leukocy | | | | | [facility] | | | tracie in | | | | | [facility] | | | Blood | | | | | | | | by | | | | | | | | Manual | | | | | | | | count | | | | | | | +---------+---------+---------+---------+---------+---------+---------+ + + + + | ID | Date | Data Source | + + + + | [id number] | 08/23/2019 02:26:00 | [facility] | | [id number] | 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 | [place] | + + + + +---------+---------+---------+---------+---------+---------+---------+ | Name | Value | Range | Interpr | Descrip | Data | Support | | | | | etation | tion | Source( | ing | | | | | Code | | s) | Documen | | | | | | | | t(s) | +---------+---------+---------+---------+---------+---------+---------+ | GLUCOSE | 245 | 74-106 | High | | Healths | | | | mg/dL | | | | tar | | | | | | | | Physici | | | | | | | | ans Hot | | | | | | | | | | | | | | | | [facility] | | | | | | | | [place] | | +---------+---------+---------+---------+---------+---------+---------+ | BUN | 61 | 9-20 | High | | Healths | | | | mg/dL | | | | tar | | | | | | | | Physici | | | | | | | | ans Hot | | | | | | | | | | | | | | | | [facility] | | | | | | | | [place] | | +---------+---------+---------+---------+---------+---------+---------+ | CREATIN | 4.44 | 0.52-1. | High | | Healths | | | INE | mg/dL | 04 | | | tar | | | | | | | | Physici | | | | | | | | ans Hot | | | | | | | | | | | | | | | | [facility] | | | | | | | | [place] | | +---------+---------+---------+---------+---------+---------+---------+ | EGFR | 11.96 | >59.00 | Low | | Healths | | | | mL/min/ | | | | tar | | | | 1.73m2 | | | | Physici | | | LOUIE | | | | | ans Hot | | | N | | | | | | | | | | | | | [facility] | | | | | | | | [place] | | +---------+---------+---------+---------+---------+---------+---------+ + + | Using the modified MDRD study equations, GFR calculations are not valid | | inpatients less than 18 years of age. | + + +---------+---------+--------+-----+---+---------+---+ | EGFR | 9.87 | >59.00 | Low | | Healths | | | NON-AFR | mL/min/ | | | | tar | | | ICAN | 1.73m2 | | | | Physici | | | LOUIE | | | | | ans Hot | | | N | | | | | | | | | | | | | [facility] | | | | | | | | [place] | | +---------+---------+--------+-----+---+---------+---+ + + | Using the modified MDRD study equations, GFR calculations are not valid | | inpatients less than 18 years of age. | + + +---------+---------+---------+--------+---+---------+---+ | BUN/CRE | 13.74 | 6.00-22 | Normal | | Healths | | | AT | Ratio | .00 | | | tar | | | RATIO | | | | | Physici | | | | | | | | ans Hot | | | | | | | | | | | | | | | | [place] | | | | | | | | [place] | | +---------+---------+---------+--------+---+---------+---+ | BILIRUB | 0.5 | 0.2-1.3 | Normal | | Healths | | | IN, | mg/dL | | | | tar | | | TOTAL | | | | | Physici | | | | | | | | ans Hot | | | | | | | | | | | | | | | | [place] | | | | | | | | [place] | | +---------+---------+---------+--------+---+---------+---+ | AST | 21 U/L | 14-36 | Normal | | Healths | | | (SGOT) | | | | | tar | | | | | | | | Physici | | | | | | | | ans Hot | | | | | | | | | | | | | | | | [place] | | | | | | | | [place] | | +---------+---------+---------+--------+---+---------+---+ | ALT | 13 U/L | <35 | Normal | | Healths | | | (SGPT) | | | | | tar | | | | | | | | Physici | | | | | | | | ans Hot | | | | | | | | | | | | | | | | [place] | | | | | | | | [place] | | +---------+---------+---------+--------+---+---------+---+ | ALKALIN | 147 U/L | 38-126 | High | | Healths | | | E | | | | | tar | | | PHOSPHA | | | | | Physici | | | TASE | | | | | ans Hot | | | | | | | | | | | | | | | | [facility] | | | | | | | | [place] | | +---------+---------+---------+--------+---+---------+---+ | CALCIUM | 9.0 | 8.4-10. | Normal | | Healths | | | | mg/mL | 5 | | | tar | | | | | | | | Physici | | | | | | | | ans Hot | | | | | | | | | | | | | | | | [facility] | | | | | | | | [place] | | +---------+---------+---------+--------+---+---------+---+ | SODIUM | 136 | 135-145 | Normal | | Healths | | | | mmol/L | | | | tar | | | | | | | | Physici | | | | | | | | ans Hot | | | | | | | | | | | | | | | | [place] | | | | | | | | [place] | | +---------+---------+---------+--------+---+---------+---+ | POTASSI | 3.8 | 3.5-5.1 | Normal | | Healths | | | UM | mmol/L | | | | tar | | | | | | | | Physici | | | | | | | | ans Hot | | | | | | | | | | | | | | | | [place] | | | | | | | | [place] | | +---------+---------+---------+--------+---+---------+---+ | CHLORID | 100 | 98-107 | Normal | | Healths | | | E | mmol/L | | | | tar | | | | | | | | Physici | | | | | | | | ans Hot | | | | | | | | | | | | | | | | [facility] | | | | | | | | [place] | | +---------+---------+---------+--------+---+---------+---+ | CO2 | 25 | 22-30 | Normal | | Healths | | | | mmol/L | | | | tar | | | | | | | | Physici | | | | | | | | ans Hot | | | | | | | | | | | | | | | | [place] | | | | | | | | [place] | | +---------+---------+---------+--------+---+---------+---+ | ANION | 15 | 7-16 | Normal | | Healths | | | GAP | mmol/L | | | | tar | | | | | | | | Physici | | | | | | | | ans Hot | | | | | | | | | | | | | | | | [place] | | | | | | | | [place] | | +---------+---------+---------+--------+---+---------+---+ | TOTAL | 6.4 | 6.3-8.2 | Normal | | Healths | | | PROTEIN | g/dL | | | | tar | | | | | | | | Physici | | | | | | | | ans Hot | | | | | | | | | | | | | | | | [place] | | | | | | | | [place] | | +---------+---------+---------+--------+---+---------+---+ | ALBUMIN | 3.5 | 3.5-5.0 | Normal | | Healths | | | | g/dL | | | | tar | | | | | | | | Physici | | | | | | | | ans Hot | | | | | | | | | | | | | | | | [place] | | | | | | | | [place] | | +---------+---------+---------+--------+---+---------+---+ | GLOBULI | 2.90 | | | | Healths | | | N | | | | | tar | | | | | | | | Physici | | | | | | | | ans Hot | | | | | | | | | | | | | | | | [place] | | | | | | | | [place] | | +---------+---------+---------+--------+---+---------+---+ | ALBUMIN | 1.2 | | | | Healths | | | /GLOBUL | Ratio | | | | tar | | | IN | | | | | Physici | | | | | | | | ans Hot | | | | | | | | | | | | | | | | [facility] | | | | | | | | [place] | | +---------+---------+---------+--------+---+---------+---+ + + + + | ID | Date | Data Source | + + + + | [id number] | 08/23/2019 02:26:00 | [facility] | | [id number] | 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 | [place] | + + + + +---------+---------+---------+---------+---------+---------+---------+ | Name | Value | Range | Interpr | Descrip | Data | Support | | | | | etation | tion | Source( | ing | | | | | Code | | s) | Documen | | | | | | | | t(s) | +---------+---------+---------+---------+---------+---------+---------+ | GLUCOSE | 245 | 74-106 | High | | Healths | | | | mg/dL | | | | tar | | | | | | | | Physici | | | | | | | | ans Hot | | | | | | | | | | | | | | | | [place] | | | | | | | | [place] | | +---------+---------+---------+---------+---------+---------+---------+ | BUN | 61 | 9-20 | High | | Healths | | | | mg/dL | | | | tar | | | | | | | | Physici | | | | | | | | ans Hot | | | | | | | | | | | | | | | | [place] | | | | | | | | [place] | | +---------+---------+---------+---------+---------+---------+---------+ | CREATIN | 4.44 | 0.52-1. | High | | Healths | | | INE | mg/dL | 04 | | | tar | | | | | | | | Physici | | | | | | | | ans Hot | | | | | | | | | | | | | | | | [place] | | | | | | | | [place] | | +---------+---------+---------+---------+---------+---------+---------+ | EGFR | 11.96 | >59.00 | Low | | Healths | | | | mL/min/ | | | | tar | | | | 1.73m2 | | | | Physici | | | LOUIE | | | | | ans Hot | | | N | | | | | | | | | | | | | [facility] | | | | | | | | [place] | | +---------+---------+---------+---------+---------+---------+---------+ + + | Using the modified MDRD study equations, GFR calculations are not valid | | inpatients less than 18 years of age. | + + +---------+---------+--------+-----+---+---------+---+ | EGFR | 9.87 | >59.00 | Low | | [facility] | | | NON-AFR | mL/min/ | | | | tar | | | ICAN | 1.73m2 | | | | Physici | | | [facility] | | | | | [facility] | | | N | | | | | | | | | | | | | [facility] | | | | | | | | [place] | | +---------+---------+--------+-----+---+---------+---+ + + | Using the modified MDRD study equations, GFR calculations are not valid | | inpatients less than 18 years of age. | + + +---------+---------+---------+--------+---+---------+---+ | BUN/CRE | 13.74 | 6.00-22 | Normal | | Health[facility] | | | AT | Ratio | .00 | | | tar | | | RATIO | | | | | Physici | | | | | | | | [facility] | | | | | | | | | | | | | | | | [facility] | | | | | | | | [place] | | +---------+---------+---------+--------+---+---------+---+ | BILIRUB | 0.5 | 0.2-1.3 | Normal | | Healths | | | IN, | mg/dL | | | | tar | | | TOTAL | | | | | Physici | | | | | | | | [facility] | | | | | | | | | | | | | | | | [facility] | | | | | | | | [place] | | +---------+---------+---------+--------+---+---------+---+ | AST | 21 U/L | 14-36 | Normal | | Health[facility] | | | (SGOT) | | | | | tar | | | | | | | | Physici | | | | | | | | [facility] | | | | | | | | | | | | | | | | [facility] | | | | | | | | [facility] | | +---------+---------+---------+--------+---+---------+---+ | ALT | 13 U/L | <35 | Normal | | Health[facility] | | | (SGPT) | | | | | tar | | | | | | | | Physici | | | | | | | | [facility] | | | | | | | | | | | | | | | | [facility] | | | | | | | | [place] | | +---------+---------+---------+--------+---+---------+---+ | ALKALIN | 147 U/L | 38-126 | High | | Healths | | | E | | | | | tar | | | PHOSPHA | | | | | Physici | | | TASE | | | | | [facility] | | | | | | | | | | | | | | | | [facility] | | | | | | | | [place] | | +---------+---------+---------+--------+---+---------+---+ | CALCIUM | 9.0 | 8.4-10. | Normal | | Healths | | | | mg/mL | 5 | | | tar | | | | | | | | Physici | | | | | | | | [facility] | | | | | | | | | | | | | | | | [facility] | | | | | | | | [place] | | +---------+---------+---------+--------+---+---------+---+ | SODIUM | 136 | 135-145 | Normal | | Healths | | | | mmol/L | | | | tar | | | | | | | | Physici | | | | | | | | [facility] | | | | | | | | | | | | | | | | [facility] | | | | | | | | [facility] | | +---------+---------+---------+--------+---+---------+---+ | POTASSI | 3.8 | 3.5-5.1 | Normal | | Healths | | | UM | mmol/L | | | | tar | | | | | | | | Physici | | | | | | | | ans Hot | | | | | | | | | | | | | | | | [place] | | | | | | | | [place] | | +---------+---------+---------+--------+---+---------+---+ | CHLORID | 100 | 98-107 | Normal | | Healths | | | E | mmol/L | | | | tar | | | | | | | | Physici | | | | | | | | ans Hot | | | | | | | | | | | | | | | | [place] | | | | | | | | [place] | | +---------+---------+---------+--------+---+---------+---+ | CO2 | 25 | 22-30 | Normal | | Healths | | | | mmol/L | | | | tar | | | | | | | | Physici | | | | | | | | ans Hot | | | | | | | | | | | | | | | | [place] | | | | | | | | [place] | | +---------+---------+---------+--------+---+---------+---+ | ANION | 15 | 7-16 | Normal | | Healths | | | GAP | mmol/L | | | | tar | | | | | | | | Physici | | | | | | | | ans Hot | | | | | | | | | | | | | | | | [place] | | | | | | | | [place] | | +---------+---------+---------+--------+---+---------+---+ | TOTAL | 6.4 | 6.3-8.2 | Normal | | Healths | | | PROTEIN | g/dL | | | | tar | | | | | | | | Physici | | | | | | | | ans Hot | | | | | | | | | | | | | | | | [place] | | | | | | | | [place] | | +---------+---------+---------+--------+---+---------+---+ | ALBUMIN | 3.5 | 3.5-5.0 | Normal | | Healths | | | | g/dL | | | | tar | | | | | | | | Physici | | | | | | | | ans Hot | | | | | | | | | | | | | | | | [place] | | | | | | | | [place] | | +---------+---------+---------+--------+---+---------+---+ | GLOBULI | 2.90 | | | | Healths | | | N | | | | | tar | | | | | | | | Physici | | | | | | | | ans Hot | | | | | | | | | | | | | | | | [facility] | | | | | | | | [place] | | +---------+---------+---------+--------+---+---------+---+ | ALBUMIN | 1.2 | | | | Healths | | | /GLOBUL | Ratio | | | | tar | | | IN | | | | | Physici | | | | | | | | ans Hot | | | | | | | | | | | | | | | | [place] | | | | | | | | [place] | | +---------+---------+---------+--------+---+---------+---+ + + + + | ID | Date | Data Source | + + + + | [id number] | 08/23/2019 02:26:00 | [facility] | | [id number] | 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 | [place] | + + + + +---------+-------+---------+---------+---------+---------+---------+ | Name | Value | Range | Interpr | Descrip | Data | Support | | | | | etation | tion | Source( | ing | | | | | Code | | s) | Documen | | | | | | | | t(s) | +---------+-------+---------+---------+---------+---------+---------+ | Hemoglo | 8.6 % | 4.0-6.0 | High | | Healths | | | bin | | | | | tar | | | A1c/Hem | | | | | Physici | | | oglobin | | | | | ans Hot | | | .total | | | | | | | | in | | | | | [place] | | | Blood | | | | | [place] | | +---------+-------+---------+---------+---------+---------+---------+ + + + + | ID | Date | Data Source | + + + + | [id number] | 08/23/2019 02:26:00 | [facility] | | [id number] | 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 | Normal | | Healths | | | BLOOD | K/uL | 0 | | | tar | | | CELL | | | | | Physici | | | | | | | | ans Hot | | | | | | | | | | | | | | | | [place] | | | | | | | | [place] | | +---------+---------+---------+---------+---------+---------+---------+ | RED | 3.84 | 4.00-5. | Low | | Healths | | | BLOOD | M/uL | 50 | | | tar | | | CELL | | | | | Physici | | | | | | | | ans Hot | | | | | | | | | | | | | | | | [place] | | | | | | | | [place] | | +---------+---------+---------+---------+---------+---------+---------+ | HEMOGLO | 11.6 | 12.0-16 | Low | | Healths | | | BIN | g/dL | .0 | | | tar | | | | | | | | Physici | | | | | | | | ans Hot | | | | | | | | | | | | | | | | [place] | | | | | | | | [place] | | +---------+---------+---------+---------+---------+---------+---------+ | HEMATOC | 36 % | 36-48 | Normal | | Healths | | | RIT | | | | | tar | | | | | | | | Physici | | | | | | | | ans Hot | | | | | | | | | | | | | | | | [place] | | | | | | | | [place] | | +---------+---------+---------+---------+---------+---------+---------+ | MEAN | 94.80 | 80.00-1 | Normal | | Healths | | | CORPUSC | fL | 00.00 | | | tar | | | ULAR | | | | | Physici | | | VOLUME | | | | | ans Hot | | | | | | | | | | | | | | | | [place] | | | | | | | | [place] | | +---------+---------+---------+---------+---------+---------+---------+ | MEAN | 30.2 pg | 26.0-34 | Normal | | Healths | | | CORPUSC | | .0 | | | tar | | | ULAR | | | | | Physici | | | HEMOGLO | | | | | ans Hot | | | BIN | | | | | | | | | | | | | [place] | | | | | | | | [place] | | +---------+---------+---------+---------+---------+---------+---------+ | MEAN | 31.9 | 31.0-37 | Normal | | Healths | | | CORPUSC | g/dL | .0 | | | tar | | | ULAR | | | | | Physici | | | HEMOGLO | | | | | ans Hot | | | BIN | | | | | | | | CONCENT | | | | | [facility] | | | R[facility] | | | | | [place] | | +---------+---------+---------+---------+---------+---------+---------+ | PLATELE | 220 | 150-450 | Normal | | Healths | | | TS | K/uL | | | | tar | | | | | | | | Physici | | | | | | | | ans Hot | | | | | | | | | | | | | | | | [place] | | | | | | | | [place] | | +---------+---------+---------+---------+---------+---------+---------+ | MEAN | 10.3 fL | 7.4-10. | Normal | | Healths | | | PLATELE | | 4 | | | tar | | | T | | | | | Physici | | | VOLUME | | | | | ans Hot | | | | | | | | | | | | | | | | [place] | | | | | | | | [place] | | +---------+---------+---------+---------+---------+---------+---------+ | NEUTROP | 78.7 % | 42.0-75 | High | | Healths | | | HIL, | | .0 | | | tar | | | PERCENT | | | | | Physici | | | AGE | | | | | ans Hot | | | | | | | | | | | | | | | | [place] | | | | | | | | [place] | | +---------+---------+---------+---------+---------+---------+---------+ | LYMPHOC | 14.2 % | 10.0-58 | Normal | | Healths | | | YTE, | | .0 | | | tar | | | PERCENT | | | | | Physici | | | AGE | | | | | ans Hot | | | | | | | | | | | | | | | | [place] | | | | | | | | [place] | | +---------+---------+---------+---------+---------+---------+---------+ | MIXED, | 7.1 % | 0.0-12. | Normal | | Healths | | | PERCENT | | 0 | | | tar | | | AGE | | | | | Physici | | | | | | | | ans Hot | | | | | | | | | | | | | | | | [place] | | | | | | | | [place] | | +---------+---------+---------+---------+---------+---------+---------+ | NEUTROP | 5.9 | 2.0-7.8 | Normal | | Healths | | | HIL, | K/uL | | | | tar | | | ABSOLUT | | | | | Physici | | | E | | | | | ans Hot | | | | | | | | | | | | | | | | [place] | | | | | | | | [place] | | +---------+---------+---------+---------+---------+---------+---------+ | LYMPHOC | 1.1 | 0.6-4.1 | Normal | | Healths | | | YTE, | K/uL | | | | tar | | | ABSOLUT | | | | | Physici | | | E | | | | | ans Hot | | | | | | | | | | | | | | | | [place] | | | | | | | | [place] | | +---------+---------+---------+---------+---------+---------+---------+ | MIXED, | 0.5 | 0.3-0.8 | Normal | | Healths | | | ABSOLUT | K/uL | | | | tar | | | E | | | | | Physici | | | | | | | | ans Hot | | | | | | | | | | | | | | | | [place] | | | | | | | | [place] | | +---------+---------+---------+---------+---------+---------+---------+ | RDW-CV | 14.70 | 11.50-1 | High | | Healths | | | | fL | 4.50 | | | tar | | | | | | | | Physici | | | | | | | | ans Hot | | | | | | | | | | | | | | | | [place] | | | | | | | | [place] | | +---------+---------+---------+---------+---------+---------+---------+ | RED | 52.6 % | 39.1-51 | High | | Healths | | | CELL | | .8 | | | tar | | | DISTRIB | | | | | Physici | | | UTION | | | | | ans Hot | | | WIDTH | | | | | | | | | | | | | [facility] | | | | | | | | [place] | | +---------+---------+---------+---------+---------+---------+---------+ + + + + | ID | Date | Data Source | + + + + | [id number] | 08/23/2019 02:26:00 | [facility] | | 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 | [place] | + + + + +---------+-------+---------+---------+---------+---------+---------+ | Name | Value | Range | Interpr | Descrip | Data | Support | | | | | etation | tion | Source( | ing | | | | | Code | | s) | Documen | | | | | | | | t(s) | +---------+-------+---------+---------+---------+---------+---------+ | Hemoglo | 8.6 % | 4.0-6.0 | High | | Healths | | | bin | | | | | tar | | | A1c/Hem | | | | | Physici | | | oglobin | | | | | ans Hot | | | .total | | | | | | | | in | | | | | [facility] | | | Blood | | | | | [place] | | +---------+-------+---------+---------+---------+---------+---------+ + + + + | ID | Date | Data Source | + + + + | [id number] | 08/23/2019 02:26:00 | [facility] | | [id number] | 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 | Normal | | Healths | | | BLOOD | K/uL | 0 | | | tar | | | CELL | | | | | Physici | | | | | | | | ans Hot | | | | | | | | | | | | | | | | [place] | | | | | | | | [place] | | +---------+---------+---------+---------+---------+---------+---------+ | RED | 3.84 | 4.00-5. | Low | | Healths | | | BLOOD | M/uL | 50 | | | tar | | | CELL | | | | | Physici | | | | | | | | ans Hot | | | | | | | | | | | | | | | | [place] | | | | | | | | [place] | | +---------+---------+---------+---------+---------+---------+---------+ | HEMOGLO | 11.6 | 12.0-16 | Low | | Healths | | | BIN | g/dL | .0 | | | tar | | | | | | | | Physici | | | | | | | | ans Hot | | | | | | | | | | | | | | | | [place] | | | | | | | | [place] | | +---------+---------+---------+---------+---------+---------+---------+ | HEMATOC | 36 % | 36-48 | Normal | | Healths | | | RIT | | | | | tar | | | | | | | | Physici | | | | | | | | ans Hot | | | | | | | | | | | | | | | | [place] | | | | | | | | [place] | | +---------+---------+---------+---------+---------+---------+---------+ | MEAN | 94.80 | 80.00-1 | Normal | | Healths | | | CORPUSC | fL | 00.00 | | | tar | | | ULAR | | | | | Physici | | | VOLUME | | | | | ans Hot | | | | | | | | | | | | | | | | [place] | | | | | | | | [place] | | +---------+---------+---------+---------+---------+---------+---------+ | MEAN | 30.2 pg | 26.0-34 | Normal | | Healths | | | CORPUSC | | .0 | | | tar | | | ULAR | | | | | Physici | | | HEMOGLO | | | | | ans Hot | | | BIN | | | | | | | | | | | | | [place] | | | | | | | | [place] | | +---------+---------+---------+---------+---------+---------+---------+ | MEAN | 31.9 | 31.0-37 | Normal | | Healths | | | CORPUSC | g/dL | .0 | | | tar | | | ULAR | | | | | Physici | | | HEMOGLO | | | | | ans Hot | | | BIN | | | | | | | | CONCENT | | | | | [facility] | | | [facility] | | | | | [place] | | +---------+---------+---------+---------+---------+---------+---------+ | PLATELE | 220 | 150-450 | Normal | | Healths | | | TS | K/uL | | | | tar | | | | | | | | Physici | | | | | | | | ans Hot | | | | | | | | | | | | | | | | [place] | | | | | | | | [place] | | +---------+---------+---------+---------+---------+---------+---------+ | MEAN | 10.3 fL | 7.4-10. | Normal | | Healths | | | PLATELE | | 4 | | | tar | | | T | | | | | Physici | | | VOLUME | | | | | ans Hot | | | | | | | | | | | | | | | | [place] | | | | | | | | [place] | | +---------+---------+---------+---------+---------+---------+---------+ | NEUTROP | 78.7 % | 42.0-75 | High | | Healths | | | HIL, | | .0 | | | tar | | | PERCENT | | | | | Physici | | | AGE | | | | | ans Hot | | | | | | | | | | | | | | | | [place] | | | | | | | | [place] | | +---------+---------+---------+---------+---------+---------+---------+ | LYMPHOC | 14.2 % | 10.0-58 | Normal | | Healths | | | YTE, | | .0 | | | tar | | | PERCENT | | | | | Physici | | | AGE | | | | | ans Hot | | | | | | | | | | | | | | | | [place] | | | | | | | | [place] | | +---------+---------+---------+---------+---------+---------+---------+ | MIXED, | 7.1 % | 0.0-12. | Normal | | Healths | | | PERCENT | | 0 | | | tar | | | AGE | | | | | Physici | | | | | | | | ans Hot | | | | | | | | | | | | | | | | [place] | | | | | | | | [place] | | +---------+---------+---------+---------+---------+---------+---------+ | NEUTROP | 5.9 | 2.0-7.8 | Normal | | Healths | | | HIL, | K/uL | | | | tar | | | ABSOLUT | | | | | Physici | | | E | | | | | ans Hot | | | | | | | | | | | | | | | | [place] | | | | | | | | [place] | | +---------+---------+---------+---------+---------+---------+---------+ | LYMPHOC | 1.1 | 0.6-4.1 | Normal | | Healths | | | YTE, | K/uL | | | | tar | | | ABSOLUT | | | | | Physici | | | E | | | | | ans Hot | | | | | | | | | | | | | | | | [place] | | | | | | | | [place] | | +---------+---------+---------+---------+---------+---------+---------+ | MIXED, | 0.5 | 0.3-0.8 | Normal | | Healths | | | ABSOLUT | K/uL | | | | tar | | | E | | | | | Physici | | | | | | | | ans Hot | | | | | | | | | | | | | | | | [place] | | | | | | | | [place] | | +---------+---------+---------+---------+---------+---------+---------+ | RDW-CV | 14.70 | 11.50-1 | High | | Healths | | | | fL | 4.50 | | | tar | | | | | | | | Physici | | | | | | | | ans Hot | | | | | | | | | | | | | | | | [place] | | | | | | | | [place] | | +---------+---------+---------+---------+---------+---------+---------+ | RED | 52.6 % | 39.1-51 | High | | Healths | | | CELL | | .8 | | | tar | | | DISTRIB | | | | | Physici | | | UTION | | | | | ans Hot | | | WIDTH | | | | | | | | | | | | | [place] | | | | | | | | [place] | | +---------+---------+---------+---------+---------+---------+---------+ + + + + | ID | Date | Data Source | + + + + | [id number] | 08/12/2019 01:41:00 | [facility] | | 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 | [place] | + + + + +---------+---------+--------+---------+---------+---------+---------+ | Name | Value | Range | Interpr | Descrip | Data | Support | | | | | etation | tion | Source( | ing | | | | | Code | | s) | Documen | | | | | | | | t(s) | +---------+---------+--------+---------+---------+---------+---------+ | NT-PROB | 47845.0 | <125.0 | Critica | | Healths | | | SHINGLER | pg/mL | | l High | | tar | | | | | | | | Physici | | | | | | | | ans Hot | | | | | | | | | | | | | | | | [place] | | | | | | | | [place] | | +---------+---------+--------+---------+---------+---------+---------+ + + + + | ID | Date | Data Source | + + + + | [id number] | 08/12/2019 01:41:00 | [facility] | | 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 | 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 | [place] | + + + + +---------+---------+--------+---------+---------+---------+---------+ | Name | Value | Range | Interpr | Descrip | Data | Support | | | | | etation | tion | Source( | ing | | | | | Code | | s) | Documen | | | | | | | | t(s) | +---------+---------+--------+---------+---------+---------+---------+ | NT-PROB | 15273.0 | <125.0 | Critica | | Healths | | | SHINGLER | pg/mL | | l High | | tar | | | | | | | | Physici | | | | | | | | ans Hot | | | | | | | | | | | | | | | | [place] | | | | | | | | [place] | | +---------+---------+--------+---------+---------+---------+---------+ + + + + | ID | Date | Data Source | + + + + | [id number] | 04/12/2019 11:53:00 | [facility] | | [id number] | AM CDT | [place] | + + + + +--------+---------+--------+---------+---------+---------+---------+ | Name | Value | Range | Interpr | Descrip | Data | Support | | | | | etation | tion | Source( | ing | | | | | Code | | s) | Documen | | | | | | | | t(s) | +--------+---------+--------+---------+---------+---------+---------+ | LIPASE | 130 U/L | 23-300 | Normal | | Healths | | | | | | | | tar | | | | | | | | Physici | | | | | | | | ans Hot | | | | | | | | | | | | | | | | [place] | | | | | | | | [place] | | +--------+---------+--------+---------+---------+---------+---------+ + + + + | ID | Date | Data Source | + + + + | [id number] | 04/12/2019 11:53:00 | [facility] | | [id number] | AM CDT | [place] | + + + + +---------+---------+---------+---------+---------+---------+---------+ | Name | Value | Range | Interpr | Descrip | Data | Support | | | | | etation | tion | Source( | ing | | | | | Code | | s) | Documen | | | | | | | | t(s) | +---------+---------+---------+---------+---------+---------+---------+ | GLUCOSE | 205 | 74-106 | High | | Healths | | | | mg/dL | | | | tar | | | | | | | | Physici | | | | | | | | ans Hot | | | | | | | | | | | | | | | | [place] | | | | | | | | [place] | | +---------+---------+---------+---------+---------+---------+---------+ | BUN | 59 | 9-20 | High | | Healths | | | | mg/dL | | | | tar | | | | | | | | Physici | | | | | | | | ans Hot | | | | | | | | | | | | | | | | [place] | | | | | | | | [place] | | +---------+---------+---------+---------+---------+---------+---------+ | CREATIN | 5.34 | 0.52-1. | High | | Healths | | | INE | mg/dL | 04 | | | tar | | | | | | | | Physici | | | | | | | | ans Hot | | | | | | | | | | | | | | | | [place] | | | | | | | | [place] | | +---------+---------+---------+---------+---------+---------+---------+ | EGFR | 9.67 | >59.00 | Low | | Healths | | | | mL/min/ | | | | tar | | | | 1.73m2 | | | | Physici | | | LOUIE | | | | | ans Hot | | | N | | | | | | | | | | | | | [facility] | | | | | | | | [place] | | +---------+---------+---------+---------+---------+---------+---------+ + + | Using the modified MDRD study equations, GFR calculations are not valid | | inpatients less than 18 years of age. | + + +---------+---------+--------+-----+---+---------+---+ | EGFR | 7.98 | >59.00 | Low | | Healths | | | NON-AFR | mL/min/ | | | | tar | | | ICAN | 1.73m2 | | | | Physici | | | LOUIE | | | | | ans Hot | | | N | | | | | | | | | | | | | [place] | | | | | | | | [place] | | +---------+---------+--------+-----+---+---------+---+ + + | Using the modified MDRD study equations, GFR calculations are not valid | | inpatients less than 18 years of age. | + + +---------+---------+---------+--------+---+---------+---+ | BUN/CRE | 11.05 | 6.00-22 | Normal | | Healths | | | AT | Ratio | .00 | | | tar | | | RATIO | | | | | Physici | | | | | | | | ans Hot | | | | | | | | | | | | | | | | [place] | | | | | | | | [place] | | +---------+---------+---------+--------+---+---------+---+ | BILIRUB | 0.4 | 0.2-1.3 | Normal | | Healths | | | IN, | mg/dL | | | | tar | | | TOTAL | | | | | Physici | | | | | | | | ans Hot | | | | | | | | | | | | | | | | [place] | | | | | | | | [place] | | +---------+---------+---------+--------+---+---------+---+ | AST | 18 U/L | 14-36 | Normal | | Healths | | | (SGOT) | | | | | tar | | | | | | | | Physici | | | | | | | | ans Hot | | | | | | | | | | | | | | | | [place] | | | | | | | | [place] | | +---------+---------+---------+--------+---+---------+---+ | ALT | 13 U/L | <35 | Normal | | Healths | | | (SGPT) | | | | | tar | | | | | | | | Physici | | | | | | | | ans Hot | | | | | | | | | | | | | | | | [place] | | | | | | | | [place] | | +---------+---------+---------+--------+---+---------+---+ | ALKALIN | 127 U/L | 38-126 | High | | Healths | | | E | | | | | tar | | | PHOSPHA | | | | | Physici | | | TASE | | | | | ans Hot | | | | | | | | | | | | | | | | [place] | | | | | | | | [place] | | +---------+---------+---------+--------+---+---------+---+ | CALCIUM | 11.2 | 8.4-10. | High | | Healths | | | | mg/mL | 2 | | | tar | | | | | | | | Physici | | | | | | | | ans Hot | | | | | | | | | | | | | | | | [place] | | | | | | | | [place] | | +---------+---------+---------+--------+---+---------+---+ | SODIUM | 136 | 137-145 | Low | | Healths | | | | mmol/L | | | | tar | | | | | | | | Physici | | | | | | | | ans Hot | | | | | | | | | | | | | | | | [place] | | | | | | | | [place] | | +---------+---------+---------+--------+---+---------+---+ | POTASSI | 4.5 | 3.5-5.1 | Normal | | Healths | | | UM | mmol/L | | | | tar | | | | | | | | Physici | | | | | | | | ans Hot | | | | | | | | | | | | | | | | [place] | | | | | | | | [place] | | +---------+---------+---------+--------+---+---------+---+ | CHLORID | 95 | 98-107 | Low | | Healths | | | E | mmol/L | | | | tar | | | | | | | | Physici | | | | | | | | ans Hot | | | | | | | | | | | | | | | | [place] | | | | | | | | [place] | | +---------+---------+---------+--------+---+---------+---+ | CO2 | 29 | 22-30 | Normal | | Healths | | | | mmol/L | | | | tar | | | | | | | | Physici | | | | | | | | ans Hot | | | | | | | | | | | | | | | | [place] | | | | | | | | [place] | | +---------+---------+---------+--------+---+---------+---+ | ANION | 17 | 7-16 | High | | Healths | | | GAP | mmol/L | | | | tar | | | | | | | | Physici | | | | | | | | ans Hot | | | | | | | | | | | | | | | | [place] | | | | | | | | [place] | | +---------+---------+---------+--------+---+---------+---+ | TOTAL | 6.5 | 6.3-8.2 | Normal | | Healths | | | PROTEIN | g/dL | | | | tar | | | | | | | | Physici | | | | | | | | ans Hot | | | | | | | | | | | | | | | | [place] | | | | | | | | [place] | | +---------+---------+---------+--------+---+---------+---+ | ALBUMIN | 3.8 | 3.5-5.0 | Normal | | Healths | | | | g/dL | | | | tar | | | | | | | | Physici | | | | | | | | ans Hot | | | | | | | | | | | | | | | | [place] | | | | | | | | [place] | | +---------+---------+---------+--------+---+---------+---+ | GLOBULI | 2.70 | | | | Healths | | | N | | | | | tar | | | | | | | | Physici | | | | | | | | ans Hot | | | | | | | | | | | | | | | | [place] | | | | | | | | [place] | | +---------+---------+---------+--------+---+---------+---+ | ALBUMIN | 1.4 | | | | Healths | | | /GLOBUL | Ratio | | | | tar | | | IN | | | | | Physici | | | | | | | | [facility] | | | | | | | | | | | | | | | | [facility] | | | | | | | | [place] | | +---------+---------+---------+--------+---+---------+---+ + + + + | ID | Date | Data Source | + + + + | [id number] | 04/12/2019 11:53:00 | [facility] | | [id number] | AM CDT | [place] [facility] | + + + + +---------+---------+--------+---------+---------+---------+---------+ | Name | Value | Range | Interpr | Descrip | Data | Support | | | | | etation | tion | Source( | ing | | | | | Code | | s) | Documen | | | | | | | | t(s) | +---------+---------+--------+---------+---------+---------+---------+ | AMYLASE | <51 U/L | 30-110 | Normal | | Healths | | | | | | | | tar | | | | | | | | Physici | | | | | | | | [facility] | | | | | | | | | | | | | | | | [facility] | | | | | | | | [place] | | +---------+---------+--------+---------+---------+---------+---------+ + + + + | ID | Date | Data Source | + + + + | [id number] | 04/12/2019 11:53:00 | [facility] | | [id number] | AM CDT | [place] [facility] | + + + + +---------+---------+---------+---------+---------+---------+---------+ | Name | Value | Range | Interpr | Descrip | Data | Support | | | | | etation | tion | Source( | ing | | | | | Code | | s) | Documen | | | | | | | | t(s) | +---------+---------+---------+---------+---------+---------+---------+ | WHITE | 10.0 | 4.0-11. | Normal | | Healths | | | BLOOD | K/uL | 0 | | | tar | | | CELL | | | | | Physici | | | | | | | | [facility] | | | | | | | | | | | | | | | | [facility] | | | | | | | | [place] | | +---------+---------+---------+---------+---------+---------+---------+ | RED | 2.96 | 4.00-5. | Low | | Healths | | | BLOOD | M/uL | 50 | | | tar | | | CELL | | | | | Physici | | | | | | | | [facility] | | | | | | | | | | | | | | | | [facility] | | | | | | | | [facility] | | +---------+---------+---------+---------+---------+---------+---------+ | HEMOGLO | 9.3 | 12.0-16 | Low | | Healths | | | BIN | g/dL | .0 | | | tar | | | | | | | | Physici | | | | | | | | [facility] | | | | | | | | | | | | | | | | [facility] | | | | | | | | [facility] | | +---------+---------+---------+---------+---------+---------+---------+ | HEMATOC | 28 % | 36-48 | Low | | Healths | | | RIT | | | | | tar | | | | | | | | Physici | | | | | | | | [facility] | | | | | | | | | | | | | | | | [facility] | | | | | | | | [facility] | | +---------+---------+---------+---------+---------+---------+---------+ | MEAN | 94.90 | 80.00-1 | Normal | | Healths | | | CORPUSC | fL | 00.00 | | | tar | | | ULAR | | | | | Physici | | | VOLUME | | | | | ans Hot | | | | | | | | | | | | | | | | [facility] | | | | | | | | [facility] | | +---------+---------+---------+---------+---------+---------+---------+ | MEAN | 31.4 pg | 26.0-34 | Normal | | Healths | | | CORPUSC | | .0 | | | tar | | | ULAR | | | | | Physici | | | HEMOGLO | | | | | ans Hot | | | BIN | | | | | | | | | | | | | [facility] | | | | | | | | [facility] | | +---------+---------+---------+---------+---------+---------+---------+ | MEAN | 33.1 | 31.0-37 | Normal | | Healths | | | CORPUSC | g/dL | .0 | | | tar | | | ULAR | | | | | Physici | | | HEMOGLO | | | | | ans Hot | | | BIN | | | | | | | | CONCENT | | | | | [facility] | | | RATION | | | | | [facility] | | +---------+---------+---------+---------+---------+---------+---------+ | RED | 51.7 % | 39.1-51 | Normal | | Healths | | | CELL | | .8 | | | tar | | | DISTRIB | | | | | Physici | | | UTION | | | | | ans Hot | | | WIDTH | | | | | | | | | | | | | [facility] | | | | | | | | [place] | | +---------+---------+---------+---------+---------+---------+---------+ | PLATELE | 221 | 150-450 | Normal | | Healths | | | TS | K/uL | | | | tar | | | | | | | | Physici | | | | | | | | ans Hot | | | | | | | | | | | | | | | | [facility] | | | | | | | | [place] | | +---------+---------+---------+---------+---------+---------+---------+ | MEAN | 9.3 fL | 7.4-10. | Normal | | Healths | | | PLATELE | | 4 | | | tar | | | T | | | | | Physici | | | VOLUME | | | | | ans Hot | | | | | | | | | | | | | | | | [facility] | | | | | | | | [place] | | +---------+---------+---------+---------+---------+---------+---------+ | NEUTROP | 74.9 % | 42.0-75 | Normal | | Healths | | | HIL, | | .0 | | | tar | | | PERCENT | | | | | Physici | | | AGE | | | | | ans Hot | | | | | | | | | | | | | | | | [facility] | | | | | | | | [place] | | +---------+---------+---------+---------+---------+---------+---------+ | LYMPHOC | 18.9 % | 10.0-58 | Normal | | Healths | | | YTE, | | .0 | | | tar | | | PERCENT | | | | | Physici | | | AGE | | | | | ans Hot | | | | | | | | | | | | | | | | [facility] | | | | | | | | [facility] | | +---------+---------+---------+---------+---------+---------+---------+ | MIXED, | 6.2 % | 0.0-12. | Normal | | Healths | | | PERCENT | | 0 | | | tar | | | AGE | | | | | Physici | | | | | | | | ans Hot | | | | | | | | | | | | | | | | [place] | | | | | | | | [place] | | +---------+---------+---------+---------+---------+---------+---------+ | NEUTROP | 7.5 | 2.0-7.8 | Normal | | Healths | | | HIL, | K/uL | | | | tar | | | ABSOLUT | | | | | Physici | | | E | | | | | ans Hot | | | | | | | | | | | | | | | | [facility] | | | | | | | | [facility] | | +---------+---------+---------+---------+---------+---------+---------+ | LYMPHOC | 1.9 | 0.6-4.1 | Normal | | Healths | | | YTE, | K/uL | | | | tar | | | ABSOLUT | | | | | Physici | | | E | | | | | ans Hot | | | | | | | | | | | | | | | | [facility] | | | | | | | | [facility] | | +---------+---------+---------+---------+---------+---------+---------+ | MIXED, | 0.6 | 0.3-0.8 | Normal | | Healths | | | ABSOLUT | K/uL | | | | tar | | | E | | | | | Physici | | | | | | | | ans Hot | | | | | | | | | | | | | | | | [place] | | | | | | | | [place] | | +---------+---------+---------+---------+---------+---------+---------+ | RDW-CV | 14.50 | 11.50-1 | Normal | | Healths | | | | fL | 4.50 | | | tar | | | | | | | | Physici | | | | | | | | ans Hot | | | | | | | | | | | | | | | | [facility] | | | | | | | | [facility] | | +---------+---------+---------+---------+---------+---------+---------+ + + + + | ID | Date | Data Source | + + + + | [id number] | 04/12/2019 11:53:00 | [facility] | | [id number] | AM CDT | [place] | + + + + +--------+---------+--------+---------+---------+---------+---------+ | Name | Value | Range | Interpr | Descrip | Data | Support | | | | | etation | tion | Source( | ing | | | | | Code | | s) | Documen | | | | | | | | t(s) | +--------+---------+--------+---------+---------+---------+---------+ | LIPASE | 130 U/L | 23-300 | Normal | | Healths | | | | | | | | tar | | | | | | | | Physici | | | | | | | | ans Hot | | | | | | | | | | | | | | | | [place] | | | | | | | | [place] | | +--------+---------+--------+---------+---------+---------+---------+ + + + + | ID | Date | Data Source | + + + + | [id number] | 04/12/2019 11:53:00 | [facility] | | [id number] | AM CDT | [place] | + + + + +---------+---------+---------+---------+---------+---------+---------+ | Name | Value | Range | Interpr | Descrip | Data | Support | | | | | etation | tion | Source( | ing | | | | | Code | | s) | Documen | | | | | | | | t(s) | +---------+---------+---------+---------+---------+---------+---------+ | GLUCOSE | 205 | 74-106 | High | | Healths | | | | mg/dL | | | | tar | | | | | | | | Physici | | | | | | | | ans Hot | | | | | | | | | | | | | | | | [place] | | | | | | | | [place] | | +---------+---------+---------+---------+---------+---------+---------+ | BUN | 59 | 9-20 | High | | Healths | | | | mg/dL | | | | tar | | | | | | | | Physici | | | | | | | | ans Hot | | | | | | | | | | | | | | | | [place] | | | | | | | | [place] | | +---------+---------+---------+---------+---------+---------+---------+ | CREATIN | 5.34 | 0.52-1. | High | | Healths | | | INE | mg/dL | 04 | | | tar | | | | | | | | Physici | | | | | | | | ans Hot | | | | | | | | | | | | | | | | [facility] | | | | | | | | [place] | | +---------+---------+---------+---------+---------+---------+---------+ | EGFR | 9.67 | >59.00 | Low | | Healths | | | | mL/min/ | | | | tar | | | | 1.73m2 | | | | Physici | | | LOUIE | | | | | ans Hot | | | N | | | | | | | | | | | | | [facility] | | | | | | | | [place] | | +---------+---------+---------+---------+---------+---------+---------+ + + | Using the modified MDRD study equations, GFR calculations are not valid | | inpatients less than 18 years of age. | + + +---------+---------+--------+-----+---+---------+---+ | EGFR | 7.98 | >59.00 | Low | | Healths | | | NON-AFR | mL/min/ | | | | tar | | | ICAN | 1.73m2 | | | | Physici | | | LOUIE | | | | | ans Hot | | | N | | | | | | | | | | | | | [facility] | | | | | | | | [place] | | +---------+---------+--------+-----+---+---------+---+ + + | Using the modified MDRD study equations, GFR calculations are not valid | | inpatients less than 18 years of age. | + + +---------+---------+---------+--------+---+---------+---+ | BUN/CRE | 11.05 | 6.00-22 | Normal | | Healths | | | AT | Ratio | .00 | | | tar | | | RATIO | | | | | Physici | | | | | | | | ans Hot | | | | | | | | | | | | | | | | [place] | | | | | | | | [place] | | +---------+---------+---------+--------+---+---------+---+ | BILIRUB | 0.4 | 0.2-1.3 | Normal | | Healths | | | IN, | mg/dL | | | | tar | | | TOTAL | | | | | Physici | | | | | | | | ans Hot | | | | | | | | | | | | | | | | [place] | | | | | | | | [place] | | +---------+---------+---------+--------+---+---------+---+ | AST | 18 U/L | 14-36 | Normal | | Healths | | | (SGOT) | | | | | tar | | | | | | | | Physici | | | | | | | | ans Hot | | | | | | | | | | | | | | | | [place] | | | | | | | | [place] | | +---------+---------+---------+--------+---+---------+---+ | ALT | 13 U/L | <35 | Normal | | Healths | | | (SGPT) | | | | | tar | | | | | | | | Physici | | | | | | | | ans Hot | | | | | | | | | | | | | | | | [facility] | | | | | | | | [place] | | +---------+---------+---------+--------+---+---------+---+ | ALKALIN | 127 U/L | 38-126 | High | | Healths | | | E | | | | | tar | | | PHOSPHA | | | | | Physici | | | TASE | | | | | ans Hot | | | | | | | | | | | | | | | | [facility] | | | | | | | | [facility] | | +---------+---------+---------+--------+---+---------+---+ | CALCIUM | 11.2 | 8.4-10. | High | | Healths | | | | mg/mL | 2 | | | tar | | | | | | | | Physici | | | | | | | | ans Hot | | | | | | | | | | | | | | | | [facility] | | | | | | | | [facility] | | +---------+---------+---------+--------+---+---------+---+ | SODIUM | 136 | 137-145 | Low | | Healths | | | | mmol/L | | | | tar | | | | | | | | Physici | | | | | | | | ans Hot | | | | | | | | | | | | | | | | [facility] | | | | | | | | [place] | | +---------+---------+---------+--------+---+---------+---+ | POTASSI | 4.5 | 3.5-5.1 | Normal | | Healths | | | UM | mmol/L | | | | tar | | | | | | | | Physici | | | | | | | | ans Hot | | | | | | | | | | | | | | | | [facility] | | | | | | | | [facility] | | +---------+---------+---------+--------+---+---------+---+ | CHLORID | 95 | 98-107 | Low | | Healths | | | E | mmol/L | | | | tar | | | | | | | | Physici | | | | | | | | ans Hot | | | | | | | | | | | | | | | | [facility] | | | | | | | | [place] | | +---------+---------+---------+--------+---+---------+---+ | CO2 | 29 | 22-30 | Normal | | Healths | | | | mmol/L | | | | tar | | | | | | | | Physici | | | | | | | | ans Hot | | | | | | | | | | | | | | | | [facility] | | | | | | | | [facility] | | +---------+---------+---------+--------+---+---------+---+ | ANION | 17 | 7-16 | High | | Healths | | | GAP | mmol/L | | | | tar | | | | | | | | Physici | | | | | | | | ans Hot | | | | | | | | | | | | | | | | [facility] | | | | | | | | [place] | | +---------+---------+---------+--------+---+---------+---+ | TOTAL | 6.5 | 6.3-8.2 | Normal | | Healths | | | PROTEIN | g/dL | | | | tar | | | | | | | | Physici | | | | | | | | ans Hot | | | | | | | | | | | | | | | | [facility] | | | | | | | | [place] | | +---------+---------+---------+--------+---+---------+---+ | ALBUMIN | 3.8 | 3.5-5.0 | Normal | | Healths | | | | g/dL | | | | tar | | | | | | | | Physici | | | | | | | | ans Hot | | | | | | | | | | | | | | | | [facility] | | | | | | | | [facility] | | +---------+---------+---------+--------+---+---------+---+ | GLOBULI | 2.70 | | | | Healths | | | N | | | | | tar | | | | | | | | Physici | | | | | | | | ans Hot | | | | | | | | | | | | | | | | [facility] | | | | | | | | [place] | | +---------+---------+---------+--------+---+---------+---+ | ALBUMIN | 1.4 | | | | Healths | | | /GLOBUL | Ratio | | | | tar | | | IN | | | | | Physici | | | | | | | | ans Hot | | | | | | | | | | | | | | | | [facility] | | | | | | | | [facility] | | +---------+---------+---------+--------+---+---------+---+ + + + + | ID | Date | Data Source | + + + + | [id number] | 04/12/2019 11:53:00 | [facility] | | [id number] | AM CDT | [place] | + + + + +---------+---------+--------+---------+---------+---------+---------+ | Name | Value | Range | Interpr | Descrip | Data | Support | | | | | etation | tion | Source( | ing | | | | | Code | | s) | Documen | | | | | | | | t(s) | +---------+---------+--------+---------+---------+---------+---------+ | AMYLASE | <51 U/L | 30-110 | Normal | | Healths | | | | | | | | tar | | | | | | | | Physici | | | | | | | | ans Hot | | | | | | | | | | | | | | | | [facility] | | | | | | | | [place] | | +---------+---------+--------+---------+---------+---------+---------+ + + + + | ID | Date | Data Source | + + + + | [id number] | 04/12/2019 11:53:00 | [facility] | | [id number] | AM CDT | [place] | + + + + +---------+---------+---------+---------+---------+---------+---------+ | Name | Value | Range | Interpr | Descrip | Data | Support | | | | | etation | tion | Source( | ing | | | | | Code | | s) | Documen | | | | | | | | t(s) | +---------+---------+---------+---------+---------+---------+---------+ | WHITE | 10.0 | 4.0-11. | Normal | | Healths | | | BLOOD | K/uL | 0 | | | tar | | | CELL | | | | | Physici | | | | | | | | ans Hot | | | | | | | | | | | | | | | | [place] | | | | | | | | [place] | | +---------+---------+---------+---------+---------+---------+---------+ | RED | 2.96 | 4.00-5. | Low | | Healths | | | BLOOD | M/uL | 50 | | | tar | | | CELL | | | | | Physici | | | | | | | | ans Hot | | | | | | | | | | | | | | | | [facility] | | | | | | | | [place] | | +---------+---------+---------+---------+---------+---------+---------+ | HEMOGLO | 9.3 | 12.0-16 | Low | | Healths | | | BIN | g/dL | .0 | | | tar | | | | | | | | Physici | | | | | | | | ans Hot | | | | | | | | | | | | | | | | [place] | | | | | | | | [place] | | +---------+---------+---------+---------+---------+---------+---------+ | HEMATOC | 28 % | 36-48 | Low | | Healths | | | RIT | | | | | tar | | | | | | | | Physici | | | | | | | | ans Hot | | | | | | | | | | | | | | | | [facility] | | | | | | | | [place] | | +---------+---------+---------+---------+---------+---------+---------+ | MEAN | 94.90 | 80.00-1 | Normal | | Healths | | | CORPUSC | fL | 00.00 | | | tar | | | ULAR | | | | | Physici | | | VOLUME | | | | | ans Hot | | | | | | | | | | | | | | | | [facility] | | | | | | | | [place] | | +---------+---------+---------+---------+---------+---------+---------+ | MEAN | 31.4 pg | 26.0-34 | Normal | | Healths | | | CORPUSC | | .0 | | | tar | | | ULAR | | | | | Physici | | | HEMOGLO | | | | | ans Hot | | | BIN | | | | | | | | | | | | | [facility] | | | | | | | | [place] | | +---------+---------+---------+---------+---------+---------+---------+ | MEAN | 33.1 | 31.0-37 | Normal | | Healths | | | CORPUSC | g/dL | .0 | | | tar | | | ULAR | | | | | Physici | | | HEMOGLO | | | | | ans Hot | | | BIN | | | | | | | | CONCENT | | | | | [facility] | | | RATION | | | | | [facility] | | +---------+---------+---------+---------+---------+---------+---------+ | RED | 51.7 % | 39.1-51 | Normal | | Healths | | | CELL | | .8 | | | tar | | | DISTRIB | | | | | Physici | | | UTION | | | | | ans Hot | | | WIDTH | | | | | | | | | | | | | [facility] | | | | | | | | [facility] | | +---------+---------+---------+---------+---------+---------+---------+ | PLATELE | 221 | 150-450 | Normal | | Healths | | | TS | K/uL | | | | tar | | | | | | | | Physici | | | | | | | | ans Hot | | | | | | | | | | | | | | | | [place] | | | | | | | | [place] | | +---------+---------+---------+---------+---------+---------+---------+ | MEAN | 9.3 fL | 7.4-10. | Normal | | Healths | | | PLATELE | | 4 | | | tar | | | T | | | | | Physici | | | VOLUME | | | | | ans Hot | | | | | | | | | | | | | | | | [facility] | | | | | | | | [place] | | +---------+---------+---------+---------+---------+---------+---------+ | NEUTROP | 74.9 % | 42.0-75 | Normal | | Healths | | | HIL, | | .0 | | | tar | | | PERCENT | | | | | Physici | | | AGE | | | | | ans Hot | | | | | | | | | | | | | | | | [facility] | | | | | | | | [facility] | | +---------+---------+---------+---------+---------+---------+---------+ | LYMPHOC | 18.9 % | 10.0-58 | Normal | | Healths | | | YTE, | | .0 | | | tar | | | PERCENT | | | | | Physici | | | AGE | | | | | ans Hot | | | | | | | | | | | | | | | | [facility] | | | | | | | | [place] | | +---------+---------+---------+---------+---------+---------+---------+ | MIXED, | 6.2 % | 0.0-12. | Normal | | Healths | | | PERCENT | | 0 | | | tar | | | AGE | | | | | Physici | | | | | | | | ans Hot | | | | | | | | | | | | | | | | [place] | | | | | | | | [place] | | +---------+---------+---------+---------+---------+---------+---------+ | NEUTROP | 7.5 | 2.0-7.8 | Normal | | Healths | | | HIL, | K/uL | | | | tar | | | ABSOLUT | | | | | Physici | | | E | | | | | ans Hot | | | | | | | | | | | | | | | | [facility] | | | | | | | | [facility] | | +---------+---------+---------+---------+---------+---------+---------+ | LYMPHOC | 1.9 | 0.6-4.1 | Normal | | Healths | | | YTE, | K/uL | | | | tar | | | ABSOLUT | | | | | Physici | | | E | | | | | ans Hot | | | | | | | | | | | | | | | | [place] | | | | | | | | [place] | | +---------+---------+---------+---------+---------+---------+---------+ | MIXED, | 0.6 | 0.3-0.8 | Normal | | Healths | | | ABSOLUT | K/uL | | | | tar | | | E | | | | | Physici | | | | | | | | ans Hot | | | | | | | | | | | | | | | | [place] | | | | | | | | [place] | | +---------+---------+---------+---------+---------+---------+---------+ | RDW-CV | 14.50 | 11.50-1 | Normal | | Healths | | | | fL | 4.50 | | | tar | | | | | | | | Physici | | | | | | | | ans Hot | | | | | | | | | | | | | | | | [place] | | | | | | | | [place] | | +---------+---------+---------+---------+---------+---------+---------+ + + + + | ID | Date | Data Source | + + + + | [id number] | 01/10/2019 05:44:00 | [facility] | | [id number] | PM CDT | [place] | + + + + +---------+---------+---------+---------+---------+---------+---------+ | Name | Value | Range | Interpr | Descrip | Data | Support | | | | | etation | tion | Source( | ing | | | | | Code | | s) | Documen | | | | | | | | t(s) | +---------+---------+---------+---------+---------+---------+---------+ | TRIGLYC | 274.00 | <149.00 | High | | Healths | | | ERIDE | mg/dL | | | | tar | | | | | | | | Physici | | | | | | | | ans Hot | | | | | | | | | | | | | | | | [place] | | | | | | | | [place] | | +---------+---------+---------+---------+---------+---------+---------+ + + | Borderline High 150-199; High 200-499; Very High >=500 | + + +---------+-------+------+--------+---+---------+---+ | CHOLEST | 152 | <199 | Normal | | Healths | | | [place] | mg/dL | | | | tar | | | | | | | | Physici | | | | | | | | ans Hot | | | | | | | | | | | | | | | | [facility] | | | | | | | | [place] | | +---------+-------+------+--------+---+---------+---+ + + | Borderline - 200-239; HHigh - >=240 | + + +---------+--------+---------+--------+---+---------+---+ | HDL | 38 | 39-61 | Low | | Healths | | | | mg/dL | | | | tar | | | | | | | | Physici | | | | | | | | ans Hot | | | | | | | | | | | | | | | | [place] | | | | | | | | [place] | | +---------+--------+---------+--------+---+---------+---+ | Cholest | 59.20 | <109.00 | Normal | | Healths | | | [place] in | mg/dL | | | | tar | | | LDL | | | | | Physici | | | [Mass/v | | | | | ans Hot | | | olume] | | | | | | | | in | | | | | [facility] | | | Serum | | | | | [place] | | | or | | | | | | | | Plasma | | | | | | | +---------+--------+---------+--------+---+---------+---+ | CHOL/HD | 4.00 | <4.90 | Normal | | Healths | | | L RISK | Ratio | | | | tar | | | RATIO | | | | | Physici | | | | | | | | ans Hot | | | | | | | | | | | | | | | | [place] | | | | | | | | [place] | | +---------+--------+---------+--------+---+---------+---+ | LDL/HDL | 1.56 | <2.33 | Normal | | Healths | | | RISK | Ratio | | | | tar | | | RATIO | | | | | Physici | | | | | | | | ans Hot | | | | | | | | | | | | | | | | [place] | | | | | | | | [place] | | +---------+--------+---------+--------+---+---------+---+ + + | Average Risk: 2.35-4.12; Moderate Risk: 4.13-5.56; High Risk >5.57 | + + + + + + | ID | Date | Data Source | + + + + | [id number] | 01/10/2019 05:44:00 | [facility] | | [id number] | PM CDT | [place] | + + + + +---------+---------+---------+---------+---------+---------+---------+ | Name | Value | Range | Interpr | Descrip | Data | Support | | | | | etation | tion | Source( | ing | | | | | Code | | s) | Documen | | | | | | | | t(s) | +---------+---------+---------+---------+---------+---------+---------+ | GLUCOSE | 386 | 74-106 | High | | Healths | | | | mg/dL | | | | tar | | | | | | | | Physici | | | | | | | | ans Hot | | | | | | | | | | | | | | | | [place] | | | | | | | | [place] | | +---------+---------+---------+---------+---------+---------+---------+ | BUN | 32 | 9-20 | High | | Healths | | | | mg/dL | | | | tar | | | | | | | | Physici | | | | | | | | ans Hot | | | | | | | | | | | | | | | | [place] | | | | | | | | [place] | | +---------+---------+---------+---------+---------+---------+---------+ | CREATIN | 1.93 | 0.52-1. | High | | Healths | | | INE | mg/dL | 04 | | | tar | | | | | | | | Physici | | | | | | | | ans Hot | | | | | | | | | | | | | | | | [place] | | | | | | | | [place] | | +---------+---------+---------+---------+---------+---------+---------+ | EGFR | 31.29 | >59.00 | Low | | Healths | | | | mL/min/ | | | | tar | | | | 1.73m2 | | | | Physici | | | LOUIE | | | | | ans Hot | | | N | | | | | | | | | | | | | [facility] | | | | | | | | [place] | | +---------+---------+---------+---------+---------+---------+---------+ + + | Using the modified MDRD study equations, GFR calculations are not valid | | inpatients less than 18 years of age. | + + +---------+---------+--------+-----+---+---------+---+ | EGFR | 25.82 | >59.00 | Low | | Healths | | | NON-AFR | mL/min/ | | | | tar | | | ICAN | 1.73m2 | | | | Physici | | | LOUIE | | | | | ans Hot | | | N | | | | | | | | | | | | | [facility] | | | | | | | | [place] | | +---------+---------+--------+-----+---+---------+---+ + + | Using the modified MDRD study equations, GFR calculations are not valid | | inpatients less than 18 years of age. | + + +---------+---------+---------+--------+---+---------+---+ | BUN/CRE | 16.58 | 6.00-22 | Normal | | Healths | | | AT | Ratio | .00 | | | tar | | | RATIO | | | | | Physici | | | | | | | | ans Hot | | | | | | | | | | | | | | | | [place] | | | | | | | | [place] | | +---------+---------+---------+--------+---+---------+---+ | BILIRUB | 0.5 | 0.2-1.3 | Normal | | Healths | | | IN, | mg/dL | | | | tar | | | TOTAL | | | | | Physici | | | | | | | | ans Hot | | | | | | | | | | | | | | | | [place] | | | | | | | | [place] | | +---------+---------+---------+--------+---+---------+---+ | AST | 22 U/L | 14-36 | Normal | | Healths | | | (SGOT) | | | | | tar | | | | | | | | Physici | | | | | | | | ans Hot | | | | | | | | | | | | | | | | [place] | | | | | | | | [place] | | +---------+---------+---------+--------+---+---------+---+ | ALT | 19 U/L | <35 | Normal | | Healths | | | (SGPT) | | | | | tar | | | | | | | | Physici | | | | | | | | ans Hot | | | | | | | | | | | | | | | | [place] | | | | | | | | [place] | | +---------+---------+---------+--------+---+---------+---+ | ALKALIN | 134 U/L | 38-126 | High | | Healths | | | E | | | | | tar | | | PHOSPHA | | | | | Physici | | | TASE | | | | | ans Hot | | | | | | | | | | | | | | | | [facility] | | | | | | | | [facility] | | +---------+---------+---------+--------+---+---------+---+ | CALCIUM | 9.0 | 8.4-10. | Normal | | Healths | | | | mg/mL | 2 | | | tar | | | | | | | | Physici | | | | | | | | ans Hot | | | | | | | | | | | | | | | | [facility] | | | | | | | | [facility] | | +---------+---------+---------+--------+---+---------+---+ | SODIUM | 135 | 137-145 | Low | | Healths | | | | mmol/L | | | | tar | | | | | | | | Physici | | | | | | | | ans Hot | | | | | | | | | | | | | | | | [facility] | | | | | | | | [facility] | | +---------+---------+---------+--------+---+---------+---+ | POTASSI | 4.8 | 3.5-5.1 | Normal | | Healths | | | UM | mmol/L | | | | tar | | | | | | | | Physici | | | | | | | | ans Hot | | | | | | | | | | | | | | | | [facility] | | | | | | | | [place] | | +---------+---------+---------+--------+---+---------+---+ | CHLORID | 97 | 98-107 | Low | | Healths | | | E | mmol/L | | | | tar | | | | | | | | Physici | | | | | | | | ans Hot | | | | | | | | | | | | | | | | [facility] | | | | | | | | [place] | | +---------+---------+---------+--------+---+---------+---+ | CO2 | 21 | 22-30 | Low | | Healths | | | | mmol/L | | | | tar | | | | | | | | Physici | | | | | | | | ans Hot | | | | | | | | | | | | | | | | [facility] | | | | | | | | [facility] | | +---------+---------+---------+--------+---+---------+---+ | ANION | 22 | 7-16 | High | | Healths | | | GAP | mmol/L | | | | tar | | | | | | | | Physici | | | | | | | | ans Hot | | | | | | | | | | | | | | | | [facility] | | | | | | | | [place] | | +---------+---------+---------+--------+---+---------+---+ | TOTAL | 6.6 | 6.3-8.2 | Normal | | Healths | | | PROTEIN | g/dL | | | | tar | | | | | | | | Physici | | | | | | | | ans Hot | | | | | | | | | | | | | | | | [facility] | | | | | | | | [place] | | +---------+---------+---------+--------+---+---------+---+ | ALBUMIN | 3.8 | 3.5-5.0 | Normal | | Healths | | | | g/dL | | | | tar | | | | | | | | Physici | | | | | | | | ans Hot | | | | | | | | | | | | | | | | [facility] | | | | | | | | [facility] | | +---------+---------+---------+--------+---+---------+---+ | GLOBULI | 2.80 | | | | Healths | | | N | | | | | tar | | | | | | | | Physici | | | | | | | | ans Hot | | | | | | | | | | | | | | | | [facility] | | | | | | | | [facility] | | +---------+---------+---------+--------+---+---------+---+ | ALBUMIN | 1.4 | | | | Healths | | | /GLOBUL | Ratio | | | | tar | | | IN | | | | | Physici | | | | | | | | ans Hot | | | | | | | | | | | | | | | | [place] | | | | | | | | [facility] | | +---------+---------+---------+--------+---+---------+---+ + + + + | ID | Date | Data Source | + + + + | [id number] | 01/10/2019 05:44:00 | [facility] | | [id number] | PM CDT | [place] | + + + + +---------+---------+---------+---------+---------+---------+---------+ | Name | Value | Range | Interpr | Descrip | Data | Support | | | | | etation | tion | Source( | ing | | | | | Code | | s) | Documen | | | | | | | | t(s) | +---------+---------+---------+---------+---------+---------+---------+ | WHITE | 11.4 | 4.0-11. | High | | Healths | | | BLOOD | K/uL | 0 | | | tar | | | CELL | | | | | Physici | | | | | | | | ans Hot | | | | | | | | | | | | | | | | [facility] | | | | | | | | [facility] | | +---------+---------+---------+---------+---------+---------+---------+ | RED | 3.68 | 4.00-5. | Low | | Healths | | | BLOOD | M/uL | 50 | | | tar | | | CELL | | | | | Physici | | | | | | | | ans Hot | | | | | | | | | | | | | | | | [facility] | | | | | | | | [place] | | +---------+---------+---------+---------+---------+---------+---------+ | HEMOGLO | 11.9 | 12.0-16 | Low | | Healths | | | BIN | g/dL | .0 | | | tar | | | | | | | | Physici | | | | | | | | ans Hot | | | | | | | | | | | | | | | | [facility] | | | | | | | | [facility] | | +---------+---------+---------+---------+---------+---------+---------+ | HEMATOC | 34 % | 36-48 | Low | | Healths | | | RIT | | | | | tar | | | | | | | | Physici | | | | | | | | ans Hot | | | | | | | | | | | | | | | | [facility] | | | | | | | | [facility] | | +---------+---------+---------+---------+---------+---------+---------+ | MEAN | 92 fL | 80-100 | Normal | | Healths | | | CORPUSC | | | | | tar | | | ULAR | | | | | Physici | | | VOLUME | | | | | ans Hot | | | | | | | | | | | | | | | | [facility] | | | | | | | | [facility] | | +---------+---------+---------+---------+---------+---------+---------+ | MEAN | 32.3 pg | 26.0-34 | Normal | | Healths | | | CORPUSC | | .0 | | | tar | | | ULAR | | | | | Physici | | | HEMOGLO | | | | | ans Hot | | | BIN | | | | | | | | | | | | | [facility] | | | | | | | | [facility] | | +---------+---------+---------+---------+---------+---------+---------+ | MEAN | 35.0 | 31.0-37 | Normal | | Healths | | | CORPUSC | g/dL | .0 | | | tar | | | ULAR | | | | | Physici | | | HEMOGLO | | | | | ans Hot | | | BIN | | | | | | | | CONCENT | | | | | [facility] | | | RATION | | | | | [place] | | +---------+---------+---------+---------+---------+---------+---------+ | RED | 46.7 % | 39.1-51 | Normal | | Healths | | | CELL | | .8 | | | tar | | | DISTRIB | | | | | Physici | | | UTION | | | | | ans Hot | | | WIDTH | | | | | | | | | | | | | [facility] | | | | | | | | [place] | | +---------+---------+---------+---------+---------+---------+---------+ | PLATELE | 240 | 150-450 | Normal | | Healths | | | TS | K/uL | | | | tar | | | | | | | | Physici | | | | | | | | ans Hot | | | | | | | | | | | | | | | | [place] | | | | | | | | [place] | | +---------+---------+---------+---------+---------+---------+---------+ | MEAN | 10.0 fL | 7.4-10. | Normal | | Healths | | | PLATELE | | 4 | | | tar | | | T | | | | | Physici | | | VOLUME | | | | | ans Hot | | | | | | | | | | | | | | | | [place] | | | | | | | | [place] | | +---------+---------+---------+---------+---------+---------+---------+ | NEUTROP | 69.7 % | 42.0-75 | Normal | | Healths | | | HIL, | | .0 | | | tar | | | PERCENT | | | | | Physici | | | AGE | | | | | ans Hot | | | | | | | | | | | | | | | | [facility] | | | | | | | | [facility] | | +---------+---------+---------+---------+---------+---------+---------+ | LYMPHOC | 23.9 % | 10.0-58 | Normal | | Healths | | | YTE, | | .0 | | | tar | | | PERCENT | | | | | Physici | | | AGE | | | | | ans Hot | | | | | | | | | | | | | | | | [place] | | | | | | | | [place] | | +---------+---------+---------+---------+---------+---------+---------+ | MIXED, | 6.4 % | 0.0-12. | Normal | | Healths | | | PERCENT | | 0 | | | tar | | | AGE | | | | | Physici | | | | | | | | ans Hot | | | | | | | | | | | | | | | | [place] | | | | | | | | [place] | | +---------+---------+---------+---------+---------+---------+---------+ | NEUTROP | 8.0 | 2.0-7.8 | High | | Healths | | | HIL, | K/uL | | | | tar | | | ABSOLUT | | | | | Physici | | | E | | | | | ans Hot | | | | | | | | | | | | | | | | [place] | | | | | | | | [facility] | | +---------+---------+---------+---------+---------+---------+---------+ | LYMPHOC | 2.7 | 0.6-4.1 | Normal | | Healths | | | YTE, | K/uL | | | | tar | | | ABSOLUT | | | | | Physici | | | E | | | | | ans Hot | | | | | | | | | | | | | | | | [place] | | | | | | | | [place] | | +---------+---------+---------+---------+---------+---------+---------+ | MIXED, | 0.7 | 0.3-0.8 | Normal | | Healths | | | ABSOLUT | K/uL | | | | tar | | | E | | | | | Physici | | | | | | | | ans Hot | | | | | | | | | | | | | | | | [place] | | | | | | | | [place] | | +---------+---------+---------+---------+---------+---------+---------+ | RDW-CV | 13.00 | 11.50-1 | Normal | | Healths | | | | fL | 4.50 | | | tar | | | | | | | | Physici | | | | | | | | ans Hot | | | | | | | | | | | | | | | | [place] | | | | | | | | [place] | | +---------+---------+---------+---------+---------+---------+---------+ + + + + | ID | Date | Data Source | + + + + | [id number] | 01/10/2019 05:44:00 | [facility] | | [id number] | PM CDT | [place] | + + + + +---------+-------+---------+---------+---------+---------+---------+ | Name | Value | Range | Interpr | Descrip | Data | Support | | | | | etation | tion | Source( | ing | | | | | Code | | s) | Documen | | | | | | | | t(s) | +---------+-------+---------+---------+---------+---------+---------+ | Hemoglo | 9.5 % | 4.0-6.0 | High | | Healths | | | bin | | | | | tar | | | A1c/Hem | | | | | Physici | | | oglobin | | | | | ans Hot | | | .total | | | | | | | | in | | | | | [place] | | | Blood | | | | | [facility] | | +---------+-------+---------+---------+---------+---------+---------+ + + + + | ID | Date | Data Source | + + + + | [id number] | 01/10/2019 05:44:00 | [facility] | | [id number] | PM CDT | [place] | + + + + +---------+---------+---------+---------+---------+---------+---------+ | Name | Value | Range | Interpr | Descrip | Data | Support | | | | | etation | tion | Source( | ing | | | | | Code | | s) | Documen | | | | | | | | t(s) | +---------+---------+---------+---------+---------+---------+---------+ | TRIGLYC | 274.00 | <149.00 | High | | Healths | | | ERIDE | mg/dL | | | | tar | | | | | | | | Physici | | | | | | | | ans Hot | | | | | | | | | | | | | | | | [place] | | | | | | | | [facility] | | +---------+---------+---------+---------+---------+---------+---------+ + + | Borderline High 150-199; High 200-499; Very High >=500 | + + +---------+-------+------+--------+---+---------+---+ | CHOLEST | 152 | <199 | Normal | | Healths | | | [place] | mg/dL | | | | tar | | | | | | | | Physici | | | | | | | | ans Hot | | | | | | | | | | | | | | | | [place] | | | | | | | | [place] | | +---------+-------+------+--------+---+---------+---+ + + | Borderline - 200-239; HHigh - >=240 | + + +---------+--------+---------+--------+---+---------+---+ | HDL | 38 | 39-61 | Low | | Healths | | | | mg/dL | | | | tar | | | | | | | | Physici | | | | | | | | ans Hot | | | | | | | | | | | | | | | | [place] | | | | | | | | [place] | | +---------+--------+---------+--------+---+---------+---+ | Cholest | 59.20 | <109.00 | Normal | | Healths | | | [place] in | mg/dL | | | | tar | | | LDL | | | | | Physici | | | [Mass/v | | | | | ans Hot | | | olume] | | | | | | | | in | | | | | [facility] | | | Serum | | | | | [facility] | | | or | | | | | | | | Plasma | | | | | | | +---------+--------+---------+--------+---+---------+---+ | CHOL/HD | 4.00 | <4.90 | Normal | | Healths | | | L RISK | Ratio | | | | tar | | | RATIO | | | | | Physici | | | | | | | | ans Hot | | | | | | | | | | | | | | | | [place] | | | | | | | | [place] | | +---------+--------+---------+--------+---+---------+---+ | LDL/HDL | 1.56 | <2.33 | Normal | | Healths | | | RISK | Ratio | | | | tar | | | RATIO | | | | | Physici | | | | | | | | ans Hot | | | | | | | | | | | | | | | | [place] | | | | | | | | [place] | | +---------+--------+---------+--------+---+---------+---+ + + | Average Risk: 2.35-4.12; Moderate Risk: 4.13-5.56; High Risk >5.57 | + + + + + + | ID | Date | Data Source | + + + + | [id number] | 01/10/2019 05:44:00 | [facility] | | [id number] | PM CDT | [place] | + + + + +---------+-------+---------+---------+---------+---------+---------+ | Name | Value | Range | Interpr | Descrip | Data | Support | | | | | etation | tion | Source( | ing | | | | | Code | | s) | Documen | | | | | | | | t(s) | +---------+-------+---------+---------+---------+---------+---------+ | Hemoglo | 9.5 % | 4.0-6.0 | High | | Healths | | | bin | | | | | tar | | | A1c/Hem | | | | | Physici | | | oglobin | | | | | ans Hot | | | .total | | | | | | | | in | | | | | [place] | | | Blood | | | | | [place] | | +---------+-------+---------+---------+---------+---------+---------+ + + + + | ID | Date | Data Source | + + + + | [id number] | 01/10/2019 05:44:00 | [facility] | | [id number] | PM CDT | [place] | + + + + +---------+---------+---------+---------+---------+---------+---------+ | Name | Value | Range | Interpr | Descrip | Data | Support | | | | | etation | tion | Source( | ing | | | | | Code | | s) | Documen | | | | | | | | t(s) | +---------+---------+---------+---------+---------+---------+---------+ | GLUCOSE | 386 | 74-106 | High | | Healths | | | | mg/dL | | | | tar | | | | | | | | Physici | | | | | | | | ans Hot | | | | | | | | | | | | | | | | [place] | | | | | | | | [place] | | +---------+---------+---------+---------+---------+---------+---------+ | BUN | 32 | 9-20 | High | | Healths | | | | mg/dL | | | | tar | | | | | | | | Physici | | | | | | | | ans Hot | | | | | | | | | | | | | | | | [place] | | | | | | | | [place] | | +---------+---------+---------+---------+---------+---------+---------+ | CREATIN | 1.93 | 0.52-1. | High | | Healths | | | INE | mg/dL | 04 | | | tar | | | | | | | | Physici | | | | | | | | ans Hot | | | | | | | | | | | | | | | | [place] | | | | | | | | [place] | | +---------+---------+---------+---------+---------+---------+---------+ | EGFR | 31.29 | >59.00 | Low | | Healths | | | | mL/min/ | | | | tar | | | | 1.73m2 | | | | Physici | | | LOUIE | | | | | ans Hot | | | N | | | | | | | | | | | | | [facility] | | | | | | | | [facility] | | +---------+---------+---------+---------+---------+---------+---------+ + + | Using the modified MDRD study equations, GFR calculations are not valid | | inpatients less than 18 years of age. | + + +---------+---------+--------+-----+---+---------+---+ | EGFR | 25.82 | >59.00 | Low | | Healths | | | NON-AFR | mL/min/ | | | | tar | | | ICAN | 1.73m2 | | | | Physici | | | LOUIE | | | | | ans Hot | | | N | | | | | | | | | | | | | [facility] | | | | | | | | [place] | | +---------+---------+--------+-----+---+---------+---+ + + | Using the modified MDRD study equations, GFR calculations are not valid | | inpatients less than 18 years of age. | + + +---------+---------+---------+--------+---+---------+---+ | BUN/CRE | 16.58 | 6.00-22 | Normal | | Healths | | | AT | Ratio | .00 | | | tar | | | RATIO | | | | | Physici | | | | | | | | ans Hot | | | | | | | | | | | | | | | | [place] | | | | | | | | [place] | | +---------+---------+---------+--------+---+---------+---+ | BILIRUB | 0.5 | 0.2-1.3 | Normal | | Healths | | | IN, | mg/dL | | | | tar | | | TOTAL | | | | | Physici | | | | | | | | ans Hot | | | | | | | | | | | | | | | | [place] | | | | | | | | [facility] | | +---------+---------+---------+--------+---+---------+---+ | AST | 22 U/L | 14-36 | Normal | | Healths | | | (SGOT) | | | | | tar | | | | | | | | Physici | | | | | | | | ans Hot | | | | | | | | | | | | | | | | [place] | | | | | | | | [place] | | +---------+---------+---------+--------+---+---------+---+ | ALT | 19 U/L | <35 | Normal | | Healths | | | (SGPT) | | | | | tar | | | | | | | | Physici | | | | | | | | ans Hot | | | | | | | | | | | | | | | | [place] | | | | | | | | [place] | | +---------+---------+---------+--------+---+---------+---+ | ALKALIN | 134 U/L | 38-126 | High | | Healths | | | E | | | | | tar | | | PHOSPHA | | | | | Physici | | | TASE | | | | | ans Hot | | | | | | | | | | | | | | | | [facility] | | | | | | | | [place] | | +---------+---------+---------+--------+---+---------+---+ | CALCIUM | 9.0 | 8.4-10. | Normal | | Healths | | | | mg/mL | 2 | | | tar | | | | | | | | Physici | | | | | | | | ans Hot | | | | | | | | | | | | | | | | [place] | | | | | | | | [place] | | +---------+---------+---------+--------+---+---------+---+ | SODIUM | 135 | 137-145 | Low | | Healths | | | | mmol/L | | | | tar | | | | | | | | Physici | | | | | | | | ans Hot | | | | | | | | | | | | | | | | [place] | | | | | | | | [place] | | +---------+---------+---------+--------+---+---------+---+ | POTASSI | 4.8 | 3.5-5.1 | Normal | | Healths | | | UM | mmol/L | | | | tar | | | | | | | | Physici | | | | | | | | ans Hot | | | | | | | | | | | | | | | | [place] | | | | | | | | [facility] | | +---------+---------+---------+--------+---+---------+---+ | CHLORID | 97 | 98-107 | Low | | Healths | | | E | mmol/L | | | | tar | | | | | | | | Physici | | | | | | | | ans Hot | | | | | | | | | | | | | | | | [facility] | | | | | | | | [facility] | | +---------+---------+---------+--------+---+---------+---+ | CO2 | 21 | 22-30 | Low | | Healths | | | | mmol/L | | | | tar | | | | | | | | Physici | | | | | | | | ans Hot | | | | | | | | | | | | | | | | [place] | | | | | | | | [place] | | +---------+---------+---------+--------+---+---------+---+ | ANION | 22 | 7-16 | High | | Healths | | | GAP | mmol/L | | | | tar | | | | | | | | Physici | | | | | | | | ans Hot | | | | | | | | | | | | | | | | [place] | | | | | | | | [place] | | +---------+---------+---------+--------+---+---------+---+ | TOTAL | 6.6 | 6.3-8.2 | Normal | | Healths | | | PROTEIN | g/dL | | | | tar | | | | | | | | Physici | | | | | | | | ans Hot | | | | | | | | | | | | | | | | [place] | | | | | | | | [place] | | +---------+---------+---------+--------+---+---------+---+ | ALBUMIN | 3.8 | 3.5-5.0 | Normal | | Healths | | | | g/dL | | | | tar | | | | | | | | Physici | | | | | | | | ans Hot | | | | | | | | | | | | | | | | [place] | | | | | | | | [place] | | +---------+---------+---------+--------+---+---------+---+ | GLOBULI | 2.80 | | | | Healths | | | N | | | | | tar | | | | | | | | Physici | | | | | | | | ans Hot | | | | | | | | | | | | | | | | [place] | | | | | | | | [place] | | +---------+---------+---------+--------+---+---------+---+ | ALBUMIN | 1.4 | | | | Healths | | | /GLOBUL | Ratio | | | | tar | | | IN | | | | | Physici | | | | | | | | ans Hot | | | | | | | | | | | | | | | | [place] | | | | | | | | [place] | | +---------+---------+---------+--------+---+---------+---+ + + + + | ID | Date | Data Source | + + + + | [id number] | 01/10/2019 05:44:00 | [facility] | | [id number] | PM CDT | [place] | + + + + +---------+---------+---------+---------+---------+---------+---------+ | Name | Value | Range | Interpr | Descrip | Data | Support | | | | | etation | tion | Source( | ing | | | | | Code | | s) | Documen | | | | | | | | t(s) | +---------+---------+---------+---------+---------+---------+---------+ | WHITE | 11.4 | 4.0-11. | High | | Healths | | | BLOOD | K/uL | 0 | | | tar | | | CELL | | | | | Physici | | | | | | | | ans Hot | | | | | | | | | | | | | | | | [place] | | | | | | | | [place] | | +---------+---------+---------+---------+---------+---------+---------+ | RED | 3.68 | 4.00-5. | Low | | Healths | | | BLOOD | M/uL | 50 | | | tar | | | CELL | | | | | Physici | | | | | | | | ans Hot | | | | | | | | | | | | | | | | [place] | | | | | | | | [place] | | +---------+---------+---------+---------+---------+---------+---------+ | HEMOGLO | 11.9 | 12.0-16 | Low | | Healths | | | BIN | g/dL | .0 | | | tar | | | | | | | | Physici | | | | | | | | ans Hot | | | | | | | | | | | | | | | | [place] | | | | | | | | [place] | | +---------+---------+---------+---------+---------+---------+---------+ | HEMATOC | 34 % | 36-48 | Low | | Healths | | | RIT | | | | | tar | | | | | | | | Physici | | | | | | | | ans Hot | | | | | | | | | | | | | | | | [place] | | | | | | | | [place] | | +---------+---------+---------+---------+---------+---------+---------+ | MEAN | 92 fL | 80-100 | Normal | | Healths | | | CORPUSC | | | | | tar | | | ULAR | | | | | Physici | | | VOLUME | | | | | ans Hot | | | | | | | | | | | | | | | | [facility] | | | | | | | | [place] | | +---------+---------+---------+---------+---------+---------+---------+ | MEAN | 32.3 pg | 26.0-34 | Normal | | Healths | | | CORPUSC | | .0 | | | tar | | | ULAR | | | | | Physici | | | HEMOGLO | | | | | ans Hot | | | BIN | | | | | | | | | | | | | [place] | | | | | | | | [place] | | +---------+---------+---------+---------+---------+---------+---------+ | MEAN | 35.0 | 31.0-37 | Normal | | Healths | | | CORPUSC | g/dL | .0 | | | tar | | | ULAR | | | | | Physici | | | HEMOGLO | | | | | ans Hot | | | BIN | | | | | | | | CONCENT | | | | | [facility] | | | RATION | | | | | [place] | | +---------+---------+---------+---------+---------+---------+---------+ | RED | 46.7 % | 39.1-51 | Normal | | Healths | | | CELL | | .8 | | | tar | | | DISTRIB | | | | | Physici | | | UTION | | | | | ans Hot | | | WIDTH | | | | | | | | | | | | | [facility] | | | | | | | | [place] | | +---------+---------+---------+---------+---------+---------+---------+ | PLATELE | 240 | 150-450 | Normal | | Healths | | | TS | K/uL | | | | tar | | | | | | | | Physici | | | | | | | | ans Hot | | | | | | | | | | | | | | | | [place] | | | | | | | | [place] | | +---------+---------+---------+---------+---------+---------+---------+ | MEAN | 10.0 fL | 7.4-10. | Normal | | Healths | | | PLATELE | | 4 | | | tar | | | T | | | | | Physici | | | VOLUME | | | | | ans Hot | | | | | | | | | | | | | | | | [facility] | | | | | | | | [place] | | +---------+---------+---------+---------+---------+---------+---------+ | NEUTROP | 69.7 % | 42.0-75 | Normal | | Healths | | | HIL, | | .0 | | | tar | | | PERCENT | | | | | Physici | | | AGE | | | | | ans Hot | | | | | | | | | | | | | | | | [facility] | | | | | | | | [place] | | +---------+---------+---------+---------+---------+---------+---------+ | LYMPHOC | 23.9 % | 10.0-58 | Normal | | Healths | | | YTE, | | .0 | | | tar | | | PERCENT | | | | | Physici | | | AGE | | | | | ans Hot | | | | | | | | | | | | | | | | [place] | | | | | | | | [place] | | +---------+---------+---------+---------+---------+---------+---------+ | MIXED, | 6.4 % | 0.0-12. | Normal | | Healths | | | PERCENT | | 0 | | | tar | | | AGE | | | | | Physici | | | | | | | | ans Hot | | | | | | | | | | | | | | | | [facility] | | | | | | | | [place] | | +---------+---------+---------+---------+---------+---------+---------+ | NEUTROP | 8.0 | 2.0-7.8 | High | | Healths | | | HIL, | K/uL | | | | tar | | | ABSOLUT | | | | | Physici | | | E | | | | | ans Hot | | | | | | | | | | | | | | | | [facility] | | | | | | | | [place] | | +---------+---------+---------+---------+---------+---------+---------+ | LYMPHOC | 2.7 | 0.6-4.1 | Normal | | Healths | | | YTE, | K/uL | | | | tar | | | ABSOLUT | | | | | Physici | | | E | | | | | ans Hot | | | | | | | | | | | | | | | | [facility] | | | | | | | | [place] | | +---------+---------+---------+---------+---------+---------+---------+ | MIXED, | 0.7 | 0.3-0.8 | Normal | | Healths | | | ABSOLUT | K/uL | | | | tar | | | E | | | | | Physici | | | | | | | | ans Hot | | | | | | | | | | | | | | | | [facility] | | | | | | | | [place] | | +---------+---------+---------+---------+---------+---------+---------+ | RDW-CV | 13.00 | 11.50-1 | Normal | | Healths | | | | fL | 4.50 | | | tar | | | | | | | | Physici | | | | | | | | ans Hot | | | | | | | | | | | | | | | | [place] | | | | | | | | [place] | | +---------+---------+---------+---------+---------+---------+---------+ + + + + | ID | Date | Data Source | + + + + | [id number] | 01/01/2019 12:00:00 | [facility] | | [id number] | AM CDT | [place] | + + + + +------+-------+-------+---------+---------+---------+---------+ | Name | Value | Range | Interpr | Descrip | Data | Support | | | | | etation | tion | Source( | ing | | | | | Code | | s) | Documen | | | | | | | | t(s) | +------+-------+-------+---------+---------+---------+---------+ | | | | | | | | +------+-------+-------+---------+---------+---------+---------+ + + + + | ID | Date | Data Source | + + + + | [id number] | 09/13/2018 09:21:00 | [facility] | | [id number] | 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 | [place] | + + + + +---------+---------+-------+---------+---------+---------+---------+ | Name | Value | Range | Interpr | Descrip | Data | Support | | | | | etation | tion | Source( | ing | | | | | Code | | s) | Documen | | | | | | | | t(s) | +---------+---------+-------+---------+---------+---------+---------+ | Parathy | 8 pg/mL | 15-65 | Low | | Healths | | | rin.int | | | | | tar | | | act | | | | | Physici | | | [Mass/v | | | | | ans Hot | | | olume] | | | | | | | | in | | | | | [facility] | | | Serum | | | | | [facility] | | | or | | | | | | | | Plasma | | | | | | | +---------+---------+-------+---------+---------+---------+---------+ + + + + | ID | Date | Data Source | + + + + | [id number] | 09/13/2018 09:21:00 | [facility] | | [id number] | 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 | [place] | + + + + +---------+---------+-------+---------+---------+---------+---------+ | Name | Value | Range | Interpr | Descrip | Data | Support | | | | | etation | tion | Source( | ing | | | | | Code | | s) | Documen | | | | | | | | t(s) | +---------+---------+-------+---------+---------+---------+---------+ | Parathy | 8 pg/mL | 15-65 | Low | | Healths | | | rin.int | | | | | tar | | | act | | | | | Physici | | | [Mass/v | | | | | ans Hot | | | olume] | | | | | | | | in | | | | | [facility] | | | Serum | | | | | Sadaf | | | or | | | | | | | | Plasma | | | | | | | +---------+---------+-------+---------+---------+---------+---------+ + + + + | ID | Date | Data Source | + + + + | [id number] | 09/10/2018 04:07:00 | [facility] | | [id number] | PM [employer] OPERATOR | [place] | + + + + +---------+---------+---------+---------+---------+---------+---------+ | Name | Value | Range | Interpr | Descrip | Data | Support | | | | | etation | tion | Source( | ing | | | | | Code | | s) | Documen | | | | | | | | t(s) | +---------+---------+---------+---------+---------+---------+---------+ | GLUCOSE | 448 | 74-106 | Critica | | Healths | | | | mg/dL | | l High | | tar | | | | | | | | Physici | | | | | | | | ans Hot | | | | | | | | | | | | | | | | [facility] | | | | | | | | [facility] | | +---------+---------+---------+---------+---------+---------+---------+ | BUN | 41 | 7-20 | High | | Healths | | | | mg/dL | | | | tar | | | | | | | | Physici | | | | | | | | ans Hot | | | | | | | | | | | | | | | | [facility] | | | | | | | | [place] | | +---------+---------+---------+---------+---------+---------+---------+ | CREATIN | 2.91 | 0.50-1. | High | | Healths | | | INE | mg/dL | 30 | | | tar | | | | | | | | Physici | | | | | | | | ans Hot | | | | | | | | | | | | | | | | [facility] | | | | | | | | [facility] | | +---------+---------+---------+---------+---------+---------+---------+ | EGFR | 19.54 | >59.00 | Low | | Healths | | | | mL/min/ | | | | tar | | | | 1.73m2 | | | | Physici | | | LOUIE | | | | | ans Hot | | | N | | | | | | | | | | | | | [facility] | | | | | | | | [place] | | +---------+---------+---------+---------+---------+---------+---------+ + + | Using the modified MDRD study equations, GFR calculations are not valid | | inpatients less than 18 years of age. | + + +---------+---------+--------+-----+---+---------+---+ | EGFR | 16.12 | >59.00 | Low | | Healths | | | NON-AFR | mL/min/ | | | | tar | | | ICAN | 1.73m2 | | | | [facility] | | | [facility] | | | | | [facility] | | | N | | | | | | | | | | | | | [facility] | | | | | | | | [place] | | +---------+---------+--------+-----+---+---------+---+ + + | Using the modified MDRD study equations, GFR calculations are not valid | | inpatients less than 18 years of age. | + + +---------+---------+---------+--------+---+---------+---+ | BUN/CRE | 14.09 | 6.00-22 | Normal | | Healths | | | AT | Ratio | .00 | | | tar | | | RATIO | | | | | Physici | | | | | | | | ans [facility] | | | | | | | | | | | | | | | | [facility] | | | | | | | | [place] | | +---------+---------+---------+--------+---+---------+---+ | BILIRUB | 0.5 | 0.2-1.3 | Normal | | Healths | | | IN, | mg/dL | | | | tar | | | TOTAL | | | | | Physici | | | | | | | | ans [facility] | | | | | | | | | | | | | | | | [facility] | | | | | | | | [place] | | +---------+---------+---------+--------+---+---------+---+ | AST | 27 U/L | 14-59 | Normal | | Healths | | | (SGOT) | | | | | tar | | | | | | | | Physici | | | | | | | | ans [facility] | | | | | | | | | | | | | | | | [facility] | | | | | | | | [place] | | +---------+---------+---------+--------+---+---------+---+ | ALT | 21 U/L | 0-50 | Normal | | Healths | | | (SGPT) | | | | | tar | | | | | | | | Physici | | | | | | | | ans [facility] | | | | | | | | | | | | | | | | [facility] | | | | | | | | [place] | | +---------+---------+---------+--------+---+---------+---+ | ALKALIN | 134 U/L | 38-126 | High | | Healths | | | E | | | | | tar | | | PHOSPHA | | | | | Physici | | | TASE | | | | | ans [facility] | | | | | | | | | | | | | | | | [facility] | | | | | | | | [place] | | +---------+---------+---------+--------+---+---------+---+ | CALCIUM | 10.9 | 8.4-10. | High | | Healths | | | | mg/mL | 2 | | | tar | | | | | | | | Physici | | | | | | | | ans [facility] | | | | | | | | | | | | | | | | [place] | | | | | | | | [place] | | +---------+---------+---------+--------+---+---------+---+ | SODIUM | 131 | 137-145 | Low | | Healths | | | | mmol/L | | | | tar | | | | | | | | Physici | | | | | | | | ans [facility] | | | | | | | | | | | | | | | | [facility] | | | | | | | | [place] | | +---------+---------+---------+--------+---+---------+---+ | POTASSI | 4.0 | 3.5-5.1 | Normal | | Healths | | | UM | mmol/L | | | | tar | | | | | | | | Physici | | | | | | | | ans [facility] | | | | | | | | | | | | | | | | [place] | | | | | | | | [place] | | +---------+---------+---------+--------+---+---------+---+ | CHLORID | 93 | 98-107 | Low | | Healths | | | E | mmol/L | | | | tar | | | | | | | | Physici | | | | | | | | ans [facility] | | | | | | | | | | | | | | | | [facility] | | | | | | | | [place] | | +---------+---------+---------+--------+---+---------+---+ | CO2 | 29 | 22-30 | Normal | | Healths | | | | mmol/L | | | | tar | | | | | | | | Physici | | | | | | | | ans [facility] | | | | | | | | | | | | | | | | [facility] | | | | | | | | [place] | | +---------+---------+---------+--------+---+---------+---+ | ANION | 13 | 7-16 | Normal | | Healths | | | GAP | mmol/L | | | | tar | | | | | | | | Physici | | | | | | | | ans [facility] | | | | | | | | | | | | | | | | [place] | | | | | | | | [place] | | +---------+---------+---------+--------+---+---------+---+ | TOTAL | 6.9 | 6.3-8.2 | Normal | | Healths | | | PROTEIN | g/dL | | | | tar | | | | | | | | Physici | | | | | | | | [facility] | | | | | | | | | | | | | | | | [place] | | | | | | | | [place] | | +---------+---------+---------+--------+---+---------+---+ | ALBUMIN | 3.8 | 3.5-5.0 | Normal | | Healths | | | | g/dL | | | | tar | | | | | | | | Physici | | | | | | | | ans [facility] | | | | | | | | | | | | | | | | [facility] | | | | | | | | [place] | | +---------+---------+---------+--------+---+---------+---+ | GLOBULI | 3.10 | | | | Healths | | | N | | | | | tar | | | | | | | | Physici | | | | | | | | ans [facility] | | | | | | | | | | | | | | | | [facility] | | | | | | | | [place] | | +---------+---------+---------+--------+---+---------+---+ | ALBUMIN | 1.2 | | | | Healths | | | /GLOBUL | Ratio | | | | tar | | | IN | | | | | Physici | | | | | | | | ans [facility] | | | | | | | | | | | | | | | | [facility] | | | | | | | | [place] | | +---------+---------+---------+--------+---+---------+---+ + + + + | ID | Date | Data Source | + + + + | [id number] | 09/10/2018 04:07:00 | [facility] | | [id number] | 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 | [place] | + + + + +---------+-------+--------+---------+---------+---------+---------+ | Name | Value | Range | Interpr | Descrip | Data | Support | | | | | etation | tion | Source( | ing | | | | | Code | | s) | Documen | | | | | | | | t(s) | +---------+-------+--------+---------+---------+---------+---------+ | VITAMIN | 36 | 30-100 | Normal | | Healths | | | D, 25 | ng/mL | | | | tar | | | HYDROXY | | | | | Physici | | | | | | | | ans [facility] | | | | | | | | | | | | | | | | [place] | | | | | | | | [place] | | +---------+-------+--------+---------+---------+---------+---------+ + + | Defecient <20 ng/mL; Insufficient 20-<30 ng/mL; Sufficient 30-100 | | ng/mL;Potential Toxicity >100 ng/mL | + + + + + + | ID | Date | Data Source | + + + + | [id number] | 09/10/2018 04:07:00 | [facility] | | [id number] | PM SHEAR GRINDER OPERATOR | [place] | + + + + +------+-------+---------+---------+---------+---------+---------+ | Name | Value | Range | Interpr | Descrip | Data | Support | | | | | etation | tion | Source( | ing | | | | | Code | | s) | Documen | | | | | | | | t(s) | +------+-------+---------+---------+---------+---------+---------+ | TSH | 3.65 | 0.47-4. | Normal | | Healths | | | | mIU/L | 68 | | | tar | | | | | | | | Physici | | | | | | | | ans [facility] | | | | | | | | | | | | | | | | [place] | | | | | | | | [place] | | +------+-------+---------+---------+---------+---------+---------+ + + + + | ID | Date | Data Source | + + + + | [id number] | 09/10/2018 04:07:00 | [facility] | | [id number] | PM SHEAR GRINDER OPERATOR | [place] | + + + + +---------+-------+---------+---------+---------+---------+---------+ | Name | Value | Range | Interpr | Descrip | Data | Support | | | | | etation | tion | Source( | ing | | | | | Code | | s) | Documen | | | | | | | | t(s) | +---------+-------+---------+---------+---------+---------+---------+ | MAGNESI | 2.2 | 1.6-2.3 | Normal | | Healths | | | UM | mg/dL | | | | tar | | | | | | | | Physici | | | | | | | | ans [facility] | | | | | | | | | | | | | | | | [place] | | | | | | | | [place] | | +---------+-------+---------+---------+---------+---------+---------+ + + + + | ID | Date | Data Source | + + + + | [id number] | 09/10/2018 04:07:00 | [facility] | | 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 | [place] | + + + + +---------+-------+---------+---------+---------+---------+---------+ | Name | Value | Range | Interpr | Descrip | Data | Support | | | | | etation | tion | Source( | ing | | | | | Code | | s) | Documen | | | | | | | | t(s) | +---------+-------+---------+---------+---------+---------+---------+ | PHOSPHO | 4.7 | 2.5-4.5 | High | | Healths | | | AMAYA | mg/dL | | | | tar | | | | | | | | Physici | | | | | | | | ans [facility] | | | | | | | | | | | | | | | | [place] | | | | | | | | [place] | | +---------+-------+---------+---------+---------+---------+---------+ + + + + | ID | Date | Data Source | + + + + | [id number] | 09/10/2018 04:07:00 | [facility] | | [id number] | 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 | [place] | + + + + +---------+---------+---------+---------+---------+---------+---------+ | Name | Value | Range | Interpr | Descrip | Data | Support | | | | | etation | tion | Source( | ing | | | | | Code | | s) | Documen | | | | | | | | t(s) | +---------+---------+---------+---------+---------+---------+---------+ | GLUCOSE | 448 | 74-106 | Critica | | Healths | | | | mg/dL | | l High | | tar | | | | | | | | Physici | | | | | | | | ans [facility] | | | | | | | | | | | | | | | | [place] | | | | | | | | [place] | | +---------+---------+---------+---------+---------+---------+---------+ | BUN | 41 | 7-20 | High | | Healths | | | | mg/dL | | | | tar | | | | | | | | Physici | | | | | | | | ans [facility] | | | | | | | | | | | | | | | | [place] | | | | | | | | [place] | | +---------+---------+---------+---------+---------+---------+---------+ | CREATIN | 2.91 | 0.50-1. | High | | Healths | | | INE | mg/dL | 30 | | | tar | | | | | | | | Physici | | | | | | | | ans [facility] | | | | | | | | | | | | | | | | [place] | | | | | | | | [place] | | +---------+---------+---------+---------+---------+---------+---------+ | EGFR | 19.54 | >59.00 | Low | | Healths | | | | mL/min/ | | | | tar | | | | 1.73m2 | | | | Physici | | | [facility]IE | | | | | ans [facility] | | | N | | | | | | | | | | | | | [place] | | | | | | | | [place] | | +---------+---------+---------+---------+---------+---------+---------+ + + | Using the modified MDRD study equations, GFR calculations are not valid | | inpatients less than 18 years of age. | + + +---------+---------+--------+-----+---+---------+---+ | EGFR | 16.12 | >59.00 | Low | | Healths | | | NON-AFR | mL/min/ | | | | tar | | | ICAN | 1.73m2 | | | | Physici | | | [place] | | | | | ans Hot | | | N | | | | | | | | | | | | | [place] | | | | | | | | [place] | | +---------+---------+--------+-----+---+---------+---+ + + | Using the modified MDRD study equations, GFR calculations are not valid | | inpatients less than 18 years of age. | + + +---------+---------+---------+--------+---+---------+---+ | BUN/CRE | 14.09 | 6.00-22 | Normal | | Healths | | | AT | Ratio | .00 | | | tar | | | RATIO | | | | | Physici | | | | | | | | ans Hot | | | | | | | | | | | | | | | | [place] | | | | | | | | [place] | | +---------+---------+---------+--------+---+---------+---+ | BILIRUB | 0.5 | 0.2-1.3 | Normal | | Healths | | | IN, | mg/dL | | | | tar | | | TOTAL | | | | | Physici | | | | | | | | ans Hot | | | | | | | | | | | | | | | | [place] | | | | | | | | [place] | | +---------+---------+---------+--------+---+---------+---+ | AST | 27 U/L | 14-59 | Normal | | Healths | | | (SGOT) | | | | | tar | | | | | | | | Physici | | | | | | | | ans [facility] | | | | | | | | | | | | | | | | [place] | | | | | | | | [place] | | +---------+---------+---------+--------+---+---------+---+ | ALT | 21 U/L | 0-50 | Normal | | Healths | | | (SGPT) | | | | | tar | | | | | | | | Physici | | | | | | | | ans [facility] | | | | | | | | | | | | | | | | [place] | | | | | | | | [place] | | +---------+---------+---------+--------+---+---------+---+ | ALKALIN | 134 U/L | 38-126 | High | | Healths | | | E | | | | | tar | | | PHOSPHA | | | | | Physici | | | TASE | | | | | ans Hot | | | | | | | | | | | | | | | | [place] | | | | | | | | [place] | | +---------+---------+---------+--------+---+---------+---+ | CALCIUM | 10.9 | 8.4-10. | High | | Healths | | | | mg/mL | 2 | | | tar | | | | | | | | Physici | | | | | | | | ans Hot | | | | | | | | | | | | | | | | [place] | | | | | | | | [place] | | +---------+---------+---------+--------+---+---------+---+ | SODIUM | 131 | 137-145 | Low | | Healths | | | | mmol/L | | | | tar | | | | | | | | Physici | | | | | | | | ans Hot | | | | | | | | | | | | | | | | [place] | | | | | | | | [place] | | +---------+---------+---------+--------+---+---------+---+ | POTASSI | 4.0 | 3.5-5.1 | Normal | | Healths | | | UM | mmol/L | | | | tar | | | | | | | | Physici | | | | | | | | ans Hot | | | | | | | | | | | | | | | | [place] | | | | | | | | [place] | | +---------+---------+---------+--------+---+---------+---+ | CHLORID | 93 | 98-107 | Low | | Healths | | | E | mmol/L | | | | tar | | | | | | | | Physici | | | | | | | | ans Hot | | | | | | | | | | | | | | | | [place] | | | | | | | | [place] | | +---------+---------+---------+--------+---+---------+---+ | CO2 | 29 | 22-30 | Normal | | Healths | | | | mmol/L | | | | tar | | | | | | | | Physici | | | | | | | | ans Hot | | | | | | | | | | | | | | | | [place] | | | | | | | | [place] | | +---------+---------+---------+--------+---+---------+---+ | ANION | 13 | 7-16 | Normal | | Healths | | | GAP | mmol/L | | | | tar | | | | | | | | Physici | | | | | | | | ans Hot | | | | | | | | | | | | | | | | [place] | | | | | | | | [place] | | +---------+---------+---------+--------+---+---------+---+ | TOTAL | 6.9 | 6.3-8.2 | Normal | | Healths | | | PROTEIN | g/dL | | | | tar | | | | | | | | Physici | | | | | | | | ans Hot | | | | | | | | | | | | | | | | [place] | | | | | | | | [place] | | +---------+---------+---------+--------+---+---------+---+ | ALBUMIN | 3.8 | 3.5-5.0 | Normal | | Healths | | | | g/dL | | | | tar | | | | | | | | Physici | | | | | | | | ans Hot | | | | | | | | | | | | | | | | [place] | | | | | | | | [place] | | +---------+---------+---------+--------+---+---------+---+ | GLOBULI | 3.10 | | | | Healths | | | N | | | | | tar | | | | | | | | Physici | | | | | | | | ans Hot | | | | | | | | | | | | | | | | [place] | | | | | | | | [place] | | +---------+---------+---------+--------+---+---------+---+ | ALBUMIN | 1.2 | | | | Healths | | | /GLOBUL | Ratio | | | | tar | | | IN | | | | | Physici | | | | | | | | ans Hot | | | | | | | | | | | | | | | | [place] | | | | | | | | [place] | | +---------+---------+---------+--------+---+---------+---+ + + + + | ID | Date | Data Source | + + + + | [id number] | 09/10/2018 04:07:00 | [facility] | | [id number] | PM SHEAR GRINDER OPERATOR | [place] | + + + + +---------+-------+--------+---------+---------+---------+---------+ | Name | Value | Range | Interpr | Descrip | Data | Support | | | | | etation | tion | Source( | ing | | | | | Code | | s) | Documen | | | | | | | | t(s) | +---------+-------+--------+---------+---------+---------+---------+ | VITAMIN | 36 | 30-100 | Normal | | Healths | | | D, 25 | ng/mL | | | | tar | | | HYDROXY | | | | | Physici | | | | | | | | ans Hot | | | | | | | | | | | | | | | | [place] | | | | | | | | [place] | | +---------+-------+--------+---------+---------+---------+---------+ + + | Defecient <20 ng/mL; Insufficient 20-<30 ng/mL; Sufficient 30-100 | | ng/mL;Potential Toxicity >100 ng/mL | + + + + + + | ID | Date | Data Source | + + + + | [id number] | 09/10/2018 04:07:00 | [facility] | | [id number] | PM SHEAR GRINDER OPERATOR | [place] | + + + + +------+-------+---------+---------+---------+---------+---------+ | Name | Value | Range | Interpr | Descrip | Data | Support | | | | | etation | tion | Source( | ing | | | | | Code | | s) | Documen | | | | | | | | t(s) | +------+-------+---------+---------+---------+---------+---------+ | TSH | 3.65 | 0.47-4. | Normal | | Healths | | | | mIU/L | 68 | | | tar | | | | | | | | Physici | | | | | | | | ans Hot | | | | | | | | | | | | | | | | [place] | | | | | | | | [place] | | +------+-------+---------+---------+---------+---------+---------+ + + + + | ID | Date | Data Source | + + + + | [id number] | 09/10/2018 04:07:00 | [facility] | | [id number] | PM SHEAR GRINDER OPERATOR | [place] | + + + + +---------+-------+---------+---------+---------+---------+---------+ | Name | Value | Range | Interpr | Descrip | Data | Support | | | | | etation | tion | Source( | ing | | | | | Code | | s) | Documen | | | | | | | | t(s) | +---------+-------+---------+---------+---------+---------+---------+ | MAGNESI | 2.2 | 1.6-2.3 | Normal | | Healths | | | UM | mg/dL | | | | tar | | | | | | | | Physici | | | | | | | | ans Hot | | | | | | | | | | | | | | | | [place] | | | | | | | | [place] | | +---------+-------+---------+---------+---------+---------+---------+ + + + + | ID | Date | Data Source | + + + + | [id number] | 09/10/2018 04:07:00 | [facility] | | [id number] | PM SHEAR GRINDER OPERATOR | [place] | + + + + +---------+-------+---------+---------+---------+---------+---------+ | Name | Value | Range | Interpr | Descrip | Data | Support | | | | | etation | tion | Source( | ing | | | | | Code | | s) | Documen | | | | | | | | t(s) | +---------+-------+---------+---------+---------+---------+---------+ | PHOSPHO | 4.7 | 2.5-4.5 | High | | Healths | | | AMAYA | mg/dL | | | | tar | | | | | | | | Physici | | | | | | | | ans Hot | | | | | | | | | | | | | | | | [place] | | | | | | | | [place] | | +---------+-------+---------+---------+---------+---------+---------+ + + + + | ID | Date | Data Source | + + + + | [id number] | 09/10/2018 04:07:00 | [facility] | | [id number] | PM SHEAR GRINDER OPERATOR | [place] | + + + + +---------+---------+---------+---------+---------+---------+---------+ | Name | Value | Range | Interpr | Descrip | Data | Support | | | | | etation | tion | Source( | ing | | | | | Code | | s) | Documen | | | | | | | | t(s) | +---------+---------+---------+---------+---------+---------+---------+ | WHITE | 8.6 | 4.0-11. | Normal | | Healths | | | BLOOD | K/uL | 0 | | | tar | | | CELL | | | | | Physici | | | | | | | | ans Hot | | | | | | | | | | | | | | | | [place] | | | | | | | | [place] | | +---------+---------+---------+---------+---------+---------+---------+ | RED | 4.76 | 4.00-5. | Normal | | Healths | | | BLOOD | M/uL | 50 | | | tar | | | CELL | | | | | Physici | | | | | | | | ans Hot | | | | | | | | | | | | | | | | [place] | | | | | | | | [place] | | +---------+---------+---------+---------+---------+---------+---------+ | HEMOGLO | 14.5 | 12.0-16 | Normal | | Healths | | | BIN | g/dL | .0 | | | tar | | | | | | | | Physici | | | | | | | | ans Hot | | | | | | | | | | | | | | | | [place] | | | | | | | | [place] | | +---------+---------+---------+---------+---------+---------+---------+ | HEMATOC | 42 % | 36-48 | Normal | | Healths | | | RIT | | | | | tar | | | | | | | | Physici | | | | | | | | ans Hot | | | | | | | | | | | | | | | | [place] | | | | | | | | [place] | | +---------+---------+---------+---------+---------+---------+---------+ | MEAN | 88 fL | 80-100 | Normal | | Healths | | | CORPUSC | | | | | tar | | | ULAR | | | | | Physici | | | VOLUME | | | | | ans Hot | | | | | | | | | | | | | | | | [place] | | | | | | | | [place] | | +---------+---------+---------+---------+---------+---------+---------+ | MEAN | 30.5 pg | 26.0-34 | Normal | | Healths | | | CORPUSC | | .0 | | | tar | | | ULAR | | | | | Physici | | | HEMOGLO | | | | | ans Hot | | | BIN | | | | | | | | | | | | | [place] | | | | | | | | [place] | | +---------+---------+---------+---------+---------+---------+---------+ | MEAN | 34.4 | 31.0-37 | Normal | | Healths | | | CORPUSC | g/dL | .0 | | | tar | | | ULAR | | | | | Physici | | | HEMOGLO | | | | | ans Hot | | | BIN | | | | | | | | CONCENT | | | | | [facility] | | | [facility] | | | | | [place] | | +---------+---------+---------+---------+---------+---------+---------+ | RED | 43.7 % | 39.1-51 | Normal | | Healths | | | CELL | | .8 | | | tar | | | DISTRIB | | | | | Physici | | | UTION | | | | | ans Hot | | | WIDTH | | | | | | | | | | | | | [place] | | | | | | | | [place] | | +---------+---------+---------+---------+---------+---------+---------+ | PLATELE | 212 | 150-450 | Normal | | Healths | | | TS | K/uL | | | | tar | | | | | | | | Physici | | | | | | | | ans Hot | | | | | | | | | | | | | | | | [place] | | | | | | | | [place] | | +---------+---------+---------+---------+---------+---------+---------+ | MEAN | 10.8 fL | 7.4-10. | High | | Healths | | | PLATELE | | 4 | | | tar | | | T | | | | | Physici | | | VOLUME | | | | | ans Hot | | | | | | | | | | | | | | | | [place] | | | | | | | | [place] | | +---------+---------+---------+---------+---------+---------+---------+ | NEUTROP | 66.0 % | 42.0-75 | Normal | | Healths | | | HIL, | | .0 | | | tar | | | PERCENT | | | | | Physici | | | AGE | | | | | ans Hot | | | | | | | | | | | | | | | | [place] | | | | | | | | [place] | | +---------+---------+---------+---------+---------+---------+---------+ | LYMPHOC | 28.1 % | 10.0-58 | Normal | | Healths | | | YTE, | | .0 | | | tar | | | PERCENT | | | | | Physici | | | AGE | | | | | ans Hot | | | | | | | | | | | | | | | | [place] | | | | | | | | [place] | | +---------+---------+---------+---------+---------+---------+---------+ | MIXED, | 5.9 % | 0.0-12. | Normal | | Healths | | | PERCENT | | 0 | | | tar | | | AGE | | | | | Physici | | | | | | | | ans Hot | | | | | | | | | | | | | | | | [place] | | | | | | | | [place] | | +---------+---------+---------+---------+---------+---------+---------+ | NEUTROP | 5.7 | 2.0-7.8 | Normal | | Healths | | | HIL, | K/uL | | | | tar | | | ABSOLUT | | | | | Physici | | | E | | | | | ans Hot | | | | | | | | | | | | | | | | [place] | | | | | | | | [place] | | +---------+---------+---------+---------+---------+---------+---------+ | LYMPHOC | 2.4 | 0.6-4.1 | Normal | | Healths | | | YTE, | K/uL | | | | tar | | | ABSOLUT | | | | | Physici | | | E | | | | | ans Hot | | | | | | | | | | | | | | | | [place] | | | | | | | | [place] | | +---------+---------+---------+---------+---------+---------+---------+ | MIXED, | 0.5 | 0.3-0.8 | Normal | | Healths | | | ABSOLUT | K/uL | | | | tar | | | E | | | | | Physici | | | | | | | | ans Hot | | | | | | | | | | | | | | | | [place] | | | | | | | | [place] | | +---------+---------+---------+---------+---------+---------+---------+ | RDW-CV | 12.80 | 11.50-1 | Normal | | Healths | | | | fL | 4.50 | | | tar | | | | | | | | Physici | | | | | | | | ans Hot | | | | | | | | | | | | | | | | [place] | | | | | | | | [place] | | +---------+---------+---------+---------+---------+---------+---------+ + + + + | ID | Date | Data Source | + + + + | [id number] | 09/10/2018 04:07:00 | [facility] | | [id number] | PM SHEAR GRINDER OPERATOR | [place] | + + + + +---------+---------+---------+---------+---------+---------+---------+ | Name | Value | Range | Interpr | Descrip | Data | Support | | | | | etation | tion | Source( | ing | | | | | Code | | s) | Documen | | | | | | | | t(s) | +---------+---------+---------+---------+---------+---------+---------+ | WHITE | 8.6 | 4.0-11. | Normal | | Healths | | | BLOOD | K/uL | 0 | | | tar | | | CELL | | | | | Physici | | | | | | | | ans Hot | | | | | | | | | | | | | | | | [facility] | | | | | | | | [place] | | +---------+---------+---------+---------+---------+---------+---------+ | RED | 4.76 | 4.00-5. | Normal | | Healths | | | BLOOD | M/uL | 50 | | | tar | | | CELL | | | | | Physici | | | | | | | | ans Hot | | | | | | | | | | | | | | | | [facility] | | | | | | | | [place] | | +---------+---------+---------+---------+---------+---------+---------+ | HEMOGLO | 14.5 | 12.0-16 | Normal | | Healths | | | BIN | g/dL | .0 | | | tar | | | | | | | | Physici | | | | | | | | ans Hot | | | | | | | | | | | | | | | | [facility] | | | | | | | | [facility] | | +---------+---------+---------+---------+---------+---------+---------+ | HEMATOC | 42 % | 36-48 | Normal | | Healths | | | RIT | | | | | tar | | | | | | | | Physici | | | | | | | | ans Hot | | | | | | | | | | | | | | | | [facility] | | | | | | | | [place] | | +---------+---------+---------+---------+---------+---------+---------+ | MEAN | 88 fL | 80-100 | Normal | | Healths | | | CORPUSC | | | | | tar | | | ULAR | | | | | Physici | | | VOLUME | | | | | ans Hot | | | | | | | | | | | | | | | | [facility] | | | | | | | | [place] | | +---------+---------+---------+---------+---------+---------+---------+ | MEAN | 30.5 pg | 26.0-34 | Normal | | Healths | | | CORPUSC | | .0 | | | tar | | | ULAR | | | | | Physici | | | HEMOGLO | | | | | ans Hot | | | BIN | | | | | | | | | | | | | [facility] | | | | | | | | [facility] | | +---------+---------+---------+---------+---------+---------+---------+ | MEAN | 34.4 | 31.0-37 | Normal | | Healths | | | CORPUSC | g/dL | .0 | | | tar | | | ULAR | | | | | Physici | | | HEMOGLO | | | | | ans Hot | | | BIN | | | | | | | | CONCENT | | | | | [facility] | | | [facility] | | | | | [facility] | | +---------+---------+---------+---------+---------+---------+---------+ | RED | 43.7 % | 39.1-51 | Normal | | Healths | | | CELL | | .8 | | | tar | | | DISTRIB | | | | | Physici | | | UTION | | | | | ans Hot | | | WIDTH | | | | | | | | | | | | | [facility] | | | | | | | | [facility] | | +---------+---------+---------+---------+---------+---------+---------+ | PLATELE | 212 | 150-450 | Normal | | Healths | | | TS | K/uL | | | | tar | | | | | | | | Physici | | | | | | | | ans Hot | | | | | | | | | | | | | | | | [facility] | | | | | | | | [facility] | | +---------+---------+---------+---------+---------+---------+---------+ | MEAN | 10.8 fL | 7.4-10. | High | | Healths | | | PLATELE | | 4 | | | tar | | | T | | | | | Physici | | | VOLUME | | | | | ans Hot | | | | | | | | | | | | | | | | [facility] | | | | | | | | [facility] | | +---------+---------+---------+---------+---------+---------+---------+ | NEUTROP | 66.0 % | 42.0-75 | Normal | | Healths | | | HIL, | | .0 | | | tar | | | PERCENT | | | | | Physici | | | AGE | | | | | ans Hot | | | | | | | | | | | | | | | | [facility] | | | | | | | | [place] | | +---------+---------+---------+---------+---------+---------+---------+ | LYMPHOC | 28.1 % | 10.0-58 | Normal | | Healths | | | YTE, | | .0 | | | tar | | | PERCENT | | | | | Physici | | | AGE | | | | | ans Hot | | | | | | | | | | | | | | | | [facility] | | | | | | | | [place] | | +---------+---------+---------+---------+---------+---------+---------+ | MIXED, | 5.9 % | 0.0-12. | Normal | | Healths | | | PERCENT | | 0 | | | tar | | | AGE | | | | | Physici | | | | | | | | ans Hot | | | | | | | | | | | | | | | | [facility] | | | | | | | | [place] | | +---------+---------+---------+---------+---------+---------+---------+ | NEUTROP | 5.7 | 2.0-7.8 | Normal | | Healths | | | HIL, | K/uL | | | | tar | | | ABSOLUT | | | | | Physici | | | E | | | | | ans Hot | | | | | | | | | | | | | | | | [facility] | | | | | | | | [facility] | | +---------+---------+---------+---------+---------+---------+---------+ | LYMPHOC | 2.4 | 0.6-4.1 | Normal | | Healths | | | YTE, | K/uL | | | | tar | | | ABSOLUT | | | | | Physici | | | E | | | | | ans Hot | | | | | | | | | | | | | | | | [facility] | | | | | | | | [place] | | +---------+---------+---------+---------+---------+---------+---------+ | MIXED, | 0.5 | 0.3-0.8 | Normal | | Healths | | | ABSOLUT | K/uL | | | | tar | | | E | | | | | Physici | | | | | | | | ans Hot | | | | | | | | | | | | | | | | [facility] | | | | | | | | [facility] | | +---------+---------+---------+---------+---------+---------+---------+ | RDW-CV | 12.80 | 11.50-1 | Normal | | Healths | | | | fL | 4.50 | | | tar | | | | | | | | Physici | | | | | | | | ans Hot | | | | | | | | | | | | | | | | [facility] | | | | | | | | [facility] | | +---------+---------+---------+---------+---------+---------+---------+ + + + + | ID | Date | Data Source | + + + + | [id number] | 09/07/2018 12:00:00 | [facility] | | [id number] | 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 | [place] | + + + + +---------+-------+-------+---------+---------+---------+---------+ | Name | Value | Range | Interpr | Descrip | Data | Support | | | | | etation | tion | Source( | ing | | | | | Code | | s) | Documen | | | | | | | | t(s) | +---------+-------+-------+---------+---------+---------+---------+ | STOOL | See | | | | Healths | | | CULTURE | Note | | | | tar | | | | | | | | Physici | | | | | | | | ans Hot | | | | | | | | | | | | | | | | [facility] | | | | | | | | [place] | | +---------+-------+-------+---------+---------+---------+---------+ + + | STOOL CULTUR.br Specimen Stool Shiga Toxin | | Negative Negative CULTURE | | No Salmonella, Shigella, Yersinia, | | Campylobacter or E.coli O157:H7 isolated. Comments on Lab | | Id:[id number] Note: Routine stool culture includes isolation of | | Salmonella, Shigella, Yersinia, Campylobacter, E.coli O157 and Shiga | | Toxin-Producing E.coli. A special request is required for isolation of | | Vibrio or other potential pathogens. [facility] Microbiology | | [id number] [facility] [address] [place], [place] | | [address]Tbyjxoyzly Director: Leo Lynch M.D. [facility]# [id number] | + + + + + + | ID | Date | Data Source | + + + + | [id number] | 09/07/2018 12:00:00 | [facility] | | [id number] | 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 | [place] | + + + + +---------+-------+-------+---------+---------+---------+---------+ | Name | Value | Range | Interpr | Descrip | Data | Support | | | | | etation | tion | Source( | ing | | | | | Code | | s) | Documen | | | | | | | | t(s) | +---------+-------+-------+---------+---------+---------+---------+ | CD | See | | | | Healths | | | GDH/TOX | Note | | | | tar | | | RFX TO | | | | | Physici | | | PCR | | | | | ans Hot | | | | | | | | | | | | | | | | [facility] | | | | | | | | [facility] | | +---------+-------+-------+---------+---------+---------+---------+ + + | C DIFFICILE GDH/TOXIN WITH REFLEX TO PCR C Difficile GDH | | Negative Negative C Difficile Toxin | | Negative Negative Comments on Lab Id:[id number] | | No evidence of C. difficile infection. [facility] Microbiology | | [id number] [facility] [address] [place], [place] | | [address]Kqgpisjdrf Director: Shannon Small# [id number] | + + + + + + | ID | Date | Data Source | + + + + | [id number] | 09/07/2018 12:00:00 | [facility] | | [id number] | 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 | [place] | + + + + +---------+-------+-------+---------+---------+---------+---------+ | Name | Value | Range | Interpr | Descrip | Data | Support | | | | | etation | tion | Source( | ing | | | | | Code | | s) | Documen | | | | | | | | t(s) | +---------+-------+-------+---------+---------+---------+---------+ | OVA/PAR | See | | | | Healths | | | ASITES | Note | | | | tar | | | | | | | | Physici | | | | | | | | ans Hot | | | | | | | | | | | | | | | | [facility] | | | | | | | | [place] | | +---------+-------+-------+---------+---------+---------+---------+ + + | OVA/PARASITES [place] No parasites seen | | No parasites seen Trichrome Stain No parasites seen | | No parasites seen | + + + + + + | ID | Date | Data Source | + + + + | [id number] | 09/07/2018 12:00:00 | [facility] | | [id number] | 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 | [place] | + + + + +---------+-------+-------+---------+---------+---------+---------+ | Name | Value | Range | Interpr | Descrip | Data | Support | | | | | etation | tion | Source( | ing | | | | | Code | | s) | Documen | | | | | | | | t(s) | +---------+-------+-------+---------+---------+---------+---------+ | CD | See | | | | Healths | | | GDH/TOX | Note | | | | tar | | | RFX TO | | | | | Physici | | | PCR | | | | | ans Hot | | | | | | | | | | | | | | | | [facility] | | | | | | | | [facility] | | +---------+-------+-------+---------+---------+---------+---------+ + + | C DIFFICILE GDH/TOXIN WITH REFLEX TO PCR C Difficile GDH | | Negative Negative C Difficile Toxin | | Negative Negative Comments on Lab Id:[id number] | | No evidence of C. difficile infection. 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 | [place] | + + + + +---------+-------+-------+---------+---------+---------+---------+ | Name | Value | Range | Interpr | Descrip | Data | Support | | | | | etation | tion | Source( | ing | | | | | Code | | s) | Documen | | | | | | | | t(s) | +---------+-------+-------+---------+---------+---------+---------+ | OVA/PAR | See | | | | Healths | | | ASITES | Note | | | | tar | | | | | | | | Physici | | | | | | | | ans Hot | | | | | | | | | | | | | | | | [facility] | | | | | | | | [facility] | | +---------+-------+-------+---------+---------+---------+---------+ + + | OVA/PARASITES [place] No parasites seen | | No parasites seen Trichrome Stain No parasites seen | | No parasites seen | + + + + + + | ID | Date | Data Source | + + + + | [id number] | 09/07/2018 12:00:00 | [facility] | | [id number] | 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 | [place] | + + + + +---------+-------+-------+---------+---------+---------+---------+ | Name | Value | Range | Interpr | Descrip | Data | Support | | | | | etation | tion | Source( | ing | | | | | Code | | s) | Documen | | | | | | | | t(s) | +---------+-------+-------+---------+---------+---------+---------+ | STOOL | See | | | | Healths | | | CULTURE | Note | | | | tar | | | | | | | | Physici | | | | | | | | ans Hot | | | | | | | | | | | | | | | | [facility] | | | | | | | | [facility] | | +---------+-------+-------+---------+---------+---------+---------+ + + | STOOL CULTUR.br Specimen Stool Shiga Toxin | | Negative Negative CULTURE | | No Salmonella, Shigella, Yersinia, | | Campylobacter or E.coli O157:H7 isolated. Comments on Lab | | Id:[id number] Note: Routine stool culture includes isolation of | | Salmonella, Shigella, Yersinia, Campylobacter, E.coli O157 and Shiga | | Toxin-Producing E.coli. A special request is required for isolation of | | Vibrio or other potential pathogens. [facility] Microbiology | | [id number] | | [address]Auhuiizory Director: Leo Lynch M.D. 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 | [place] | + + + + +---------+-------+-------+---------+---------+---------+---------+ | Name | Value | Range | Interpr | Descrip | Data | Support | | | | | etation | tion | Source( | ing | | | | | Code | | s) | Documen | | | | | | | | t(s) | +---------+-------+-------+---------+---------+---------+---------+ | STOOL | See | | | | Healths | | | CULTURE | Note | | | | tar | | | | | | | | Physici | | | | | | | | ans Hot | | | | | | | | | | | | | | | | [facility] | | | | | | | | [place] | | +---------+-------+-------+---------+---------+---------+---------+ + + | STOOL CULTUR.br Specimen Stool in [place] Shiga Toxin | | Negative Negative | | CULTURE No Salmonella, Shigella, | | Yersinia, Campylobacter or E.coli O157:H7 | | isolated. Comments on Lab Id:[id number] Note: Routine stool culture | | includes isolation of Salmonella, Shigella, Yersinia, Campylobacter, | | E.coli O157 and Shiga Toxin-Producing E.coli. A special request is | | required for isolation of Vibrio or other potential pathogens. 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 | [place] | + + + + +---------+-------+-------+---------+---------+---------+---------+ | Name | Value | Range | Interpr | Descrip | Data | Support | | | | | etation | tion | Source( | ing | | | | | Code | | s) | Documen | | | | | | | | t(s) | +---------+-------+-------+---------+---------+---------+---------+ | OVA/PAR | See | | | | Healths | | | ASITES | Note | | | | tar | | | | | | | | Physici | | | | | | | | ans Hot | | | | | | | | | | | | | | | | [facility] | | | | | | | | [facility] | | +---------+-------+-------+---------+---------+---------+---------+ + + | OVA/PARASITES [place] No parasites seen | | No parasites seen Trichrome Stain No parasites seen | | No parasites seen | + + + + + + | ID | Date | Data Source | + + + + | [id number] | 09/06/2018 11:44:00 | [facility] | | [id number] | 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 | [place] | + + + + +---------+-------+-------+---------+---------+---------+---------+ | Name | Value | Range | Interpr | Descrip | Data | Support | | | | | etation | tion | Source( | ing | | | | | Code | | s) | Documen | | | | | | | | t(s) | +---------+-------+-------+---------+---------+---------+---------+ | STOOL | See | | | | Healths | | | CULTURE | Note | | | | tar | | | | | | | | Physici | | | | | | | | ans Hot | | | | | | | | | | | | | | | | [facility] | | | | | | | | [facility] | | +---------+-------+-------+---------+---------+---------+---------+ + + | STOOL CULTUR.br Specimen Stool in [place] Shiga Toxin | | Negative Negative | | CULTURE No Salmonella, Shigella, | | Yersinia, Campylobacter or E.coli O157:H7 | | isolated. Comments on Lab Id:[id number] Note: Routine stool culture | | includes isolation of Salmonella, Shigella, Yersinia, Campylobacter, | | E.coli O157 and Shiga Toxin-Producing E.coli. A special request is | | required for isolation of Vibrio or other potential pathogens. [facility] - | | [facility] Microbiology [address], | | [place] [address]Imnggecqre Director: Shannon Small# [id number] | + + + + + + | ID | Date | Data Source | + + + + | [id number] | 09/06/2018 11:44:00 | [facility] | | [id number] | 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 | [place] | + + + + +---------+-------+-------+---------+---------+---------+---------+ | Name | Value | Range | Interpr | Descrip | Data | Support | | | | | etation | tion | Source( | ing | | | | | Code | | s) | Documen | | | | | | | | t(s) | +---------+-------+-------+---------+---------+---------+---------+ | OVA/PAR | See | | | | Healths | | | ASITES | Note | | | | tar | | | | | | | | Physici | | | | | | | | ans Hot | | | | | | | | | | | | | | | | [facility] | | | | | | | | [place] | | +---------+-------+-------+---------+---------+---------+---------+ + + | OVA/PARASITES [place] No parasites seen | | No parasites seen Trichrome Stain No parasites seen | | No parasites seen | + + + + + + | ID | Date | Data Source | + + + + | [id number] | 06/15/2018 12:58:00 | [facility] | | [id number] | PM SHEAR GRINDER OPERATOR | [place] | + + + + +--------+---------+---------+---------+---------+---------+---------+ | Name | Value | Range | Interpr | Descrip | Data | Support | | | | | etation | tion | Source( | ing | | | | | Code | | s) | Documen | | | | | | | | t(s) | +--------+---------+---------+---------+---------+---------+---------+ | WBC | 7.1 | 4.0-11. | | | Healths | | | | K/uL | 0 | | | tar | | | | | | | | Physici | | | | | | | | ans Hot | | | | | | | | | | | | | | | | [facility] | | | | | | | | [place] | | +--------+---------+---------+---------+---------+---------+---------+ | RBC | 3.77 | 4.0-6.0 | | | Healths | | | | M/uL | | | | tar | | | | | | | | Physici | | | | | | | | ans Hot | | | | | | | | | | | | | | | | [facility] | | | | | | | | [place] | | +--------+---------+---------+---------+---------+---------+---------+ | HBG | 11.6 | 12.0-17 | | | Healths | | | | g/dL | .5 | | | tar | | | | | | | | Physici | | | | | | | | ans Hot | | | | | | | | | | | | | | | | [facility] | | | | | | | | [place] | | +--------+---------+---------+---------+---------+---------+---------+ | HCT | 35.9 % | 40.0-54 | | | Healths | | | | | .0 | | | tar | | | | | | | | Physici | | | | | | | | ans Hot | | | | | | | | | | | | | | | | [facility] | | | | | | | | [place] | | +--------+---------+---------+---------+---------+---------+---------+ | MCV | 95.2 fL | 80.0-10 | | | Healths | | | | | 0.0 | | | tar | | | | | | | | Physici | | | | | | | | ans Hot | | | | | | | | | | | | | | | | [facility] | | | | | | | | [place] | | +--------+---------+---------+---------+---------+---------+---------+ | MCH | 30.8 pg | 26.0-34 | | | Healths | | | | | .0 | | | tar | | | | | | | | Physici | | | | | | | | ans Hot | | | | | | | | | | | | | | | | [facility] | | | | | | | | [place] | | +--------+---------+---------+---------+---------+---------+---------+ | MCHC | 32.3 | 31.0-37 | | | Healths | | | | g/dL | .0 | | | tar | | | | | | | | Physici | | | | | | | | ans Hot | | | | | | | | | | | | | | | | [facility] | | | | | | | | [place] | | +--------+---------+---------+---------+---------+---------+---------+ | PLT | 179 | 150-450 | | | Healths | | | | K/uL | | | | tar | | | | | | | | Physici | | | | | | | | ans Hot | | | | | | | | | | | | | | | | [facility] | | | | | | | | [place] | | +--------+---------+---------+---------+---------+---------+---------+ | LYM% | 24.8 % | 10-58 | | | Healths | | | | | | | | tar | | | | | | | | Physici | | | | | | | | ans Hot | | | | | | | | | | | | | | | | [facility] | | | | | | | | [place] | | +--------+---------+---------+---------+---------+---------+---------+ | MXD% | 6.8 % | 0-12 | | | Healths | | | | | | | | tar | | | | | | | | Physici | | | | | | | | ans Hot | | | | | | | | | | | | | | | | [facility] | | | | | | | | [place] | | +--------+---------+---------+---------+---------+---------+---------+ | NEUT% | 68.4 % | 42.0-75 | | | Healths | | | | | .0 | | | tar | | | | | | | | Physici | | | | | | | | ans Hot | | | | | | | | | | | | | | | | [place] | | | | | | | | [place] | | +--------+---------+---------+---------+---------+---------+---------+ | LYM# | 1.8 | 0.6-4.1 | | | Healths | | | | K/uL | 0 | | | tar | | | | | | | | Physici | | | | | | | | ans Hot | | | | | | | | | | | | | | | | [facility] | | | | | | | | [place] | | +--------+---------+---------+---------+---------+---------+---------+ | MXD# | 0.5 | 0.3-0.8 | | | Healths | | | | K/uL | 0 | | | tar | | | | | | | | Physici | | | | | | | | ans Hot | | | | | | | | | | | | | | | | [facility] | | | | | | | | [place] | | +--------+---------+---------+---------+---------+---------+---------+ | NEUT# | 4.8 | 2.0-7.8 | | | Healths | | | | K/uL | 0 | | | tar | | | | | | | | Physici | | | | | | | | ans Hot | | | | | | | | | | | | | | | | [place] | | | | | | | | [place] | | +--------+---------+---------+---------+---------+---------+---------+ | RDW-SD | 51.3 fL | 39.1-51 | | | Healths | | | | | .6 | | | tar | | | | | | | | Physici | | | | | | | | ans Hot | | | | | | | | | | | | | | | | [place] | | | | | | | | [place] | | +--------+---------+---------+---------+---------+---------+---------+ | RDW-CV | 14.6 % | 11.5-14 | | | Healths | | | | | .5 | | | tar | | | | | | | | Physici | | | | | | | | ans Hot | | | | | | | | | | | | | | | | [facility] | | | | | | | | [place] | | +--------+---------+---------+---------+---------+---------+---------+ | MPV | 10.9 fL | 7.4-10. | | | Healths | | | | | 4 | | | tar | | | | | | | | Physici | | | | | | | | ans Hot | | | | | | | | | | | | | | | | [facility] | | | | | | | | [place] | | +--------+---------+---------+---------+---------+---------+---------+ + + + + | ID | Date | Data Source | + + + + | [id number] | 06/15/2018 12:57:00 | [facility] | | [id number] | PM SHEAR GRINDER OPERATOR | [place] | + + + + +---------+-------+---------+---------+---------+---------+---------+ | Name | Value | Range | Interpr | Descrip | Data | Support | | | | | etation | tion | Source( | ing | | | | | Code | | s) | Documen | | | | | | | | t(s) | +---------+-------+---------+---------+---------+---------+---------+ | TC | <100 | 100-199 | | | Healths | | | | mg/dL | | | | tar | | | | | | | | Physici | | | | | | | | ans Hot | | | | | | | | | | | | | | | | [facility] | | | | | | | | [place] | | +---------+-------+---------+---------+---------+---------+---------+ | HDL | 32 | 40-60 | | | Healths | | | | mg/dL | | | | tar | | | | | | | | Physici | | | | | | | | ans Hot | | | | | | | | | | | | | | | | [facility] | | | | | | | | [place] | | +---------+-------+---------+---------+---------+---------+---------+ | TRG | 93 | 0-199 | | | Healths | | | | mg/dL | | | | tar | | | | | | | | Physici | | | | | | | | ans Hot | | | | | | | | | | | | | | | | [facility] | | | | | | | | [place] | | +---------+-------+---------+---------+---------+---------+---------+ | LDL | N/A | 0-99 | | | Healths | | | | mg/dL | | | | tar | | | | | | | | Physici | | | | | | | | ans Hot | | | | | | | | | | | | | | | | [facility] | | | | | | | | [place] | | +---------+-------+---------+---------+---------+---------+---------+ | NON-HDL | N/A | | | | Healths | | | | mg/dL | | | | tar | | | | | | | | Physici | | | | | | | | ans Hot | | | | | | | | | | | | | | | | [facility] | | | | | | | | [place] | | +---------+-------+---------+---------+---------+---------+---------+ | TC/HDL | N/A | 0-5.0 | | | Healths | | | | | | | | tar | | | | | | | | Physici | | | | | | | | ans Hot | | | | | | | | | | | | | | | | [facility] | | | | | | | | [place] | | +---------+-------+---------+---------+---------+---------+---------+ + + + + | ID | Date | Data Source | + + + + | [id number] | 06/15/2018 12:56:00 | [facility] | | [id number] | PM SHEAR GRINDER OPERATOR | [place] | + + + + +---------+-------+--------+---------+---------+---------+---------+ | Name | Value | Range | Interpr | Descrip | Data | Support | | | | | etation | tion | Source( | ing | | | | | Code | | s) | Documen | | | | | | | | t(s) | +---------+-------+--------+---------+---------+---------+---------+ | MICROAL | 150 | 0-10 | | | Healths | | | BUMIN | mg/L | | | | tar | | | | | | | | Physici | | | | | | | | ans Hot | | | | | | | | | | | | | | | | [place] | | | | | | | | [place] | | +---------+-------+--------+---------+---------+---------+---------+ | CREATIN | 100 | 10-300 | | | Healths | | | INE | mg/dL | | | | tar | | | | | | | | Physici | | | | | | | | ans Hot | | | | | | | | | | | | | | | | [facility] | | | | | | | | [place] | | +---------+-------+--------+---------+---------+---------+---------+ | A/C | >300 | <30 | | | Healths | | | RATIO | | | | | tar | | | | | | | | Physici | | | | | | | | ans Hot | | | | | | | | | | | | | | | | [place] | | | | | | | | [place] | | +---------+-------+--------+---------+---------+---------+---------+ + + + + | ID | Date | Data Source | + + + + | [id number] | 06/15/2018 12:56:00 | [facility] | | [id number] | PM SHEAR GRINDER OPERATOR | [place] | + + + + +---------+-------+-------+---------+---------+---------+---------+ | Name | Value | Range | Interpr | Descrip | Data | Support | | | | | etation | tion | Source( | ing | | | | | Code | | s) | Documen | | | | | | | | t(s) | +---------+-------+-------+---------+---------+---------+---------+ | HGB A1C | 7.4 % | <6.0 | | | Healths | | | | | | | | tar | | | | | | | | Physici | | | | | | | | ans Hot | | | | | | | | | | | | | | | | [place] | | | | | | | | [place] | | +---------+-------+-------+---------+---------+---------+---------+ + + + + | ID | Date | Data Source | + + + + | [id number] | 06/15/2018 09:34:00 | [facility] | | [id number] | 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 | [place] | + + + + +---------+-------+--------+---------+---------+---------+---------+ | Name | Value | Range | Interpr | Descrip | Data | Support | | | | | etation | tion | Source( | ing | | | | | Code | | s) | Documen | | | | | | | | t(s) | +---------+-------+--------+---------+---------+---------+---------+ | Choleca | 23 | 30-100 | Low | | Healths | | | lcifero | ng/mL | | | | tar | | | l (Vit | | | | | Physici | | | D3) | | | | | ans Hot | | | [Mass/v | | | | | | | | olume] | | | | | [facility] | | | in | | | | | [facility] | | | Serum | | | | | | | | or | | | | | | | | Plasma | | | | | | | +---------+-------+--------+---------+---------+---------+---------+ + + | INTERPRETIVE RANGES PEDIATRIC(<17 YEARS) | | 20-100 ng/mL ADULT: INSUFFICIENT | | <20 ng/mL SUBOPTIMAL 20-29 ng/mL | | OPTIMAL 30-100 ng/mL | + + + + + + | ID | Date | Data Source | + + + + | [id number] | 06/15/2018 09:34:00 | [facility] | | [phone] | 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 | [place] | + + + + +---------+---------+---------+---------+---------+---------+---------+ | Name | Value | Range | Interpr | Descrip | Data | Support | | | | | etation | tion | Source( | ing | | | | | Code | | s) | Documen | | | | | | | | t(s) | +---------+---------+---------+---------+---------+---------+---------+ | Sodium | 140 | 135-146 | | | Healths | | | [Moles/ | mEq/L | | | | tar | | | volume] | | | | | Physici | | | in | | | | | ans Hot | | | Serum | | | | | | | | or | | | | | Regan | | | Plasma | | | | | [place] | | +---------+---------+---------+---------+---------+---------+---------+ | [place]i | 4.3 | 3.5-5.4 | | | Healths | | | um | mEq/L | | | | tar | | | [Moles/ | | | | | Physici | | | volume] | | | | | ans Hot | | | in | | | | | | | | Serum | | | | | Regan | | | or | | | | | Sadaf | | | Plasma | | | | | | | +---------+---------+---------+---------+---------+---------+---------+ | Chlorid | 101 | 95-107 | | | Healths | | | e | mEq/L | | | | tar | | | [Moles/ | | | | | Physici | | | volume] | | | | | ans Hot | | | in | | | | | | | | Serum | | | | | Regan | | | or | | | | | Sadaf | | | Plasma | | | | | | | +---------+---------+---------+---------+---------+---------+---------+ | Carbon | 27 | 19-31 | | | Healths | | | dioxide | mEq/L | | | | tar | | | , total | | | | | Physici | | | | | | | | ans Hot | | | [Moles/ | | | | | | | | volume] | | | | | Regan | | | in | | | | | Sadaf | | | Serum | | | | | | | | or | | | | | | | | Plasma | | | | | | | +---------+---------+---------+---------+---------+---------+---------+ | Urea | 31 | 8-23 | High | | Healths | | | nitroge | mg/dL | | | | tar | | | n | | | | | Physici | | | [Mass/v | | | | | ans Hot | | | olume] | | | | | | | | in | | | | | [facility] | | | Serum | | | | | [place] | | | or | | | | | | | | Plasma | | | | | | | +---------+---------+---------+---------+---------+---------+---------+ | Creatin | 2.28 | 0.6-1.3 | High | | Healths | | | ine | mg/dL | | | | tar | | | [Mass/v | | | | | Physici | | | olume] | | | | | ans Hot | | | in | | | | | | | | Serum | | | | | [facility] | | | or | | | | | [place] | | | Plasma | | | | | | | +---------+---------+---------+---------+---------+---------+---------+ | Glucose | 159 | 70-99 | High | | Healths | | | | mg/dL | | | | tar | | | [Mass/v | | | | | Physici | | | olume] | | | | | ans Hot | | | in | | | | | | | | Serum | | | | | [facility]an | | | or | | | | | Sadaf | | | Plasma | | | | | | | +---------+---------+---------+---------+---------+---------+---------+ | Calcium | 9.9 | 8.5-10. | | | Healths | | | | mg/dL | 5 | | | tar | | | [Mass/v | | | | | Physici | | | olume] | | | | | ans Hot | | | in | | | | | | | | Serum | | | | | [facility] | | | or | | | | | [facility] | | | Plasma | | | | | | | +---------+---------+---------+---------+---------+---------+---------+ | Protein | 6.3 | 6.1-8.3 | | | Healths | | | | g/dL | | | | tar | | | [Mass/v | | | | | Physici | | | olume] | | | | | ans Hot | | | in | | | | | | | | Serum | | | | | [facility] | | | or | | | | | [facility] | | | Plasma | | | | | | | +---------+---------+---------+---------+---------+---------+---------+ | Albumin | 3.6 | 3.5-5.2 | | | Healths | | | | g/dL | | | | tar | | | [Mass/v | | | | | Physici | | | olume] | | | | | ans Hot | | | in | | | | | | | | Serum | | | | | [facility]an | | | or | | | | | Sadaf | | | Plasma | | | | | | | +---------+---------+---------+---------+---------+---------+---------+ | Asparta | 20 U/L | 9-40 | | | Healths | | | te | | | | | tar | | | aminotr | | | | | Physici | | | ansfera | | | | | ans Hot | | | se | | | | | | | | [Enzyma | | | | | [facility]an | | | tic | | | | | Sadaf | | | activit | | | | | | | | y/volum | | | | | | | | e] in | | | | | | | | Serum | | | | | | | | or | | | | | | | | Plasma | | | | | | | +---------+---------+---------+---------+---------+---------+---------+ | Alanine | 15 U/L | 5-40 | | | Healths | | | | | | | | tar | | | aminotr | | | | | Physici | | | ansfera | | | | | ans Hot | | | se | | | | | | | | [Enzyma | | | | | Regan | | | tic | | | | | Sadaf | | | activit | | | | | | | | y/volum | | | | | | | | e] in | | | | | | | | Serum | | | | | | | | or | | | | | | | | Plasma | | | | | | | +---------+---------+---------+---------+---------+---------+---------+ | Alkalin | 92 U/L | 40-142 | | | Healths | | | e | | | | | tar | | | phospha | | | | | Physici | | | tase | | | | | ans Hot | | | [Enzyma | | | | | | | | tic | | | | | Regan | | | activit | | | | | Sadfa | | | y/volum | | | | | | | | e] in | | | | | | | | Serum | | | | | | | | or | | | | | | | | Plasma | | | | | | | +---------+---------+---------+---------+---------+---------+---------+ | Bilirub | 0.5 | <=1.2 | | | Healths | | | in.tota | mg/dL | | | | tar | | | l | | | | | Physici | | | [Mass/v | | | | | ans Hot | | | olume] | | | | | | | | in | | | | | [facility]an | | | Serum | | | | | Sadaf | | | or | | | | | | | | Plasma | | | | | | | +---------+---------+---------+---------+---------+---------+---------+ | Glomeru | 22 | | Low | | Healths | | | lar | mL/min/ | | | | tar | | | filtrat | 1.73m'2 | | | | Physici | | | ion | | | | | ans Hot | | | rate/1. | | | | | | | | 73 sq M | | | | | [facility] | | | | | | | | [place] | | | predict | | | | | | | | ed | | | | | | | | among | | | | | | | | non-richard | | | | | | | | cks | | | | | | | | [Volume | | | | | | | | | | | | | | | | Rate/Ar | | | | | | | | ea] in | | | | | | | | Serum | | | | | | | | or | | | | | | | | Plasma | | | | | | | | by | | | | | | | | Creatin | | | | | | | | ine-bas | | | | | | | | ed | | | | | | | | formula | | | | | | | | (MDRD) | | | | | | | +---------+---------+---------+---------+---------+---------+---------+ | Glomeru | 25 | | Low | | Healths | | | lar | mL/min/ | | | | tar | | | filtrat | 1.73m'2 | | | | Physici | | | ion | | | | | ans Hot | | | rate/1. | | | | | | | | [address] sq M | | | | | Regan | | | | | | | | Sadaf | | | predict | | | | | | | | ed | | | | | | | | among | | | | | | | | blacks | | | | | | | | [Volume | | | | | | | | | | | | | | | | Rate/Ar | | | | | | | | ea] in | | | | | | | | Serum | | | | | | | | or | | | | | | | | Plasma | | | | | | | | by | | | | | | | | Creatin | | | | | | | | ine-bas | | | | | | | | ed | | | | | | | | formula | | | | | | | | (MDRD) | | | | | | | +---------+---------+---------+---------+---------+---------+---------+ + + | ESTIMATED GFR (CALCULATED) REF RANGE: > OR = 60 mL/min/1.73M'2 | + + + + + + | ID | Date | Data Source | + + + + | [id number] | 06/15/2018 09:34:00 | [facility] | | [id number] | 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 | Ezio Talavera | + + + + +---------+-------+--------+---------+---------+---------+---------+ | Name | Value | Range | Interpr | Descrip | Data | Support | | | | | etation | tion | Source( | ing | | | | | Code | | s) | Documen | | | | | | | | t(s) | +---------+-------+--------+---------+---------+---------+---------+ | Choleca | 23 | 30-100 | Low | | Healths | | | lcifero | ng/mL | | | | tar | | | l (Vit | | | | | Physici | | | D3) | | | | | ans Hot | | | [Mass/v | | | | | | | | olume] | | | | | [facility] | | | in | | | | | Sadaf | | | Serum | | | | | | | | or | | | | | | | | Plasma | | | | | | | +---------+-------+--------+---------+---------+---------+---------+ + + | INTERPRETIVE RANGES PEDIATRIC(<17 YEARS) | | 20-100 ng/mL ADULT: INSUFFICIENT | | <20 ng/mL SUBOPTIMAL 20-29 ng/mL | | OPTIMAL 30-100 ng/mL | + + + + + + | ID | Date | Data Source | + + + + | [id number] | 06/15/2018 09:34:00 | [facility] | | [id number] | 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 | [place] | + + + + +---------+---------+---------+---------+---------+---------+---------+ | Name | Value | Range | Interpr | Descrip | Data | Support | | | | | etation | tion | Source( | ing | | | | | Code | | s) | Documen | | | | | | | | t(s) | +---------+---------+---------+---------+---------+---------+---------+ | Sodium | 140 | 135-146 | | | Healths | | | [Moles/ | mEq/L | | | | tar | | | volume] | | | | | Physici | | | in | | | | | ans Hot | | | Serum | | | | | | | | or | | | | | [facility]an | | | Plasma | | | | | [place] | | +---------+---------+---------+---------+---------+---------+---------+ | Potassi | 4.3 | 3.5-5.4 | | | Healths | | | um | mEq/L | | | | tar | | | [Moles/ | | | | | Physici | | | volume] | | | | | ans Hot | | | in | | | | | | | | Serum | | | | | Regan | | | or | | | | | Sadaf | | | Plasma | | | | | | | +---------+---------+---------+---------+---------+---------+---------+ | Chlorid | 101 | 95-107 | | | Healths | | | e | mEq/L | | | | tar | | | [Moles/ | | | | | Physici | | | volume] | | | | | ans Hot | | | in | | | | | | | | Serum | | | | | Regan | | | or | | | | | Sadaf | | | Plasma | | | | | | | +---------+---------+---------+---------+---------+---------+---------+ | Carbon | 27 | 19-31 | | | Healths | | | dioxide | mEq/L | | | | tar | | | , total | | | | | Physici | | | | | | | | ans Hot | | | [Moles/ | | | | | | | | volume] | | | | | Regan | | | in | | | | | Sadaf | | | Serum | | | | | | | | or | | | | | | | | Plasma | | | | | | | +---------+---------+---------+---------+---------+---------+---------+ | Urea | 31 | 8-23 | High | | Healths | | | nitroge | mg/dL | | | | tar | | | n | | | | | Physici | | | [Mass/v | | | | | ans Hot | | | olume] | | | | | | | | in | | | | | Regan | | | Serum | | | | | Sadaf | | | or | | | | | | | | Plasma | | | | | | | +---------+---------+---------+---------+---------+---------+---------+ | Creatin | 2.28 | 0.6-1.3 | High | | Healths | | | ine | mg/dL | | | | tar | | | [Mass/v | | | | | Physici | | | olume] | | | | | ans Hot | | | in | | | | | | | | Serum | | | | | [facility] | | | or | | | | | [place] | | | Plasma | | | | | | | +---------+---------+---------+---------+---------+---------+---------+ | Glucose | 159 | 70-99 | High | | Healths | | | | mg/dL | | | | tar | | | [Mass/v | | | | | Physici | | | olume] | | | | | ans Hot | | | in | | | | | | | | Serum | | | | | Regan | | | or | | | | | Sadaf | | | Plasma | | | | | | | +---------+---------+---------+---------+---------+---------+---------+ | Calcium | 9.9 | 8.5-10. | | | Healths | | | | mg/dL | 5 | | | tar | | | [Mass/v | | | | | Physici | | | olume] | | | | | ans Hot | | | in | | | | | | | | Serum | | | | | Regan | | | or | | | | | Sadaf | | | Plasma | | | | | | | +---------+---------+---------+---------+---------+---------+---------+ | Protein | 6.3 | 6.1-8.3 | | | Healths | | | | g/dL | | | | tar | | | [Mass/v | | | | | Physici | | | olume] | | | | | ans Hot | | | in | | | | | | | | Serum | | | | | Regan | | | or | | | | | Sadaf | | | Plasma | | | | | | | +---------+---------+---------+---------+---------+---------+---------+ | Albumin | 3.6 | 3.5-5.2 | | | Healths | | | | g/dL | | | | tar | | | [Mass/v | | | | | Physici | | | olume] | | | | | ans Hot | | | in | | | | | | | | Serum | | | | | [facility] | | | or | | | | | [place] | | | Plasma | | | | | | | +---------+---------+---------+---------+---------+---------+---------+ | Asparta | 20 U/L | 9-40 | | | Healths | | | te | | | | | tar | | | aminotr | | | | | Physici | | | ansfera | | | | | ans Hot | | | se | | | | | | | | [Enzyma | | | | | [facility] | | | tic | | | | | [place] | | | activit | | | | | | | | y/volum | | | | | | | | e] in | | | | | | | | Serum | | | | | | | | or | | | | | | | | Plasma | | | | | | | +---------+---------+---------+---------+---------+---------+---------+ | Alanine | 15 U/L | 5-40 | | | Healths | | | | | | | | tar | | | aminotr | | | | | Physici | | | ansfera | | | | | ans Hot | | | se | | | | | | | | [Enzyma | | | | | [facility] | | | tic | | | | | [place] | | | activit | | | | | | | | y/volum | | | | | | | | e] in | | | | | | | | Serum | | | | | | | | or | | | | | | | | Plasma | | | | | | | +---------+---------+---------+---------+---------+---------+---------+ | Alkalin | 92 U/L | 40-142 | | | Healths | | | e | | | | | tar | | | phospha | | | | | Physici | | | tase | | | | | ans Hot | | | [Enzyma | | | | | | | | tic | | | | | [facility] | | | activit | | | | | Sadaf | | | y/volum | | | | | | | | e] in | | | | | | | | Serum | | | | | | | | or | | | | | | | | Plasma | | | | | | | +---------+---------+---------+---------+---------+---------+---------+ | Bilirub | 0.5 | <=1.2 | | | Healths | | | in.tota | mg/dL | | | | tar | | | l | | | | | Physici | | | [Mass/v | | | | | ans Hot | | | olume] | | | | | | | | in | | | | | [facility] | | | Serum | | | | | [place] | | | or | | | | | | | | Plasma | | | | | | | +---------+---------+---------+---------+---------+---------+---------+ | Glomeru | 22 | | Low | | Healths | | | lar | mL/min/ | | | | tar | | | filtrat | 1.73m'2 | | | | Physici | | | ion | | | | | ans Hot | | | rate/1. | | | | | | | | 73 sq M | | | | | [facility]an | | | | | | | | Sadaf | | | predict | | | | | | | | ed | | | | | | | | among | | | | | | | | non-richard | | | | | | | | cks | | | | | | | | [Volume | | | | | | | | | | | | | | | | Rate/Ar | | | | | | | | ea] in | | | | | | | | Serum | | | | | | | | or | | | | | | | | Plasma | | | | | | | | by | | | | | | | | Creatin | | | | | | | | ine-bas | | | | | | | | ed | | | | | | | | formula | | | | | | | | (MDRD) | | | | | | | +---------+---------+---------+---------+---------+---------+---------+ | Glomeru | 25 | | Low | | Healths | | | lar | mL/min/ | | | | tar | | | filtrat | 1.73m'2 | | | | Physici | | | ion | | | | | ans Hot | | | rate/1. | | | | | | | | 73 sq M | | | | | Regan | | | | | | | | Sadaf | | | predict | | | | | | | | ed | | | | | | | | among | | | | | | | | blacks | | | | | | | | [Volume | | | | | | | | | | | | | | | | Rate/Ar | | | | | | | | ea] in | | | | | | | | Serum | | | | | | | | or | | | | | | | | Plasma | | | | | | | | by | | | | | | | | Creatin | | | | | | | | ine-bas | | | | | | | | ed | | | | | | | | formula | | | | | | | | (MDRD) | | | | | | | +---------+---------+---------+---------+---------+---------+---------+ + + | ESTIMATED GFR (CALCULATED) REF RANGE: > OR = 60 mL/min/1.73M'2 | + + + + + + | ID | Date | Data Source | + + + + | [id number] | 02/16/2018 06:52:00 | [facility] | | [id number] | PM CDT | [place] | + + + + +---------+-------+-------+---------+---------+---------+---------+ | Name | Value | Range | Interpr | Descrip | Data | Support | | | | | etation | tion | Source( | ing | | | | | Code | | s) | Documen | | | | | | | | t(s) | +---------+-------+-------+---------+---------+---------+---------+ | HGB A1C | 7.9 % | <6.0 | | | Healths | | | | | | | | tar | | | | | | | | Physici | | | | | | | | ans Hot | | | | | | | | | | | | | | | | [facility] | | | | | | | | [place] | | +---------+-------+-------+---------+---------+---------+---------+ + + + + | ID | Date | Data Source | + + + + | [id number] | 02/16/2018 01:00:00 | [facility] | | [id number] | AM CDT | [place] | + + + + +---------+---------+---------+---------+---------+---------+---------+ | Name | Value | Range | Interpr | Descrip | Data | Support | | | | | etation | tion | Source( | ing | | | | | Code | | s) | Documen | | | | | | | | t(s) | +---------+---------+---------+---------+---------+---------+---------+ | GLUCOSE | 260 | 70-105 | High | | Healths | | | | mg/dl | | | | tar | | | | | | | | Physici | | | | | | | | ans Hot | | | | | | | | | | | | | | | | [facility] | | | | | | | | [facility] | | +---------+---------+---------+---------+---------+---------+---------+ | UREA | 57 | 9.8-20. | High | | Healths | | | NITROGE | mg/dl | 1 | | | tar | | | N (BUN) | | | | | Physici | | | | | | | | ans Hot | | | | | | | | | | | | | | | | [facility] | | | | | | | | [place] | | +---------+---------+---------+---------+---------+---------+---------+ | CREATIN | 2.72 | 0.57-1. | High | | Healths | | | INE | mg/dl | 11 | | | tar | | | | | | | | Physici | | | | | | | | ans Hot | | | | | | | | | | | | | | | | [facility] | | | | | | | | [facility] | | +---------+---------+---------+---------+---------+---------+---------+ | GFR-NON | 17 | >60 | Low | | Healths | | | | ml/min/ | | | | tar | | | | 1.73m2 | | | | Physici | | | | | | | | ans Hot | | | LOUIE | | | | | | | | N | | | | | [facility] | | | | | | | | [place] | | +---------+---------+---------+---------+---------+---------+---------+ + + | Abnormal Results- Chronic Kidney Disease: <60ml/min/1.73m2. Kidney | | Failure: <15ml/min/1.73m2. | + + +---------+---------+-----+-----+---+---------+---+ | GFR-AFR | 21 | >60 | Low | | Healths | | | ICAN | ml/min/ | | | | tar | | | LOUIE | 1.73m2 | | | | Physici | | | N | | | | | ans Hot | | | | | | | | | | | | | | | | [facility] | | | | | | | | [facility] | | +---------+---------+-----+-----+---+---------+---+ + + | Abnormal Results- Chronic Kidney Disease: <60ml/min/1.73m2. Kidney | | Failure: <15ml/min/1.73m2.The estimated GFR is obtained using the | | modified MDRDStudy equation. The MDRD Study equation has not | | beenvalidated for use with the elderly (over 70 yrs ofage), | | women, patients with serious comorbidconditions, or persons with | | extremes of body size,muscle mass or nutritional status. | + + +---------+-------+---------+------+---+---------+---+ | BUN/CRE | 21.0 | 8-20 | High | | Healths | | | ATININE | | | | | tar | | | RATIO | | | | | Physici | | | | | | | | ans Hot | | | | | | | | | | | | | | | | [facility] | | | | | | | | [facility] | | +---------+-------+---------+------+---+---------+---+ | SODIUM | 134 | 136-145 | Low | | Healths | | | | meq/L | | | | tar | | | | | | | | Physici | | | | | | | | ans Hot | | | | | | | | | | | | | | | | Regan | | | | | | | | [facility] | | +---------+-------+---------+------+---+---------+---+ | POTASSI | 4.9 | 3.5-5.1 | | | Healths | | | UM | meq/L | | | | tar | | | | | | | | Physici | | | | | | | | ans Hot | | | | | | | | | | | | | | | | [facility] | | | | | | | | [facility] | | +---------+-------+---------+------+---+---------+---+ | CHLORID | 98 | 98-107 | | | Healths | | | E | meq/L | | | | tar | | | | | | | | Physici | | | | | | | | ans Hot | | | | | | | | | | | | | | | | Regan | | | | | | | | [facility] | | +---------+-------+---------+------+---+---------+---+ | CARBON | 25.0 | 22-29 | | | Healths | | | DIOXIDE | meq/L | | | | tar | | | | | | | | Physici | | | | | | | | ans Hot | | | | | | | | | | | | | | | | [facility] | | | | | | | | [place] | | +---------+-------+---------+------+---+---------+---+ | CALCIUM | 8.8 | 8.4-10. | | | Healths | | | | mg/dl | 2 | | | tar | | | | | | | | Physici | | | | | | | | ans Hot | | | | | | | | | | | | | | | | [facility] | | | | | | | | [place] | | +---------+-------+---------+------+---+---------+---+ + + + + | ID | Date | Data Source | + + + + | [id number] | 02/16/2018 01:00:00 | [facility] | | [id number] | AM CDT | [place] | + + + + +---------+---------+---------+---------+---------+---------+---------+ | Name | Value | Range | Interpr | Descrip | Data | Support | | | | | etation | tion | Source( | ing | | | | | Code | | s) | Documen | | | | | | | | t(s) | +---------+---------+---------+---------+---------+---------+---------+ | GLUCOSE | 260 | 70-105 | High | | Healths | | | | mg/dl | | | | tar | | | | | | | | Physici | | | | | | | | ans Hot | | | | | | | | | | | | | | | | [facility] | | | | | | | | [place] | | +---------+---------+---------+---------+---------+---------+---------+ | UREA | 57 | 9.8-20. | High | | Healths | | | NITROGE | mg/dl | 1 | | | tar | | | N (BUN) | | | | | Physici | | | | | | | | ans Hot | | | | | | | | | | | | | | | | [facility] | | | | | | | | [place] | | +---------+---------+---------+---------+---------+---------+---------+ | CREATIN | 2.72 | 0.57-1. | High | | Healths | | | INE | mg/dl | 11 | | | tar | | | | | | | | Physici | | | | | | | | ans Hot | | | | | | | | | | | | | | | | [facility] | | | | | | | | [place] | | +---------+---------+---------+---------+---------+---------+---------+ | GFR-NON | 17 | >60 | Low | | Healths | | | | ml/min/ | | | | tar | | | | 1.73m2 | | | | Physici | | | | | | | | ans Hot | | | LOUIE | | | | | | | | N | | | | | [facility] | | | | | | | | [place] | | +---------+---------+---------+---------+---------+---------+---------+ + + | Abnormal Results- Chronic Kidney Disease: <60ml/min/1.73m2. Kidney | | Failure: <15ml/min/1.73m2. | + + +---------+---------+-----+-----+---+---------+---+ | GFR-AFR | 21 | >60 | Low | | Healths | | | ICAN | ml/min/ | | | | tar | | | LOUIE | 1.73m2 | | | | Physici | | | N | | | | | ans Hot | | | | | | | | | | | | | | | | [facility] | | | | | | | | [place] | | +---------+---------+-----+-----+---+---------+---+ + + | Abnormal Results- Chronic Kidney Disease: <60ml/min/1.73m2. Kidney | | Failure: <15ml/min/1.73m2.The estimated GFR is obtained using the | | modified MDRDStudy equation. The MDRD Study equation has not | | beenvalidated for use with the elderly (over 70 yrs ofage), | | women, patients with serious comorbidconditions, or persons with | | extremes of body size,muscle mass or nutritional status. | + + +---------+-------+---------+------+---+---------+---+ | BUN/CRE | 21.0 | 8-20 | High | | Healths | | | ATININE | | | | | tar | | | RATIO | | | | | Physici | | | | | | | | ans Hot | | | | | | | | | | | | | | | | [facility] | | | | | | | | [place] | | +---------+-------+---------+------+---+---------+---+ | SODIUM | 134 | 136-145 | Low | | Healths | | | | meq/L | | | | tar | | | | | | | | Physici | | | | | | | | ans Hot | | | | | | | | | | | | | | | | Regan | | | | | | | | [facility] | | +---------+-------+---------+------+---+---------+---+ | POTASSI | 4.9 | 3.5-5.1 | | | Healths | | | UM | meq/L | | | | tar | | | | | | | | Physici | | | | | | | | ans Hot | | | | | | | | | | | | | | | | [facility] | | | | | | | | [facility] | | +---------+-------+---------+------+---+---------+---+ | CHLORID | 98 | 98-107 | | | Healths | | | E | meq/L | | | | tar | | | | | | | | Physici | | | | | | | | ans Hot | | | | | | | | | | | | | | | | [facility] | | | | | | | | [place] | | +---------+-------+---------+------+---+---------+---+ | CARBON | 25.0 | 22-29 | | | Healths | | | DIOXIDE | meq/L | | | | tar | | | | | | | | Physici | | | | | | | | ans Hot | | | | | | | | | | | | | | | | [facility] | | | | | | | | [place] | | +---------+-------+---------+------+---+---------+---+ | CALCIUM | 8.8 | 8.4-10. | | | Healths | | | | mg/dl | 2 | | | tar | | | | | | | | Physici | | | | | | | | ans Hot | | | | | | | | | | | | | | | | [facility] | | | | | | | | [place] | | +---------+-------+---------+------+---+---------+---+ + + + + | ID | Date | Data Source | + + + + | _[id number]_ | 04/28/2017 09:52:30 | [facility] | | | AM CDT | [facility] | | | | [facility] - | | | | [place] | + + + + +---------+-------+---------+---------+---------+---------+---------+ | Name | Value | Range | Interpr | Descrip | Data | Support | | | | | etation | tion | Source( | ing | | | | | Code | | s) | Documen | | | | | | | | t(s) | +---------+-------+---------+---------+---------+---------+---------+ | PHOSPHO | 4.6 | 2.5-4.5 | Above | | [facility] | | | [facility]MAYA | mg/dL | | high | | | | | | | | normal | | [facility] | | | | | | | | [facility] | | | | | | | | Family | | | | | | | | | | | | | | | | Medicin | | | | | | | | e - | | | | | | | | [place] | | | | | | | | [place] | | +---------+-------+---------+---------+---------+---------+---------+ + + + + | ID | Date | Data Source | + + + + | [id number] | 12/30/2016 10:12:11 | [facility] | | [id number] | AM CDT | [facility] | + + + + + + | HISTORY OF PRESENT ILLNESSfilipe Wong 66 y.o. female presents | | with a Chief Complaint of Diabetes;Hypertension; and Pain (in left | | leg)SubjectiveThe history is provided by the patient.The medical record | | reflects the History of Present Illness as obtained by myselfin | | discussion with the patient.DiabetesOdette presents for her follow-up | | diabetic visit. She has type 2 diabetes mellitus.Her disease course has | | been stable. There are no hypoglycemic associatedsymptoms. Pertinent | | negatives for hypoglycemia include no sweats. Associatedsymptoms | | include foot paresthesias. Pertinent negatives for diabetes include | | noblurred vision, no chest pain and no fatigue. There are no | | hypoglycemiccomplications. Symptoms are stable. Diabetic complications | | include nephropathy,peripheral neuropathy and PVD. Risk factors for | | coronary artery disease includediabetes mellitus, dyslipidemia, | | hypertension and post-menopausal. Currentdiabetic treatment includes | | insulin injections. She is compliant with treatmentmost of the time. | | Her weight is stable. She is following a diabetic diet. Mealplanning | | includes avoidance of concentrated sweets. She participates in | | [employer]. There is no change in her home blood glucose trend. An | | ACEinhibitor/angiotensin II receptor brandie is contraindicated. Eye | | exam is notcurrent.HypertensionThis is a chronic problem. The current | | episode started more than 1 year ago. Theproblem is unchanged. The | | problem is controlled. Pertinent negatives include noblurred vision, | | chest pain, palpitations, peripheral edema, shortness of breathor | | sweats. There are no associated agents to hypertension. Risk factors | | forcoronary artery disease include post-menopausal state, diabetes | | mellitus anddyslipidemia. Past treatments include beta blockers. The | | current treatmentprovides moderate improvement. There are no compliance | | problems. Hypertensiveend-organ damage includes kidney disease and | | PVD. Identifiable causes ofhypertension include chronic renal | | disease.REVIEW OF SYSTEMSReview of SystemsConstitutional: Negative. | | Negative for fatigue.HENT: Negative.Eyes: Negative for blurred | | vision.Respiratory: Negative. Negative for shortness of | | breath.Cardiovascular: Negative. Negative for chest pain and | | palpitations.Gastrointestinal: Negative.Genitourinary: Negative.Skin: | | Negative.Neurological: Negative.Burning pain and aching in left leg | | that was amputated. Has phantom pain.Gabapentin hasn't helped much so | | far.Psychiatric/Behavioral: Negative.ObjectivePHYSICAL EXAMBP 116/70 | | (BP Location: Left arm, Patient Position (BP): Sitting, BP Cuff | | Size:Adult) | Pulse 60 | Temp 97.8 F (36.6 C) (Oral) | Resp 16 | Ht | | 5' 6" (1.676m) | Wt 68 kg (150 lb) | BMI 24.21 kg/m5Krifsrig | | ExamConstitutional: She is oriented to person, place, and time. She | | appearswell-developed and well-nourished. She is cooperative. She does | | not have asickly appearance. She does not appear ill. No | | distress.HENT:Head: Normocephalic and atraumatic.Right Ear: Tympanic | | membrane, external ear and ear canal normal.Left Ear: Tympanic | | membrane, external ear and ear canal normal.Nose: Nose | | normal.Mouth/Throat: Oropharynx is clear and moist. No oropharyngeal | | exudate.Eyes: Conjunctivae are normal. Pupils are equal, round, and | | reactive to light.Right eye exhibits no discharge. Left eye exhibits no | | discharge. No scleralicterus.Neck: Neck supple. No tracheal deviation | | present. No thyromegaly present.Cardiovascular: Normal rate, regular | | rhythm, normal heart sounds and intactdistal pulses.Pulmonary/Chest: | | Effort normal and breath sounds normal. No respiratorydistress. She has | | no wheezes.Abdominal: Soft. She exhibits no distension. There is no | | tenderness. There is noguarding.Musculoskeletal: She exhibits no edema | | or tenderness.Lymphadenopathy:She has no cervical | | adenopathy.Neurological: She is alert and oriented to person, place, | | and time.Skin: Skin is warm and dry. No rash noted. She is not | | diaphoretic. No erythema.No pallor.Psychiatric: She has a normal mood | | and affect.Nursing note and vitals reviewed.AssessmentASSESSMENT and | | PLAN:ICD-10-CM ICD-9-CM1. Type 2 diabetes mellitus with diabetic | | neuropathy, with long-term current useof insulin E11.40 250.60 | | gabapentin (NEURONTIN) 600 mg rbgpisX35.4 357.2V58.672. Arm pain, | | central, left M79.602 729.5 gabapentin (NEURONTIN) 600 mg | | tabletHYDROcodone-acetaminophen (NORCO) 10-325 mg Tablet3. CKD (chronic | | kidney disease) stage 4, GFR 15-29 ml/min N18.4 585.4 CBC | | WITHDIFFERENTIALPHOSPHORUSfurosemide (LASIX) 40 mg tablet4. Essential | | hypertension I10 401.9 CBC WITH DIFFERENTIALPHOSPHORUSfurosemide | | (LASIX) 40 mg tablet5. Phantom pain after amputation of lower extremity | | G54.6 353.6 gabapentin(NEURONTIN) 600 mg | | tabletHYDROcodone-acetaminophen (NORCO) 10-325 mg Tabletwill try | | increasing gabapentin to 1200mg three times daily. | + + +------+-------+-------+---------+---------+---------+---------+ | Name | Value | Range | Interpr | Descrip | Data | Support | | | | | etation | tion | Source( | ing | | | | | Code | | s) | Documen | | | | | | | | t(s) | +------+-------+-------+---------+---------+---------+---------+ | | | | | | | | +------+-------+-------+---------+---------+---------+---------+ + + + + | ID | Date | Data Source | + + + + | [id number] | 12/30/2016 10:06:27 | [facility] | | | AM CDT | [facility] | + + + + + + | Non-Diabetic <6.0 - Diabetic <7.0 - Additional Action Suggested >8 - | | Adapted from ADA | + + +---------+-------+-------+---------+---------+---------+---------+ | Name | Value | Range | Interpr | Descrip | Data | Support | | | | | etation | tion | Source( | ing | | | | | Code | | s) | Documen | | | | | | | | t(s) | +---------+-------+-------+---------+---------+---------+---------+ | HEMOGLO | 6.8 % | <6.0 | Above | | [facility] | | | BIN A1C | | | high | | | | | | | | normal | | [facility] | | | | | | | Hot | | | | | | | | [facility] | | | | | | | | | | | | | | [facility] | | | | | | | | l | | +---------+-------+-------+---------+---------+---------+---------+ | HEMOGLO | 148 | | | | [facility] | | | BIN A1C | mg/dL | | | | | | | EST. | | | | | [facility] | | | AVERAGE | | | | | Hot | | | | | | | | [facility] | | | GLUCOSE | | | | | | | | | | | | | Hospita | | | | | | | | l | | +---------+-------+-------+---------+---------+---------+---------+ + + + + | ID | Date | Data Source | + + + + | [id number] | 12/30/2016 10:06:27 | [facility] | | | AM CDT | [facility] | + + + + + + | TOTAL CHOLESTEROL mg/dLDesirable<200Borderline | | ffsy332-693Zyji>=240TRIGLYCERIDES mg/dLNormal<150Borderline | | cbfx331-216Sqzg792-555Zwdu high>=500HDL CHOLESTEROL | | mg/dLLow<18Sdhwja28-73Nqwchicjz>=60NON HDL CHOLESTEROL | | mg/dLOptimal<130Near Oxjtbyo540-183Uwntkuexax Rpxh478-158Cxud | | High>=190Calculated LDL mg/dLOptimal<100Near Flerjlj111-966Wpzfkyrrsl | | Dctg734-356Ednp839-150Brum High>=190ATPIII Guidelines Reference Ranges | | for Lipid Panels (NCEP/AMA) | + + +---------+-------+-------+---------+---------+---------+---------+ | Name | Value | Range | Interpr | Descrip | Data | Support | | | | | etation | tion | Source( | ing | | | | | Code | | s) | Documen | | | | | | | | t(s) | +---------+-------+-------+---------+---------+---------+---------+ | CHOLEST | 84 | <200 | | | [facility] | | | COLEMAN | mg/dL | | | | | | | | | | | | [facility] | | | | | | | | Hot | | | | | | | | [facility] | | | | | | | | | | | | | | | [facility]ospita | | | | | | | | l | | +---------+-------+-------+---------+---------+---------+---------+ | TRIGLYC | 77 | <150 | | | [facility] | | | ERIDE | mg/dL | | | | | | | | | | | | [facility] | | | | | | | Hot | | | | | | | | [facility] | | | | | | | | | | | | | | | [facility] | | | | | | | | l | | +---------+-------+-------+---------+---------+---------+---------+ | HDL | 44 | 40-59 | | | [facility] | | | | mg/dL | | | | | | | | | | | | [facility] | | | | | | | | Hot | | | | | | | | [facility] | | | | | | | | | | | | | | | [facility] | | | | | | | | l | | +---------+-------+-------+---------+---------+---------+---------+ | LDL | 25 | <100 | | | [facility] | | | CALCULA | mg/dL | | | | | | | BRUNO | | | | | [facility] | | | | | | | | Hot | | | | | | | | [facility] | | | | | | | | | | | | | | | | [facility] | | | | | | | | l | | +---------+-------+-------+---------+---------+---------+---------+ | NON-HDL | 40 | <130 | | | [facility] | | | | mg/dL | | | | | | | CHOLEST | | | | | [facility] | | | [facility] | | | | | Hot | | | | | | | | [facility] | | | | | | | | | | | | | | | | [facility]ospita | | | | | | | | l | | +---------+-------+-------+---------+---------+---------+---------+ + + + + | ID | Date | Data Source | + + + + | [id number] | 12/30/2016 10:06:27 | [facility] | | | AM CDT | [facility] | + + + + + + | TOTAL CHOLESTEROL mg/dLDesirable<200Borderline | | tgrj530-587Ital>=240TRIGLYCERIDES mg/dLNormal<150Borderline | | xclw616-688Wvel000-581Ryox high>=500HDL CHOLESTEROL | | mg/dLLow<42Jzykok84-27Etwyliooa>=60NON HDL CHOLESTEROL | | mg/dLOptimal<130Near Ffshewc128-095Flrsdhivsb Saih675-993Ljyk | | High>=190Calculated LDL mg/dLOptimal<100Near Smsqprz578-222Kmheoailmv | | Tlea757-466Epjc277-106Lmtw High>=190ATPIII Guidelines Reference Ranges | | for Lipid Panels (NCEP/AMA) | + + +---------+---------+---------+---------+---------+---------+---------+ | Name | Value | Range | Interpr | Descrip | Data | Support | | | | | etation | tion | Source( | ing | | | | | Code | | s) | Documen | | | | | | | | t(s) | +---------+---------+---------+---------+---------+---------+---------+ | SODIUM | 137 | 137-145 | | | [facility] | | | | mmol/L | | | | | | | | | | | | [facility] | | | | | | | | Hot | | | | | | | | [facility] | | | | | | | | | | | | | | | [facility] | | | | | | | | l | | +---------+---------+---------+---------+---------+---------+---------+ | POTASSI | 4.2 | 3.4-5.3 | | | [facility] | | | UM | mmol/L | | | | | | | | | | | | [facility] | | | | | | | | Hot | | | | | | | | [facility] | | | | | | | | | | | | | | | [facility]ospita | | | | | | | | l | | +---------+---------+---------+---------+---------+---------+---------+ | CHLORID | 97 | 97-107 | | | [facility] | | | E | mmol/L | | | | | | | | | | | | [facility] | | | | | | | | Hot | | | | | | | | [facility] | | | | | | | | | | | | | | | [facility] | | | | | | | | l | | +---------+---------+---------+---------+---------+---------+---------+ | CO2 | 27 | 22-30 | | | [facility] | | | | mmol/L | | | | | | | | | | | | [facility] | | | | | | | | Hot | | | | | | | | [facility] | | | | | | | | | | | | | | | [facility] | | | | | | | | l | | +---------+---------+---------+---------+---------+---------+---------+ | CALCIUM | 8.8 | 8.4-10. | | | [facility] | | | | mg/dL | 3 | | | | | | | | | | | [facility] | | | | | | | Hot | | | | | | | | [facility] | | | | | | | | | | | | | | | [facility] | | | | | | | | l | | +---------+---------+---------+---------+---------+---------+---------+ | BUN | 34 | 9-20 | Above | | [facility] | | | | mg/dL | | high | | | | | | | | normal | | [facility] | | | | | | | | Hot | | | | | | | | [facility] | | | | | | | | | | | | | | | | [facility] | | | | | | | | l | | +---------+---------+---------+---------+---------+---------+---------+ | CREATIN | 1.80 | 0.50-1. | Above | | [facility] | | | INE | mg/dL | 50 | high | | | | | | | | normal | | [facility] | | | | | | | | Hot | | | | | | | | [facility] | | | | | | | | | | | | | | | | [facility] | | | | | | | | l | | +---------+---------+---------+---------+---------+---------+---------+ | GLUCOSE | 94 | 75-110 | | | [facility] | | | | mg/dL | | | | | | | | | | | | [facility] | | | | | | | | Hot | | | | | | | | [facility] | | | | | | | | | | | | | | | [facility] | | | | | | | | l | | +---------+---------+---------+---------+---------+---------+---------+ | TOTAL | 6.4 | 6.3-8.2 | | | [facility] | | | PROTEIN | g/dL | | | | | | | | | | | | [facility] | | | | | | | | Hot | | | | | | | | [facility] | | | | | | | | | | | | | | | [facility] | | | | | | | | l | | +---------+---------+---------+---------+---------+---------+---------+ | ALBUMIN | 3.7 | 3.5-5.1 | | | [facility] | | | | g/dL | | | | | | | | | | | | [facility] | | | | | | | | Hot | | | | | | | | [facility] | | | | | | | | | | | | | | | [facility] | | | | | | | | l | | +---------+---------+---------+---------+---------+---------+---------+ | BILIRUB | 0.7 | 0.2-1.2 | | | [facility] | | | IN | mg/dL | | | | | | | TOTAL | | | | | [facility] | | | | | | | | Hot | | | | | | | | [facility] | | | | | | | | | | | | | | | [facility] | | | | | | | | l | | +---------+---------+---------+---------+---------+---------+---------+ | ALKALIN | 103 U/L | 38-126 | | | [facility] | | | E | | | | | | | | PHOSPHA | | | | | [facility] | | | TASE | | | | | Hot | | | | | | | | [facility] | | | | | | | | | | | | | | | | [facility]ospita | | | | | | | | l | | +---------+---------+---------+---------+---------+---------+---------+ | AST | 18 U/L | 17-59 | | | [facility] | | | | | | | | | | | | | | | | [facility] | | | | | | | | Hot | | | | | | | | [facility] | | | | | | | | | | | | | | | | [facility] | | | | | | | | l | | +---------+---------+---------+---------+---------+---------+---------+ | ALT | 30 U/L | 21-72 | | | [facility] | | | | | | | | | | | | | | | | [facility] | | | | | | | | Hot | | | | | | | | [facility] | | | | | | | | | | | | | | | | [facility] | | | | | | | | l | | +---------+---------+---------+---------+---------+---------+---------+ | GFR | 28 | >=60 | Below | | [facility] | | | | mL/min/ | | low | | | | | | 1.73 sq | | normal | | [facility] | | | | meter | | | | Hot | | | | | | | | [facility] | | | | | | | | | | | | | | | | [facility]ospita | | | | | | | | l | | +---------+---------+---------+---------+---------+---------+---------+ + + | eGFR has not been validated for use in the elderly (> 70 years of age), | | women, patients with serious co-morbid conditions, or persons | | with extremes of body size or muscle mass and should also be | | interpreted with caution in patients with acute kidney failure, | | dialysis dependent patients, patients reporting exceptional dietary | | intake (e.g. vegetarian diet, high protein diets, creatine | | supplementation), and patients with severe liver disease. Based on | | National Kidney Disease Education Program If patient is | | [place], please refer to the GFR result. | + + +---------+---------+------+--------+---+---------+---+ | GFR, | 34 | >=60 | Below | | [facility] | | | | mL/min/ | | low | | | | | | 1.73 sq | | normal | | [facility] | | | LOUIE | meter | | | | Hot | | | N | | | | | [facility] | | | | | | | | | | | | | | | | [facility]ospita | | | | | | | | l | | +---------+---------+------+--------+---+---------+---+ | ANION | 13 | 7-16 | | | [facility] | | | GAP | mmol/L | | | | | | | | | | | | [facility] | | | | | | | | Hot | | | | | | | | [facility] | | | | | | | | | | | | | | | [facility] | | | | | | | | l | | +---------+---------+------+--------+---+---------+---+ + + + + | ID | Date | Data Source | + + + + | [id number] | 12/30/2016 10:06:27 | [facility] | | | AM CDT | [facility] | + + + + + + | TOTAL CHOLESTEROL mg/dLDesirable<200Borderline | | ofev891-463Ycdu>=240TRIGLYCERIDES mg/dLNormal<150Borderline | | zgnj619-576Irbm076-682Qwpt high>=500HDL CHOLESTEROL | | mg/dLLow<22Wpijhl48-10Yqffuavdl>=60NON HDL CHOLESTEROL | | mg/dLOptimal<130Near Ekclrqy875-191Wioxuhjdbf Czjn793-027Amva | | High>=190Calculated LDL mg/dLOptimal<100Near Baulpnq991-008Nrdpoiuruj | | Iygv726-664Ioaf708-253Gjuz High>=190ATPIII Guidelines Reference Ranges | | for Lipid Panels (NCEP/AMA) | + + +---------+-------+---------+---------+---------+---------+---------+ | Name | Value | Range | Interpr | Descrip | Data | Support | | | | | etation | tion | Source( | ing | | | | | Code | | s) | Documen | | | | | | | | t(s) | +---------+-------+---------+---------+---------+---------+---------+ | PHOSPHO | 4.8 | 2.5-4.5 | Above | | [facility] | | | AMAYA | mg/dL | | high | | | | | | | | normal | | [facility] | | | | | | | | Hot | | | | | | | | [facility] | | | | | | | | | | | | | | | | [facility]ospita | | | | | | | | l | | +---------+-------+---------+---------+---------+---------+---------+ + + + + | ID | Date | Data Source | + + + + | [id number] | 12/17/2016 02:43:40 | [facility] | | [id number] | PM CDT | [facility] | + + + + + + | Letter mailed | + + +------+-------+-------+---------+---------+---------+---------+ | Name | Value | Range | Interpr | Descrip | Data | Support | | | | | etation | tion | Source( | ing | | | | | Code | | s) | Documen | | | | | | | | t(s) | +------+-------+-------+---------+---------+---------+---------+ | | | | | | | | +------+-------+-------+---------+---------+---------+---------+ + + + + | ID | Date | Data Source | + + + + | [id number] | 12/17/2016 01:52:59 | [facility] | | [id number] | PM CDT | [facility] | + + + + + + | Attempted to call---no answer | + + +------+-------+-------+---------+---------+---------+---------+ | Name | Value | Range | Interpr | Descrip | Data | Support | | | | | etation | tion | Source( | ing | | | | | Code | | s) | Documen | | | | | | | | t(s) | +------+-------+-------+---------+---------+---------+---------+ | | | | | | | | +------+-------+-------+---------+---------+---------+---------+ + + + + | ID | Date | Data Source | + + + + | [id number] | 12/15/2016 06:17:05 | [facility] | | [id number] | PM CDT | [facility] | + + + + + + | Attempted to call---no answer | + + +------+-------+-------+---------+---------+---------+---------+ | Name | Value | Range | Interpr | Descrip | Data | Support | | | | | etation | tion | Source( | ing | | | | | Code | | s) | Documen | | | | | | | | t(s) | +------+-------+-------+---------+---------+---------+---------+ | | | | | | | | +------+-------+-------+---------+---------+---------+---------+ + + + + | ID | Date | Data Source | + + + + | [id number] | 12/15/2016 04:24:17 | [facility] | | [id number] | PM CDT | [facility] | + + + + + + | She was supposed to come back for her lab work. Please ask her to come | | in fordiIntoloop labs to be drawn. | + + +------+-------+-------+---------+---------+---------+---------+ | Name | Value | Range | Interpr | Descrip | Data | Support | | | | | etation | tion | Source( | ing | | | | | Code | | s) | Documen | | | | | | | | t(s) | +------+-------+-------+---------+---------+---------+---------+ | | | | | | | | +------+-------+-------+---------+---------+---------+---------+ + + + + | ID | Date | Data Source | + + + + | [id number] | 12/12/2016 01:06:30 | [facility] | | [id number] | PM CDT | [facility] | + + + + + + | jame keita called wanting to change insulin quick pen to vial---Ok'ed | + + +------+-------+-------+---------+---------+---------+---------+ | Name | Value | Range | Interpr | Descrip | Data | Support | | | | | etation | tion | Source( | ing | | | | | Code | | s) | Documen | | | | | | | | t(s) | +------+-------+-------+---------+---------+---------+---------+ | | | | | | | | +------+-------+-------+---------+---------+---------+---------+ + + + + | ID | Date | Data Source | + + + + | [id number] | 10/22/2016 12:34:43 | [facility] | | [id number] | PM CDT | [facility] | + + + + + + | HISTORY OF PRESENT ILLNESSAndie Bean, a 66 y.o. female presents | | with a Chief Complaint of Diabetes andHand Pain (left arm)SubjectiveThe | | history is provided by the patient.The medical record reflects the | | History of Present Illness as obtained by myselfin discussion with the | | patient.Alondra presents for her follow-up diabetic visit. She has | | type 2 diabetes mellitus.Her disease course has been improving. There | | are no hypoglycemic associatedsymptoms. Pertinent negatives for | | diabetes include no blurred vision, no chestpain, no fatigue and no | | foot paresthesias. There are no hypoglycemiccomplications. Symptoms are | | stable. Diabetic complications include peripheralneuropathy. Risk | | factors for coronary artery disease include hypertension,diabetes | | mellitus and dyslipidemia. Current diabetic treatment includes | | insulininjections. She is compliant with treatment most of the time. | | Her weight isstable. She is following a diabetic diet. Her home blood | | glucose trend isdecreasing steadily. An VANESSA inhibitor/angiotensin II | | receptor brandie iscontraindicated.Hand PainLocation: Arm, wrist and | | handInjury: no (dialysis shunt. but had it ballooned it and it is | | doing better.still has pain but not near as bad)Associated symptoms: no | | fatigueREVIEW OF SYSTEMSReview of SystemsConstitutional: Negative for | | fatigue.Eyes: Negative for blurred vision.Cardiovascular: Negative for | | chest pain.ObjectivePHYSICAL EXAMVisit VitalsBP 130/60 (BP Location: | | Left arm, Patient Position (BP): Sitting, BP CuffSize: Adult)Pulse | | 80Temp 98.7 F (37.1 C) (Oral)Resp 16Ht 5' 4" (1.626 m)Wt 62.6 kg (138 | | lb)BMI 23.69 kg/q3Mdleckqk ExamConstitutional: She is oriented to | | person, place, and time. She appearswell-developed and well-nourished. | | She is cooperative. She does not have asickly appearance. She does not | | appear ill. No distress.HENT:Head: Normocephalic and atraumatic.Right | | Ear: Tympanic membrane, external ear and ear canal normal.Left Ear: | | Tympanic membrane, external ear and ear canal normal.Nose: Nose | | normal.Mouth/Throat: Oropharynx is clear and moist. No oropharyngeal | | exudate.Eyes: Conjunctivae are normal. Pupils are equal, round, and | | reactive to light.Right eye exhibits no discharge. Left eye exhibits no | | discharge. No scleralicterus.Neck: Neck supple. No tracheal deviation | | present. No thyromegaly present.Cardiovascular: Normal rate, regular | | rhythm, normal heart sounds and intactdistal pulses.Pulmonary/Chest: | | Effort normal and breath sounds normal. No respiratorydistress. She has | | no wheezes.Abdominal: Soft. She exhibits no distension. There is no | | tenderness. There is noguarding.Musculoskeletal: She exhibits no edema | | or tenderness.Left AKALymphadenopathy:She has no cervical | | adenopathy.Neurological: She is alert and oriented to person, place, | | and time.Skin: Skin is warm and dry. No rash noted. She is not | | diaphoretic. No erythema.No pallor.Psychiatric: She has a normal mood | | and affect.Nursing note and vitals reviewed.AssessmentASSESSMENT and | | PLAN:ICD-10-CM ICD-9-CM1. Pure hypercholesterolemia E78.00 272.0 | | atorvastatin (LIPITOR) 80 mg tablet2. Anxiety state F41.1 300.00 | | ALPRAZolam (XANAX) 0.5 mg tablet3. Arm pain, central, left M79.602 | | 729.5 HYDROcodone-acetaminophen (NORCO)10-325 mg Tablet4. Type 2 | | diabetes mellitus with diabetic neuropathy, with long-term current | | useof insulin E11.40 250.60 HEMOGLOBIN A1CZ79.4 357.2 LIPID YCPWAL79.67 | | COMPREHENSIVE METABOLIC PANEL5. Essential hypertension I10 401.9 | | carvedilol (COREG) 6.25 mg tablet | + + +------+-------+-------+---------+---------+---------+---------+ | Name | Value | Range | Interpr | Descrip | Data | Support | | | | | etation | tion | Source( | ing | | | | | Code | | s) | Documen | | | | | | | | t(s) | +------+-------+-------+---------+---------+---------+---------+ | | | | | | | | +------+-------+-------+---------+---------+---------+---------+ + + + + | ID | Date | Data Source | + + + + | [id number] | 09/25/2016 05:40:37 | [facility] | | [id number] | PM SHEAR GRINDER OPERATOR | [facility] | + + + + + + | Attempted to call---no answer | + + +------+-------+-------+---------+---------+---------+---------+ | Name | Value | Range | Interpr | Descrip | Data | Support | | | | | etation | tion | Source( | ing | | | | | Code | | s) | Documen | | | | | | | | t(s) | +------+-------+-------+---------+---------+---------+---------+ | | | | | | | | +------+-------+-------+---------+---------+---------+---------+ + + + + | ID | Date | Data Source | + + + + | [id number] | 09/23/2016 02:33:39 | [facility] | | [id number] | [facility] | + + + + + + | I haven't filled this in a long time for her. Was her heart doctor | | filling it?I thought they must have stopped it. | + + +------+-------+-------+---------+---------+---------+---------+ | Name | Value | Range | Interpr | Descrip | Data | Support | | | | | etation | tion | Source( | ing | | | | | Code | | s) | Documen | | | | | | | | t(s) | +------+-------+-------+---------+---------+---------+---------+ | | | | | | | | +------+-------+-------+---------+---------+---------+---------+ + + + + | ID | Date | Data Source | + + + + | [id number] | 07/08/2016 04:19:45 | [facility] | | [id number] | PM SHEAR GRINDER OPERATOR | [facility] | + + + + + + | CT ABDOMEN AND PELVIS WITHOUT CONTRAST, 07/08/2016:INDICATION: Right | | flank pain. COMPARISON: None. TECHNIQUE: Routine CT imaging was | | obtained of the abdomen and pelvis without administration of | | contrast.FINDINGS: The lung bases are clear. The heart is normal in | | size. Within the abdomen, evaluation of the solid organs is limited | | with lack of intravenous contrast. No contour abnormalities are | | identified in the liver, pancreas, adrenal glands, kidneys or spleen. | | No evidence of nephroureterolithiasis is identified. Multiple | | phleboliths and arterial calcifications are present in the pelvis | | bilaterally. There is prominent fecal distention of the right colon | | consistent with constipation. There is distention of the transverse | | colon as well. The left colon is decompressed. Aorta and IVC are | | normal in caliber. Small retroperitoneal lymph nodes are noted | | measuring up to 9 millimeters in the periaortic station which are | | nonspecific. The adrenal glands appear mildly hyperplastic without | | definite nodule or mass. Prior cholecystectomy is noted. Within the | | pelvis, the urinary bladder is decompressed. The uterus and rectum are | | unremarkable. Minimal sigmoid diverticulosis is present without | | evidence of diverticulitis. No destructive osseous lesions are noted. | | Transcribed: SY BARTHOLOMEW on ThuJul 08, 2016 12:16:25 PM CSTSigned | | by: Wayne Cuba MD on 07/08/2016 3:19 PM:1. No evidence of | | nephroureterolithiasis identified. Moderate to severe constipation is | | suggested in the right and transverse colon. 2. Prior cholecystectomy | | is noted. UW:trh Preliminary findings below, please refer | | to the final report for further details.No stonesModerate R and | | transverse colon distension c/w constipation Transcribed: SY BARTHOLOMEW | | on ThuJul 08, 2016 12:16:25 PM SHEAR GRINDER OPERATOR | + + +------+-------+-------+---------+---------+---------+---------+ | Name | Value | Range | Interpr | Descrip | Data | Support | | | | | etation | tion | Source( | ing | | | | | Code | | s) | Documen | | | | | | | | t(s) | +------+-------+-------+---------+---------+---------+---------+ | | | | | | | | +------+-------+-------+---------+---------+---------+---------+ + + + + | ID | Date | Data Source | + + + + | [id number] | 07/08/2016 01:10:14 | [facility] | | [id number] | PM SHEAR GRINDER OPERATOR | [facility] | + + + + + + | CT ABDOMEN AND PELVIS WITHOUT CONTRAST, 07/08/2016:INDICATION: Right | | flank pain. COMPARISON: None. TECHNIQUE: Routine CT imaging was | | obtained of the abdomen and pelvis without administration of | | contrast.FINDINGS: The lung bases are clear. The heart is normal in | | size. Within the abdomen, evaluation of the solid organs is limited | | with lack of intravenous contrast. No contour abnormalities are | | identified in the liver, pancreas, adrenal glands, kidneys or spleen. | | No evidence of nephroureterolithiasis is identified. Transcribed: [place], | | SY Hayes on ThuJul 08, 2016 12:16:25 PM SHEAR GRINDER OPERATOR:Preliminary findings | | below, please refer to the final report for further details.No | | stonesModerate R and transverse colon distension c/w | | constipationTranscribed: SY BARTHOLOMEW on ThuJul 08, 2016 12:16:25 PM | | SHEAR GRINDER OPERATOR | + + +------+-------+-------+---------+---------+---------+---------+ | Name | Value | Range | Interpr | Descrip | Data | Support | | | | | etation | tion | Source( | ing | | | | | Code | | s) | Documen | | | | | | | | t(s) | +------+-------+-------+---------+---------+---------+---------+ | | | | | | | | +------+-------+-------+---------+---------+---------+---------+ + + + + | ID | Date | Data Source | + + + + | | 07/08/2016 01:10:14 | [facility] | | [id number] | PM SHEAR GRINDER OPERATOR | [facility] | + + + + + + | CT ABDOMEN AND PELVIS WITHOUT CONTRAST, 07/08/2016:INDICATION: Right | | flank pain. COMPARISON: None. TECHNIQUE: Routine CT imaging was | | obtained of the abdomen and pelvis without administration of | | contrast.FINDINGS: The lung bases are clear. The heart is normal in | | size. Within the abdomen, evaluation of the solid organs is limited | | with lack of intravenous contrast. No contour abnormalities are | | identified in the liver, pancreas, adrenal glands, kidneys or spleen. | | No evidence of nephroureterolithiasis is identified. :Preliminary | | findings below, please refer to the final report for further details.No | | stonesModerate R and transverse colon distension c/w constipation | + + +------+-------+-------+---------+---------+---------+---------+ | Name | Value | Range | Interpr | Descrip | Data | Support | | | | | etation | tion | Source( | ing | | | | | Code | | s) | Documen | | | | | | | | t(s) | +------+-------+-------+---------+---------+---------+---------+ | | | | | | | | +------+-------+-------+---------+---------+---------+---------+ + + + + | ID | Date | Data Source | + + + + | [id number] | 07/08/2016 01:10:14 | [facility] | | [id number] | [facility] | + + + + + + | CT ABDOMEN AND PELVIS WITHOUT CONTRAST, 07/08/2016:INDICATION: Right | | flank pain. COMPARISON: None. TECHNIQUE: Routine CT imaging was | | obtained of the abdomen and pelvis without administration of | | contrast.FINDINGS: The lung bases are clear. The heart is normal in | | size. Within the abdomen, evaluation of the solid organs is limited | | with lack of intravenous contrast. No contour abnormalities are | | identified in the liver, pancreas, adrenal glands, kidneys or spleen. | | No evidence of nephroureterolithiasis is identified. :Preliminary | | findings below, please refer to the final report for further details.No | | stonesModerate R and transverse colon distension c/w constipation | + + +------+-------+-------+---------+---------+---------+---------+ | Name | Value | Range | Interpr | Descrip | Data | Support | | | | | etation | tion | Source( | ing | | | | | Code | | s) | Documen | | | | | | | | t(s) | +------+-------+-------+---------+---------+---------+---------+ | | | | | | | | +------+-------+-------+---------+---------+---------+---------+ + + + + | ID | Date | Data Source | + + + + | [id number] | 07/08/2016 01:10:14 | [facility] | | [id number] | [facility] | + + + + + + | CT ABDOMEN AND PELVIS WITHOUT CONTRAST, 07/08/2016:INDICATION: Right | | flank pain. COMPARISON: None. TECHNIQUE: Routine CT imaging was | | obtained of the abdomen and pelvis without administration of | | contrast.FINDINGS: The lung bases are clear. The heart is normal in | | size. Within the abdomen, evaluation of the solid organs is limited | | with lack of intravenous contrast. No contour abnormalities are | | identified in the liver, pancreas, adrenal glands, kidneys or spleen. | | No evidence of nephroureterolithiasis is identified. :Preliminary | | findings below, please refer to the final report for further details.No | | stonesModerate R and transverse colon distension c/w constipation | + + +------+-------+-------+---------+---------+---------+---------+ | Name | Value | Range | Interpr | Descrip | Data | Support | | | | | etation | tion | Source( | ing | | | | | Code | | s) | Kamaljitumen | | | | | | | | t(s) | +------+-------+-------+---------+---------+---------+---------+ | | | | | | | | +------+-------+-------+---------+---------+---------+---------+ + + + + | ID | Date | Data Source | + + + + | [id number] | 07/08/2016 12:43:06 | [facility] | | [id number] | [facility] | + + + + + + | Preliminary findings below, please refer to the final report for | | further details.No stonesModerate R and transverse colon distension c/w | | constipation | + + +------+-------+-------+---------+---------+---------+---------+ | Name | Value | Range | Interpr | Descrip | Data | Support | | | | | etation | tion | Source( | ing | | | | | Code | | s) | Documen | | | | | | | | t(s) | +------+-------+-------+---------+---------+---------+---------+ | | | | | | | | +------+-------+-------+---------+---------+---------+---------+ + + | Procedure | + + | | + + Social History +---------+ + + + + + | Code | Duration | Value | Status | Descripti | Data | | | | | | on | Source(s) | +---------+ + + + + + | | | DIABETES; | completed | DIABETES; | National | | | 0 | CARDIOVAS | | CARDIOVAS | [facility] | | | 05:10:00 | CULAR | | CULAR | Medical | | | PM SHEAR GRINDER OPERATOR | DISEASE | | DISEASE | Center | | | | | | | ([facility]) | | | | | | | Hospital | +---------+ + + + + + | | | CARDIOVAS | completed | CARDIOVAS | National | | | 0 | CULAR | | CULAR | Park | | | 05:10:00 | DISEASE | | DISEASE | Medical | | | PM SHEAR GRINDER OPERATOR | | | | Center | | | | | | | ([facility]) | | | | | | | Hospital | +---------+ + + + + + | | | LUNG | completed | LUNG | National | | | 0 | DISEASE | | DISEASE | Park | | | 05:10:00 | | | | Medical | | | PM SHEAR GRINDER OPERATOR | | | | Center | | | | | | | ([facility]) | | | | | | | Hospital | +---------+ + + + + + | | | NONE | completed | NONE | National | | | 0 | | | | Park | | | 05:10:00 | | | | Medical | | | PM SHEAR GRINDER OPERATOR | | | | Center | | | | | | | ([facility]) | | | | | | | Hospital | +---------+ + + + + + | | | PENTECOST | completed | PENTECOST | National | | | 0 | [place] | | [place] | Park | | | 05:10:00 | | | | Medical | | | PM SHEAR GRINDER OPERATOR | | | | Center | | | | | | | ([facility]) | | | | | | | Hospital | +---------+ + + + + + | | | N | completed | N | National | | | 0 | | | | Park | | | 05:10:00 | | | | Medical | | | PM SHEAR GRINDER OPERATOR | | | | Center | | | | | | | ([facility]) | | | | | | | Hospital | +---------+ + + + + + | | | TODAY | completed | TODAY | National | | | 0 | | | | Park | | | 05:10:00 | | | | Medical | | | PM SHEAR GRINDER OPERATOR | | | | Center | | | | | | | ([facility]) | | | | | | | Hospital | +---------+ + + + + + | | | CUP | completed | CUP | National | | | 0 | | | | Park | | | 05:10:00 | | | | Medical | | | PM SHEAR GRINDER OPERATOR | | | | Center | | | | | | | ([facility]) | | | | | | | Hospital | +---------+ + + + + + | | | COFFEE | completed | COFFEE | National | | | 0 | | | | Park | | | 05:10:00 | | | | Medical | | | PM SHEAR GRINDER OPERATOR | | | | Center | | | | | | | ([facility]) | | | | | | | Hospital | +---------+ + + + + + | | | Y | completed | Y | National | | | 0 | | | | Park | | | 05:10:00 | | | | Medical | | | PM SHEAR GRINDER OPERATOR | | | | Center | | | | | | | ([facility]) | | | | | | | Hospital | +---------+ + + + + + | | | N | completed | N | National | | | 0 | | | | Park | | | 05:10:00 | | | | Medical | | | PM SHEAR GRINDER OPERATOR | | | | Center | | | | | | | (NP) | | | | | | | Hospital | +---------+ + + + + + | | | N | completed | N | National | | | 0 | | | | Park | | | 05:10:00 | | | | Medical | | | PM SHEAR GRINDER OPERATOR | | | | Center | | | | | | | ([facility]) | | | | | | | Hospital | +---------+ + + + + + | Smoking | | UNK | completed | | National | | | 0 | | | | Park | | | 05:10:00 | | | | Medical | | | PM SHEAR GRINDER OPERATOR | | | | Center | | | | | | | ([facility]) | | | | | | | Hospital | +---------+ + + + + + Vital Signs +-----+------+ + | ID | Date | Data Source | +-----+------+ + | UNK | | | +-----+------+ + + + +-------+ + + + | Name | Value | Range | Interpret | Descripti | Data | | | | | ation | on | Source(s) | | | | | Code | | | + + +-------+ + + + | Oxygen | 96 % | | | 96 % | National | | saturatio | | | | | Park | | n in | | | | | Medical | | Arterial | | | | | Center | | blood by | | | | | ([facility]) | | Pulse | | | | | Hospital | | oximetry | | | | | | + + +-------+ + + + | Heart | 79 /min | | | 79 /min | National | | rate | | | | | Park | | | | | | | Medical | | | | | | | Center | | | | | | | (NP) | | | | | | | Hospital | + + +-------+ + + + | Respirato | 19 /min | | | 19 /min | National | | ry rate | | | | | Park | | | | | | | Medical | | | | | | | Center | | | | | | | (NP) | | | | | | | Hospital | + + +-------+ + + + | Body | 36.6 Catalina | | | 36.6 Catalina | National | | temperatu | | | | | Park | | re | | | | | Medical | | | | | | | Center | | | | | | | ([facility]) | | | | | | | Hospital | + + +-------+ + + + | Body | 97.8 | | | 97.8 | National | | temperatu | [degF] | | | [degF] | Park | | re | | | | | Medical | | | | | | | Center | | | | | | | ([facility]) | | | | | | | Hospital | + + +-------+ + + + | Diastolic | 72 mm[Hg] | | | 72 mm[Hg] | National | | blood | | | | | Park | | pressure | | | | | Medical | | | | | | | Center | | | | | | | (NP) | | | | | | | Hospital | + + +-------+ + + + | Systolic | 151 | | | 151 | National | | blood | mm[Hg] | | | mm[Hg] | Park | | pressure | | | | | Medical | | | | | | | Center | | | | | | | ([facility]) | | | | | | | Hospital | + + +-------+ + + + | Body mass | 28.5 | | | 28.5 | National | | index | kg/m2 | | | kg/m2 | Park | | (BMI) | | | | | Medical | | [Ratio] | | | | | Center | | | | | | | (NP) | | | | | | | Hospital | + + +-------+ + + + | Body | 77.564 kg | | | 77.564 kg | National | | weight | | | | | Park | | | | | | | Medical | | | | | | | Center | | | | | | | ([facility]) | | | | | | | Hospital | + + +-------+ + + + | Body | 171.00 | | | 171.00 | National | | weight | [lb_av] | | | [lb_av] | Park | | | | | | | Medical | | | | | | | Center | | | | | | | ([facility]) | | | | | | | Hospital | + + +-------+ + + + | Body | 65 [in_i] | | | 65 [in_i] | National | | height | | | | | Park | | | | | | | Medical | | | | | | | Center | | | | | | | (NP) | | | | | | | Hospital | + + +-------+ + + + + + + + | ID | Date | Data Source | + + + + | [id number] | 01/26/2017 09:24:41 | [facility] | | | AM CDT | [facility] | | | | Medicine - | | | | [facility] | + + + + + + +-------+ + + + | Name | Value | Range | Interpret | Descripti | Data | | | | | ation | on | Source(s) | | | | | Code | | | + + +-------+ + + + | BODY | 97.8 degF | | | 97.8 degF | [facility] | | TEMPERATU | | | | | [facility] | | RE:TEMP:E | | | | | Clinic | | NCTRFRST: | | | | | Family | | PATIENT:Q | | | | | Medicine | | N | | | | | - | | | | | | | [place] | | | | | | | raman | + + +-------+ + + + | WEIGHT | 2400 oz | | | 2400 oz | [facility] | | | | | [facility] | | | | | | | Clinic | | | | | | | Family | | | | | | | Medicine | | | | | | | - | | | | | | | [place] | | | | | | | raman | + + +-------+ + + + | HEIGHT | 5' 6" ft | | | 5' 6" ft | [facility] | | | | | | | [facility] | | | | | | | Clinic | | | | | | | Family | | | | | | | Medicine | | | | | | | - | | | | | | | [place] | | | | | | | raman | + + +-------+ + + + | BODY | 97.8 degF | | | 97.8 degF | [facility] | | TEMPERATU | | | | | [facility] | | RE:TEMP:E | | | | | Clinic | | NCTRFRST: | | | | | Family | | PATIENT:Q | | | | | Medicine | | N | | | | | - | | | | | | | [place] | | | | | | | raman | + + +-------+ + + + + + + + | ID | Date | Data Source | + + + + | [id number] | 10/22/2016 04:24:00 | [facility] | | | PM CDT | [facility] | | | | Medicine - | | | | [place] | + + + + + + +-------+ + + + | Name | Value | Range | Interpret | Descripti | Data | | | | | ation | on | Source(s) | | | | | Code | | | + + +-------+ + + + | BODY | 97.8 degF | | | 97.8 degF | [facility] | | TEMPERATU | | | | | [facility] | | RE:TEMP:E | | | | | Clinic | | NCTRFRST: | | | | | Family | | PATIENT:Q | | | | | Medicine | | N | | | | | - | | | | | | | [place] | | | | | | | raman | + + +-------+ + + + | WEIGHT | 2400 oz | | | 2400 oz | [facility] | | | | | | | [facility] | | | | | | | Clinic | | | | | | | Family | | | | | | | Medicine | | | | | | | - | | | | | | | [place] | | | | | | | raman | + + +-------+ + + + | HEIGHT | 5' 6" ft | | | 5' 6" ft | [facility] | | | | | | | [facility] | | | | | | | Clinic | | | | | | | Family | | | | | | | Medicine | | | | | | | - | | | | | | | [place] | | | | | | | raman | + + +-------+ + + + | BODY | 97.8 degF | | | 97.8 degF | [facility] | | TEMPERATU | | | | | [facility] | | RE:TEMP:E | | | | | Clinic | | NCTRFRST: | | | | | Family | | PATIENT:Q | | | | | Medicine | | N | | | | | - | | | | | | | [place] | | | | | | | raman | + + +-------+ + + + + + + + | ID | Date | Data Source | + + + + | [id number] | 08/01/2016 07:54:59 | [facility] [place] | | | 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 | Clinics | + + + + +--------+ +-------+ + + + | Name | Value | Range | Interpret | Descripti | Data | | | | | ation | on | Source(s) | | | | | Code | | | +--------+ +-------+ + + + | WEIGHT | 2352 oz | | | 2352 oz | [facility] | | [facility] | | | | | | | [facility]ics | +--------+ +-------+ + + + | HEIGHT | 5' 4" ft | | | 5' 4" ft | [facility] | | | | | [facility] | | | | | | | [facility] | +--------+ +-------+ + + + + + + + | ID | Date | Data Source | + + + + | [id number] | 08/01/2016 07:54:58 | [facility] [place] | | | 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 | [facility] | | | | Medicine - | | | | [place] | + + + + + + +-------+ + + + | Name | Value | Range | Interpret | Descripti | Data | | | | | ation | on | Source(s) | | | | | Code | | | + + +-------+ + + + | BODY | 97.8 degF | | | 97.8 degF | [facility] | | TEM[facility]ATU | | | | | [facility] | | RE:TEMP:E | | | | | Clinic | | NCTRFRST: | | | | | Family | | PATIENT:Q | | | | | Medicine | | N | | | | | - | | | | | | | [place] | | | | | | | raman | + + +-------+ + + + | WEIGHT | 2400 oz | | | 2400 oz | [facility] | | | | | | | [facility] | | | | | | | Clinic | | | | | | | Family | | | | | | | Medicine | | | | | | | - | | | | | | | [place] | | | | | | | raman | + + +-------+ + + + | HEIGHT | 5' 6" ft | | | 5' 6" ft | [facility] | | | | | | | [facility] | | | | | | | Clinic | | | | | | | Family | | | | | | | Medicine | | | | | | | - | | | | | | | [place] | | | | | | | raman | + + +-------+ + + + | BODY | 97.8 degF | | | 97.8 degF | [facility] | | TEMPERATU | | | | | [facility] | | RE:TEMP:E | | | | | Clinic | | NCTRFRST: | | | | | Family | | PATIENT:Q | | | | | Medicine | | N | | | | | - | | | | | | | [place] | | | | | | | raman | + + +-------+ + + + + + + + | ID | Date | Data Source | + + + + | [id number] | 08/01/2016 07:54:47 | [facility] [place] | | | 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 | Clinics | + + + + +--------+ +-------+ + + + | Name | Value | Range | Interpret | Descripti | Data | | | | | ation | on | Source(s) | | | | | Code | | | +--------+ +-------+ + + + | WEIGHT | 2352 oz | | | 2352 oz | [facility] | | | | | | [facility] | | | | | | | [facility]ics | +--------+ +-------+ + + + | HEIGHT | 5' 4" ft | | | 5' 4" ft | [facility] | | | | | [facility] | | | | | | | [facility] | +--------+ +-------+ + + + + + + + | ID | Date | Data Source | + + + + | [id number] | 07/17/2016 06:19:12 | [facility] [place] [facility] | | | 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 | [facility] | + + + + + + +-------+ + + + | Name | Value | Range | Interpret | Descripti | Data | | | | | ation | on | Source(s) | | | | | Code | | | + + +-------+ + + + | WEIGHT | 2272 oz | | | 2272 oz | [facility] | | | | | | [facility] | | | | | | | Hot | | | | | | | [facility] | | | [facility] | + + +-------+ + + + | HEIGHT | 5' 4" ft | | | 5' 4" ft | [facility] | | | | | | | [facility] | | | | | | | Hot | | | | | | | [facility] | | | | | | [facility] | + + +-------+ + + + | OXYGEN | 100 | | | 100 | [facility] | | SAT[facility]ATIO | %{Oxygen} | | | %{Oxygen} | [facility] | | N:MFR:ID: | | | | | Hot | | BLDA:QN:P | | | | | [facility] | | ULSE | | | | | Hospital | | OXIMETRY | | | | | | + + +-------+ + + + | BODY | 97.7 degF | | | 97.7 degF | [facility] | | TEMPERATU | | | | | [facility] | | RE:TEMP:E | | | | | Hot | | NCTRFRST: | | | | | [facility] | | PATIENT:Q | | | | | Hospital | | N | | | | | | + + +-------+ + + + + + + + | ID | Date | Data Source | + + + + | [id number] | 07/04/2016 01:16:05 | [facility] [place] [facility] | | | PM SHEAR GRINDER OPERATOR | [facility] | + + + + + + +-------+ + + + | Name | Value | Range | Interpret | Descripti | Data | | | | | ation | on | Source(s) | | | | | Code | | | + + +-------+ + + + | OXYGEN | 100 | | | 100 | [facility] | | [facility] | %{Oxygen} | | | %{Oxygen} | [facility] | | N:MFR:ID: | | | | | Hot | | BLDA:QN:P | | | | | [facility] | | ULSE | | | | | Hospital | | OXIMETRY | | | | | | + + +-------+ + + + | BODY | 96.6 degF | | | 96.6 degF | [facility] | | TEMPERATU | | | | | [facility] | | RE:TEMP:E | | | | | Hot | | NCTRFRST: | | | | | [facility] | | PATIENT:Q | | | | | Hospital | | N | | | | | | + + +-------+ + + + + + + + | ID | Date | Data Source | + + + + | [id number] | 08/01/2016 07:54:47 | [facility] [place] | | | 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 | Clinics | + + + + +--------+ +-------+ + + + | Name | Value | Range | Interpret | Descripti | Data | | | | | ation | on | Source(s) | | | | | Code | | | +--------+ +-------+ + + + | WEIGHT | 2352 oz | | | 2352 oz | [facility] | | | | [facility] | | | | | [facility] | +--------+ +-------+ + + + | HEIGHT | 5' 4" ft | | | 5' 4" ft | [facility] | | | | | [facility] | | | [facility] | [facility] | +--------+ +-------+ + + + + + + + | ID | Date | Data Source | + + + + | [id number] | 03/26/2017 07:32:39 | [facility] [place] | | | AM CDT | Clinics | + + + + +--------+ +-------+ + + + | Name | Value | Range | Interpret | Descripti | Data | | | | | ation | on | Source(s) | | | | | Code | | | +--------+ +-------+ + + + | WEIGHT | 2352 oz | | | 2352 oz | [facility] | | [facility] | | | | | | | [facility] | +--------+ +-------+ + + + | HEIGHT | 5' 4" ft | | | 5' 4" ft | [facility] | [facility] | | | | [facility] | [facility] | +--------+ +-------+ + + + + + + + | ID | Date | Data Source | + + + + | [id number] | 07/30/2016 12:18:26 | [facility] [place] [facility] | | | PM SHEAR GRINDER OPERATOR | [facility] | + + + + + + +-------+ + + + | Name | Value | Range | Interpret | Descripti | Data | | | | | ation | on | Source(s) | | | | | Code | | | + + +-------+ + + + | WEIGHT | 2272 oz | | | 2272 oz | [facility] | | | | | [facility] | | | | | | | [facility] | | | | | | | [facility] | | [facility] | + + +-------+ + + + | HEIGHT | 5' 4" ft | | | 5' 4" ft | [facility] | | | | | | | [facility] | | | | | | | Hot | | | | | | | [facility] | | | | | [facility] | + + +-------+ + + + | OXYGEN | 99 | | | 99 | [facility] | | [facility] | %{Oxygen} | | | %{Oxygen} | [facility] | | N:MFR:ID: | | | | | Hot | | BLDA:QN:P | | | | | [facility] | | ULSE | | | | | Hospital | | OXIMETRY | | | | | | + + +-------+ + + + | BODY | 97.3 degF | | | 97.3 degF | [facility] | | TEMPERATU | | | | | [facility] | | RE:TEMP:E | | | | | Hot | | NCTRFRST: | | | | | [facility] | | PATIENT:Q | | | | | Hospital | | N | | | | | | + + +-------+ + + + Patient Treatment Plan of Care + + +---------+ + + | Planned | Planned | Details | Description | Data | | Activity | Date | | | Source(s) | + + +---------+ + + | Pentoxifyll | | | | National | | ine | | | | [facility] | | (Trental) | | | | Medical | | 400 MG | | | | Center | | TABLET.SA | | | | (NP) | | | | | | Hospital | + + +---------+ + + | Lisinopril | | | | National | | (Prinivil) | | | | Park | | 20 MG | | | | Medical | | TABLET | | | | Center | | | | | | (NP) | | | | | | Hospital | + + +---------+ + + | Isosorbide | | | | National | | Dinitrate | | | | Park | | 30 MG | | | | Medical | | TABLET | | | | Center | | | | | | ([facility]) | | | | | | Hospital | + + +---------+ + + | Insulin | | | | National | | Lispro | | | | Park | | Prt/Lispro | | | | Medical | | (HumaLOG | | | | Center | | 50/50 | | | | ([facility]) | | Kwikpen) 3 | | | | Hospital | | ML | | | | | | INSULN.PEN | | | | | + + +---------+ + + | Insulin | | | | National | | [facility] Krishnamurthy | | | | Park | | m.[email or web address] | | | | Medical | | ([facility]) | | | | Center | | 100 | | | | ([facility]) | | UNITS/ML | | | | Hospital | | UNIT | | | | | + + +---------+ + + | Hydrocodone | | | | National | | | | | | Park | | Bit/Acetami | | | | Medical | | nophen | | | | Center | | 10-325 | | | | ([facility]) | | ([facility] | | | | Hospital | | 10-325 | | | | | | Tablet) 1 | | | | | | TAB TABLET | | | | | + + +---------+ + + | Gabapentin | | | | National | | (Neurontin) | | | | Park | | 600 MG | | | | Medical | | TABLET | | | | Center | | | | | | ([facility]) | | | | | | Hospital | + + +---------+ + + | Furosemide | | | | National | | 40 MG | | | | Park | | TABLET | | | | Medical | | | | | | Center | | | | | | ([facility]) | | | | | | Hospital | + + +---------+ + + | Carvedilol | | | | National | | (Coreg) | | | | Park | | 6.25 MG | | | | Medical | | TABLET | | | | Center | | | | | | ([facility]) | | | | | | Hospital | + + +---------+ + + | Atorvastati | | | | National | | n (Lipitor) | | | | Park | | 80 MG | | | | Medical | | TABLET | | | | Center | | | | | | ([facility]) | | | | | | Hospital | + + +---------+ + + | ALPRAZolam | | | | National | | (Xanax) 0.5 | | | | Park | | MG TABLET | | | | Medical | | | | | | Center | | | | | | ([facility]) | | | | | | Hospital | + + +---------+ + + | Pentoxifyll | | | | National | | ine | | | | Park | | (Trental) | | | | Medical | | 400 MG | | | | Center | | TABLET.SA | | | | ([facility]) | | | | | | Hospital | + + +---------+ + + | Lisinopril | | | | National | | (Prinivil) | | | | Park | | 20 MG | | | | Medical | | TABLET | | | | Center | | | | | | ([facility]) | | | | | | Hospital | + + +---------+ + + | Isosorbide | | | | National | | Dinitrate | | | | Park | | 30 MG | | | | Medical | | TABLET | | | | Center | | | | | | ([facility]) | | | | | | Hospital | + + +---------+ + + | Insulin | | | | National | | Lispro | | | | Park | | Prt/Lispro | | | | Medical | | (HumaLOG | | | | Center | | 50/50 | | | | ([facility]) | | Kwikpen) 3 | | | | Hospital | | ML | | | | | | INSULN.PEN | | | | | + + +---------+ + + | Insulin | | | | National | | GlarginMiah turner | | | | Park | | m.rec.anlog | | | | Medical | | (LANTUS) | | | | Center | | 100 | | | | ([facility]) | | UNITS/ML | | | | Hospital | | UNIT | | | | | + + +---------+ + + | Hydrocodone | | | | National | | | | | | Park | | Bit/Acetami | | | | Medical | | nophen | | | | Center | | 10-325 | | | | ([facility]) | | ([facility] | | | | Hospital | | 10-325 | | | | | | Tablet) 1 | | | | | | TAB TABLET | | | | | + + +---------+ + + | Gabapentin | | | | National | | (Neurontin) | | | | Park | | 600 MG | | | | Medical | | TABLET | | | | Center | | | | | | ([facility]) | | | | | | Hospital | + + +---------+ + + | Furosemide | | | | National | | 40 MG | | | | Park | | TABLET | | | | Medical | | | | | | Center | | | | | | ([facility]) | | | | | | Hospital | + + +---------+ + + | Carvedilol | | | | National | | (Coreg) | | | | Park | | 6.25 MG | | | | Medical | | TABLET | | | | Center | | | | | | ([facility]) | | | | | | Hospital | + + +---------+ + + | Atorvastati | | | | National | | n (Lipitor) | | | | Park | | 80 MG | | | | Medical | | TABLET | | | | Center | | | | | | ([facility]) | | | | | | Hospital | + + +---------+ + + | ALPRAZolam | | | | National | | (Xanax) 0.5 | | | | Park | | MG TABLET | | | | Medical | | | | | | Center | | | | | | ([facility]) | | | | | | Hospital | + + +---------+ + +
--- NOTE | 2019-10-06 11:42 | NUR ---
I have reviewed this patient and I concur with the Shift Assessment completed by the Licensed Practical Nurse today this shift.
--- NOTE | 2019-10-06 12:48 | NUR ---
CLINICAL UPDATES FAXED TO [facility], LAURA CABRERA , AUTH. # [id number] WITH CONFORMATION RECIEVED. WILL CONTINUE TO FOLLOW WITH PATIENT . TENATIVE DISCHARGE DATE IS 10/07/19.
[2019-10-06 19:34] VITALS: BP 139/69
--- NOTE | 2019-10-06 20:11 | NUR ---
AWAKE AND ALERT. SITTING IN WHEELCHAIR IN ROOM. REMAINS IN CONTACT ISOLATION. LEFT AKA AND RIGHT LEG HAS DRESSINGS INTACT FOR BLISTERS AND WEEPING. NO DISTRESS NOTED. CALL LIGHT IN REACH.
--- NOTE | 2019-10-07 01:02 | NUR ---
CONTINUES SLEEPING WITH RESPIRATIONS UNLABORED. NO DISTRESS NOTED. CALL LIGHT IN REACH.
--- NOTE | 2019-10-07 03:00 | NUR ---
REQUESTED THAT BLOOD SUGAR BE CHECKED BECAUSE SHE FELT BAD. FSBS 176. ALERT AND ORIENTED, SKIN WARM AND DRY. RESPIRATIONS UNLABORED. GAVE HER 8 OUNCES OF ORANGE JUICE. INSTRUCTED HER TO CALL ME AGAIN IF SHE DIDNT FEEL BETTER IN A FEW MINUTES. SHE VOICED UNDERSTANDING.
--- NOTE | 2019-10-07 05:20 | NUR ---
QUIET HOURS. NO FURTHER C/O DISCOMFORTS. RESPIRATIONS UNLABORED. NO DISTRESS NOTED. CALL LIGHT IN REACH.
[2019-10-07 06:20] LABS: BASOPHILS 0.6 % (0-2); EOSINOPHILS 3.6 % (0-7); HEMATOCRIT 31.1 % (36.0-48.0); IMMATURE GRANULOCYTES 0.2 % (0-5); LYMPHOCYTES 14.4 % (15-50); MCH 29.8 pg (26.0-34.0); MCHC 32.2 g/dL (31.0-37.0); MCV 92.6 fL (80.0-100.0); MEAN PLATELET VOLUME 11.7 fL (7.4-10.4); MONOCYTES 12.1 % (2-11); NEUTROPHILS 69.1 % (40-80); PLATELET COUNT 195 10x3/uL (130-400); RBC 3.36 10x6/uL (4.00-5.40); RDW 14.4 % (11.5-14.5); WBC 4.9 10x3/uL (4.8-10.8)
[2019-10-07 06:33] LABS: CALCIUM 8.2 mg/dL (8.5-10.1); CREATININE - SERUM 4.2 mg/dL (0.6-1.3)
--- NOTE | 2019-10-07 08:00 | NUR ---
PT RESTING IN BED WITH EYES OPEN CALL LIGHT IN REACH WILL MONITER
[2019-10-07 08:26] VITALS: BP 103/55
--- NOTE | 2019-10-07 09:48 | NUR ---
PATIENT DISCHARGING HOME TODAY WITH FAMILY. [facility] WILL PROVIDE THERAPY AT HOME. NO COMPARE DATA REVIEWED PATIENT IS A CLIENT OF ELITE AND VOICES UNDERSTANDING. [facility] FORM SIGNED AND EXPLAINED ONE GIVEN TO PATIENT AND ONE FILED IN CHART.DR. RHOADES/ALEXIA @ 9:45, DR. KWAN 10/25/19 @ 11:00. DISHCARGE INSTRUCTIONS FAXED TO PCP, HOME HEALTH AND REVIEWED WITH PATIENT.
--- NOTE | 2019-10-07 11:10 | NUR ---
DISCHARGE CLINICALS FAXED TO LAURA CABRERA AT [facility] , AUTH. # [id number] WITH CONFORMATION RECIEVED
--- NOTE | 2019-10-07 11:20 | NUR ---
PT DISCHARGED TO HOME VIA WHEELCHAIR WITH [facility] DISCHARGE SUMMARY AND MEDS REVIEWED WITH PT. NO QUESTIONS OR CONCERNS DISCHARGE MEDS CALLED TO [facility]
== END 2019-10-07 12:51 | disposition home health service (06) | DRG 91 ==
LOC: D.REHAB 13:23
PROVIDERS: Internal Medicine Nephrology; ADMIT Emergency Medicine; ATTEND Emergency Medicine
DX: G72.89 Other specified myopathies (principal); N18.6 End stage renal disease; L03.116 Cellulitis of left lower limb; L03.115 Cellulitis of right lower limb; I13.2 Hypertensive heart and chronic kidney disease with heart failure and with stage 5 chronic kidney disease, or end stage renal disease; I50.20 Unspecified systolic (congestive) heart failure; E13.22 Other specified diabetes mellitus with diabetic chronic kidney disease; Z99.2 Dependence on renal dialysis; J44.9 Chronic obstructive pulmonary disease, unspecified; E78.5 Hyperlipidemia, unspecified; E11.649 Type 2 diabetes mellitus with hypoglycemia without coma; E11.22 Type 2 diabetes mellitus with diabetic chronic kidney disease